=== PATIENT | male | born 1945 | race Hispanic/Latino ===

== ENCOUNTER 2017-04-01 15:53 | Inpatient (IN) | payer MEDICARE ==
[2017-04-01 15:54] VITALS: BMI 37.5
--- NOTE | 2017-04-01 17:04 | C.PDOC ---
History Of Present Illness 71-year-old male, presents to the emergency department with complaints of leg pain. Patient states he has been experiencing worsening pain, swelling and discharge from his right lower leg over the past several days. Denies fevers, nausea/vomiting, or any other associated symptom. No other complaints at this time. Time Seen by Provider: 04/01/17 16:14 Chief Complaint (Nursing): Lower Extremity Problem/Injury History Per: Patient History/Exam Limitations: no limitations Onset/Duration Of Symptoms: Days Current Symptoms Are (Timing): Still Present Severity: Moderate Past Medical History Reviewed: Historical Data, Nursing Documentation, Vital Signs Vital Signs: Last Vital Signs Temp 98 F 04/01/17 16:00 Pulse 57 L 04/01/17 16:00 Resp 16 04/01/17 16:00 BP 127/78 04/01/17 16:00 Pulse Ox 100 04/01/17 17:10 - Medical History PMH: Arthritis (FINGERS), Colonic Polyps (large removed surgically), Fractures ( left leg as toddler), Kidney Stones, Peripheral Edema, Chronic Kidney Disease Family History: States: No Known Family Hx - Social History Hx Tobacco Use: Yes Hx Alcohol Use: Yes - Immunization History Hx Tetanus Toxoid Vaccination: Yes Hx Influenza Vaccination: Yes Hx Pneumococcal Vaccination: Yes Review Of Systems Except As Marked, All Systems Reviewed And Found Negative. Constitutional: Negative for: Fever, Chills Cardiovascular: Negative for: Chest Pain Respiratory: Negative for: Shortness of Breath Gastrointestinal: Negative for: Vomiting Musculoskeletal: Positive for: Leg Pain. Negative for: Back Pain Skin: Negative for: Rash Neurological: Negative for: Weakness, Numbness Physical Exam - Physical Exam Appears: Non-toxic, No Acute Distress Skin: Warm, Dry, No Rash Head: Atraumatic, Normacephalic Eye(s): bilateral: Normal Inspection, PERRL, EOMI Oral Mucosa: Moist Throat: No Erythema, No Exudate Neck: Normal ROM Chest: Symmetrical, No Tenderness Cardiovascular: Rhythm Regular, No Friction Rub, No Murmur Respiratory: Normal Breath Sounds, No Accessory Muscle Use, No Rales, No Rhonchi , No Wheezing Gastrointestinal/Abdominal: Soft, No Tenderness Extremity: Tenderness, Swelling, Other (right medial calf w/ (+)swelling, warmth , tenderness and erythema. 10x10 cm area of weeping and edema. foul smelling discharge. Left leg is normal) Pulses: Left Dorsalis Pedis: Normal, Right Dorsalis Pedis: Normal Neurological/Psych: Oriented x3, Normal Speech, Normal Motor, Normal Sensation Gait: Steady ED Course And Treatment - Laboratory Results Result Diagrams: 04/01/17 17:25 04/01/17 17:25 O2 Sat by Pulse Oximetry: 100 (on RA) Pulse Ox Interpretation: Normal Medical Decision Making Medical Decision Making: Plan: * CMP * CBC * Wound Culture * Reassess and Disposition The case was discussed with Dr. Leblanc (internal medicine oncall) who agrees to admit the patient to his service. Disposition - Disposition Disposition: HOSPITALIZED Disposition Time: 19:02 Condition: FAIR - Clinical Impression Clinical Impression: Cellulitis of right leg - Scribe Statement The provider has reviewed the documentation as recorded by the Scribe (Juan Cherry) All medical record entries made by the Scribe were at my direction and personally dictated by me. I have reviewed the chart and agree that the record accurately reflects my personal performance of the history, physical exam, medical decision making, and the department course for this patient. I have also personally directed, reviewed, and agree with the discharge instructions and disposition.
[2017-04-01 17:28] LABS: BASO % 0.2 % (0.0-2.0); EOS # 0.4 K/uL (0.0-0.7); EOS % 3.4 % (0.0-4.0); HEMATOCRIT 36.2 % (35.0-51.0); LYMPH # 2.2 K/uL (1.0-4.3); LYMPH % 20.2 % (20.0-40.0); MEAN CELL VOLUME 92.8 fL (80.0-94.0); MEAN CORPUSCULAR HEMOGLOBIN 31.2 pg (27.0-31.0); MEAN CORPUSCULAR HGB CONC 33.7 g/dL (33.0-37.0); MEAN PLATELET VOLUME 8.7 fL (7.2-11.7); MONO # 0.8 K/uL (0.0-0.8); MONO % 7.7 % (0.0-10.0); NRBC % 0.1 % (0.0-2.0); RED CELL DISTRIBUTION WIDTH 13.2 % (11.5-14.5); WHITE BLOOD COUNT 10.7 K/uL (4.8-10.8)
[2017-04-01 17:36] LABS: CHLORIDE 106 mmol/L (98-107)
[2017-04-01 17:37] LABS: POTASSIUM 4.2 mmol/L (3.6-5.2); SODIUM 139 mmol/L (132-148)
[2017-04-01 17:39] LABS: ALB/GLOB RATIO 1.2 (1.0-2.1); ALKALINE PHOSPHATASE 71 U/L (38-126); TOTAL PROTEIN 6.3 g/dL (6.3-8.3)
[2017-04-01 17:40] LABS: ALT/SGPT 21 U/L (21-72); BLOOD UREA NITROGEN 19 mg/dL (9-20); CALCIUM 8.4 mg/dl (8.6-10.4); GLUCOSE,RANDOM 97 mg/dL (75-110)
[2017-04-01 17:58] LABS: AST/SGOT 10 U/L (17-59); BILIRUBIN,TOTAL 0.4 mg/dL (0.2-1.3); CARBON DIOXIDE 22 mmol/L (22-30); GFR AFRICAN-AMERICAN > 60
[2017-04-01] MEDS ORDERED: Vancomycin 1 GM 1 GM/250 ML BAG IVPB STA (19:03)
[2017-04-01] MEDS ORDERED: Vancomycin 1 GM 1 GM/250 ML BAG IVPB ONE (19:52)
[2017-04-01] MEDS ORDERED: Oxycodone/Acetaminophen 5/325 mg Tab ONE (19:52)
[2017-04-01] MEDS: Oxycodone/Acetaminophen 5/325 mg Tab PO PRN (20:02)
[2017-04-01] MEDS ORDERED: Aztreonam 1 GM in Sodium Chloride 0.9% 100 ML IVPB STA (20:10)
[2017-04-01 22:00] VITALS: RESP 20
--- NOTE | 2017-04-01 22:26 | CP.PCM.HP ---
History of Present Illness - History of Present Illness History of Present Illness: COMPREHENSIVE HISTORY & PHYSICAL EXAM HPI PT STATES THAT HE HAS LEG SWELLING FOR FEW MONTHS AND RECENTLY THE ULCER HAS INCREASED IN SIZE WITH OOZING AND MORE SWELLING OF R. LEG . NO FEVER, CHILLS OR INJURY PT HAS NO MEDICAL F/U PAST HIST. FEW VISITS WITH UROLOGY FOR KIDNEY STONE [facility]OP[facility] PERSONAL HIST: Smoking. N Alcohol. N Allergy N Travel_- . FAMILY HIST : ROS : Constitutional: Negative for weight change, chills, night sweats, fatigue and usage of assist device. Eyes: Negative for redness, swelling, itching, discharge, vision changes, blurry vision, double vision, glaucoma, cataracts, Ears: Negative for hearing loss, ringing, , tinnitus, vertigo Nose: Negative for rhinorrhea, stuffiness, sniffing, itching, postnasal drip, discoloration, nasal congestion and epistaxis. Throat: Negative for throat clearing, sore throat, hoarseness, difficulty swallowing and difficulty speaking. Respiratory: Negative for cough, , sputum production, chest tightness, wheezing, pleuritic chest pain ,daytime somnolence, chronic cough, hemoptysis, snoring at night, Cardiovascular: Negative for chest pain, palpitations, orthopnea, PND, Edema of legs, leg cramps, angina, claudication, , irregular heartbeat, Neurology: Negative for irritability, muscle weakness, numbness and tingling, seizures, tremors, migraines, slurred speech, syncope, memory loss, mood changes , recurrent headaches Gastrointestinal: Negative for difficulty swallowing, diarrhea, constipation, black stools, rectal bleeding, nausea, flatulence, reflux, poor appetite, changes in bowel habits, abdominal pain Genitourinary: Negative for frequent urination, hematuria, discharge, incontinence, urinary retention, frequent UTI, Psychiatric: Negative for depression, anxiety/panic, suicidal tendencies, Musculoskeletal R. LEG IS SWOLLEN WITH OOZING ULCER . Skin: Negative for rash, ulcers, itching, dry skin and pigmented lesions. P/E: Constitutional: Appears stated age and in no apparent distress. Head: Normocephalic. Ears: External ear canals patent without inflammation. Tympanic membranes intact with normal light reflex and landmark. Eyes: Pupils are central, bilaterally equal, symmetrical and reacts to light with normal movements and no icterus or pallor. Nose: External nares are patent. Mucosa is pink Mouth-Throat: Good general appearance and condition. No post-pharyngeal/oropharyngeal erythema and tonsillar hypertrophy. Good dental hygiene. Neck-Lymphatic: Neck is supple with normal ROM, no thyromegaly, lymph nodes or masses. JVD is normal with no carotid bruit. Lungs: Clear to percussion and auscultation with bilateral normal air entry. Cardiovascular: S1 and S2 are normal with no murmurs, gallops and rub. GI Exam: No hepatomegaly. Abdomen is soft and non-tender. No Organomegaly , masses or hernias are evident and bowel sounds are normal and active. Neurology: Higher function and all cranial nerves intact, with no gross motor or sensory deficit. Superficial and deep reflexes are normal with downwards planters. No cerebellar deficit with normal gait. Musculoskeletal: No tender spots with normal curvature of the spine with no swelling or restricted ROM of the small and large joints. Extremities ULCER ON R LEG WITH SPREADING CELLULITIS WITH EDEMA Skin: No rash, eruptions or abnormal skin pigmentation LAB/RADIOLOGY: ASSESMENT : R/ LEG ULCER/ABSCESS/CELLULITIS /EDEMA PLAN: IV AB ID/POD/VAS EVAL Present on Admission - Present on Admission Any Indicators Present on Admission: No Past Patient History - Infectious Disease Hx of Infectious Diseases: None - Past Medical History & Family History Past Medical History?: Yes - Past Social History Smoking Status: Former Smoker - CARDIAC Hx Peripheral Edema: Yes - PULMONARY Hx Respiratory Disorders: No - NEUROLOGICAL Hx Neurological Disorder: No - HEENT Hx HEENT Problems: Yes Hx Glaucoma: Yes - RENAL Hx Chronic Kidney Disease: Yes Hx Kidney Stones: Yes - ENDOCRINE/METABOLIC Hx Endocrine Disorders: No - HEMATOLOGICAL/ONCOLOGICAL Hx Blood Disorders: No - INTEGUMENTARY Hx Dermatological Problems: No - MUSCULOSKELETAL/RHEUMATOLOGICAL Hx Arthritis: Yes (FINGERS) Hx Fractures: Yes (left leg as toddler) - GASTROINTESTINAL Hx Gastrointestinal Disorders: Yes Hx Bowel Surgery: Yes (COLON RESECTION) - GENITOURINARY/GYNECOLOGICAL Hx Genitourinary Disorders: Yes Hx Prostate Problems: Yes - SURGICAL HISTORY Hx Surgeries: Yes Other/Comment: Cysto, stent insertion 09/29/15. STONE CENTER/LITHOTRIPSY - ANESTHESIA Hx Anesthesia: Yes Hx Anesthesia Reactions: No Hx Malignant Hyperthermia: No Meds Allergies/Adverse Reactions: Allergies Allergy/AdvReac Type Severity Reaction Status Date / Time cefdinir [From Omnicef] Allergy Verified 04/01/17 16:01 Results - Vital Signs Recent Vital Signs: Last Vital Signs Temp 98 F 04/01/17 21:59 Pulse 66 04/01/17 21:59 Resp 20 04/01/17 21:59 BP 103/67 04/01/17 21:59 Pulse Ox 96 04/01/17 21:59 - Labs Result Diagrams: 04/02/17 07:15 04/02/17 07:11
[2017-04-01] MEDS: Aztreonam 1 GM in Sodium Chloride 0.9% 100 ML IVPB SCH (23:50)
[2017-04-02] MEDS: Oxycodone/Acetaminophen 5/325 mg Tab PO PRN ×2 (02:28→16:53)
[2017-04-02 07:34] LABS: BASO # 0.1 K/uL (0.0-0.2); BASO % 0.8 % (0.0-2.0); EOS # 0.3 K/uL (0.0-0.7); EOS % 3.1 % (0.0-4.0); HEMATOCRIT 35.3 % (35.0-51.0); LYMPH # 1.3 K/uL (1.0-4.3); MEAN CELL VOLUME 92.8 fL (80.0-94.0); MEAN CORPUSCULAR HEMOGLOBIN 31.2 pg (27.0-31.0); MEAN CORPUSCULAR HGB CONC 33.6 g/dL (33.0-37.0); MEAN PLATELET VOLUME 8.9 fL (7.2-11.7); MONO # 0.8 K/uL (0.0-0.8); MONO % 8.4 % (0.0-10.0); RED CELL DISTRIBUTION WIDTH 13.5 % (11.5-14.5); WHITE BLOOD COUNT 9.3 K/uL (4.8-10.8)
[2017-04-02 07:38] LABS: CHLORIDE 111 mmol/L (98-107); POTASSIUM 3.6 mmol/L (3.6-5.2); SODIUM 141 mmol/L (132-148)
[2017-04-02 07:41] LABS: BLOOD UREA NITROGEN 16 mg/dL (9-20); CARBON DIOXIDE 22 mmol/L (22-30); GFR AFRICAN-AMERICAN > 60
[2017-04-02 07:42] LABS: CALCIUM 8.4 mg/dl (8.6-10.4); GLUCOSE,RANDOM 104 mg/dL (75-110)
[2017-04-02] MEDS: Aztreonam 1 GM in Sodium Chloride 0.9% 100 ML IVPB SCH ×2 (10:33→22:18)
[2017-04-02] MEDS: Enoxaparin 40 mg Syringe SC SCH (10:33)
--- NOTE | 2017-04-02 14:13 | CP.PCM.PN ---
Subjective - Date & Time of Evaluation Date of Evaluation: 04/02/17 Time of Evaluation: 14:10 - Subjective Subjective: CHIEF COMPLAINTS TODAY : R. LEF PAIN/SWELLING ROS. HEENT : N. Resp : No cough, wheezing ,pleuritic CP ,or hemoptysis Cardio : No anginal CP, PND, orthopnea, palpitation GI : No abd.pain, n/v ,diarrhea or GI bleeding . 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 Musculoskel : No joint swelling , Derm : No rash Psych : Normal affect. Ext : R. LEG SWOLLEN PE. Pt. is alert awake in no distress. V.S As noted in the chart Head ,ear nose,throat and eyes : Normal. Neck : Supple with normal carotids. Lungs: Clear air entry. Heart : S1 & S2 normal with S4. No murmur. Abd : Soft non tender with normal bowel sounds. Neuro : Moves all ext. with no localized deficit. Ext : R. LEG SWOLLEN WITH SPREADING CELLULITIS Derm : No rashes or decubitus ulcer. LABS/RADIOLOGY: C/S GRAM -VE RODS ASSESSMENT/PLAN : IV AB PER ID LOCAL WOUND CARE , POD/VAS EVAL Objective - Vital Signs/Intake and Output Vital Signs (last 24 hours): Temp Pulse Resp BP Pulse Ox 98.8 F 77 20 107/69 98 04/02/17 08:00 04/02/17 08:00 04/02/17 08:00 04/02/17 08:00 04/02/17 08:00 Intake and Output: 04/02/17 04/02/17 11:59 23:59 Intake Total 340 Output Total 400 Balance -60 - Medications Medications: Current Medications Enoxaparin Sodium (Lovenox) 40 mg SC DAILY [facility] Last Admin: 04/02/17 10:33 Dose: 40 mg Aztreonam 1 gm/ Sodium (Chloride) 100 mls @ 100 mls/hr IVPB Q12H K[facility]AN Last Admin: 04/02/17 10:33 Dose: 100 mls/hr Vancomycin/Sodium Chloride (Vancocin) 1 gm in 200 mls @ 133.333 mls/hr IVPB Q24H [facility] Stop: 04/07/17 20:01 Oxycodone/Acetaminophen (Percocet 5/325 Mg Tab) 1 tab PO Q6H PRN PRN Reason: Pain, moderate (4-7) Stop: 04/04/17 19:49 Last Admin: 04/02/17 02:28 Dose: 1 tab - Labs Labs: 04/02/17 07:15 04/02/17 07:11
--- NOTE | 2017-04-02 14:28 | RAD ---
PROCEDURE: Right Ankle Radiographs. HISTORY: cellulitis rt ankle and leg COMPARISON: None FINDINGS: BONES: No fracture. Plantar calcaneal spur noted. JOINTS: Normal. No osteoarthritis. Ankle mortise maintained. Talar dome intact SOFT TISSUES: Circumferential soft tissue swelling. Soft tissue swelling of lower extremity as well. OTHER FINDINGS: None. IMPRESSION: Soft tissue swelling. Plantar calcaneal spur.
--- NOTE | 2017-04-02 19:07 | CP.PCM.CON ---
History of Present Illness - History of Present Illness History of Present Illness: INFECTIOUS DISEASE CONSULT: DICTATED; DICTATION NUMBER; [id number] SEE REPORTS. Past Patient History - Infectious Disease Hx of Infectious Diseases: None - Past Medical History & Family History Past Medical History?: Yes - Past Social History Smoking Status: Former Smoker - CARDIAC Hx Peripheral Edema: Yes - PULMONARY Hx Respiratory Disorders: No - NEUROLOGICAL Hx Neurological Disorder: No - HEENT Hx HEENT Problems: Yes Hx Glaucoma: Yes - RENAL Hx Chronic Kidney Disease: Yes Hx Kidney Stones: Yes - ENDOCRINE/METABOLIC Hx Endocrine Disorders: No - HEMATOLOGICAL/ONCOLOGICAL Hx Blood Disorders: No - INTEGUMENTARY Hx Dermatological Problems: No - MUSCULOSKELETAL/RHEUMATOLOGICAL Hx Arthritis: Yes (FINGERS) Hx Fractures: Yes (left leg as toddler) - GASTROINTESTINAL Hx Gastrointestinal Disorders: Yes Hx Bowel Surgery: Yes (COLON RESECTION) - GENITOURINARY/GYNECOLOGICAL Hx Genitourinary Disorders: Yes Hx Prostate Problems: Yes - SURGICAL HISTORY Hx Surgeries: Yes Other/Comment: Cysto, stent insertion 09/29/15. STONE CENTER/LITHOTRIPSY - ANESTHESIA Hx Anesthesia: Yes Hx Anesthesia Reactions: No Hx Malignant Hyperthermia: No Meds Allergies/Adverse Reactions: Allergies Allergy/AdvReac Type Severity Reaction Status Date / Time cefdinir [From Omnicef] Allergy Verified 04/01/17 16:01 - Medications Medications: Current Medications Enoxaparin Sodium (Lovenox) 40 mg SC DAILY [facility] Last Admin: 04/02/17 10:33 Dose: 40 mg Aztreonam 1 gm/ Sodium (Chloride) 100 mls @ 100 mls/hr IVPB Q12H [facility] Last Admin: 04/02/17 10:33 Dose: 100 mls/hr Vancomycin/Sodium Chloride (Vancocin) 1 gm in 200 mls @ 133.333 mls/hr IVPB Q24H [facility] Stop: 04/07/17 20:01 Oxycodone/Acetaminophen (Percocet 5/325 Mg Tab) 1 tab PO Q6H PRN PRN Reason: Pain, moderate (4-7) Stop: 04/04/17 19:49 Last Admin: 04/02/17 16:53 Dose: 1 tab Results - Vital Signs Recent Vital Signs: Last Vital Signs Temp 98.0 F 04/02/17 15:10 Pulse 75 04/02/17 15:10 Resp 20 04/02/17 15:10 BP 124/73 04/02/17 15:10 Pulse Ox 100 04/02/17 15:10 - Labs Result Diagrams: 04/02/17 07:15 04/02/17 07:11 Labs: Laboratory Results - last 24 hr 04/02/17 04/02/17 04/02/17 07:11 07:11 07:15 WBC 9.3 RBC 3.80 L Hgb 11.8 L Hct 35.3 MCV 92.8 MCH 31.2 H MCHC 33.6 RDW 13.5 Plt Count 202 MPV 8.9 Neut % (Auto) 73.7 Lymph % (Auto) 14.0 L [place] % (Auto) 8.4 Eos % (Auto) 3.1 Baso % (Auto) 0.8 Neut # 6.8 Lymph # 1.3 [place] # 0.8 Eos # 0.3 Baso # 0.1 ESR 15 Sodium 141 Potassium 3.6 Chloride 111 H Carbon Dioxide 22 Anion Gap 12 BUN 16 Creatinine 1.0 Est GFR ( Amer) > 60 Est GFR (Non-Af Amer) > 60 Random Glucose 104 Calcium 8.4 L C-React Prot High Sens 7.84 H
[2017-04-02] MEDS: Vancomycin 1 gm/NS 200 ml 1 GM/200 ML BAG IVPB SCH (19:53)
--- NOTE | 2017-04-02 23:40 | CON ---
DATE: 04/02/2017 REQUESTING PHYSICIAN: Dr. Leblanc. REASON FOR CONSULTATION: Extensive cellulitis right lower extremity and edema. HISTORY OF PRESENT ILLNESS: The patient is a 71-year-old male with history of arthritis, fractures o f the left leg as a toddler, kidney stones, colon polyps, and chronic kidney disease who was admitted via the Emergency Room because of experiencing worsening pain and swelling and discharge from his ri ght lower extremity over the past several days. The patient tried to nurse himself by undergoing soa ks and bandages, but with no relief, until the pain got so worse that he came to the ER for further a dvice. The patient denies any fevers or chills. Denies any nausea or vomiting or any other associat ed symptoms. The patient states he has been having these problems off and on, but recently has gotte n worse. The patient was advised admission for further evaluation and septic workup including wound cultures and blood cultures. Infectious disease consultation requested by PMD for further evaluation of IV antibiotics as the patient is ALLERGIC TO CEFDINIR. PAST MEDICAL HISTORY: As above, history of arthritis, especially of the fingers. Colon polyp surgic ally removed in the past, fractures left leg as a toddler, kidney stones, peripheral edema, chronic k idney disease. FAMILY HISTORY: Unknown denies any history of diabetes or hypertension in the family or heart diseas e. SOCIAL HISTORY: He states he used to smoke, but has quit about 10 years ago. History of alcohol use socially . IMMUNIZATION HISTORY: Has had tetanus toxoid vaccination and is up-to-date on influenza vaccination and pneumococcal vaccination. ALLERGIES: As reported above, ALLERGIC TO CEFDINIR. REVIEW OF SYSTEMS: Presently: CONSTITUTIONAL: Denies any fever or chills. CARDIOVASCULAR: Denies any chest pain. RESPIRATORY: Denies any shortness of breath or cough, except shortness of breath on exertion. GASTROINTESTINAL: Denies any nausea, vomiting or diarrhea or constipation. MUSCULOSKELETAL: Complains of excruciating pain in left leg, especially during the past few days. D enies any history of back pain. Complains of pain, arthritis, especially in both hands. SKIN: Negative for rash, except for the right lower extremity. CENTRAL NERVOUS SYSTEM: Denies any weakness, numbness, tingling sensation in the lower extremities. MEDICATIONS: As per chart reviewed. Presently, the patient started on IV vancomycin 1 gram q. 24 ho urly. PHYSICAL EXAMINATION: GENERAL: The patient is awake, alert, not in any acute distress. VITAL SIGNS: Afebrile, blood pressure 127/78, respirations 16, pulse of 57, pulse ox 100% on room ai r. HEENT: Pupils equal, reactive to light and accommodation. Extraocular movements full. Fundus negat oscar. Sclerae nonicteric. Conjunctivae normal. JVP not elevated. NECK: Appears to be supple. No lymphadenopathy. LUNGS: Fair air entry. Few basilar rales. CARDIOVASCULAR SYSTEM: S1, S2 regular. No murmur or rub. ABDOMEN: Obese, soft, nontender. Bowel sounds are present. EXTREMITIES: Right lower extremity, especially medial calf with swelling and warmth and tenderness w ith erythema extending over the entire right lower leg from the foot on up to the knee. There is als o an area of denudation 10 cm x 10 cm of weeping and edema and foul smelling discharge. Left leg leatha ears to be normal. Pulses: Dorsalis pedis left is normal. Right dorsalis pedis difficult to palpat e, but present. CENTRAL NERVOUS SYSTEM: Awake, alert, not in any acute distress. Normal speech. Motor and sensory sensation seem to be intact. Gait appears to be steady. LABORATORY DATA: Presently, WBC on admission was 10.7, presently 9.3; H and H is 11.8 and 35.3; plat elets 202. Creatinine 1, BUN of 16. CRP 7.84. Wound cultures showing gram-negative manasa 1 and gram- negative manasa 2 with gram-positive cocci, identification pending. IMPRESSION: 1. Cellulitis, right lower extremity with infected ulcers, most likely ischemic, rule out peripheral vascular disease. 2. History of kidney stones. 3. Renal insufficiency. 4. Colon polyps. 5. Arthritis. PLAN: 1. Louis cultures. We will get wound culture sensitivity. We will get sed rate and CRP. Continue IV vancomycin 1 gram daily as ordered day #1. 2. We will add IV Azactam 1 gram loading dose followed by if tolerated q. 12 hourly. As reported, t he patient states the patient tolerated it. 3. Follow up renal functions closely. Podiatry consult with Dr. Jassi Minor in progress. Arterial D oppler studies as ordered by PMD. The patient will need vascular workup and IV antibiotics for a pro longed period of time. We will follow along with you. Thank you very much for allowing me to participate in the care of your patient. We will adjust antib iotics after cultures are obtained and final identification pending. Mustapha Patel MD cc: [id number] TT: 04/02/2017 23:39:24 Confirmation # [id number] Dictation # [id number] mn
[2017-04-03 09:19] LABS: BASO % 0.2 % (0.0-2.0); EOS # 0.2 K/uL (0.0-0.7); EOS % 2.7 % (0.0-4.0); HEMATOCRIT 35.6 % (35.0-51.0); LYMPH # 1.3 K/uL (1.0-4.3); LYMPH % 15.5 % (20.0-40.0); MEAN CORPUSCULAR HEMOGLOBIN 31.2 pg (27.0-31.0); MEAN CORPUSCULAR HGB CONC 33.2 g/dL (33.0-37.0); MEAN PLATELET VOLUME 9.2 fL (7.2-11.7); MONO # 0.7 K/uL (0.0-0.8); MONO % 8.4 % (0.0-10.0); RED CELL DISTRIBUTION WIDTH 13.4 % (11.5-14.5); WHITE BLOOD COUNT 8.6 K/uL (4.8-10.8)
[2017-04-03 09:49] LABS: CHLORIDE 106 mmol/L (98-107); POTASSIUM 3.5 mmol/L (3.6-5.2); SODIUM 138 mmol/L (132-148)
[2017-04-03 09:51] LABS: AST/SGOT 11 U/L (17-59); BILIRUBIN,TOTAL 0.7 mg/dL (0.2-1.3); CARBON DIOXIDE 21 mmol/L (22-30); GFR AFRICAN-AMERICAN > 60
[2017-04-03 09:52] LABS: ALB/GLOB RATIO 1.1 (1.0-2.1); ALKALINE PHOSPHATASE 64 U/L (38-126); ALT/SGPT 21 U/L (21-72); BLOOD UREA NITROGEN 16 mg/dL (9-20); CALCIUM 8.1 mg/dl (8.6-10.4); GLUCOSE,RANDOM 171 mg/dL (75-110); TOTAL PROTEIN 5.9 g/dL (6.3-8.3)
[2017-04-03] MEDS: Enoxaparin 40 mg Syringe SC SCH (09:53)
[2017-04-03] MEDS: Oxycodone/Acetaminophen 5/325 mg Tab PO PRN ×2 (09:53→22:26)
[2017-04-03] MEDS: Aztreonam 1 GM in Sodium Chloride 0.9% 100 ML IVPB SCH ×2 (09:59→22:28)
--- NOTE | 2017-04-03 11:55 | CP.PCM.PN ---
Subjective - Date & Time of Evaluation Date of Evaluation: 04/03/17 Time of Evaluation: 11:54 - Subjective Subjective: CHIEF COMPLAINTS TODAY : R. LEG PAIN/SWELLING ROS. HEENT : N. Resp : No cough, wheezing ,pleuritic CP ,or hemoptysis Cardio : No anginal CP, PND, orthopnea, palpitation GI : No abd.pain, n/v ,diarrhea or GI bleeding . 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 Musculoskel : No joint swelling , Derm : No rash Psych : Normal affect. Ext : R. LEG SWOLLEN PE. Pt. is alert awake in no distress. V.S As noted in the chart Head ,ear nose,throat and eyes : Normal. Neck : Supple with normal carotids. Lungs: Clear air entry. Heart : S1 & S2 normal with S4. No murmur. Abd : Soft non tender with normal bowel sounds. Neuro : Moves all ext. with no localized deficit. Ext : R. LEG SWOLLEN WITH SPREADING CELLULITIS DISCOLORATION Derm : No rashes or decubitus ulcer. LABS/RADIOLOGY: C/S GRAM -VE RODS SERRSTIA ASSESSMENT/PLAN : IV AB PER ID LOCAL WOUND CARE , VASCULAR EVAL SO FAR SUGARS ARE OK Objective - Vital Signs/Intake and Output Vital Signs (last 24 hours): Temp Pulse Resp BP Pulse Ox 97.3 F L 69 20 118/66 98 04/03/17 08:05 04/03/17 08:05 04/03/17 08:05 04/03/17 08:05 04/03/17 08:05 Intake and Output: 04/02/17 04/03/17 23:59 11:59 Intake Total 650 Balance 650 - Medications Medications: Current Medications Enoxaparin Sodium (Lovenox) 40 mg SC DAILY [facility] Last Admin: 04/03/17 09:53 Dose: 40 mg Aztreonam 1 gm/ Sodium (Chloride) 100 mls @ 100 mls/hr IVPB Q12H [facility] Last Admin: 04/03/17 09:59 Dose: 100 mls/hr Vancomycin/Sodium Chloride (Vancocin) 1 gm in 200 mls @ 133.333 mls/hr IVPB Q24H [facility] Stop: 04/07/17 20:01 Last Admin: 04/02/17 19:53 Dose: 133.333 mls/hr Oxycodone/Acetaminophen (Percocet 5/325 Mg Tab) 1 tab PO Q6H PRN PRN Reason: Pain, moderate (4-7) Stop: 04/04/17 19:49 Last Admin: 04/03/17 09:53 Dose: 1 tab - Labs Labs: 04/03/17 09:03 04/03/17 09:03
--- NOTE | 2017-04-03 12:09 | CP.PCM.CON ---
History of Present Illness - History of Present Illness History of Present Illness: 71 year old male patient seen at bedside resting comfortably, AAOx3 and NAD. Patient is complaining of pain to his right leg over the past few days. Patient states that he has had cellulitis in the past, but believes his leg looks worse than previous episodes. Patient denies N/V/F/D/SOB/CP. No other pedal complaints at this time. PMHx: Colinic polyps, fractures, kidney stones, peripheral edema, chronic kidney disease PSH:Colon removal Fx: unknown: All: cefdinir Review of Systems - Review of Systems Review of Systems: All systems reviewed and are negative except per HPI Past Patient History - Infectious Disease Hx of Infectious Diseases: None - Past Medical History & Family History Past Medical History?: Yes - Past Social History Smoking Status: Former Smoker - CARDIAC Hx Peripheral Edema: Yes - PULMONARY Hx Respiratory Disorders: No - NEUROLOGICAL Hx Neurological Disorder: No - HEENT Hx HEENT Problems: Yes Hx Glaucoma: Yes - RENAL Hx Chronic Kidney Disease: Yes Hx Kidney Stones: Yes - ENDOCRINE/METABOLIC Hx Endocrine Disorders: No - HEMATOLOGICAL/ONCOLOGICAL Hx Blood Disorders: No - INTEGUMENTARY Hx Dermatological Problems: No - MUSCULOSKELETAL/RHEUMATOLOGICAL Hx Arthritis: Yes (FINGERS) Hx Fractures: Yes (left leg as toddler) - GASTROINTESTINAL Hx Gastrointestinal Disorders: Yes Hx Bowel Surgery: Yes (COLON RESECTION) - GENITOURINARY/GYNECOLOGICAL Hx Genitourinary Disorders: Yes Hx Prostate Problems: Yes - SURGICAL HISTORY Hx Surgeries: Yes Other/Comment: Cysto, stent insertion 09/29/15. [facility]/LITHOTRIPSY - ANESTHESIA Hx Anesthesia: Yes Hx Anesthesia Reactions: No Hx Malignant Hyperthermia: No Meds Allergies/Adverse Reactions: Allergies Allergy/AdvReac Type Severity Reaction Status Date / Time cefdinir [From Omnicef] Allergy Verified 04/01/17 16:01 - Medications Medications: Current Medications Enoxaparin Sodium (Lovenox) 40 mg SC DAILY [facility] Last Admin: 04/03/17 09:53 Dose: 40 mg Aztreonam 1 gm/ Sodium (Chloride) 100 mls @ 100 mls/hr IVPB Q12H [facility] Last Admin: 04/03/17 09:59 Dose: 100 mls/hr Vancomycin/Sodium Chloride (Vancocin) 1 gm in 200 mls @ 133.333 mls/hr IVPB Q24H [facility] Stop: 04/07/17 20:01 Last Admin: 04/02/17 19:53 Dose: 133.333 mls/hr Oxycodone/Acetaminophen (Percocet 5/325 Mg Tab) 1 tab PO Q6H PRN PRN Reason: Pain, moderate (4-7) Stop: 04/04/17 19:49 Last Admin: 04/03/17 09:53 Dose: 1 tab Physical Exam - Constitutional Appears: Well, Non-toxic, No Acute Distress - Extremities Exam Additional comments: Vasc: DP and PT pulses palpable b/l. Erythema noted to lower 1/2 of right leg circumfirentially. Edema noted to right leg. Mild increase in skin temperature to RLE wound. Neuro: Gross sensation diminished. Derm: Multiple superficial ulcerations noted to right leg circumfirentially. Weeping serosanguious drainage noted. Mild malodor noted, no purulence noted. Ortho: Pain on palpation to right lower extremity. - Neurological Exam Neurological exam: Alert, Oriented x3 - Psychiatric Exam Psychiatric exam: Normal Affect, Normal Mood Results - Vital Signs Recent Vital Signs: Last Vital Signs Temp 97.3 F L 04/03/17 08:05 Pulse 69 04/03/17 08:05 Resp 20 04/03/17 08:05 BP 118/66 04/03/17 08:05 Pulse Ox 98 04/03/17 08:05 - Labs Result Diagrams: 04/03/17 09:03 04/03/17 09:03 Labs: Laboratory Results - last 24 hr 04/03/17 04/03/17 09:03 09:03 WBC 8.6 RBC 3.79 L Hgb 11.8 L Hct 35.6 MCV 94.0 MCH 31.2 H MCHC 33.2 RDW 13.4 Plt Count 187 MPV 9.2 Neut % (Auto) 73.2 Lymph % (Auto) 15.5 L Sutter % (Auto) 8.4 Eos % (Auto) 2.7 Baso % (Auto) 0.2 Neut # 6.3 Lymph # 1.3 Sutter # 0.7 Eos # 0.2 Baso # 0.0 Sodium 138 Potassium 3.5 L Chloride 106 Carbon Dioxide 21 L Anion Gap 15 BUN 16 Creatinine 1.0 Est GFR ( Amer) > 60 Est GFR (Non-Af Amer) > 60 Random Glucose 171 H Calcium 8.1 L Total Bilirubin 0.7 AST 11 L ALT 21 Alkaline Phosphatase 64 Total Protein 5.9 L Albumin 3.0 L Globulin 2.8 Albumin/Globulin Ratio 1.1 Assessment & Plan - Assessment and Plan (Free Text) Assessment: 71 year old male with cellulitis to RLE. Plan: Patient seen and evaluated at bedside. Charts, labs, vitals reviewed = afebrile, WBC WNL. Discussed with attending, Dr. Minor. Wound cleaned with saline and dressed with xeroform, 4x4 gauze, abd pads, and kerlix. Continue with IV abx as per ID. Podiatry will continue to follow while in house.
[2017-04-03] MEDS ORDERED: Potassium Chloride 20 mEq ER Tab PO ONE (18:00)
--- NOTE | 2017-04-03 18:51 | CP.PCM.PN ---
Subjective - Date & Time of Evaluation Date of Evaluation: 04/03/17 Time of Evaluation: 18:51 - Subjective Subjective: CHIEF COMPLAINTS TODAY : AFEBRILE C/O R. LEG PAIN/SWELLING seen by podiatry 04/03/17 and appreciated. ROS. HEENT : N. Resp : No cough, wheezing ,pleuritic CP ,or hemoptysis Cardio : No anginal CP, PND, orthopnea, palpitation GI : No abd.pain, n/v ,diarrhea or GI bleeding . 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 Musculoskel : No joint swelling , Derm : No rash Psych : Normal affect. Ext : R. LEG SWOLLEN /WARM WITH ULCERS PE. Pt. is alert awake in no distress. V.S As noted in the chart Head ,ear nose,throat and eyes : Normal. Neck : Supple with normal carotids. Lungs: Clear air entry. Heart : S1 & S2 normal with S4. No murmur. Abd : Soft non tender with normal bowel sounds. Neuro : Moves all ext. with no localized deficit. Ext : R. LEG SWOLLEN WITH SPREADING CELLULITIS DISCOLORATION ,+VE MALODOROUS DRAINAGE. Derm : No rashes or decubitus ulcer. LABS/RADIOLOGY: C/S RT LEG - [facility]ERR[facility] MARCESENS,[facility] b. ASSESSMENT RT.LE CELLULITIS/INFECTED ULCERS ? ISCHEMIC R/O PVD. CRI. HX .KIDNEY STONES /PLAN : CONTINUE iv AZACTAM 1 G EVERY 12 HOURLY 04/02/17. CONTINUE iv VANCOMYCIN 1 G EVERY 24 HOURLY. 04/01/17 LOCAL WOUND CARE PER PODIATRY VASCULAR EVAL IN PROGRESS. Objective - Vital Signs/Intake and Output Vital Signs (last 24 hours): Temp Pulse Resp BP Pulse Ox 98.8 F 71 20 120/69 97 04/03/17 15:00 04/03/17 15:00 04/03/17 15:00 04/03/17 15:00 04/03/17 15:00 Intake and Output: 04/03/17 04/03/17 06:59 18:59 Intake Total 650 Balance 650 - Medications Medications: Current Medications Enoxaparin Sodium (Lovenox) 40 mg SC DAILY [facility] Last Admin: 04/03/17 09:53 Dose: 40 mg Aztreonam 1 gm/ Sodium (Chloride) 100 mls @ 100 mls/hr IVPB Q12H [facility] Last Admin: 04/03/17 09:59 Dose: 100 mls/hr Vancomycin/Sodium Chloride (Vancocin) 1 gm in 200 mls @ 133.333 mls/hr IVPB Q24H [facility] Stop: 04/07/17 20:01 Last Admin: 04/02/17 19:53 Dose: 133.333 mls/hr Oxycodone/Acetaminophen (Percocet 5/325 Mg Tab) 1 tab PO Q6H PRN PRN Reason: Pain, moderate (4-7) Stop: 04/04/17 19:49 Last Admin: 04/03/17 09:53 Dose: 1 tab - Labs Labs: 04/03/17 09:03 04/03/17 09:03
[2017-04-03] MEDS: Vancomycin 1 gm/NS 200 ml 1 GM/200 ML BAG IVPB SCH (20:41)
--- NOTE | 2017-04-04 00:31 | CP.PCM.CON ---
<Jude Taveras - Last Filed: 04/04/17 01:01> History of Present Illness - History of Present Illness History of Present Illness: SURGERY CONSULT NOTE FOR DR. FENG 71M presents with Right lower extremity pain and swelling. Patient states he has had this for years but the pain became much worse on Tuesday. He denies any fevers, chills. He states the right lower leg also has wounds that weep clear fluid and soak the dressings on his leg. He denies foul smelling odor and purulent discharge from ulcers. Denies loss of sensation and motor function in that leg. The left leg is completely asymptomatic. PMH: Colonic polyp, kidney stone, CKD, right leg edema PSH: Colectomy Social: denies tobacco, alcohol abuse Allergies: Cefdinir Past Patient History - Infectious Disease Hx of Infectious Diseases: None - Past Medical History & Family History Past Medical History?: Yes - Past Social History Smoking Status: Former Smoker - CARDIAC Hx Peripheral Edema: Yes - PULMONARY Hx Respiratory Disorders: No - NEUROLOGICAL Hx Neurological Disorder: No - HEENT Hx HEENT Problems: Yes Hx Glaucoma: Yes - RENAL Hx Chronic Kidney Disease: Yes Hx Kidney Stones: Yes - ENDOCRINE/METABOLIC Hx Endocrine Disorders: No - HEMATOLOGICAL/ONCOLOGICAL Hx Blood Disorders: No - INTEGUMENTARY Hx Dermatological Problems: No - MUSCULOSKELETAL/RHEUMATOLOGICAL Hx Arthritis: Yes (FINGERS) Hx Fractures: Yes (left leg as toddler) - GASTROINTESTINAL Hx Gastrointestinal Disorders: Yes Hx Bowel Surgery: Yes (COLON RESECTION) - GENITOURINARY/GYNECOLOGICAL Hx Genitourinary Disorders: Yes Hx Prostate Problems: Yes - SURGICAL HISTORY Hx Surgeries: Yes Other/Comment: Cysto, stent insertion 09/29/15. [facility]/LITHOTRIPSY - ANESTHESIA Hx Anesthesia: Yes Hx Anesthesia Reactions: No Hx Malignant Hyperthermia: No Meds Allergies/Adverse Reactions: Allergies Allergy/AdvReac Type Severity Reaction Status Date / Time cefdinir [From Omnicef] Allergy Verified 04/01/17 16:01 - Medications Medications: Current Medications Enoxaparin Sodium (Lovenox) 40 mg SC DAILY [facility] Last Admin: 04/03/17 09:53 Dose: 40 mg Aztreonam 1 gm/ Sodium (Chloride) 100 mls @ 100 mls/hr IVPB Q12H [facility] Last Admin: 04/03/17 22:28 Dose: 100 mls/hr Vancomycin/Sodium Chloride (Vancocin) 1 gm in 200 mls @ 133.333 mls/hr IVPB Q24H [facility] Stop: 04/07/17 20:01 Last Admin: 04/03/17 20:41 Dose: 133.333 mls/hr Oxycodone/Acetaminophen (Percocet 5/325 Mg Tab) 1 tab PO Q6H PRN PRN Reason: Pain, moderate (4-7) Stop: 04/04/17 19:49 Last Admin: 04/03/17 22:26 Dose: 1 tab Physical Exam - Constitutional Appears: Non-toxic, No Acute Distress Additional comments: obese - Head Exam Head Exam: ATRAUMATIC - Eye Exam Eye Exam: EOMI, PERRL - ENT Exam ENT Exam: Mucous Membranes Moist - Respiratory Exam Respiratory Exam: Clear to Auscultation Bilateral, NORMAL BREATHING PATTERN - Cardiovascular Exam Cardiovascular Exam: REGULAR RHYTHM, +S1, +S2 - GI/Abdominal Exam GI & Abdominal Exam: Soft. absent: Distended, Firm, Guarding, Rebound, Rigid, Tenderness Additional comments: umbilical hernia, scab in mid abdomen from incision scar - Extremities Exam Additional comments: right leg edema from below knee, dry skin in right lower leg, ulcers with serous drainage, dressed with curlex - normal sensation and motor function in right leg. - Neurological Exam Neurological exam: Alert, Oriented x3 - Psychiatric Exam Psychiatric exam: Normal Affect, Normal Mood - Skin Skin Exam: Dry, Intact, Normal Color, Warm Results - Vital Signs Recent Vital Signs: Last Vital Signs Temp 98.8 F 04/03/17 15:00 Pulse 71 04/03/17 15:00 Resp 20 04/03/17 15:00 BP 120/69 04/03/17 15:00 Pulse Ox 97 04/03/17 15:00 - Labs Result Diagrams: 04/03/17 09:03 04/03/17 09:03 Labs: Laboratory Results - last 24 hr 04/03/17 04/03/17 09:03 09:03 WBC 8.6 RBC 3.79 L Hgb 11.8 L Hct 35.6 MCV 94.0 MCH 31.2 H MCHC 33.2 RDW 13.4 Plt Count 187 MPV 9.2 Neut % (Auto) 73.2 Lymph % (Auto) 15.5 L Hubbard % (Auto) 8.4 Eos % (Auto) 2.7 Baso % (Auto) 0.2 Neut # 6.3 Lymph # 1.3 Hubbard # 0.7 Eos # 0.2 Baso # 0.0 Sodium 138 Potassium 3.5 L Chloride 106 Carbon Dioxide 21 L Anion Gap 15 BUN 16 Creatinine 1.0 Est GFR ( Amer) > 60 Est GFR (Non-Af Amer) > 60 Random Glucose 171 H Calcium 8.1 L Total Bilirubin 0.7 AST 11 L ALT 21 Alkaline Phosphatase 64 Total Protein 5.9 L Albumin 3.0 L Globulin 2.8 Albumin/Globulin Ratio 1.1 Assessment & Plan - Assessment and Plan (Free Text) Assessment: 71M with lower extremity pain, swelling and ulcers, likely 2/2 chronic venous insufficiency Plan: - Continue antibiotics - Wound/dressing care as per podiatry - Patient was ordered arterial doppler of LE. will follow up results. Further recs discuss with Dr. Feng/[place] Taveras, PGY1 <Mark Feng - Last Filed: 04/04/17 15:15> History of Present Illness - History of Present Illness History of Present Illness: Patient seen and examined. Chart reviewed. In brief, 71 year-old male admitted with recurrent bout of right lower extremity cellulitis and weeping circumferential gaiter area ulcer. By patient's report, he saw Dr. Leone from vascular surgery as an outpatient within last few months and was told that he has a venous problem with recommendation of conservative management such as compression therapy and leg elevation. Patient has no obvious stigmata of PAD - both feet are warm, motor-sensory intact, with palpable DP pulses bilaterally. Clinically, right lower extremity presentation is suggestive of chronic venous insufficiency with ulcer. Patient denies known history of DVT or US-diagnosed venous insufficiency. He has not been compliant with compression therapy at home. I recommend venous duplex ultrasound of the right lower extremity to check for DVT as well as for deep and superficial venous insufficiency. Antibiotic treatment for infection. Local wound care with absorbent dressing. Compression therapy with EVON bandage and leg elevation. Meds - Medications Medications: Current Medications Enoxaparin Sodium (Lovenox) 40 mg SC DAILY [facility] Last Admin: 04/04/17 12:01 Dose: 40 mg Aztreonam 1 gm/ Sodium (Chloride) 100 mls @ 100 mls/hr IVPB Q12H [facility] Last Admin: 04/04/17 11:13 Dose: 100 mls/hr Vancomycin/Sodium Chloride (Vancocin) 1 gm in 200 mls @ 133.333 mls/hr IVPB Q24H [facility] Stop: 04/07/17 20:01 Last Admin: 04/03/17 20:41 Dose: 133.333 mls/hr Oxycodone/Acetaminophen (Percocet 5/325 Mg Tab) 1 tab PO Q6H PRN PRN Reason: Pain, moderate (4-7) Stop: 04/04/17 19:49 Last Admin: 04/03/17 22:26 Dose: 1 tab Results - Vital Signs Recent Vital Signs: Last Vital Signs Temp 98.1 F 04/04/17 08:26 Pulse 64 04/04/17 08:26 Resp 20 04/04/17 08:26 BP 113/70 04/04/17 08:26 Pulse Ox 98 04/04/17 08:26 - Labs Result Diagrams: 04/04/17 08:07 04/04/17 08:07 Labs: Laboratory Results - last 24 hr 04/04/17 04/04/17 08:07 08:07 WBC 8.1 RBC 3.83 L Hgb 12.1 Hct 35.9 MCV 93.8 MCH 31.5 H MCHC 33.6 RDW 13.5 Plt Count 206 MPV 9.0 Neut % (Auto) 72.2 Lymph % (Auto) 15.1 L Hubbard % (Auto) 8.4 Eos % (Auto) 3.8 Baso % (Auto) 0.5 Neut # 5.9 Lymph # 1.2 Hubbard # 0.7 Eos # 0.3 Baso # 0.0 Sodium 140 Potassium 4.3 Chloride 108 H Carbon Dioxide 22 Anion Gap 14 BUN 17 Creatinine 1.0 Est GFR ( Amer) > 60 Est GFR (Non-Af Amer) > 60 Random Glucose 114 H Calcium 8.7 Total Bilirubin 0.7 AST 14 L D ALT 16 L D Alkaline Phosphatase 71 Total Protein 6.2 L Albumin 3.2 L Globulin 3.0 Albumin/Globulin Ratio 1.1
--- NOTE | 2017-04-04 07:45 | CP.PCM.PN ---
<Troy Fish - Last Filed: 04/04/17 07:42> Subjective - Date & Time of Evaluation Date of Evaluation: 04/04/17 Time of Evaluation: 07:42 - Subjective Subjective: Surgery: Dr. Feng Pt seen and examined. Has pain at R leg. No improvement in pain Objective - Vital Signs/Intake and Output Vital Signs (last 24 hours): Temp Pulse Resp BP Pulse Ox 97.8 F 64 20 111/71 99 04/04/17 00:00 04/04/17 00:00 04/04/17 00:00 04/04/17 00:00 04/04/17 00:00 Intake and Output: 04/04/17 04/04/17 06:59 18:59 Intake Total 650 Output Total 600 Balance 50 - Medications Medications: Current Medications Enoxaparin Sodium (Lovenox) 40 mg SC DAILY [facility] Last Admin: 04/03/17 09:53 Dose: 40 mg Aztreonam 1 gm/ Sodium (Chloride) 100 mls @ 100 mls/hr IVPB Q12H [facility] Last Admin: 04/03/17 22:28 Dose: 100 mls/hr Vancomycin/Sodium Chloride (Vancocin) 1 gm in 200 mls @ 133.333 mls/hr IVPB Q24H [facility] Stop: 04/07/17 20:01 Last Admin: 04/03/17 20:41 Dose: 133.333 mls/hr Oxycodone/Acetaminophen (Percocet 5/325 Mg Tab) 1 tab PO Q6H PRN PRN Reason: Pain, moderate (4-7) Stop: 04/04/17 19:49 Last Admin: 04/03/17 22:26 Dose: 1 tab - Labs Labs: 04/03/17 09:03 04/03/17 09:03 - Constitutional Appears: Non-toxic, No Acute Distress - Head Exam Head Exam: ATRAUMATIC, NORMOCEPHALIC - Eye Exam Eye Exam: EOMI - ENT Exam ENT Exam: Mucous Membranes Moist - Neck Exam Neck Exam: Full ROM - Respiratory Exam Respiratory Exam: NORMAL BREATHING PATTERN. absent: Accessory Muscle Use, Respiratory Distress - GI/Abdominal Exam GI & Abdominal Exam: Soft. absent: Tenderness - Extremities Exam Additional comments: RLE: edematous, chronic venous stasis changes, tender to palpation, dressing in place - Neurological Exam Neurological Exam: Alert, Awake, Oriented x3 Assessment and Plan - Assessment and Plan (Free Text) Assessment: 71M w. RLE cellulitis -F/U arterial duplex -keep leg elevated -c/w abx -d/w attending Abe PGY2 <Mark Feng - Last Filed: 04/04/17 15:17> Subjective - Subjective Subjective: Patient seen and examined. Please, see consult note. Cancel arterial ultrasound and order venous Duplex ultrasound of the right lower extremity to assess for DVT and deep and superficial venous insufficiency. Continue antibiotics. Local wound care. Leg elevation and compression therapy. Objective - Vital Signs/Intake and Output Vital Signs (last 24 hours): Temp Pulse Resp BP Pulse Ox 98.1 F 64 20 113/70 98 04/04/17 08:26 04/04/17 08:26 04/04/17 08:26 04/04/17 08:26 04/04/17 08:26 Intake and Output: 04/04/17 04/04/17 06:59 18:59 Intake Total 650 Output Total 600 Balance 50 - Medications Medications: Current Medications Enoxaparin Sodium (Lovenox) 40 mg SC DAILY [facility] Last Admin: 04/04/17 12:01 Dose: 40 mg Aztreonam 1 gm/ Sodium (Chloride) 100 mls @ 100 mls/hr IVPB Q12H [facility] Last Admin: 04/04/17 11:13 Dose: 100 mls/hr Vancomycin/Sodium Chloride (Vancocin) 1 gm in 200 mls @ 133.333 mls/hr IVPB Q24H [facility] Stop: 04/07/17 20:01 Last Admin: 04/03/17 20:41 Dose: 133.333 mls/hr Oxycodone/Acetaminophen (Percocet 5/325 Mg Tab) 1 tab PO Q6H PRN PRN Reason: Pain, moderate (4-7) Stop: 04/04/17 19:49 Last Admin: 04/03/17 22:26 Dose: 1 tab - Labs Labs: 04/04/17 08:07 04/04/17 08:07
[2017-04-04 08:14] LABS: BASO % 0.5 % (0.0-2.0); EOS # 0.3 K/uL (0.0-0.7); EOS % 3.8 % (0.0-4.0); HEMATOCRIT 35.9 % (35.0-51.0); LYMPH # 1.2 K/uL (1.0-4.3); LYMPH % 15.1 % (20.0-40.0); MEAN CELL VOLUME 93.8 fL (80.0-94.0); MEAN CORPUSCULAR HEMOGLOBIN 31.5 pg (27.0-31.0); MEAN CORPUSCULAR HGB CONC 33.6 g/dL (33.0-37.0); MONO # 0.7 K/uL (0.0-0.8); MONO % 8.4 % (0.0-10.0); NRBC % 0.1 % (0.0-2.0); RED CELL DISTRIBUTION WIDTH 13.5 % (11.5-14.5); WHITE BLOOD COUNT 8.1 K/uL (4.8-10.8)
[2017-04-04 08:35] LABS: CHLORIDE 108 mmol/L (98-107)
[2017-04-04 08:36] LABS: POTASSIUM 4.3 mmol/L (3.6-5.2); SODIUM 140 mmol/L (132-148)
[2017-04-04 08:39] LABS: ALB/GLOB RATIO 1.1 (1.0-2.1); AST/SGOT 14 U/L (17-59); BILIRUBIN,TOTAL 0.7 mg/dL (0.2-1.3); CARBON DIOXIDE 22 mmol/L (22-30); GFR AFRICAN-AMERICAN > 60; TOTAL PROTEIN 6.2 g/dL (6.3-8.3)
[2017-04-04 08:40] LABS: ALKALINE PHOSPHATASE 71 U/L (38-126); ALT/SGPT 16 U/L (21-72); BLOOD UREA NITROGEN 17 mg/dL (9-20); CALCIUM 8.7 mg/dl (8.6-10.4); GLUCOSE,RANDOM 114 mg/dL (75-110)
[2017-04-04] MEDS: Aztreonam 1 GM in Sodium Chloride 0.9% 100 ML IVPB SCH ×2 (11:13→23:17)
[2017-04-04] MEDS: Enoxaparin 40 mg Syringe SC SCH (12:01)
--- NOTE | 2017-04-04 12:22 | CARD ---
APPROVED REPORT EXAM: Two-dimensional and M-mode echocardiogram with Doppler and color Doppler. Other Information Quality : GoodRhythm : INDICATION Peripheral Edema Infection:Rule out subacute bacterial endocarditis POSITIVE BLOOD CULTURE M-Mode DIMENSIONS RVDd2.30 (2.1-3.2cm)Left Atrium (MM)4.26 (2.5-4.0cm) IVSd0.86 (0.7-1.1cm)Aortic Root3.32 (2.2-3.7cm) LVDd5.12 (4.0-5.6cm)Aortic Cusp Exc.2.34 (1.5-2.0cm) PWd1.05 (0.7-1.1cm)FS (%) 34 % LVDs3.36 (2.0-3.8cm)LVEF (%)63 (>50%) Mitral Valve MV E Oogkghct15.0cm/sMV A Zncfyqqk20.3cm/sE/A ratio1.2 TDI E/Lateral E'0.0E/Medial E'0.0 Tricuspid Valve TR Peak Qgexeevm593qw/sTR Peak Gr.[id number] LEFT VENTRICLE The left ventricle is normal size. There is normal left ventricular wall thickness. The left ventricular function is normal. The left ventricular ejection fraction is within the normal range. No regional wall motion abnormalities noted. Transmitral Doppler flow pattern is Grade II-pseudonormal filling dynamics. The left atrial pressure is mildly elevated. No left ventricle thrombus noted on this study. There is no ventricular septal defect visualized. There is no left ventricular aneurysm. There is no mass noted in the left ventricle. RIGHT VENTRICLE The right ventricle is normal size. There is normal right ventricular wall thickness. The right ventricular systolic function is normal. ATRIA The left atrium size is normal.LA vollume index is mod. increased The right atrium size is normal. The interatrial septum is intact with no evidence for an atrial septal defect. AORTIC VALVE The aortic valve is normal in structure and function. No aortic regurgitation is present. There is no aortic valvular stenosis. There is no aortic valvular vegetation. MITRAL VALVE The mitral valve is normal in structure and function. There is no evidence of mitral valve prolapse. There is no mitral valve stenosis. There is no mitral valve regurgitation noted. TRICUSPID VALVE The tricuspid valve is normal in structure and function. There is mild tricuspid regurgitation. Right ventricular systolic pressure is estimated at 30-40 mmHg. There is no tricuspid valve prolapse or vegetation. There is no tricuspid valve stenosis. PULMONIC VALVE The pulmonary valve is normal in structure and function. There is no pulmonic valvular regurgitation. There is no pulmonic valvular stenosis. GREAT VESSELS The aortic root is normal in size. The ascending aorta is normal in size. The pulmonary artery is normal. The IVC is normal in size and collapses >50% with inspiration. PERICARDIAL EFFUSION The pericardium appears normal. There is no pleural effusion. <Conclusion> The left ventricular function is normal. The left ventricular ejection fraction is within the normal range. No regional wall motion abnormalities noted. Transmitral Doppler flow pattern is Grade II-pseudonormal filling dynamics. The left atrial pressure is mildly elevated. The left atrium size is normal.LA vollume index is mod. increased
--- NOTE | 2017-04-04 12:28 | CP.PCM.PN ---
Subjective - Date & Time of Evaluation Date of Evaluation: 04/04/17 Time of Evaluation: 12:27 - Subjective Subjective: CHIEF COMPLAINTS TODAY : R. LEG PAIN/SWELLING ROS. HEENT : N. Resp : No cough, wheezing ,pleuritic CP ,or hemoptysis Cardio : No anginal CP, PND, orthopnea, palpitation GI : No abd.pain, n/v ,diarrhea or GI bleeding . 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 Musculoskel : No joint swelling , Derm : No rash Psych : Normal affect. Ext : R. LEG SWOLLEN PE. Pt. is alert awake in no distress. V.S As noted in the chart Head ,ear nose,throat and eyes : Normal. Neck : Supple with normal carotids. Lungs: Clear air entry. Heart : S1 & S2 normal with S4. No murmur. Abd : Soft non tender with normal bowel sounds. Neuro : Moves all ext. with no localized deficit. Ext : R. LEG SWOLLEN WITH SPREADING CELLULITIS DISCOLORATION Derm : No rashes or decubitus ulcer. LABS/RADIOLOGY: C/S GRAM -VE RODS SERRSTIA ASSESSMENT/PLAN : ID/VAS/POD INPUT NOTED LFT MILD ELEVATION CHECK ART. STUDIES Objective - Vital Signs/Intake and Output Vital Signs (last 24 hours): Temp Pulse Resp BP Pulse Ox 98.1 F 64 20 113/70 98 04/04/17 08:26 04/04/17 08:26 04/04/17 08:26 04/04/17 08:26 04/04/17 08:26 - Medications Medications: Current Medications Enoxaparin Sodium (Lovenox) 40 mg SC DAILY [facility] Last Admin: 04/04/17 12:01 Dose: 40 mg Aztreonam 1 gm/ Sodium (Chloride) 100 mls @ 100 mls/hr IVPB Q12H [facility] Last Admin: 04/04/17 11:13 Dose: 100 mls/hr Vancomycin/Sodium Chloride (Vancocin) 1 gm in 200 mls @ 133.333 mls/hr IVPB Q24H [facility] Stop: 04/07/17 20:01 Last Admin: 04/03/17 20:41 Dose: 133.333 mls/hr Oxycodone/Acetaminophen (Percocet 5/325 Mg Tab) 1 tab PO Q6H PRN PRN Reason: Pain, moderate (4-7) Stop: 04/04/17 19:49 Last Admin: 04/03/17 22:26 Dose: 1 tab - Labs Labs: 04/04/17 08:07 04/04/17 08:07
[2017-04-04] MEDS ORDERED: Potassium Chloride 20 mEq ER Tab PO ONE (15:00)
--- NOTE | 2017-04-04 15:52 | CP.PCM.PN ---
Subjective - Date & Time of Evaluation Date of Evaluation: 04/04/17 Time of Evaluation: 13:55 - Subjective Subjective: Patient seen bedside regarding RLE cellulitis and superficial ulcerations. He is seen resting comfortably in bed in [facility]. States improvement in condition since admission. Denies F/C/N/V/SOB. Objective - Vital Signs/Intake and Output Vital Signs (last 24 hours): Temp Pulse Resp BP Pulse Ox 98.1 F 64 20 113/70 98 04/04/17 08:26 04/04/17 08:26 04/04/17 08:26 04/04/17 08:26 04/04/17 08:26 Intake and Output: 04/04/17 04/04/17 06:59 18:59 Intake Total 650 Output Total 600 Balance 50 - Medications Medications: Current Medications Enoxaparin Sodium (Lovenox) 40 mg SC DAILY [facility] Last Admin: 04/04/17 12:01 Dose: 40 mg Aztreonam 1 gm/ Sodium (Chloride) 100 mls @ 100 mls/hr IVPB Q12H [facility] Last Admin: 04/04/17 11:13 Dose: 100 mls/hr Vancomycin/Sodium Chloride (Vancocin) 1 gm in 200 mls @ 133.333 mls/hr IVPB Q24H [facility] Stop: 04/07/17 20:01 Last Admin: 04/03/17 20:41 Dose: 133.333 mls/hr Oxycodone/Acetaminophen (Percocet 5/325 Mg Tab) 1 tab PO Q6H PRN PRN Reason: Pain, moderate (4-7) Stop: 04/04/17 19:49 Last Admin: 04/03/17 22:26 Dose: 1 tab - Labs Labs: 04/04/17 08:07 04/04/17 08:07 - Constitutional Appears: No Acute Distress - Extremities Exam Additional comments: Vasc: DP and PT pulses palpable b/l. Erythema noted to lower 1/2 of right leg circumfirentially. Edema noted to right leg. Mild increase in skin temperature to RLE wound. Neuro: Gross sensation diminished. Derm: Multiple superficial ulcerations noted to right leg circumfirentially. Weeping serosanguious drainage noted. Mild malodor noted, no purulence noted. Ortho: Pain on palpation to right lower extremity. - Neurological Exam Neurological Exam: Alert, Awake, Oriented x3 Assessment and Plan - Assessment and Plan (Free Text) Assessment: 71 year old male with cellulitis and ulcerations to RLE. Plan: Patient seen and evaluated at bedside. Charts, labs, vitals reviewed. Discussed with attending, Dr. Minor. Wound cleaned with saline/betadine and dressed with xeroform, 4x4 gauze, abd pads, and kerlix. Continue with IV abx as per ID. Podiatry will continue to follow while in house.
[2017-04-04] MEDS: Oxycodone/Acetaminophen 5/325 mg Tab PO PRN (17:13)
--- NOTE | 2017-04-04 18:35 | CP.PCM.PN ---
Subjective - Date & Time of Evaluation Date of Evaluation: 04/04/17 Time of Evaluation: 18:34 - Subjective Subjective: CHIEF COMPLAINTS TODAY : AFEBRIL C/O R. LEG PAIN/SWELLING seen by vascular surgery and appreciated. YANEZ HEENT : N. Resp : No cough, wheezing ,pleuritic CP ,or hemoptysis Cardio : No anginal CP, PND, orthopnea, palpitation GI : No abd.pain, n/v ,diarrhea or GI bleeding . DENTAL PATIENT COORDINATOR : No headache, vertigo, focal deficit. Musculoskel : No joint swelling , Derm : No rash Psych : Normal affect. Ext : R. LEG SWOLLEN /WARM WITH ULCERS PE. Pt. is alert awake in no distress. V.S As noted in the chart Head ,ear nose,throat and eyes : Normal. Neck : Supple with normal carotids. Lungs: Clear air entry. Heart : S1 & S2 normal with S4. No murmur. Abd : Soft non tender with normal bowel sounds. Neuro : Moves all ext. with no localized deficit. Ext : R. LEG SWOLLEN WITH SPREADING CELLULITIS DISCOLORATION ,+VE MALODOROUS DRAINAGE. Derm : No rashes or decubitus ulcer. LABS/RADIOLOGY: C/S RT LEG - SERRSTIA MARCESENS,BETA-HEMOLYTIC STREP GROUP b. BLOOD CULTURES NEGATIVE TO DATE. ASSESSMENT RT.LE CELLULITIS/INFECTED ULCERS R/O DVT VS VENOUS INSUFFICIENCY R/O PVD. CRI. HX .KIDNEY STONES /PLAN : CONTINUE iv AZACTAM 1 G EVERY 12 HOURLY 04/02/17. CONTINUE iv VANCOMYCIN 1 G EVERY 24 HOURLY. 04/01/17 LOCAL WOUND CARE PER PODIATRY VENOUS DUPLEX SCAN ORDERED ARTERIAL STUDIES CANCELED PER V SURGERY. WE'LL FOLLOW THREE-PHASE BONE SCAN ORDERED BY PMD. Objective - Vital Signs/Intake and Output Vital Signs (last 24 hours): Temp Pulse Resp BP Pulse Ox 98.1 F 84 20 112/58 L 100 04/04/17 15:00 04/04/17 15:00 04/04/17 15:00 04/04/17 15:00 04/04/17 15:00 Intake and Output: 04/04/17 04/04/17 06:59 18:59 Intake Total 650 Output Total 600 Balance 50 - Medications Medications: Current Medications Enoxaparin Sodium (Lovenox) 40 mg SC DAILY [facility] Last Admin: 04/04/17 12:01 Dose: 40 mg Aztreonam 1 gm/ Sodium (Chloride) 100 mls @ 100 mls/hr IVPB Q12H [facility] Last Admin: 04/04/17 11:13 Dose: 100 mls/hr Vancomycin/Sodium Chloride (Vancocin) 1 gm in 200 mls @ 133.333 mls/hr IVPB Q24H [facility] Stop: 04/07/17 20:01 Last Admin: 04/03/17 20:41 Dose: 133.333 mls/hr Oxycodone/Acetaminophen (Percocet 5/325 Mg Tab) 1 tab PO Q6H PRN PRN Reason: Pain, moderate (4-7) Stop: 04/04/17 19:49 Last Admin: 04/04/17 17:13 Dose: 1 tab - Labs Labs: 04/04/17 08:07 04/04/17 08:07
[2017-04-04] MEDS: Vancomycin 1 gm/NS 200 ml 1 GM/200 ML BAG IVPB SCH (21:28)
[2017-04-04] MEDS ORDERED: Oxycodone/Acetaminophen 5/325 mg Tab PO STA (23:10)
--- NOTE | 2017-04-05 08:01 | CP.PCM.PN ---
<Jude Taveras - Last Filed: 04/05/17 07:53> Subjective - Date & Time of Evaluation Date of Evaluation: 04/05/17 Time of Evaluation: 07:53 - Subjective Subjective: SURGERY NOTE FOR DR. FENG 71M seen and examined at bedside. Patient is comfortable and NAEON. Objective - Vital Signs/Intake and Output Vital Signs (last 24 hours): Temp Pulse Resp BP Pulse Ox 97.8 F 69 20 125/64 100 04/05/17 07:14 04/05/17 07:14 04/05/17 07:14 04/05/17 07:14 04/05/17 07:14 Intake and Output: 04/05/17 04/05/17 06:59 18:59 Intake Total 300 Output Total 650 Balance -350 - Medications Medications: Current Medications Enoxaparin Sodium (Lovenox) 40 mg SC DAILY [facility] Last Admin: 04/04/17 12:01 Dose: 40 mg Aztreonam 1 gm/ Sodium (Chloride) 100 mls @ 100 mls/hr IVPB Q12H [facility] Last Admin: 04/04/17 23:17 Dose: 100 mls/hr Vancomycin/Sodium Chloride (Vancocin) 1 gm in 200 mls @ 133.333 mls/hr IVPB Q24H [facility] Stop: 04/07/17 20:01 Last Admin: 04/04/17 21:28 Dose: 133.333 mls/hr - Labs Labs: 04/04/17 08:07 04/04/17 08:07 - Constitutional Appears: Non-toxic, No Acute Distress - Respiratory Exam Respiratory Exam: Clear to Ausculation Bilateral, NORMAL BREATHING PATTERN - Cardiovascular Exam Cardiovascular Exam: REGULAR RHYTHM, +S1, +S2 - Extremities Exam Additional comments: right leg swelling with skin changes and ulcers dressed with curlex - Neurological Exam Neurological Exam: Alert, Awake Assessment and Plan - Assessment and Plan (Free Text) Assessment: 71M with lower extremity pain, swelling and ulcers, likely 2/2 chronic venous insufficiency n DVT - f/u lower extremity vein mapping - wound care, elevate leg - Further recs discussed with Dr. Ping Taveras, PGY1 <Mark eFng - Last Filed: 04/05/17 14:30> Subjective - Subjective Subjective: Patient remains clinically stable. No systemic signs of infection. Right lower extremity looks modestly improved with less edema and erythema. Continue local wound care and compression with right leg elevation. Patient is scheduled for lower extremities venous Duplex today - will follow up on the result. Wound care involved. Patient is receiving antibiotic therapy. Objective - Vital Signs/Intake and Output Vital Signs (last 24 hours): Temp Pulse Resp BP Pulse Ox 97.8 F 69 20 125/64 100 04/05/17 07:14 04/05/17 07:14 04/05/17 07:14 04/05/17 07:14 04/05/17 07:14 Intake and Output: 04/05/17 04/05/17 06:59 18:59 Intake Total 300 Output Total 650 Balance -350 - Medications Medications: Current Medications Enoxaparin Sodium (Lovenox) 40 mg SC DAILY [facility] Last Admin: 04/05/17 10:51 Dose: 40 mg Aztreonam 1 gm/ Sodium (Chloride) 100 mls @ 100 mls/hr IVPB Q12H [facility] Last Admin: 04/05/17 10:50 Dose: 100 mls/hr Vancomycin/Sodium Chloride (Vancocin) 1 gm in 200 mls @ 133.333 mls/hr IVPB Q24H [facility] Stop: 04/07/17 20:01 Last Admin: 04/04/17 21:28 Dose: 133.333 mls/hr - Labs Labs: 04/05/17 08:37 04/05/17 08:37
[2017-04-05 08:48] LABS: BASO # 0.1 K/uL (0.0-0.2); BASO % 1.2 % (0.0-2.0); EOS # 0.3 K/uL (0.0-0.7); EOS % 4.1 % (0.0-4.0); HEMATOCRIT 38.7 % (35.0-51.0); LYMPH # 1.1 K/uL (1.0-4.3); LYMPH % 14.3 % (20.0-40.0); MEAN CELL VOLUME 94.3 fL (80.0-94.0); MEAN CORPUSCULAR HEMOGLOBIN 31.6 pg (27.0-31.0); MEAN CORPUSCULAR HGB CONC 33.5 g/dL (33.0-37.0); MONO # 0.6 K/uL (0.0-0.8); MONO % 6.9 % (0.0-10.0); NRBC % 0.1 % (0.0-2.0); RED CELL DISTRIBUTION WIDTH 13.5 % (11.5-14.5)
[2017-04-05 08:57] LABS: CHLORIDE 101 mmol/L (98-107)
[2017-04-05 08:58] LABS: POTASSIUM 4.7 mmol/L (3.6-5.2); SODIUM 136 mmol/L (132-148)
[2017-04-05 09:00] LABS: BILIRUBIN,TOTAL 0.6 mg/dL (0.2-1.3); CARBON DIOXIDE 22 mmol/L (22-30); GFR AFRICAN-AMERICAN > 60
[2017-04-05 09:01] LABS: ALB/GLOB RATIO 1.2 (1.0-2.1); ALKALINE PHOSPHATASE 74 U/L (38-126); ALT/SGPT 27 U/L (21-72); AST/SGOT 18 U/L (17-59); BLOOD UREA NITROGEN 16 mg/dL (9-20); CALCIUM 8.7 mg/dl (8.6-10.4); GLUCOSE,RANDOM 103 mg/dL (75-110); TOTAL PROTEIN 6.7 g/dL (6.3-8.3)
[2017-04-05] MEDS: Aztreonam 1 GM in Sodium Chloride 0.9% 100 ML IVPB SCH ×2 (10:50→22:44)
[2017-04-05] MEDS: Enoxaparin 40 mg Syringe SC SCH (10:51)
--- NOTE | 2017-04-05 12:43 | CP.PCM.PN ---
<David Ordaz - Last Filed: 04/05/17 12:45> Subjective - Date & Time of Evaluation Date of Evaluation: 04/05/17 Time of Evaluation: 11:30 - Subjective Subjective: Patient seen bedside regarding RLE cellulitis and superficial ulcerations. He is seen resting comfortably in bed in [facility]. States improvement in condition since admission. Denies F/C/N/V/SOB. Objective - Vital Signs/Intake and Output Vital Signs (last 24 hours): Temp Pulse Resp BP Pulse Ox 97.8 F 69 20 125/64 100 04/05/17 07:14 04/05/17 07:14 04/05/17 07:14 04/05/17 07:14 04/05/17 07:14 Intake and Output: 04/05/17 04/05/17 06:59 18:59 Intake Total 300 Output Total 650 Balance -350 - Medications Medications: Current Medications Enoxaparin Sodium (Lovenox) 40 mg SC DAILY [facility] Last Admin: 04/05/17 10:51 Dose: 40 mg Aztreonam 1 gm/ Sodium (Chloride) 100 mls @ 100 mls/hr IVPB Q12H [facility] Last Admin: 04/05/17 10:50 Dose: 100 mls/hr Vancomycin/Sodium Chloride (Vancocin) 1 gm in 200 mls @ 133.333 mls/hr IVPB Q24H [facility] Stop: 04/07/17 20:01 Last Admin: 04/04/17 21:28 Dose: 133.333 mls/hr - Labs Labs: 04/05/17 08:37 04/05/17 08:37 - Constitutional Appears: No Acute Distress - Extremities Exam Additional comments: Vasc: DP and PT pulses palpable b/l. Erythema noted to lower 1/2 of right leg circumfirentially with moderate edema and mild calor. Neuro: Gross sensation diminished. Derm: Multiple superficial ulcerations noted to right leg circumfirentially. Weeping serosanguious drainage noted. Mild malodor noted, no purulence noted. Ortho: Pain on palpation to right lower extremity. - Neurological Exam Neurological Exam: Alert, Awake, Oriented x3 Assessment and Plan - Assessment and Plan (Free Text) Assessment: 71 year old male with resolving cellulitis and ulcerations to RLE. Plan: Patient seen and evaluated at bedside with Dr. Minor. Charts, labs, vitals reviewed. Wound cleaned with saline/betadine and dressed with xeroform, 4x4 gauze, abd pads, and kerlix. Continue with abx as per ID. Stable from podiatry standpoint. To continue dressing RLE with DSD, [facility] boot as outpt in rehab facility. Podiatry will continue to follow while in house. <Jassi Minor D - Last Filed: 04/05/17 17:25> Objective - Vital Signs/Intake and Output Vital Signs (last 24 hours): Temp Pulse Resp BP Pulse Ox 97.8 F 69 20 125/64 100 04/05/17 07:14 04/05/17 07:14 04/05/17 07:14 04/05/17 07:14 04/05/17 07:14 Intake and Output: 04/05/17 04/05/17 06:59 18:59 Intake Total 300 Output Total 650 Balance -350 - Medications Medications: Current Medications Enoxaparin Sodium (Lovenox) 40 mg SC DAILY [facility] Last Admin: 04/05/17 10:51 Dose: 40 mg Aztreonam 1 gm/ Sodium (Chloride) 100 mls @ 100 mls/hr IVPB Q12H [facility] Last Admin: 04/05/17 10:50 Dose: 100 mls/hr Vancomycin/Sodium Chloride (Vancocin) 1 gm in 200 mls @ 133.333 mls/hr IVPB Q24H [facility] Stop: 04/07/17 20:01 Last Admin: 04/04/17 21:28 Dose: 133.333 mls/hr Oxycodone/Acetaminophen (Percocet 5/325 Mg Tab) 1 tab PO Q6H PRN PRN Reason: Pain, severe (8-10) Stop: 04/08/17 16:33 - Labs Labs: 04/05/17 08:37 04/05/17 08:37 Attending/Attestation - Attestation I have personally seen and examined this patient.: Yes I have fully participated in the care of the patient.: Yes I have reviewed all pertinent clinical information, including history, physical exam and plan: Yes Notes (Text): 04/05/17 17:24 Pt seen with resident at bedside. Agree with tx plan. Will cont to follow while pt inhouse.
--- NOTE | 2017-04-05 13:05 | CP.PCM.PN ---
Subjective - Date & Time of Evaluation Date of Evaluation: 04/05/17 Time of Evaluation: 13:04 - Subjective Subjective: CHIEF COMPLAINTS TODAY : R. LEG PAIN/SWELLING MUCH IMPROVED AFTER IV AB NO EVIDENCE OF DM ROS. HEENT : N. Resp : No cough, wheezing ,pleuritic CP ,or hemoptysis Cardio : No anginal CP, PND, orthopnea, palpitation GI : No abd.pain, n/v ,diarrhea or GI bleeding . RECORDS MANAGEMENT ANALYST : No headache, vertigo, focal deficit. Musculoskel : No joint swelling , Derm : No rash Psych : Normal affect. Ext : R. LEG SWOLLEN PE. Pt. is alert awake in no distress. V.S As noted in the chart Head ,ear nose,throat and eyes : Normal. Neck : Supple with normal carotids. Lungs: Clear air entry. Heart : S1 & S2 normal with S4. No murmur. Abd : Soft non tender with normal bowel sounds. Neuro : Moves all ext. with no localized deficit. Ext : R. LEG SWOLLEN WITH SPREADING CELLULITIS DISCOLORATION Derm : No rashes or decubitus ulcer. LABS/RADIOLOGY: C/S GRAM -VE RODS SERRSTIA ASSESSMENT/PLAN : VASCULAR F/U IV AB Objective - Vital Signs/Intake and Output Vital Signs (last 24 hours): Temp Pulse Resp BP Pulse Ox 97.8 F 69 20 125/64 100 04/05/17 07:14 04/05/17 07:14 04/05/17 07:14 04/05/17 07:14 04/05/17 07:14 Intake and Output: 04/05/17 04/05/17 11:59 23:59 Intake Total 300 Output Total 650 Balance -350 - Medications Medications: Current Medications Enoxaparin Sodium (Lovenox) 40 mg SC DAILY [facility] Last Admin: 04/05/17 10:51 Dose: 40 mg Aztreonam 1 gm/ Sodium (Chloride) 100 mls @ 100 mls/hr IVPB Q12H [facility] Last Admin: 04/05/17 10:50 Dose: 100 mls/hr Vancomycin/Sodium Chloride (Vancocin) 1 gm in 200 mls @ 133.333 mls/hr IVPB Q24H [facility] Stop: 04/07/17 20:01 Last Admin: 04/04/17 21:28 Dose: 133.333 mls/hr - Labs Labs: 04/05/17 08:37 04/05/17 08:37
--- NOTE | 2017-04-05 16:33 | CP.PCM.PN ---
Subjective - Date & Time of Evaluation Date of Evaluation: 04/05/17 Time of Evaluation: 16:32 - Subjective Subjective: CHIEF COMPLAINTS TODAY : AFEBRILE R. LEG PAIN/SWELLING MUCH IMPROVED AWAITING DUPLEX VENOUS SCAN ROS. HEENT : N. Resp : No cough, wheezing ,pleuritic CP ,or hemoptysis Cardio : No anginal CP, PND, orthopnea, palpitation GI : No abd.pain, n/v ,diarrhea or GI bleeding . DISPATCHER ELECTRIC POWER : No headache, vertigo, focal deficit. Musculoskel : No joint swelling , Derm : No rash Psych : Normal affect. Ext : R. LEG SWOLLEN /WARM WITH ULCERS CIRCUMFERENTIALLY. PE. Pt. is alert awake in no distress. V.S As noted in the chart Head ,ear nose,throat and eyes : Normal. Neck : Supple with normal carotids. Lungs: Clear air entry. Heart : S1 & S2 normal with S4. No murmur. Abd : Soft non tender with normal bowel sounds. Neuro : Moves all ext. with no localized deficit. Ext : Multiple superficial ulcerations noted to right leg circumfirentially. Weeping serosanguious drainage noted. Mild malodor DRAINAGE +VE Derm : No rashes or decubitus ulcer. LABS/RADIOLOGY: VANCO TROUGH LEVEL -12.8- OK RENAL FUNCTION OKAY. C/S RT LEG - EVELYNE TRIVEDI,BETA-HEMOLYTIC STREP GROUP b. BLOOD CULTURES NEGATIVE TO DATE. ASSESSMENT RT.LE CELLULITIS/INFECTED ULCERS R/O DVT VS VENOUS INSUFFICIENCY CRI. HX .KIDNEY STONES /PLAN : CONTINUE iv AZACTAM 1 G EVERY 12 HOURLY 04/02/17. CONTINUE iv VANCOMYCIN 1 G EVERY 24 HOURLY. 04/01/17 LOCAL WOUND CARE PER PODIATRY VENOUS DUPLEX SCAN -P THREE-PHASE BONE SCAN -REPORT PENDING. pATIENT FOR picc LINE/AND iv ANTIBIOTICS. Objective - Vital Signs/Intake and Output Vital Signs (last 24 hours): Temp Pulse Resp BP Pulse Ox 97.8 F 69 20 125/64 100 04/05/17 07:14 04/05/17 07:14 04/05/17 07:14 04/05/17 07:14 04/05/17 07:14 Intake and Output: 04/05/17 04/05/17 06:59 18:59 Intake Total 300 Output Total 650 Balance -350 - Medications Medications: Current Medications Enoxaparin Sodium (Lovenox) 40 mg SC DAILY [facility] Last Admin: 04/05/17 10:51 Dose: 40 mg Aztreonam 1 gm/ Sodium (Chloride) 100 mls @ 100 mls/hr IVPB Q12H [facility] Last Admin: 04/05/17 10:50 Dose: 100 mls/hr Vancomycin/Sodium Chloride (Vancocin) 1 gm in 200 mls @ 133.333 mls/hr IVPB Q24H [facility] Stop: 04/07/17 20:01 Last Admin: 04/04/17 21:28 Dose: 133.333 mls/hr - Labs Labs: 04/05/17 08:37 04/05/17 08:37 Assessment and Plan (1) Cellulitis of right leg Status: Acute (2) Infected skin ulcer limited to breakdown of skin Status: Acute
[2017-04-05] MEDS: Oxycodone/Acetaminophen 5/325 mg Tab PO PRN (20:04)
[2017-04-05] MEDS: Vancomycin 1 gm/NS 200 ml 1 GM/200 ML BAG IVPB SCH (20:42)
[2017-04-06 09:02] LABS: BASO # 0.1 K/uL (0.0-0.2); BASO % 1.2 % (0.0-2.0); EOS # 0.3 K/uL (0.0-0.7); EOS % 3.7 % (0.0-4.0); HEMATOCRIT 37.2 % (35.0-51.0); LYMPH # 1.1 K/uL (1.0-4.3); LYMPH % 15.4 % (20.0-40.0); MEAN CELL VOLUME 93.9 fL (80.0-94.0); MEAN CORPUSCULAR HEMOGLOBIN 31.4 pg (27.0-31.0); MEAN CORPUSCULAR HGB CONC 33.4 g/dL (33.0-37.0); MEAN PLATELET VOLUME 9.2 fL (7.2-11.7); MONO # 0.4 K/uL (0.0-0.8); MONO % 5.7 % (0.0-10.0); RED CELL DISTRIBUTION WIDTH 13.5 % (11.5-14.5); WHITE BLOOD COUNT 7.3 K/uL (4.8-10.8)
[2017-04-06 09:20] LABS: CHLORIDE 102 mmol/L (98-107)
[2017-04-06 09:21] LABS: SODIUM 137 mmol/L (132-148)
[2017-04-06 09:23] LABS: ALB/GLOB RATIO 1.1 (1.0-2.1); AST/SGOT 19 U/L (17-59); BILIRUBIN,TOTAL 0.5 mg/dL (0.2-1.3); BLOOD UREA NITROGEN 15 mg/dL (9-20); CARBON DIOXIDE 25 mmol/L (22-30); GFR AFRICAN-AMERICAN > 60; TOTAL PROTEIN 6.4 g/dL (6.3-8.3)
[2017-04-06 09:24] LABS: ALKALINE PHOSPHATASE 75 U/L (38-126); ALT/SGPT 24 U/L (21-72); CALCIUM 8.5 mg/dl (8.6-10.4); GLUCOSE,RANDOM 156 mg/dL (75-110)
[2017-04-06] MEDS: Aztreonam 1 GM in Sodium Chloride 0.9% 100 ML IVPB SCH (10:26)
--- NOTE | 2017-04-06 11:21 | NM ---
PROCEDURE: Whole Body Bone Scan HISTORY: R. LEG INFECTION COMPARISON: 04/02/2017 right ankle radiographs TECHNIQUE: Following administration of 23.9 miCu of Tc MDP multiplanar whole body images were obtained. FINDINGS: Flow component: Increased flow to the right lower extremity from the knee to the ankle and foot. Visualize right lower extremity is edematous compared to the left. No focal osseous abnormalities. Blood pool component: Increased accumulation of radionuclide soft tissues right lower extremity. Delayed images at 3:00: Retention of radionuclide in the soft tissues without significant osseous abnormality. IMPRESSION: Findings consistent with severe cellulitis right lower extremity without evidence of acute osteomyelitis.
--- NOTE | 2017-04-06 11:26 | CP.PCM.PN ---
Subjective - Date & Time of Evaluation Date of Evaluation: 04/06/17 Time of Evaluation: 11:00 - Subjective Subjective: Podiatry Patient seen along with resident Dr Angeli Ordaz. Right lower leg was redressed. Edema is resolving but still significant. Patient to have further vascular study to rule out thrombosis. He is on IV antibiotics for cellulitis. To continue local care for now. Objective - Vital Signs/Intake and Output Vital Signs (last 24 hours): Temp Pulse Resp BP Pulse Ox 97.0 F L 70 20 132/70 97 04/06/17 08:23 04/06/17 08:23 04/06/17 08:23 04/06/17 08:23 04/06/17 08:23 Intake and Output: 04/06/17 04/06/17 06:59 18:59 Intake Total 590 Output Total 1050 Balance -460 - Medications Medications: Current Medications Enoxaparin Sodium (Lovenox) 40 mg SC DAILY [facility] Last Admin: 04/05/17 10:51 Dose: 40 mg Aztreonam 1 gm/ Sodium (Chloride) 100 mls @ 100 mls/hr IVPB Q12H [facility] Last Admin: 04/06/17 10:26 Dose: 100 mls/hr Vancomycin/Sodium Chloride (Vancocin) 1 gm in 200 mls @ 133.333 mls/hr IVPB Q24H [facility] Stop: 04/07/17 20:01 Last Admin: 04/05/17 20:42 Dose: 133.333 mls/hr Oxycodone/Acetaminophen (Percocet 5/325 Mg Tab) 1 tab PO Q6H PRN PRN Reason: Pain, severe (8-10) Stop: 04/08/17 16:33 Last Admin: 04/05/17 20:04 Dose: 1 tab - Labs Labs: 04/06/17 08:47 04/06/17 08:47
--- NOTE | 2017-04-06 11:44 | CP.PCM.PN ---
Subjective - Date & Time of Evaluation Date of Evaluation: 04/06/17 Time of Evaluation: 11:44 - Subjective Subjective: CHIEF COMPLAINTS TODAY : AFEBRILE R. LEG PAIN/SWELLING MUCH IMPROVED S/P RT LE UNNA BOOT 04/06/17 AWAITING DUPLEX VENOUS SCAN THREE-PHASE BONE SCAN -SEVERE CELLULITIS -VE FOR OSTEO. ROS. HEENT : N. Resp : No cough, wheezing ,pleuritic CP ,or hemoptysis Cardio : No anginal CP, PND, orthopnea, palpitation GI : No abd.pain, n/v ,diarrhea or GI bleeding . RUSSIAN RUBBER : No headache, vertigo, focal deficit. Musculoskel : No joint swelling , Derm : No rash Psych : Normal affect. Ext : R. LEG LESS SWOLLEN. +VE RT UNNABOOT PE. Pt. is alert awake in no distress. V.S As noted in the chart Head ,ear nose,throat and eyes : Normal. Neck : Supple with normal carotids. Lungs: Clear air entry. Heart : S1 & S2 normal with S4. No murmur. Abd : Soft non tender with normal bowel sounds. Neuro : Moves all ext. with no localized deficit. Ext : Multiple superficial ulcerations noted to right leg circumfirentially. Weeping serosanguious drainage noted. Mild malodor DRAINAGE +VE (NOW WITH UNNA BOOT ) Derm : No rashes or decubitus ulcer. LABS/RADIOLOGY: VANCO TROUGH LEVEL -12.8- OK RENAL FUNCTION OKAY. C/S RT LEG - SERRSTIA MARCESENS,BETA-HEMOLYTIC STREP GROUP B. BLOOD CULTURES NEGATIVE TO DATE. ASSESSMENT RT.LE CELLULITIS/INFECTED ULCERS R/O DVT VS VENOUS INSUFFICIENCY CRI.-- IMPROVED HX .KIDNEY STONES /PLAN : CONTINUE iv AZACTAM 1 G EVERY 12 HOURLY 04/02/17. X 2 WKS CONTINUE iv VANCOMYCIN 1 G EVERY 24 HOURLY. 04/01/17 X 2 WKS F/U CBC W DIFF,BMP AND LFTS WKLY [id number] VANC TROUGH LEVEL WKLY X 2 WEEKS AND MAINTAIN BETWEEN 10- 20. LOCAL WOUND CARE PER PODIATRY VENOUS DUPLEX SCAN -P THREE-PHASE BONE SCAN -SEVERE CELLULITIS -VE FOR OSTEO. pATIENT S/P picc LINE/AND iv ANTIBIOTICS. FOR AGUS TODAY AT 7.00PM Objective - Vital Signs/Intake and Output Vital Signs (last 24 hours): Temp Pulse Resp BP Pulse Ox 97.0 F L 70 20 132/70 97 04/06/17 08:23 04/06/17 08:23 04/06/17 08:23 04/06/17 08:23 04/06/17 08:23 Intake and Output: 04/06/17 04/06/17 06:59 18:59 Intake Total 590 Output Total 1050 Balance -460 - Medications Medications: Current Medications Enoxaparin Sodium (Lovenox) 40 mg SC DAILY [facility] Last Admin: 04/05/17 10:51 Dose: 40 mg Aztreonam 1 gm/ Sodium (Chloride) 100 mls @ 100 mls/hr IVPB Q12H [facility] Last Admin: 04/06/17 10:26 Dose: 100 mls/hr Vancomycin/Sodium Chloride (Vancocin) 1 gm in 200 mls @ 133.333 mls/hr IVPB Q24H [facility] Stop: 04/07/17 20:01 Last Admin: 04/05/17 20:42 Dose: 133.333 mls/hr Oxycodone/Acetaminophen (Percocet 5/325 Mg Tab) 1 tab PO Q6H PRN PRN Reason: Pain, severe (8-10) Stop: 04/08/17 16:33 Last Admin: 04/05/17 20:04 Dose: 1 tab - Labs Labs: 04/06/17 08:47 04/06/17 08:47 Assessment and Plan (1) Cellulitis of right leg Status: Acute (2) Infected skin ulcer limited to breakdown of skin Status: Acute
--- NOTE | 2017-04-06 12:54 | RAD ---
PROCEDURE: CHEST RADIOGRAPH, 1 VIEW HISTORY: verify right PICC COMPARISON: 09/17/2014 FINDINGS: LUNGS: Minimal linear scar/ atelectasis at both lung bases. No infiltrate. PLEURA: No pneumothorax or pleural fluid seen. CARDIOVASCULAR: Normal heart size. Right PICC catheter terminates in the region of the junction of the superior vena cava and brachiocephalic vein. OSSEOUS STRUCTURES: No significant abnormalities. VISUALIZED UPPER ABDOMEN: Normal. OTHER FINDINGS: None. IMPRESSION: Right PICC catheter. Termination in the region of the junction of the superior vena cava and brachiocephalic vein.
--- NOTE | 2017-04-06 13:13 | CP.PCM.PN ---
Subjective - Date & Time of Evaluation Date of Evaluation: 04/06/17 Time of Evaluation: 13:12 - Subjective Subjective: CHIEF COMPLAINTS TODAY : R. LEG PAIN/SWELLING MUCH IMPROVED AFTER IV AB NO EVIDENCE OF DM ROS. HEENT : N. Resp : No cough, wheezing ,pleuritic CP ,or hemoptysis Cardio : No anginal CP, PND, orthopnea, palpitation GI : No abd.pain, n/v ,diarrhea or GI bleeding . CAFETERIA COOK : No headache, vertigo, focal deficit. Musculoskel : No joint swelling , Derm : No rash Psych : Normal affect. Ext : R. LEG SWOLLEN PE. Pt. is alert awake in no distress. V.S As noted in the chart Head ,ear nose,throat and eyes : Normal. Neck : Supple with normal carotids. Lungs: Clear air entry. Heart : S1 & S2 normal with S4. No murmur. Abd : Soft non tender with normal bowel sounds. Neuro : Moves all ext. with no localized deficit. Ext : R. LEG SWOLLEN WITH SPREADING CELLULITIS DISCOLORATION Derm : No rashes or decubitus ulcer. LABS/RADIOLOGY: C/S GRAM -VE RODS SERRSTIA ASSESSMENT/PLAN : VASCULAR F/U IV AB Objective - Vital Signs/Intake and Output Vital Signs (last 24 hours): Temp Pulse Resp BP Pulse Ox 97.0 F L 70 20 132/70 97 04/06/17 08:23 04/06/17 08:23 04/06/17 08:23 04/06/17 08:23 04/06/17 08:23 Intake and Output: 04/06/17 04/06/17 11:59 23:59 Intake Total 240 Output Total 500 Balance -260 - Medications Medications: Current Medications Enoxaparin Sodium (Lovenox) 40 mg SC DAILY [facility] Last Admin: 04/05/17 10:51 Dose: 40 mg Aztreonam 1 gm/ Sodium (Chloride) 100 mls @ 100 mls/hr IVPB Q12H [facility] Last Admin: 04/06/17 10:26 Dose: 100 mls/hr Vancomycin/Sodium Chloride (Vancocin) 1 gm in 200 mls @ 133.333 mls/hr IVPB Q24H [facility] Stop: 04/07/17 20:01 Last Admin: 04/05/17 20:42 Dose: 133.333 mls/hr Oxycodone/Acetaminophen (Percocet 5/325 Mg Tab) 1 tab PO Q6H PRN PRN Reason: Pain, severe (8-10) Stop: 04/08/17 16:33 Last Admin: 04/05/17 20:04 Dose: 1 tab - Labs Labs: 04/06/17 08:47 04/06/17 08:47
--- NOTE | 2017-04-06 13:42 | RAD ---
HISTORY: repeat x-ray oblique for PICC tip verification COMPARISON: 04/06/2017 at 12:02 p.m. FINDINGS: LUNGS: No active pulmonary disease. PLEURA: No significant pleural effusion identified, no pneumothorax apparent. CARDIOVASCULAR: One repeat examination, PICC catheter appears to terminate in the superior vena cava. OSSEOUS STRUCTURES: No significant abnormalities. VISUALIZED UPPER ABDOMEN: Normal. OTHER FINDINGS: None. IMPRESSION: PICC catheter terminates in superior vena cava.
[2017-04-06] MEDS: Enoxaparin 40 mg Syringe SC SCH (13:58)
--- NOTE | 2017-04-06 15:19 | CP.PCM.PN ---
Subjective - Date & Time of Evaluation Date of Evaluation: 04/06/17 Time of Evaluation: 15:12 - Subjective Subjective: Right lower extremity overall feels better. Patient denies significant pain in his right leg. Objective - Vital Signs/Intake and Output Vital Signs (last 24 hours): Temp Pulse Resp BP Pulse Ox 97.0 F L 70 20 132/70 97 04/06/17 08:23 04/06/17 08:23 04/06/17 08:23 04/06/17 08:23 04/06/17 08:23 Intake and Output: 04/06/17 04/06/17 06:59 18:59 Intake Total 590 Output Total 1050 Balance -460 - Medications Medications: Current Medications Enoxaparin Sodium (Lovenox) 40 mg SC DAILY [facility] Last Admin: 04/06/17 13:58 Dose: 40 mg Aztreonam 1 gm/ Sodium (Chloride) 100 mls @ 100 mls/hr IVPB Q12H [facility] Last Admin: 04/06/17 10:26 Dose: 100 mls/hr Vancomycin/Sodium Chloride (Vancocin) 1 gm in 200 mls @ 133.333 mls/hr IVPB Q24H [facility] Stop: 04/07/17 20:01 Last Admin: 04/05/17 20:42 Dose: 133.333 mls/hr Oxycodone/Acetaminophen (Percocet 5/325 Mg Tab) 1 tab PO Q6H PRN PRN Reason: Pain, severe (8-10) Stop: 04/08/17 16:33 Last Admin: 04/05/17 20:04 Dose: 1 tab - Labs Labs: 04/06/17 08:47 04/06/17 08:47 - Constitutional Appears: Non-toxic, No Acute Distress - Head Exam Head Exam: NORMAL INSPECTION - Eye Exam Eye Exam: Normal appearance, PERRL Pupil Exam: PERRL - ENT Exam ENT Exam: Normal Exam - Neck Exam Neck Exam: Normal Inspection - Respiratory Exam Respiratory Exam: Clear to Ausculation Bilateral, NORMAL BREATHING PATTERN. absent: Respiratory Distress - Cardiovascular Exam Cardiovascular Exam: REGULAR RHYTHM, RRR. absent: JVD - GI/Abdominal Exam GI & Abdominal Exam: Soft. absent: Guarding, Rigid, Tenderness, Rebound - Extremities Exam Extremities Exam: Normal Capillary Refill, Normal Inspection Additional comments: right leg with gaiter area ulcer - less discharge. Overall, swelling, cellulitis and erythema of the right lower extremity are improved. - Neurological Exam Neurological Exam: Alert, Awake, Oriented x3 - Psychiatric Exam Psychiatric exam: Normal Affect, Normal Mood - Skin Additional comments: right lower extremity skin as described Assessment and Plan - Assessment and Plan (Free Text) Assessment: Right lower extremity is improving clinically with IV antibiotics, leg elevation and compression. UNNA boot was applied today - change in 3-5 days. Venous US was done - report pending. Plan: Continue antibiotic treatment. Continue compression therapy with UNNA boot and leg elevation. Patient might be discharged to rehab facility today - continue wound care and UNNA boot therapy at rehab facility. I will see patient as an outpatient.
[2017-04-06] MEDS: Oxycodone/Acetaminophen 5/325 mg Tab PO PRN (16:20)
[2017-04-06 16:47] VITALS: BP 147/63; PULSE 60; TEMP 97.6; O2SAT 99
--- NOTE | 2017-04-06 18:13 | CP.PCM.PN ---
Subjective - Date & Time of Evaluation Date of Evaluation: 04/06/17 Time of Evaluation: 11:00 - Subjective Subjective: Alert, awake, no distress. Objective - Vital Signs/Intake and Output Vital Signs (last 24 hours): Temp Pulse Resp BP Pulse Ox 97.6 F 60 20 147/63 99 04/06/17 16:00 04/06/17 16:00 04/06/17 16:00 04/06/17 16:00 04/06/17 16:00 Intake and Output: 04/06/17 04/06/17 06:59 18:59 Intake Total 590 450 Output Total 1050 Balance -460 450 - Medications Medications: Current Medications Enoxaparin Sodium (Lovenox) 40 mg SC DAILY [facility] Last Admin: 04/06/17 13:58 Dose: 40 mg Aztreonam 1 gm/ Sodium (Chloride) 100 mls @ 100 mls/hr IVPB Q12H [facility] Last Admin: 04/06/17 10:26 Dose: 100 mls/hr Vancomycin/Sodium Chloride (Vancocin) 1 gm in 200 mls @ 133.333 mls/hr IVPB Q24H [facility] Stop: 04/07/17 20:01 Last Admin: 04/05/17 20:42 Dose: 133.333 mls/hr Oxycodone/Acetaminophen (Percocet 5/325 Mg Tab) 1 tab PO Q6H PRN PRN Reason: Pain, severe (8-10) Stop: 04/08/17 16:33 Last Admin: 04/06/17 16:20 Dose: 1 tab - Labs Labs: 04/06/17 08:47 04/06/17 08:47 Assessment and Plan - Assessment and Plan (Free Text) Assessment: Patient is seen and examined. Alert, improving right leg cellulitis. Bone scan negative for osteo and venous doppler negative DVT. D/W DR Patel, plan to discharge to rehab for 2 weeks of iv antibiotics via PICC line. Patient agreed with the plan. Unna boots to be changed every 3-5 days.
[2017-04-06] MEDS: Vancomycin 1 gm/NS 200 ml 1 GM/200 ML BAG IVPB SCH (19:12)
--- NOTE | 2017-04-07 10:27 | VASCLAB ---
PROCEDURE: Right Lower Extremity Venous Duplex Exam. HISTORY: Right leg swelling , r/o DVT PRIORS: None. TECHNIQUE: Right common femoral, femoral, popliteal and posterior tibial, peroneal and great saphenous veins were evaluated. Flow was assessed with color Doppler, compressibility, assessment of phasic flow and augmentation response. Report prepared by AGGIE Pratt FINDINGS: RIGHT: 1. Common Femoral Vein: 1.1. Compressibility - Fully compressible: Thrombus - None: Flow - Phasic: Augmentation -Normal: Reflux - None. 2. Femoral Vein: (proximal and mid views only) 2.1. Compressibility - Fully compressible: Thrombus - None: Flow - Phasic: Augmentation -Normal: Reflux - None. 3. Popliteal Vein: 3.1. Compressibility - Fully compressible: Thrombus - None: Flow - Phasic: Augmentation -Normal: Reflux - None. 4. Posterior Tibial Vein: 4.1. Compressibility - Fully compressible: Thrombus - None: Flow - Phasic: Augmentation -Normal: Reflux - None. 5. Peroneal Vein: 5.1. Unable to visualize 6. Great Saphenous Vein: 6.1. Compressibility - Fully compressible: Thrombus -None: Flow - Phasic: Augmentation - Normal: Reflux - None. OTHER FINDINGS: IMPRESSION: No evidence of deep or superficial vein thrombosis of the right lower extremity, for those clearly imaged veins. Distal femoral and peroneal veins could not be imaged, due to swelling. Normal venous flow noted in the left common femoral vein.
== END 2017-04-06 21:00 | DRG 603 ==
LOC: C.ER 15:53 → C.9E 18:58 → C.3T 19:40
PROVIDERS: ADMIT Internal Medicine Cardiovascular Disease; ATTEND Internal Medicine Cardiovascular Disease
DX: L03.115 Cellulitis of right lower limb (principal); L97.811 Non-pressure chronic ulcer of other part of right lower leg limited to breakdown of skin; B96.89 Other specified bacterial agents as the cause of diseases classified elsewhere; B95.1 Streptococcus, group B, as the cause of diseases classified elsewhere; I87.2 Venous insufficiency (chronic) (peripheral); N18.9 Chronic kidney disease, unspecified; M19.049 Primary osteoarthritis, unspecified hand; H40.9 Unspecified glaucoma; F17.210 Nicotine dependence, cigarettes, uncomplicated; Z86.010 Personal history of colon polyps; Z87.442 Personal history of urinary calculi; Z91.19 Patient's noncompliance with other medical treatment and regimen; Z90.49 Acquired absence of other specified parts of digestive tract

== ENCOUNTER 2017-08-10 04:47 | Inpatient (IN) | payer MEDICARE ==
[2017-08-10 04:49] VITALS: BMI 37.5
[2017-08-10] MEDS ORDERED: Iohexol 240 (50 ml) PO STA (05:27)
[2017-08-10] MEDS ORDERED: Sodium Chloride 0.9% 1,000 ML IV ONE ×4 (05:27→20:15)
--- NOTE | 2017-08-10 05:51 | C.PDOC ---
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 Patient notes he has chronic bilateral lower leg drainage and discharge. Denies fever or chills. ( Jody Vasquez) History Per: Patient History/Exam Limitations: no limitations Onset/Duration Of Symptoms: Days Current Symptoms Are (Timing): Still Present Location Of Pain/Discomfort: Diffuse Radiation Of Pain To:: None Quality Of Discomfort: Unable To Describe Associated Symptoms: Vomiting, Constipation. denies: Fever, Chills Exacerbating Factors: None Alleviating Factors: None Recent travel outside of the [place]: No <Jody Vasquez - Last Filed: 08/10/17 08:04> <Heather Foreman - Last Filed: 08/10/17 19:40> Time Seen by Provider: 08/10/17 05:09 Chief Complaint (Nursing): Abdominal Pain Past Medical History Reviewed: Historical Data, Nursing Documentation, Vital Signs - Medical History PMH: Arthritis (FINGERS), Colonic Polyps (large removed surgically), Fractures ( left leg as toddler), Kidney Stones, Peripheral Edema, Chronic Kidney Disease Surgical History: No Surg Hx Family History: States: Unknown Family Hx - Social History Hx Tobacco Use: Yes Hx Alcohol Use: No Hx Substance Use: No - Immunization History Hx Tetanus Toxoid Vaccination: No Hx Influenza Vaccination: No Hx Pneumococcal Vaccination: No <Jody Vasquez - Last Filed: 08/10/17 08:04> <Heather Foreman - Last Filed: 08/10/17 19:40> Vital Signs: Last Vital Signs Temp 98.6 F 08/10/17 16:00 Pulse 131 H 08/10/17 12:30 Resp 21 08/10/17 12:30 BP 87/51 L 08/10/17 12:29 Pulse Ox 95 08/10/17 12:30 - [facility] Procedures INSERTION OF INFUSION DEV INTO SUP VENA CAVA, PERC APPROACH (04/01/17) Review Of Systems Constitutional: Negative for: Fever, Chills Gastrointestinal: Positive for: Vomiting, Abdominal Pain, Constipation <Jody Vasquez - Last Filed: 08/10/17 08:04> Physical Exam - Physical Exam Appears: Non-toxic, Unkempt Skin: Warm, Dry Head: Atraumatic, Normacephalic Oral Mucosa: Dry Chest: Symmetrical Cardiovascular: Rhythm Regular (Tachycardic) Respiratory: Normal Breath Sounds, No Rales, No Rhonchi, No Wheezing Gastrointestinal/Abdominal: Bowel Sounds (Hypoactive), Soft, Distention, No Guarding, No Rebound, Other (Old midline scar with soft umbilical scar at middle of scar. Hard 4in tender area to proxmial upper scar, questionable mass vs strangulated hernia) Back: No CVA Tenderness Extremity: Normal ROM (x4), Other (Bilateral lower leg with edema, erythema, cold to touch. Yellow crusts to legs, feet, and toes with malodorous oozing. Dorsalis pedis pulses audible with doppler. ) Neurological/Psych: Oriented x3, Normal Speech, Normal Cognition <Jody Vasquez - Last Filed: 08/10/17 08:04> ED Course And Treatment - Laboratory Results Result Diagrams: 08/10/17 05:54 08/10/17 05:54 O2 Sat by Pulse Oximetry: 97 (Room air) Pulse Ox Interpretation: Normal <Jody Vasquze - Last Filed: 08/10/17 08:04> - Laboratory Results Result Diagrams: 08/10/17 05:54 08/10/17 05:54 <Haether Foreman - Last Filed: 08/10/17 19:40> Critical Care Time - Critical Care Note Total Time (in mins): 35 Documented critical care: time excludes all time spent performing seperately billable procedures. <Heather Foreman - Last Filed: 08/10/17 19:40> Medical Decision Making <Jody Vasquez - Last Filed: 08/10/17 08:04> <Heather Foreman - Last Filed: 08/10/17 19:40> Medical Decision Making: Plan: CT abd/pel Blood work Cultures Urinalysis EKG CXR Morphine Zofran Vancomycin Piperacill/Tazo IV fluids pt found to have lactate >4, with tachycardia and tachypnea. wbc 35K. sepsis code initiated at 604 am. pt receiving iv fluids as of time of sepsis code (2 liter boluses being given, though was ordered incorrectly initially) 07 00 am pt found to be in svt/afib; cardizem ordered. initial ekg showed sinus tachycardia. [address] Mike from ICU, pt will be seen. 728 am surgical rn paged. [address] Mike from ICU'; pt to be admitted to Dr Morales; Dr Morales aware. 755 am message left for Dr Ceja with his service. (Jody Vasquez) Disposition Discussed With .: Ryan Mike Doctor Will See Patient In The: Hospital - Disposition Disposition Time: 07:47 <Jody Vasquez - Last Filed: 08/10/17 08:04> <Heather Foreman - Last Filed: 08/10/17 19:40> - Disposition Disposition: HOSPITALIZED Condition: SERIOUS - Clinical Impression Clinical Impression: Sepsis, Atrial fibrillation, new onset, Abdominal pain, Renal failure, Hyponatremia - Scribe Statement The provider has reviewed the documentation as recorded by the Scribe <Jody Vasquez - Last Filed: 08/10/17 08:04> <Heather Foreman - Last Filed: 08/10/17 19:40> - Scribe Statement Westley Zuleta All medical record entries made by the Scribe were at my direction and personally dictated by me. I have reviewed the chart and agree that the record accurately reflects my personal performance of the history, physical exam, medical decision making, and the department course for this patient. I have also personally directed, reviewed, and agree with the discharge instructions and disposition. (Jody Vasquez) Decision To Admit - Pt Status Changed To: Hospital Disposition Of: Inpatient - Admit Certification Admit to Inpatient:: After my assessment, the patient will require hospitalization for at least two midnights. This is because of the severity of symptoms shown, intensity of services needed, and/or the medical risk in this patient being treated as an outpatient. - InPatient: Physician Admission Certification:: pt requires iv antiboitics and electrolyte replacement, - . Bed Request Type: ICU Admitting Physician: Bishop Morales <Jody Vasquez - Last Filed: 08/10/17 08:04> <Heather Foreman - Last Filed: 08/10/17 19:40> - . Patient Diagnosis: Sepsis, Atrial fibrillation, new onset, Abdominal pain, Renal failure, Hyponatremia Addendum <Jody Vasquez - Last Filed: 08/10/17 08:04> <Heather Foreman - Last Filed: 08/10/17 19:40> Addendum: 08/10/17 17:15 Patient noted to be tachycardic, repeat EKG shows A fib with RVR. 10mg IV Cardizem given, however BP dropped 110s/40s, no further Ca channel or Beta blockers given. IV digoxin given, as well as IV NS bolus. Prior records reviewed, no evidence of prior atrial fibrillation during prior visits/EKGs. Heparin 5000unit bolus ordered for new onset A fib. Patient pending CT scan abd /pelvis to evaluation for possible SBO vs mass vs other acute process. (Heather Foreman)
[2017-08-10 05:54] LABS: VENOUS BLOOD GAS BASE EXCESS -1.3 mmol/L (0.0-2.0); VENOUS BLOOD GAS PCO2 43 mmHg (40-60); VENOUS BLOOD PH 7.36 (7.32-7.43)
[2017-08-10] MEDS ORDERED: Piperacill/Tazo 3.375gm in Dex 3.375 GM/50 ML BAG IVPB STA (06:05)
[2017-08-10] MEDS ORDERED: Vancomycin 1 gm/NS 200 ml 1 GM/200 ML BAG IVPB STA (06:05)
[2017-08-10 06:11] LABS: BASO # 0.1 K/uL (0.0-0.2); BASO % 0.3 % (0.0-2.0); EOS # 0.2 K/uL (0.0-0.7); EOS % 0.6 % (0.0-4.0); HEMATOCRIT 44.5 % (35.0-51.0); LYMPH # 0.8 K/uL (1.0-4.3); LYMPH % 2.2 % (20.0-40.0); MEAN CORPUSCULAR HEMOGLOBIN 31.7 pg (27.0-31.0); MEAN CORPUSCULAR HGB CONC 34.5 g/dL (33.0-37.0); MONO # 1.6 K/uL (0.0-0.8); MONO % 4.7 % (0.0-10.0); RED CELL DISTRIBUTION WIDTH 13.7 % (11.5-14.5)
[2017-08-10 06:12] LABS: MEAN CELL VOLUME 91.8 fL (80.0-94.0); PLATELET COUNT 416 K/uL (130-400); POTASSIUM 5.3 mmol/L (3.6-5.2); WHITE BLOOD COUNT 34.6 K/uL (4.8-10.8)
[2017-08-10 06:15] LABS: ALB/GLOB RATIO 1.1 (1.0-2.1); CALCIUM 10.1 mg/dl (8.6-10.4); TOTAL PROTEIN 8.9 g/dL (6.3-8.3)
[2017-08-10] MEDS ORDERED: Iohexol 240 (50 ml) ONE ×2 (06:29→08:11)
[2017-08-10] MEDS ORDERED: Piperacillin/Tazobact 3.375 gm 100 ML IVPB ONE (06:29)
[2017-08-10 06:34] LABS: MAGNESIUM 2.2 mg/dL (1.6-2.3); PHOSPHOROUS 7.1 mg/dL (2.5-4.5)
[2017-08-10 07:05] LABS: INR 1.1
[2017-08-10 07:09] LABS: NEUTROPHIL 90 % (50-75); PLATELET CLUMPS PRESENT; TOTAL CELLS COUNTED 100
[2017-08-10] MEDS ORDERED: Digoxin 500 mcg/2ml (0.5 mg/2ml) Inj IVP STA (07:19)
--- NOTE | 2017-08-10 07:25 | RAD ---
HISTORY: Sepsis Patient COMPARISON: Portable chest radiographs 03/29/2017. FINDINGS: LUNGS: No active pulmonary disease. PLEURA: No significant pleural effusion identified, no pneumothorax apparent. CARDIOVASCULAR: These rotated toward the right limiting evaluation of cardiac size which appears stable and upper limits normal once again. No pulmonary vascular derangement. OSSEOUS STRUCTURES: No significant abnormalities. VISUALIZED UPPER ABDOMEN: Normal. OTHER FINDINGS: None. IMPRESSION: No acute infiltrate or pleural effusion bilaterally. No pneumothorax. Cardiac silhouette appears upper limits of normal but stable.
[2017-08-10] MEDS ORDERED: Digoxin 500 mcg/2ml (0.5 mg/2ml) Inj ONE (07:52)
[2017-08-10 08:33] LABS: VENOUS BLOOD GAS PCO2 49 mmHg (40-60); VENOUS BLOOD PH 7.34 (7.32-7.43)
[2017-08-10 09:36] LABS: RBC URINE 3 /hpf (0-3); URINE BACTERIA RARE (<OCC); URINE BILIRUBIN NEGATIVE (NEGATIVE); URINE BLOOD NEGATIVE (NEGATIVE); URINE COLOR Yellow (YELLOW); URINE GLUCOSE (UA) NORMAL (Normal); URINE KETONE NEGATIVE (NEGATIVE); URINE LEUKOCYTE ESTERASE TRACE Leu/uL (Negative); URINE PROTEIN NEGATIVE (NEGATIVE); URINE UROBILINOGEN NORMAL mg/dL (0.2-1.0); WBC URINE 8 /hpf (0-5)
[2017-08-10] MEDS ORDERED: Metoprolol 1 mg/ml Inj IVP ONE (11:30)
--- NOTE | 2017-08-10 12:48 | CT ---
PROCEDURE: CT Abdomen and Pelvis without intravenous contrast HISTORY: obstruction intestinal COMPARISON: No prior CT available for comparison. TECHNIQUE: Helical CT of the abdomen and pelvis was performed without oral or intravenous contrast as per referring physician request .. Contrast Dose: None Radiation dose: Total exam DLP = 1224.86 mGy-cm. This CT exam was performed using one or more of the following dose reduction techniques: Automated exposure control, adjustment of the mA and/or kV according to patient size, and/or use of iterative reconstruction technique. FINDINGS: LOWER THORAX: Mild cardiomegaly. Limited bilateral basilar dependent atelectasis. No pleural or pericardial effusion identified. LIVER: Unremarkable. No gross lesion or ductal dilatation. GALLBLADDER AND BILE DUCTS: A mildly distended gallbladder is appreciated which is otherwise unremarkable. PANCREAS: Unremarkable. No gross lesion or ductal dilatation. SPLEEN: Unremarkable. ADRENALS: A 2.4 x 2.3 cm nodule is seen related to the left adrenal gland inferiorly measuring 25 Hounsfield units. Follow-up MRI is advised to exclude potential malignancy. The right adrenal gland appears unremarkable. KIDNEYS AND URETERS: A 2.7 cm cyst is seen exophytic off the upper pole left kidney with a 2.6 cm cyst is exophytic off the lower pole left kidney well. No hydronephrosis bilaterally. A punctate intrarenal calcified at the lower pole left kidney as well. . VASCULATURE: Unremarkable. No aortic aneurysm. BOWEL: The stomach is grossly distended with fluid and a bit of air. Small-bowel loops are distended at the proximal to mid segments measuring up to 4.7 cm greatest dimension at the mid abdomen. This appears to be secondary to a small, incarcerated umbilical hernia. The efferent loop is ribbon-like exiting the hernia. Patient status post subtotal colectomy with the anastomotic site at the proximal to mid sigmoid colon unremarkable appearing. APPENDIX: Status post subtotal colectomy. PERITONEUM: Unremarkable. No free fluid. No free air. LYMPH NODES: Unremarkable. No enlarged lymph nodes. BLADDER: Unremarkable. REPRODUCTIVE: Unremarkable. BONES: No acute fracture. OTHER FINDINGS: None. IMPRESSION: A small incarcerated umbilical hernia contains a short segment of small bowel which exhibits a high-grade obstruction proximally and is completely collapsed distal to the hernia. No free intraperitoneal gas or ascites appreciable in the abdomen. The stomach is prominently distended. Other lesser findings are as discussed above. Findings discussed with Dr. Ceja 08/10/2017, 12:20 p.m..
[2017-08-10] MEDS: Piperacill/Tazo 2.25gm in Dex 2.25 GM/50 ML BAG IVPB SCH ×3 (13:52→23:14)
--- NOTE | 2017-08-10 15:41 | CP.PCM.CON ---
History of Present Illness - History of Present Illness History of Present Illness: General Surgery Consult Re: Abdominal pain HPI: 72M known to surgical team presented to the ER with multiple episodes of emesis x1 week with bilious emesis that began yesterday. No BM x ~8 days and general abdominal pain. Denies F/C, Hematemesis, SOB, Chest pain, Hematuria, dysuria, hematochezia, melena. Pt has never had this pain before. PMH: Arthritis, Colonic Polyps, LLE fracture, Kidney Stones, Peripheral Edema, CKD PSH: Partial colectomy SH: No tobacco, EtOH, or Drug use All: Cefdinir Meds: Denies Review of Systems - Review of Systems All systems: reviewed and no additional remarkable complaints except (as per HPI ) Past Patient History - Infectious Disease Hx of Infectious Diseases: None - Past Medical History & Family History Past Medical History?: Yes - Past Social History Smoking Status: Former Smoker - CARDIAC Hx Peripheral Edema: Yes - PULMONARY Hx Respiratory Disorders: No - NEUROLOGICAL Hx Neurological Disorder: No - HEENT Hx HEENT Problems: Yes Hx Glaucoma: Yes - RENAL Hx Chronic Kidney Disease: Yes Hx Kidney Stones: Yes - ENDOCRINE/METABOLIC Hx Endocrine Disorders: No - HEMATOLOGICAL/ONCOLOGICAL Hx Blood Disorders: No - INTEGUMENTARY Hx Dermatological Problems: No - MUSCULOSKELETAL/RHEUMATOLOGICAL Hx Arthritis: Yes (FINGERS) Hx Fractures: Yes (left leg as toddler) - GASTROINTESTINAL Hx Gastrointestinal Disorders: Yes Hx Bowel Surgery: Yes (COLON RESECTION) - GENITOURINARY/GYNECOLOGICAL Hx Genitourinary Disorders: Yes Hx Prostate Problems: Yes - PSYCHIATRIC Hx Substance Use: No - SURGICAL HISTORY Hx Surgeries: Yes Other/Comment: Cysto, stent insertion 09/29/15, Colon resction 2010. [facility]/LITHOTRIPSY - ANESTHESIA Hx Anesthesia: Yes Hx Anesthesia Reactions: No Hx Malignant Hyperthermia: No Meds Allergies/Adverse Reactions: Allergies Allergy/AdvReac Type Severity Reaction Status Date / Time cefdinir [From Omnicef] Allergy Verified 08/10/17 05:16 - Medications Medications: Current Medications Heparin Sodium (Porcine) (Heparin) 5,000 units SC Q12 PENDING SALE TO [facility] Piperacillin Sod/Tazobactam Sod (Zosyn 2.25 Gm Iv Premix) 2.25 gm in 50 mls @ 100 mls/hr IVPB Q6 PENDING SALE TO [facility] Last Admin: 08/10/17 13:52 Dose: Not Given Diltiazem HCl 125 mg/ Dextrose 125 mls @ 5 mls/hr IV .Q24H KARAN; 5 MG/HR PRN Reason: Protocol Last Admin: 08/10/17 10:36 Dose: 5 mg/hr, 5 mls/hr Pantoprazole Sodium (Protonix Inj) 40 mg IVP DAILY KARAN Last Admin: 08/10/17 09:32 Dose: 40 mg Physical Exam - Constitutional Appears: Non-toxic, No Acute Distress - Head Exam Head Exam: ATRAUMATIC, NORMOCEPHALIC - Eye Exam Eye Exam: EOMI. absent: Scleral icterus - ENT Exam ENT Exam: Mucous Membranes Dry Additional comments: trachea midline - Respiratory Exam Respiratory Exam: NORMAL BREATHING PATTERN. absent: Respiratory Distress - Cardiovascular Exam Cardiovascular Exam: Tachycardia, +S1, +S2 - GI/Abdominal Exam GI & Abdominal Exam: Distended (mild), Guarding (mild), Hernia (midline), Mass, Soft, Tenderness (In epigastrum and LLQ). absent: Firm, Rebound, Rigid Additional comments: Old midline scar - Rectal Exam Rectal Exam: Deferred - Extremities Exam Extremities exam: Positive for: normal capillary refill. Negative for: calf tenderness - Back Exam Back exam: absent: CVA tenderness (L), CVA tenderness (R) - Neurological Exam Neurological exam: Alert, Oriented x3 - Psychiatric Exam Psychiatric exam: Normal Affect, Normal Mood - Skin Skin Exam: Dry, Warm Results - Vital Signs Recent Vital Signs: Last Vital Signs Temp 98.1 F 08/10/17 08:02 Pulse 131 H 08/10/17 12:30 Resp 21 08/10/17 12:30 BP 87/51 L 08/10/17 12:29 Pulse Ox 95 08/10/17 12:30 - Labs Result Diagrams: 08/10/17 05:54 08/10/17 05:54 Labs: Laboratory Results - last 24 hr 08/10/17 08/10/17 08/10/17 05:50 05:54 05:54 WBC 34.6 H D RBC 4.85 Hgb 15.4 D Hct 44.5 MCV 91.8 D MCH 31.7 H MCHC 34.5 RDW 13.7 Plt Count 416 H D MPV 9.0 Neut % (Auto) 92.2 H Lymph % (Auto) 2.2 L Brantley % (Auto) 4.7 Eos % (Auto) 0.6 Baso % (Auto) 0.3 Neut # 31.9 H Lymph # 0.8 L Brantley # 1.6 H Eos # 0.2 Baso # 0.1 Neutrophils % (Manual) 90 H Band Neutrophils % 1 Lymphocytes % (Manual) 4 L Monocytes % (Manual) 5 Platelet Estimate Normal Plt Clumps, EDTA Present PT 11.9 INR 1.1 APTT 24 pO2 29 L VBG pH 7.36 VBG pCO2 43 VBG HCO3 22.7 VBG Total CO2 25.6 VBG O2 Sat (Calc) 63.1 VBG Base Excess -1.3 L VBG Potassium 4.9 Sodium 128.0 L Chloride 90.0 L Glucose 296 H Lactate 4.9 H* Crit Value Called To Poppy smith/rn Crit Value Called By Agapito cartwright/rt Crit Value Read Back Y Blood Gas Notified Time 555 Potassium Carbon Dioxide Anion Gap BUN Creatinine Est GFR ( Amer) Est GFR (Non-Af Amer) Random Glucose Calcium Phosphorus Magnesium Total Bilirubin AST ALT Alkaline Phosphatase Total Creatine Kinase CK-MB (Mass) Troponin I, Quant Total Protein Albumin Globulin Albumin/Globulin Ratio Lipase Venous Blood Potassium 4.9 Urine Color Urine Clarity Urine pH Ur Specific Pierre Urine Protein Urine Glucose (UA) Urine Ketones Urine Blood Urine Nitrate Urine Bilirubin Urine Urobilinogen Ur Leukocyte Esterase Urine WBC (Auto) Urine RBC (Auto) Ur Squamous Epith Cells Urine Bacteria 08/10/17 08/10/17 08/10/17 05:54 06:21 08:29 WBC RBC Hgb Hct MCV MCH MCHC RDW Plt Count MPV Neut % (Auto) Lymph % (Auto) Brantley % (Auto) Eos % (Auto) Baso % (Auto) Neut # Lymph # Brantley # Eos # Baso # Neutrophils % (Manual) Band Neutrophils % Lymphocytes % (Manual) Monocytes % (Manual) Platelet Estimate Plt Clumps, EDTA PT INR APTT pO2 21 L VBG pH 7.34 VBG pCO2 49 VBG HCO3 23.1 VBG Total CO2 27.9 VBG O2 Sat (Calc) 37.3 L VBG Base Excess 0.0 VBG Potassium 5.0 Sodium 125 L 131.0 L Chloride 86 L 99.0 Glucose 193 H Lactate 3.4 H Crit Value Called To Crit Value Called By Crit Value Read Back Blood Gas Notified Time Potassium 5.3 H Carbon Dioxide 20 L Anion Gap 24 H BUN 83 H Creatinine 2.2 H Est GFR ( Amer) 36 Est GFR (Non-Af Amer) 29 Random Glucose 266 H Calcium 10.1 Phosphorus 7.1 H Magnesium 2.2 Total Bilirubin 1.0 AST 28 ALT 40 Alkaline Phosphatase 95 Total Creatine Kinase CK-MB (Mass) Troponin I, Quant Total Protein 8.9 H Albumin 4.6 Globulin 4.3 H Albumin/Globulin Ratio 1.1 Lipase 1164 H Venous Blood Potassium 5.0 Urine Color Urine Clarity Urine pH Ur Specific Pierre Urine Protein Urine Glucose (UA) Urine Ketones Urine Blood Urine Nitrate Urine Bilirubin Urine Urobilinogen Ur Leukocyte Esterase Urine WBC (Auto) Urine RBC (Auto) Ur Squamous Epith Cells Urine Bacteria 08/10/17 08/10/17 09:23 11:20 WBC RBC Hgb Hct MCV MCH MCHC RDW Plt Count MPV Neut % (Auto) Lymph % (Auto) Brantley % (Auto) Eos % (Auto) Baso % (Auto) Neut # Lymph # Brantley # Eos # Baso # Neutrophils % (Manual) Band Neutrophils % Lymphocytes % (Manual) Monocytes % (Manual) Platelet Estimate Plt Clumps, EDTA PT INR APTT pO2 VBG pH VBG pCO2 VBG HCO3 VBG Total CO2 VBG O2 Sat (Calc) VBG Base Excess VBG Potassium Sodium Chloride Glucose Lactate Crit Value Called To Crit Value Called By Crit Value Read Back Blood Gas Notified Time Potassium Carbon Dioxide Anion Gap BUN Creatinine Est GFR ( Amer) Est GFR (Non-Af Amer) Random Glucose Calcium Phosphorus Magnesium Total Bilirubin AST ALT Alkaline Phosphatase Total Creatine Kinase 85 CK-MB (Mass) 3.04 Troponin I, Quant 0.0260 Total Protein Albumin Globulin Albumin/Globulin Ratio Lipase Venous Blood Potassium Urine Color Yellow Urine Clarity Hazy Urine pH 5.0 Ur Specific Pierre 1.018 Urine Protein Negative Urine Glucose (UA) Normal Urine Ketones Negative Urine Blood Negative Urine Nitrate Negative Urine Bilirubin Negative Urine Urobilinogen Normal Ur Leukocyte Esterase Trace Urine WBC (Auto) 8 H Urine RBC (Auto) 3 Ur Squamous Epith Cells 9 H Urine Bacteria Rare - Imaging and Cardiology CT scan - abdomen Status: Image reviewed by me, Report reviewed by me Assessment & Plan - Assessment and Plan (Free Text) Assessment: 72M with SBO likely due to incarcerated ventral hernia Plan: NGT placed- 1300cc bilious fluid out immediately NPO IVF Cont Abx, monitor leukocytosis F/U lactate, trending down AM labs Analgesia To OR for Ex lap D/W Dr. Marcial Thornton PGY4
--- NOTE | 2017-08-10 16:27 | RAD ---
HISTORY: NG TUBE PLACEMENT COMPARISON: Portable chest 08/10/2017 06:58 a.m.. FINDINGS: LUNGS: Inspiratory volume appears diminished with nasogastric tube identified placed terminating at the midline upper abdomen likely in the gastric viscus. Limited patchy infiltrate at the right infrahilar space is in question with remaining lung rhodes clear bilaterally. PLEURA: No significant pleural effusion identified, no pneumothorax apparent. CARDIOVASCULAR: Cardiac silhouette remains prominent appearing with borderline pulmonary venous congestion pattern identified at this time. OSSEOUS STRUCTURES: No significant abnormalities. VISUALIZED UPPER ABDOMEN: Normal. OTHER FINDINGS: None. IMPRESSION: 1. Borderline pulmonary venous congestion. No infiltrate pleural effusion or pneumothorax identified. Cardiac silhouette remains prominent appearing. 2. Right infrahilar airspace disease in question in the interval. 3. Nasogastric tube in position as discussed above.
--- NOTE | 2017-08-10 17:37 | PCM.SEPTIC ---
Sepsis Progress Note - Reassessment Type Date of Evaluation: 08/10/17 Time of Evaluation: 10:00 Reassessment Type: Non-invasive reassessment - Non Invasive Reassessment Were the most recent vital sign reviewed: Yes Vital Sign (Latest): Temp Pulse Resp BP Pulse Ox 98.6 F 131 H 21 87/51 L 95 08/10/17 16:00 08/10/17 12:30 08/10/17 12:30 08/10/17 12:29 08/10/17 12:30 Cardiovascular: Yes: Edema, Tachycardia Respiratory: Yes: Decreased Breath Sounds Capillary Refill: Normal (Less than 2 sec) Pulses: Normal Radial, Decreased Dorsalis Pedis (dopplerable ), Decreased Posterior Tibialis (dopplerable) Skin: Warm, Other (erythematous cellulitic changes b/l LE) - Invasive Reassessment (complete 2 of 4) Was a Central Venous Pressure Measurement obtained within 6 Hours after the presentation of septic shock: No Was a central venous oxygen measurement obtained within 6 hours after the presentation of septic shock: No Was a bedside cardiovascular ultrasound performed within 6 hours after the presentation of septic shock: No Was a passive leg raise performed or was a fluid challenge performed within 6 hrs of the initial fluid bolus: No Fluid Challenge performed: Yes
--- NOTE | 2017-08-10 17:42 | CP.PCM.CON ---
<RonnyjohanneRachel Dhruv - Last Filed: 08/10/17 17:39> History of Present Illness - History of Present Illness History of Present Illness: CC: "belly pain, vomiting, and constipation for one week" 72 y/o M w/PMHx of persistent lower extremity cellulitis, colon polyp resection , CKD, recurrent nephrolithiasis. Pt states that he has not had a bowel movement in more than 5 days and that he has had increasing diffuse abdominal pain during the same time. Pt also notes that he has not been passing gas but has chills and has been vomiting dark-green emesis frequently unrelated to food intake. Patient says in the past few days he has vomited around 30 times. He notes that he has not eaten for the past several days but still has been vomiting, most recently upon arrival to the ED. He has tried several over the counter laxatives and found no relief. On questioning, he notes that his abdomen is much more swollen than it normally is. Subsequently in the ED he was found to have new onset atrial fibrillation. Patient denies chest pain or shortness of breath. PMHx: CKD, lower extremity cellulitis, large colonic polyps (resected), nephrolithiasis, BPH, PSH: about 80% of colon resected 2010, ureteral stent and lithotripsy [id number] FH: non-contributory SH: Patient lives at home with son. Pt reports that he drank socially but quit 9 years ago. He also was a light tobacco user but quit that around 9 years ago. He denies ever using illicit drug use. Home meds: none Allergies: cefdinir Review of Systems - Constitutional Constitutional: Chills. absent: Fever - Cardiovascular Cardiovascular: Edema. absent: Chest Pain, Chest Pain at Rest - Respiratory Respiratory: absent: Cough, Dyspnea on Exertion, Wheezing, Chest Congestion - Gastrointestinal Gastrointestinal: Constipation, Nausea, Vomiting. absent: Diarrhea - Genitourinary Genitourinary: absent: Difficulty Urinating - Integumentary Integumentary: Rash (LE b/l erythema and edema ), Swelling - Hematologic/Lymphatic Hematologic: absent: Easy Bleeding, Easy Bruising Past Patient History - Infectious Disease Hx of Infectious Diseases: None - Past Medical History & Family History Past Medical History?: Yes - Past Social History Smoking Status: Former Smoker - CARDIAC Hx Peripheral Edema: Yes - PULMONARY Hx Respiratory Disorders: No - NEUROLOGICAL Hx Neurological Disorder: No - HEENT Hx HEENT Problems: Yes Hx Glaucoma: Yes - RENAL Hx Chronic Kidney Disease: Yes Hx Kidney Stones: Yes - ENDOCRINE/METABOLIC Hx Endocrine Disorders: No - HEMATOLOGICAL/ONCOLOGICAL Hx Blood Disorders: No - INTEGUMENTARY Hx Dermatological Problems: No - MUSCULOSKELETAL/RHEUMATOLOGICAL Hx Arthritis: Yes (FINGERS) Hx Fractures: Yes (left leg as toddler) - GASTROINTESTINAL Hx Gastrointestinal Disorders: Yes Hx Bowel Surgery: Yes (COLON RESECTION) - GENITOURINARY/GYNECOLOGICAL Hx Genitourinary Disorders: Yes Hx Prostate Problems: Yes - PSYCHIATRIC Hx Substance Use: No - SURGICAL HISTORY Hx Surgeries: Yes Other/Comment: Cysto, stent insertion 09/29/15, Colon resction 2010. [facility]/LITHOTRIPSY - ANESTHESIA Hx Anesthesia: Yes Hx Anesthesia Reactions: No Hx Malignant Hyperthermia: No Meds Allergies/Adverse Reactions: Allergies Allergy/AdvReac Type Severity Reaction Status Date / Time cefdinir [From Omnicef] Allergy Verified 08/10/17 05:16 - Medications Medications: Current Medications Heparin Sodium (Porcine) (Heparin) 5,000 units SC Q12 KARAN Piperacillin Sod/Tazobactam Sod (Zosyn 2.25 Gm Iv Premix) 2.25 gm in 50 mls @ 100 mls/hr IVPB Q6 KARAN Last Admin: 08/10/17 17:19 Dose: 100 mls/hr Diltiazem HCl 125 mg/ Dextrose 125 mls @ 5 mls/hr IV .Q24H KARAN; 5 MG/HR PRN Reason: Protocol Last Titration: 08/10/17 11:00 Dose: 15 mg/hr, 15 mls/hr Pantoprazole Sodium (Protonix Inj) 40 mg IVP DAILY KARAN Last Admin: 08/10/17 09:32 Dose: 40 mg Physical Exam - Constitutional Appears: Toxic - Head Exam Head Exam: ATRAUMATIC, NORMAL INSPECTION, NORMOCEPHALIC - Eye Exam Eye Exam: EOMI, Normal appearance - ENT Exam ENT Exam: Mucous Membranes Moist - Respiratory Exam Respiratory Exam: Clear to Auscultation Bilateral - Cardiovascular Exam Cardiovascular Exam: Irregular Rhythm, +S1, +S2 - GI/Abdominal Exam GI & Abdominal Exam: Diminished Bowel Sounds, Distended, Hypoactive Bowel Sounds , Tenderness - Extremities Exam Extremities exam: Positive for: pedal edema - Psychiatric Exam Psychiatric exam: Normal Affect, Normal Mood - Skin Skin Exam: Erythema, Rash, Warm Results - Vital Signs Recent Vital Signs: Last Vital Signs Temp 98.6 F 08/10/17 16:00 Pulse 131 H 08/10/17 12:30 Resp 21 08/10/17 12:30 BP 87/51 L 08/10/17 12:29 Pulse Ox 95 08/10/17 12:30 - Labs Result Diagrams: 08/10/17 05:54 08/10/17 05:54 Labs: Laboratory Results - last 24 hr 08/10/17 08/10/17 08/10/17 05:50 05:54 05:54 WBC 34.6 H D RBC 4.85 Hgb 15.4 D Hct 44.5 MCV 91.8 D MCH 31.7 H MCHC 34.5 RDW 13.7 Plt Count 416 H D MPV 9.0 Neut % (Auto) 92.2 H Lymph % (Auto) 2.2 L Stark % (Auto) 4.7 Eos % (Auto) 0.6 Baso % (Auto) 0.3 Neut # 31.9 H Lymph # 0.8 L Stark # 1.6 H Eos # 0.2 Baso # 0.1 Neutrophils % (Manual) 90 H Band Neutrophils % 1 Lymphocytes % (Manual) 4 L Monocytes % (Manual) 5 Platelet Estimate Normal Plt Clumps, EDTA Present PT 11.9 INR 1.1 APTT 24 pO2 29 L VBG pH 7.36 VBG pCO2 43 VBG HCO3 22.7 VBG Total CO2 25.6 VBG O2 Sat (Calc) 63.1 VBG Base Excess -1.3 L VBG Potassium 4.9 Sodium 128.0 L Chloride 90.0 L Glucose 296 H Lactate 4.9 H* Crit Value Called To Poppy smith/rn Crit Value Called By Agapito cartwright/rt Crit Value Read Back Y Blood Gas Notified Time 555 Potassium Carbon Dioxide Anion Gap BUN Creatinine Est GFR ( Amer) Est GFR (Non-Af Amer) Random Glucose Calcium Phosphorus Magnesium Total Bilirubin AST ALT Alkaline Phosphatase Total Creatine Kinase CK-MB (Mass) Troponin I, Quant Total Protein Albumin Globulin Albumin/Globulin Ratio Lipase Venous Blood Potassium 4.9 Urine Color Urine Clarity Urine pH Ur Specific [place] Urine Protein Urine Glucose (UA) Urine Ketones Urine Blood Urine Nitrate Urine Bilirubin Urine Urobilinogen Ur Leukocyte Esterase Urine WBC (Auto) Urine RBC (Auto) Ur Squamous Epith Cells Urine Bacteria 08/10/17 08/10/17 08/10/17 05:54 06:21 08:29 WBC RBC Hgb Hct MCV MCH MCHC RDW Plt Count MPV Neut % (Auto) Lymph % (Auto) Stark % (Auto) Eos % (Auto) Baso % (Auto) Neut # Lymph # Stark # Eos # Baso # Neutrophils % (Manual) Band Neutrophils % Lymphocytes % (Manual) Monocytes % (Manual) Platelet Estimate Plt Clumps, EDTA PT INR APTT pO2 21 L VBG pH 7.34 VBG pCO2 49 VBG HCO3 23.1 VBG Total CO2 27.9 VBG O2 Sat (Calc) 37.3 L VBG Base Excess 0.0 VBG Potassium 5.0 Sodium 125 L 131.0 L Chloride 86 L 99.0 Glucose 193 H Lactate 3.4 H Crit Value Called To Crit Value Called By Crit Value Read Back Blood Gas Notified Time Potassium 5.3 H Carbon Dioxide 20 L Anion Gap 24 H BUN 83 H Creatinine 2.2 H Est GFR ( Amer) 36 Est GFR (Non-Af Amer) 29 Random Glucose 266 H Calcium 10.1 Phosphorus 7.1 H Magnesium 2.2 Total Bilirubin 1.0 AST 28 ALT 40 Alkaline Phosphatase 95 Total Creatine Kinase CK-MB (Mass) Troponin I, Quant Total Protein 8.9 H Albumin 4.6 Globulin 4.3 H Albumin/Globulin Ratio 1.1 Lipase 1164 H Venous Blood Potassium 5.0 Urine Color Urine Clarity Urine pH Ur Specific [place] Urine Protein Urine Glucose (UA) Urine Ketones Urine Blood Urine Nitrate Urine Bilirubin Urine Urobilinogen Ur Leukocyte Esterase Urine WBC (Auto) Urine RBC (Auto) Ur Squamous Epith Cells Urine Bacteria 08/10/17 08/10/17 09:23 11:20 WBC RBC Hgb Hct MCV MCH MCHC RDW Plt Count MPV Neut % (Auto) Lymph % (Auto) Stark % (Auto) Eos % (Auto) Baso % (Auto) Neut # Lymph # Stark # Eos # Baso # Neutrophils % (Manual) Band Neutrophils % Lymphocytes % (Manual) Monocytes % (Manual) Platelet Estimate Plt Clumps, EDTA PT INR APTT pO2 VBG pH VBG pCO2 VBG HCO3 VBG Total CO2 VBG O2 Sat (Calc) VBG Base Excess VBG Potassium Sodium Chloride Glucose Lactate Crit Value Called To Crit Value Called By Crit Value Read Back Blood Gas Notified Time Potassium Carbon Dioxide Anion Gap BUN Creatinine Est GFR ( Amer) Est GFR (Non-Af Amer) Random Glucose Calcium Phosphorus Magnesium Total Bilirubin AST ALT Alkaline Phosphatase Total Creatine Kinase 85 CK-MB (Mass) 3.04 Troponin I, Quant 0.0260 Total Protein Albumin Globulin Albumin/Globulin Ratio Lipase Venous Blood Potassium Urine Color Yellow Urine Clarity Hazy Urine pH 5.0 Ur Specific [place] 1.018 Urine Protein Negative Urine Glucose (UA) Normal Urine Ketones Negative Urine Blood Negative Urine Nitrate Negative Urine Bilirubin Negative Urine Urobilinogen Normal Ur Leukocyte Esterase Trace Urine WBC (Auto) 8 H Urine RBC (Auto) 3 Ur Squamous Epith Cells 9 H Urine Bacteria Rare Assessment & Plan - Assessment and Plan (Free Text) Assessment: 72 M w/ PMHx of previous abdominal surgery for subtotal colon resection, persistent lower extremity cellulitis presents with constipation, abdominal pain and vomiting x 5 days. Neuro: Intact, No acute issues Cardio: new-onset afib with SVT - EKG showed atrial fibrillation with SVT, repeat EKG - HR persistently elevated at 111-160, received cardizem and digoxin in the ED -Cardizem drip - Previous Echo by Dr. Leblanc 04/04/17 showed normal LVEF 63% and mild LAP elevation without dilation Pulm: no acute issues - CXR 08/10/17 showed no evidence of acute infiltrate, pleural effusion or pneumothorax. - Maintaining O2 saturation 94-100% on room air Nephro: Chronic Kidney Disease Stage 4, hyponatremia, hyperkalemia, hypochloremia, hemodynamically unstable - BUN 83, Cr 2.2 - Na 125, K 5.3, Cl 86, HCO3 20 - EGFR 29 indicating Stage 4 CKD - NS increase to 125 mLs/hr -repeat CMP GI: bowel obstruction vs bowel perforation vs stool impaction - Surgery consulted (Dr. Ceja) --> help appreciated - F/U CT with PO and IV contrast result - Lipase is elevated at 1164 - NPO - NGT placed after CT - Patient to go for ex lap with Dr. Ceja today : - Given history of extensive nephrolithiasis in the past, will monitor closely Endo: elevated random glucose - Patient denied hx of Diabetes, but will continue to monitor Heme: Mild thrombocytophilia - Platelets mildly elevated at 416, likely secondary to SIRS/sepsis ID: Likely sepsis, origin unknown - Leukocytosis of 34.6, 90% neutrophils, 1 bands - Currently afebrile - Vanco ordered by ED, trough 12.8 - Restart Zosyn 2.25 - Blood culture, wound culture, urine culture ordered by ED - VBG Lactate 4.9 PPX: - Heparin - Protonix <Ryan Mike - Last Filed: 08/10/17 18:39> Meds - Medications Medications: Current Medications Heparin Sodium (Porcine) (Heparin) 5,000 units SC Q12 KARAN Piperacillin Sod/Tazobactam Sod (Zosyn 2.25 Gm Iv Premix) 2.25 gm in 50 mls @ 100 mls/hr IVPB Q6 KARAN Last Admin: 08/10/17 17:19 Dose: 100 mls/hr Diltiazem HCl 125 mg/ Dextrose 125 mls @ 5 mls/hr IV .Q24H KARAN; 5 MG/HR PRN Reason: Protocol Last Titration: 08/10/17 11:00 Dose: 15 mg/hr, 15 mls/hr Pantoprazole Sodium (Protonix Inj) 40 mg IVP DAILY KARAN Last Admin: 08/10/17 09:32 Dose: 40 mg Results - Vital Signs Recent Vital Signs: Last Vital Signs Temp 98.6 F 08/10/17 16:00 Pulse 131 H 08/10/17 12:30 Resp 21 08/10/17 12:30 BP 87/51 L 08/10/17 12:29 Pulse Ox 95 08/10/17 12:30 - Labs Result Diagrams: 08/10/17 05:54 08/10/17 05:54 Labs: Laboratory Results - last 24 hr 08/10/17 08/10/17 08/10/17 05:50 05:54 05:54 WBC 34.6 H D RBC 4.85 Hgb 15.4 D Hct 44.5 MCV 91.8 D MCH 31.7 H MCHC 34.5 RDW 13.7 Plt Count 416 H D MPV 9.0 Neut % (Auto) 92.2 H Lymph % (Auto) 2.2 L Stark % (Auto) 4.7 Eos % (Auto) 0.6 Baso % (Auto) 0.3 Neut # 31.9 H Lymph # 0.8 L Stark # 1.6 H Eos # 0.2 Baso # 0.1 Neutrophils % (Manual) 90 H Band Neutrophils % 1 Lymphocytes % (Manual) 4 L Monocytes % (Manual) 5 Platelet Estimate Normal Plt Clumps, EDTA Present PT 11.9 INR 1.1 APTT 24 pO2 29 L VBG pH 7.36 VBG pCO2 43 VBG HCO3 22.7 VBG Total CO2 25.6 VBG O2 Sat (Calc) 63.1 VBG Base Excess -1.3 L VBG Potassium 4.9 Sodium 128.0 L Chloride 90.0 L Glucose 296 H Lactate 4.9 H* Crit Value Called To Poppy smith/rn Crit Value Called By Agapito cartwright/rt Crit Value Read Back Y Blood Gas Notified Time 555 Potassium Carbon Dioxide Anion Gap BUN Creatinine Est GFR ( Amer) Est GFR (Non-Af Amer) Random Glucose Calcium Phosphorus Magnesium Total Bilirubin AST ALT Alkaline Phosphatase Total Creatine Kinase CK-MB (Mass) Troponin I, Quant Total Protein Albumin Globulin Albumin/Globulin Ratio Lipase Procalcitonin Venous Blood Potassium 4.9 Urine Color Urine Clarity Urine pH Ur Specific [place] Urine Protein Urine Glucose (UA) Urine Ketones Urine Blood Urine Nitrate Urine Bilirubin Urine Urobilinogen Ur Leukocyte Esterase Urine WBC (Auto) Urine RBC (Auto) Ur Squamous Epith Cells Urine Bacteria 08/10/17 08/10/17 08/10/17 05:54 06:21 08:29 WBC RBC Hgb Hct MCV MCH MCHC RDW Plt Count MPV Neut % (Auto) Lymph % (Auto) Stark % (Auto) Eos % (Auto) Baso % (Auto) Neut # Lymph # Stark # Eos # Baso # Neutrophils % (Manual) Band Neutrophils % Lymphocytes % (Manual) Monocytes % (Manual) Platelet Estimate Plt Clumps, EDTA PT INR APTT pO2 21 L VBG pH 7.34 VBG pCO2 49 VBG HCO3 23.1 VBG Total CO2 27.9 VBG O2 Sat (Calc) 37.3 L VBG Base Excess 0.0 VBG Potassium 5.0 Sodium 125 L 131.0 L Chloride 86 L 99.0 Glucose 193 H Lactate 3.4 H Crit Value Called To Crit Value Called By Crit Value Read Back Blood Gas Notified Time Potassium 5.3 H Carbon Dioxide 20 L Anion Gap 24 H BUN 83 H Creatinine 2.2 H Est GFR ( Amer) 36 Est GFR (Non-Af Amer) 29 Random Glucose 266 H Calcium 10.1 Phosphorus 7.1 H Magnesium 2.2 Total Bilirubin 1.0 AST 28 ALT 40 Alkaline Phosphatase 95 Total Creatine Kinase CK-MB (Mass) Troponin I, Quant Total Protein 8.9 H Albumin 4.6 Globulin 4.3 H Albumin/Globulin Ratio 1.1 Lipase 1164 H Procalcitonin Venous Blood Potassium 5.0 Urine Color Urine Clarity Urine pH Ur Specific [place] Urine Protein Urine Glucose (UA) Urine Ketones Urine Blood Urine Nitrate Urine Bilirubin Urine Urobilinogen Ur Leukocyte Esterase Urine WBC (Auto) Urine RBC (Auto) Ur Squamous Epith Cells Urine Bacteria 08/10/17 08/10/17 08/10/17 09:23 11:20 15:43 WBC RBC Hgb Hct MCV MCH MCHC RDW Plt Count MPV Neut % (Auto) Lymph % (Auto) Stark % (Auto) Eos % (Auto) Baso % (Auto) Neut # Lymph # Stark # Eos # Baso # Neutrophils % (Manual) Band Neutrophils % Lymphocytes % (Manual) Monocytes % (Manual) Platelet Estimate Plt Clumps, EDTA PT INR APTT pO2 VBG pH VBG pCO2 VBG HCO3 VBG Total CO2 VBG O2 Sat (Calc) VBG Base Excess VBG Potassium Sodium Chloride Glucose Lactate Crit Value Called To Crit Value Called By Crit Value Read Back Blood Gas Notified Time Potassium Carbon Dioxide Anion Gap BUN Creatinine Est GFR ( Amer) Est GFR (Non-Af Amer) Random Glucose Calcium Phosphorus Magnesium Total Bilirubin AST ALT Alkaline Phosphatase Total Creatine Kinase 85 CK-MB (Mass) 3.04 Troponin I, Quant 0.0260 Total Protein Albumin Globulin Albumin/Globulin Ratio Lipase Procalcitonin 0.36 Venous Blood Potassium Urine Color Yellow Urine Clarity Hazy Urine pH 5.0 Ur Specific [place] 1.018 Urine Protein Negative Urine Glucose (UA) Normal Urine Ketones Negative Urine Blood Negative Urine Nitrate Negative Urine Bilirubin Negative Urine Urobilinogen Normal Ur Leukocyte Esterase Trace Urine WBC (Auto) 8 H Urine RBC (Auto) 3 Ur Squamous Epith Cells 9 H Urine Bacteria Rare Attending/Attestation - Attestation I have personally seen and examined this patient.: Yes I have fully participated in the care of the patient.: Yes I have reviewed all pertinent clinical information: Yes Notes (Text): 08/10/17 18:36 Patient seen and examined. Admitted with incarcerated umbilical hernia and A. fib with rapid ventricular rate Started on antibiotics Continue Cardizem drip Surgical consult Follow-up renal function His fluid resuscitation
[2017-08-10] MEDS ORDERED: Lactated Ringer's 1,000 ML IV ONE (18:38)
[2017-08-10] MEDS ORDERED: Etomidate 20 mg/10ml Inj IV ONE ×2 (18:41)
[2017-08-10] MEDS ORDERED: Esmolol 100 mg/10ml Inj IV ONE (19:45)
--- NOTE | 2017-08-10 20:24 | CP.PCM.HP ---
History of Present Illness - History of Present Illness History of Present Illness: Chief complaint: Abdominal pain History of present illness: 72-year-old male with a history of arthritis, history of colon polyp, kidney stones, renal insufficiency came to the emergency room with 1 week of abdominal pain, and episodes of vomiting, got worse recently, yesterday started having bilious vomiting. He did not have any BM at least one week. But increasing abdominal pain also noted, associated with the abdomen or distention. He did not have any fever, chills. No bleeding. He denied any chest pain or shortness of breath. No difficulty in urination. he is not feeling well for at least one week. Patient is currently intubated in the intensive care unit following the surgery Past medical history: Arthritis, history of colon polyps, kidney stones, renal insufficiency. Past surgical history: Partial colectomy Surgical history nonsmoker and nonalcoholic Allergies allergic to cefdinir. Current medications none History was taken from the chart Review of system: Patient is currently intubated. On ventilator. Postoperative. Agitated. We will be getting the sedation, and pain medications. On examination: Temp Pulse Resp BP Pulse Ox 98.6 F 131 H 21 87/51 L 95 08/10/17 16:00 08/10/17 12:30 08/10/17 12:30 08/10/17 12:29 08/10/17 12:30 Vital signs, tachycardia noted, tachypnea noted. Chest good air entry bilaterally. Tachycardia with irregular heart sounds noted Abdomen postoperative Extremities no pedal edema Patient has a Wall catheter. Patient also has a intubation on ventilator. NG tube in suction Patient's labs revealed Sodium 125, BUN 83, creatinine is 2.2 Lipase [id number]. Normal. proCalcitonin level noted. Phosphorus is also elevated Chest x-ray nonspecific. CAT scan of the abdomen showing evidence of incarcerated umbilical hernia and associated with a small bowel obstruction. Unremarkable pancreas, and a mildly distended gallbladder. Adrenal nodule noted Kidney cyst noted Assessment and recommendation: 72-year-old male with a history of arthritis, history of colon polyp, renal stones, renal insufficiency, renal cyst. Now admitted with recurrent abdominal pain, abdominal distention, and vomiting, associated with a possible incarcerated ventral hernia, and small bowel obstruction. Patient underwent surgical intervention today, currently on ventilator. Patient also has evidence of elevated lipase, possibly secondary to dehydration , likely dehydration causing pancreatitis. Electrolyte imbalance. Elevated white count. Associated sepsis cannot be ruled out, Patient also has a atrial fibrillation with rapid ventricular rate, most likely secondary to overall illness. We will continue with dehydration. Currently on ventilator. Labs ordered now. sedated the patient with propofol and fentanyl drip. DVT and GI prophylaxis. Will extubate the patient wants the clinically stable. Closely monitor the patient in the intensive care unit acute on chronic renal failure will f/u Present on Admission - Present on Admission Any Indicators Present on Admission: No History of DVT/PE: No History of Uncontrolled Diabetes: No Urinary Catheter: No Decubitus Ulcer Present: No Past Patient History - Infectious Disease Hx of Infectious Diseases: None - Past Medical History & Family History Past Medical History?: Yes - Past Social History Smoking Status: Former Smoker - CARDIAC Hx Peripheral Edema: Yes - PULMONARY Hx Respiratory Disorders: No - NEUROLOGICAL Hx Neurological Disorder: No - HEENT Hx HEENT Problems: Yes Hx Glaucoma: Yes - RENAL Hx Chronic Kidney Disease: Yes Hx Kidney Stones: Yes - ENDOCRINE/METABOLIC Hx Endocrine Disorders: No - HEMATOLOGICAL/ONCOLOGICAL Hx Blood Disorders: No - INTEGUMENTARY Hx Dermatological Problems: No - MUSCULOSKELETAL/RHEUMATOLOGICAL Hx Arthritis: Yes (FINGERS) Hx Fractures: Yes (left leg as toddler) - GASTROINTESTINAL Hx Gastrointestinal Disorders: Yes Hx Bowel Surgery: Yes (COLON RESECTION) - GENITOURINARY/GYNECOLOGICAL Hx Genitourinary Disorders: Yes Hx Prostate Problems: Yes - PSYCHIATRIC Hx Substance Use: No - SURGICAL HISTORY Hx Surgeries: Yes Other/Comment: Cysto, stent insertion 09/29/15, Colon resction 2010. [facility]/LITHOTRIPSY - ANESTHESIA Hx Anesthesia: Yes Hx Anesthesia Reactions: No Hx Malignant Hyperthermia: No Meds Allergies/Adverse Reactions: Allergies Allergy/AdvReac Type Severity Reaction Status Date / Time cefdinir [From Omnicef] Allergy Verified 08/10/17 05:16 Results - Vital Signs Recent Vital Signs: Last Vital Signs Temp 98.6 F 08/10/17 16:00 Pulse 131 H 08/10/17 12:30 Resp 21 08/10/17 12:30 BP 87/51 L 08/10/17 12:29 Pulse Ox 95 08/10/17 12:30 - Labs Result Diagrams: 08/10/17 05:54 08/10/17 05:54 Labs: Laboratory Results - last 24 hr 08/10/17 08/10/17 08/10/17 05:50 05:54 05:54 WBC 34.6 H D RBC 4.85 Hgb 15.4 D Hct 44.5 MCV 91.8 D MCH 31.7 H MCHC 34.5 RDW 13.7 Plt Count 416 H D MPV 9.0 Neut % (Auto) 92.2 H Lymph % (Auto) 2.2 L [place] % (Auto) 4.7 Eos % (Auto) 0.6 Baso % (Auto) 0.3 Neut # 31.9 H Lymph # 0.8 L [place] # 1.6 H Eos # 0.2 Baso # 0.1 Neutrophils % (Manual) 90 H Band Neutrophils % 1 Lymphocytes % (Manual) 4 L Monocytes % (Manual) 5 Platelet Estimate Normal Plt Clumps, EDTA Present PT 11.9 INR 1.1 APTT 24 pO2 29 L VBG pH 7.36 VBG pCO2 43 VBG HCO3 22.7 VBG Total CO2 25.6 VBG O2 Sat (Calc) 63.1 VBG Base Excess -1.3 L VBG Potassium 4.9 Sodium 128.0 L Chloride 90.0 L Glucose 296 H Lactate 4.9 H* Crit Value Called To Poppy smith/rn Crit Value Called By Agapito cartwright/rt Crit Value Read Back Y Blood Gas Notified Time 555 Potassium Carbon Dioxide Anion Gap BUN Creatinine Est GFR ( Amer) Est GFR (Non-Af Amer) Random Glucose Calcium Phosphorus Magnesium Total Bilirubin AST ALT Alkaline Phosphatase Total Creatine Kinase CK-MB (Mass) Troponin I, Quant Total Protein Albumin Globulin Albumin/Globulin Ratio Lipase Procalcitonin Venous Blood Potassium 4.9 Urine Color Urine Clarity Urine pH Ur Specific [place] Urine Protein Urine Glucose (UA) Urine Ketones Urine Blood Urine Nitrate Urine Bilirubin Urine Urobilinogen Ur Leukocyte Esterase Urine WBC (Auto) Urine RBC (Auto) Ur Squamous Epith Cells Urine Bacteria Blood Type Antibody Screen 08/10/17 08/10/17 08/10/17 05:54 06:21 08:29 WBC RBC Hgb Hct MCV MCH MCHC RDW Plt Count MPV Neut % (Auto) Lymph % (Auto) [place] % (Auto) Eos % (Auto) Baso % (Auto) Neut # Lymph # [place] # Eos # Baso # Neutrophils % (Manual) Band Neutrophils % Lymphocytes % (Manual) Monocytes % (Manual) Platelet Estimate Plt Clumps, EDTA PT INR APTT pO2 21 L VBG pH 7.34 VBG pCO2 49 VBG HCO3 23.1 VBG Total CO2 27.9 VBG O2 Sat (Calc) 37.3 L VBG Base Excess 0.0 VBG Potassium 5.0 Sodium 125 L 131.0 L Chloride 86 L 99.0 Glucose 193 H Lactate 3.4 H Crit Value Called To Crit Value Called By Crit Value Read Back Blood Gas Notified Time Potassium 5.3 H Carbon Dioxide 20 L Anion Gap 24 H BUN 83 H Creatinine 2.2 H Est GFR ( Amer) 36 Est GFR (Non-Af Amer) 29 Random Glucose 266 H Calcium 10.1 Phosphorus 7.1 H Magnesium 2.2 Total Bilirubin 1.0 AST 28 ALT 40 Alkaline Phosphatase 95 Total Creatine Kinase CK-MB (Mass) Troponin I, Quant Total Protein 8.9 H Albumin 4.6 Globulin 4.3 H Albumin/Globulin Ratio 1.1 Lipase 1164 H Procalcitonin Venous Blood Potassium 5.0 Urine Color Urine Clarity Urine pH Ur Specific [place] Urine Protein Urine Glucose (UA) Urine Ketones Urine Blood Urine Nitrate Urine Bilirubin Urine Urobilinogen Ur Leukocyte Esterase Urine WBC (Auto) Urine RBC (Auto) Ur Squamous Epith Cells Urine Bacteria Blood Type Antibody Screen 08/10/17 08/10/17 08/10/17 09:23 11:20 15:43 WBC RBC Hgb Hct MCV MCH MCHC RDW Plt Count MPV Neut % (Auto) Lymph % (Auto) [place] % (Auto) Eos % (Auto) Baso % (Auto) Neut # Lymph # [place] # Eos # Baso # Neutrophils % (Manual) Band Neutrophils % Lymphocytes % (Manual) Monocytes % (Manual) Platelet Estimate Plt Clumps, EDTA PT INR APTT pO2 VBG pH VBG pCO2 VBG HCO3 VBG Total CO2 VBG O2 Sat (Calc) VBG Base Excess VBG Potassium Sodium Chloride Glucose Lactate Crit Value Called To Crit Value Called By Crit Value Read Back Blood Gas Notified Time Potassium Carbon Dioxide Anion Gap BUN Creatinine Est GFR ( Amer) Est GFR (Non-Af Amer) Random Glucose Calcium Phosphorus Magnesium Total Bilirubin AST ALT Alkaline Phosphatase Total Creatine Kinase 85 CK-MB (Mass) 3.04 Troponin I, Quant 0.0260 Total Protein Albumin Globulin Albumin/Globulin Ratio Lipase Procalcitonin 0.36 Venous Blood Potassium Urine Color Yellow Urine Clarity Hazy Urine pH 5.0 Ur Specific [place] 1.018 Urine Protein Negative Urine Glucose (UA) Normal Urine Ketones Negative Urine Blood Negative Urine Nitrate Negative Urine Bilirubin Negative Urine Urobilinogen Normal Ur Leukocyte Esterase Trace Urine WBC (Auto) 8 H Urine RBC (Auto) 3 Ur Squamous Epith Cells 9 H Urine Bacteria Rare Blood Type Antibody Screen 08/10/17 19:09 WBC RBC Hgb Hct MCV MCH MCHC RDW Plt Count MPV Neut % (Auto) Lymph % (Auto) [place] % (Auto) Eos % (Auto) Baso % (Auto) Neut # Lymph # [place] # Eos # Baso # Neutrophils % (Manual) Band Neutrophils % Lymphocytes % (Manual) Monocytes % (Manual) Platelet Estimate Plt Clumps, EDTA PT INR APTT pO2 VBG pH VBG pCO2 VBG HCO3 VBG Total CO2 VBG O2 Sat (Calc) VBG Base Excess VBG Potassium Sodium Chloride Glucose Lactate Crit Value Called To Crit Value Called By Crit Value Read Back Blood Gas Notified Time Potassium Carbon Dioxide Anion Gap BUN Creatinine Est GFR ( Amer) Est GFR (Non-Af Amer) Random Glucose Calcium Phosphorus Magnesium Total Bilirubin AST ALT Alkaline Phosphatase Total Creatine Kinase CK-MB (Mass) Troponin I, Quant Total Protein Albumin Globulin Albumin/Globulin Ratio Lipase Procalcitonin Venous Blood Potassium Urine Color Urine Clarity Urine pH Ur Specific [place] Urine Protein Urine Glucose (UA) Urine Ketones Urine Blood Urine Nitrate Urine Bilirubin Urine Urobilinogen Ur Leukocyte Esterase Urine WBC (Auto) Urine RBC (Auto) Ur Squamous Epith Cells Urine Bacteria Blood Type A POSITIVE Antibody Screen Negative
[2017-08-10] MEDS ORDERED: Rocuronium 10 mg/ml (5 ml) ONE (20:47)
--- NOTE | 2017-08-10 21:17 | PCM.SURG1 ---
Surgeon's Initial Post Op Note - Surgeon's Notes Surgeon: Dr Ceja Ends Down Checker: Dr Maki PGY3, Dr Parsons PGY1 Type of Anesthesia: General Endo Anesthesia Administered By: Dr Callejas, Dr Boogie Pre-Operative Diagnosis: small bowel obstruction, sepsis Operative Findings: see report for full detail. - significant intra-abdominal adhesions surrounding ileo-sigmoid anastomosis Post-Operative Diagnosis: sbo 2/2 adhesions Operation Performed: exploratory laparotomy. lysis of adhesions. primary repair of ventral hernia. excision of ossified granuloma of abdominal wall Specimen/Specimens Removed: ossified granuloma Estimated Blood Loss: EBL {In ML}: 150 Blood Products Given: N/A Drains Used: No Drains Post-Op Condition: Fair (t) Date of Surgery/Procedure: 08/10/17 Time of Surgery/Procedure: 21:17
[2017-08-10] MEDS ORDERED: Sodium Chloride 0.9% 1,000 ML IV SCH ×2 (21:30→22:00)
[2017-08-10] MEDS ORDERED: Propofol 10 mg/ml 1,000 MG/100 ML VIAL IV PRN (21:58)
[2017-08-10] MEDS: Sodium Chloride 0.9% 1,000 ML IV SCH (22:28)
[2017-08-10 22:43] LABS: ABG MECHANICAL RATE 10; ARTERIAL BLOOD GAS MODE PRVC; ATERIAL BLOOD GAS PEEP 5; DRAW SITE ALINE
[2017-08-10 22:51] LABS: BASO # 0.1 K/uL (0.0-0.2); BASO % 0.5 % (0.0-2.0); HEMATOCRIT 40.5 % (35.0-51.0); LYMPH # 0.9 K/uL (1.0-4.3); LYMPH % 3.7 % (20.0-40.0); MEAN CELL VOLUME 92.7 fL (80.0-94.0); MEAN CORPUSCULAR HEMOGLOBIN 30.3 pg (27.0-31.0); MEAN CORPUSCULAR HGB CONC 32.7 g/dL (33.0-37.0); MEAN PLATELET VOLUME 8.9 fL (7.2-11.7); MONO # 1.3 K/uL (0.0-0.8); MONO % 5.2 % (0.0-10.0); NRBC % 0.2 % (0.0-2.0); PLATELET COUNT 329 K/uL (130-400); RED CELL DISTRIBUTION WIDTH 13.8 % (11.5-14.5); WHITE BLOOD COUNT 25.2 K/uL (4.8-10.8)
[2017-08-10 23:03] LABS: BILIRUBIN,TOTAL 2.4 mg/dL (0.2-1.3)
[2017-08-10 23:04] LABS: ALB/GLOB RATIO 1.2 (1.0-2.1); CALCIUM 7.5 mg/dl (8.6-10.4); PHOSPHOROUS 4.3 mg/dL (2.5-4.5); TOTAL PROTEIN 5.1 g/dL (6.3-8.3)
[2017-08-10] MEDS: Albumin Human 25% (12.5 gm/50 ml) IV SCH (23:07)
[2017-08-10] MEDS ORDERED: Phenylephrine 30 MG in Sodium Chloride 0.9% 250 ML IV PRN (23:40)
[2017-08-10 23:47] LABS: NEUTROPHIL 94 % (50-75); TOTAL CELLS COUNTED 100
[2017-08-11] MEDS ORDERED: Sodium Chloride 0.9% 250 ML IV ONE ×2 (00:33→07:15)
[2017-08-11] MEDS ORDERED: Digoxin 500 mcg/2ml (0.5 mg/2ml) Inj IVP ONE (01:17)
--- NOTE | 2017-08-11 03:21 | OP ---
PROCEDURE DATE: 08/10/2017 PREOPERATIVE DIAGNOSIS: Intestinal obstruction, incarcerated ventral hernia. PROCEDURE PERFORMED: Exploratory laparotomy, lysis of adhesions, excision of large ossified mass on the anterior abdominal wall and repair of the hernia. FINDINGS OF SURGERY: On the anterior abdominal wall on the mid-epigastric area, there is a huge, firm, hard mass that felt like bony structure. There is no defect on the fascia at this level. Lower down around the area of the umbilicus, there is a fascial defect with an incarcerated small bowel. This is probably the cause of the obstruction. Inside the abdomen, a tremendous amount of bowel dilation was noted and a tremendous amount, two adhesions noted within the peritoneal cavity. The adhesions involved the small bowel and anterior abdominal wall with no area of relief during the expiration. DESCRIPTION OF PROCEDURE: Under general anesthesia, the patient was prepared and draped in the usual sterile fashion. An incision was made over the old scar from just below the xiphoid process to the umbilicus. The dissection was carried all the way down to the hard ossified structure on the anterior abdominal wall down to the area of the ventral hernia by the umbilicus. The sac was then from the subcutaneous tissue and also from the skin of the umbilicus. At this point, we were unconvinced that this hernia was the cause of the obstruction. Therefore, the peritoneal cavity was entered, carefully dissecting all the adherent structures mostly small bowel both laterally, superiorly and inferiorly. This was difficult test because of the denseness of the adhesions that were noted. However, with some persistence, we were able to mobilize the incarcerated small bowel and the dilated portion was traced down to a smaller nondilated portion which is around the area of the terminal ileum very close to the ileosigmoid anastomosis. The anastomosis appears to be patent, though the sigmoid is still slightly dilated. All the adhesions were taken down with sharp and blunt dissection until most of the adhesions were freed and the small bowel was freed of the adhesions. The area was irrigated again with a large amount of saline solution and chlorhexidine and was then suctioned out. The abdomen was then closed utilizing a double strength #1 PDS to close in one layer starting from the top to bottom portion of the extra skin was then excised and the wound was then closed utilizing 3-0 Vicryl for the subcutaneous tissue and multiple katelin for the skin. Estimated blood loss was probably approximated to about 150 mL. The patient tolerated the procedure well; left the operating room in good condition. Porter Ceja MD
[2017-08-11 05:19] LABS: ABG MECHANICAL RATE 20; ARTERIAL BLOOD GAS MODE PRVC; ATERIAL BLOOD GAS PEEP 5; DRAW SITE ALINE
[2017-08-11] MEDS: Albumin Human 25% (12.5 gm/50 ml) IV SCH ×3 (05:34→21:53)
[2017-08-11] MEDS: Piperacill/Tazo 2.25gm in Dex 2.25 GM/50 ML BAG IVPB SCH ×3 (05:37→18:30)
[2017-08-11 06:01] LABS: BASO # 0.1 K/uL (0.0-0.2); BASO % 0.4 % (0.0-2.0); HEMATOCRIT 36.5 % (35.0-51.0); LYMPH # 0.5 K/uL (1.0-4.3); LYMPH % 2.8 % (20.0-40.0); MEAN CELL VOLUME 92.9 fL (80.0-94.0); MEAN CORPUSCULAR HEMOGLOBIN 31.2 pg (27.0-31.0); MEAN CORPUSCULAR HGB CONC 33.6 g/dL (33.0-37.0); MONO # 1.3 K/uL (0.0-0.8); MONO % 6.6 % (0.0-10.0); PLATELET COUNT 202 K/uL (130-400); WHITE BLOOD COUNT 19.2 K/uL (4.8-10.8)
[2017-08-11 06:54] LABS: POTASSIUM 4.5 mmol/L (3.6-5.2)
[2017-08-11 06:56] LABS: ALB/GLOB RATIO 0.9 (1.0-2.1); BILIRUBIN,TOTAL 2.7 mg/dL (0.2-1.3); PHOSPHOROUS 3.6 mg/dL (2.5-4.5); TOTAL PROTEIN 5.8 g/dL (6.3-8.3)
[2017-08-11 06:57] LABS: CALCIUM 7.8 mg/dl (8.6-10.4); MAGNESIUM 2.2 mg/dL (1.6-2.3)
--- NOTE | 2017-08-11 07:28 | CP.CCUPN ---
<Rachel Heart - Last Filed: 08/11/17 17:26> CCU Subjective - Physician Review Subjective (Free Text): Patient seen and examined at bedside. Patient is POD # 1 ex-lap with ROMAIN, removal of ossified granuloma and ventral hernia repair. Pt under sedation and intubated, ROS unobtainable at this time. CCU Objective - Vital Signs / Intake & Output Intake and Output (Last 8hrs): Intake & Output 08/10/17 08/11/17 08/11/17 22:59 06:59 14:59 Intake Total 803 1738 Output Total 1140 190 Balance -337 1548 Intake: IV 2 140 Intake, IV Amount 801 1598 Left Antecubital 66 48 Left Distal Port 425 Antecubital Left Hand 300 1400 Left Proximal Port Hand 10 90 Right Antecubital 0 60 Output: Gastric Amount 400 0 Nares 400 0 Urine 740 190 Urethral (Wall) 190 190 Urine, Voided 400 - Physical Exam Head: Positive for: Atraumatic, Normocephalic Pupils: Positive for: PERRL Conjunctiva: Positive for: Normal Mouth: Positive for: Moist Mucous Membranes Respiratory/Chest: Positive for: Clear to Auscultation, Good Air Exchange Cardiovascular: Positive for: Normal S1, S2, Tachycardic Abdomen: Positive for: Other (c/d/i dressing over incision ) Lower Extremity: Positive for: Swelling, Erythema Skin: Positive for: Warm, Erythematous, Other (b/l cellulitic changes ) Psychiatric: Positive for: Alert - Medications Active Medications: Active Medications Generic Name Dose Route Start Last Admin Trade Name Freq PRN Reason Stop Dose Admin Acetaminophen 650 mg 08/11/17 01:17 Tylenol 650 Mg Supp TX Q6 PRN Temperature Albumin Human 12.5 gm 08/10/17 23:00 08/11/17 05:34 Albumin Human 25% (12.5 Gm/50 Ml) IV 08/12/17 23:01 12.5 gm Q8 KARAN Administration Heparin Sodium (Porcine) 5,000 units 08/10/17 19:00 08/10/17 22:52 Heparin SC Not Given Q12 KARAN Piperacillin Sod/Tazobactam Sod 2.25 gm in 50 mls @ 100 mls/hr 08/10/17 10:30 08/11/17 05:37 Zosyn 2.25 Gm Iv Premix IVPB 100 mls/hr Q6 KARAN Administration Fentanyl Citrate 2,500 mcg/ 250 mls @ 20.5 mls/hr 08/10/17 22:00 08/11/17 00: 00 Sodium Chloride IV 1 mcg/kg/hr .[id number] KARAN 10.25 mls/hr Protocol Titration 2 MCG/KG/HR Propofol 1,000 mg in 100 mls @ 3.075 mls/hr 08/10/17 21:58 08/10/17 22:30 Diprivan IV 10 mcg/kg/min .Q24H PRN 6.151 mls/hr TITRATE PER MD ORDER Titration Protocol 5 MCG/KG/MIN Sodium Chloride 1,000 mls @ 150 mls/hr 08/10/17 22:01 08/11/17 05:42 Sodium Chloride 0.9% IV 150 mls/hr .[id number] KARAN Administration Phenylephrine HCl 30 mg/ 253 mls @ 10.12 mls/hr 08/10/17 23:40 08/11/17 06:39 Sodium Chloride IV 0 mcg/min .Q24H PRN 0 mls/hr TITRATE PER MD ORDER Titration Protocol 20 MCG/MIN Pantoprazole Sodium 40 mg 08/10/17 10:00 08/10/17 09:32 Protonix Inj IVP 40 mg DAILY KARAN Administration - Patient Studies Lab Studies: Microbiology Studies 08/10/17 09:00 Gram Stain - Final Leg - Left Lab Studies 08/11/17 08/11/17 08/10/17 Range/Units 05:43 05:04 22:46 WBC 19.2 H (4.8-10.8) K/uL RBC 3.93 L (4.40-5.90) Mil/uL Hgb 12.3 (12.0-18.0) g/dL Hct 36.5 (35.0-51.0) % MCV 92.9 (80.0-94.0) fL MCH 31.2 H (27.0-31.0) pg MCHC 33.6 (33.0-37.0) g/dL RDW 14.0 (11.5-14.5) % Plt Count 202 D (130-400) K/uL MPV 9.0 (7.2-11.7) fL Neut % (Auto) 90.2 H (50.0-75.0) % Lymph % (Auto) 2.8 L (20.0-40.0) % Nolan % (Auto) 6.6 (0.0-10.0) % Eos % (Auto) 0.0 (0.0-4.0) % Baso % (Auto) 0.4 (0.0-2.0) % Neut # 17.3 H (1.8-7.0) K/uL Lymph # 0.5 L (1.0-4.3) K/uL Nolan # 1.3 H (0.0-0.8) K/uL Eos # 0.0 (0.0-0.7) K/uL Baso # 0.1 (0.0-0.2) K/uL Neutrophils % (Manual) (50-75) % Band Neutrophils % (0-2) % Lymphocytes % (Manual) (20-40) % Monocytes % (Manual) (0-10) % Platelet Estimate (NORMAL) Plt Clumps, EDTA PT (9.7-12.2) SECONDS INR APTT (21-34) SECONDS Puncture Site [place] pCO2 38 (35-45) mm/Hg pO2 105 H (30-55) mm/Hg HCO3 22.7 (21-28) mmol/L ABG pH 7.37 (7.35-7.45) ABG Total CO2 23.2 (22-28) mmol/L ABG O2 Saturation 99.3 H (95-98) % ABG Base Excess -2.9 L (-2.0-3.0) mmol/L [place] Test Na ABG Potassium 5.0 (3.6-5.2) mmol/L VBG pH (7.32-7.43) VBG pCO2 (40-60) mmHg VBG HCO3 mmol/L VBG Total CO2 (22-28) mmol/L VBG O2 Sat (Calc) (40-65) % VBG Base Excess (0.0-2.0) mmol/L VBG Potassium (3.6-5.2) mmol/L A-a O2 Difference 275.0 mm/Hg Respiratory Index 2.6 Sodium 132.0 128 L (132-148) mmol/l Chloride 106.0 101 (98-107) mmol/L Glucose 221 H (75-110) mg/dl Lactate 1.2 (0.7-2.1) mmol/L Vent Mode Prvc Mechanical Rate 20 FiO2 60.0 % Tidal Volume 500 PEEP 5 Potassium 4.0 (3.6-5.2) mmol/L Carbon Dioxide 18 L (22-30) mmol/L Anion Gap 13 (10-20) BUN 60 H (9-20) mg/dL Creatinine 1.4 (0.8-1.5) mg/dL Est GFR ( Amer) 60 Est GFR (Non-Af Amer) 50 Random Glucose 217 H (75-110) mg/dL Calcium 7.5 L (8.6-10.4) mg/dl Phosphorus 4.3 (2.5-4.5) mg/dL Magnesium 2.0 (1.6-2.3) mg/dL Total Bilirubin 2.4 H (0.2-1.3) mg/dL AST 22 (17-59) U/L ALT 36 (21-72) U/L Alkaline Phosphatase 60 (38-126) U/L Total Creatine Kinase (55-170) U/L CK-MB (Mass) (0.0-3.38) ng/mL Troponin I, Quant (0.00-0.120) ng/mL Total Protein 5.1 L (6.3-8.3) g/dL Albumin 2.8 L D (3.5-5.0) g/dL Globulin 2.3 (2.2-3.9) gm/dL Albumin/Globulin Ratio 1.2 (1.0-2.1) Lipase 246 (23-300) U/L Procalcitonin (0.19-0.49) NG/ML Arterial Blood Potassium 5.0 (3.6-5.2) mmol/L Venous Blood Potassium (3.6-5.2) mmol/L Urine Color (YELLOW) Urine Clarity (Clear) Urine pH (5.0-8.0) Ur Specific [place] (1.003-1.030) Urine Protein (NEGATIVE) mg/dL Urine Glucose (UA) (Normal) mg/dL Urine Ketones (NEGATIVE) mg/dL Urine Blood (NEGATIVE) Urine Nitrate (NEGATIVE) Urine Bilirubin (NEGATIVE) Urine Urobilinogen (0.2-1.0) mg/dL Ur Leukocyte Esterase (Negative) Grady/uL Urine WBC (Auto) (0-5) /hpf Urine RBC (Auto) (0-3) /hpf Ur Squamous Epith Cells (0-5) /hpf Urine Bacteria (<OCC) Blood Type Antibody Screen 08/10/17 08/10/17 08/10/17 Range/Units 22:46 22:40 19:09 WBC 25.2 H (4.8-10.8) K/uL RBC 4.37 L (4.40-5.90) Mil/uL Hgb 13.2 D (12.0-18.0) g/dL Hct 40.5 (35.0-51.0) % MCV 92.7 (80.0-94.0) fL MCH 30.3 (27.0-31.0) pg MCHC 32.7 L (33.0-37.0) g/dL RDW 13.8 (11.5-14.5) % Plt Count 329 (130-400) K/uL MPV 8.9 (7.2-11.7) fL Neut % (Auto) 90.6 H (50.0-75.0) % Lymph % (Auto) 3.7 L (20.0-40.0) % Nolan % (Auto) 5.2 (0.0-10.0) % Eos % (Auto) 0.0 (0.0-4.0) % Baso % (Auto) 0.5 (0.0-2.0) % Neut # 22.8 H (1.8-7.0) K/uL Lymph # 0.9 L (1.0-4.3) K/uL Nolan # 1.3 H (0.0-0.8) K/uL Eos # 0.0 (0.0-0.7) K/uL Baso # 0.1 (0.0-0.2) K/uL Neutrophils % (Manual) 94 H (50-75) % Band Neutrophils % (0-2) % Lymphocytes % (Manual) 3 L (20-40) % Monocytes % (Manual) 3 (0-10) % Platelet Estimate Normal (NORMAL) Plt Clumps, EDTA PT (9.7-12.2) SECONDS INR APTT (21-34) SECONDS Puncture Site [place] pCO2 32 L (35-45) mm/Hg pO2 115 H (30-55) mm/Hg HCO3 19.6 L (21-28) mmol/L ABG pH 7.35 (7.35-7.45) ABG Total CO2 18.7 L (22-28) mmol/L ABG O2 Saturation 98.9 H (95-98) % ABG Base Excess -6.8 L (-2.0-3.0) mmol/L [place] Test Na ABG Potassium 3.7 (3.6-5.2) mmol/L VBG pH (7.32-7.43) VBG pCO2 (40-60) mmHg VBG HCO3 mmol/L VBG Total CO2 (22-28) mmol/L VBG O2 Sat (Calc) (40-65) % VBG Base Excess (0.0-2.0) mmol/L VBG Potassium (3.6-5.2) mmol/L A-a O2 Difference 273.0 mm/Hg Respiratory Index 2.4 Sodium 135.0 (132-148) mmol/l Chloride 108.0 H (98-107) mmol/L Glucose 230 H (75-110) mg/dl Lactate 1.5 (0.7-2.1) mmol/L Vent Mode Prvc Mechanical Rate 10 FiO2 60.0 % Tidal Volume 500 PEEP 5 Potassium (3.6-5.2) mmol/L Carbon Dioxide (22-30) mmol/L Anion Gap (10-20) BUN (9-20) mg/dL Creatinine (0.8-1.5) mg/dL Est GFR ( Amer) Est GFR (Non-Af Amer) Random Glucose (75-110) mg/dL Calcium (8.6-10.4) mg/dl Phosphorus (2.5-4.5) mg/dL Magnesium (1.6-2.3) mg/dL Total Bilirubin (0.2-1.3) mg/dL AST (17-59) U/L ALT (21-72) U/L Alkaline Phosphatase (38-126) U/L Total Creatine Kinase (55-170) U/L CK-MB (Mass) (0.0-3.38) ng/mL Troponin I, Quant (0.00-0.120) ng/mL Total Protein (6.3-8.3) g/dL Albumin (3.5-5.0) g/dL Globulin (2.2-3.9) gm/dL Albumin/Globulin Ratio (1.0-2.1) Lipase (23-300) U/L Procalcitonin (0.19-0.49) NG/ML Arterial Blood Potassium 3.7 (3.6-5.2) mmol/L Venous Blood Potassium (3.6-5.2) mmol/L Urine Color (YELLOW) Urine Clarity (Clear) Urine pH (5.0-8.0) Ur Specific [place] (1.003-1.030) Urine Protein (NEGATIVE) mg/dL Urine Glucose (UA) (Normal) mg/dL Urine Ketones (NEGATIVE) mg/dL Urine Blood (NEGATIVE) Urine Nitrate (NEGATIVE) Urine Bilirubin (NEGATIVE) Urine Urobilinogen (0.2-1.0) mg/dL Ur Leukocyte Esterase (Negative) Grady/uL Urine WBC (Auto) (0-5) /hpf Urine RBC (Auto) (0-3) /hpf Ur Squamous Epith Cells (0-5) /hpf Urine Bacteria (<OCC) Blood Type A POSITIVE Antibody Screen Negative 08/10/17 08/10/17 08/10/17 Range/Units 15:43 11:20 09:23 WBC (4.8-10.8) K/uL RBC (4.40-5.90) Mil/uL Hgb (12.0-18.0) g/dL Hct (35.0-51.0) % MCV (80.0-94.0) fL MCH (27.0-31.0) pg MCHC (33.0-37.0) g/dL RDW (11.5-14.5) % Plt Count (130-400) K/uL MPV (7.2-11.7) fL Neut % (Auto) (50.0-75.0) % Lymph % (Auto) (20.0-40.0) % Nolan % (Auto) (0.0-10.0) % Eos % (Auto) (0.0-4.0) % Baso % (Auto) (0.0-2.0) % Neut # (1.8-7.0) K/uL Lymph # (1.0-4.3) K/uL Nolan # (0.0-0.8) K/uL Eos # (0.0-0.7) K/uL Baso # (0.0-0.2) K/uL Neutrophils % (Manual) (50-75) % Band Neutrophils % (0-2) % Lymphocytes % (Manual) (20-40) % Monocytes % (Manual) (0-10) % Platelet Estimate (NORMAL) Plt Clumps, EDTA PT (9.7-12.2) SECONDS INR APTT (21-34) SECONDS Puncture Site pCO2 (35-45) mm/Hg pO2 (30-55) mm/Hg HCO3 (21-28) mmol/L ABG pH (7.35-7.45) ABG Total CO2 (22-28) mmol/L ABG O2 Saturation (95-98) % ABG Base Excess (-2.0-3.0) mmol/L [place] Test ABG Potassium (3.6-5.2) mmol/L VBG pH (7.32-7.43) VBG pCO2 (40-60) mmHg VBG HCO3 mmol/L VBG Total CO2 (22-28) mmol/L VBG O2 Sat (Calc) (40-65) % VBG Base Excess (0.0-2.0) mmol/L VBG Potassium (3.6-5.2) mmol/L A-a O2 Difference mm/Hg Respiratory Index Sodium (132-148) mmol/l Chloride (98-107) mmol/L Glucose (75-110) mg/dl Lactate (0.7-2.1) mmol/L Vent Mode Mechanical Rate FiO2 % Tidal Volume PEEP Potassium (3.6-5.2) mmol/L Carbon Dioxide (22-30) mmol/L Anion Gap (10-20) BUN (9-20) mg/dL Creatinine (0.8-1.5) mg/dL Est GFR ( Amer) Est GFR (Non-Af Amer) Random Glucose (75-110) mg/dL Calcium (8.6-10.4) mg/dl Phosphorus (2.5-4.5) mg/dL Magnesium (1.6-2.3) mg/dL Total Bilirubin (0.2-1.3) mg/dL AST (17-59) U/L ALT (21-72) U/L Alkaline Phosphatase (38-126) U/L Total Creatine Kinase 85 (55-170) U/L CK-MB (Mass) 3.04 (0.0-3.38) ng/mL Troponin I, Quant 0.0260 (0.00-0.120) ng/mL Total Protein (6.3-8.3) g/dL Albumin (3.5-5.0) g/dL Globulin (2.2-3.9) gm/dL Albumin/Globulin Ratio (1.0-2.1) Lipase (23-300) U/L Procalcitonin 0.36 (0.19-0.49) NG/ML Arterial Blood Potassium (3.6-5.2) mmol/L Venous Blood Potassium (3.6-5.2) mmol/L Urine Color Yellow (YELLOW) Urine Clarity Hazy (Clear) Urine pH 5.0 (5.0-8.0) Ur Specific [place] 1.018 (1.003-1.030) Urine Protein Negative (NEGATIVE) mg/dL Urine Glucose (UA) Normal (Normal) mg/dL Urine Ketones Negative (NEGATIVE) mg/dL Urine Blood Negative (NEGATIVE) Urine Nitrate Negative (NEGATIVE) Urine Bilirubin Negative (NEGATIVE) Urine Urobilinogen Normal (0.2-1.0) mg/dL Ur Leukocyte Esterase Trace (Negative) Grady/uL Urine WBC (Auto) 8 H (0-5) /hpf Urine RBC (Auto) 3 (0-3) /hpf Ur Squamous Epith Cells 9 H (0-5) /hpf Urine Bacteria Rare (<OCC) Blood Type Antibody Screen 08/10/17 08/10/17 08/10/17 Range/Units 08:29 05:54 05:54 WBC (4.8-10.8) K/uL RBC (4.40-5.90) Mil/uL Hgb (12.0-18.0) g/dL Hct (35.0-51.0) % MCV (80.0-94.0) fL MCH (27.0-31.0) pg MCHC (33.0-37.0) g/dL RDW (11.5-14.5) % Plt Count (130-400) K/uL MPV (7.2-11.7) fL Neut % (Auto) (50.0-75.0) % Lymph % (Auto) (20.0-40.0) % Nolan % (Auto) (0.0-10.0) % Eos % (Auto) (0.0-4.0) % Baso % (Auto) (0.0-2.0) % Neut # (1.8-7.0) K/uL Lymph # (1.0-4.3) K/uL Nolan # (0.0-0.8) K/uL Eos # (0.0-0.7) K/uL Baso # (0.0-0.2) K/uL Neutrophils % (Manual) 90 H (50-75) % Band Neutrophils % 1 (0-2) % Lymphocytes % (Manual) 4 L (20-40) % Monocytes % (Manual) 5 (0-10) % Platelet Estimate Normal (NORMAL) Plt Clumps, EDTA Present PT 11.9 (9.7-12.2) SECONDS INR 1.1 APTT 24 (21-34) SECONDS Puncture Site pCO2 (35-45) mm/Hg pO2 21 L (30-55) mm/Hg HCO3 (21-28) mmol/L ABG pH (7.35-7.45) ABG Total CO2 (22-28) mmol/L ABG O2 Saturation (95-98) % ABG Base Excess (-2.0-3.0) mmol/L [place] Test ABG Potassium (3.6-5.2) mmol/L VBG pH 7.34 (7.32-7.43) VBG pCO2 49 (40-60) mmHg VBG HCO3 23.1 mmol/L VBG Total CO2 27.9 (22-28) mmol/L VBG O2 Sat (Calc) 37.3 L (40-65) % VBG Base Excess 0.0 (0.0-2.0) mmol/L VBG Potassium 5.0 (3.6-5.2) mmol/L A-a O2 Difference mm/Hg Respiratory Index Sodium 131.0 L (132-148) mmol/l Chloride 99.0 (98-107) mmol/L Glucose 193 H (75-110) mg/dl Lactate 3.4 H (0.7-2.1) mmol/L Vent Mode Mechanical Rate FiO2 % Tidal Volume PEEP Potassium (3.6-5.2) mmol/L Carbon Dioxide (22-30) mmol/L Anion Gap (10-20) BUN (9-20) mg/dL Creatinine (0.8-1.5) mg/dL Est GFR ( Amer) Est GFR (Non-Af Amer) Random Glucose (75-110) mg/dL Calcium (8.6-10.4) mg/dl Phosphorus (2.5-4.5) mg/dL Magnesium (1.6-2.3) mg/dL Total Bilirubin (0.2-1.3) mg/dL AST (17-59) U/L ALT (21-72) U/L Alkaline Phosphatase (38-126) U/L Total Creatine Kinase (55-170) U/L CK-MB (Mass) (0.0-3.38) ng/mL Troponin I, Quant (0.00-0.120) ng/mL Total Protein (6.3-8.3) g/dL Albumin (3.5-5.0) g/dL Globulin (2.2-3.9) gm/dL Albumin/Globulin Ratio (1.0-2.1) Lipase (23-300) U/L Procalcitonin (0.19-0.49) NG/ML Arterial Blood Potassium (3.6-5.2) mmol/L Venous Blood Potassium 5.0 (3.6-5.2) mmol/L Urine Color (YELLOW) Urine Clarity (Clear) Urine pH (5.0-8.0) Ur Specific [place] (1.003-1.030) Urine Protein (NEGATIVE) mg/dL Urine Glucose (UA) (Normal) mg/dL Urine Ketones (NEGATIVE) mg/dL Urine Blood (NEGATIVE) Urine Nitrate (NEGATIVE) Urine Bilirubin (NEGATIVE) Urine Urobilinogen (0.2-1.0) mg/dL Ur Leukocyte Esterase (Negative) Grady/uL Urine WBC (Auto) (0-5) /hpf Urine RBC (Auto) (0-3) /hpf Ur Squamous Epith Cells (0-5) /hpf Urine Bacteria (<OCC) Blood Type Antibody Screen Laboratory Results - last 24 hr 08/10/17 08/10/17 08/10/17 05:54 05:54 08:29 WBC RBC Hgb Hct MCV MCH MCHC RDW Plt Count MPV Neut % (Auto) Lymph % (Auto) Nolan % (Auto) Eos % (Auto) Baso % (Auto) Neut # Lymph # Nolan # Eos # Baso # Neutrophils % (Manual) 90 H Band Neutrophils % 1 Lymphocytes % (Manual) 4 L Monocytes % (Manual) 5 Platelet Estimate Normal Plt Clumps, EDTA Present PT 11.9 INR 1.1 APTT 24 Puncture Site pCO2 pO2 21 L HCO3 ABG pH ABG Total CO2 ABG O2 Saturation ABG Base Excess [place] Test ABG Potassium VBG pH 7.34 VBG pCO2 49 VBG HCO3 23.1 VBG Total CO2 27.9 VBG O2 Sat (Calc) 37.3 L VBG Base Excess 0.0 VBG Potassium 5.0 A-a O2 Difference Respiratory Index Sodium 131.0 L Chloride 99.0 Glucose 193 H Lactate 3.4 H Vent Mode Mechanical Rate FiO2 Tidal Volume PEEP Potassium Carbon Dioxide Anion Gap BUN Creatinine Est GFR ( Amer) Est GFR (Non-Af Amer) Random Glucose Calcium Phosphorus Magnesium Total Bilirubin AST ALT Alkaline Phosphatase Total Creatine Kinase CK-MB (Mass) Troponin I, Quant Total Protein Albumin Globulin Albumin/Globulin Ratio Lipase Procalcitonin Arterial Blood Potassium Venous Blood Potassium 5.0 Urine Color Urine Clarity Urine pH Ur Specific [place] Urine Protein Urine Glucose (UA) Urine Ketones Urine Blood Urine Nitrate Urine Bilirubin Urine Urobilinogen Ur Leukocyte Esterase Urine WBC (Auto) Urine RBC (Auto) Ur Squamous Epith Cells Urine Bacteria Blood Type Antibody Screen 08/10/17 08/10/17 08/10/17 09:23 11:20 15:43 WBC RBC Hgb Hct MCV MCH MCHC RDW Plt Count MPV Neut % (Auto) Lymph % (Auto) Nolan % (Auto) Eos % (Auto) Baso % (Auto) Neut # Lymph # Nolan # Eos # Baso # Neutrophils % (Manual) Band Neutrophils % Lymphocytes % (Manual) Monocytes % (Manual) Platelet Estimate Plt Clumps, EDTA PT INR APTT Puncture Site pCO2 pO2 HCO3 ABG pH ABG Total CO2 ABG O2 Saturation ABG Base Excess [place] Test ABG Potassium VBG pH VBG pCO2 VBG HCO3 VBG Total CO2 VBG O2 Sat (Calc) VBG Base Excess VBG Potassium A-a O2 Difference Respiratory Index Sodium Chloride Glucose Lactate Vent Mode Mechanical Rate FiO2 Tidal Volume PEEP Potassium Carbon Dioxide Anion Gap BUN Creatinine Est GFR ( Amer) Est GFR (Non-Af Amer) Random Glucose Calcium Phosphorus Magnesium Total Bilirubin AST ALT Alkaline Phosphatase Total Creatine Kinase 85 CK-MB (Mass) 3.04 Troponin I, Quant 0.0260 Total Protein Albumin Globulin Albumin/Globulin Ratio Lipase Procalcitonin 0.36 Arterial Blood Potassium Venous Blood Potassium Urine Color Yellow Urine Clarity Hazy Urine pH 5.0 Ur Specific [place] 1.018 Urine Protein Negative Urine Glucose (UA) Normal Urine Ketones Negative Urine Blood Negative Urine Nitrate Negative Urine Bilirubin Negative Urine Urobilinogen Normal Ur Leukocyte Esterase Trace Urine WBC (Auto) 8 H Urine RBC (Auto) 3 Ur Squamous Epith Cells 9 H Urine Bacteria Rare Blood Type Antibody Screen 08/10/17 08/10/17 08/10/17 19:09 22:40 22:46 WBC 25.2 H RBC 4.37 L Hgb 13.2 D Hct 40.5 MCV 92.7 MCH 30.3 MCHC 32.7 L RDW 13.8 Plt Count 329 MPV 8.9 Neut % (Auto) 90.6 H Lymph % (Auto) 3.7 L Nolan % (Auto) 5.2 Eos % (Auto) 0.0 Baso % (Auto) 0.5 Neut # 22.8 H Lymph # 0.9 L Nolan # 1.3 H Eos # 0.0 Baso # 0.1 Neutrophils % (Manual) 94 H Band Neutrophils % Lymphocytes % (Manual) 3 L Monocytes % (Manual) 3 Platelet Estimate Normal Plt Clumps, EDTA PT INR APTT Puncture Site [place] pCO2 32 L pO2 115 H HCO3 19.6 L ABG pH 7.35 ABG Total CO2 18.7 L ABG O2 Saturation 98.9 H ABG Base Excess -6.8 L [place] Test Na ABG Potassium 3.7 VBG pH VBG pCO2 VBG HCO3 VBG Total CO2 VBG O2 Sat (Calc) VBG Base Excess VBG Potassium A-a O2 Difference 273.0 Respiratory Index 2.4 Sodium 135.0 Chloride 108.0 H Glucose 230 H Lactate 1.5 Vent Mode Prvc Mechanical Rate 10 FiO2 60.0 Tidal Volume 500 PEEP 5 Potassium Carbon Dioxide Anion Gap BUN Creatinine Est GFR ( Amer) Est GFR (Non-Af Amer) Random Glucose Calcium Phosphorus Magnesium Total Bilirubin AST ALT Alkaline Phosphatase Total Creatine Kinase CK-MB (Mass) Troponin I, Quant Total Protein Albumin Globulin Albumin/Globulin Ratio Lipase Procalcitonin Arterial Blood Potassium 3.7 Venous Blood Potassium Urine Color Urine Clarity Urine pH Ur Specific [place] Urine Protein Urine Glucose (UA) Urine Ketones Urine Blood Urine Nitrate Urine Bilirubin Urine Urobilinogen Ur Leukocyte Esterase Urine WBC (Auto) Urine RBC (Auto) Ur Squamous Epith Cells Urine Bacteria Blood Type A POSITIVE Antibody Screen Negative 08/10/17 08/11/17 08/11/17 22:46 05:04 05:43 WBC 19.2 H RBC 3.93 L Hgb 12.3 Hct 36.5 MCV 92.9 MCH 31.2 H MCHC 33.6 RDW 14.0 Plt Count 202 D MPV 9.0 Neut % (Auto) 90.2 H Lymph % (Auto) 2.8 L Nolan % (Auto) 6.6 Eos % (Auto) 0.0 Baso % (Auto) 0.4 Neut # 17.3 H Lymph # 0.5 L Nolan # 1.3 H Eos # 0.0 Baso # 0.1 Neutrophils % (Manual) Band Neutrophils % Lymphocytes % (Manual) Monocytes % (Manual) Platelet Estimate Plt Clumps, EDTA PT INR APTT Puncture Site Shanna pCO2 38 pO2 105 H HCO3 22.7 ABG pH 7.37 ABG Total CO2 23.2 ABG O2 Saturation 99.3 H ABG Base Excess -2.9 L [place] Test Na ABG Potassium 5.0 VBG pH VBG pCO2 VBG HCO3 VBG Total CO2 VBG O2 Sat (Calc) VBG Base Excess VBG Potassium A-a O2 Difference 275.0 Respiratory Index 2.6 Sodium 128 L 132.0 Chloride 101 106.0 Glucose 221 H Lactate 1.2 Vent Mode Prvc Mechanical Rate 20 FiO2 60.0 Tidal Volume 500 PEEP 5 Potassium 4.0 Carbon Dioxide 18 L Anion Gap 13 BUN 60 H Creatinine 1.4 Est GFR ( Amer) 60 Est GFR (Non-Af Amer) 50 Random Glucose 217 H Calcium 7.5 L Phosphorus 4.3 Magnesium 2.0 Total Bilirubin 2.4 H AST 22 ALT 36 Alkaline Phosphatase 60 Total Creatine Kinase CK-MB (Mass) Troponin I, Quant Total Protein 5.1 L Albumin 2.8 L D Globulin 2.3 Albumin/Globulin Ratio 1.2 Lipase 246 Procalcitonin Arterial Blood Potassium 5.0 Venous Blood Potassium Urine Color Urine Clarity Urine pH Ur Specific [place] Urine Protein Urine Glucose (UA) Urine Ketones Urine Blood Urine Nitrate Urine Bilirubin Urine Urobilinogen Ur Leukocyte Esterase Urine WBC (Auto) Urine RBC (Auto) Ur Squamous Epith Cells Urine Bacteria Blood Type Antibody Screen EKG/Cardiology Studies: Cardiology / EKG Studies 08/10/17 06:05 ELECTROCARDIOGRAM Stat Comment: Mode Of Transportation: Reason For Exam: Sepsis Patient 08/10/17 07:09 ELECTROCARDIOGRAM Stat Comment: Mode Of Transportation: Reason For Exam: Sepsis Patient 08/10/17 08:36 EKG [ELECTROCARDIOGRAM] Stat Comment: Mode Of Transportation: Reason For Exam: tachy Review of Systems - Review of Systems Systems not reviewed;Unavailable: Intubated Assessment/Plan - Assessment and Plan (Free Text) Assessment: 72 M presented to the ED 08/10 with constipation, nausea and vomiting and suspected sepsis. Now POD #1 ex-lap for SBO secondary to ventral hernia Neuro: Sedated but responsive to pain, name Management: - Propofol stopped - Decrease Fentanyl to 1mcg/kg/ for sedation and pain control Pulm: Intubated, saturating and ventilating well Diagnostic Data: - pO2 105 Management: - Weaning with CPAP in anticipation of extubation - FiO2 decreased to 40 Cardio: hemodynamically stable, atrial fibrillation Diagnostic Data: - 08/10 EKG showed atrial fibrillation - 08/10 Echo pending official read Management: - Dr. Henriquez consulted, help appreciated Nephro: hyponatremia, metabolic acidosis Diagnostic Data: - Sodium 130 - BUN/Cr: 58/1.4 - Metabolic acidosis adequately compensated by respiratory alkalosis Management: - Dr. Luna consulted, help appreciated - Holding NS because of worsening hyponatremia and adequate urine output GI: POD #1 ex-lap for SBO, incarcerated hernia repair Management: - Dr. Ceja consulted, help appreciated - NGT - Metoclopramide for n/v Endo: No acute issues Heme: No acute issues Diagnostic Data: - Platelets down to 202, thrombophilia resolved ID: Sepsis Diagnostic Data: - 08/11/17 WBC still elevated at 19.2 but trending down - Bands 7 - Lactate 0.9 - Awaiting 08/10 blood culture, urine culture and sputum culture results Management: - Zosyn Derm: lower extremity cellulitis Diagnostic Data: - 08/10 Preliminary culture results of left leg wound showed moderate gram negative rods and moderate gram positive cocci Management: - Wound care nurse consult PPX: Management: - Protonix 40mg IVP - Heparin 5000u SC Q12 <[email or web address] - Last Filed: 08/11/17 18:51> CCU Objective - Vital Signs / Intake & Output Vital Signs (Last 4 hours): Vital Signs Temp Pulse Resp BP Pulse Ox 08/11/17 18:11 124 H 13 91/47 L 96 08/11/17 17:10 124 H 13 106/49 L 97 08/11/17 16:10 133 H 13 111/50 L 97 08/11/17 16:00 98.6 F 08/11/17 15:18 131 H 15 114/49 L 97 Intake and Output (Last 8hrs): Intake & Output 08/11/17 08/11/17 08/11/17 06:59 14:59 22:59 Intake Total 1758 2898 950 Output Total 605 580 200 Balance 1153 2318 750 Weight 227 lb Intake: IV 140 220 Intake, IV Amount 1618 2898 730 Left Antecubital 24 Left Hand 1400 1200 600 Left Proximal Port Hand 90 130 80 Left Wrist 24 68 50 Right Antecubital 80 1500 Output: Gastric Amount 300 Nares 300 Urine 305 580 200 Urethral (Wall) 305 580 200 - Medications Active Medications: Active Medications Generic Name Dose Route Start Last Admin Trade Name Freq PRN Reason Stop Dose Admin Acetaminophen 650 mg 08/11/17 01:17 Tylenol 650 Mg Supp TX Q6 PRN Temperature Albumin Human 12.5 gm 08/10/17 23:00 08/11/17 13:53 Albumin Human 25% (12.5 Gm/50 Ml) IV 08/12/17 23:01 12.5 gm Q8 KARAN Administration Heparin Sodium (Porcine) 5,000 units 08/10/17 19:00 08/11/17 10:50 Heparin SC 5,000 units Q12 KARAN Administration Piperacillin Sod/Tazobactam Sod 2.25 gm in 50 mls @ 100 mls/hr 08/10/17 10:30 08/11/17 18:30 Zosyn 2.25 Gm Iv Premix IVPB 100 mls/hr Q6 KARAN Administration Fentanyl Citrate 2,500 mcg/ 250 mls @ 20.5 mls/hr 08/10/17 22:00 08/11/17 17: 15 Sodium Chloride IV 1 mcg/kg/hr .[id number] KARAN 10.25 mls/hr Protocol Administration 2 MCG/KG/HR Sodium Chloride 1,000 mls @ 150 mls/hr 08/10/17 22:01 08/11/17 18:27 Sodium Chloride 0.9% IV Not Given .[id number] KARAN Metoclopramide HCl 10 mg 08/11/17 11:15 08/11/17 18:27 Reglan IVP 10 mg Q6H KARAN Administration Pantoprazole Sodium 40 mg 08/10/17 10:00 08/11/17 10:50 Protonix Inj IVP 40 mg DAILY KARAN Administration - Patient Studies Lab Studies: Microbiology Studies 08/10/17 06:15 Blood Culture - Preliminary Blood NO GROWTH AFTER 24 HOURS 08/10/17 05:45 Blood Culture - Preliminary Blood NO GROWTH AFTER 24 HOURS 08/10/17 08:00 Gram Stain - Final Trachasp 08/10/17 11:30 MRSA Culture (Admit) - Final Naris MRSA NOT DETECTED 08/10/17 09:00 Gram Stain - Final Leg - Left Wound Culture - Preliminary Gram Negative Rafa Gram Positive Cocci Lab Studies 08/11/17 08/11/17 08/11/17 Range/Units 17:59 17:59 15:30 WBC (4.8-10.8) K/uL RBC (4.40-5.90) Mil/uL Hgb (12.0-18.0) g/dL Hct (35.0-51.0) % MCV (80.0-94.0) fL MCH (27.0-31.0) pg MCHC (33.0-37.0) g/dL RDW (11.5-14.5) % Plt Count (130-400) K/uL MPV (7.2-11.7) fL Neut % (Auto) (50.0-75.0) % Lymph % (Auto) (20.0-40.0) % Nolan % (Auto) (0.0-10.0) % Eos % (Auto) (0.0-4.0) % Baso % (Auto) (0.0-2.0) % Neut # (1.8-7.0) K/uL Lymph # (1.0-4.3) K/uL Nolan # (0.0-0.8) K/uL Eos # (0.0-0.7) K/uL Baso # (0.0-0.2) K/uL Neutrophils % (Manual) (50-75) % Band Neutrophils % (0-2) % Lymphocytes % (Manual) (20-40) % Monocytes % (Manual) (0-10) % Platelet Estimate (NORMAL) RBC Morphology Puncture Site pCO2 (35-45) mm/Hg pO2 (80-100) mm/Hg HCO3 (21-28) mmol/L ABG pH (7.35-7.45) ABG Total CO2 (22-28) mmol/L ABG O2 Saturation (95-98) % ABG Base Excess (-2.0-3.0) mmol/L [place] Test ABG Potassium (3.6-5.2) mmol/L A-a O2 Difference mm/Hg Respiratory Index Sodium (132-148) mmol/l Chloride (98-107) mmol/L Glucose (75-110) mg/dl Lactate (0.7-2.1) mmol/L Vent Mode Mechanical Rate FiO2 % Tidal Volume PEEP Pressure Support CPAP Crit Value Called To Crit Value Called By Crit Value Read Back Blood Gas Notified Time Potassium (3.6-5.2) mmol/L Carbon Dioxide (22-30) mmol/L Anion Gap (10-20) BUN (9-20) mg/dL Creatinine (0.8-1.5) mg/dL Est GFR ( Amer) Est GFR (Non-Af Amer) Random Glucose (75-110) mg/dL Hemoglobin A1c 7.2 H (4.2-6.5) % Calcium (8.6-10.4) mg/dl Phosphorus (2.5-4.5) mg/dL Magnesium (1.6-2.3) mg/dL Total Bilirubin (0.2-1.3) mg/dL AST (17-59) U/L ALT (21-72) U/L Alkaline Phosphatase (38-126) U/L Total Creatine Kinase 64 (55-170) U/L CK-MB (Mass) 1.57 (0.0-3.38) ng/mL Troponin I, Quant 0.0480 (0.00-0.120) ng/mL Total Protein (6.3-8.3) g/dL Albumin (3.5-5.0) g/dL Globulin (2.2-3.9) gm/dL Albumin/Globulin Ratio (1.0-2.1) Lipase (23-300) U/L TSH 3rd Generation 1.28 (0.46-4.68) mIU/L Arterial Blood Potassium (3.6-5.2) mmol/L Urine Color (YELLOW) Urine Clarity (Clear) Urine pH (5.0-8.0) Ur Specific [place] (1.003-1.030) Urine Protein (NEGATIVE) mg/dL Urine Glucose (UA) (Normal) mg/dL Urine Ketones (NEGATIVE) mg/dL Urine Blood (NEGATIVE) Urine Nitrate (NEGATIVE) Urine Bilirubin (NEGATIVE) Urine Urobilinogen (0.2-1.0) mg/dL Ur Leukocyte Esterase (Negative) Grady/uL Urine WBC (Auto) (0-5) /hpf Urine RBC (Auto) (0-3) /hpf Ur Squamous Epith Cells (0-5) /hpf Uric Acid Crystals (<OCC) /hpf Urine Bacteria (<OCC) U Random Total Protein 28.0 H Ur Random Sodium mmol/L Blood Type Antibody Screen 08/11/17 08/11/17 08/11/17 Range/Units 15:25 15:25 13:30 WBC (4.8-10.8) K/uL RBC (4.40-5.90) Mil/uL Hgb (12.0-18.0) g/dL Hct (35.0-51.0) % MCV (80.0-94.0) fL MCH (27.0-31.0) pg MCHC (33.0-37.0) g/dL RDW (11.5-14.5) % Plt Count (130-400) K/uL MPV (7.2-11.7) fL Neut % (Auto) (50.0-75.0) % Lymph % (Auto) (20.0-40.0) % Nolan % (Auto) (0.0-10.0) % Eos % (Auto) (0.0-4.0) % Baso % (Auto) (0.0-2.0) % Neut # (1.8-7.0) K/uL Lymph # (1.0-4.3) K/uL Nolan # (0.0-0.8) K/uL Eos # (0.0-0.7) K/uL Baso # (0.0-0.2) K/uL Neutrophils % (Manual) (50-75) % Band Neutrophils % (0-2) % Lymphocytes % (Manual) (20-40) % Monocytes % (Manual) (0-10) % Platelet Estimate (NORMAL) RBC Morphology Puncture Site Lb pCO2 33 L (35-45) mm/Hg pO2 100 (80-100) mm/Hg HCO3 20.3 L (21-28) mmol/L ABG pH 7.36 (7.35-7.45) ABG Total CO2 19.6 L (22-28) mmol/L ABG O2 Saturation 99.0 H (95-98) % ABG Base Excess -5.9 L (-2.0-3.0) mmol/L [place] Test Na ABG Potassium 3.8 (3.6-5.2) mmol/L A-a O2 Difference 144.0 mm/Hg Respiratory Index 1.4 Sodium 136.0 (132-148) mmol/l Chloride 111.0 H (98-107) mmol/L Glucose 167 H (75-110) mg/dl Lactate 0.9 (0.7-2.1) mmol/L Vent Mode Mechanical Rate FiO2 40.0 % Tidal Volume PEEP 5 Pressure Support 10 CPAP 5 Crit Value Called To Dr adrian Crit Value Called By Mane vivar [facility] Crit Value Read Back Y Blood Gas Notified Time 1345 Potassium (3.6-5.2) mmol/L Carbon Dioxide (22-30) mmol/L Anion Gap (10-20) BUN (9-20) mg/dL Creatinine (0.8-1.5) mg/dL Est GFR ( Amer) Est GFR (Non-Af Amer) Random Glucose (75-110) mg/dL Hemoglobin A1c (4.2-6.5) % Calcium (8.6-10.4) mg/dl Phosphorus (2.5-4.5) mg/dL Magnesium (1.6-2.3) mg/dL Total Bilirubin (0.2-1.3) mg/dL AST (17-59) U/L ALT (21-72) U/L Alkaline Phosphatase (38-126) U/L Total Creatine Kinase (55-170) U/L CK-MB (Mass) (0.0-3.38) ng/mL Troponin I, Quant (0.00-0.120) ng/mL Total Protein (6.3-8.3) g/dL Albumin (3.5-5.0) g/dL Globulin (2.2-3.9) gm/dL Albumin/Globulin Ratio (1.0-2.1) Lipase (23-300) U/L TSH 3rd Generation (0.46-4.68) mIU/L Arterial Blood Potassium 3.8 (3.6-5.2) mmol/L Urine Color Yellow (YELLOW) Urine Clarity Hazy (Clear) Urine pH 5.0 (5.0-8.0) Ur Specific [place] 1.020 (1.003-1.030) Urine Protein Negative (NEGATIVE) mg/dL Urine Glucose (UA) Normal (Normal) mg/dL Urine Ketones Negative (NEGATIVE) mg/dL Urine Blood 2+ H (NEGATIVE) Urine Nitrate Negative (NEGATIVE) Urine Bilirubin Negative (NEGATIVE) Urine Urobilinogen Normal (0.2-1.0) mg/dL Ur Leukocyte Esterase 3+ H (Negative) Grady/uL Urine WBC (Auto) 31 H (0-5) /hpf Urine RBC (Auto) 13 H (0-3) /hpf Ur Squamous Epith Cells < 1 (0-5) /hpf Uric Acid Crystals Rare (<OCC) /hpf Urine Bacteria Rare (<OCC) U Random Total Protein Cancelled Ur Random Sodium 35 mmol/L Blood Type Antibody Screen 08/11/17 08/11/17 08/11/17 Range/Units 05:43 05:43 05:04 WBC 19.2 H (4.8-10.8) K/uL RBC 3.93 L (4.40-5.90) Mil/uL Hgb 12.3 (12.0-18.0) g/dL Hct 36.5 (35.0-51.0) % MCV 92.9 (80.0-94.0) fL MCH 31.2 H (27.0-31.0) pg MCHC 33.6 (33.0-37.0) g/dL RDW 14.0 (11.5-14.5) % Plt Count 202 D (130-400) K/uL MPV 9.0 (7.2-11.7) fL Neut % (Auto) 90.2 H (50.0-75.0) % Lymph % (Auto) 2.8 L (20.0-40.0) % Nolan % (Auto) 6.6 (0.0-10.0) % Eos % (Auto) 0.0 (0.0-4.0) % Baso % (Auto) 0.4 (0.0-2.0) % Neut # 17.3 H (1.8-7.0) K/uL Lymph # 0.5 L (1.0-4.3) K/uL Nolan # 1.3 H (0.0-0.8) K/uL Eos # 0.0 (0.0-0.7) K/uL Baso # 0.1 (0.0-0.2) K/uL Neutrophils % (Manual) 80 H (50-75) % Band Neutrophils % 7 H (0-2) % Lymphocytes % (Manual) 3 L (20-40) % Monocytes % (Manual) 10 (0-10) % Platelet Estimate Normal (NORMAL) RBC Morphology Normal Puncture Site Shanna pCO2 38 (35-45) mm/Hg pO2 105 H (80-100) mm/Hg HCO3 22.7 (21-28) mmol/L ABG pH 7.37 (7.35-7.45) ABG Total CO2 23.2 (22-28) mmol/L ABG O2 Saturation 99.3 H (95-98) % ABG Base Excess -2.9 L (-2.0-3.0) mmol/L [place] Test Na ABG Potassium 5.0 (3.6-5.2) mmol/L A-a O2 Difference 275.0 mm/Hg Respiratory Index 2.6 Sodium 130 L 132.0 (132-148) mmol/l Chloride 104 106.0 (98-107) mmol/L Glucose 221 H (75-110) mg/dl Lactate 1.2 (0.7-2.1) mmol/L Vent Mode Prvc Mechanical Rate 20 FiO2 60.0 % Tidal Volume 500 PEEP 5 Pressure Support CPAP Crit Value Called To Crit Value Called By Crit Value Read Back Blood Gas Notified Time Potassium 4.5 (3.6-5.2) mmol/L Carbon Dioxide 18 L (22-30) mmol/L Anion Gap 13 (10-20) BUN 58 H (9-20) mg/dL Creatinine 1.4 (0.8-1.5) mg/dL Est GFR ( Amer) 60 Est GFR (Non-Af Amer) 50 Random Glucose 179 H (75-110) mg/dL Hemoglobin A1c (4.2-6.5) % Calcium 7.8 L (8.6-10.4) mg/dl Phosphorus 3.6 (2.5-4.5) mg/dL Magnesium 2.2 (1.6-2.3) mg/dL Total Bilirubin 2.7 H (0.2-1.3) mg/dL AST 23 (17-59) U/L ALT 32 (21-72) U/L Alkaline Phosphatase 53 (38-126) U/L Total Creatine Kinase (55-170) U/L CK-MB (Mass) (0.0-3.38) ng/mL Troponin I, Quant (0.00-0.120) ng/mL Total Protein 5.8 L (6.3-8.3) g/dL Albumin 2.8 L (3.5-5.0) g/dL Globulin 3.0 (2.2-3.9) gm/dL Albumin/Globulin Ratio 0.9 L (1.0-2.1) Lipase (23-300) U/L TSH 3rd Generation (0.46-4.68) mIU/L Arterial Blood Potassium 5.0 (3.6-5.2) mmol/L Urine Color (YELLOW) Urine Clarity (Clear) Urine pH (5.0-8.0) Ur Specific [place] (1.003-1.030) Urine Protein (NEGATIVE) mg/dL Urine Glucose (UA) (Normal) mg/dL Urine Ketones (NEGATIVE) mg/dL Urine Blood (NEGATIVE) Urine Nitrate (NEGATIVE) Urine Bilirubin (NEGATIVE) Urine Urobilinogen (0.2-1.0) mg/dL Ur Leukocyte Esterase (Negative) Grady/uL Urine WBC (Auto) (0-5) /hpf Urine RBC (Auto) (0-3) /hpf Ur Squamous Epith Cells (0-5) /hpf Uric Acid Crystals (<OCC) /hpf Urine Bacteria (<OCC) U Random Total Protein Ur Random Sodium mmol/L Blood Type Antibody Screen 08/10/17 08/10/17 08/10/17 Range/Units 22:46 22:46 22:40 WBC 25.2 H (4.8-10.8) K/uL RBC 4.37 L (4.40-5.90) Mil/uL Hgb 13.2 D (12.0-18.0) g/dL Hct 40.5 (35.0-51.0) % MCV 92.7 (80.0-94.0) fL MCH 30.3 (27.0-31.0) pg MCHC 32.7 L (33.0-37.0) g/dL RDW 13.8 (11.5-14.5) % Plt Count 329 (130-400) K/uL MPV 8.9 (7.2-11.7) fL Neut % (Auto) 90.6 H (50.0-75.0) % Lymph % (Auto) 3.7 L (20.0-40.0) % Nolan % (Auto) 5.2 (0.0-10.0) % Eos % (Auto) 0.0 (0.0-4.0) % Baso % (Auto) 0.5 (0.0-2.0) % Neut # 22.8 H (1.8-7.0) K/uL Lymph # 0.9 L (1.0-4.3) K/uL Nolan # 1.3 H (0.0-0.8) K/uL Eos # 0.0 (0.0-0.7) K/uL Baso # 0.1 (0.0-0.2) K/uL Neutrophils % (Manual) 94 H (50-75) % Band Neutrophils % (0-2) % Lymphocytes % (Manual) 3 L (20-40) % Monocytes % (Manual) 3 (0-10) % Platelet Estimate Normal (NORMAL) RBC Morphology Puncture Site Shanna pCO2 32 L (35-45) mm/Hg pO2 115 H (80-100) mm/Hg HCO3 19.6 L (21-28) mmol/L ABG pH 7.35 (7.35-7.45) ABG Total CO2 18.7 L (22-28) mmol/L ABG O2 Saturation 98.9 H (95-98) % ABG Base Excess -6.8 L (-2.0-3.0) mmol/L [place] Test Na ABG Potassium 3.7 (3.6-5.2) mmol/L A-a O2 Difference 273.0 mm/Hg Respiratory Index 2.4 Sodium 128 L 135.0 (132-148) mmol/l Chloride 101 108.0 H (98-107) mmol/L Glucose 230 H (75-110) mg/dl Lactate 1.5 (0.7-2.1) mmol/L Vent Mode Prvc Mechanical Rate 10 FiO2 60.0 % Tidal Volume 500 PEEP 5 Pressure Support CPAP Crit Value Called To Crit Value Called By Crit Value Read Back Blood Gas Notified Time Potassium 4.0 (3.6-5.2) mmol/L Carbon Dioxide 18 L (22-30) mmol/L Anion Gap 13 (10-20) BUN 60 H (9-20) mg/dL Creatinine 1.4 (0.8-1.5) mg/dL Est GFR ( Amer) 60 Est GFR (Non-Af Amer) 50 Random Glucose 217 H (75-110) mg/dL Hemoglobin A1c (4.2-6.5) % Calcium 7.5 L (8.6-10.4) mg/dl Phosphorus 4.3 (2.5-4.5) mg/dL Magnesium 2.0 (1.6-2.3) mg/dL Total Bilirubin 2.4 H (0.2-1.3) mg/dL AST 22 (17-59) U/L ALT 36 (21-72) U/L Alkaline Phosphatase 60 (38-126) U/L Total Creatine Kinase (55-170) U/L CK-MB (Mass) (0.0-3.38) ng/mL Troponin I, Quant (0.00-0.120) ng/mL Total Protein 5.1 L (6.3-8.3) g/dL Albumin 2.8 L D (3.5-5.0) g/dL Globulin 2.3 (2.2-3.9) gm/dL Albumin/Globulin Ratio 1.2 (1.0-2.1) Lipase 246 (23-300) U/L TSH 3rd Generation (0.46-4.68) mIU/L Arterial Blood Potassium 3.7 (3.6-5.2) mmol/L Urine Color (YELLOW) Urine Clarity (Clear) Urine pH (5.0-8.0) Ur Specific [place] (1.003-1.030) Urine Protein (NEGATIVE) mg/dL Urine Glucose (UA) (Normal) mg/dL Urine Ketones (NEGATIVE) mg/dL Urine Blood (NEGATIVE) Urine Nitrate (NEGATIVE) Urine Bilirubin (NEGATIVE) Urine Urobilinogen (0.2-1.0) mg/dL Ur Leukocyte Esterase (Negative) Grady/uL Urine WBC (Auto) (0-5) /hpf Urine RBC (Auto) (0-3) /hpf Ur Squamous Epith Cells (0-5) /hpf Uric Acid Crystals (<OCC) /hpf Urine Bacteria (<OCC) U Random Total Protein Ur Random Sodium mmol/L Blood Type Antibody Screen 08/10/17 Range/Units 19:09 WBC (4.8-10.8) K/uL RBC (4.40-5.90) Mil/uL Hgb (12.0-18.0) g/dL Hct (35.0-51.0) % MCV (80.0-94.0) fL MCH (27.0-31.0) pg MCHC (33.0-37.0) g/dL RDW (11.5-14.5) % Plt Count (130-400) K/uL MPV (7.2-11.7) fL Neut % (Auto) (50.0-75.0) % Lymph % (Auto) (20.0-40.0) % Nolan % (Auto) (0.0-10.0) % Eos % (Auto) (0.0-4.0) % Baso % (Auto) (0.0-2.0) % Neut # (1.8-7.0) K/uL Lymph # (1.0-4.3) K/uL Nolan # (0.0-0.8) K/uL Eos # (0.0-0.7) K/uL Baso # (0.0-0.2) K/uL Neutrophils % (Manual) (50-75) % Band Neutrophils % (0-2) % Lymphocytes % (Manual) (20-40) % Monocytes % (Manual) (0-10) % Platelet Estimate (NORMAL) RBC Morphology Puncture Site pCO2 (35-45) mm/Hg pO2 (80-100) mm/Hg HCO3 (21-28) mmol/L ABG pH (7.35-7.45) ABG Total CO2 (22-28) mmol/L ABG O2 Saturation (95-98) % ABG Base Excess (-2.0-3.0) mmol/L [place] Test ABG Potassium (3.6-5.2) mmol/L A-a O2 Difference mm/Hg Respiratory Index Sodium (132-148) mmol/l Chloride (98-107) mmol/L Glucose (75-110) mg/dl Lactate (0.7-2.1) mmol/L Vent Mode Mechanical Rate FiO2 % Tidal Volume PEEP Pressure Support CPAP Crit Value Called To Crit Value Called By Crit Value Read Back Blood Gas Notified Time Potassium (3.6-5.2) mmol/L Carbon Dioxide (22-30) mmol/L Anion Gap (10-20) BUN (9-20) mg/dL Creatinine (0.8-1.5) mg/dL Est GFR ( Amer) Est GFR (Non-Af Amer) Random Glucose (75-110) mg/dL Hemoglobin A1c (4.2-6.5) % Calcium (8.6-10.4) mg/dl Phosphorus (2.5-4.5) mg/dL Magnesium (1.6-2.3) mg/dL Total Bilirubin (0.2-1.3) mg/dL AST (17-59) U/L ALT (21-72) U/L Alkaline Phosphatase (38-126) U/L Total Creatine Kinase (55-170) U/L CK-MB (Mass) (0.0-3.38) ng/mL Troponin I, Quant (0.00-0.120) ng/mL Total Protein (6.3-8.3) g/dL Albumin (3.5-5.0) g/dL Globulin (2.2-3.9) gm/dL Albumin/Globulin Ratio (1.0-2.1) Lipase (23-300) U/L TSH 3rd Generation (0.46-4.68) mIU/L Arterial Blood Potassium (3.6-5.2) mmol/L Urine Color (YELLOW) Urine Clarity (Clear) Urine pH (5.0-8.0) Ur Specific [place] (1.003-1.030) Urine Protein (NEGATIVE) mg/dL Urine Glucose (UA) (Normal) mg/dL Urine Ketones (NEGATIVE) mg/dL Urine Blood (NEGATIVE) Urine Nitrate (NEGATIVE) Urine Bilirubin (NEGATIVE) Urine Urobilinogen (0.2-1.0) mg/dL Ur Leukocyte Esterase (Negative) Grady/uL Urine WBC (Auto) (0-5) /hpf Urine RBC (Auto) (0-3) /hpf Ur Squamous Epith Cells (0-5) /hpf Uric Acid Crystals (<OCC) /hpf Urine Bacteria (<OCC) U Random Total Protein Ur Random Sodium mmol/L Blood Type A POSITIVE Antibody Screen Negative Laboratory Results - last 24 hr 08/10/17 08/10/17 08/10/17 19:09 22:40 22:46 WBC 25.2 H RBC 4.37 L Hgb 13.2 D Hct 40.5 MCV 92.7 MCH 30.3 MCHC 32.7 L RDW 13.8 Plt Count 329 MPV 8.9 Neut % (Auto) 90.6 H Lymph % (Auto) 3.7 L Nolan % (Auto) 5.2 Eos % (Auto) 0.0 Baso % (Auto) 0.5 Neut # 22.8 H Lymph # 0.9 L Nolan # 1.3 H Eos # 0.0 Baso # 0.1 Neutrophils % (Manual) 94 H Band Neutrophils % Lymphocytes % (Manual) 3 L Monocytes % (Manual) 3 Platelet Estimate Normal RBC Morphology Puncture Site [place] pCO2 32 L pO2 115 H HCO3 19.6 L ABG pH 7.35 ABG Total CO2 18.7 L ABG O2 Saturation 98.9 H ABG Base Excess -6.8 L [place] Test Na ABG Potassium 3.7 A-a O2 Difference 273.0 Respiratory Index 2.4 Sodium 135.0 Chloride 108.0 H Glucose 230 H Lactate 1.5 Vent Mode Prvc Mechanical Rate 10 FiO2 60.0 Tidal Volume 500 PEEP 5 Pressure Support CPAP Crit Value Called To Crit Value Called By Crit Value Read Back Blood Gas Notified Time Potassium Carbon Dioxide Anion Gap BUN Creatinine Est GFR ( Amer) Est GFR (Non-Af Amer) Random Glucose Hemoglobin A1c Calcium Phosphorus Magnesium Total Bilirubin AST ALT Alkaline Phosphatase Total Creatine Kinase CK-MB (Mass) Troponin I, Quant Total Protein Albumin Globulin Albumin/Globulin Ratio Lipase TSH 3rd Generation Arterial Blood Potassium 3.7 Urine Color Urine Clarity Urine pH Ur Specific [place] Urine Protein Urine Glucose (UA) Urine Ketones Urine Blood Urine Nitrate Urine Bilirubin Urine Urobilinogen Ur Leukocyte Esterase Urine WBC (Auto) Urine RBC (Auto) Ur Squamous Epith Cells Uric Acid Crystals Urine Bacteria U Random Total Protein Ur Random Sodium Blood Type A POSITIVE Antibody Screen Negative 08/10/17 08/11/17 08/11/17 22:46 05:04 05:43 WBC 19.2 H RBC 3.93 L Hgb 12.3 Hct 36.5 MCV 92.9 MCH 31.2 H MCHC 33.6 RDW 14.0 Plt Count 202 D MPV 9.0 Neut % (Auto) 90.2 H Lymph % (Auto) 2.8 L Nolan % (Auto) 6.6 Eos % (Auto) 0.0 Baso % (Auto) 0.4 Neut # 17.3 H Lymph # 0.5 L Nolan # 1.3 H Eos # 0.0 Baso # 0.1 Neutrophils % (Manual) 80 H Band Neutrophils % 7 H Lymphocytes % (Manual) 3 L Monocytes % (Manual) 10 Platelet Estimate Normal RBC Morphology Normal Puncture Site [place] pCO2 38 pO2 105 H HCO3 22.7 ABG pH 7.37 ABG Total CO2 23.2 ABG O2 Saturation 99.3 H ABG Base Excess -2.9 L [place] Test Na ABG Potassium 5.0 A-a O2 Difference 275.0 Respiratory Index 2.6 Sodium 128 L 132.0 Chloride 101 106.0 Glucose 221 H Lactate 1.2 Vent Mode Prvc Mechanical Rate 20 FiO2 60.0 Tidal Volume 500 PEEP 5 Pressure Support CPAP Crit Value Called To Crit Value Called By Crit Value Read Back Blood Gas Notified Time Potassium 4.0 Carbon Dioxide 18 L Anion Gap 13 BUN 60 H Creatinine 1.4 Est GFR ( Amer) 60 Est GFR (Non-Af Amer) 50 Random Glucose 217 H Hemoglobin A1c Calcium 7.5 L Phosphorus 4.3 Magnesium 2.0 Total Bilirubin 2.4 H AST 22 ALT 36 Alkaline Phosphatase 60 Total Creatine Kinase CK-MB (Mass) Troponin I, Quant Total Protein 5.1 L Albumin 2.8 L D Globulin 2.3 Albumin/Globulin Ratio 1.2 Lipase 246 TSH 3rd Generation Arterial Blood Potassium 5.0 Urine Color Urine Clarity Urine pH Ur Specific [place] Urine Protein Urine Glucose (UA) Urine Ketones Urine Blood Urine Nitrate Urine Bilirubin Urine Urobilinogen Ur Leukocyte Esterase Urine WBC (Auto) Urine RBC (Auto) Ur Squamous Epith Cells Uric Acid Crystals Urine Bacteria U Random Total Protein Ur Random Sodium Blood Type Antibody Screen 08/11/17 08/11/17 08/11/17 05:43 13:30 15:25 WBC RBC Hgb Hct MCV MCH MCHC RDW Plt Count MPV Neut % (Auto) Lymph % (Auto) Nolan % (Auto) Eos % (Auto) Baso % (Auto) Neut # Lymph # Nolan # Eos # Baso # Neutrophils % (Manual) Band Neutrophils % Lymphocytes % (Manual) Monocytes % (Manual) Platelet Estimate RBC Morphology Puncture Site Lb pCO2 33 L pO2 100 HCO3 20.3 L ABG pH 7.36 ABG Total CO2 19.6 L ABG O2 Saturation 99.0 H ABG Base Excess -5.9 L [place] Test Na ABG Potassium 3.8 A-a O2 Difference 144.0 Respiratory Index 1.4 Sodium 130 L 136.0 Chloride 104 111.0 H Glucose 167 H Lactate 0.9 Vent Mode Mechanical Rate FiO2 40.0 Tidal Volume PEEP 5 Pressure Support 10 CPAP 5 Crit Value Called To Dr adrian Crit Value Called By Mane vivar right of way supervisor Crit Value Read Back Y Blood Gas Notified Time 1345 Potassium 4.5 Carbon Dioxide 18 L Anion Gap 13 BUN 58 H Creatinine 1.4 Est GFR ( Amer) 60 Est GFR (Non-Af Amer) 50 Random Glucose 179 H Hemoglobin A1c Calcium 7.8 L Phosphorus 3.6 Magnesium 2.2 Total Bilirubin 2.7 H AST 23 ALT 32 Alkaline Phosphatase 53 Total Creatine Kinase CK-MB (Mass) Troponin I, Quant Total Protein 5.8 L Albumin 2.8 L Globulin 3.0 Albumin/Globulin Ratio 0.9 L Lipase TSH 3rd Generation Arterial Blood Potassium 3.8 Urine Color Yellow Urine Clarity Hazy Urine pH 5.0 Ur Specific [place] 1.020 Urine Protein Negative Urine Glucose (UA) Normal Urine Ketones Negative Urine Blood 2+ H Urine Nitrate Negative Urine Bilirubin Negative Urine Urobilinogen Normal Ur Leukocyte Esterase 3+ H Urine WBC (Auto) 31 H Urine RBC (Auto) 13 H Ur Squamous Epith Cells < 1 Uric Acid Crystals Rare Urine Bacteria Rare U Random Total Protein Ur Random Sodium Blood Type Antibody Screen 08/11/17 08/11/17 08/11/17 15:25 15:30 17:59 WBC RBC Hgb Hct MCV MCH MCHC RDW Plt Count MPV Neut % (Auto) Lymph % (Auto) Nolan % (Auto) Eos % (Auto) Baso % (Auto) Neut # Lymph # Nolan # Eos # Baso # Neutrophils % (Manual) Band Neutrophils % Lymphocytes % (Manual) Monocytes % (Manual) Platelet Estimate RBC Morphology Puncture Site pCO2 pO2 HCO3 ABG pH ABG Total CO2 ABG O2 Saturation ABG Base Excess [place] Test ABG Potassium A-a O2 Difference Respiratory Index Sodium Chloride Glucose Lactate Vent Mode Mechanical Rate FiO2 Tidal Volume PEEP Pressure Support CPAP Crit Value Called To Crit Value Called By Crit Value Read Back Blood Gas Notified Time Potassium Carbon Dioxide Anion Gap BUN Creatinine Est GFR ( Amer) Est GFR (Non-Af Amer) Random Glucose Hemoglobin A1c 7.2 H Calcium Phosphorus Magnesium Total Bilirubin AST ALT Alkaline Phosphatase Total Creatine Kinase CK-MB (Mass) Troponin I, Quant Total Protein Albumin Globulin Albumin/Globulin Ratio Lipase TSH 3rd Generation Arterial Blood Potassium Urine Color Urine Clarity Urine pH Ur Specific [place] Urine Protein Urine Glucose (UA) Urine Ketones Urine Blood Urine Nitrate Urine Bilirubin Urine Urobilinogen Ur Leukocyte Esterase Urine WBC (Auto) Urine RBC (Auto) Ur Squamous Epith Cells Uric Acid Crystals Urine Bacteria U Random Total Protein Cancelled 28.0 H Ur Random Sodium 35 Blood Type Antibody Screen 08/11/17 17:59 WBC RBC Hgb Hct MCV MCH MCHC RDW Plt Count MPV Neut % (Auto) Lymph % (Auto) [place] % (Auto) Eos % (Auto) Baso % (Auto) Neut # Lymph # Nolan # Eos # Baso # Neutrophils % (Manual) Band Neutrophils % Lymphocytes % (Manual) Monocytes % (Manual) Platelet Estimate RBC Morphology Puncture Site pCO2 pO2 HCO3 ABG pH ABG Total CO2 ABG O2 Saturation ABG Base Excess [place] Test ABG Potassium A-a O2 Difference Respiratory Index Sodium Chloride Glucose Lactate Vent Mode Mechanical Rate FiO2 Tidal Volume PEEP Pressure Support CPAP Crit Value Called To Crit Value Called By Crit Value Read Back Blood Gas Notified Time Potassium Carbon Dioxide Anion Gap BUN Creatinine Est GFR ( Amer) Est GFR (Non-Af Amer) Random Glucose Hemoglobin A1c Calcium Phosphorus Magnesium Total Bilirubin AST ALT Alkaline Phosphatase Total Creatine Kinase 64 CK-MB (Mass) 1.57 Troponin I, Quant 0.0480 Total Protein Albumin Globulin Albumin/Globulin Ratio Lipase TSH 3rd Generation 1.28 Arterial Blood Potassium Urine Color Urine Clarity Urine pH Ur Specific [place] Urine Protein Urine Glucose (UA) Urine Ketones Urine Blood Urine Nitrate Urine Bilirubin Urine Urobilinogen Ur Leukocyte Esterase Urine WBC (Auto) Urine RBC (Auto) Ur Squamous Epith Cells Uric Acid Crystals Urine Bacteria U Random Total Protein Ur Random Sodium Blood Type Antibody Screen Attending/Attestation - Attestation I have personally seen and examined this patient.: Yes I have fully participated in the care of the patient.: Yes I have reviewed all pertinent clinical information: Yes Notes (Text): 08/11/17 18:51 Today: August The Patient was seen and examined at the bedside, Medical records reviewed, and management issues were discussed and formulated with the house staff. I have reviewed all the relevant clinical, laboratory, hemodynamic, radiographic data and medications Events reviewed Pain issues, skin care, head of the bed elevation, glycemic control were addressed. I concur with resident's assessment and plan of care as transcribed in Dr. Heart note.
[2017-08-11 07:58] LABS: NEUTROPHIL 80 % (50-75); TOTAL CELLS COUNTED 100
--- NOTE | 2017-08-11 08:27 | RAD ---
HISTORY: intubation COMPARISON: 08/10/2017 FINDINGS: LUNGS: Endotracheal tube extending into the mid thoracic trachea. NG tube extending into the stomach. Moderate venous congestion with patchy bibasilar airspace opacities and small bilateral pleural effusions. PLEURA: As above. CARDIOVASCULAR: Cardiomegaly. OSSEOUS STRUCTURES: Degenerative changes in the spine and shoulders. VISUALIZED UPPER ABDOMEN: Normal. OTHER FINDINGS: None. IMPRESSION: Endotracheal tube extending into the mid thoracic trachea. NG tube extending into the stomach. Moderate venous congestion with patchy bibasilar airspace opacities and small bilateral pleural effusions. Cardiomegaly.
--- NOTE | 2017-08-11 09:20 | CP.PCM.CON ---
History of Present Illness - History of Present Illness History of Present Illness: 72 y/o M w/PMHx of persistent lower extremity cellulitis, colon polyp resection , CKD, recurrent nephrolithiasis. Pt states that he has not had a bowel movement in more than 5 days and that he has had increasing diffuse abdominal pain during the same time. Pt also notes that he has not been passing gas but has chills and has been vomiting dark-green emesis frequently unrelated to food intake. Patient says in the past few days he has vomited around 30 times. He notes that he has not eaten for the past several days but still has been vomiting, most recently upon arrival to the ED. He has tried several over the counter laxatives and found no relief. On questioning, he notes that his abdomen is much more swollen than it normally is. Subsequently in the ED he was found to have new onset atrial fibrillation. Patient denies chest pain or shortness of breath. PMHx: CKD, lower extremity cellulitis, large colonic polyps (resected), nephrolithiasis, BPH, PSH: about 80% of colon resected 2010, ureteral stent and lithotripsy [id number] FH: non-contributory SH: Patient lives at home with son. Pt reports that he drank socially but quit 9 years ago. He also was a light tobacco user but quit that around 9 years ago. He denies ever using illicit drug use. Home meds: none Allergies: cefdinir s/p lysis of adhesions and repair of incarcerated ventral hernia. Treated for sepsis pre-op and given IV fluids during and post op- several liters of NS Remains with AFib post op. Has had good UO post op.- 485 ml this AM Now on vent, sedated, IV ABs for presumed sepsis. CXR with mild CHF Review of Systems - Review of Systems Systems not reviewed;Unavailable: Intubated Past Patient History - Infectious Disease Hx of Infectious Diseases: None - Past Medical History & Family History Past Medical History?: Yes Past Family History: Reviewed and not pertinent - Past Social History Smoking Status: Former Smoker Chewing Tobacco Use: No Cigar Use: No Alcohol: Occasional Home Situation {Lives}: With Family - CARDIAC Hx Peripheral Edema: Yes - PULMONARY Hx Respiratory Disorders: No - NEUROLOGICAL Hx Neurological Disorder: No - HEENT Hx HEENT Problems: Yes Hx Glaucoma: Yes - RENAL Hx Chronic Kidney Disease: Yes Hx Kidney Stones: Yes - ENDOCRINE/METABOLIC Hx Endocrine Disorders: No - HEMATOLOGICAL/ONCOLOGICAL Hx Blood Disorders: No - INTEGUMENTARY Hx Dermatological Problems: No - MUSCULOSKELETAL/RHEUMATOLOGICAL Hx Arthritis: Yes (FINGERS) Hx Fractures: Yes (left leg as toddler) - GASTROINTESTINAL Hx Gastrointestinal Disorders: Yes Hx Bowel Surgery: Yes (COLON RESECTION) - GENITOURINARY/GYNECOLOGICAL Hx Genitourinary Disorders: Yes Hx Prostate Problems: Yes - PSYCHIATRIC Hx Substance Use: No - SURGICAL HISTORY Hx Surgeries: Yes Other/Comment: Cysto, stent insertion 09/29/15, Colon resction 2010. [facility]/LITHOTRIPSY - ANESTHESIA Hx Anesthesia: Yes Hx Anesthesia Reactions: No Hx Malignant Hyperthermia: No Meds Allergies/Adverse Reactions: Allergies Allergy/AdvReac Type Severity Reaction Status Date / Time cefdinir [From Omnicef] Allergy Verified 08/10/17 05:16 - Medications Medications: Current Medications Acetaminophen (Tylenol 650 Mg Supp) 650 mg [place] Q6 PRN PRN Reason: Temperature Albumin Human (Albumin Human 25% (12.5 Gm/50 Ml)) 12.5 gm IV Q8 [facility] Stop: 08/12/17 23:01 Last Admin: 08/11/17 05:34 Dose: 12.5 gm Heparin Sodium (Porcine) (Heparin) 5,000 units SC Q12 KARAN Last Admin: 08/10/17 22:52 Dose: Not Given Piperacillin Sod/Tazobactam Sod (Zosyn 2.25 Gm Iv Premix) 2.25 gm in 50 mls @ 100 mls/hr IVPB Q6 KARAN Last Admin: 08/11/17 05:37 Dose: 100 mls/hr Fentanyl Citrate 2,500 mcg/ (Sodium Chloride) 250 mls @ 20.5 mls/hr IV .[id number] KARAN; 2 MCG/KG/HR PRN Reason: Protocol Last Titration: 08/11/17 00:00 Dose: 1 mcg/kg/hr, 10.25 mls/hr Propofol (Diprivan) 1,000 mg in 100 mls @ 3.075 mls/hr IV .Q24H PRN; Protocol; 5 MCG/KG/MIN PRN Reason: TITRATE PER MD ORDER Last Titration: 08/10/17 22:30 Dose: 10 mcg/kg/min, 6.151 mls/hr Sodium Chloride (Sodium Chloride 0.9%) 1,000 mls @ 150 mls/hr IV .Q6H40M [facility] Last Admin: 08/11/17 05:42 Dose: 150 mls/hr Phenylephrine HCl 30 mg/ (Sodium Chloride) 253 mls @ 10.12 mls/hr IV .Q24H PRN ; Protocol; 20 MCG/MIN PRN Reason: TITRATE PER MD ORDER Last Titration: 08/11/17 06:39 Dose: 0 mcg/min, 0 mls/hr Pantoprazole Sodium (Protonix Inj) 40 mg IVP DAILY [facility] Last Admin: 08/10/17 09:32 Dose: 40 mg Physical Exam - Constitutional Appears: Chronically Ill - Head Exam Head Exam: ATRAUMATIC, NORMAL INSPECTION - Neck Exam Neck exam: Positive for: Normal Inspection. Negative for: Tenderness - Respiratory Exam Respiratory Exam: Clear to Auscultation Bilateral, Respiratory Distress - Cardiovascular Exam Cardiovascular Exam: Tachycardia, Irregular Rhythm - GI/Abdominal Exam GI & Abdominal Exam: Soft, Tenderness - Extremities Exam Extremities exam: Positive for: pedal edema - Neurological Exam Neurological exam: Altered - Skin Skin Exam: Pallor, Vesicles, Warm Results - Vital Signs Recent Vital Signs: Last Vital Signs Temp 98.4 F 08/11/17 08:00 Pulse 129 H 08/11/17 01:00 Resp 22 08/11/17 01:00 BP 111/45 L 08/11/17 01:10 Pulse Ox 99 08/11/17 01:00 - Labs Result Diagrams: 08/11/17 05:43 08/11/17 05:43 Labs: Laboratory Results - last 24 hr 08/10/17 08/10/17 08/10/17 09:23 11:20 15:43 WBC RBC Hgb Hct MCV MCH MCHC RDW Plt Count MPV Neut % (Auto) Lymph % (Auto) [place] % (Auto) Eos % (Auto) Baso % (Auto) Neut # Lymph # [place] # Eos # Baso # Neutrophils % (Manual) Band Neutrophils % Lymphocytes % (Manual) Monocytes % (Manual) Platelet Estimate RBC Morphology Puncture Site pCO2 pO2 HCO3 ABG pH ABG Total CO2 ABG O2 Saturation ABG Base Excess [place] Test ABG Potassium A-a O2 Difference Respiratory Index Sodium Chloride Glucose Lactate Vent Mode Mechanical Rate FiO2 Tidal Volume PEEP Potassium Carbon Dioxide Anion Gap BUN Creatinine Est GFR ( Amer) Est GFR (Non-Af Amer) Random Glucose Calcium Phosphorus Magnesium Total Bilirubin AST ALT Alkaline Phosphatase Total Creatine Kinase 85 CK-MB (Mass) 3.04 Troponin I, Quant 0.0260 Total Protein Albumin Globulin Albumin/Globulin Ratio Lipase Procalcitonin 0.36 Arterial Blood Potassium Urine Color Yellow Urine Clarity Hazy Urine pH 5.0 Ur Specific [place] 1.018 Urine Protein Negative Urine Glucose (UA) Normal Urine Ketones Negative Urine Blood Negative Urine Nitrate Negative Urine Bilirubin Negative Urine Urobilinogen Normal Ur Leukocyte Esterase Trace Urine WBC (Auto) 8 H Urine RBC (Auto) 3 Ur Squamous Epith Cells 9 H Urine Bacteria Rare Blood Type Antibody Screen 08/10/17 08/10/17 08/10/17 19:09 22:40 22:46 WBC 25.2 H RBC 4.37 L Hgb 13.2 D Hct 40.5 MCV 92.7 MCH 30.3 MCHC 32.7 L RDW 13.8 Plt Count 329 MPV 8.9 Neut % (Auto) 90.6 H Lymph % (Auto) 3.7 L [place] % (Auto) 5.2 Eos % (Auto) 0.0 Baso % (Auto) 0.5 Neut # 22.8 H Lymph # 0.9 L [place] # 1.3 H Eos # 0.0 Baso # 0.1 Neutrophils % (Manual) 94 H Band Neutrophils % Lymphocytes % (Manual) 3 L Monocytes % (Manual) 3 Platelet Estimate Normal RBC Morphology Puncture Site Shanna pCO2 32 L pO2 115 H HCO3 19.6 L ABG pH 7.35 ABG Total CO2 18.7 L ABG O2 Saturation 98.9 H ABG Base Excess -6.8 L [place] Test Na ABG Potassium 3.7 A-a O2 Difference 273.0 Respiratory Index 2.4 Sodium 135.0 Chloride 108.0 H Glucose 230 H Lactate 1.5 Vent Mode Prvc Mechanical Rate 10 FiO2 60.0 Tidal Volume 500 PEEP 5 Potassium Carbon Dioxide Anion Gap BUN Creatinine Est GFR ( Amer) Est GFR (Non-Af Amer) Random Glucose Calcium Phosphorus Magnesium Total Bilirubin AST ALT Alkaline Phosphatase Total Creatine Kinase CK-MB (Mass) Troponin I, Quant Total Protein Albumin Globulin Albumin/Globulin Ratio Lipase Procalcitonin Arterial Blood Potassium 3.7 Urine Color Urine Clarity Urine pH Ur Specific [place] Urine Protein Urine Glucose (UA) Urine Ketones Urine Blood Urine Nitrate Urine Bilirubin Urine Urobilinogen Ur Leukocyte Esterase Urine WBC (Auto) Urine RBC (Auto) Ur Squamous Epith Cells Urine Bacteria Blood Type A POSITIVE Antibody Screen Negative 08/10/17 08/11/17 08/11/17 22:46 05:04 05:43 WBC 19.2 H RBC 3.93 L Hgb 12.3 Hct 36.5 MCV 92.9 MCH 31.2 H MCHC 33.6 RDW 14.0 Plt Count 202 D MPV 9.0 Neut % (Auto) 90.2 H Lymph % (Auto) 2.8 L [place] % (Auto) 6.6 Eos % (Auto) 0.0 Baso % (Auto) 0.4 Neut # 17.3 H Lymph # 0.5 L [place] # 1.3 H Eos # 0.0 Baso # 0.1 Neutrophils % (Manual) 80 H Band Neutrophils % 7 H Lymphocytes % (Manual) 3 L Monocytes % (Manual) 10 Platelet Estimate Normal RBC Morphology Normal Puncture Site Shanna pCO2 38 pO2 105 H HCO3 22.7 ABG pH 7.37 ABG Total CO2 23.2 ABG O2 Saturation 99.3 H ABG Base Excess -2.9 L [place] Test Na ABG Potassium 5.0 A-a O2 Difference 275.0 Respiratory Index 2.6 Sodium 128 L 132.0 Chloride 101 106.0 Glucose 221 H Lactate 1.2 Vent Mode Prvc Mechanical Rate 20 FiO2 60.0 Tidal Volume 500 PEEP 5 Potassium 4.0 Carbon Dioxide 18 L Anion Gap 13 BUN 60 H Creatinine 1.4 Est GFR ( Amer) 60 Est GFR (Non-Af Amer) 50 Random Glucose 217 H Calcium 7.5 L Phosphorus 4.3 Magnesium 2.0 Total Bilirubin 2.4 H AST 22 ALT 36 Alkaline Phosphatase 60 Total Creatine Kinase CK-MB (Mass) Troponin I, Quant Total Protein 5.1 L Albumin 2.8 L D Globulin 2.3 Albumin/Globulin Ratio 1.2 Lipase 246 Procalcitonin Arterial Blood Potassium 5.0 Urine Color Urine Clarity Urine pH Ur Specific [place] Urine Protein Urine Glucose (UA) Urine Ketones Urine Blood Urine Nitrate Urine Bilirubin Urine Urobilinogen Ur Leukocyte Esterase Urine WBC (Auto) Urine RBC (Auto) Ur Squamous Epith Cells Urine Bacteria Blood Type Antibody Screen 08/11/17 05:43 WBC RBC Hgb Hct MCV MCH MCHC RDW Plt Count MPV Neut % (Auto) Lymph % (Auto) [place] % (Auto) Eos % (Auto) Baso % (Auto) Neut # Lymph # [place] # Eos # Baso # Neutrophils % (Manual) Band Neutrophils % Lymphocytes % (Manual) Monocytes % (Manual) Platelet Estimate RBC Morphology Puncture Site pCO2 pO2 HCO3 ABG pH ABG Total CO2 ABG O2 Saturation ABG Base Excess [place] Test ABG Potassium A-a O2 Difference Respiratory Index Sodium 130 L Chloride 104 Glucose Lactate Vent Mode Mechanical Rate FiO2 Tidal Volume PEEP Potassium 4.5 Carbon Dioxide 18 L Anion Gap 13 BUN 58 H Creatinine 1.4 Est GFR ( Amer) 60 Est GFR (Non-Af Amer) 50 Random Glucose 179 H Calcium 7.8 L Phosphorus 3.6 Magnesium 2.2 Total Bilirubin 2.7 H AST 23 ALT 32 Alkaline Phosphatase 53 Total Creatine Kinase CK-MB (Mass) Troponin I, Quant Total Protein 5.8 L Albumin 2.8 L Globulin 3.0 Albumin/Globulin Ratio 0.9 L Lipase Procalcitonin Arterial Blood Potassium Urine Color Urine Clarity Urine pH Ur Specific [place] Urine Protein Urine Glucose (UA) Urine Ketones Urine Blood Urine Nitrate Urine Bilirubin Urine Urobilinogen Ur Leukocyte Esterase Urine WBC (Auto) Urine RBC (Auto) Ur Squamous Epith Cells Urine Bacteria Blood Type Antibody Screen Assessment & Plan (1) Chronic kidney disease, stage III (moderate) Status: Acute (2) Hypertensive chronic kidney disease with stage 1 through stage 4 chronic kidney disease, or unspecified chronic kidney disease Status: Acute (3) Atrial fibrillation, new onset Status: Acute (4) Hyponatremia with excess extracellular fluid volume Status: Acute (5) Cellulitis Status: Acute (6) SBO (small bowel obstruction) Status: Acute (7) Infected skin ulcer limited to breakdown of skin Status: Acute (8) Metabolic acidemia Status: Acute - Assessment and Plan (Free Text) Plan: Agree with decreasing IV fluids now- UO adequate and now with worse hyponatremia from dilutional hyponatrermia Has h/o CKD; renal function seems stable at present Will check urine lytes and recheck for proteinuria Metabolic acidosis appears well compensated at present- ie respiratory alkalosis compensating suffiently
[2017-08-11] MEDS ORDERED: Sodium Chloride 0.9% 500 ML IV ONE (09:33)
--- NOTE | 2017-08-11 10:05 | CP.PCM.PN ---
Subjective - Date & Time of Evaluation Date of Evaluation: 08/11/17 Time of Evaluation: 07:30 - Subjective Subjective: General Surgery Pt S&E, NAEO. Cardizem and phenylephrine off. Fluid bolus overnight, adequate UOP. Intubated and sedated. Objective - Vital Signs/Intake and Output Vital Signs (last 24 hours): Temp Pulse Resp BP Pulse Ox 98.4 F 129 H 22 111/45 L 99 08/11/17 08:00 08/11/17 01:00 08/11/17 01:00 08/11/17 01:10 08/11/17 01:00 Intake and Output: 08/11/17 08/11/17 06:59 18:59 Intake Total 2076 1498 Output Total 945 180 Balance 1131 1318 - Medications Medications: Current Medications Acetaminophen (Tylenol 650 Mg Supp) 650 mg [place] Q6 PRN PRN Reason: Temperature Albumin Human (Albumin Human 25% (12.5 Gm/50 Ml)) 12.5 gm IV Q8 [facility] Stop: 08/12/17 23:01 Last Admin: 08/11/17 05:34 Dose: 12.5 gm Heparin Sodium (Porcine) (Heparin) 5,000 units SC Q12 KARAN Last Admin: 08/10/17 22:52 Dose: Not Given Piperacillin Sod/Tazobactam Sod (Zosyn 2.25 Gm Iv Premix) 2.25 gm in 50 mls @ 100 mls/hr IVPB Q6 KARAN Last Admin: 08/11/17 05:37 Dose: 100 mls/hr Fentanyl Citrate 2,500 mcg/ (Sodium Chloride) 250 mls @ 20.5 mls/hr IV .[id number] KARAN; 2 MCG/KG/HR PRN Reason: Protocol Last Titration: 08/11/17 00:00 Dose: 1 mcg/kg/hr, 10.25 mls/hr Sodium Chloride (Sodium Chloride 0.9%) 1,000 mls @ 150 mls/hr IV .Q6H40M [facility] Last Admin: 08/11/17 05:42 Dose: 150 mls/hr Sodium Chloride (Sodium Chloride 0.9%) 500 mls @ 1,000 mls/hr IV .Q30M [facility] Stop: 08/11/17 10:02 Pantoprazole Sodium (Protonix Inj) 40 mg IVP DAILY [facility] Last Admin: 08/10/17 09:32 Dose: 40 mg - Labs Labs: 08/11/17 05:43 08/11/17 05:43 PT 11.9 SECONDS (9.7-12.2) 08/10/17 05:54 INR 1.1 08/10/17 05:54 APTT 24 SECONDS (21-34) 08/10/17 05:54 - Constitutional Appears: Non-toxic, No Acute Distress - Head Exam Head Exam: ATRAUMATIC, NORMOCEPHALIC - Eye Exam Eye Exam: EOMI. absent: Scleral icterus - ENT Exam Additional comments: ETT in place - Respiratory Exam Respiratory Exam: NORMAL BREATHING PATTERN (on vent). absent: Respiratory Distress - GI/Abdominal Exam GI & Abdominal Exam: Distended (mild), Guarding (mild), Soft, Tenderness. absent: Firm, Rigid, Rebound Additional comments: dressing C/D/I - Neurological Exam Neurological Exam: Alert, Awake - Skin Skin Exam: Dry, Warm Assessment and Plan - Assessment and Plan (Free Text) Assessment: 72M S/P ex lap with ventral hernia repair and extensive lysis of adhesions Plan: Reglan 10mg q6h Vent weaning per ICU Medical management per ICU Appreciate Nephrology recs D/W Dr. Marcial Thornton PGY4
--- NOTE | 2017-08-11 11:10 | CP.PCM.CON ---
<Carlos RAYMUNDOEmilia Johnnie - Last Filed: 08/11/17 10:48> History of Present Illness - History of Present Illness History of Present Illness: Cardiology consult note for Dr. Henriquez Patient is a 72 year old male with PMHx of arthritis, history of colon resection 2010, recurrent kidney stones, renal insufficiency, lower extremity cellulitis presented to the ED on 08/10/17 with complaint of abdominal pain, bilious vomiting for one week, and no bowel movement for 8 days. In the ED, CT scan found small bowel obstruction secondary to a small incarcerated umbilical hernia. Initial EKG in ER showed sinus tachycardia with subsequent EKG showing atrial fibrillation. Patient has no prior history of a.fib. Patient was taken to the OR in evening of 08/10/17 for exploratory laparotomy, lysis of adhesions, and hernia repair. Patient was not extubated following surgery and remains intubated and sedated in the ICU. PMHx: CKD, lower extremity cellulitis, large colonic polyps (resected), nephrolithiasis, BPH, PSH: about 80% of colon resected 2010, ureteral stent and lithotripsy [id number] FH: non-contributory SH: Patient lives at home with son. Pt reports that he drank socially but quit 9 years ago. He also was a light tobacco user but quit that around 9 years ago. He denies ever using illicit drug use. Home meds: none Allergies: cefdinir Review of Systems - Review of Systems Systems not reviewed;Unavailable: Intubated Past Patient History - Infectious Disease Hx of Infectious Diseases: None - Past Medical History & Family History Past Medical History?: Yes Past Family History: Reviewed and not pertinent - Past Social History Smoking Status: Former Smoker Chewing Tobacco Use: No Cigar Use: No Alcohol: Occasional Home Situation {Lives}: With Family - CARDIAC Hx Peripheral Edema: Yes - PULMONARY Hx Respiratory Disorders: No - NEUROLOGICAL Hx Neurological Disorder: No - HEENT Hx HEENT Problems: Yes Hx Glaucoma: Yes - RENAL Hx Chronic Kidney Disease: Yes Hx Kidney Stones: Yes - ENDOCRINE/METABOLIC Hx Endocrine Disorders: No - HEMATOLOGICAL/ONCOLOGICAL Hx Blood Disorders: No - INTEGUMENTARY Hx Dermatological Problems: No - MUSCULOSKELETAL/RHEUMATOLOGICAL Hx Arthritis: Yes (FINGERS) Hx Fractures: Yes (left leg as toddler) - GASTROINTESTINAL Hx Gastrointestinal Disorders: Yes Hx Bowel Surgery: Yes (COLON RESECTION) - GENITOURINARY/GYNECOLOGICAL Hx Genitourinary Disorders: Yes Hx Prostate Problems: Yes - PSYCHIATRIC Hx Substance Use: No - SURGICAL HISTORY Hx Surgeries: Yes Other/Comment: Cysto, stent insertion 09/29/15, Colon resction 2010. [facility]/LITHOTRIPSY - ANESTHESIA Hx Anesthesia: Yes Hx Anesthesia Reactions: No Hx Malignant Hyperthermia: No Meds Allergies/Adverse Reactions: Allergies Allergy/AdvReac Type Severity Reaction Status Date / Time cefdinir [From Omnicef] Allergy Verified 08/10/17 05:16 - Medications Medications: Current Medications Acetaminophen (Tylenol 650 Mg Supp) 650 mg AL Q6 PRN PRN Reason: Temperature Albumin Human (Albumin Human 25% (12.5 Gm/50 Ml)) 12.5 gm IV Q8 [facility] Stop: 08/12/17 23:01 Last Admin: 08/11/17 05:34 Dose: 12.5 gm Heparin Sodium (Porcine) (Heparin) 5,000 units SC Q12 [facility] Last Admin: 08/10/17 22:52 Dose: Not Given Piperacillin Sod/Tazobactam Sod (Zosyn 2.25 Gm Iv Premix) 2.25 gm in 50 mls @ 100 mls/hr IVPB Q6 [facility] Last Admin: 08/11/17 05:37 Dose: 100 mls/hr Fentanyl Citrate 2,500 mcg/ (Sodium Chloride) 250 mls @ 20.5 mls/hr IV .[id number] [facility]AN; 2 MCG/KG/HR PRN Reason: Protocol Last Titration: 08/11/17 00:00 Dose: 1 mcg/kg/hr, 10.25 mls/hr Sodium Chloride (Sodium Chloride 0.9%) 1,000 mls @ 150 mls/hr IV .[id number] [facility] Last Admin: 08/11/17 05:42 Dose: 150 mls/hr Pantoprazole Sodium (Protonix Inj) 40 mg IVP DAILY [facility] Last Admin: 08/10/17 09:32 Dose: 40 mg Physical Exam - Constitutional Additional comments: sedated and intubated - Head Exam Head Exam: NORMOCEPHALIC - Eye Exam Eye Exam: EOMI - ENT Exam Additional comments: ETT in place - Respiratory Exam Respiratory Exam: Clear to Auscultation Bilateral. absent: Respiratory Distress - Cardiovascular Exam Cardiovascular Exam: Tachycardia, Irregular Rhythm, +S1, +S2 - GI/Abdominal Exam GI & Abdominal Exam: Normal Bowel Sounds, Soft Additional comments: dressing clean, dry, intact - Exam Additional comments: borges catheter - Extremities Exam Additional comments: pressure offloading boots bilaterally, legs wrapped in xeroform and gauze - Neurological Exam Additional comments: sedated - Skin Skin Exam: Warm Results - Vital Signs Recent Vital Signs: Last Vital Signs Temp 98.4 F 08/11/17 08:00 Pulse 129 H 08/11/17 01:00 Resp 22 08/11/17 01:00 BP 111/45 L 08/11/17 01:10 Pulse Ox 99 08/11/17 01:00 - Labs Result Diagrams: 08/11/17 05:43 08/11/17 05:43 Labs: Laboratory Results - last 24 hr 08/10/17 08/10/17 08/10/17 11:20 15:43 19:09 WBC RBC Hgb Hct MCV MCH MCHC RDW Plt Count MPV Neut % (Auto) Lymph % (Auto) [place] % (Auto) Eos % (Auto) Baso % (Auto) Neut # Lymph # [place] # Eos # Baso # Neutrophils % (Manual) Band Neutrophils % Lymphocytes % (Manual) Monocytes % (Manual) Platelet Estimate RBC Morphology Puncture Site pCO2 pO2 HCO3 ABG pH ABG Total CO2 ABG O2 Saturation ABG Base Excess [place] Test ABG Potassium A-a O2 Difference Respiratory Index Sodium Chloride Glucose Lactate Vent Mode Mechanical Rate FiO2 Tidal Volume PEEP Potassium Carbon Dioxide Anion Gap BUN Creatinine Est GFR ( Amer) Est GFR (Non-Af Amer) Random Glucose Calcium Phosphorus Magnesium Total Bilirubin AST ALT Alkaline Phosphatase Total Creatine Kinase 85 CK-MB (Mass) 3.04 Troponin I, Quant 0.0260 Total Protein Albumin Globulin Albumin/Globulin Ratio Lipase Procalcitonin 0.36 Arterial Blood Potassium Blood Type A POSITIVE Antibody Screen Negative 08/10/17 08/10/17 08/10/17 22:40 22:46 22:46 WBC 25.2 H RBC 4.37 L Hgb 13.2 D Hct 40.5 MCV 92.7 MCH 30.3 MCHC 32.7 L RDW 13.8 Plt Count 329 MPV 8.9 Neut % (Auto) 90.6 H Lymph % (Auto) 3.7 L [place] % (Auto) 5.2 Eos % (Auto) 0.0 Baso % (Auto) 0.5 Neut # 22.8 H Lymph # 0.9 L [place] # 1.3 H Eos # 0.0 Baso # 0.1 Neutrophils % (Manual) 94 H Band Neutrophils % Lymphocytes % (Manual) 3 L Monocytes % (Manual) 3 Platelet Estimate Normal RBC Morphology Puncture Site [place] pCO2 32 L pO2 115 H HCO3 19.6 L ABG pH 7.35 ABG Total CO2 18.7 L ABG O2 Saturation 98.9 H ABG Base Excess -6.8 L [place] Test Na ABG Potassium 3.7 A-a O2 Difference 273.0 Respiratory Index 2.4 Sodium 135.0 128 L Chloride 108.0 H 101 Glucose 230 H Lactate 1.5 Vent Mode Prvc Mechanical Rate 10 FiO2 60.0 Tidal Volume 500 PEEP 5 Potassium 4.0 Carbon Dioxide 18 L Anion Gap 13 BUN 60 H Creatinine 1.4 Est GFR ( Amer) 60 Est GFR (Non-Af Amer) 50 Random Glucose 217 H Calcium 7.5 L Phosphorus 4.3 Magnesium 2.0 Total Bilirubin 2.4 H AST 22 ALT 36 Alkaline Phosphatase 60 Total Creatine Kinase CK-MB (Mass) Troponin I, Quant Total Protein 5.1 L Albumin 2.8 L D Globulin 2.3 Albumin/Globulin Ratio 1.2 Lipase 246 Procalcitonin Arterial Blood Potassium 3.7 Blood Type Antibody Screen 08/11/17 08/11/17 08/11/17 05:04 05:43 05:43 WBC 19.2 H RBC 3.93 L Hgb 12.3 Hct 36.5 MCV 92.9 MCH 31.2 H MCHC 33.6 RDW 14.0 Plt Count 202 D MPV 9.0 Neut % (Auto) 90.2 H Lymph % (Auto) 2.8 L [place] % (Auto) 6.6 Eos % (Auto) 0.0 Baso % (Auto) 0.4 Neut # 17.3 H Lymph # 0.5 L [place] # 1.3 H Eos # 0.0 Baso # 0.1 Neutrophils % (Manual) 80 H Band Neutrophils % 7 H Lymphocytes % (Manual) 3 L Monocytes % (Manual) 10 Platelet Estimate Normal RBC Morphology Normal Puncture Site [place] pCO2 38 pO2 105 H HCO3 22.7 ABG pH 7.37 ABG Total CO2 23.2 ABG O2 Saturation 99.3 H ABG Base Excess -2.9 L [place] Test Na ABG Potassium 5.0 A-a O2 Difference 275.0 Respiratory Index 2.6 Sodium 132.0 130 L Chloride 106.0 104 Glucose 221 H Lactate 1.2 Vent Mode Prvc Mechanical Rate 20 FiO2 60.0 Tidal Volume 500 PEEP 5 Potassium 4.5 Carbon Dioxide 18 L Anion Gap 13 BUN 58 H Creatinine 1.4 Est GFR ( Amer) 60 Est GFR (Non-Af Amer) 50 Random Glucose 179 H Calcium 7.8 L Phosphorus 3.6 Magnesium 2.2 Total Bilirubin 2.7 H AST 23 ALT 32 Alkaline Phosphatase 53 Total Creatine Kinase CK-MB (Mass) Troponin I, Quant Total Protein 5.8 L Albumin 2.8 L Globulin 3.0 Albumin/Globulin Ratio 0.9 L Lipase Procalcitonin Arterial Blood Potassium 5.0 Blood Type Antibody Screen Assessment & Plan - Assessment and Plan (Free Text) Assessment: 72 year old male with small bowel obstruction secondary to incarcerated umbilical s/p ex-lap who presents with new onset atrial fibrillation New onset Atrial fibrillation first troponin negative, will continue to trend will check TSH elevated glucose noted, will check A1c CHADS VASC: 1 for male and age 72, will follow up A1c, patient may need anticoagulation in future- recommend continuing DVT prophylactic dose heparin BP low-end normal with elevated heart rate which may be related to volume status-agree with continuing IV fluids will avoid beta blockers right now due to low BP If blood pressure drops, recommend neosynephrine for pressure support will continue to monitor echo 03/2017: LV function normal, LVEF in normal range, LA pressure mildly elevated will review new echo and make further recommendations pending results plan as per Dr. Henriquez <Troy Henriquez - Last Filed: 08/11/17 22:57> Meds - Medications Medications: Current Medications Acetaminophen (Tylenol 650 Mg Supp) 650 mg AL Q6 PRN PRN Reason: Temperature Albumin Human (Albumin Human 25% (12.5 Gm/50 Ml)) 12.5 gm IV Q8 [facility] Stop: 08/12/17 23:01 Last Admin: 08/11/17 21:53 Dose: 12.5 gm Heparin Sodium (Porcine) (Heparin) 5,000 units SC Q12 [facility] Last Admin: 08/11/17 21:51 Dose: 5,000 units Piperacillin Sod/Tazobactam Sod (Zosyn 2.25 Gm Iv Premix) 2.25 gm in 50 mls @ 100 mls/hr IVPB Q6 [facility] Last Admin: 08/11/17 18:30 Dose: 100 mls/hr Fentanyl Citrate 2,500 mcg/ (Sodium Chloride) 250 mls @ 20.5 mls/hr IV .[id number] [facility]; 2 MCG/KG/HR PRN Reason: Protocol Last Admin: 08/11/17 22:42 Dose: Not Given Sodium Chloride (Sodium Chloride 0.9%) 1,000 mls @ 150 mls/hr IV .[id number] [facility] Last Admin: 08/11/17 22:44 Dose: 150 mls/hr Metoclopramide HCl (Reglan) 10 mg IVP Q6H [facility] Last Admin: 08/11/17 22:42 Dose: 10 mg Pantoprazole Sodium (Protonix Inj) 40 mg IVP DAILY [facility] Last Admin: 08/11/17 10:50 Dose: 40 mg Results - Vital Signs Recent Vital Signs: Last Vital Signs Temp 99.4 F 08/11/17 20:00 Pulse 114 H 08/11/17 22:00 Resp 20 08/11/17 22:00 BP 100/48 L 08/11/17 21:10 Pulse Ox 97 08/11/17 22:00 - Labs Result Diagrams: 08/11/17 05:43 08/11/17 05:43 Labs: Laboratory Results - last 24 hr 08/10/17 08/10/17 08/11/17 22:46 22:46 05:04 WBC RBC Hgb Hct MCV MCH MCHC RDW Plt Count MPV Neut % (Auto) Lymph % (Auto) [place] % (Auto) Eos % (Auto) Baso % (Auto) Neut # Lymph # [place] # Eos # Baso # Neutrophils % (Manual) 94 H Band Neutrophils % Lymphocytes % (Manual) 3 L Monocytes % (Manual) 3 Platelet Estimate Normal RBC Morphology Puncture Site [place] pCO2 38 pO2 105 H HCO3 22.7 ABG pH 7.37 ABG Total CO2 23.2 ABG O2 Saturation 99.3 H ABG Base Excess -2.9 L [place] Test Na ABG Potassium 5.0 A-a O2 Difference 275.0 Respiratory Index 2.6 Glucose 221 H Lactate 1.2 Vent Mode Prvc Mechanical Rate 20 FiO2 60.0 Tidal Volume 500 PEEP 5 Pressure Support CPAP Crit Value Called To Crit Value Called By Crit Value Read Back Blood Gas Notified Time Sodium 128 L 132.0 Potassium 4.0 Chloride 101 106.0 Carbon Dioxide 18 L Anion Gap 13 BUN 60 H Creatinine 1.4 Est GFR ( Amer) 60 Est GFR (Non-Af Amer) 50 Random Glucose 217 H Hemoglobin A1c Calcium 7.5 L Phosphorus 4.3 Magnesium 2.0 Total Bilirubin 2.4 H AST 22 ALT 36 Alkaline Phosphatase 60 Total Creatine Kinase CK-MB (Mass) Troponin I, Quant Total Protein 5.1 L Albumin 2.8 L D Globulin 2.3 Albumin/Globulin Ratio 1.2 Lipase 246 TSH 3rd Generation Arterial Blood Potassium 5.0 Urine Color Urine Clarity Urine pH Ur Specific [place] Urine Protein Urine Glucose (UA) Urine Ketones Urine Blood Urine Nitrate Urine Bilirubin Urine Urobilinogen Ur Leukocyte Esterase Urine WBC (Auto) Urine RBC (Auto) Ur Squamous Epith Cells Uric Acid Crystals Urine Bacteria U Random Total Protein Ur Random Sodium 08/11/17 08/11/17 08/11/17 05:43 05:43 13:30 WBC 19.2 H RBC 3.93 L Hgb 12.3 Hct 36.5 MCV 92.9 MCH 31.2 H MCHC 33.6 RDW 14.0 Plt Count 202 D MPV 9.0 Neut % (Auto) 90.2 H Lymph % (Auto) 2.8 L [place] % (Auto) 6.6 Eos % (Auto) 0.0 Baso % (Auto) 0.4 Neut # 17.3 H Lymph # 0.5 L [place] # 1.3 H Eos # 0.0 Baso # 0.1 Neutrophils % (Manual) 80 H Band Neutrophils % 7 H Lymphocytes % (Manual) 3 L Monocytes % (Manual) 10 Platelet Estimate Normal RBC Morphology Normal Puncture Site Lb pCO2 33 L pO2 100 HCO3 20.3 L ABG pH 7.36 ABG Total CO2 19.6 L ABG O2 Saturation 99.0 H ABG Base Excess -5.9 L [place] Test Na ABG Potassium 3.8 A-a O2 Difference 144.0 Respiratory Index 1.4 Glucose 167 H Lactate 0.9 Vent Mode Mechanical Rate FiO2 40.0 Tidal Volume PEEP 5 Pressure Support 10 CPAP 5 Crit Value Called To Dr adrian Crit Value Called By Mane vivar controller instructor Crit Value Read Back Y Blood Gas Notified Time 1345 Sodium 130 L 136.0 Potassium 4.5 Chloride 104 111.0 H Carbon Dioxide 18 L Anion Gap 13 BUN 58 H Creatinine 1.4 Est GFR ( Amer) 60 Est GFR (Non-Af Amer) 50 Random Glucose 179 H Hemoglobin A1c Calcium 7.8 L Phosphorus 3.6 Magnesium 2.2 Total Bilirubin 2.7 H AST 23 ALT 32 Alkaline Phosphatase 53 Total Creatine Kinase CK-MB (Mass) Troponin I, Quant Total Protein 5.8 L Albumin 2.8 L Globulin 3.0 Albumin/Globulin Ratio 0.9 L Lipase TSH 3rd Generation Arterial Blood Potassium 3.8 Urine Color Urine Clarity Urine pH Ur Specific [place] Urine Protein Urine Glucose (UA) Urine Ketones Urine Blood Urine Nitrate Urine Bilirubin Urine Urobilinogen Ur Leukocyte Esterase Urine WBC (Auto) Urine RBC (Auto) Ur Squamous Epith Cells Uric Acid Crystals Urine Bacteria U Random Total Protein Ur Random Sodium 08/11/17 08/11/17 08/11/17 15:25 15:25 15:30 WBC RBC Hgb Hct MCV MCH MCHC RDW Plt Count MPV Neut % (Auto) Lymph % (Auto) [place] % (Auto) Eos % (Auto) Baso % (Auto) Neut # Lymph # [place] # Eos # Baso # Neutrophils % (Manual) Band Neutrophils % Lymphocytes % (Manual) Monocytes % (Manual) Platelet Estimate RBC Morphology Puncture Site pCO2 pO2 HCO3 ABG pH ABG Total CO2 ABG O2 Saturation ABG Base Excess [place] Test ABG Potassium A-a O2 Difference Respiratory Index Glucose Lactate Vent Mode Mechanical Rate FiO2 Tidal Volume PEEP Pressure Support CPAP Crit Value Called To Crit Value Called By Crit Value Read Back Blood Gas Notified Time Sodium Potassium Chloride Carbon Dioxide Anion Gap BUN Creatinine Est GFR ( Amer) Est GFR (Non-Af Amer) Random Glucose Hemoglobin A1c Calcium Phosphorus Magnesium Total Bilirubin AST ALT Alkaline Phosphatase Total Creatine Kinase CK-MB (Mass) Troponin I, Quant Total Protein Albumin Globulin Albumin/Globulin Ratio Lipase TSH 3rd Generation Arterial Blood Potassium Urine Color Yellow Urine Clarity Hazy Urine pH 5.0 Ur Specific [place] 1.020 Urine Protein Negative Urine Glucose (UA) Normal Urine Ketones Negative Urine Blood 2+ H Urine Nitrate Negative Urine Bilirubin Negative Urine Urobilinogen Normal Ur Leukocyte Esterase 3+ H Urine WBC (Auto) 31 H Urine RBC (Auto) 13 H Ur Squamous Epith Cells < 1 Uric Acid Crystals Rare Urine Bacteria Rare U Random Total Protein Cancelled 28.0 H Ur Random Sodium 35 08/11/17 08/11/17 17:59 17:59 WBC RBC Hgb Hct MCV MCH MCHC RDW Plt Count MPV Neut % (Auto) Lymph % (Auto) [place] % (Auto) Eos % (Auto) Baso % (Auto) Neut # Lymph # [place] # Eos # Baso # Neutrophils % (Manual) Band Neutrophils % Lymphocytes % (Manual) Monocytes % (Manual) Platelet Estimate RBC Morphology Puncture Site pCO2 pO2 HCO3 ABG pH ABG Total CO2 ABG O2 Saturation ABG Base Excess [place] Test ABG Potassium A-a O2 Difference Respiratory Index Glucose Lactate Vent Mode Mechanical Rate FiO2 Tidal Volume PEEP Pressure Support CPAP Crit Value Called To Crit Value Called By Crit Value Read Back Blood Gas Notified Time Sodium Potassium Chloride Carbon Dioxide Anion Gap BUN Creatinine Est GFR ( Amer) Est GFR (Non-Af Amer) Random Glucose Hemoglobin A1c 7.2 H Calcium Phosphorus Magnesium Total Bilirubin AST ALT Alkaline Phosphatase Total Creatine Kinase 64 CK-MB (Mass) 1.57 Troponin I, Quant 0.0480 Total Protein Albumin Globulin Albumin/Globulin Ratio Lipase TSH 3rd Generation 1.28 Arterial Blood Potassium Urine Color Urine Clarity Urine pH Ur Specific [place] Urine Protein Urine Glucose (UA) Urine Ketones Urine Blood Urine Nitrate Urine Bilirubin Urine Urobilinogen Ur Leukocyte Esterase Urine WBC (Auto) Urine RBC (Auto) Ur Squamous Epith Cells Uric Acid Crystals Urine Bacteria U Random Total Protein Ur Random Sodium Assessment & Plan - Assessment and Plan (Free Text) Assessment: Patient seen and evaluated with the medical biller coder Plan of care as documented
[2017-08-11] MEDS: Sodium Chloride 0.9% 1,000 ML IV SCH ×4 (11:26→22:44)
[2017-08-11 13:42] LABS: ATERIAL BLOOD GAS PEEP 5; DRAW SITE LB
[2017-08-11 15:46] LABS: RBC URINE 13 /hpf (0-3); URINE BACTERIA RARE (<OCC); URINE BILIRUBIN NEGATIVE (NEGATIVE); URINE BLOOD 2+ (NEGATIVE); URINE COLOR Yellow (YELLOW); URINE GLUCOSE (UA) NORMAL (Normal); URINE KETONE NEGATIVE (NEGATIVE); URINE LEUKOCYTE ESTERASE 3+ Leu/uL (Negative); URINE PROTEIN NEGATIVE (NEGATIVE); URINE URIC ACID CRYSTALS RARE /hpf (<OCC); URINE UROBILINOGEN NORMAL mg/dL (0.2-1.0); WBC URINE 31 /hpf (0-5)
--- NOTE | 2017-08-11 16:43 | CARD ---
APPROVED REPORT EXAM: Two-dimensional and M-mode echocardiogram with Doppler and color Doppler. Other Information Quality : TDSRhythm : Atrial Fibrillation INDICATION Dizziness and Vertigo Syncope 2D DIMENSIONS IVSd0.9 (0.7-1.1cm)LVDd4.3 (3.9-5.9cm) PWd1.1 (0.7-1.1cm)LVDs2.2 (2.5-4.0cm) FS (%) 48.5 %LVEF (%)65.0 (>50%) M-Mode DIMENSIONS Left Atrium (MM)4.25 (2.5-4.0cm)Aortic Root3.49 (2.2-3.7cm) Aortic Cusp Exc.1.85 (1.5-2.0cm) Mitral Valve E/A ratio0.0 TDI E/Lateral E'0.0E/Medial E'0.0 Tricuspid Valve TR Peak [id number] Peak [id number] <Conclusion> Difficult study Left ventricle: thickness: normal; size: normal; overall ejection fraction: 65%: diastolic filling pressures: normal Mitral valve: grossly normal Aortic valve: cannot credibly comment Right sided Structures: poorly visualized Intra-cardiac hemodynamics:indetterminate No pericardial effusion Suggest: AMANDA
[2017-08-11 18:49] LABS: THYROID STIMULATING HORMONE 1.28 mIU/L (0.46-4.68)
[2017-08-11] MEDS ORDERED: Metoprolol 1 mg/ml Inj IVP ONE (19:16)
[2017-08-12] MEDS: Sodium Chloride 0.9% 1,000 ML IV SCH ×2 (04:30→06:53)
[2017-08-12] MEDS: Albumin Human 25% (12.5 gm/50 ml) IV SCH ×3 (05:19→22:59)
[2017-08-12] MEDS: Piperacill/Tazo 2.25gm in Dex 2.25 GM/50 ML BAG IVPB SCH ×5 (05:20→23:26)
[2017-08-12 06:02] LABS: ABG ALLEN TEST POS; ABG MECHANICAL RATE 20; ARTERIAL BLOOD GAS MODE PRVC; ATERIAL BLOOD GAS PEEP 5; DRAW SITE LR
[2017-08-12 06:44] LABS: BASO % 0.3 % (0.0-2.0); EOS % 0.2 % (0.0-4.0); HEMATOCRIT 30.6 % (35.0-51.0); LYMPH # 0.7 K/uL (1.0-4.3); LYMPH % 6.5 % (20.0-40.0); MEAN CELL VOLUME 95.2 fL (80.0-94.0); MEAN CORPUSCULAR HEMOGLOBIN 31.4 pg (27.0-31.0); MEAN CORPUSCULAR HGB CONC 32.9 g/dL (33.0-37.0); MEAN PLATELET VOLUME 8.9 fL (7.2-11.7); MONO # 0.9 K/uL (0.0-0.8); MONO % 8.7 % (0.0-10.0); PLATELET COUNT 150 K/uL (130-400); WHITE BLOOD COUNT 10.3 K/uL (4.8-10.8)
[2017-08-12] MEDS ORDERED: Metoprolol 1 mg/ml Inj IVP ONE (06:45)
[2017-08-12 06:54] LABS: CHLORIDE 108 mmol/L (98-107); SODIUM 137 mmol/L (132-148)
[2017-08-12 06:55] LABS: POTASSIUM 3.9 mmol/L (3.6-5.2)
[2017-08-12 06:57] LABS: ALKALINE PHOSPHATASE 38 U/L (38-126); ALT/SGPT 31 U/L (21-72); AST/SGOT 13 U/L (17-59); BILIRUBIN,TOTAL 1.9 mg/dL (0.2-1.3); BLOOD UREA NITROGEN 37 mg/dL (9-20); CARBON DIOXIDE 18 mmol/L (22-30); GFR AFRICAN-AMERICAN > 60; GLUCOSE,RANDOM 96 mg/dL (75-110); PHOSPHOROUS 2.3 mg/dL (2.5-4.5); TOTAL PROTEIN 5.4 g/dL (6.3-8.3)
[2017-08-12 06:58] LABS: CALCIUM 7.5 mg/dl (8.6-10.4); MAGNESIUM 2.3 mg/dL (1.6-2.3)
[2017-08-12] MEDS: (Novolin R) Insulin Human Regular 100 units/ml vial SC SCH ×3 (08:05→18:11)
[2017-08-12 08:31] LABS: NEUTROPHIL 87 % (50-75); TOTAL CELLS COUNTED 100
--- NOTE | 2017-08-12 08:53 | RAD ---
Chest x-ray single frontal view History: Intubated. Comparison: 08/10/2017 Findings: Endotracheal tube extending into the mid thoracic trachea. Moderate to severe venous congestion with prominent bibasilar airspace opacification and small bilateral pleural effusions. Right hilar prominence. Biapical pleural thickening with upper lobe granulomatous changes. Scattered nodular densities throughout both lungs. Cardiomegaly. Enlarged ectatic aorta. Degenerative changes the spine and shoulders. Impression: Endotracheal tube extending into the mid thoracic trachea. Moderate to severe venous congestion with prominent bibasilar airspace opacification and small bilateral pleural effusions. Right hilar prominence. Biapical pleural thickening with upper lobe granulomatous changes. Scattered nodular densities throughout both lungs. Cardiomegaly. Enlarged ectatic aorta.
--- NOTE | 2017-08-12 10:00 | CP.PCM.PN ---
Subjective - Date & Time of Evaluation Date of Evaluation: 08/11/17 Time of Evaluation: 10:00 - Subjective Subjective: Patient having low blood pressure. Being managed in the intensive care unit. On a ventilator. Secretions noted. Grossly being monitored. Vital signs stable. Chest good air entry, regular heart sound. History of atrial fibrillation, renal insufficiency, status post abdominal surgery. Continue current treatment. Objective - Vital Signs/Intake and Output Vital Signs (last 24 hours): Temp Pulse Resp BP Pulse Ox 98.8 F 107 H 12 99/39 L 98 08/12/17 08:00 08/12/17 09:04 08/12/17 09:04 08/12/17 09:04 08/12/17 09:04 Intake and Output: 08/12/17 08/12/17 06:59 18:59 Intake Total 1960 530 Output Total 550 175 Balance 1410 355 - Medications Medications: Current Medications Acetaminophen (Tylenol 650 Mg Supp) 650 mg NM Q6 PRN PRN Reason: Temperature Albumin Human (Albumin Human 25% (12.5 Gm/50 Ml)) 12.5 gm IV Q8 [facility] Stop: 08/12/17 23:01 Last Admin: 08/12/17 05:19 Dose: 12.5 gm Furosemide (Lasix) 20 mg IVP STAT STA Stop: 08/12/17 09:49 Heparin Sodium (Porcine) (Heparin) 5,000 units SC Q12 [facility] Last Admin: 08/12/17 09:35 Dose: 5,000 units Piperacillin Sod/Tazobactam Sod (Zosyn 2.25 Gm Iv Premix) 2.25 gm in 50 mls @ 100 mls/hr IVPB Q6 [facility] Last Admin: 08/12/17 06:00 Dose: 100 mls/hr Fentanyl Citrate 2,500 mcg/ (Sodium Chloride) 250 mls @ 20.5 mls/hr IV .[id number] [facility]; 2 MCG/KG/HR PRN Reason: Protocol Last Admin: 08/12/17 05:22 Dose: 1.95 mcg/kg/hr, 20 mls/hr Insulin Human Regular (Novolin R) 0 unit SC Q6 [facility] PRN Reason: Protocol Last Admin: 08/12/17 08:05 Dose: Not Given Metoclopramide HCl (Reglan) 10 mg IVP Q6H [facility] Last Admin: 08/12/17 05:19 Dose: 10 mg Pantoprazole Sodium (Protonix Inj) 40 mg IVP DAILY [facility] Last Admin: 08/12/17 09:35 Dose: 40 mg Potassium Phos/Sodium Phos (Neutra-Phos) 1 pkt PO BID [facility] - Labs Labs: 08/12/17 06:39 08/12/17 06:39 PT 11.9 SECONDS (9.7-12.2) 08/10/17 05:54 INR 1.1 08/10/17 05:54 APTT 24 SECONDS (21-34) 08/10/17 05:54
[2017-08-12] MEDS: Potassium & Sodium Phosphate PO SCH ×2 (10:09→17:57)
--- NOTE | 2017-08-12 10:10 | CP.PCM.PN ---
Subjective - Date & Time of Evaluation Date of Evaluation: 08/12/17 Time of Evaluation: 07:45 - Subjective Subjective: General Surgery Pt S&E, intubated, on fentanyl. UOP adequate (55cc/hr). Mild tachycardia in 110s. A-line malfunction. BPs from cuff. No BM Objective - Vital Signs/Intake and Output Vital Signs (last 24 hours): Temp Pulse Resp BP Pulse Ox 98.8 F 107 H 12 99/39 L 98 08/12/17 08:00 08/12/17 09:04 08/12/17 09:04 08/12/17 09:04 08/12/17 09:04 Intake and Output: 08/12/17 08/12/17 06:59 18:59 Intake Total 1960 530 Output Total 550 175 Balance 1410 355 - Medications Medications: Current Medications Acetaminophen (Tylenol 650 Mg Supp) 650 mg IA Q6 PRN PRN Reason: Temperature Albumin Human (Albumin Human 25% (12.5 Gm/50 Ml)) 12.5 gm IV Q8 [facility] Stop: 08/12/17 23:01 Last Admin: 08/12/17 05:19 Dose: 12.5 gm Furosemide (Lasix) 20 mg IVP Q12H [facility] Heparin Sodium (Porcine) (Heparin) 5,000 units SC Q12 [facility] Last Admin: 08/12/17 09:35 Dose: 5,000 units Piperacillin Sod/Tazobactam Sod (Zosyn 2.25 Gm Iv Premix) 2.25 gm in 50 mls @ 100 mls/hr IVPB Q6 [facility] Last Admin: 08/12/17 06:00 Dose: 100 mls/hr Fentanyl Citrate 2,500 mcg/ (Sodium Chloride) 250 mls @ 20.5 mls/hr IV .[id number] [facility]; 2 MCG/KG/HR PRN Reason: Protocol Last Admin: 08/12/17 05:22 Dose: 1.95 mcg/kg/hr, 20 mls/hr Insulin Human Regular (Novolin R) 0 unit SC Q6 [facility] PRN Reason: Protocol Last Admin: 08/12/17 08:05 Dose: Not Given Metoclopramide HCl (Reglan) 10 mg IVP Q6H [facility] Last Admin: 08/12/17 05:19 Dose: 10 mg Metoprolol Tartrate (Lopressor) 2.5 mg IVP Q6H [facility] Pantoprazole Sodium (Protonix Inj) 40 mg IVP DAILY [facility] Last Admin: 08/12/17 09:35 Dose: 40 mg Potassium Phos/Sodium Phos (Neutra-Phos) 1 pkt PO BID [facility] - Labs Labs: 08/12/17 06:39 08/12/17 06:39 PT 11.9 SECONDS (9.7-12.2) 08/10/17 05:54 INR 1.1 08/10/17 05:54 APTT 24 SECONDS (21-34) 08/10/17 05:54 - Constitutional Appears: Non-toxic, No Acute Distress - Head Exam Head Exam: ATRAUMATIC, NORMOCEPHALIC - Eye Exam Eye Exam: EOMI. absent: Scleral icterus - Respiratory Exam Respiratory Exam: NORMAL BREATHING PATTERN (on vent). absent: Respiratory Distress - Cardiovascular Exam Cardiovascular Exam: Tachycardia, +S1, +S2 - GI/Abdominal Exam GI & Abdominal Exam: Soft, Tenderness (at incision site). absent: Distended, Firm, Guarding, Rigid, Rebound Additional comments: dressing C/D/I - Neurological Exam Neurological Exam: Awake (intubated) - Skin Skin Exam: Dry, Warm Assessment and Plan - Assessment and Plan (Free Text) Assessment: 72M S/P ex lap with ventral hernia repair and extensive lysis of adhesions POD#2 Plan: Monitor for BM Vent weaning per ICU Appreciate cardiology recs Monitor UOP and BP Ok to remove A-line if not working. D/W Dr. Marcial Thornton PGY4
[2017-08-12] MEDS: Metoprolol 1 mg/ml Inj IVP SCH ×4 (10:25→23:55)
--- NOTE | 2017-08-12 13:32 | CP.PCM.PN ---
Subjective - Date & Time of Evaluation Date of Evaluation: 08/12/17 Time of Evaluation: 13:29 - Subjective Subjective: Remains on vent; sedated UO increased- IV lasix added this AM for increasing CHF Rhythm with AFib- VR-100s Creat decreased to 1.1 Still acidemic- compensated On IV ABs for +abdominal fluid cultures Objective - Vital Signs/Intake and Output Vital Signs (last 24 hours): Temp Pulse Resp BP Pulse Ox 98.5 F 114 H 20 106/61 98 08/12/17 12:00 08/12/17 12:04 08/12/17 12:04 08/12/17 12:04 08/12/17 12:04 Intake and Output: 08/12/17 08/12/17 06:59 18:59 Intake Total 1960 960 Output Total 550 1050 Balance 1410 -90 - Medications Medications: Current Medications Acetaminophen (Tylenol 650 Mg Supp) 650 mg CA Q6 PRN PRN Reason: Temperature Albumin Human (Albumin Human 25% (12.5 Gm/50 Ml)) 12.5 gm IV Q8 KARAN Stop: 08/12/17 23:01 Last Admin: 08/12/17 05:19 Dose: 12.5 gm Apixaban (Eliquis) 5 mg PO BID KARAN Furosemide (Lasix) 20 mg IVP Q12 KARAN Last Admin: 08/12/17 10:24 Dose: 20 mg Piperacillin Sod/Tazobactam Sod (Zosyn 2.25 Gm Iv Premix) 2.25 gm in 50 mls @ 100 mls/hr IVPB Q6 KARAN Last Admin: 08/12/17 11:27 Dose: 100 mls/hr Fentanyl Citrate 2,500 mcg/ (Sodium Chloride) 250 mls @ 20.5 mls/hr IV .[id number] KARAN; 2 MCG/KG/HR PRN Reason: Protocol Last Admin: 08/12/17 10:40 Dose: Not Given Insulin Human Regular (Novolin R) 0 unit SC Q6 KARAN PRN Reason: Protocol Last Admin: 08/12/17 11:25 Dose: Not Given Metoclopramide HCl (Reglan) 10 mg IVP Q6H KARAN Last Admin: 08/12/17 11:27 Dose: 10 mg Metoprolol Tartrate (Lopressor) 2.5 mg IVP Q6 KARAN Last Admin: 08/12/17 11:31 Dose: Not Given Pantoprazole Sodium (Protonix Inj) 40 mg IVP DAILY [facility] Last Admin: 08/12/17 09:35 Dose: 40 mg Potassium Phos/Sodium Phos (Neutra-Phos) 1 pkt PO BID [facility] Last Admin: 08/12/17 10:09 Dose: 1 pkt - Labs Labs: 08/12/17 06:39 08/12/17 06:39 PT 11.9 SECONDS (9.7-12.2) 08/10/17 05:54 INR 1.1 08/10/17 05:54 APTT 24 SECONDS (21-34) 08/10/17 05:54 - Constitutional Appears: In Acute Distress, Chronically Ill - Head Exam Head Exam: ATRAUMATIC, NORMAL INSPECTION - Eye Exam Eye Exam: EOMI, Normal appearance - Neck Exam Neck Exam: Normal Inspection. absent: Tenderness - Respiratory Exam Respiratory Exam: Rhonchi, Respiratory Distress - Cardiovascular Exam Cardiovascular Exam: Tachycardia, Irregular Rhythm - GI/Abdominal Exam GI & Abdominal Exam: Guarding, Tenderness - Extremities Exam Extremities Exam: Normal Inspection. absent: Tenderness - Neurological Exam Neurological Exam: Altered, Awake, CN II-XII Intact - Skin Skin Exam: Dry, Warm Assessment and Plan (1) Chronic kidney disease, stage III (moderate) Status: Acute (2) Hypertensive chronic kidney disease with stage 1 through stage 4 chronic kidney disease, or unspecified chronic kidney disease Status: Acute (3) Atrial fibrillation, new onset Status: Acute (4) Hyponatremia with excess extracellular fluid volume Status: Acute (5) Cellulitis Status: Acute (6) SBO (small bowel obstruction) Status: Acute (7) Infected skin ulcer limited to breakdown of skin Status: Acute (8) Metabolic acidemia Status: Acute - Assessment and Plan (Free Text) Plan: Agree with IV lasix Off re-hydration If metabolic acidosis worsens can add na bicarb- if Ph around 7.3 Monitor lytes, renal function
--- NOTE | 2017-08-12 15:32 | CP.CCUPN ---
<Rachel Heart - Last Filed: 08/12/17 15:29> CCU Subjective - Physician Review Subjective (Free Text): Patient seen and examined at bedside. Patient is POD #2 ex-lap with ROMAIN, removal of ossified granuloma and ventral hernia repair. Pt under sedation and intubated. Patient awake and alert. Patient able to shake his head yes and no to questions. Patient is eager to get extubated. CCU Objective - Vital Signs / Intake & Output Vital Signs (Last 4 hours): Vital Signs Temp Pulse Resp BP Pulse Ox 08/12/17 14:05 122 H 17 94/40 L 98 08/12/17 14:00 117 H 17 98 08/12/17 13:04 125 H 12 112/51 L 98 08/12/17 13:00 127 H 13 98 08/12/17 12:04 114 H 20 106/61 98 08/12/17 12:00 98.5 F 120 H 18 96 Intake and Output (Last 8hrs): Intake & Output 08/12/17 08/12/17 08/12/17 06:59 14:59 22:59 Intake Total 1330 1090 Output Total 300 1675 Balance 1030 -585 Weight 243 lb 4.8 oz Intake: IV 20 50 Intake, IV Amount 1310 820 Left Hand 1150 700 Left Proximal Port Hand 160 120 Oral 150 Tube Feeding 70 Output: Gastric Amount 0 125 Nares 0 125 Urine 300 1550 Urethral (Wall) 300 1550 Other: # Bowel Movements 0 - Physical Exam Head: Positive for: Atraumatic, Normocephalic Pupils: Positive for: PERRL Conjunctiva: Positive for: Normal Mouth: Positive for: Moist Mucous Membranes Respiratory/Chest: Positive for: Clear to Auscultation, Good Air Exchange Cardiovascular: Positive for: Normal S1, S2, Tachycardic Abdomen: Positive for: Other (c/d/i dressing over incision ) Lower Extremity: Positive for: Swelling, Erythema Skin: Positive for: Warm, Erythematous, Other (b/l cellulitic changes ) Psychiatric: Positive for: Alert - Medications Active Medications: Active Medications Generic Name Dose Route Start Last Admin Trade Name Freq PRN Reason Stop Dose Admin Acetaminophen 650 mg 08/11/17 01:17 Tylenol 650 Mg Supp [place] Q6 PRN Temperature Albumin Human 12.5 gm 08/10/17 23:00 08/12/17 14:13 Albumin Human 25% (12.5 Gm/50 Ml) IV 08/12/17 23:01 12.5 gm Q8 KARAN Administration Apixaban 5 mg 08/12/17 18:00 Eliquis PO BID KARAN Furosemide 20 mg 08/12/17 10:15 08/12/17 10:24 Lasix IVP 20 mg Q12 KARAN Administration Piperacillin Sod/Tazobactam Sod 2.25 gm in 50 mls @ 100 mls/hr 08/10/17 10:30 08/12/17 11:27 Zosyn 2.25 Gm Iv Premix IVPB 100 mls/hr Q6 [facility] Administration Fentanyl Citrate 2,500 mcg/ 250 mls @ 20.5 mls/hr 08/10/17 22:00 08/12/17 10: 40 Sodium Chloride IV Not Given .[id number] [facility] Protocol 2 MCG/KG/HR Insulin Human Regular 0 unit 08/12/17 07:15 08/12/17 11:25 Novolin R SC Not Given Q6 [facility] Protocol Metoclopramide HCl 10 mg 08/11/17 11:15 08/12/17 11:27 Reglan IVP 10 mg Q6H [facility] Administration Metoprolol Tartrate 2.5 mg 08/12/17 10:00 08/12/17 11:31 Lopressor IVP Not Given Q6 [facility] Pantoprazole Sodium 40 mg 08/10/17 10:00 08/12/17 09:35 Protonix Inj IVP 40 mg DAILY KARAN Administration Potassium Phos/Sodium Phos 1 pkt 08/12/17 10:00 08/12/17 10:09 Neutra-Phos PO 1 pkt BID KARAN Administration - Patient Studies Lab Studies: Microbiology Studies 08/10/17 09:00 Gram Stain - Final Leg - Left Wound Culture - Preliminary Proteus Penneri Beta Hemolytic Strep Group B Gram Negative Rafa Gram Negative Rafa#2 08/10/17 06:15 Blood Culture - Preliminary Blood NO GROWTH AFTER 24 HOURS 08/10/17 05:45 Blood Culture - Preliminary Blood NO GROWTH AFTER 24 HOURS 08/10/17 08:00 Gram Stain - Final Trachasp 08/10/17 11:30 MRSA Culture (Admit) - Final Naris MRSA NOT DETECTED Lab Studies 08/12/17 08/12/1708/12/17 Range/Units 11:03 07:58 06:39 WBC (4.8-10.8) K/uL RBC (4.40-5.90) Mil/uL Hgb (12.0-18.0) g/dL Hct (35.0-51.0) % MCV (80.0-94.0) fL MCH (27.0-31.0) pg MCHC (33.0-37.0) g/dL RDW (11.5-14.5) % Plt Count (130-400) K/uL MPV (7.2-11.7) fL Neut % (Auto) (50.0-75.0) % Lymph % (Auto) (20.0-40.0) % Bay % (Auto) (0.0-10.0) % Eos % (Auto) (0.0-4.0) % Baso % (Auto) (0.0-2.0) % Neut # (1.8-7.0) K/uL Lymph # (1.0-4.3) K/uL [place] # (0.0-0.8) K/uL Eos # (0.0-0.7) K/uL Baso # (0.0-0.2) K/uL Neutrophils % (Manual) (50-75) % Lymphocytes % (Manual) (20-40) % Monocytes % (Manual) (0-10) % Platelet Estimate (NORMAL) Hypochromasia (manual) Poikilocytosis (manual Anisocytosis (manual) Target Cells Puncture Site pCO2 (35-45) mm/Hg pO2 (80-100) mm/Hg HCO3 (21-28) mmol/L ABG pH (7.35-7.45) ABG Total CO2 (22-28) mmol/L ABG O2 Saturation (95-98) % ABG Base Excess (-2.0-3.0) mmol/L [place] Test ABG Potassium (3.6-5.2) mmol/L A-a O2 Difference mm/Hg Respiratory Index Sodium 137 (132-148) mmol/l Chloride 108 H (98-107) mmol/L Glucose (75-110) mg/dl Lactate (0.7-2.1) mmol/L Vent Mode Mechanical Rate FiO2 % Tidal Volume PEEP Potassium 3.9 (3.6-5.2) mmol/L Carbon Dioxide 18 L (22-30) mmol/L Anion Gap 15 (10-20) BUN 37 H (9-20) mg/dL Creatinine 1.1 (0.8-1.5) mg/dL Est GFR ( Amer) > 60 Est GFR (Non-Af Amer) > 60 POC Glucose (mg/dL) 95 112 H (65-110) mg/dL Random Glucose 96 (75-110) mg/dL Hemoglobin A1c (4.2-6.5) % Calcium 7.5 L (8.6-10.4) mg/dl Phosphorus 2.3 L (2.5-4.5) mg/dL Magnesium 2.3 (1.6-2.3) mg/dL Total Bilirubin 1.9 H (0.2-1.3) mg/dL AST 13 L D (17-59) U/L ALT 31 (21-72) U/L Alkaline Phosphatase 38 D (38-126) U/L Total Creatine Kinase (55-170) U/L CK-MB (Mass) (0.0-3.38) ng/mL Troponin I, Quant (0.00-0.120) ng/mL Total Protein 5.4 L (6.3-8.3) g/dL Albumin 2.7 L (3.5-5.0) g/dL Globulin 2.7 (2.2-3.9) gm/dL Albumin/Globulin Ratio 1.0 (1.0-2.1) TSH 3rd Generation (0.46-4.68) mIU/L Arterial Blood Potassium (3.6-5.2) mmol/L Urine Color (YELLOW) Urine Clarity (Clear) Urine pH (5.0-8.0) Ur Specific [place] (1.003-1.030) Urine Protein (NEGATIVE) mg/dL Urine Glucose (UA) (Normal) mg/dL Urine Ketones (NEGATIVE) mg/dL Urine Blood (NEGATIVE) Urine Nitrate (NEGATIVE) Urine Bilirubin (NEGATIVE) Urine Urobilinogen (0.2-1.0) mg/dL Ur Leukocyte Esterase (Negative) Grady/uL Urine WBC (Auto) (0-5) /hpf Urine RBC (Auto) (0-3) /hpf Ur Squamous Epith Cells (0-5) /hpf Uric Acid Crystals (<OCC) /hpf Urine Bacteria (<OCC) U Random Total Protein Ur Random Sodium mmol/L 08/12/17 08/12/17 08/12/17 Range/Units 06:39 06:39 05:10 WBC 10.3 (4.8-10.8) K/uL RBC 3.22 L (4.40-5.90) Mil/uL Hgb 10.1 L D (12.0-18.0) g/dL Hct 30.6 L (35.0-51.0) % MCV 95.2 H D (80.0-94.0) fL MCH 31.4 H (27.0-31.0) pg MCHC 32.9 L (33.0-37.0) g/dL RDW 14.0 (11.5-14.5) % Plt Count 150 (130-400) K/uL MPV 8.9 (7.2-11.7) fL Neut % (Auto) 84.3 H (50.0-75.0) % Lymph % (Auto) 6.5 L (20.0-40.0) % Bay % (Auto) 8.7 (0.0-10.0) % Eos % (Auto) 0.2 (0.0-4.0) % Baso % (Auto) 0.3 (0.0-2.0) % Neut # 8.6 H (1.8-7.0) K/uL Lymph # 0.7 L (1.0-4.3) K/uL [place] # 0.9 H (0.0-0.8) K/uL Eos # 0.0 (0.0-0.7) K/uL Baso # 0.0 (0.0-0.2) K/uL Neutrophils % (Manual) 87 H (50-75) % Lymphocytes % (Manual) 5 L (20-40) % Monocytes % (Manual) 8 (0-10) % Platelet Estimate Normal (NORMAL) Hypochromasia (manual) Slight Poikilocytosis (manual Slight Anisocytosis (manual) Slight Target Cells Slight Puncture Site Lr pCO2 39 (35-45) mm/Hg pO2 99 (80-100) mm/Hg HCO3 21.1 (21-28) mmol/L ABG pH 7.33 L (7.35-7.45) ABG Total CO2 21.8 L (22-28) mmol/L ABG O2 Saturation 98.7 H (95-98) % ABG Base Excess -4.9 L (-2.0-3.0) mmol/L [place] Test Pos ABG Potassium 3.8 (3.6-5.2) mmol/L A-a O2 Difference 137.0 mm/Hg Respiratory Index 1.4 Sodium 140.0 (132-148) mmol/l Chloride 112.0 H (98-107) mmol/L Glucose 109 (75-110) mg/dl Lactate 0.7 (0.7-2.1) mmol/L Vent Mode Prvc Mechanical Rate 20 FiO2 40.0 % Tidal Volume 500 PEEP 5 Potassium (3.6-5.2) mmol/L Carbon Dioxide (22-30) mmol/L Anion Gap (10-20) BUN (9-20) mg/dL Creatinine (0.8-1.5) mg/dL Est GFR ( Amer) Est GFR (Non-Af Amer) POC Glucose (mg/dL) (65-110) mg/dL Random Glucose (75-110) mg/dL Hemoglobin A1c (4.2-6.5) % Calcium (8.6-10.4) mg/dl Phosphorus (2.5-4.5) mg/dL Magnesium (1.6-2.3) mg/dL Total Bilirubin (0.2-1.3) mg/dL AST (17-59) U/L ALT (21-72) U/L Alkaline Phosphatase (38-126) U/L Total Creatine Kinase 63 (55-170) U/L CK-MB (Mass) 0.97 (0.0-3.38) ng/mL Troponin I, Quant 0.0320 (0.00-0.120) ng/mL Total Protein (6.3-8.3) g/dL Albumin (3.5-5.0) g/dL Globulin (2.2-3.9) gm/dL Albumin/Globulin Ratio (1.0-2.1) TSH 3rd Generation (0.46-4.68) mIU/L Arterial Blood Potassium 3.8 (3.6-5.2) mmol/L Urine Color (YELLOW) Urine Clarity (Clear) Urine pH (5.0-8.0) Ur Specific [place] (1.003-1.030) Urine Protein (NEGATIVE) mg/dL Urine Glucose (UA) (Normal) mg/dL Urine Ketones (NEGATIVE) mg/dL Urine Blood (NEGATIVE) Urine Nitrate (NEGATIVE) Urine Bilirubin (NEGATIVE) Urine Urobilinogen (0.2-1.0) mg/dL Ur Leukocyte Esterase (Negative) Grady/uL Urine WBC (Auto) (0-5) /hpf Urine RBC (Auto) (0-3) /hpf Ur Squamous Epith Cells (0-5) /hpf Uric Acid Crystals (<OCC) /hpf Urine Bacteria (<OCC) U Random Total Protein Ur Random Sodium mmol/L 08/11/17 08/11/17 08/11/17 Range/Units 17:59 17:59 15:30 WBC (4.8-10.8) K/uL RBC (4.40-5.90) Mil/uL Hgb (12.0-18.0) g/dL Hct (35.0-51.0) % MCV (80.0-94.0) fL MCH (27.0-31.0) pg MCHC (33.0-37.0) g/dL RDW (11.5-14.5) % Plt Count (130-400) K/uL MPV (7.2-11.7) fL Neut % (Auto) (50.0-75.0) % Lymph % (Auto) (20.0-40.0) % Bay % (Auto) (0.0-10.0) % Eos % (Auto) (0.0-4.0) % Baso % (Auto) (0.0-2.0) % Neut # (1.8-7.0) K/uL Lymph # (1.0-4.3) K/uL [place] # (0.0-0.8) K/uL Eos # (0.0-0.7) K/uL Baso # (0.0-0.2) K/uL Neutrophils % (Manual) (50-75) % Lymphocytes % (Manual) (20-40) % Monocytes % (Manual) (0-10) % Platelet Estimate (NORMAL) Hypochromasia (manual) Poikilocytosis (manual Anisocytosis (manual) Target Cells Puncture Site pCO2 (35-45) mm/Hg pO2 (80-100) mm/Hg HCO3 (21-28) mmol/L ABG pH (7.35-7.45) ABG Total CO2 (22-28) mmol/L ABG O2 Saturation (95-98) % ABG Base Excess (-2.0-3.0) mmol/L [place] Test ABG Potassium (3.6-5.2) mmol/L A-a O2 Difference mm/Hg Respiratory Index Sodium (132-148) mmol/l Chloride (98-107) mmol/L Glucose (75-110) mg/dl Lactate (0.7-2.1) mmol/L Vent Mode Mechanical Rate FiO2 % Tidal Volume PEEP Potassium (3.6-5.2) mmol/L Carbon Dioxide (22-30) mmol/L Anion Gap (10-20) BUN (9-20) mg/dL Creatinine (0.8-1.5) mg/dL Est GFR ( Amer) Est GFR (Non-Af Amer) POC Glucose (mg/dL) (65-110) mg/dL Random Glucose (75-110) mg/dL Hemoglobin A1c 7.2 H (4.2-6.5) % Calcium (8.6-10.4) mg/dl Phosphorus (2.5-4.5) mg/dL Magnesium (1.6-2.3) mg/dL Total Bilirubin (0.2-1.3) mg/dL AST (17-59) U/L ALT (21-72) U/L Alkaline Phosphatase (38-126) U/L Total Creatine Kinase 64 (55-170) U/L CK-MB (Mass) 1.57 (0.0-3.38) ng/mL Troponin I, Quant 0.0480 (0.00-0.120) ng/mL Total Protein (6.3-8.3) g/dL Albumin (3.5-5.0) g/dL Globulin (2.2-3.9) gm/dL Albumin/Globulin Ratio (1.0-2.1) TSH 3rd Generation 1.28 (0.46-4.68) mIU/L Arterial Blood Potassium (3.6-5.2) mmol/L Urine Color (YELLOW) Urine Clarity (Clear) Urine pH (5.0-8.0) Ur Specific [place] (1.003-1.030) Urine Protein (NEGATIVE) mg/dL Urine Glucose (UA) (Normal) mg/dL Urine Ketones (NEGATIVE) mg/dL Urine Blood (NEGATIVE) Urine Nitrate (NEGATIVE) Urine Bilirubin (NEGATIVE) Urine Urobilinogen (0.2-1.0) mg/dL Ur Leukocyte Esterase (Negative) Grady/uL Urine WBC (Auto) (0-5) /hpf Urine RBC (Auto) (0-3) /hpf Ur Squamous Epith Cells (0-5) /hpf Uric Acid Crystals (<OCC) /hpf Urine Bacteria (<OCC) U Random Total Protein 28.0 H Ur Random Sodium mmol/L 08/11/17 08/11/17 Range/Units 15:25 15:25 WBC (4.8-10.8) K/uL RBC (4.40-5.90) Mil/uL Hgb (12.0-18.0) g/dL Hct (35.0-51.0) % MCV (80.0-94.0) fL MCH (27.0-31.0) pg MCHC (33.0-37.0) g/dL RDW (11.5-14.5) % Plt Count (130-400) K/uL MPV (7.2-11.7) fL Neut % (Auto) (50.0-75.0) % Lymph % (Auto) (20.0-40.0) % Bay % (Auto) (0.0-10.0) % Eos % (Auto) (0.0-4.0) % Baso % (Auto) (0.0-2.0) % Neut # (1.8-7.0) K/uL Lymph # (1.0-4.3) K/uL [place] # (0.0-0.8) K/uL Eos # (0.0-0.7) K/uL Baso # (0.0-0.2) K/uL Neutrophils % (Manual) (50-75) % Lymphocytes % (Manual) (20-40) % Monocytes % (Manual) (0-10) % Platelet Estimate (NORMAL) Hypochromasia (manual) Poikilocytosis (manual Anisocytosis (manual) Target Cells Puncture Site pCO2 (35-45) mm/Hg pO2 (80-100) mm/Hg HCO3 (21-28) mmol/L ABG pH (7.35-7.45) ABG Total CO2 (22-28) mmol/L ABG O2 Saturation (95-98) % ABG Base Excess (-2.0-3.0) mmol/L [place] Test ABG Potassium (3.6-5.2) mmol/L A-a O2 Difference mm/Hg Respiratory Index Sodium (132-148) mmol/l Chloride (98-107) mmol/L Glucose (75-110) mg/dl Lactate (0.7-2.1) mmol/L Vent Mode Mechanical Rate FiO2 % Tidal Volume PEEP Potassium (3.6-5.2) mmol/L Carbon Dioxide (22-30) mmol/L Anion Gap (10-20) BUN (9-20) mg/dL Creatinine (0.8-1.5) mg/dL Est GFR ( Amer) Est GFR (Non-Af Amer) POC Glucose (mg/dL) (65-110) mg/dL Random Glucose (75-110) mg/dL Hemoglobin A1c (4.2-6.5) % Calcium (8.6-10.4) mg/dl Phosphorus (2.5-4.5) mg/dL Magnesium (1.6-2.3) mg/dL Total Bilirubin (0.2-1.3) mg/dL AST (17-59) U/L ALT (21-72) U/L Alkaline Phosphatase (38-126) U/L Total Creatine Kinase (55-170) U/L CK-MB (Mass) (0.0-3.38) ng/mL Troponin I, Quant (0.00-0.120) ng/mL Total Protein (6.3-8.3) g/dL Albumin (3.5-5.0) g/dL Globulin (2.2-3.9) gm/dL Albumin/Globulin Ratio (1.0-2.1) TSH 3rd Generation (0.46-4.68) mIU/L Arterial Blood Potassium (3.6-5.2) mmol/L Urine Color Yellow (YELLOW) Urine Clarity Hazy (Clear) Urine pH 5.0 (5.0-8.0) Ur Specific [place] 1.020 (1.003-1.030) Urine Protein Negative (NEGATIVE) mg/dL Urine Glucose (UA) Normal (Normal) mg/dL Urine Ketones Negative (NEGATIVE) mg/dL Urine Blood 2+ H (NEGATIVE) Urine Nitrate Negative (NEGATIVE) Urine Bilirubin Negative (NEGATIVE) Urine Urobilinogen Normal (0.2-1.0) mg/dL Ur Leukocyte Esterase 3+ H (Negative) Grady/uL Urine WBC (Auto) 31 H (0-5) /hpf Urine RBC (Auto) 13 H (0-3) /hpf Ur Squamous Epith Cells < 1 (0-5) /hpf Uric Acid Crystals Rare (<OCC) /hpf Urine Bacteria Rare (<OCC) U Random Total Protein Cancelled Ur Random Sodium 35 mmol/L Laboratory Results - last 24 hr 08/11/17 08/11/17 08/11/17 15:25 15:25 15:30 WBC RBC Hgb Hct MCV MCH MCHC RDW Plt Count MPV Neut % (Auto) Lymph % (Auto) Bay % (Auto) Eos % (Auto) Baso % (Auto) Neut # Lymph # [place] # Eos # Baso # Neutrophils % (Manual) Lymphocytes % (Manual) Monocytes % (Manual) Platelet Estimate Hypochromasia (manual) Poikilocytosis (manual Anisocytosis (manual) Target Cells Puncture Site pCO2 pO2 HCO3 ABG pH ABG Total CO2 ABG O2 Saturation ABG Base Excess [place] Test ABG Potassium A-a O2 Difference Respiratory Index Sodium Chloride Glucose Lactate Vent Mode Mechanical Rate FiO2 Tidal Volume PEEP Potassium Carbon Dioxide Anion Gap BUN Creatinine Est GFR ( Amer) Est GFR (Non-Af Amer) POC Glucose (mg/dL) Random Glucose Hemoglobin A1c Calcium Phosphorus Magnesium Total Bilirubin AST ALT Alkaline Phosphatase Total Creatine Kinase CK-MB (Mass) Troponin I, Quant Total Protein Albumin Globulin Albumin/Globulin Ratio TSH 3rd Generation Arterial Blood Potassium Urine Color Yellow Urine Clarity Hazy Urine pH 5.0 Ur Specific [place] 1.020 Urine Protein Negative Urine Glucose (UA) Normal Urine Ketones Negative Urine Blood 2+ H Urine Nitrate Negative Urine Bilirubin Negative Urine Urobilinogen Normal Ur Leukocyte Esterase 3+ H Urine WBC (Auto) 31 H Urine RBC (Auto) 13 H Ur Squamous Epith Cells < 1 Uric Acid Crystals Rare Urine Bacteria Rare U Random Total Protein Cancelled 28.0 H Ur Random Sodium 35 08/11/17 08/11/17 08/12/17 17:59 17:59 05:10 WBC RBC Hgb Hct MCV MCH MCHC RDW Plt Count MPV Neut % (Auto) Lymph % (Auto) Bay % (Auto) Eos % (Auto) Baso % (Auto) Neut # Lymph # [place] # Eos # Baso # Neutrophils % (Manual) Lymphocytes % (Manual) Monocytes % (Manual) Platelet Estimate Hypochromasia (manual) Poikilocytosis (manual Anisocytosis (manual) Target Cells Puncture Site Lr pCO2 39 pO2 99 HCO3 21.1 ABG pH 7.33 L ABG Total CO2 21.8 L ABG O2 Saturation 98.7 H ABG Base Excess -4.9 L [place] Test Pos ABG Potassium 3.8 A-a O2 Difference 137.0 Respiratory Index 1.4 Sodium 140.0 Chloride 112.0 H Glucose 109 Lactate 0.7 Vent Mode Prvc Mechanical Rate 20 FiO2 40.0 Tidal Volume 500 PEEP 5 Potassium Carbon Dioxide Anion Gap BUN Creatinine Est GFR ( Amer) Est GFR (Non-Af Amer) POC Glucose (mg/dL) Random Glucose Hemoglobin A1c 7.2 H Calcium Phosphorus Magnesium Total Bilirubin AST ALT Alkaline Phosphatase Total Creatine Kinase 64 CK-MB (Mass) 1.57 Troponin I, Quant 0.0480 Total Protein Albumin Globulin Albumin/Globulin Ratio TSH 3rd Generation 1.28 Arterial Blood Potassium 3.8 Urine Color Urine Clarity Urine pH Ur Specific [place] Urine Protein Urine Glucose (UA) Urine Ketones Urine Blood Urine Nitrate Urine Bilirubin Urine Urobilinogen Ur Leukocyte Esterase Urine WBC (Auto) Urine RBC (Auto) Ur Squamous Epith Cells Uric Acid Crystals Urine Bacteria U Random Total Protein Ur Random Sodium 08/12/17 08/12/17 08/12/17 06:39 06:39 06:39 WBC 10.3 RBC 3.22 L Hgb 10.1 L D Hct 30.6 L MCV 95.2 H D MCH 31.4 H MCHC 32.9 L RDW 14.0 Plt Count 150 MPV 8.9 Neut % (Auto) 84.3 H Lymph % (Auto) 6.5 L [place] % (Auto) 8.7 Eos % (Auto) 0.2 Baso % (Auto) 0.3 Neut # 8.6 H Lymph # 0.7 L [place] # 0.9 H Eos # 0.0 Baso # 0.0 Neutrophils % (Manual) 87 H Lymphocytes % (Manual) 5 L Monocytes % (Manual) 8 Platelet Estimate Normal Hypochromasia (manual) Slight Poikilocytosis (manual Slight Anisocytosis (manual) Slight Target Cells Slight Puncture Site pCO2 pO2 HCO3 ABG pH ABG Total CO2 ABG O2 Saturation ABG Base Excess [place] Test ABG Potassium A-a O2 Difference Respiratory Index Sodium 137 Chloride 108 H Glucose Lactate Vent Mode Mechanical Rate FiO2 Tidal Volume PEEP Potassium 3.9 Carbon Dioxide 18 L Anion Gap 15 BUN 37 H Creatinine 1.1 Est GFR ( Amer) > 60 Est GFR (Non-Af Amer) > 60 POC Glucose (mg/dL) Random Glucose 96 Hemoglobin A1c Calcium 7.5 L Phosphorus 2.3 L Magnesium 2.3 Total Bilirubin 1.9 H AST 13 L D ALT 31 Alkaline Phosphatase 38 D Total Creatine Kinase 63 CK-MB (Mass) 0.97 Troponin I, Quant 0.0320 Total Protein 5.4 L Albumin 2.7 L Globulin 2.7 Albumin/Globulin Ratio 1.0 TSH 3rd Generation Arterial Blood Potassium Urine Color Urine Clarity Urine pH Ur Specific [place] Urine Protein Urine Glucose (UA) Urine Ketones Urine Blood Urine Nitrate Urine Bilirubin Urine Urobilinogen Ur Leukocyte Esterase Urine WBC (Auto) Urine RBC (Auto) Ur Squamous Epith Cells Uric Acid Crystals Urine Bacteria U Random Total Protein Ur Random Sodium 08/12/17 08/12/17 07:58 11:03 WBC RBC Hgb Hct MCV MCH MCHC RDW Plt Count MPV Neut % (Auto) Lymph % (Auto) [place] % (Auto) Eos % (Auto) Baso % (Auto) Neut # Lymph # [place] # Eos # Baso # Neutrophils % (Manual) Lymphocytes % (Manual) Monocytes % (Manual) Platelet Estimate Hypochromasia (manual) Poikilocytosis (manual Anisocytosis (manual) Target Cells Puncture Site pCO2 pO2 HCO3 ABG pH ABG Total CO2 ABG O2 Saturation ABG Base Excess [place] Test ABG Potassium A-a O2 Difference Respiratory Index Sodium Chloride Glucose Lactate Vent Mode Mechanical Rate FiO2 Tidal Volume PEEP Potassium Carbon Dioxide Anion Gap BUN Creatinine Est GFR ( Amer) Est GFR (Non-Af Amer) POC Glucose (mg/dL) 112 H 95 Random Glucose Hemoglobin A1c Calcium Phosphorus Magnesium Total Bilirubin AST ALT Alkaline Phosphatase Total Creatine Kinase CK-MB (Mass) Troponin I, Quant Total Protein Albumin Globulin Albumin/Globulin Ratio TSH 3rd Generation Arterial Blood Potassium Urine Color Urine Clarity Urine pH Ur Specific [place] Urine Protein Urine Glucose (UA) Urine Ketones Urine Blood Urine Nitrate Urine Bilirubin Urine Urobilinogen Ur Leukocyte Esterase Urine WBC (Auto) Urine RBC (Auto) Ur Squamous Epith Cells Uric Acid Crystals Urine Bacteria U Random Total Protein Ur Random Sodium Fingerstick Blood Sugar Results: 95 Review of Systems - Review of Systems Systems not reviewed;Unavailable: Intubated - Cardiovascular Cardiovascular: absent: Chest Pain, Dyspnea - Gastrointestinal Gastrointestinal: Constipation Assessment/Plan - Assessment and Plan (Free Text) Assessment: 72 M presented to the ED 11/ with constipation and suspected sepsis. Now POD # 2 ex-lap for SBO secondary to ventral hernia. Neuro: alert and responsive - Fentanyl lowered to 1mcg/kg/hr - Tylenol 650mg [place] Q6 PRN for pain Pulm: Intubated, saturating and ventilating well - pO2 97 - pCO2 39 - Vent: PRVC 07/14 - Plan to extubate in 1 to 2 days once fluid overload is resolved Cardio: hemodynamically stable, atrial fibrillation - 08/10 EKG showed atrial fibrillation, HR has been persistently elevated - Dr. Henriquez consulted, help appreciated - CHADS-VASc score: 2 - HASBLED score: 1 - Eliquis 5mg BID - Lopressor 2.5 mg IVP Q6 - A-line removed Nephro: Metabolic acidosis compensated by respiratory alkalosis - 11/ BUN 37/Cr 1.1 - 11/3 ABG pH 7.33 pCO2 39, HCO3 21.1 - Dr. Luna consulted, help appreciated - Holding NS in light of adequate urine output and fluid overload - lasix 20mg IVP Q12 - Albumin 12.5gm/50ml IV Q8 GI: POD #2 ex-lap for SBO, incarcerated hernia repair - Dr. Ceja consulted, help appreciated - NGT - glucerna feeds @20 - Metoclopramide for n/v Endo: Diabetes - A1c of 7.2 - TSH 1.28 (normal) - Start ISS, low dose - Accucheck Q6h Heme: No acute issues: - Platelets down to 150, thrombophilia resolved ID: Sepsis, resolving Diagnostic Data: - WBC decreased to 10.3 - Lactate 0.7 - Awaiting 08/10 blood culture, urine culture and sputum culture results -MRSA negative Management: - Zosyn Derm: lower extremity cellulitis - 08/13 final culture results of left leg wound showed proteus penneri and Group B Strep - Wound care nurse consult, dressing changes every other day PPX: Management: GI: Protonix 40mg IVP DVT: patient on Eliquis 5mg BID <Dipesh Hurtado - Last Filed: 08/12/17 16:25> CCU Objective - Vital Signs / Intake & Output Vital Signs (Last 4 hours): Vital Signs Pulse Resp BP Pulse Ox 08/12/17 14:05 122 H 17 94/40 L 98 08/12/17 14:00 117 H 17 98 08/12/17 13:04 125 H 12 112/51 L 98 08/12/17 13:00 127 H 13 98 Intake and Output (Last 8hrs): Intake & Output 08/12/17 08/12/17 08/12/17 06:59 14:59 22:59 Intake Total 1330 1090 Output Total 300 1675 Balance 1030 -585 Weight 243 lb 4.8 oz Intake: IV 20 50 Intake, IV Amount 1310 820 Left Hand 1150 700 Left Proximal Port Hand 160 120 Oral 150 Tube Feeding 70 Output: Gastric Amount 0 125 Nares 0 125 Urine 300 1550 Urethral (Wall) 300 1550 Other: # Bowel Movements 0 - Medications Active Medications: Active Medications Generic Name Dose Route Start Last Admin Trade Name Freq PRN Reason Stop Dose Admin Acetaminophen 650 mg 08/11/17 01:17 Tylenol 650 Mg Supp W[place] Q6 PRN Temperature Albumin Human 12.5 gm 08/10/17 23:00 08/12/17 14:13 Albumin Human 25% (12.5 Gm/50 Ml) IV 08/12/17 23:01 12.5 gm Q8 KARAN Administration Apixaban 5 mg 08/12/17 18:00 Eliquis PO BID KARAN Furosemide 20 mg 08/12/17 10:15 08/12/17 10:24 Lasix IVP 20 mg Q12 KARAN Administration Piperacillin Sod/Tazobactam Sod 2.25 gm in 50 mls @ 100 mls/hr 08/10/17 10:30 08/12/17 11:27 Zosyn 2.25 Gm Iv Premix IVPB 100 mls/hr Q6 KARAN Administration Fentanyl Citrate 2,500 mcg/ 250 mls @ 20.5 mls/hr 08/10/17 22:00 08/12/17 10: 40 Sodium Chloride IV Not Given .[id number] KARAN Protocol 2 MCG/KG/HR Insulin Human Regular 0 unit 08/12/17 07:15 08/12/17 11:25 Novolin R SC Not Given Q6 [facility] Protocol Metoclopramide HCl 10 mg 08/11/17 11:15 08/12/17 11:27 Reglan IVP 10 mg Q6H KARAN Administration Metoprolol Tartrate 2.5 mg 08/12/17 10:00 08/12/17 11:31 Lopressor IVP Not Given Q6 KARAN Pantoprazole Sodium 40 mg 08/10/17 10:00 08/12/17 09:35 Protonix Inj IVP 40 mg DAILY KARAN Administration Potassium Phos/Sodium Phos 1 pkt 08/12/17 10:00 08/12/17 10:09 Neutra-Phos PO 1 pkt BID KARAN Administration - Patient Studies Lab Studies: Microbiology Studies 08/10/17 06:15 Blood Culture - Preliminary Blood NO GROWTH AFTER 48 HOURS 08/10/17 05:45 Blood Culture - Preliminary Blood NO GROWTH AFTER 48 HOURS 08/10/17 09:00 Gram Stain - Final Leg - Left Wound Culture - Preliminary Proteus Penneri Beta Hemolytic Strep Group B Gram Negative Rafa Gram Negative Rafa#2 08/10/17 08:00 Gram Stain - Final Trachasp Lab Studies 08/12/17 08/12/17 08/12/17 Range/Units 11:03 07:58 06:39 WBC (4.8-10.8) K/uL RBC (4.40-5.90) Mil/uL Hgb (12.0-18.0) g/dL Hct (35.0-51.0) % MCV (80.0-94.0) fL MCH (27.0-31.0) pg MCHC (33.0-37.0) g/dL RDW (11.5-14.5) % Plt Count (130-400) K/uL MPV (7.2-11.7) fL Neut % (Auto) (50.0-75.0) % Lymph % (Auto) (20.0-40.0) % Bay % (Auto) (0.0-10.0) % Eos % (Auto) (0.0-4.0) % Baso % (Auto) (0.0-2.0) % Neut # (1.8-7.0) K/uL Lymph # (1.0-4.3) K/uL Bay # (0.0-0.8) K/uL Eos # (0.0-0.7) K/uL Baso # (0.0-0.2) K/uL Neutrophils % (Manual) (50-75) % Lymphocytes % (Manual) (20-40) % Monocytes % (Manual) (0-10) % Platelet Estimate (NORMAL) Hypochromasia (manual) Poikilocytosis (manual Anisocytosis (manual) Target Cells Puncture Site pCO2 (35-45) mm/Hg pO2 (80-100) mm/Hg HCO3 (21-28) mmol/L ABG pH (7.35-7.45) ABG Total CO2 (22-28) mmol/L ABG O2 Saturation (95-98) % ABG Base Excess (-2.0-3.0) mmol/L [place] Test ABG Potassium (3.6-5.2) mmol/L A-a O2 Difference mm/Hg Respiratory Index Sodium 137 (132-148) mmol/l Chloride 108 H (98-107) mmol/L Glucose (75-110) mg/dl Lactate (0.7-2.1) mmol/L Vent Mode Mechanical Rate FiO2 % Tidal Volume PEEP Potassium 3.9 (3.6-5.2) mmol/L Carbon Dioxide 18 L (22-30) mmol/L Anion Gap 15 (10-20) BUN 37 H (9-20) mg/dL Creatinine 1.1 (0.8-1.5) mg/dL Est GFR ( Amer) > 60 Est GFR (Non-Af Amer) > 60 POC Glucose (mg/dL) 95 112 H (65-110) mg/dL Random Glucose 96 (75-110) mg/dL Hemoglobin A1c (4.2-6.5) % Calcium 7.5 L (8.6-10.4) mg/dl Phosphorus 2.3 L (2.5-4.5) mg/dL Magnesium 2.3 (1.6-2.3) mg/dL Total Bilirubin 1.9 H (0.2-1.3) mg/dL AST 13 L D (17-59) U/L ALT 31 (21-72) U/L Alkaline Phosphatase 38 D (38-126) U/L Total Creatine Kinase (55-170) U/L CK-MB (Mass) (0.0-3.38) ng/mL Troponin I, Quant (0.00-0.120) ng/mL Total Protein 5.4 L (6.3-8.3) g/dL Albumin 2.7 L (3.5-5.0) g/dL Globulin 2.7 (2.2-3.9) gm/dL Albumin/Globulin Ratio 1.0 (1.0-2.1) TSH 3rd Generation (0.46-4.68) mIU/L Arterial Blood Potassium (3.6-5.2) mmol/L U Random Total Protein 08/12/17 08/12/17 08/12/17 Range/Units 06:39 06:39 05:10 WBC 10.3 (4.8-10.8) K/uL RBC 3.22 L (4.40-5.90) Mil/uL Hgb 10.1 L D (12.0-18.0) g/dL Hct 30.6 L (35.0-51.0) % MCV 95.2 H D (80.0-94.0) fL MCH 31.4 H (27.0-31.0) pg MCHC 32.9 L (33.0-37.0) g/dL RDW 14.0 (11.5-14.5) % Plt Count 150 (130-400) K/uL MPV 8.9 (7.2-11.7) fL Neut % (Auto) 84.3 H (50.0-75.0) % Lymph % (Auto) 6.5 L (20.0-40.0) % Bay % (Auto) 8.7 (0.0-10.0) % Eos % (Auto) 0.2 (0.0-4.0) % Baso % (Auto) 0.3 (0.0-2.0) % Neut # 8.6 H (1.8-7.0) K/uL Lymph # 0.7 L (1.0-4.3) K/uL Bay # 0.9 H (0.0-0.8) K/uL Eos # 0.0 (0.0-0.7) K/uL Baso # 0.0 (0.0-0.2) K/uL Neutrophils % (Manual) 87 H (50-75) % Lymphocytes % (Manual) 5 L (20-40) % Monocytes % (Manual) 8 (0-10) % Platelet Estimate Normal (NORMAL) Hypochromasia (manual) Slight Poikilocytosis (manual Slight Anisocytosis (manual) Slight Target Cells Slight Puncture Site Lr pCO2 39 (35-45) mm/Hg pO2 99 (80-100) mm/Hg HCO3 21.1 (21-28) mmol/L ABG pH 7.33 L (7.35-7.45) ABG Total CO2 21.8 L (22-28) mmol/L ABG O2 Saturation 98.7 H (95-98) % ABG Base Excess -4.9 L (-2.0-3.0) mmol/L [place] Test Pos ABG Potassium 3.8 (3.6-5.2) mmol/L A-a O2 Difference 137.0 mm/Hg Respiratory Index 1.4 Sodium 140.0 (132-148) mmol/l Chloride 112.0 H (98-107) mmol/L Glucose 109 (75-110) mg/dl Lactate 0.7 (0.7-2.1) mmol/L Vent Mode Prvc Mechanical Rate 20 FiO2 40.0 % Tidal Volume 500 PEEP 5 Potassium (3.6-5.2) mmol/L Carbon Dioxide (22-30) mmol/L Anion Gap (10-20) BUN (9-20) mg/dL Creatinine (0.8-1.5) mg/dL Est GFR ( Amer) Est GFR (Non-Af Amer) POC Glucose (mg/dL) (65-110) mg/dL Random Glucose (75-110) mg/dL Hemoglobin A1c (4.2-6.5) % Calcium (8.6-10.4) mg/dl Phosphorus (2.5-4.5) mg/dL Magnesium (1.6-2.3) mg/dL Total Bilirubin (0.2-1.3) mg/dL AST (17-59) U/L ALT (21-72) U/L Alkaline Phosphatase (38-126) U/L Total Creatine Kinase 63 (55-170) U/L CK-MB (Mass) 0.97 (0.0-3.38) ng/mL Troponin I, Quant 0.0320 (0.00-0.120) ng/mL Total Protein (6.3-8.3) g/dL Albumin (3.5-5.0) g/dL Globulin (2.2-3.9) gm/dL Albumin/Globulin Ratio (1.0-2.1) TSH 3rd Generation (0.46-4.68) mIU/L Arterial Blood Potassium 3.8 (3.6-5.2) mmol/L U Random Total Protein 08/11/17 08/11/17 08/11/17 Range/Units 17:59 17:59 15:30 WBC (4.8-10.8) K/uL RBC (4.40-5.90) Mil/uL Hgb (12.0-18.0) g/dL Hct (35.0-51.0) % MCV (80.0-94.0) fL MCH (27.0-31.0) pg MCHC (33.0-37.0) g/dL RDW (11.5-14.5) % Plt Count (130-400) K/uL MPV (7.2-11.7) fL Neut % (Auto) (50.0-75.0) % Lymph % (Auto) (20.0-40.0) % Bay % (Auto) (0.0-10.0) % Eos % (Auto) (0.0-4.0) % Baso % (Auto) (0.0-2.0) % Neut # (1.8-7.0) K/uL Lymph # (1.0-4.3) K/uL Bay # (0.0-0.8) K/uL Eos # (0.0-0.7) K/uL Baso # (0.0-0.2) K/uL Neutrophils % (Manual) (50-75) % Lymphocytes % (Manual) (20-40) % Monocytes % (Manual) (0-10) % Platelet Estimate (NORMAL) Hypochromasia (manual) Poikilocytosis (manual Anisocytosis (manual) Target Cells Puncture Site pCO2 (35-45) mm/Hg pO2 (80-100) mm/Hg HCO3 (21-28) mmol/L ABG pH (7.35-7.45) ABG Total CO2 (22-28) mmol/L ABG O2 Saturation (95-98) % ABG Base Excess (-2.0-3.0) mmol/L [place] Test ABG Potassium (3.6-5.2) mmol/L A-a O2 Difference mm/Hg Respiratory Index Sodium (132-148) mmol/l Chloride (98-107) mmol/L Glucose (75-110) mg/dl Lactate (0.7-2.1) mmol/L Vent Mode Mechanical Rate FiO2 % Tidal Volume PEEP Potassium (3.6-5.2) mmol/L Carbon Dioxide (22-30) mmol/L Anion Gap (10-20) BUN (9-20) mg/dL Creatinine (0.8-1.5) mg/dL Est GFR ( Amer) Est GFR (Non-Af Amer) POC Glucose (mg/dL) (65-110) mg/dL Random Glucose (75-110) mg/dL Hemoglobin A1c 7.2 H (4.2-6.5) % Calcium (8.6-10.4) mg/dl Phosphorus (2.5-4.5) mg/dL Magnesium (1.6-2.3) mg/dL Total Bilirubin (0.2-1.3) mg/dL AST (17-59) U/L ALT (21-72) U/L Alkaline Phosphatase (38-126) U/L Total Creatine Kinase 64 (55-170) U/L CK-MB (Mass) 1.57 (0.0-3.38) ng/mL Troponin I, Quant 0.0480 (0.00-0.120) ng/mL Total Protein (6.3-8.3) g/dL Albumin (3.5-5.0) g/dL Globulin (2.2-3.9) gm/dL Albumin/Globulin Ratio (1.0-2.1) TSH 3rd Generation 1.28 (0.46-4.68) mIU/L Arterial Blood Potassium (3.6-5.2) mmol/L U Random Total Protein 28.0 H 08/11/17 Range/Units 15:25 WBC (4.8-10.8) K/uL RBC (4.40-5.90) Mil/uL Hgb (12.0-18.0) g/dL Hct (35.0-51.0) % MCV (80.0-94.0) fL MCH (27.0-31.0) pg MCHC (33.0-37.0) g/dL RDW (11.5-14.5) % Plt Count (130-400) K/uL MPV (7.2-11.7) fL Neut % (Auto) (50.0-75.0) % Lymph % (Auto) (20.0-40.0) % Bay % (Auto) (0.0-10.0) % Eos % (Auto) (0.0-4.0) % Baso % (Auto) (0.0-2.0) % Neut # (1.8-7.0) K/uL Lymph # (1.0-4.3) K/uL Bay # (0.0-0.8) K/uL Eos # (0.0-0.7) K/uL Baso # (0.0-0.2) K/uL Neutrophils % (Manual) (50-75) % Lymphocytes % (Manual) (20-40) % Monocytes % (Manual) (0-10) % Platelet Estimate (NORMAL) Hypochromasia (manual) Poikilocytosis (manual Anisocytosis (manual) Target Cells Puncture Site pCO2 (35-45) mm/Hg pO2 (80-100) mm/Hg HCO3 (21-28) mmol/L ABG pH (7.35-7.45) ABG Total CO2 (22-28) mmol/L ABG O2 Saturation (95-98) % ABG Base Excess (-2.0-3.0) mmol/L [place] Test ABG Potassium (3.6-5.2) mmol/L A-a O2 Difference mm/Hg Respiratory Index Sodium (132-148) mmol/l Chloride (98-107) mmol/L Glucose (75-110) mg/dl Lactate (0.7-2.1) mmol/L Vent Mode Mechanical Rate FiO2 % Tidal Volume PEEP Potassium (3.6-5.2) mmol/L Carbon Dioxide (22-30) mmol/L Anion Gap (10-20) BUN (9-20) mg/dL Creatinine (0.8-1.5) mg/dL Est GFR ( Amer) Est GFR (Non-Af Amer) POC Glucose (mg/dL) (65-110) mg/dL Random Glucose (75-110) mg/dL Hemoglobin A1c (4.2-6.5) % Calcium (8.6-10.4) mg/dl Phosphorus (2.5-4.5) mg/dL Magnesium (1.6-2.3) mg/dL Total Bilirubin (0.2-1.3) mg/dL AST (17-59) U/L ALT (21-72) U/L Alkaline Phosphatase (38-126) U/L Total Creatine Kinase (55-170) U/L CK-MB (Mass) (0.0-3.38) ng/mL Troponin I, Quant (0.00-0.120) ng/mL Total Protein (6.3-8.3) g/dL Albumin (3.5-5.0) g/dL Globulin (2.2-3.9) gm/dL Albumin/Globulin Ratio (1.0-2.1) TSH 3rd Generation (0.46-4.68) mIU/L Arterial Blood Potassium (3.6-5.2) mmol/L U Random Total Protein Cancelled Laboratory Results - last 24 hr 08/11/17 08/11/17 08/11/17 15:25 15:30 17:59 WBC RBC Hgb Hct MCV MCH MCHC RDW Plt Count MPV Neut % (Auto) Lymph % (Auto) Bay % (Auto) Eos % (Auto) Baso % (Auto) Neut # Lymph # Bay # Eos # Baso # Neutrophils % (Manual) Lymphocytes % (Manual) Monocytes % (Manual) Platelet Estimate Hypochromasia (manual) Poikilocytosis (manual Anisocytosis (manual) Target Cells Puncture Site pCO2 pO2 HCO3 ABG pH ABG Total CO2 ABG O2 Saturation ABG Base Excess [place] Test ABG Potassium A-a O2 Difference Respiratory Index Sodium Chloride Glucose Lactate Vent Mode Mechanical Rate FiO2 Tidal Volume PEEP Potassium Carbon Dioxide Anion Gap BUN Creatinine Est GFR ( Amer) Est GFR (Non-Af Amer) POC Glucose (mg/dL) Random Glucose Hemoglobin A1c 7.2 H Calcium Phosphorus Magnesium Total Bilirubin AST ALT Alkaline Phosphatase Total Creatine Kinase CK-MB (Mass) Troponin I, Quant Total Protein Albumin Globulin Albumin/Globulin Ratio TSH 3rd Generation Arterial Blood Potassium U Random Total Protein Cancelled 28.0 H 08/11/17 08/12/17 08/12/17 17:59 05:10 06:39 WBC RBC Hgb Hct MCV MCH MCHC RDW Plt Count MPV Neut % (Auto) Lymph % (Auto) Bay % (Auto) Eos % (Auto) Baso % (Auto) Neut # Lymph # Bay # Eos # Baso # Neutrophils % (Manual) Lymphocytes % (Manual) Monocytes % (Manual) Platelet Estimate Hypochromasia (manual) Poikilocytosis (manual Anisocytosis (manual) Target Cells Puncture Site Lr pCO2 39 pO2 99 HCO3 21.1 ABG pH 7.33 L ABG Total CO2 21.8 L ABG O2 Saturation 98.7 H ABG Base Excess -4.9 L [place] Test Pos ABG Potassium 3.8 A-a O2 Difference 137.0 Respiratory Index 1.4 Sodium 140.0 Chloride 112.0 H Glucose 109 Lactate 0.7 Vent Mode Prvc Mechanical Rate 20 FiO2 40.0 Tidal Volume 500 PEEP 5 Potassium Carbon Dioxide Anion Gap BUN Creatinine Est GFR ( Amer) Est GFR (Non-Af Amer) POC Glucose (mg/dL) Random Glucose Hemoglobin A1c Calcium Phosphorus Magnesium Total Bilirubin AST ALT Alkaline Phosphatase Total Creatine Kinase 64 63 CK-MB (Mass) 1.57 0.97 Troponin I, Quant 0.0480 0.0320 Total Protein Albumin Globulin Albumin/Globulin Ratio TSH 3rd Generation 1.28 Arterial Blood Potassium 3.8 U Random Total Protein 08/12/17 08/12/17 08/12/17 06:39 06:39 07:58 WBC 10.3 RBC 3.22 L Hgb 10.1 L D Hct 30.6 L MCV 95.2 H D MCH 31.4 H MCHC 32.9 L RDW 14.0 Plt Count 150 MPV 8.9 Neut % (Auto) 84.3 H Lymph % (Auto) 6.5 L Bay % (Auto) 8.7 Eos % (Auto) 0.2 Baso % (Auto) 0.3 Neut # 8.6 H Lymph # 0.7 L [place] # 0.9 H Eos # 0.0 Baso # 0.0 Neutrophils % (Manual) 87 H Lymphocytes % (Manual) 5 L Monocytes % (Manual) 8 Platelet Estimate Normal Hypochromasia (manual) Slight Poikilocytosis (manual Slight Anisocytosis (manual) Slight Target Cells Slight Puncture Site pCO2 pO2 HCO3 ABG pH ABG Total CO2 ABG O2 Saturation ABG Base Excess [place] Test ABG Potassium A-a O2 Difference Respiratory Index Sodium 137 Chloride 108 H Glucose Lactate Vent Mode Mechanical Rate FiO2 Tidal Volume PEEP Potassium 3.9 Carbon Dioxide 18 L Anion Gap 15 BUN 37 H Creatinine 1.1 Est GFR ( Amer) > 60 Est GFR (Non-Af Amer) > 60 POC Glucose (mg/dL) 112 H Random Glucose 96 Hemoglobin A1c Calcium 7.5 L Phosphorus 2.3 L Magnesium 2.3 Total Bilirubin 1.9 H AST 13 L D ALT 31 Alkaline Phosphatase 38 D Total Creatine Kinase CK-MB (Mass) Troponin I, Quant Total Protein 5.4 L Albumin 2.7 L Globulin 2.7 Albumin/Globulin Ratio 1.0 TSH 3rd Generation Arterial Blood Potassium U Random Total Protein 08/12/17 11:03 WBC RBC Hgb Hct MCV MCH MCHC RDW Plt Count MPV Neut % (Auto) Lymph % (Auto) Bay % (Auto) Eos % (Auto) Baso % (Auto) Neut # Lymph # Bay # Eos # Baso # Neutrophils % (Manual) Lymphocytes % (Manual) Monocytes % (Manual) Platelet Estimate Hypochromasia (manual) Poikilocytosis (manual Anisocytosis (manual) Target Cells Puncture Site pCO2 pO2 HCO3 ABG pH ABG Total CO2 ABG O2 Saturation ABG Base Excess [place] Test ABG Potassium A-a O2 Difference Respiratory Index Sodium Chloride Glucose Lactate Vent Mode Mechanical Rate FiO2 Tidal Volume PEEP Potassium Carbon Dioxide Anion Gap BUN Creatinine Est GFR ( Amer) Est GFR (Non-Af Amer) POC Glucose (mg/dL) 95 Random Glucose Hemoglobin A1c Calcium Phosphorus Magnesium Total Bilirubin AST ALT Alkaline Phosphatase Total Creatine Kinase CK-MB (Mass) Troponin I, Quant Total Protein Albumin Globulin Albumin/Globulin Ratio TSH 3rd Generation Arterial Blood Potassium U Random Total Protein Attending/Attestation - Attestation I have personally seen and examined this patient.: Yes I have fully participated in the care of the patient.: Yes I have reviewed all pertinent clinical information: Yes Notes (Text): 08/12/17 16:08 I have seen and examined the patient. Medical records, lab studies, and imaging were reviewed by me and a management plan was formulated on multidisciplinary rounds with resident Dr. Heart. I agree with their documented assessment and plan. Started on PS trials, tolerating well. Diuresing to improve pulmonary mechanics to optimize for extubation. Starting on Eliquis for Afib (CHADS2 - 2) . Lopressor IV for rate control. Zosyn for sepsis from cellulitis. Trophic feeds to stimulate gut. Critical Care Time 35 minutes. Multi-disciplinary rounds were performed with house staff, nursing, speech therapy, respiratory therapy, pharmacy and nutrition with integrated input from the primary team/attending and other consulting services. The documented time is cumulative and includes review of patient data/exams/labs/chart review and examination of the patient on rounds and throughout the day; time is exclusive of any procedures or teaching time.
--- NOTE | 2017-08-12 16:34 | CARD ---
APPROVED REPORT EKG Measurement Heart [id number] <Conclusion> Atrial fibrillation ST & T wave abnormality, nonspecific. Abnormal ECG
--- NOTE | 2017-08-12 16:35 | CARD ---
APPROVED REPORT EKG Measurement Heart [id number] <Conclusion> Atrial fibrillation with rapid ventricular response ST & T wave abnormality, nonspecific Abnormal ECG
--- NOTE | 2017-08-12 16:37 | CARD ---
APPROVED REPORT EKG Measurement Heart [id number] <Conclusion> Sinus tachycardia ST & T wave abnormality, nonspecific. Q waves inferior leads noted. Abnormal ECG
[2017-08-12] MEDS ORDERED: Naloxone 0.4 mg/ml Inj (Adult) IVP ONE (16:41)
[2017-08-12] MEDS ORDERED: Naloxone 0.4 mg/ml Inj (Adult) ONE (16:44)
[2017-08-12 18:37] LABS: ABG ALLEN TEST POS; ARTERIAL BLOOD GAS MODE BiPAP; ARTERIAL BLOOD HGB O2 SAT 96.4 % (95.0-98.0); CARBOXYHEMOGLOBIN 1.4 % (0.5-1.5); DRAW SITE RBA; HHB 0.9 % (0.0-5.0); METHEMOGLOBIN 1.3 % (0.0-3.0)
[2017-08-12] MEDS: Enoxaparin 60 mg Syringe SC SCH (22:59)
[2017-08-13] MEDS: (Novolin R) Insulin Human Regular 100 units/ml vial SC SCH ×4 (00:20→17:57)
--- NOTE | 2017-08-13 03:58 | CP.PCM.PN ---
Subjective - Date & Time of Evaluation Date of Evaluation: 08/12/17 Time of Evaluation: 19:35 - Subjective Subjective: Patient seen and evaluated No acute events noted Agree with anticoagulation for A fib Lovenox for now. Switch to eliquis once cleared by surgeon Physical Exam - Constitutional Additional comments: - Head Exam Head Exam: NORMOCEPHALIC - Eye Exam Eye Exam: EOMI - ENT Exam Additional comments: ETT in place - Respiratory Exam Respiratory Exam: Clear to Auscultation Bilateral. absent: Respiratory Distress - Cardiovascular Exam Cardiovascular Exam: Tachycardia, Irregular Rhythm, +S1, +S2 - GI/Abdominal Exam GI & Abdominal Exam: Normal Bowel Sounds, Soft Additional comments: dressing clean, dry, intact - Exam Additional comments: borges catheter - Extremities Exam Additional comments: pressure offloading boots bilaterally, legs wrapped in xeroform and gauze - Neurological Exam Additional comments: sedated - Skin Skin Exam: Warm Objective - Vital Signs/Intake and Output Vital Signs (last 24 hours): Temp Pulse Resp BP Pulse Ox 99.1 F 122 H 21 111/46 L 96 08/12/17 20:00 08/13/17 03:00 08/13/17 03:00 08/13/17 02:59 08/13/17 03:00 Intake and Output: 08/12/17 08/13/17 18:59 06:59 Intake Total 1270 100 Output Total 2100 1165 Balance -830 -1065 - Medications Medications: Current Medications Acetaminophen (Tylenol 650 Mg Supp) 650 mg DC Q6 PRN PRN Reason: Temperature Enoxaparin Sodium (Lovenox) 60 mg SC Q12 [facility] Last Admin: 08/12/17 22:59 Dose: 60 mg Furosemide (Lasix) 20 mg IVP Q12 [facility] Last Admin: 08/12/17 23:01 Dose: 20 mg Piperacillin Sod/Tazobactam Sod (Zosyn 2.25 Gm Iv Premix) 2.25 gm in 50 mls @ 100 mls/hr IVPB Q6 [facility] Last Admin: 08/12/17 23:26 Dose: 100 mls/hr Fentanyl Citrate 2,500 mcg/ (Sodium Chloride) 250 mls @ 20.5 mls/hr IV .[id number] KARAN; 2 MCG/KG/HR PRN Reason: Protocol Last Admin: 08/12/17 23:00 Dose: Not Given Insulin Human Regular (Novolin R) 0 unit SC Q6 [facility] PRN Reason: Protocol Last Admin: 08/13/17 00:20 Dose: Not Given Metoclopramide HCl (Reglan) 10 mg IVP Q6H [facility] Last Admin: 08/12/17 23:00 Dose: 10 mg Metoprolol Tartrate (Lopressor) 5 mg IVP Q6 [facility] Last Admin: 08/12/17 23:55 Dose: 5 mg Pantoprazole Sodium (Protonix Inj) 40 mg IVP DAILY [facility] Last Admin: 08/12/17 09:35 Dose: 40 mg Potassium Phos/Sodium Phos (Neutra-Phos) 1 pkt PO BID [facility] Last Admin: 08/12/17 17:57 Dose: Not Given - Labs Labs: 08/12/17 06:39 08/12/17 06:39 PT 11.9 SECONDS (9.7-12.2) 08/10/17 05:54 INR 1.1 08/10/17 05:54 APTT 24 SECONDS (21-34) 08/10/17 05:54 Assessment and Plan - Assessment and Plan (Free Text) Assessment: 72 year old male with small bowel obstruction secondary to incarcerated umbilical s/p ex-lap who presents with new onset atrial fibrillation New onset Atrial fibrillation CHADS VASC: 1 for male and age 72, will follow up A1c, patient may need anticoagulation in future- recommend continuing DVT prophylactic dose heparin BP low-end normal with elevated heart rate which may be related to volume status-agree with continuing IV fluids will avoid beta blockers right now due to low BP If blood pressure drops, recommend neosynephrine for pressure support will continue to monitor echo 03/2017: LV function normal, LVEF in normal range, LA pressure mildly elevated
[2017-08-13] MEDS: Piperacill/Tazo 2.25gm in Dex 2.25 GM/50 ML BAG IVPB SCH ×3 (06:25→17:19)
[2017-08-13] MEDS: Metoprolol 1 mg/ml Inj IVP SCH ×4 (06:41→23:50)
[2017-08-13 06:45] LABS: BASO % 0.1 % (0.0-2.0); HEMATOCRIT 32.8 % (35.0-51.0); LYMPH # 0.6 K/uL (1.0-4.3); LYMPH % 4.9 % (20.0-40.0); MEAN CELL VOLUME 93.7 fL (80.0-94.0); MEAN CORPUSCULAR HEMOGLOBIN 30.5 pg (27.0-31.0); MEAN CORPUSCULAR HGB CONC 32.6 g/dL (33.0-37.0); MEAN PLATELET VOLUME 9.1 fL (7.2-11.7); MONO # 0.8 K/uL (0.0-0.8); MONO % 6.5 % (0.0-10.0); PLATELET COUNT 186 K/uL (130-400); RED CELL DISTRIBUTION WIDTH 13.9 % (11.5-14.5); WHITE BLOOD COUNT 12.4 K/uL (4.8-10.8)
[2017-08-13 06:50] LABS: CHLORIDE 105 mmol/L (98-107)
[2017-08-13 06:51] LABS: POTASSIUM 3.1 mmol/L (3.6-5.2); SODIUM 139 mmol/L (132-148)
[2017-08-13 06:53] LABS: ALB/GLOB RATIO 1.4 (1.0-2.1); ALKALINE PHOSPHATASE 57 U/L (38-126); AST/SGOT 14 U/L (17-59); BILIRUBIN,TOTAL 3.2 mg/dL (0.2-1.3); BLOOD UREA NITROGEN 34 mg/dL (9-20); CARBON DIOXIDE 20 mmol/L (22-30); GFR AFRICAN-AMERICAN > 60; TOTAL PROTEIN 5.7 g/dL (6.3-8.3)
[2017-08-13 06:54] LABS: ALT/SGPT 31 U/L (21-72); CALCIUM 7.9 mg/dl (8.6-10.4); GLUCOSE,RANDOM 117 mg/dL (75-110); PHOSPHOROUS 2.9 mg/dL (2.5-4.5)
[2017-08-13 08:34] LABS: NEUTROPHIL 93 % (50-75); TOTAL CELLS COUNTED 100
--- NOTE | 2017-08-13 08:41 | CP.PCM.PN ---
Subjective - Date & Time of Evaluation Date of Evaluation: 08/13/17 Time of Evaluation: 08:15 - Subjective Subjective: General Surgery Dr. Ceja Pt S&E @bedside. Pt self-extubated last evening and pulled NGT out. Pt refused BiPAP; currently on NC and tolerating well. Pt has no complaints this AM. Pain worsened by mvt but otherwise well controlled w/ medication. denies F/C, N/V. (- )BM/Flatus. Objective - Vital Signs/Intake and Output Vital Signs (last 24 hours): Temp Pulse Resp BP Pulse Ox 98.4 F 112 H 18 114/66 98 08/13/17 08:00 08/13/17 08:00 08/13/17 08:00 08/13/17 08:00 08/13/17 08:00 Intake and Output: 08/13/17 08/13/17 06:59 18:59 Intake Total 150 0 Output Total 1595 80 Balance -1445 -80 Selected Entries 08/11/17 08/12/17 08/12/17 18:00 08:00 09:00 Gastric Amount 50 50 50 [Nares] 08/12/17 10:00 Gastric Amount 25 [Nares] - Medications Medications: Current Medications Acetaminophen (Tylenol 650 Mg Supp) 650 mg FL Q6 PRN PRN Reason: Temperature Enoxaparin Sodium (Lovenox) 60 mg SC Q12 [facility] Last Admin: 08/12/17 22:59 Dose: 60 mg Furosemide (Lasix) 20 mg IVP Q12 [facility] Last Admin: 08/12/17 23:01 Dose: 20 mg Piperacillin Sod/Tazobactam Sod (Zosyn 2.25 Gm Iv Premix) 2.25 gm in 50 mls @ 100 mls/hr IVPB Q6 [facility] Last Admin: 08/13/17 06:25 Dose: 100 mls/hr Potassium Chloride (Potassium Chloride 10 Meq/100 Ml) 10 meq in 100 mls @ 100 mls/hr IVPB Q2 [facility] Stop: 08/13/17 14:59 Insulin Human Regular (Novolin R) 0 unit SC Q6 [facility] PRN Reason: Protocol Last Admin: 08/13/17 06:48 Dose: Not Given Metoclopramide HCl (Reglan) 10 mg IVP Q6H [facility] Last Admin: 08/13/17 06:24 Dose: 10 mg Metoprolol Tartrate (Lopressor) 5 mg IVP Q6 [facility] Last Admin: 08/13/17 06:41 Dose: 5 mg Pantoprazole Sodium (Protonix Inj) 40 mg IVP DAILY [facility] Last Admin: 08/12/17 09:35 Dose: 40 mg - Labs Labs: 08/13/17 06:34 08/13/17 06:35 Microbiology 08/10/17 09:00 Leg - Left Gram Stain - Final 08/10/17 09:00 Leg - Left Wound Culture - Preliminary Proteus Penneri Beta Hemolytic Strep Group B Gram Negative Rfaa Gram Negative Rafa#2 - Constitutional Appears: Non-toxic, No Acute Distress - Head Exam Head Exam: NORMAL INSPECTION - Eye Exam Eye Exam: Normal appearance - ENT Exam ENT Exam: Mucous Membranes Moist - Respiratory Exam Respiratory Exam: NORMAL BREATHING PATTERN. absent: Accessory Muscle Use, Respiratory Distress - Cardiovascular Exam Cardiovascular Exam: Tachycardia, Irregular Rhythm - GI/Abdominal Exam GI & Abdominal Exam: Distended (minimal), Soft, Tenderness (appropriate TTP R abd). absent: Firm, Guarding, Rigid, Rebound Additional comments: dressing c/d/i - Exam Additional comments: borges in place draining clear, yellow urine - Neurological Exam Neurological Exam: Alert, Awake, Oriented x3 - Psychiatric Exam Psychiatric exam: Normal Affect, Normal Mood - Skin Skin Exam: Dry, Normal Color, Warm Assessment and Plan - Assessment and Plan (Free Text) Assessment: 72 y/o M POD#3 s/p ex-lap w/ ventral hernia repair and extensive ROMAIN - cont monitor bowel fxn - monitor UOP and vitals - advance to FLD - cont pain management - encourage OOB to chair/Amb/IS use - DVT/GI PPx Pt discussed w/ Dr. Marcial Hopkins DO PGY2
[2017-08-13] MEDS: Enoxaparin 60 mg Syringe SC SCH ×2 (09:52→21:25)
--- NOTE | 2017-08-13 10:50 | RAD ---
HISTORY: intubated COMPARISON: Chest x-ray performed 08/12/17 TECHNIQUE: Chest, one view. FINDINGS: Examination limited by habitus, hypoinflation, and patient obliquity. External wires and leads obscure evaluation of the underlying parenchyma. LUNGS: Moderate pulmonary venous congestion. Bibasilar atelectasis or infiltrates, right greater than left. Probable trace effusions. No definite pneumothorax. Please note that chest x-ray has limited sensitivity for the detection of pulmonary masses. CARDIOVASCULAR: Cardiomegaly. OSSEOUS STRUCTURES: Degenerative changes of the spine. VISUALIZED UPPER ABDOMEN: Unremarkable. OTHER FINDINGS: None. IMPRESSION: Moderate pulmonary venous congestion. Bibasilar atelectasis or infiltrates, right greater than left. Probable trace effusions. Cardiomegaly.
--- NOTE | 2017-08-13 10:53 | CP.PCM.PN ---
Subjective - Date & Time of Evaluation Date of Evaluation: 08/13/17 Time of Evaluation: 10:50 - Subjective Subjective: self extubated; not dyspneic now good response to IV lasix- excellent UO K low; renal function stable On IV ABs for LE wounds/cellulitis Objective - Vital Signs/Intake and Output Vital Signs (last 24 hours): Temp Pulse Resp BP Pulse Ox 98.4 F 124 H 21 119/54 L 94 L 08/13/17 08:00 08/13/17 10:00 08/13/17 10:00 08/13/17 09:52 08/13/17 10:00 Intake and Output: 08/13/17 08/13/17 06:59 18:59 Intake Total 150 100 Output Total 1595 190 Balance -1445 -90 - Medications Medications: Current Medications Acetaminophen (Tylenol 650 Mg Supp) 650 mg [place] Q6 PRN PRN Reason: Temperature Enoxaparin Sodium (Lovenox) 60 mg SC Q12 [facility] Last Admin: 08/13/17 09:52 Dose: 60 mg Furosemide (Lasix) 20 mg IVP Q12 [facility]ARAN Last Admin: 08/13/17 09:52 Dose: 20 mg Piperacillin Sod/Tazobactam Sod (Zosyn 2.25 Gm Iv Premix) 2.25 gm in 50 mls @ 100 mls/hr IVPB Q6 KARAN Last Admin: 08/13/17 06:25 Dose: 100 mls/hr Potassium Chloride (Potassium Chloride 10 Meq/100 Ml) 10 meq in 100 mls @ 100 mls/hr IVPB Q2 KARAN Stop: 08/13/17 14:59 Last Admin: 08/13/17 09:53 Dose: 100 mls/hr Insulin Human Regular (Novolin R) 0 unit SC Q6 KARAN PRN Reason: Protocol Last Admin: 08/13/17 06:48 Dose: Not Given Metoclopramide HCl (Reglan) 10 mg IVP Q6H [facility] Last Admin: 08/13/17 10:20 Dose: 10 mg Metoprolol Tartrate (Lopressor) 5 mg IVP Q6 KARAN Last Admin: 08/13/17 06:41 Dose: 5 mg Pantoprazole Sodium (Protonix Inj) 40 mg IVP DAILY [facility] Last Admin: 08/13/17 09:52 Dose: 40 mg - Labs Labs: 08/13/17 06:34 08/13/17 06:35 PT 11.9 SECONDS (9.7-12.2) 08/10/17 05:54 INR 1.1 08/10/17 05:54 APTT 24 SECONDS (21-34) 08/10/17 05:54 - Constitutional Appears: No Acute Distress, Chronically Ill - Head Exam Head Exam: ATRAUMATIC, NORMAL INSPECTION - Eye Exam Eye Exam: EOMI, Normal appearance - Neck Exam Neck Exam: Normal Inspection. absent: Tenderness - Respiratory Exam Respiratory Exam: Clear to Ausculation Bilateral, NORMAL BREATHING PATTERN - Cardiovascular Exam Cardiovascular Exam: REGULAR RHYTHM, +S1 - GI/Abdominal Exam GI & Abdominal Exam: Soft. absent: Tenderness - Extremities Exam Extremities Exam: Pedal Edema, Tenderness - Neurological Exam Neurological Exam: Alert, CN II-XII Intact - Skin Skin Exam: Dry, Warm Assessment and Plan (1) Chronic kidney disease, stage III (moderate) Status: Acute (2) Hypertensive chronic kidney disease with stage 1 through stage 4 chronic kidney disease, or unspecified chronic kidney disease Status: Acute (3) Atrial fibrillation, new onset Status: Acute (4) Hyponatremia with excess extracellular fluid volume Status: Acute (5) Cellulitis Status: Acute (6) SBO (small bowel obstruction) Status: Acute (7) Infected skin ulcer limited to breakdown of skin Status: Acute (8) Metabolic acidemia Status: Acute - Assessment and Plan (Free Text) Plan: Replete K IV lasix for now- switch to po soon
--- NOTE | 2017-08-13 20:04 | CP.CCUPN ---
CCU Subjective - Physician Review Events Since Last Encounter (Free Text): 08/13/17 20:02 patient self extubated yesterday. After extubation he is doing well, he is able to sit up, awake and responding. Episodes of tachycardia Atrial fibrillation noted BP is on the low side Abdominal pain very mild Comfortable otherwise Critical Care Time Spent (in minutes): 45 CCU Objective - Vital Signs / Intake & Output Vital Signs (Last 4 hours): Vital Signs Pulse Resp BP Pulse Ox 08/13/17 19:40 130 H 24 122/77 94 L 08/13/17 19:00 131 H 22 95 08/13/17 18:40 123 H 23 144/78 93 L 08/13/17 18:00 125 H 23 95 08/13/17 17:41 119 H 23 165/66 H 93 L 08/13/17 17:00 123 H 22 96 08/13/17 16:39 123 H 23 146/74 100 Intake and Output (Last 8hrs): Intake & Output 08/13/17 08/13/17 08/13/17 06:59 14:59 22:59 Intake Total 100 800 150 Output Total 1290 960 720 Balance -1190 -160 -570 Weight 226 lb 11.2 oz Intake: Intake, IV Amount 100 350 50 Left Hand 0 Left Proximal Port Hand 100 0 Left Wrist 0 Right Antecubital 0 Right Wrist 350 50 Oral 450 100 Tube Feeding 0 Output: Urine 1290 960 470 Urethral (Wall) 1290 960 470 Emesis 250 Other: # Bowel Movements 0 1 0 - Physical Exam Narrative Physical Exam (Free Text): 08/13/17 20:03 Vital signs reviewed No neck vein distention noted Chest good air entry bilaterally, no wheezing or rales noted CVS regular heart sound, no murmur noted postoperative abdomen Extremities no pedal edema CATH LAB TECH alert awake oriented -3, no functional neurological deficit Head: Positive for: Atraumatic, Normocephalic Pupils: Positive for: PERRL Conjunctiva: Positive for: Normal Mouth: Positive for: Moist Mucous Membranes Respiratory/Chest: Positive for: Clear to Auscultation, Good Air Exchange Cardiovascular: Positive for: Normal S1, S2, Tachycardic Abdomen: Positive for: Other (c/d/i dressing over incision ) Lower Extremity: Positive for: Swelling, Erythema Skin: Positive for: Warm, Erythematous, Other (b/l cellulitic changes ) Psychiatric: Positive for: Alert - Medications Active Medications: Active Medications Generic Name Dose Route Start Last Admin Trade Name Freq PRN Reason Stop Dose Admin Acetaminophen 650 mg 08/11/17 01:17 Tylenol 650 Mg Supp [place] Q6 PRN Temperature Enoxaparin Sodium 60 mg 08/12/17 22:00 08/13/17 09:52 Lovenox SC 60 mg Q12 KARAN Administration Furosemide 20 mg 08/12/17 10:15 08/13/17 09:52 Lasix IVP 20 mg Q12 KARAN Administration Piperacillin Sod/Tazobactam Sod 2.25 gm in 50 mls @ 100 mls/hr 08/10/17 10:30 08/13/17 17:19 Zosyn 2.25 Gm Iv Premix IVPB 100 mls/hr Q6 KARAN Administration Insulin Human Regular 0 unit 08/12/17 07:15 08/13/17 17:57 Novolin R SC 2 unit Q6 KARAN Administration Protocol Metoclopramide HCl 10 mg 08/11/17 11:15 08/13/17 17:19 Reglan IVP 10 mg Q6H KARAN Administration Metoprolol Tartrate 5 mg 08/12/17 19:01 08/13/17 17:19 Lopressor IVP 5 mg Q6 KARAN Administration Pantoprazole Sodium 40 mg 08/10/17 10:00 08/13/17 09:52 Protonix Inj IVP 40 mg DAILY KARAN Administration - Patient Studies Lab Studies: Microbiology Studies 08/10/17 08:00 Gram Stain - Final Trachasp Sputum Culture - Final No growth. 08/10/17 08:00 Urine Culture - Final Urine,Catheterized Yeast Species 08/10/17 09:00 Gram Stain - Final Leg - Left Wound Culture - Preliminary Proteus Penneri Beta Hemolytic Strep Group B Gram Negative Rafa Raoultella Ornithinolytica 08/10/17 06:15 Blood Culture - Preliminary Blood NO GROWTH AFTER 3 DAYS 08/10/17 05:45 Blood Culture - Preliminary Blood NO GROWTH AFTER 3 DAYS Lab Studies 08/13/17 08/13/17 08/13/17 Range/Units 17:47 11:27 06:46 WBC (4.8-10.8) K/uL RBC (4.40-5.90) Mil/uL Hgb (12.0-18.0) g/dL Hct (35.0-51.0) % MCV (80.0-94.0) fL MCH (27.0-31.0) pg MCHC (33.0-37.0) g/dL RDW (11.5-14.5) % Plt Count (130-400) K/uL MPV (7.2-11.7) fL Neut % (Auto) (50.0-75.0) % Lymph % (Auto) (20.0-40.0) % [place] % (Auto) (0.0-10.0) % Eos % (Auto) (0.0-4.0) % Baso % (Auto) (0.0-2.0) % Neut # (1.8-7.0) K/uL Lymph # (1.0-4.3) K/uL [place] # (0.0-0.8) K/uL Eos # (0.0-0.7) K/uL Baso # (0.0-0.2) K/uL Neutrophils % (Manual) (50-75) % Lymphocytes % (Manual) (20-40) % Monocytes % (Manual) (0-10) % Platelet Estimate (NORMAL) RBC Morphology Sodium (132-148) mmol/L Potassium (3.6-5.2) mmol/L Chloride (98-107) mmol/L Carbon Dioxide (22-30) mmol/L Anion Gap (10-20) BUN (9-20) mg/dL Creatinine (0.8-1.5) mg/dL Est GFR ( Amer) Est GFR (Non-Af Amer) POC Glucose (mg/dL) 205 H 133 H 148 H (65-110) mg/dL Random Glucose (75-110) mg/dL Calcium (8.6-10.4) mg/dl Phosphorus (2.5-4.5) mg/dL Magnesium (1.6-2.3) mg/dL Total Bilirubin (0.2-1.3) mg/dL AST (17-59) U/L ALT (21-72) U/L Alkaline Phosphatase (38-126) U/L Total Protein (6.3-8.3) g/dL Albumin (3.5-5.0) g/dL Globulin (2.2-3.9) gm/dL Albumin/Globulin Ratio (1.0-2.1) 08/13/17 08/13/17 08/13/17 Range/Units 06:35 06:34 00:17 WBC 12.4 H (4.8-10.8) K/uL RBC 3.50 L (4.40-5.90) Mil/uL Hgb 10.7 L (12.0-18.0) g/dL Hct 32.8 L (35.0-51.0) % MCV 93.7 (80.0-94.0) fL MCH 30.5 (27.0-31.0) pg MCHC 32.6 L (33.0-37.0) g/dL RDW 13.9 (11.5-14.5) % Plt Count 186 (130-400) K/uL MPV 9.1 (7.2-11.7) fL Neut % (Auto) 88.5 H (50.0-75.0) % Lymph % (Auto) 4.9 L (20.0-40.0) % [place] % (Auto) 6.5 (0.0-10.0) % Eos % (Auto) 0.0 (0.0-4.0) % Baso % (Auto) 0.1 (0.0-2.0) % Neut # 11.0 H (1.8-7.0) K/uL Lymph # 0.6 L (1.0-4.3) K/uL [place] # 0.8 (0.0-0.8) K/uL Eos # 0.0 (0.0-0.7) K/uL Baso # 0.0 (0.0-0.2) K/uL Neutrophils % (Manual) 93 H (50-75) % Lymphocytes % (Manual) 3 L (20-40) % Monocytes % (Manual) 4 (0-10) % Platelet Estimate Normal (NORMAL) RBC Morphology Normal Sodium 139 (132-148) mmol/L Potassium 3.1 L (3.6-5.2) mmol/L Chloride 105 (98-107) mmol/L Carbon Dioxide 20 L (22-30) mmol/L Anion Gap 17 (10-20) BUN 34 H (9-20) mg/dL Creatinine 1.2 (0.8-1.5) mg/dL Est GFR ( Amer) > 60 Est GFR (Non-Af Amer) 59 POC Glucose (mg/dL) 105 (65-110) mg/dL Random Glucose 117 H (75-110) mg/dL Calcium 7.9 L (8.6-10.4) mg/dl Phosphorus 2.9 (2.5-4.5) mg/dL Magnesium 2.0 (1.6-2.3) mg/dL Total Bilirubin 3.2 H (0.2-1.3) mg/dL AST 14 L (17-59) U/L ALT 31 (21-72) U/L Alkaline Phosphatase 57 (38-126) U/L Total Protein 5.7 L (6.3-8.3) g/dL Albumin 3.3 L D (3.5-5.0) g/dL Globulin 2.4 (2.2-3.9) gm/dL Albumin/Globulin Ratio 1.4 (1.0-2.1) Laboratory Results - last 24 hr 08/13/17 08/13/17 08/13/17 00:17 06:34 06:35 WBC 12.4 H RBC 3.50 L Hgb 10.7 L Hct 32.8 L MCV 93.7 MCH 30.5 MCHC 32.6 L RDW 13.9 Plt Count 186 MPV 9.1 Neut % (Auto) 88.5 H Lymph % (Auto) 4.9 L [place] % (Auto) 6.5 Eos % (Auto) 0.0 Baso % (Auto) 0.1 Neut # 11.0 H Lymph # 0.6 L [place] # 0.8 Eos # 0.0 Baso # 0.0 Neutrophils % (Manual) 93 H Lymphocytes % (Manual) 3 L Monocytes % (Manual) 4 Platelet Estimate Normal RBC Morphology Normal Sodium 139 Potassium 3.1 L Chloride 105 Carbon Dioxide 20 L Anion Gap 17 BUN 34 H Creatinine 1.2 Est GFR ( Amer) > 60 Est GFR (Non-Af Amer) 59 POC Glucose (mg/dL) 105 Random Glucose 117 H Calcium 7.9 L Phosphorus 2.9 Magnesium 2.0 Total Bilirubin 3.2 H AST 14 L ALT 31 Alkaline Phosphatase 57 Total Protein 5.7 L Albumin 3.3 L D Globulin 2.4 Albumin/Globulin Ratio 1.4 08/13/17 08/13/17 08/13/17 06:46 11:27 17:47 WBC RBC Hgb Hct MCV MCH MCHC RDW Plt Count MPV Neut % (Auto) Lymph % (Auto) [place] % (Auto) Eos % (Auto) Baso % (Auto) Neut # Lymph # [place] # Eos # Baso # Neutrophils % (Manual) Lymphocytes % (Manual) Monocytes % (Manual) Platelet Estimate RBC Morphology Sodium Potassium Chloride Carbon Dioxide Anion Gap BUN Creatinine Est GFR ( Amer) Est GFR (Non-Af Amer) POC Glucose (mg/dL) 148 H 133 H 205 H Random Glucose Calcium Phosphorus Magnesium Total Bilirubin AST ALT Alkaline Phosphatase Total Protein Albumin Globulin Albumin/Globulin Ratio Fingerstick Blood Sugar Results: 205 Review of Systems - Review of Systems All systems: reviewed and no additional remarkable complaints except Critical Care Progress Note - Nutrition Nutrition: Nutrition Category Date Time Status Liquid Diet [DIET] Diets 08/13/17 Lunch Active Assessment/Plan (1) Septicemia Assessment and plan: patient with intestinal obstruction, respiratory failure, aspiration pneumonia, status post to surgery. Extubated. Atrial fibrillation stable On Lovenox Clinical stable Continue the current treatment Current Visit: Yes Status: Acute (2) Atrial fibrillation, new onset Current Visit: Yes Status: Acute (3) Hypertensive chronic kidney disease with stage 1 through stage 4 chronic kidney disease, or unspecified chronic kidney disease Current Visit: Yes Status: Acute
--- NOTE | 2017-08-13 23:19 | CP.PCM.PN ---
Subjective - Date & Time of Evaluation Date of Evaluation: 08/13/17 Time of Evaluation: 18:00 - Subjective Subjective: Patient seen and evaluated A Fib Comfortable Physical Exam - Constitutional Additional comments: - Head Exam Head Exam: NORMOCEPHALIC - Eye Exam Eye Exam: EOMI - ENT Exam Additional comments: ETT in place - Respiratory Exam Respiratory Exam: Clear to Auscultation Bilateral. absent: Respiratory Distress - Cardiovascular Exam Cardiovascular Exam: Tachycardia, Irregular Rhythm, +S1, +S2 - GI/Abdominal Exam GI & Abdominal Exam: Normal Bowel Sounds, Soft Additional comments: dressing clean, dry, intact - Exam Additional comments: borges catheter - Extremities Exam Additional comments: pressure offloading boots bilaterally, legs wrapped in xeroform and gauze - Neurological Exam Additional comments: sedated - Skin Skin Exam: Warm Objective - Vital Signs/Intake and Output Vital Signs (last 24 hours): Temp Pulse Resp BP Pulse Ox 99.0 F 130 H 24 131/80 94 L 08/13/17 16:00 08/13/17 19:40 08/13/17 19:40 08/13/17 21:25 08/13/17 19:40 Intake and Output: 08/13/17 08/14/17 18:59 05:59 Intake Total 950 0 Output Total 1370 310 Balance -420 -310 - Medications Medications: Current Medications Acetaminophen (Tylenol 650 Mg Supp) 650 mg [place] Q6 PRN PRN Reason: Temperature Enoxaparin Sodium (Lovenox) 60 mg SC Q12 [facility]AN Last Admin: 08/13/17 21:25 Dose: 60 mg Furosemide (Lasix) 20 mg IVP Q12 [facility]AN Last Admin: 08/13/17 21:25 Dose: 20 mg Piperacillin Sod/Tazobactam Sod (Zosyn 2.25 Gm Iv Premix) 2.25 gm in 50 mls @ 100 mls/hr IVPB Q6 [facility]AN Last Admin: 08/13/17 17:19 Dose: 100 mls/hr Insulin Human Regular (Novolin R) 0 unit SC Q6 KARAN PRN Reason: Protocol Last Admin: 08/13/17 17:57 Dose: 2 unit Metoclopramide HCl (Reglan) 10 mg IVP Q6H [facility]AN Last Admin: 08/13/17 17:19 Dose: 10 mg Metoprolol Tartrate (Lopressor) 5 mg IVP Q6 [facility]AN Last Admin: 08/13/17 17:19 Dose: 5 mg Pantoprazole Sodium (Protonix Inj) 40 mg IVP DAILY [facility] Last Admin: 08/13/17 09:52 Dose: 40 mg - Labs Labs: 08/13/17 06:34 08/13/17 06:35 PT 11.9 SECONDS (9.7-12.2) 08/10/17 05:54 INR 1.1 08/10/17 05:54 APTT 24 SECONDS (21-34) 08/10/17 05:54 Assessment and Plan - Assessment and Plan (Free Text) Assessment: (1) Chronic kidney disease, stage III (moderate) Status: Acute (2) Hypertensive chronic kidney disease with stage 1 through stage 4 chronic kidney disease, or unspecified chronic kidney disease Status: Acute (3) Atrial fibrillation, new onset Status: Acute (4) Hyponatremia with excess extracellular fluid volume Status: Acute (5) Cellulitis Status: Acute (6) SBO (small bowel obstruction) Status: Acute (7) Infected skin ulcer limited to breakdown of skin Status: Acute (8) Metabolic acidemia Status: Acute
[2017-08-14] MEDS: Piperacill/Tazo 2.25gm in Dex 2.25 GM/50 ML BAG IVPB SCH ×4 (00:30→17:39)
[2017-08-14] MEDS: (Novolin R) Insulin Human Regular 100 units/ml vial SC SCH ×4 (00:46→18:42)
[2017-08-14] MEDS: Metoprolol 1 mg/ml Inj IVP SCH ×3 (06:18→17:37)
[2017-08-14 07:00] LABS: BASO # 0.1 K/uL (0.0-0.2); BASO % 0.5 % (0.0-2.0); EOS % 0.2 % (0.0-4.0); HEMATOCRIT 36.1 % (35.0-51.0); LYMPH # 0.8 K/uL (1.0-4.3); LYMPH % 6.9 % (20.0-40.0); MEAN CELL VOLUME 92.5 fL (80.0-94.0); MEAN CORPUSCULAR HEMOGLOBIN 30.8 pg (27.0-31.0); MEAN CORPUSCULAR HGB CONC 33.3 g/dL (33.0-37.0); MEAN PLATELET VOLUME 9.2 fL (7.2-11.7); PLATELET COUNT 254 K/uL (130-400); RED CELL DISTRIBUTION WIDTH 13.8 % (11.5-14.5); WHITE BLOOD COUNT 11.6 K/uL (4.8-10.8)
[2017-08-14 07:09] LABS: CHLORIDE 103 mmol/L (98-107); POTASSIUM 2.7 mmol/L (3.6-5.2); SODIUM 138 mmol/L (132-148)
[2017-08-14 07:11] LABS: ALB/GLOB RATIO 0.8 (1.0-2.1); ALKALINE PHOSPHATASE 94 U/L (38-126); AST/SGOT 14 U/L (17-59); BILIRUBIN,TOTAL 1.9 mg/dL (0.2-1.3); CARBON DIOXIDE 23 mmol/L (22-30); GFR AFRICAN-AMERICAN > 60; TOTAL PROTEIN 7.3 g/dL (6.3-8.3)
[2017-08-14 07:12] LABS: ALT/SGPT 32 U/L (21-72); BLOOD UREA NITROGEN 36 mg/dL (9-20); CALCIUM 8.2 mg/dl (8.6-10.4); GLUCOSE,RANDOM 136 mg/dL (75-110); PHOSPHOROUS 2.7 mg/dL (2.5-4.5)
[2017-08-14 08:37] LABS: NEUTROPHIL 80 % (50-75); TOTAL CELLS COUNTED 100
--- NOTE | 2017-08-14 08:43 | CP.PCM.PN ---
Subjective - Date & Time of Evaluation Date of Evaluation: 08/14/17 Time of Evaluation: 08:41 - Subjective Subjective: Surgery: Dr. Ceja Pt seen and examined. Pt removed NGT yesterday, had multiple episodes of vomiting, NGT was placed again. Pt states that he is feeling better. No N/V since NGT placed. Pain is controlled. No F/C. No BM. Objective - Vital Signs/Intake and Output Vital Signs (last 24 hours): Temp Pulse Resp BP Pulse Ox 98.5 F 120 H 15 85/55 L 97 08/14/17 08:00 08/14/17 08:00 08/14/17 08:00 08/14/17 07:42 08/14/17 08:00 Intake and Output: 08/14/17 08/14/17 06:59 18:59 Intake Total 0 Output Total 75 Balance -75 - Medications Medications: Current Medications Acetaminophen (Tylenol 650 Mg Supp) 650 mg [place] Q6 PRN PRN Reason: Temperature Enoxaparin Sodium (Lovenox) 60 mg SC Q12 [facility]AN Last Admin: 08/13/17 21:25 Dose: 60 mg Furosemide (Lasix) 20 mg IVP Q12 [facility]AN Last Admin: 08/13/17 21:25 Dose: 20 mg Piperacillin Sod/Tazobactam Sod (Zosyn 2.25 Gm Iv Premix) 2.25 gm in 50 mls @ 100 mls/hr IVPB Q6 [facility]AN Last Admin: 08/14/17 06:15 Dose: 100 mls/hr Potassium Chloride/Dextrose/Sod Cl (Potassium Chl 20 Meq In D5-1/2ns) 1,000 mls @ 150 mls/hr IV .Q6H40M KARAN Potassium Chloride (Potassium Chloride 20 Meq/100 Ml) 20 meq in 100 mls @ 50 mls/hr IVPB Q2 KARAN Stop: 08/14/17 15:59 Insulin Human Regular (Novolin R) 0 unit SC Q6 KARAN PRN Reason: Protocol Last Admin: 08/14/17 06:20 Dose: Not Given Metoclopramide HCl (Reglan) 10 mg IVP Q6H [facility] Last Admin: 08/14/17 06:00 Dose: 10 mg Metoprolol Tartrate (Lopressor) 5 mg IVP Q6 [facility]ARAN Last Admin: 08/14/17 06:18 Dose: 5 mg Pantoprazole Sodium (Protonix Inj) 40 mg IVP DAILY [facility] Last Admin: 08/13/17 09:52 Dose: 40 mg - Labs Labs: 08/14/17 06:45 08/14/17 06:45 PT 11.9 SECONDS (9.7-12.2) 08/10/17 05:54 INR 1.1 08/10/17 05:54 APTT 24 SECONDS (21-34) 08/10/17 05:54 - Constitutional Appears: Non-toxic, No Acute Distress - Head Exam Head Exam: ATRAUMATIC, NORMOCEPHALIC - Eye Exam Eye Exam: EOMI - ENT Exam ENT Exam: Mucous Membranes Moist - Neck Exam Neck Exam: Full ROM - Respiratory Exam Respiratory Exam: NORMAL BREATHING PATTERN. absent: Accessory Muscle Use, Respiratory Distress - Cardiovascular Exam Cardiovascular Exam: Tachycardia - GI/Abdominal Exam GI & Abdominal Exam: Soft. absent: Distended, Firm, Guarding, Rigid, Tenderness , Rebound Additional comments: midline incision C/D/I w. katelin - Neurological Exam Neurological Exam: Alert, Awake, Oriented x3 - Skin Skin Exam: Dry, Warm Assessment and Plan - Assessment and Plan (Free Text) Assessment: 72M w. SBO s/p ex-lap w/ ventral hernia repair and extensive ROMAIN, POD#4 -Keep NGT in place, ice chips ok -monitor bowel fxn -Hypokalemia: KCl ordered and pt started on D5 0.45NS w. 20K -encourage IS use -GI/DVT prophylaxis -d/w attending Zemaitis PGY3
--- NOTE | 2017-08-14 09:03 | CP.CCUPN ---
CCU Subjective - Physician Review Events Since Last Encounter (Free Text): 08/14/17 09:02 The patient was vomiting last night, NG tube was placed, more than 1.5 L bilious fluid came out Abdominal distention still noted Patient is comfortable otherwise. Tachycardia noted. No chest pain Urinary output is better Minimal cough noted CCU Objective - Vital Signs / Intake & Output Vital Signs (Last 4 hours): Vital Signs Temp Pulse Resp BP Pulse Ox 08/14/17 08:00 98.5 F 120 H 15 97 08/14/17 07:42 114 H 16 85/55 L 95 08/14/17 07:00 121 H 16 98 08/14/17 06:40 130 H 17 129/71 08/14/17 06:00 125 H 20 95 08/14/17 05:40 117 H 13 101/57 L 95 Intake and Output (Last 8hrs): Intake & Output 08/13/17 08/14/17 08/14/17 23:59 06:59 14:59 Intake Total 0 Output Total 75 Balance -75 Intake: Intake, IV Amount 0 Right Wrist 0 Oral Output: Urine 75 Urethral (Wall) 75 Emesis Other: # Bowel Movements - Physical Exam Narrative Physical Exam (Free Text): 08/14/17 09:03 Vital signs reviewed No neck vein distention noted Chest good air entry bilaterally, no wheezing or rales noted CVS regular heart sound, no murmur noted Abdomen soft, nontender. Extremities no pedal edema [employer] alert awake oriented -3, no functional neurological deficit Head: Positive for: Atraumatic, Normocephalic Pupils: Positive for: PERRL Conjunctiva: Positive for: Normal Mouth: Positive for: Moist Mucous Membranes Respiratory/Chest: Positive for: Clear to Auscultation, Good Air Exchange Cardiovascular: Positive for: Normal S1, S2, Tachycardic Abdomen: Positive for: Other (c/d/i dressing over incision ) Lower Extremity: Positive for: Swelling, Erythema Skin: Positive for: Warm, Erythematous, Other (b/l cellulitic changes ) Psychiatric: Positive for: Alert - Medications Active Medications: Active Medications Generic Name Dose Route Start Last Admin Trade Name Freq PRN Reason Stop Dose Admin Acetaminophen 650 mg 08/11/17 01:17 Tylenol 650 Mg Supp MS Q6 PRN Temperature Enoxaparin Sodium 60 mg 08/12/17 22:00 08/13/17 21:25 Lovenox SC 60 mg Q12 KARAN Administration Piperacillin Sod/Tazobactam Sod 2.25 gm in 50 mls @ 100 mls/hr 08/10/17 10:30 08/14/17 06:15 Zosyn 2.25 Gm Iv Premix IVPB 100 mls/hr Q6 KARAN Administration Potassium Chloride/Dextrose/Sod Cl 1,000 mls @ 150 mls/hr 08/14/17 09:00 Potassium Chl 20 Meq In D5-1/2ns IV .Q6H40M KARAN Potassium Chloride 20 meq in 100 mls @ 50 mls/hr 08/14/17 10:00 Potassium Chloride 20 Meq/100 Ml IVPB 08/14/17 15:59 Q2 KARAN Insulin Human Regular 0 unit 08/12/17 07:15 08/14/17 06:20 Novolin R SC Not Given Q6 KARAN Protocol Metoclopramide HCl 10 mg 08/11/17 11:15 08/14/17 06:00 Reglan IVP 10 mg Q6H KARAN Administration Metoprolol Tartrate 5 mg 08/12/17 19:01 08/14/17 06:18 Lopressor IVP 5 mg Q6 KARAN Administration Pantoprazole Sodium 40 mg 08/10/17 10:00 08/13/17 09:52 Protonix Inj IVP 40 mg DAILY KARAN Administration - Patient Studies Lab Studies: Microbiology Studies 08/10/17 08:00 Gram Stain - Final Trachasp Sputum Culture - Final No growth. 08/10/17 08:00 Urine Culture - Final Urine,Catheterized Yeast Species 08/10/17 09:00 Gram Stain - Final Leg - Left Wound Culture - Preliminary Proteus Penneri Beta Hemolytic Strep Group B Gram Negative Rafa Raoultella Ornithinolytica 08/10/17 06:15 Blood Culture - Preliminary Blood NO GROWTH AFTER 3 DAYS 08/10/17 05:45 Blood Culture - Preliminary Blood NO GROWTH AFTER 3 DAYS Lab Studies 08/14/17 08/14/17 08/14/17 Range/Units 06:45 06:45 06:00 WBC 11.6 H (4.8-10.8) K/uL RBC 3.90 L (4.40-5.90) Mil/uL Hgb 12.0 (12.0-18.0) g/dL Hct 36.1 (35.0-51.0) % MCV 92.5 (80.0-94.0) fL MCH 30.8 (27.0-31.0) pg MCHC 33.3 (33.0-37.0) g/dL RDW 13.8 (11.5-14.5) % Plt Count 254 (130-400) K/uL MPV 9.2 (7.2-11.7) fL Neut % (Auto) 83.4 H (50.0-75.0) % Lymph % (Auto) 6.9 L (20.0-40.0) % [place] % (Auto) 9.0 (0.0-10.0) % Eos % (Auto) 0.2 (0.0-4.0) % Baso % (Auto) 0.5 (0.0-2.0) % Neut # 9.7 H (1.8-7.0) K/uL Lymph # 0.8 L (1.0-4.3) K/uL [place] # 1.0 H (0.0-0.8) K/uL Eos # 0.0 (0.0-0.7) K/uL Baso # 0.1 (0.0-0.2) K/uL Neutrophils % (Manual) 80 H (50-75) % Band Neutrophils % 1 (0-2) % Lymphocytes % (Manual) 8 L (20-40) % Monocytes % (Manual) 11 H (0-10) % Platelet Estimate Normal (NORMAL) Poikilocytosis (manual Slight Anisocytosis (manual) Slight Ovalocytes Slight Sodium 138 (132-148) mmol/L Potassium 2.7 L (3.6-5.2) mmol/L Chloride 103 (98-107) mmol/L Carbon Dioxide 23 (22-30) mmol/L Anion Gap 15 (10-20) BUN 36 H (9-20) mg/dL Creatinine 1.0 (0.8-1.5) mg/dL Est GFR ( Amer) > 60 Est GFR (Non-Af Amer) > 60 POC Glucose (mg/dL) 143 H (65-110) mg/dL Random Glucose 136 H (75-110) mg/dL Calcium 8.2 L (8.6-10.4) mg/dl Phosphorus 2.7 (2.5-4.5) mg/dL Magnesium 2.0 (1.6-2.3) mg/dL Total Bilirubin 1.9 H (0.2-1.3) mg/dL AST 14 L (17-59) U/L ALT 32 (21-72) U/L Alkaline Phosphatase 94 (38-126) U/L Total Protein 7.3 (6.3-8.3) g/dL Albumin 3.3 L (3.5-5.0) g/dL Globulin 3.9 (2.2-3.9) gm/dL Albumin/Globulin Ratio 0.8 L (1.0-2.1) 08/14/17 08/13/17 08/13/17 Range/Units 00:42 17:47 11:27 WBC (4.8-10.8) K/uL RBC (4.40-5.90) Mil/uL Hgb (12.0-18.0) g/dL Hct (35.0-51.0) % MCV (80.0-94.0) fL MCH (27.0-31.0) pg MCHC (33.0-37.0) g/dL RDW (11.5-14.5) % Plt Count (130-400) K/uL MPV (7.2-11.7) fL Neut % (Auto) (50.0-75.0) % Lymph % (Auto) (20.0-40.0) % [place] % (Auto) (0.0-10.0) % Eos % (Auto) (0.0-4.0) % Baso % (Auto) (0.0-2.0) % Neut # (1.8-7.0) K/uL Lymph # (1.0-4.3) K/uL [place] # (0.0-0.8) K/uL Eos # (0.0-0.7) K/uL Baso # (0.0-0.2) K/uL Neutrophils % (Manual) (50-75) % Band Neutrophils % (0-2) % Lymphocytes % (Manual) (20-40) % Monocytes % (Manual) (0-10) % Platelet Estimate (NORMAL) Poikilocytosis (manual Anisocytosis (manual) Ovalocytes Sodium (132-148) mmol/L Potassium (3.6-5.2) mmol/L Chloride (98-107) mmol/L Carbon Dioxide (22-30) mmol/L Anion Gap (10-20) BUN (9-20) mg/dL Creatinine (0.8-1.5) mg/dL Est GFR ( Amer) Est GFR (Non-Af Amer) POC Glucose (mg/dL) 190 H 205 H 133 H (65-110) mg/dL Random Glucose (75-110) mg/dL Calcium (8.6-10.4) mg/dl Phosphorus (2.5-4.5) mg/dL Magnesium (1.6-2.3) mg/dL Total Bilirubin (0.2-1.3) mg/dL AST (17-59) U/L ALT (21-72) U/L Alkaline Phosphatase (38-126) U/L Total Protein (6.3-8.3) g/dL Albumin (3.5-5.0) g/dL Globulin (2.2-3.9) gm/dL Albumin/Globulin Ratio (1.0-2.1) Laboratory Results - last 24 hr 08/13/17 08/13/17 08/14/17 11:27 17:47 00:42 WBC RBC Hgb Hct MCV MCH MCHC RDW Plt Count MPV Neut % (Auto) Lymph % (Auto) [place] % (Auto) Eos % (Auto) Baso % (Auto) Neut # Lymph # [place] # Eos # Baso # Neutrophils % (Manual) Band Neutrophils % Lymphocytes % (Manual) Monocytes % (Manual) Platelet Estimate Poikilocytosis (manual Anisocytosis (manual) Ovalocytes Sodium Potassium Chloride Carbon Dioxide Anion Gap BUN Creatinine Est GFR ( Amer) Est GFR (Non-Af Amer) POC Glucose (mg/dL) 133 H 205 H 190 H Random Glucose Calcium Phosphorus Magnesium Total Bilirubin AST ALT Alkaline Phosphatase Total Protein Albumin Globulin Albumin/Globulin Ratio 08/14/17 08/14/17 08/14/17 06:00 06:45 06:45 WBC 11.6 H RBC 3.90 L Hgb 12.0 Hct 36.1 MCV 92.5 MCH 30.8 MCHC 33.3 RDW 13.8 Plt Count 254 MPV 9.2 Neut % (Auto) 83.4 H Lymph % (Auto) 6.9 L [place] % (Auto) 9.0 Eos % (Auto) 0.2 Baso % (Auto) 0.5 Neut # 9.7 H Lymph # 0.8 L [place] # 1.0 H Eos # 0.0 Baso # 0.1 Neutrophils % (Manual) 80 H Band Neutrophils % 1 Lymphocytes % (Manual) 8 L Monocytes % (Manual) 11 H Platelet Estimate Normal Poikilocytosis (manual Slight Anisocytosis (manual) Slight Ovalocytes Slight Sodium 138 Potassium 2.7 L Chloride 103 Carbon Dioxide 23 Anion Gap 15 BUN 36 H Creatinine 1.0 Est GFR ( Amer) > 60 Est GFR (Non-Af Amer) > 60 POC Glucose (mg/dL) 143 H Random Glucose 136 H Calcium 8.2 L Phosphorus 2.7 Magnesium 2.0 Total Bilirubin 1.9 H AST 14 L ALT 32 Alkaline Phosphatase 94 Total Protein 7.3 Albumin 3.3 L Globulin 3.9 Albumin/Globulin Ratio 0.8 L Fingerstick Blood Sugar Results: 143 Review of Systems - Review of Systems All systems: reviewed and no additional remarkable complaints except Critical Care Progress Note - Nutrition Nutrition: Nutrition Category Date Time Status NPO Diet [DIET] Diets 08/14/17 Breakfast Active Assessment/Plan (1) Septicemia Assessment and plan: patient with intestinal obstruction, respiratory failure, aspiration pneumonia, status post to surgery. Extubated. Atrial fibrillation stable On Lovenox Clinical stable Continue the current treatment possibly ileus, will continue the NG tube suction Keep nothing by mouth Abdominal x-ray IV fluid Supplementation of potassium Current Visit: Yes Status: Acute (2) Atrial fibrillation, new onset Current Visit: Yes Status: Acute (3) Hypertensive chronic kidney disease with stage 1 through stage 4 chronic kidney disease, or unspecified chronic kidney disease Current Visit: Yes Status: Acute
[2017-08-14 09:35] LABS: CHLORIDE URINE 69 mmol/L (32-290)
[2017-08-14] MEDS: Potassium Ch 20mEq in D5-1/2NS 1,000 ML IV SCH ×2 (11:04→17:32)
[2017-08-14] MEDS: Enoxaparin 60 mg Syringe SC SCH ×2 (11:05→21:09)
--- NOTE | 2017-08-14 14:51 | RAD ---
HISTORY: ileus COMPARISON: Abdominal x-ray performed 10/09/15 FINDINGS: BOWEL: Markedly dilated air-filled small bowel may reflect ileus however obstruction cannot be excluded. Nasogastric tube noted. Surgical clips and katelin evident. No definite free air on this limited portable view. BONES: No acute osseous abnormality is detected. OTHER FINDINGS: None. IMPRESSION: Markedly dilated air-filled small bowel may reflect ileus however small bowel obstruction cannot be excluded. Correlate clinically and follow-up as indicated. Nasogastric tube. Surgical clips and katelin evident.
--- NOTE | 2017-08-14 19:21 | CP.PCM.PN ---
Subjective - Date & Time of Evaluation Date of Evaluation: 08/14/17 Time of Evaluation: 16:40 - Subjective Subjective: Patient seen and evaluated Denies chest pain and dyspnea A fib with increased HR Willl increase dose of b blockers Physical Exam - Constitutional Additional comments: - Head Exam Head Exam: NORMOCEPHALIC - Eye Exam Eye Exam: EOMI - ENT Exam Additional comments: ETT in place - Respiratory Exam Respiratory Exam: Clear to Auscultation Bilateral. absent: Respiratory Distress - Cardiovascular Exam Cardiovascular Exam: Tachycardia, Irregular Rhythm, +S1, +S2 - GI/Abdominal Exam GI & Abdominal Exam: Normal Bowel Sounds, Soft Additional comments: dressing clean, dry, intact - Exam Additional comments: borges catheter - Extremities Exam Additional comments: pressure offloading boots bilaterally, legs wrapped in xeroform and gauze - Neurological Exam Additional comments: sedated - Skin Skin Exam: Warm Objective - Vital Signs/Intake and Output Vital Signs (last 24 hours): Temp Pulse Resp BP Pulse Ox 98.6 F 119 H 20 90/38 L 95 08/14/17 16:00 08/14/17 18:41 08/14/17 18:41 08/14/17 18:41 08/14/17 16:00 Intake and Output: 08/14/17 08/15/17 18:59 06:59 Intake Total 1500 Output Total 1665 Balance -165 - Medications Medications: Current Medications Acetaminophen (Tylenol 650 Mg Supp) 650 mg UT Q6 PRN PRN Reason: Temperature Enoxaparin Sodium (Lovenox) 60 mg SC Q12 [facility] Last Admin: 08/14/17 11:05 Dose: 60 mg Piperacillin Sod/Tazobactam Sod (Zosyn 2.25 Gm Iv Premix) 2.25 gm in 50 mls @ 100 mls/hr IVPB Q6 [facility] Last Admin: 08/14/17 17:39 Dose: 100 mls/hr Potassium Chloride/Dextrose/Sod Cl (Potassium Chl 20 Meq In D5-1/2ns) 1,000 mls @ 150 mls/hr IV .Q6H40M [facility] Last Admin: 08/14/17 17:32 Dose: Not Given Insulin Human Regular (Novolin R) 0 unit SC Q6 KARAN PRN Reason: Protocol Last Admin: 08/14/17 18:42 Dose: Not Given Metoclopramide HCl (Reglan) 10 mg IVP Q6H [facility] Last Admin: 08/14/17 17:37 Dose: 10 mg Metoprolol Tartrate (Lopressor) 5 mg IVP Q6 [facility] Last Admin: 08/14/17 17:37 Dose: 5 mg Pantoprazole Sodium (Protonix Inj) 40 mg IVP DAILY [facility] Last Admin: 08/14/17 10:00 Dose: 40 mg - Labs Labs: 08/14/17 06:45 08/14/17 06:45 PT 11.9 SECONDS (9.7-12.2) 08/10/17 05:54 INR 1.1 08/10/17 05:54 APTT 24 SECONDS (21-34) 08/10/17 05:54 Assessment and Plan - Assessment and Plan (Free Text) Assessment: (1) Chronic kidney disease, stage III (moderate) Status: Acute (2) Hypertensive chronic kidney disease with stage 1 through stage 4 chronic kidney disease, or unspecified chronic kidney disease Status: Acute (3) Atrial fibrillation, new onset Status: Acute (4) Hyponatremia with excess extracellular fluid volume Status: Acute (5) Cellulitis Status: Acute (6) SBO (small bowel obstruction) Status: Acute (7) Infected skin ulcer limited to breakdown of skin Status: Acute (8) Metabolic acidemia Status: Acute
[2017-08-15] MEDS: Piperacill/Tazo 2.25gm in Dex 2.25 GM/50 ML BAG IVPB SCH ×4 (00:01→18:28)
[2017-08-15] MEDS: Metoprolol 1 mg/ml Inj IVP SCH ×4 (00:01→21:37)
[2017-08-15] MEDS: (Novolin R) Insulin Human Regular 100 units/ml vial SC SCH ×5 (00:04→22:50)
[2017-08-15] MEDS: Potassium Ch 20mEq in D5-1/2NS 1,000 ML IV SCH ×4 (06:25→15:49)
[2017-08-15 06:26] LABS: BASO % 0.4 % (0.0-2.0); EOS # 0.2 K/uL (0.0-0.7); HEMATOCRIT 33.7 % (35.0-51.0); LYMPH # 1.1 K/uL (1.0-4.3); LYMPH % 9.9 % (20.0-40.0); MEAN CELL VOLUME 92.3 fL (80.0-94.0); MEAN CORPUSCULAR HEMOGLOBIN 31.5 pg (27.0-31.0); MEAN CORPUSCULAR HGB CONC 34.2 g/dL (33.0-37.0); MEAN PLATELET VOLUME 8.6 fL (7.2-11.7); MONO # 0.9 K/uL (0.0-0.8); MONO % 8.6 % (0.0-10.0); PLATELET COUNT 240 K/uL (130-400); RED CELL DISTRIBUTION WIDTH 13.7 % (11.5-14.5); WHITE BLOOD COUNT 10.7 K/uL (4.8-10.8)
[2017-08-15 06:30] LABS: CHLORIDE 106 mmol/L (98-107); POTASSIUM 3.3 mmol/L (3.6-5.2); SODIUM 138 mmol/L (132-148)
[2017-08-15 06:32] LABS: AST/SGOT 25 U/L (17-59); BILIRUBIN,TOTAL 1.5 mg/dL (0.2-1.3); CARBON DIOXIDE 27 mmol/L (22-30); GFR AFRICAN-AMERICAN > 60
[2017-08-15 06:33] LABS: ALB/GLOB RATIO 0.9 (1.0-2.1); ALKALINE PHOSPHATASE 81 U/L (38-126); ALT/SGPT 42 U/L (21-72); BLOOD UREA NITROGEN 28 mg/dL (9-20); CALCIUM 7.5 mg/dl (8.6-10.4); GLUCOSE,RANDOM 164 mg/dL (75-110); PHOSPHOROUS 1.5 mg/dL (2.5-4.5)
[2017-08-15 06:34] LABS: MAGNESIUM 1.9 mg/dL (1.6-2.3)
[2017-08-15] MEDS ORDERED: Potassium Phosphate 15 MMOLE in Dextrose 5% In Water 250 ML IVPB ONE (07:00)
[2017-08-15 08:15] LABS: EOSINOPHIL 3 % (0-4); NEUTROPHIL 81 % (50-75); TOTAL CELLS COUNTED 100
--- NOTE | 2017-08-15 08:28 | CP.PCM.PN ---
Subjective - Date & Time of Evaluation Date of Evaluation: 08/15/17 Time of Evaluation: 07:30 - Subjective Subjective: Surgery Note for Dr. Ceja Patient seen and examined at bedside. No acute event overnight. Pain is controlled. Patient still with no bowel movement. Will clamp NG tube and check residuals. 200 cc/12 hrs of output from NG tube. Objective - Vital Signs/Intake and Output Vital Signs (last 24 hours): Temp Pulse Resp BP Pulse Ox 98.4 F 112 H 18 117/66 94 L 08/15/17 04:00 08/15/17 06:40 08/15/17 06:40 08/15/17 06:40 08/15/17 06:40 Intake and Output: 08/15/17 08/15/17 06:59 18:59 Intake Total 1800 192 Output Total 790 125 Balance 1010 67 - Medications Medications: Current Medications Acetaminophen (Tylenol 650 Mg Supp) 650 mg [place] Q6 PRN PRN Reason: Temperature Enoxaparin Sodium (Lovenox) 60 mg SC Q12 [facility] Last Admin: 08/14/17 21:09 Dose: 60 mg Piperacillin Sod/Tazobactam Sod (Zosyn 2.25 Gm Iv Premix) 2.25 gm in 50 mls @ 100 mls/hr IVPB Q6 [facility] Last Admin: 08/15/17 06:26 Dose: 100 mls/hr Potassium Chloride/Dextrose/Sod Cl (Potassium Chl 20 Meq In D5-1/2ns) 1,000 mls @ 150 mls/hr IV .Q6H40M [facility] Last Admin: 08/15/17 06:25 Dose: 150 mls/hr Potassium Phosphate 15 mmole/ (Dextrose) 255 mls @ 42.5 mls/hr IVPB ONCE ONE Stop: 08/15/17 12:59 Last Admin: 08/15/17 08:06 Dose: 42.5 mls/hr Magnesium Sulfate/Dextrose (Magnesium Sulfate 1 Gm/100 Ml D5w) 1 gm in 100 mls @ 200 mls/hr IVPB ONCE ONE Stop: 08/15/17 08:55 Insulin Human Regular (Novolin R) 0 unit SC Q6 KARAN PRN Reason: Protocol Last Admin: 08/15/17 06:52 Dose: Not Given Metoclopramide HCl (Reglan) 10 mg IVP Q6H [facility] Last Admin: 08/15/17 06:16 Dose: 10 mg Metoprolol Tartrate (Lopressor) 5 mg IVP Q6 [facility] Last Admin: 08/15/17 06:16 Dose: 5 mg Pantoprazole Sodium (Protonix Inj) 40 mg IVP DAILY [facility] Last Admin: 08/14/17 10:00 Dose: 40 mg - Labs Labs: 08/15/17 06:13 08/15/17 06:13 PT 11.9 SECONDS (9.7-12.2) 08/10/17 05:54 INR 1.1 08/10/17 05:54 APTT 24 SECONDS (21-34) 08/10/17 05:54 - Constitutional Appears: Non-toxic, No Acute Distress - Head Exam Head Exam: ATRAUMATIC, NORMOCEPHALIC - Eye Exam Eye Exam: EOMI, Normal appearance - ENT Exam ENT Exam: Mucous Membranes Moist Additional comments: NG tube in place with 200 cc of output of 12 hours - Respiratory Exam Respiratory Exam: NORMAL BREATHING PATTERN - Cardiovascular Exam Cardiovascular Exam: Tachycardia - GI/Abdominal Exam GI & Abdominal Exam: Soft. absent: Distended, Guarding, Tenderness Additional comments: midline incision clean,dry and intact - Extremities Exam Extremities Exam: Normal Capillary Refill - Back Exam Back Exam: absent: CVA tenderness (L), CVA tenderness (R) - Neurological Exam Neurological Exam: Alert, Awake - Psychiatric Exam Psychiatric exam: Normal Affect, Normal Mood - Skin Skin Exam: Dry, Intact, Normal Color, Warm Assessment and Plan - Assessment and Plan (Free Text) Plan: 72 M with SBO s/p ex-lap with ventral hernia repair and extensive ROMAIN, POD#5 -Clamp NG tube and check residuals later -Will try clears if residual output is low -Replete potassium -Incentive spirometry -Monitor for bowel function -GI/DVT prophylaxis -Will discuss with Dr. Marcial Rodriguez PGY1
[2017-08-15] MEDS ORDERED: Magnesium Sulfate 1 gm in D5W 1 GM/100 ML BAG IVPB ONE (09:00)
[2017-08-15] MEDS: Enoxaparin 60 mg Syringe SC SCH ×2 (09:55→21:37)
--- NOTE | 2017-08-15 11:14 | CP.PCM.PN ---
Subjective - Date & Time of Evaluation Date of Evaluation: 08/15/17 Time of Evaluation: 11:11 - Subjective Subjective: Vomited last PM UO excellent- off diuretics now mag, K, phos repleted Alert and feels better No new complaints Renal function stabilized Objective - Vital Signs/Intake and Output Vital Signs (last 24 hours): Temp Pulse Resp BP Pulse Ox 98.7 F 120 H 17 111/63 94 L 08/15/17 08:00 08/15/17 10:40 08/15/17 10:40 08/15/17 10:40 08/15/17 10:40 Intake and Output: 08/15/17 08/15/17 06:59 18:59 Intake Total 1800 376 Output Total 790 225 Balance 1010 151 - Medications Medications: Current Medications Acetaminophen (Tylenol 650 Mg Supp) 650 mg RI Q6 PRN PRN Reason: Temperature Enoxaparin Sodium (Lovenox) 60 mg SC Q12 [facility] Last Admin: 08/15/17 09:55 Dose: 60 mg Piperacillin Sod/Tazobactam Sod (Zosyn 2.25 Gm Iv Premix) 2.25 gm in 50 mls @ 100 mls/hr IVPB Q6 [facility] Last Admin: 08/15/17 06:26 Dose: 100 mls/hr Potassium Chloride/Dextrose/Sod Cl (Potassium Chl 20 Meq In D5-1/2ns) 1,000 mls @ 150 mls/hr IV .Q6H40M [facility] Last Admin: 08/15/17 06:25 Dose: 150 mls/hr Potassium Phosphate 15 mmole/ (Dextrose) 255 mls @ 42.5 mls/hr IVPB ONCE ONE Stop: 08/15/17 12:59 Last Admin: 08/15/17 08:06 Dose: 42.5 mls/hr Insulin Human Regular (Novolin R) 0 unit SC Q6 KARAN PRN Reason: Protocol Last Admin: 08/15/17 06:52 Dose: Not Given Metoclopramide HCl (Reglan) 10 mg IVP Q6H [facility] Last Admin: 08/15/17 11:07 Dose: 10 mg Metoprolol Tartrate (Lopressor) 5 mg IVP Q6 [facility] Last Admin: 08/15/17 06:16 Dose: 5 mg Pantoprazole Sodium (Protonix Inj) 40 mg IVP DAILY [facility] Last Admin: 08/15/17 09:55 Dose: 40 mg - Labs Labs: 08/15/17 06:13 08/15/17 06:13 PT 11.9 SECONDS (9.7-12.2) 08/10/17 05:54 INR 1.1 08/10/17 05:54 APTT 24 SECONDS (21-34) 08/10/17 05:54 - Constitutional Appears: No Acute Distress, Chronically Ill - Head Exam Head Exam: ATRAUMATIC, NORMAL INSPECTION - Eye Exam Eye Exam: EOMI, Normal appearance - Neck Exam Neck Exam: Normal Inspection. absent: Tenderness - Respiratory Exam Respiratory Exam: Clear to Ausculation Bilateral, NORMAL BREATHING PATTERN - Cardiovascular Exam Cardiovascular Exam: REGULAR RHYTHM, +S1 - GI/Abdominal Exam GI & Abdominal Exam: Soft. absent: Tenderness - Extremities Exam Extremities Exam: Normal Inspection. absent: Tenderness - Neurological Exam Neurological Exam: Alert, CN II-XII Intact - Skin Skin Exam: Dry, Warm Assessment and Plan (1) Chronic kidney disease, stage III (moderate) Status: Acute (2) Hypertensive chronic kidney disease with stage 1 through stage 4 chronic kidney disease, or unspecified chronic kidney disease Status: Acute (3) Atrial fibrillation, new onset Status: Chronic (4) Hyponatremia with excess extracellular fluid volume Status: Resolved (5) Cellulitis Status: Acute (6) SBO (small bowel obstruction) Status: Acute (7) Infected skin ulcer limited to breakdown of skin Status: Acute (8) Metabolic acidemia Status: Acute - Assessment and Plan (Free Text) Plan: TERRENCE resolved Agree with repletion of lytes Monitor lytes closely IV ABs for cellulitis
--- NOTE | 2017-08-15 11:43 | CP.CCUPN ---
<UnaRachel L. - Last Filed: 08/15/17 11:40> CCU Subjective - Physician Review Subjective (Free Text): Patient seen and examined at bedside. Patient is POD #5 ex-lap. No acute events overnight. Patient is still receiving tube feeds. Patient reports mild abdominal discomfort. Patient denies vomiting and nausea. The patient reports having a bowel movement this morning. 08/15/17 11:42 CCU Objective - Vital Signs / Intake & Output Vital Signs (Last 4 hours): Vital Signs Temp Pulse Resp BP Pulse Ox 08/15/17 11:20 117 H 19 93 L 08/15/17 11:00 111 H 11 L 94 L 08/15/17 10:40 120 H 17 111/63 94 L 08/15/17 10:20 107 H 21 95 08/15/17 10:00 119 H 19 96 08/15/17 09:40 116 H 19 120/73 98 08/15/17 09:20 112 H 16 95 08/15/17 09:00 108 H 18 97 08/15/17 08:40 123 H 15 110/83 90 L 08/15/17 08:00 98.7 F Intake and Output (Last 8hrs): Intake & Output 08/14/17 08/15/17 08/15/17 22:59 06:59 14:59 Intake Total 1200 1200 418 Output Total 730 610 285 Balance 470 590 133 Weight 222 lb 6.4 oz Intake: Intake, IV Amount 1200 1200 418 Right Wrist 1200 1200 318 r wrist 100 Output: Gastric Amount 200 Nares 200 Urine 580 410 285 Urethral (Borges) 580 410 285 Other 150 Other: # Bowel Movements 0 0 - Physical Exam Head: Positive for: Atraumatic, Normocephalic Pupils: Positive for: PERRL Conjunctiva: Positive for: Normal Mouth: Positive for: Moist Mucous Membranes Respiratory/Chest: Positive for: Clear to Auscultation, Good Air Exchange Cardiovascular: Positive for: Normal S1, S2, Tachycardic Abdomen: Positive for: Other (incision with kaetlin ) Lower Extremity: Positive for: Swelling, Erythema Skin: Positive for: Warm, Erythematous, Other (b/l cellulitic changes ) Psychiatric: Positive for: Alert - Medications Active Medications: Active Medications Generic Name Dose Route Start Last Admin Trade Name Freq PRN Reason Stop Dose Admin Acetaminophen 650 mg 08/11/17 01:17 Tylenol 650 Mg Supp NC Q6 PRN Temperature Enoxaparin Sodium 60 mg 08/12/17 22:00 08/15/17 09:55 Lovenox SC 60 mg Q12 KARAN Administration Piperacillin Sod/Tazobactam Sod 2.25 gm in 50 mls @ 100 mls/hr 08/10/17 10:30 08/15/17 06:26 Zosyn 2.25 Gm Iv Premix IVPB 100 mls/hr Q6 KARAN Administration Potassium Chloride/Dextrose/Sod Cl 1,000 mls @ 150 mls/hr 08/14/17 09:00 03/26 06:25 Potassium Chl 20 Meq In D5-1/2ns IV 150 mls/hr .[id number] KARAN Administration Potassium Phosphate 15 mmole/ 255 mls @ 42.5 mls/hr 08/15/17 07:00 08/15/17 08:06 Dextrose IVPB 08/15/17 12:59 42.5 mls/hr ONCE ONE Administration Insulin Human Regular 0 unit 08/15/17 00:00 08/15/17 06:52 Novolin R SC Not Given Q6 KARAN Protocol Metoclopramide HCl 10 mg 08/11/17 11:15 08/15/17 11:07 Reglan IVP 10 mg Q6H KARAN Administration Metoprolol Tartrate 5 mg 08/12/17 19:01 08/15/17 06:16 Lopressor IVP 5 mg Q6 KARAN Administration Pantoprazole Sodium 40 mg 08/10/17 10:00 08/15/17 09:55 Protonix Inj IVP 40 mg DAILY KARAN Administration - Patient Studies Lab Studies: Microbiology Studies 08/10/17 09:00 Gram Stain - Final Leg - Left Wound Culture - Final Proteus Penneri Beta Hemolytic Strep Group B Pseudomonas Aeruginosa Raoultella Ornithinolytica 08/10/17 06:15 Blood Culture - Preliminary Blood NO GROWTH AFTER 4 DAYS 08/10/17 05:45 Blood Culture - Preliminary Blood NO GROWTH AFTER 4 DAYS Lab Studies 08/15/17 08/15/17 08/15/17 Range/Units 06:38 06:13 06:13 WBC 10.7 (4.8-10.8) K/uL RBC 3.66 L (4.40-5.90) Mil/uL Hgb 11.5 L (12.0-18.0) g/dL Hct 33.7 L (35.0-51.0) % MCV 92.3 (80.0-94.0) fL MCH 31.5 H (27.0-31.0) pg MCHC 34.2 (33.0-37.0) g/dL RDW 13.7 (11.5-14.5) % Plt Count 240 (130-400) K/uL MPV 8.6 (7.2-11.7) fL Neut % (Auto) 79.1 H (50.0-75.0) % Lymph % (Auto) 9.9 L (20.0-40.0) % Kidder % (Auto) 8.6 (0.0-10.0) % Eos % (Auto) 2.0 (0.0-4.0) % Baso % (Auto) 0.4 (0.0-2.0) % Neut # 8.5 H (1.8-7.0) K/uL Lymph # 1.1 (1.0-4.3) K/uL Kidder # 0.9 H (0.0-0.8) K/uL Eos # 0.2 (0.0-0.7) K/uL Baso # 0.0 (0.0-0.2) K/uL Neutrophils % (Manual) 81 H (50-75) % Band Neutrophils % 1 (0-2) % Lymphocytes % (Manual) 7 L (20-40) % Monocytes % (Manual) 8 (0-10) % Eosinophils % (Manual) 3 (0-4) % Platelet Estimate Normal (NORMAL) RBC Morphology Normal Sodium 138 (132-148) mmol/L Potassium 3.3 L (3.6-5.2) mmol/L Chloride 106 (98-107) mmol/L Carbon Dioxide 27 (22-30) mmol/L Anion Gap 8 L (10-20) BUN 28 H (9-20) mg/dL Creatinine 0.9 (0.8-1.5) mg/dL Est GFR ( Amer) > 60 Est GFR (Non-Af Amer) > 60 POC Glucose (mg/dL) 166 H (65-110) mg/dL Random Glucose 164 H (75-110) mg/dL Calcium 7.5 L (8.6-10.4) mg/dl Phosphorus 1.5 L (2.5-4.5) mg/dL Magnesium 1.9 (1.6-2.3) mg/dL Total Bilirubin 1.5 H (0.2-1.3) mg/dL AST 25 (17-59) U/L ALT 42 (21-72) U/L Alkaline Phosphatase 81 (38-126) U/L Total Protein 6.0 L (6.3-8.3) g/dL Albumin 2.8 L (3.5-5.0) g/dL Globulin 3.2 (2.2-3.9) gm/dL Albumin/Globulin Ratio 0.9 L (1.0-2.1) 08/15/17 08/14/17 08/14/17 Range/Units 00:01 16:10 11:27 WBC (4.8-10.8) K/uL RBC (4.40-5.90) Mil/uL Hgb (12.0-18.0) g/dL Hct (35.0-51.0) % MCV (80.0-94.0) fL MCH (27.0-31.0) pg MCHC (33.0-37.0) g/dL RDW (11.5-14.5) % Plt Count (130-400) K/uL MPV (7.2-11.7) fL Neut % (Auto) (50.0-75.0) % Lymph % (Auto) (20.0-40.0) % Kidder % (Auto) (0.0-10.0) % Eos % (Auto) (0.0-4.0) % Baso % (Auto) (0.0-2.0) % Neut # (1.8-7.0) K/uL Lymph # (1.0-4.3) K/uL Kidder # (0.0-0.8) K/uL Eos # (0.0-0.7) K/uL Baso # (0.0-0.2) K/uL Neutrophils % (Manual) (50-75) % Band Neutrophils % (0-2) % Lymphocytes % (Manual) (20-40) % Monocytes % (Manual) (0-10) % Eosinophils % (Manual) (0-4) % Platelet Estimate (NORMAL) RBC Morphology Sodium (132-148) mmol/L Potassium (3.6-5.2) mmol/L Chloride (98-107) mmol/L Carbon Dioxide (22-30) mmol/L Anion Gap (10-20) BUN (9-20) mg/dL Creatinine (0.8-1.5) mg/dL Est GFR ( Amer) Est GFR (Non-Af Amer) POC Glucose (mg/dL) 222 H 159 H 162 H (65-110) mg/dL Random Glucose (75-110) mg/dL Calcium (8.6-10.4) mg/dl Phosphorus (2.5-4.5) mg/dL Magnesium (1.6-2.3) mg/dL Total Bilirubin (0.2-1.3) mg/dL AST (17-59) U/L ALT (21-72) U/L Alkaline Phosphatase (38-126) U/L Total Protein (6.3-8.3) g/dL Albumin (3.5-5.0) g/dL Globulin (2.2-3.9) gm/dL Albumin/Globulin Ratio (1.0-2.1) Laboratory Results - last 24 hr 08/14/17 08/14/17 08/15/17 11:27 16:10 00:01 WBC RBC Hgb Hct MCV MCH MCHC RDW Plt Count MPV Neut % (Auto) Lymph % (Auto) Kidder % (Auto) Eos % (Auto) Baso % (Auto) Neut # Lymph # Kidder # Eos # Baso # Neutrophils % (Manual) Band Neutrophils % Lymphocytes % (Manual) Monocytes % (Manual) Eosinophils % (Manual) Platelet Estimate RBC Morphology Sodium Potassium Chloride Carbon Dioxide Anion Gap BUN Creatinine Est GFR ( Amer) Est GFR (Non-Af Amer) POC Glucose (mg/dL) 162 H 159 H 222 H Random Glucose Calcium Phosphorus Magnesium Total Bilirubin AST ALT Alkaline Phosphatase Total Protein Albumin Globulin Albumin/Globulin Ratio 08/15/17 08/15/17 08/15/17 06:13 06:13 06:38 WBC 10.7 RBC 3.66 L Hgb 11.5 L Hct 33.7 L MCV 92.3 MCH 31.5 H MCHC 34.2 RDW 13.7 Plt Count 240 MPV 8.6 Neut % (Auto) 79.1 H Lymph % (Auto) 9.9 L Kidder % (Auto) 8.6 Eos % (Auto) 2.0 Baso % (Auto) 0.4 Neut # 8.5 H Lymph # 1.1 Kidder # 0.9 H Eos # 0.2 Baso # 0.0 Neutrophils % (Manual) 81 H Band Neutrophils % 1 Lymphocytes % (Manual) 7 L Monocytes % (Manual) 8 Eosinophils % (Manual) 3 Platelet Estimate Normal RBC Morphology Normal Sodium 138 Potassium 3.3 L Chloride 106 Carbon Dioxide 27 Anion Gap 8 L BUN 28 H Creatinine 0.9 Est GFR ( Amer) > 60 Est GFR (Non-Af Amer) > 60 POC Glucose (mg/dL) 166 H Random Glucose 164 H Calcium 7.5 L Phosphorus 1.5 L Magnesium 1.9 Total Bilirubin 1.5 H AST 25 ALT 42 Alkaline Phosphatase 81 Total Protein 6.0 L Albumin 2.8 L Globulin 3.2 Albumin/Globulin Ratio 0.9 L Fingerstick Blood Sugar Results: 166 Review of Systems - Constitutional Constitutional: absent: Fever, Chills, Sweats - Cardiovascular Cardiovascular: Leg Edema. absent: Chest Pain, Diaphoresis, Dyspnea - Respiratory Respiratory: absent: Dyspnea - Gastrointestinal Gastrointestinal: Abdominal Pain. absent: Constipation, Diarrhea, Nausea, Vomiting - Genitourinary Genitourinary: absent: Difficulty Urinating - Integumentary Integumentary: absent: Rash - Neurological Neurological: absent: Numbness, Tingling Critical Care Progress Note - Nutrition Nutrition: Nutrition Category Date Time Status NPO Diet [DIET] Diets 08/14/17 Breakfast Active Assessment/Plan - Assessment and Plan (Free Text) Assessment: 72 M presented to the ED 08/10 with constipation and suspected sepsis. Now POD # 5 ex-lap for SBO secondary to incarcerated ventral hernia. Today's Plan: Patient's condition is improving, stable for transport telemetry floor at this time. Neuro: alert and responsive - no sedation - tylenol 650mg NC Q6 PRN fever Cardio: hemodynamically stable, atrial fibrillation - EKG (08/10): atrial fibrillation, HR still persistently elevated - Dr. Henriquez consulted, help appreciated - CHADS-VASc score: 2 - HASBLED score: 1 - Eliquis 5mg BID - Lopressor 5 mg IVP Q6 Pulm: self-extubated 08/12, no acute issues - stable on NC Nephro: Metabolic acidosis, resolved - BUN/Cr (08/15): 28/0.9 - Phosphorus (08/15): 1.5, repleted appropriately - Dr. Luna consulted, help appreciated - adequate urine output, borges still in place GI: POD #5 ex-lap for SBO, incarcerated hernia repair - Dr. Ceja consulted, help appreciated - d/c NGT - glucerna feeds @ 20 - metoclopramide PRN for n/v Endo: Diabetes - A1c of 7.2 - ISS, low dose - Accuchek Q6h MSK: bilateral lower extremity cellulitis - left leg wound culture (08/10): final result grew proteus penneri, GBS, pseudomonas aeruginosa, raoultella ornithinolytica - Wound care consulted, dressing changes every other day - zosyn 2.25 IVPB PPX: - lovenox 60mg SC Q12 - protonix - incentive spirometry <Bishop Morales - Last Filed: 08/22/17 14:02> Critical Care Progress Note - Nutrition Nutrition: Nutrition Category Date Time Status Heart Healthy Diet [DIET] Diets 08/17/17 Lunch Active Attending/Attestation - Attestation I have personally seen and examined this patient.: Yes I have fully participated in the care of the patient.: Yes I have reviewed all pertinent clinical information: Yes Notes (Text): 08/22/17 14:02 Patient examined during the rounds. Discussed with the residents. Labs reviewed in X-ray reviewed in Clinically stable. Transfer to the medical floor.
[2017-08-16] MEDS: Piperacill/Tazo 2.25gm in Dex 2.25 GM/50 ML BAG IVPB SCH ×4 (00:23→17:08)
[2017-08-16] MEDS: Potassium Ch 20mEq in D5-1/2NS 1,000 ML IV SCH ×3 (00:25→18:50)
[2017-08-16] MEDS: Metoprolol 1 mg/ml Inj IVP SCH ×4 (00:25→18:15)
[2017-08-16] MEDS: (Novolin R) Insulin Human Regular 100 units/ml vial SC SCH ×4 (08:13→21:57)
--- NOTE | 2017-08-16 08:59 | CP.PCM.PN ---
Subjective - Date & Time of Evaluation Date of Evaluation: 08/16/17 Time of Evaluation: 07:00 - Subjective Subjective: General Surgery Note for Dr. Ceja Patient seen and examined at bedside. No acute event overnight. Pain is controlled. Patient having bowel movements and passing flatus. NG tube was removed yesterday and he was transferred to the med/surg floor. He is tolerating diet. Will advance to full liquids. Patient has no other complaints at this time. Objective - Vital Signs/Intake and Output Vital Signs (last 24 hours): Temp Pulse Resp BP Pulse Ox 98.1 F 88 18 95/66 L 94 L 08/16/17 07:47 08/16/17 07:47 08/16/17 07:47 08/16/17 07:47 08/16/17 07:47 Intake and Output: 08/16/17 08/16/17 06:59 18:59 Intake Total 500 600 Output Total 150 Balance 350 600 - Medications Medications: Current Medications Acetaminophen (Tylenol 650 Mg Supp) 650 mg [place] Q6 PRN PRN Reason: Temperature Enoxaparin Sodium (Lovenox) 60 mg SC Q12 [facility] Last Admin: 08/15/17 21:37 Dose: 60 mg Piperacillin Sod/Tazobactam Sod (Zosyn 2.25 Gm Iv Premix) 2.25 gm in 50 mls @ 100 mls/hr IVPB Q6 [facility] Last Admin: 08/16/17 05:26 Dose: 100 mls/hr Potassium Chloride/Dextrose/Sod Cl (Potassium Chl 20 Meq In D5-1/2ns) 1,000 mls @ 75 mls/hr IV .[id number] [facility] Last Admin: 08/16/17 07:21 Dose: Not Given Insulin Human Regular (Novolin R) 0 unit SC ACHS KARAN PRN Reason: Protocol Last Admin: 08/16/17 08:13 Dose: 1 unit Metoclopramide HCl (Reglan) 10 mg IVP Q6H KARAN Last Admin: 08/16/17 05:26 Dose: 10 mg Metoprolol Tartrate (Lopressor) 5 mg IVP Q6 KARAN Last Admin: 08/16/17 05:25 Dose: Not Given Pantoprazole Sodium (Protonix Inj) 40 mg IVP DAILY [facility] Last Admin: 08/15/17 09:55 Dose: 40 mg - Labs Labs: 08/15/17 06:13 08/15/17 06:13 PT 11.9 SECONDS (9.7-12.2) 08/10/17 05:54 INR 1.1 08/10/17 05:54 APTT 24 SECONDS (21-34) 08/10/17 05:54 - Constitutional Appears: No Acute Distress - Head Exam Head Exam: ATRAUMATIC, NORMOCEPHALIC - Eye Exam Eye Exam: EOMI, Normal appearance Pupil Exam: PERRL - ENT Exam ENT Exam: Mucous Membranes Moist - Respiratory Exam Respiratory Exam: NORMAL BREATHING PATTERN - Cardiovascular Exam Cardiovascular Exam: REGULAR RHYTHM - GI/Abdominal Exam GI & Abdominal Exam: Soft. absent: Tenderness - Extremities Exam Extremities Exam: Normal Capillary Refill - Neurological Exam Neurological Exam: Alert, Awake - Psychiatric Exam Psychiatric exam: Normal Affect, Normal Mood - Skin Skin Exam: Dry, Normal Color, Warm Assessment and Plan - Assessment and Plan (Free Text) Plan: 72 M with SBO s/p ex-lap with ventral hernia repair and extensive ROMAIN, POD#6 -FLD, ADAT -Incentive spirometry -GI/DVT prophylaxis -Will discuss with Dr. Marcial Rodriguez PGY1
[2017-08-16] MEDS: Enoxaparin 60 mg Syringe SC SCH ×2 (09:21→22:01)
--- NOTE | 2017-08-16 11:50 | CP.PCM.PN ---
Subjective - Date & Time of Evaluation Date of Evaluation: 08/16/17 Time of Evaluation: 11:48 - Subjective Subjective: seen and examiend no complaints denies any sob chest pain dysuria hematuria nausea vomiting diarrhea fevers chills rash headache labs noted Objective - Vital Signs/Intake and Output Vital Signs (last 24 hours): Temp Pulse Resp BP Pulse Ox 98.1 F 88 18 95/66 L 94 L 08/16/17 07:47 08/16/17 08:00 08/16/17 07:47 08/16/17 07:47 08/16/17 07:47 Intake and Output: 08/16/17 08/16/17 06:59 18:59 Intake Total 500 600 Output Total 150 Balance 350 600 - Medications Medications: Current Medications Acetaminophen (Tylenol 650 Mg Supp) 650 mg [place] Q6 PRN PRN Reason: Temperature Enoxaparin Sodium (Lovenox) 60 mg SC Q12 [facility] Last Admin: 08/16/17 09:21 Dose: 60 mg Piperacillin Sod/Tazobactam Sod (Zosyn 2.25 Gm Iv Premix) 2.25 gm in 50 mls @ 100 mls/hr IVPB Q6 [facility] Last Admin: 08/16/17 11:28 Dose: 100 mls/hr Potassium Chloride/Dextrose/Sod Cl (Potassium Chl 20 Meq In D5-1/2ns) 1,000 mls @ 75 mls/hr IV .[id number] [facility] Last Admin: 08/16/17 07:21 Dose: Not Given Insulin Human Regular (Novolin R) 0 unit SC ACHS KARAN PRN Reason: Protocol Last Admin: 08/16/17 08:13 Dose: 1 unit Metoclopramide HCl (Reglan) 10 mg IVP Q6H [facility] Last Admin: 08/16/17 11:28 Dose: 10 mg Metoprolol Tartrate (Lopressor) 5 mg IVP Q6 [facility] Last Admin: 08/16/17 05:25 Dose: Not Given Pantoprazole Sodium (Protonix Inj) 40 mg IVP DAILY [facility] Last Admin: 08/16/17 09:22 Dose: 40 mg - Labs Labs: 08/15/17 06:13 08/15/17 06:13 PT 11.9 SECONDS (9.7-12.2) 08/10/17 05:54 INR 1.1 08/10/17 05:54 APTT 24 SECONDS (21-34) 08/10/17 05:54 - Constitutional Appears: Non-toxic, No Acute Distress, Chronically Ill - Head Exam Head Exam: NORMAL INSPECTION - Eye Exam Eye Exam: Normal appearance - ENT Exam ENT Exam: Mucous Membranes Moist, Normal Exam - Neck Exam Neck Exam: Normal Inspection - Respiratory Exam Respiratory Exam: Clear to Ausculation Bilateral, NORMAL BREATHING PATTERN - Cardiovascular Exam Cardiovascular Exam: REGULAR RHYTHM, RRR - GI/Abdominal Exam GI & Abdominal Exam: Distended, Soft, Normal Bowel Sounds - Extremities Exam Additional comments: b/l legs in dressing - Neurological Exam Neurological Exam: Alert, Awake, Oriented x3 - Psychiatric Exam Psychiatric exam: Normal Affect - Skin Skin Exam: Normal Color Assessment and Plan (1) Cellulitis Status: Acute (2) Chronic kidney disease, stage III (moderate) Status: Acute (3) Hypertensive chronic kidney disease with stage 1 through stage 4 chronic kidney disease, or unspecified chronic kidney disease Status: Acute (4) Hyponatremia Status: Acute (5) Renal failure Status: Acute (6) SBO (small bowel obstruction) Status: Acute (7) Sepsis Status: Acute - Assessment and Plan (Free Text) Assessment: resolved jah stable from renal standpoint
[2017-08-16 11:52] LABS: BASO # 0.1 K/uL (0.0-0.2); BASO % 0.6 % (0.0-2.0); EOS # 0.2 K/uL (0.0-0.7); EOS % 1.2 % (0.0-4.0); LYMPH % 6.5 % (20.0-40.0); MEAN CELL VOLUME 93.7 fL (80.0-94.0); MEAN CORPUSCULAR HEMOGLOBIN 30.8 pg (27.0-31.0); MEAN CORPUSCULAR HGB CONC 32.8 g/dL (33.0-37.0); MEAN PLATELET VOLUME 9.2 fL (7.2-11.7); MONO # 0.9 K/uL (0.0-0.8); MONO % 5.8 % (0.0-10.0); NRBC % 0.1 % (0.0-2.0); PLATELET COUNT 267 K/uL (130-400); RED CELL DISTRIBUTION WIDTH 14.1 % (11.5-14.5)
[2017-08-16 12:08] LABS: CHLORIDE 100 mmol/L (98-107); POTASSIUM 3.5 mmol/L (3.6-5.2); SODIUM 133 mmol/L (132-148)
[2017-08-16 12:11] LABS: ALB/GLOB RATIO 1.4 (1.0-2.1); ALKALINE PHOSPHATASE 106 U/L (38-126); ALT/SGPT 109 U/L (21-72); AST/SGOT 77 U/L (17-59); BILIRUBIN,TOTAL 1.9 mg/dL (0.2-1.3); BLOOD UREA NITROGEN 21 mg/dL (9-20); CALCIUM 7.6 mg/dl (8.6-10.4); CARBON DIOXIDE 24 mmol/L (22-30); GFR AFRICAN-AMERICAN > 60; GLUCOSE,RANDOM 176 mg/dL (75-110); TOTAL PROTEIN 5.7 g/dL (6.3-8.3)
[2017-08-16 12:38] LABS: EOSINOPHIL 1 % (0-4); NEUTROPHIL 85 % (50-75); TOTAL CELLS COUNTED 100
[2017-08-16 12:48] LABS: MAGNESIUM 1.8 mg/dL (1.6-2.3); PHOSPHOROUS 2.2 mg/dL (2.5-4.5)
[2017-08-16 16:40] VITALS: RESP 20
--- NOTE | 2017-08-16 19:45 | CP.PCM.PN ---
Subjective - Date & Time of Evaluation Date of Evaluation: 08/16/17 Time of Evaluation: 19:43 - Subjective Subjective: 72-year-old male with a history of arthritis, history of colon polyp, kidney stones, renal insufficiency came to the emergency room with 1 week of abdominal pain, and episodes of vomiting, got worse recently, yesterday started having bilious vomiting. He did not have any BM at least one week. But increasing abdominal pain also noted, associated with the abdomen or distention. noted to have incarcerated ventral hernia atrial fib s/p hernia repaire post op respiratory failure cellulitis admitted with sepsis on zosyn sitting up alert awake responding Temp Pulse Resp BP Pulse Ox 98 F 105 H 20 101/72 97 08/16/17 16:00 08/16/17 16:00 08/16/17 16:00 08/16/17 16:00 08/16/17 16:00 chest good air entry regular hs abd soft diarreha noted labs noted 08/16/17 11:30 08/16/17 11:30 get ID joanna elevated wbc cellulitis podiatryeval will f/u Objective - Vital Signs/Intake and Output Vital Signs (last 24 hours): Temp Pulse Resp BP Pulse Ox 98 F 105 H 20 101/72 97 08/16/17 16:00 08/16/17 16:00 08/16/17 16:00 08/16/17 16:00 08/16/17 16:00 Intake and Output: 08/16/17 08/17/17 18:59 06:59 Intake Total 600 Balance 600 - Medications Medications: Current Medications Acetaminophen (Tylenol 650 Mg Supp) 650 mg [place] Q6 PRN PRN Reason: Temperature Enoxaparin Sodium (Lovenox) 60 mg SC Q12 [facility] Last Admin: 08/16/17 09:21 Dose: 60 mg Potassium Chloride/Dextrose/Sod Cl (Potassium Chl 20 Meq In D5-1/2ns) 1,000 mls @ 75 mls/hr IV .[id number] [facility] Last Admin: 08/16/17 07:21 Dose: Not Given Imipenem/Cilastatin Sodium 500 (mg/ Sodium Chloride) 100 mls @ 100 mls/hr IVPB Q8 [facility] Insulin Human Regular (Novolin R) 0 unit SC ACHS KARAN PRN Reason: Protocol Last Admin: 11/07/17 17:09 Dose: 1 unit Metoprolol Tartrate (Lopressor) 25 mg PO BID [facility] Pantoprazole Sodium (Protonix Ec Tab) 40 mg PO DAILY KARAN - Labs Labs: 08/16/17 11:30 08/16/17 11:30 PT 11.9 SECONDS (9.7-12.2) 08/10/17 05:54 INR 1.1 08/10/17 05:54 APTT 24 SECONDS (21-34) 08/10/17 05:54 Assessment and Plan (1) Septicemia Status: Acute (2) Atrial fibrillation, new onset Status: Chronic (3) Hypertensive chronic kidney disease with stage 1 through stage 4 chronic kidney disease, or unspecified chronic kidney disease Status: Acute
[2017-08-16] MEDS: Imipenem/Cilastatin 500 MG in Dextrose 5% In Water 100 ML IVPB SCH (22:19)
--- NOTE | 2017-08-16 23:21 | CP.PCM.PN ---
Subjective - Date & Time of Evaluation Date of Evaluation: 08/16/17 Time of Evaluation: 14:10 - Subjective Subjective: No cardiac events noted Physical Exam - Constitutional Additional comments: - Head Exam Head Exam: NORMOCEPHALIC - Eye Exam Eye Exam: EOMI - ENT Exam Additional comments: ETT in place - Respiratory Exam Respiratory Exam: Clear to Auscultation Bilateral. absent: Respiratory Distress - Cardiovascular Exam Cardiovascular Exam: Tachycardia, Irregular Rhythm, +S1, +S2 - GI/Abdominal Exam GI & Abdominal Exam: Normal Bowel Sounds, Soft Additional comments: dressing clean, dry, intact - Exam Additional comments: borges catheter - Extremities Exam Additional comments: pressure offloading boots bilaterally, legs wrapped in xeroform and gauze - Neurological Exam Additional comments: sedated - Skin Skin Exam: Warm Objective - Vital Signs/Intake and Output Vital Signs (last 24 hours): Temp Pulse Resp BP Pulse Ox 98 F 122 H 20 101/72 97 08/16/17 16:00 08/16/17 18:00 08/16/17 16:00 08/16/17 16:00 08/16/17 16:00 Intake and Output: 08/16/17 08/17/17 18:59 06:59 Intake Total 600 Balance 600 - Medications Medications: Current Medications Acetaminophen (Tylenol 650 Mg Supp) 650 mg [place] Q6 PRN PRN Reason: Temperature Enoxaparin Sodium (Lovenox) 60 mg SC Q12 [facility] Last Admin: 08/16/17 22:01 Dose: 60 mg Potassium Chloride/Dextrose/Sod Cl (Potassium Chl 20 Meq In D5-1/2ns) 1,000 mls @ 75 mls/hr IV .[id number] [facility] Last Admin: 08/16/17 18:50 Dose: 75 mls/hr Imipenem/Cilastatin Sodium 500 (mg/ Dextrose) 100 mls @ 100 mls/hr IVPB Q8 [facility] Last Admin: 08/16/17 22:19 Dose: 100 mls/hr Insulin Human Regular (Novolin R) 0 unit SC ACHS [facility] PRN Reason: Protocol Last Admin: 08/16/17 21:57 Dose: Not Given Metoprolol Tartrate (Lopressor) 25 mg PO BID [facility] Pantoprazole Sodium (Protonix Ec Tab) 40 mg PO DAILY [facility] - Labs Labs: 08/16/17 11:30 08/16/17 11:30 PT 11.9 SECONDS (9.7-12.2) 08/10/17 05:54 INR 1.1 08/10/17 05:54 APTT 24 SECONDS (21-34) 08/10/17 05:54 Assessment and Plan - Assessment and Plan (Free Text) Assessment: (1) Chronic kidney disease, stage III (moderate) Status: Acute (2) Hypertensive chronic kidney disease with stage 1 through stage 4 chronic kidney disease, or unspecified chronic kidney disease Status: Acute (3) Atrial fibrillation, new onset Status: Acute (4) Hyponatremia with excess extracellular fluid volume Status: Acute (5) Cellulitis Status: Acute (6) SBO (small bowel obstruction) Status: Acute (7) Infected skin ulcer limited to breakdown of skin Status: Acute (8) Metabolic acidemia Status: Acute
[2017-08-17] MEDS: Potassium Ch 20mEq in D5-1/2NS 1,000 ML IV SCH ×2 (05:23→08:32)
[2017-08-17] MEDS: Imipenem/Cilastatin 500 MG in Dextrose 5% In Water 100 ML IVPB SCH ×3 (05:49→22:21)
[2017-08-17 08:07] LABS: BASO # 0.1 K/uL (0.0-0.2); BASO % 0.5 % (0.0-2.0); EOS # 0.3 K/uL (0.0-0.7); EOS % 2.7 % (0.0-4.0); HEMATOCRIT 34.2 % (35.0-51.0); LYMPH # 1.2 K/uL (1.0-4.3); LYMPH % 9.2 % (20.0-40.0); MEAN CORPUSCULAR HEMOGLOBIN 30.9 pg (27.0-31.0); MEAN CORPUSCULAR HGB CONC 33.3 g/dL (33.0-37.0); MEAN PLATELET VOLUME 9.1 fL (7.2-11.7); MONO # 0.9 K/uL (0.0-0.8); MONO % 6.9 % (0.0-10.0); PLATELET COUNT 205 K/uL (130-400); RED CELL DISTRIBUTION WIDTH 13.8 % (11.5-14.5); WHITE BLOOD COUNT 12.9 K/uL (4.8-10.8)
[2017-08-17 08:23] LABS: CHLORIDE 99 mmol/L (98-107); POTASSIUM 3.5 mmol/L (3.6-5.2); SODIUM 129 mmol/L (132-148)
[2017-08-17 08:25] LABS: ALB/GLOB RATIO 1.4 (1.0-2.1); ALKALINE PHOSPHATASE 86 U/L (38-126); AST/SGOT 68 U/L (17-59); BILIRUBIN,TOTAL 1.5 mg/dL (0.2-1.3); BLOOD UREA NITROGEN 18 mg/dL (9-20); CARBON DIOXIDE 22 mmol/L (22-30); GFR AFRICAN-AMERICAN > 60; TOTAL PROTEIN 4.9 g/dL (6.3-8.3)
[2017-08-17 08:26] LABS: ALT/SGPT 132 U/L (21-72); CALCIUM 7.1 mg/dl (8.6-10.4); GLUCOSE,RANDOM 133 mg/dL (75-110); MAGNESIUM 1.6 mg/dL (1.6-2.3)
[2017-08-17] MEDS ORDERED: Digoxin 500 mcg/2ml (0.5 mg/2ml) Inj IVP ONE (08:30)
[2017-08-17] MEDS: (Novolin R) Insulin Human Regular 100 units/ml vial SC SCH ×4 (08:31→22:13)
[2017-08-17 09:03] LABS: EOSINOPHIL 2 % (0-4); NEUTROPHIL 82 % (50-75); TOTAL CELLS COUNTED 100
[2017-08-17] MEDS: Enoxaparin 60 mg Syringe SC SCH ×2 (10:23→22:21)
[2017-08-17] MEDS: Pantoprazole 40 mg EC Tab PO SCH (10:24)
--- NOTE | 2017-08-17 11:58 | CP.PCM.PN ---
Subjective - Date & Time of Evaluation Date of Evaluation: 08/17/17 Time of Evaluation: 11:57 - Subjective Subjective: Surgery: Dr. Ceja Pt seen and examined. Resting comfortably in bed. No complaints of pain. He is tolerating FLD. No N/V. He is passing flatus and had BM this AM. He would like to eat more. Objective - Vital Signs/Intake and Output Vital Signs (last 24 hours): Temp Pulse Resp BP Pulse Ox 97.8 F 110 H 20 103/61 96 08/17/17 08:05 08/17/17 10:23 08/17/17 08:05 08/17/17 10:23 08/17/17 08:05 Intake and Output: 08/17/17 08/17/17 06:59 18:59 Intake Total 600 Balance 600 - Medications Medications: Current Medications Acetaminophen (Tylenol 650 Mg Supp) 650 mg [place] Q6 PRN PRN Reason: Temperature Digoxin (Lanoxin) 0.25 mg PO DAILY@1800 [facility] Enoxaparin Sodium (Lovenox) 60 mg SC Q12 [facility] Last Admin: 08/17/17 10:23 Dose: 60 mg Potassium Chloride/Dextrose/Sod Cl (Potassium Chl 20 Meq In D5-1/2ns) 1,000 mls @ 75 mls/hr IV .[id number] [facility] Last Admin: 08/17/17 08:32 Dose: 75 mls/hr Imipenem/Cilastatin Sodium 500 (mg/ Dextrose) 100 mls @ 100 mls/hr IVPB Q8 [facility] Last Admin: 08/17/17 05:49 Dose: 100 mls/hr Insulin Human Regular (Novolin R) 0 unit SC ACHS [facility] PRN Reason: Protocol Last Admin: 08/17/17 08:31 Dose: 1 unit Metoprolol Tartrate (Lopressor) 25 mg PO BID [facility] Pantoprazole Sodium (Protonix Ec Tab) 40 mg PO DAILY [facility] Last Admin: 08/17/17 10:24 Dose: 40 mg - Labs Labs: 08/17/17 07:56 08/17/17 07:56 PT 11.9 SECONDS (9.7-12.2) 08/10/17 05:54 INR 1.1 08/10/17 05:54 APTT 24 SECONDS (21-34) 08/10/17 05:54 - Constitutional Appears: Non-toxic, No Acute Distress - Head Exam Head Exam: ATRAUMATIC, NORMOCEPHALIC - Eye Exam Eye Exam: EOMI Pupil Exam: NORMAL ACCOMODATION - ENT Exam ENT Exam: Mucous Membranes Moist - Neck Exam Neck Exam: Full ROM - Respiratory Exam Respiratory Exam: NORMAL BREATHING PATTERN. absent: Accessory Muscle Use, Respiratory Distress - GI/Abdominal Exam GI & Abdominal Exam: Soft. absent: Distended, Firm, Guarding, Rigid, Tenderness , Rebound Additional comments: midline incision C/D/I w. katelin - Neurological Exam Neurological Exam: Alert, Oriented x3 - Skin Skin Exam: Dry, Normal Color, Warm Assessment and Plan - Assessment and Plan (Free Text) Assessment: 72M with SBO s/p ex-lap with ventral hernia repair and extensive ROMAIN, POD#7 -Diet advanced to HHD -Encourage OOB, PT, and IS use -DVT prophylaxis -d/w attending [facility] PGY3
--- NOTE | 2017-08-17 13:22 | CP.PCM.CON ---
History of Present Illness - History of Present Illness History of Present Illness: Podiatry Patient seen at bedside along with resident DR Aldana who will be dictating the consult in total. Patient was consulted for bilateral cellulitis of the legs that extends down to his ankles. He has been bandaged with xerofoam dressings. [place] legs are showing signs of improvement. No drainage evident and it appears that the erythema and edema of both legs are resolving as well. We will continue the use of the xerofroam dressings. He also has onychomycosis of the toenails. I debrided both hallux and the left 2 and 3 tenail which were especially elongated and thickened and posed a risk for infection. We will follow patient while he is hospitalized. Past Patient History - Infectious Disease Hx of Infectious Diseases: None - Past Medical History & Family History Past Medical History?: Yes Past Family History: Reviewed and not pertinent - Past Social History Smoking Status: Former Smoker Chewing Tobacco Use: No Cigar Use: No Alcohol: Occasional Home Situation {Lives}: With Family - CARDIAC Hx Peripheral Edema: Yes - PULMONARY Hx Respiratory Disorders: No - NEUROLOGICAL Hx Neurological Disorder: No - HEENT Hx HEENT Problems: Yes Hx Glaucoma: Yes - RENAL Hx Chronic Kidney Disease: Yes Hx Kidney Stones: Yes - ENDOCRINE/METABOLIC Hx Endocrine Disorders: No - HEMATOLOGICAL/ONCOLOGICAL Hx Blood Disorders: No - INTEGUMENTARY Hx Dermatological Problems: No - MUSCULOSKELETAL/RHEUMATOLOGICAL Hx Arthritis: Yes (FINGERS) - GASTROINTESTINAL Hx Gastrointestinal Disorders: Yes Hx Bowel Surgery: Yes (COLON RESECTION) - GENITOURINARY/GYNECOLOGICAL Hx Genitourinary Disorders: Yes Hx Prostate Problems: Yes - PSYCHIATRIC Hx Substance Use: No - SURGICAL HISTORY Hx Surgeries: Yes Other/Comment: Cysto, stent insertion 09/29/15, Colon resction 2010. [facility]ITH[facility] - ANESTHESIA Hx Anesthesia: Yes Hx Anesthesia Reactions: No Hx Malignant Hyperthermia: No Meds Allergies/Adverse Reactions: Allergies Allergy/AdvReac Type Severity Reaction Status Date / Time cefdinir [From Omnicef] Allergy Verified 08/10/17 05:16 - Medications Medications: Current Medications Acetaminophen (Tylenol 650 Mg Supp) 650 mg [place] Q6 PRN PRN Reason: Temperature Digoxin (Lanoxin) 0.25 mg PO DAILY@1800 [facility] Enoxaparin Sodium (Lovenox) 60 mg SC Q12 [facility] Last Admin: 08/17/17 10:23 Dose: 60 mg Imipenem/Cilastatin Sodium 500 (mg/ Dextrose) 100 mls @ 100 mls/hr IVPB Q8 [facility] Last Admin: 08/17/17 05:49 Dose: 100 mls/hr Insulin Human Regular (Novolin R) 0 unit SC ACHS [facility] PRN Reason: Protocol Last Admin: 08/17/17 08:31 Dose: 1 unit Metoprolol Tartrate (Lopressor) 25 mg PO BID [facility] Pantoprazole Sodium (Protonix Ec Tab) 40 mg PO DAILY [facility] Last Admin: 08/17/17 10:24 Dose: 40 mg Results - Vital Signs Recent Vital Signs: Last Vital Signs Temp 97.8 F 08/17/17 08:05 Pulse 110 H 08/17/17 10:23 Resp 20 08/17/17 08:05 BP 103/61 08/17/17 10:23 Pulse Ox 96 08/17/17 08:05 - Labs Result Diagrams: 08/17/17 07:56 08/17/17 07:56 Labs: Laboratory Results - last 24 hr 08/16/17 08/16/17 08/17/17 17:03 21:32 06:24 WBC RBC Hgb Hct MCV MCH MCHC RDW Plt Count MPV Neut % (Auto) Lymph % (Auto) White % (Auto) Eos % (Auto) Baso % (Auto) Neut # Lymph # [place] # Eos # Baso # Neutrophils % (Manual) Lymphocytes % (Manual) Monocytes % (Manual) Eosinophils % (Manual) Platelet Estimate RBC Morphology Sodium Potassium Chloride Carbon Dioxide Anion Gap BUN Creatinine Est GFR ( Amer) Est GFR (Non-Af Amer) POC Glucose (mg/dL) 158 H 157 H 152 H Random Glucose Calcium Magnesium Total Bilirubin AST ALT Alkaline Phosphatase Total Protein Albumin Globulin Albumin/Globulin Ratio 08/17/17 08/17/17 08/17/17 07:56 07:56 11:28 WBC 12.9 H RBC 3.68 L Hgb 11.4 L Hct 34.2 L MCV 93.0 MCH 30.9 MCHC 33.3 RDW 13.8 Plt Count 205 MPV 9.1 Neut % (Auto) 80.7 H Lymph % (Auto) 9.2 L [place] % (Auto) 6.9 Eos % (Auto) 2.7 Baso % (Auto) 0.5 Neut # 10.4 H Lymph # 1.2 White # 0.9 H Eos # 0.3 Baso # 0.1 Neutrophils % (Manual) 82 H Lymphocytes % (Manual) 7 L Monocytes % (Manual) 9 Eosinophils % (Manual) 2 Platelet Estimate Normal RBC Morphology Normal Sodium 129 L Potassium 3.5 L Chloride 99 Carbon Dioxide 22 Anion Gap 11 BUN 18 Creatinine 0.9 Est GFR ( Amer) > 60 Est GFR (Non-Af Amer) > 60 POC Glucose (mg/dL) 169 H Random Glucose 133 H Calcium 7.1 L Magnesium 1.6 Total Bilirubin 1.5 H AST 68 H ALT 132 H D Alkaline Phosphatase 86 Total Protein 4.9 L Albumin 2.8 L Globulin 2.0 L Albumin/Globulin Ratio 1.4
[2017-08-17] MEDS: Magnesium Sulfate 1 gm in D5W 1 GM/100 ML BAG IVPB SCH ×2 (14:16→15:08)
--- NOTE | 2017-08-17 15:55 | CP.PCM.PN ---
Subjective - Date & Time of Evaluation Date of Evaluation: 08/17/17 Time of Evaluation: 14:30 - Subjective Subjective: feeling better now on solids continued diarrhea notes increased water intake no chest pain no sob no nausea, no vomiting diarrhea +, mild abdominal pain no pruritis no fever no headache no cough no focal weakness no rash Objective - Vital Signs/Intake and Output Vital Signs (last 24 hours): Temp Pulse Resp BP Pulse Ox 97.8 F 110 H 20 103/61 96 08/17/17 08:05 08/17/17 10:23 08/17/17 08:05 08/17/17 10:23 08/17/17 08:05 Intake and Output: 08/17/17 08/17/17 06:59 18:59 Intake Total 600 Balance 600 - Medications Medications: Current Medications Acetaminophen (Tylenol 650 Mg Supp) 650 mg [place] Q6 PRN PRN Reason: Temperature Digoxin (Lanoxin) 0.25 mg PO DAILY@1800 [facility] Enoxaparin Sodium (Lovenox) 60 mg SC Q12 [facility] Last Admin: 08/17/17 10:23 Dose: 60 mg Imipenem/Cilastatin Sodium 500 (mg/ Dextrose) 100 mls @ 100 mls/hr IVPB Q8 [facility] Last Admin: 08/17/17 05:49 Dose: 100 mls/hr Insulin Human Regular (Novolin R) 0 unit SC ACHS [facility] PRN Reason: Protocol Last Admin: 08/17/17 14:17 Dose: 1 unit Metoprolol Tartrate (Lopressor) 25 mg PO BID [facility] Last Admin: 08/17/17 10:00 Dose: Not Given Pantoprazole Sodium (Protonix Ec Tab) 40 mg PO DAILY [facility] Last Admin: 08/17/17 10:24 Dose: 40 mg - Labs Labs: 08/17/17 07:56 08/17/17 07:56 PT 11.9 SECONDS (9.7-12.2) 08/10/17 05:54 INR 1.1 08/10/17 05:54 APTT 24 SECONDS (21-34) 08/10/17 05:54 - Constitutional Appears: Chronically Ill - Eye Exam Eye Exam: EOMI - Neck Exam Neck Exam: Full ROM. absent: Lymphadenopathy - Respiratory Exam Respiratory Exam: Decreased Breath Sounds. absent: Accessory Muscle Use - Cardiovascular Exam Cardiovascular Exam: REGULAR RHYTHM. absent: Rubs - GI/Abdominal Exam GI & Abdominal Exam: Distended, Tenderness - Neurological Exam Neurological Exam: Alert, Oriented x3 Assessment and Plan - Assessment and Plan (Free Text) Assessment: jah resolved mild hyponatremia, urine and blood work ordered advised to decrease free water intake, take in liquids with electrolytes
--- NOTE | 2017-08-17 17:00 | CP.PCM.CON ---
History of Present Illness - History of Present Illness History of Present Illness: 72 y/o M w/PMHx of persistent lower extremity cellulitis, colon polyp resection , CKD, recurrent nephrolithiasis. S/P intestinal obstruction with laparotomy, hernia repair and lysis of adhesions IV rx for cellulitis / stasis ulcers in progress PMHx: CKD, lower extremity cellulitis, large colonic polyps (resected), nephrolithiasis, BPH, PSH: about 80% of colon resected 2010, ureteral stent and lithotripsy [id number] FH: non-contributory SH: Patient lives at home with son. Pt reports that he drank socially but quit 9 years ago. He also was a light tobacco user but quit that around 9 years ago. He denies ever using illicit drug use. Home meds: none Allergies: cefdinir Review of Systems - Constitutional Constitutional: As Per HPI - EENT Eyes: absent: As Per HPI, Blind Spots, Blurred Vision, Change in Vision, Decreased Night Vision, Diplopia, Discharge, Dry Eye, Exophthalmos, Floaters, Irritation, Itchy Eyes, Loss of Peripheral Vision, Pain, Photophobia, Requires Corrective Lenses, Sees Flashes, Spots in Vision, Tunnel Vision, Other Visual Disturbances, Loss of Vision, Other Ears: absent: As Per HPI, Decreased Hearing, Ear Discharge, Ear Pain, Tinnitus, Abnormal Hearing, Disequilibrium, Dizziness, Other Nose/Mouth/Throat: absent: As Per HPI, Epistaxis, Nasal Congestion, Nasal Discharge, Nasal Obstruction, Nasal Trauma, Nose Pain, Post Nasal Drip, Sinus Pain, Sinus Pressure, Bleeding Gums, Change in Voice, Dental Pain, Dry Mouth, Dysphagia, Halitosis, Hoarsness, Lip Swelling, Mouth Lesions, Mouth Pain, Odynophagia, Sore Throat, Throat Swelling, Tongue Swelling, Facial Pain, Neck Pain, Neck Mass, Other - Cardiovascular Cardiovascular: As Per HPI - Respiratory Respiratory: As Per HPI, Cough, Dyspnea - Gastrointestinal Gastrointestinal: As Per HPI - Genitourinary Genitourinary: absent: As Per HPI, Change in Urinary Stream, Difficulty Urinating, Dysuria, Flank Pain, Hematuria, Pyuria, Nocturia, Urinary Incontinence, Urinary Frequency, Urinary Hesitance, Urinary Urgency, Voiding Freq/Small Amts, Freq UTI, Hx Renal/Bladder Calculi, Hx /Renal Surgery, Bladder Distension, Other - Musculoskeletal Musculoskeletal: As Per HPI - Integumentary Integumentary: As Per HPI, Skin Pain, Wounds - Neurological Neurological: absent: As Per HPI, Abnormal Gait, Abnormal Hearing, Abnormal Movements, Abnormal Speech, Behavioral Changes, Burning Sensations, Confusion, Convulsions, Disequilibrium, Dizziness, Numbness, Focal Weakness, Frequent Falls , Headaches, Lack of Coordination, Loss of Vision, Memory Loss, Paresthesias, Radicular Pain, Restless Legs, Sensory Deficit, Syncope, Tingling, Tremor, Vertigo, Weakness, Other Visual Disturbances, Other - Psychiatric Psychiatric: absent: As Per HPI, Abnormal Sleep Pattern, Anhedonia, Anxiety, Auditory Hallucinations, Behavioral Changes, Change in Appetite, Change in Libido, Confusion, Depression, Difficulty Concentrating, Hallucinations, Homicidal Ideation, Hopelessness, Irritability, Memory Loss, Mood Swings, Panic Attacks, Paranoia, Suicidal Ideation, Visual Hallucinations, Tactile Hallucinations, Other - Endocrine Endocrine: absent: As Per HPI, Change in Body Appearance, Change in Libido, Cold Intolorance, Deepening of Voice, Excessive Sweating, Fatigue, Flushing, Heat Intolorance, Increase in Ring/Shoe/Hat Size, Palpitations, Polydipsia, Polyphagia, Polyuria, Other - Hematologic/Lymphatic Hematologic: absent: As Per HPI, Easy Bleeding, Easy Bruising, Lymphadenopathy, Other Past Patient History - Infectious Disease Hx of Infectious Diseases: None - Past Medical History & Family History Past Medical History?: Yes Past Family History: Reviewed and not pertinent - Past Social History Smoking Status: Former Smoker Chewing Tobacco Use: No Cigar Use: No Alcohol: Occasional Home Situation {Lives}: With Family - CARDIAC Hx Peripheral Edema: Yes - PULMONARY Hx Respiratory Disorders: No - NEUROLOGICAL Hx Neurological Disorder: No - HEENT Hx HEENT Problems: Yes Hx Glaucoma: Yes - RENAL Hx Chronic Kidney Disease: Yes Hx Kidney Stones: Yes - ENDOCRINE/METABOLIC Hx Endocrine Disorders: No - HEMATOLOGICAL/ONCOLOGICAL Hx Blood Disorders: No - INTEGUMENTARY Hx Dermatological Problems: No - MUSCULOSKELETAL/RHEUMATOLOGICAL Hx Arthritis: Yes (FINGERS) - GASTROINTESTINAL Hx Gastrointestinal Disorders: Yes Hx Bowel Surgery: Yes (COLON RESECTION) - GENITOURINARY/GYNECOLOGICAL Hx Genitourinary Disorders: Yes Hx Prostate Problems: Yes - PSYCHIATRIC Hx Substance Use: No - SURGICAL HISTORY Hx Surgeries: Yes Other/Comment: Cysto, stent insertion 09/29/15, Colon resction 2010. [facility]/LITH[facility]IP[facility] - ANESTHESIA Hx Anesthesia: Yes Hx Anesthesia Reactions: No Hx Malignant Hyperthermia: No Meds Allergies/Adverse Reactions: Allergies Allergy/AdvReac Type Severity Reaction Status Date / Time cefdinir [From Omnicef] Allergy Verified 08/10/17 05:16 - Medications Medications: Current Medications Acetaminophen (Tylenol 650 Mg Supp) 650 mg IN Q6 PRN PRN Reason: Temperature Digoxin (Lanoxin) 0.25 mg PO DAILY@1800 [facility] Enoxaparin Sodium (Lovenox) 60 mg SC Q12 [facility] Last Admin: 08/17/17 10:23 Dose: 60 mg Imipenem/Cilastatin Sodium 500 (mg/ Dextrose) 100 mls @ 100 mls/hr IVPB Q8 [facility] Last Admin: 08/17/17 16:24 Dose: 100 mls/hr Insulin Human Regular (Novolin R) 0 unit SC ACHS [facility] PRN Reason: Protocol Last Admin: 08/17/17 14:17 Dose: 1 unit Metoprolol Tartrate (Lopressor) 25 mg PO BID [facility] Last Admin: 08/17/17 10:00 Dose: Not Given Pantoprazole Sodium (Protonix Ec Tab) 40 mg PO DAILY [facility] Last Admin: 08/17/17 10:24 Dose: 40 mg Physical Exam - Constitutional Appears: Non-toxic, Chronically Ill - Head Exam Head Exam: NORMOCEPHALIC - Eye Exam Eye Exam: PERRL. absent: Scleral icterus - ENT Exam ENT Exam: Mucous Membranes Dry - Neck Exam Neck exam: Negative for: Lymphadenopathy - Respiratory Exam Respiratory Exam: Decreased Breath Sounds, Rhonchi - Cardiovascular Exam Cardiovascular Exam: REGULAR RHYTHM, +S1, +S2 - GI/Abdominal Exam GI & Abdominal Exam: Diminished Bowel Sounds, Soft. absent: Tenderness - Rectal Exam Rectal Exam: Deferred - Exam Exam: NORMAL INSPECTION - Extremities Exam Extremities exam: Positive for: pedal edema, tenderness. Negative for: calf tenderness, pedal pulses present - Back Exam Back exam: absent: CVA tenderness (L), CVA tenderness (R) - Neurological Exam Neurological exam: Alert, CN II-XII Intact, Oriented x3, Reflexes Normal - Psychiatric Exam Psychiatric exam: Depressed - Skin Skin Exam: Dry Results - Vital Signs Recent Vital Signs: Last Vital Signs Temp 97.7 F 08/17/17 16:00 Pulse 94 H 08/17/17 16:00 Resp 20 08/17/17 16:00 BP 100/62 08/17/17 16:00 Pulse Ox 99 08/17/17 16:00 - Labs Result Diagrams: 08/17/17 07:56 08/17/17 07:56 Labs: Laboratory Results - last 24 hr 08/16/17 08/16/17 08/17/17 17:03 21:32 06:24 WBC RBC Hgb Hct MCV MCH MCHC RDW Plt Count MPV Neut % (Auto) Lymph % (Auto) [place] % (Auto) Eos % (Auto) Baso % (Auto) Neut # Lymph # [place] # Eos # Baso # Neutrophils % (Manual) Lymphocytes % (Manual) Monocytes % (Manual) Eosinophils % (Manual) Platelet Estimate RBC Morphology Sodium Potassium Chloride Carbon Dioxide Anion Gap BUN Creatinine Est GFR ( Amer) Est GFR (Non-Af Amer) POC Glucose (mg/dL) 158 H 157 H 152 H Random Glucose Calcium Magnesium Total Bilirubin AST ALT Alkaline Phosphatase Total Protein Albumin Globulin Albumin/Globulin Ratio 08/17/17 08/17/17 08/17/17 07:56 07:56 11:28 WBC 12.9 H RBC 3.68 L Hgb 11.4 L Hct 34.2 L MCV 93.0 MCH 30.9 MCHC 33.3 RDW 13.8 Plt Count 205 MPV 9.1 Neut % (Auto) 80.7 H Lymph % (Auto) 9.2 L [place] % (Auto) 6.9 Eos % (Auto) 2.7 Baso % (Auto) 0.5 Neut # 10.4 H Lymph # 1.2 [place] # 0.9 H Eos # 0.3 Baso # 0.1 Neutrophils % (Manual) 82 H Lymphocytes % (Manual) 7 L Monocytes % (Manual) 9 Eosinophils % (Manual) 2 Platelet Estimate Normal RBC Morphology Normal Sodium 129 L Potassium 3.5 L Chloride 99 Carbon Dioxide 22 Anion Gap 11 BUN 18 Creatinine 0.9 Est GFR ( Amer) > 60 Est GFR (Non-Af Amer) > 60 POC Glucose (mg/dL) 169 H Random Glucose 133 H Calcium 7.1 L Magnesium 1.6 Total Bilirubin 1.5 H AST 68 H ALT 132 H D Alkaline Phosphatase 86 Total Protein 4.9 L Albumin 2.8 L Globulin 2.0 L Albumin/Globulin Ratio 1.4 08/17/17 16:09 WBC RBC Hgb Hct MCV MCH MCHC RDW Plt Count MPV Neut % (Auto) Lymph % (Auto) [place] % (Auto) Eos % (Auto) Baso % (Auto) Neut # Lymph # [place] # Eos # Baso # Neutrophils % (Manual) Lymphocytes % (Manual) Monocytes % (Manual) Eosinophils % (Manual) Platelet Estimate RBC Morphology Sodium Potassium Chloride Carbon Dioxide Anion Gap BUN Creatinine Est GFR ( Amer) Est GFR (Non-Af Amer) POC Glucose (mg/dL) 154 H Random Glucose Calcium Magnesium Total Bilirubin AST ALT Alkaline Phosphatase Total Protein Albumin Globulin Albumin/Globulin Ratio Assessment & Plan (1) Cellulitis Status: Acute (2) Chronic kidney disease, stage III (moderate) Status: Acute (3) Hypertensive chronic kidney disease with stage 1 through stage 4 chronic kidney disease, or unspecified chronic kidney disease Status: Acute (4) SBO (small bowel obstruction) Status: Acute (5) Infected skin ulcer limited to breakdown of skin Status: Acute
[2017-08-17] MEDS: Digoxin 250 mcg (0.25 mg) Tab PO SCH (19:05)
--- NOTE | 2017-08-17 20:07 | CP.PCM.CON ---
History of Present Illness - History of Present Illness History of Present Illness: 72 y/o male with pmhx of Arthritis, Colonic Polyps, LLE fracture, Kidney Stones , Peripheral Edema, CKD seen at bedside with attending Dr. To regarding bilateral leg cellulitis. Patient has a dressing on consisting of xeroform, DSD and montanez been keeping the dressing clean,dry,intact while in the hospital. Patient appears in NAD and denies any pain in his extremities at this time. Patient denies any n/d/f/c at this time. Review of Systems - Constitutional Constitutional: As Per HPI Past Patient History - Infectious Disease Hx of Infectious Diseases: None - Past Medical History & Family History Past Medical History?: Yes Past Family History: Reviewed and not pertinent - Past Social History Smoking Status: Former Smoker Chewing Tobacco Use: No Cigar Use: No Alcohol: Occasional Home Situation {Lives}: With Family - CARDIAC Hx Peripheral Edema: Yes - PULMONARY Hx Respiratory Disorders: No - NEUROLOGICAL Hx Neurological Disorder: No - HEENT Hx HEENT Problems: Yes Hx Glaucoma: Yes - RENAL Hx Chronic Kidney Disease: Yes Hx Kidney Stones: Yes - ENDOCRINE/METABOLIC Hx Endocrine Disorders: No - HEMATOLOGICAL/ONCOLOGICAL Hx Blood Disorders: No - INTEGUMENTARY Hx Dermatological Problems: No - MUSCULOSKELETAL/RHEUMATOLOGICAL Hx Arthritis: Yes (FINGERS) - GASTROINTESTINAL Hx Gastrointestinal Disorders: Yes Hx Bowel Surgery: Yes (COLON RESECTION) - GENITOURINARY/GYNECOLOGICAL Hx Genitourinary Disorders: Yes Hx Prostate Problems: Yes - PSYCHIATRIC Hx Substance Use: No - SURGICAL HISTORY Hx Surgeries: Yes Other/Comment: Cysto, stent insertion 09/29/15, Colon resction 2010. [facility] - ANESTHESIA Hx Anesthesia: Yes Hx Anesthesia Reactions: No Hx Malignant Hyperthermia: No Meds Allergies/Adverse Reactions: Allergies Allergy/AdvReac Type Severity Reaction Status Date / Time cefdinir [From Omnicef] Allergy Verified 08/10/17 05:16 - Medications Medications: Current Medications Acetaminophen (Tylenol 650 Mg Supp) 650 mg [place] Q6 PRN PRN Reason: Temperature Digoxin (Lanoxin) 0.25 mg PO DAILY@1800 [facility] Enoxaparin Sodium (Lovenox) 60 mg SC Q12 [facility] Last Admin: 08/17/17 10:23 Dose: 60 mg Imipenem/Cilastatin Sodium 500 (mg/ Dextrose) 100 mls @ 100 mls/hr IVPB Q8 [facility] Last Admin: 08/17/17 16:24 Dose: 100 mls/hr Insulin Human Regular (Novolin R) 0 unit SC ACHS [facility] PRN Reason: Protocol Last Admin: 08/17/17 18:50 Dose: 1 unit Metoprolol Tartrate (Lopressor) 25 mg PO BID [facility] Last Admin: 08/17/17 18:50 Dose: 25 mg Pantoprazole Sodium (Protonix Ec Tab) 40 mg PO DAILY [facility] Last Admin: 08/17/17 10:24 Dose: 40 mg Physical Exam - Constitutional Appears: Well, Non-toxic, No Acute Distress - Extremities Exam Additional comments: Vasc: palpable DP pulses, lightly palpable PT pulses b/l, TG wnl, CFT < 3 sec to all digits neuro: grossly diminished derm: thickened, elongated, dystrophic nailsx 10, mild edema and erythema noted to bilateral legs extending from ankles to just distal tibial tuberosity, superficial ulcerations with mild scabbing lesions noted on anterior shins, no purulence,no active drainage or bleeding, no malodor, no fluctuance ortho: no pain on palpation of legs b/l - Neurological Exam Neurological exam: Alert, Oriented x3 - Psychiatric Exam Psychiatric exam: Normal Affect, Normal Mood Results - Vital Signs Recent Vital Signs: Last Vital Signs Temp 97.7 F 08/17/17 16:00 Pulse 94 H 08/17/17 16:00 Resp 20 08/17/17 16:00 BP 107/71 08/17/17 18:50 Pulse Ox 99 08/17/17 16:00 - Labs Result Diagrams: 08/17/17 07:56 08/17/17 07:56 Labs: Laboratory Results - last 24 hr 08/16/17 08/17/17 08/17/17 21:32 06:24 07:56 WBC 12.9 H RBC 3.68 L Hgb 11.4 L Hct 34.2 L MCV 93.0 MCH 30.9 MCHC 33.3 RDW 13.8 Plt Count 205 MPV 9.1 Neut % (Auto) 80.7 H Lymph % (Auto) 9.2 L [place] % (Auto) 6.9 Eos % (Auto) 2.7 Baso % (Auto) 0.5 Neut # 10.4 H Lymph # 1.2 [place] # 0.9 H Eos # 0.3 Baso # 0.1 Neutrophils % (Manual) 82 H Lymphocytes % (Manual) 7 L Monocytes % (Manual) 9 Eosinophils % (Manual) 2 Platelet Estimate Normal RBC Morphology Normal Sodium Potassium Chloride Carbon Dioxide Anion Gap BUN Creatinine Est GFR ( Amer) Est GFR (Non-Af Amer) POC Glucose (mg/dL) 157 H 152 H Random Glucose Calcium Magnesium Total Bilirubin AST ALT Alkaline Phosphatase Total Protein Albumin Globulin Albumin/Globulin Ratio 08/17/17 08/17/17 08/17/17 07:56 11:28 16:09 WBC RBC Hgb Hct MCV MCH MCHC RDW Plt Count MPV Neut % (Auto) Lymph % (Auto) [place] % (Auto) Eos % (Auto) Baso % (Auto) Neut # Lymph # [place] # Eos # Baso # Neutrophils % (Manual) Lymphocytes % (Manual) Monocytes % (Manual) Eosinophils % (Manual) Platelet Estimate RBC Morphology Sodium 129 L Potassium 3.5 L Chloride 99 Carbon Dioxide 22 Anion Gap 11 BUN 18 Creatinine 0.9 Est GFR ( Amer) > 60 Est GFR (Non-Af Amer) > 60 POC Glucose (mg/dL) 169 H 154 H Random Glucose 133 H Calcium 7.1 L Magnesium 1.6 Total Bilirubin 1.5 H AST 68 H ALT 132 H D Alkaline Phosphatase 86 Total Protein 4.9 L Albumin 2.8 L Globulin 2.0 L Albumin/Globulin Ratio 1.4 Assessment & Plan - Assessment and Plan (Free Text) Assessment: 72 y/o male with pmhx of Arthritis, Colonic Polyps, LLE fracture, Kidney Stones , Peripheral Edema, CKD, seen at bedside for bilateral leg cellulitis that is resolving Plan: patient evaluated and chart reviewed seen at bedside with attending Dr. To labs and vitals reviewed; WBC 12.9, afebrile continue IV abx as per ID applied xeroform, DSD to bilateral lower extremities trimmed toenails x 4 down to hygienic length using sterile nippers patient tolerated procedure without incident podiatry will continue to monitor while patient remains in house
--- NOTE | 2017-08-17 20:58 | CP.PCM.PN ---
Subjective - Date & Time of Evaluation Date of Evaluation: 08/17/17 Time of Evaluation: 20:57 - Subjective Subjective: had tachy this am now comfortable no fever seen by renal started on digoxin will f/u pt Objective - Vital Signs/Intake and Output Vital Signs (last 24 hours): Temp Pulse Resp BP Pulse Ox 97.7 F 92 H 20 107/71 99 08/17/17 16:00 08/17/17 16:00 08/17/17 16:00 08/17/17 18:50 08/17/17 16:00 Intake and Output: 08/17/17 08/18/17 18:59 06:59 Intake Total 600 Balance 600 - Medications Medications: Current Medications Acetaminophen (Tylenol 650 Mg Supp) 650 mg [place] Q6 PRN PRN Reason: Temperature Digoxin (Lanoxin) 0.25 mg PO DAILY@1800 [facility] Enoxaparin Sodium (Lovenox) 60 mg SC Q12 [facility] Last Admin: 08/17/17 10:23 Dose: 60 mg Imipenem/Cilastatin Sodium 500 (mg/ Dextrose) 100 mls @ 100 mls/hr IVPB Q8 [facility] Last Admin: 08/17/17 16:24 Dose: 100 mls/hr Insulin Human Regular (Novolin R) 0 unit SC ACHS [facility] PRN Reason: Protocol Last Admin: 08/17/17 18:50 Dose: 1 unit Metoprolol Tartrate (Lopressor) 25 mg PO BID [facility] Last Admin: 08/17/17 18:50 Dose: 25 mg Pantoprazole Sodium (Protonix Ec Tab) 40 mg PO DAILY [facility] Last Admin: 08/17/17 10:24 Dose: 40 mg - Labs Labs: 08/17/17 07:56 08/17/17 07:56 PT 11.9 SECONDS (9.7-12.2) 08/10/17 05:54 INR 1.1 08/10/17 05:54 APTT 24 SECONDS (21-34) 08/10/17 05:54 Assessment and Plan (1) Septicemia Status: Acute (2) Atrial fibrillation, new onset Status: Chronic (3) Hypertensive chronic kidney disease with stage 1 through stage 4 chronic kidney disease, or unspecified chronic kidney disease Status: Acute
--- NOTE | 2017-08-17 23:31 | CP.PCM.PN ---
Subjective - Date & Time of Evaluation Date of Evaluation: 08/17/17 Time of Evaluation: 15:30 - Subjective Subjective: Patient comfortable No events noted Physical Exam - Constitutional Additional comments: - Head Exam Head Exam: NORMOCEPHALIC - Eye Exam Eye Exam: EOMI - ENT Exam Additional comments: ETT in place - Respiratory Exam Respiratory Exam: Clear to Auscultation Bilateral. absent: Respiratory Distress - Cardiovascular Exam Cardiovascular Exam: Tachycardia, Irregular Rhythm, +S1, +S2 - GI/Abdominal Exam GI & Abdominal Exam: Normal Bowel Sounds, Soft Additional comments: dressing clean, dry, intact - Exam Additional comments: borges catheter - Extremities Exam Additional comments: pressure offloading boots bilaterally, legs wrapped in xeroform and gauze - Neurological Exam Additional comments: sedated - Skin Skin Exam: Warm Objective - Vital Signs/Intake and Output Vital Signs (last 24 hours): Temp Pulse Resp BP Pulse Ox 97.7 F 92 H 20 107/71 99 08/17/17 16:00 08/17/17 16:00 08/17/17 16:00 08/17/17 18:50 08/17/17 16:00 Intake and Output: 08/17/17 08/18/17 18:59 06:59 Intake Total 600 Balance 600 - Medications Medications: Current Medications Acetaminophen (Tylenol 650 Mg Supp) 650 mg [place] Q6 PRN PRN Reason: Temperature Digoxin (Lanoxin) 0.25 mg PO DAILY@1800 [facility] Last Admin: 08/17/17 19:05 Dose: 0.25 mg Enoxaparin Sodium (Lovenox) 60 mg SC Q12 [facility] Last Admin: 08/17/17 22:21 Dose: 60 mg Imipenem/Cilastatin Sodium 500 (mg/ Dextrose) 100 mls @ 100 mls/hr IVPB Q8 [facility] Last Admin: 08/17/17 22:21 Dose: 100 mls/hr Insulin Human Regular (Novolin R) 0 unit SC ACHS [facility] PRN Reason: Protocol Last Admin: 08/17/17 22:13 Dose: Not Given Metoprolol Tartrate (Lopressor) 25 mg PO BID [facility] Last Admin: 08/17/17 18:50 Dose: 25 mg Pantoprazole Sodium (Protonix Ec Tab) 40 mg PO DAILY [facility] Last Admin: 08/17/17 10:24 Dose: 40 mg - Labs Labs: 08/17/17 07:56 08/17/17 07:56 PT 11.9 SECONDS (9.7-12.2) 08/10/17 05:54 INR 1.1 08/10/17 05:54 APTT 24 SECONDS (21-34) 08/10/17 05:54 Assessment and Plan - Assessment and Plan (Free Text) Assessment: (1) Chronic kidney disease, stage III (moderate) Status: Acute (2) Hypertensive chronic kidney disease with stage 1 through stage 4 chronic kidney disease, or unspecified chronic kidney disease Status: Acute (3) Atrial fibrillation, new onset Status: Acute (4) Hyponatremia with excess extracellular fluid volume Status: Acute (5) Cellulitis Status: Acute (6) SBO (small bowel obstruction) Status: Acute (7) Infected skin ulcer limited to breakdown of skin Status: Acute (8) Metabolic acidemia Status: Acute
[2017-08-18] MEDS: Imipenem/Cilastatin 500 MG in Dextrose 5% In Water 100 ML IVPB SCH ×3 (06:08→21:07)
[2017-08-18] MEDS: (Novolin R) Insulin Human Regular 100 units/ml vial SC SCH ×4 (07:30→22:00)
--- NOTE | 2017-08-18 08:22 | CP.PCM.PN ---
Subjective - Date & Time of Evaluation Date of Evaluation: 08/12/17 Time of Evaluation: 08:21 - Subjective Subjective: Patient is being managed by the ICU team. Extubated. Tolerating. I awakened responding. Abdominal pain noted. Mild distention present Clinically stable otherwise. Continue the current treatment Objective - Vital Signs/Intake and Output Vital Signs (last 24 hours): Temp Pulse Resp BP Pulse Ox 97.8 F 98 H 20 105/71 98 08/18/17 07:39 08/18/17 07:39 08/18/17 07:39 08/18/17 07:39 08/18/17 07:39 Intake and Output: 08/18/17 08/18/17 06:59 18:59 Intake Total 220 Output Total 750 Balance -530 - Medications Medications: Current Medications Acetaminophen (Tylenol 650 Mg Supp) 650 mg [place] Q6 PRN PRN Reason: Temperature Digoxin (Lanoxin) 0.25 mg PO DAILY@1800 [facility] Last Admin: 08/17/17 19:05 Dose: 0.25 mg Enoxaparin Sodium (Lovenox) 60 mg SC Q12 [facility] Last Admin: 08/17/17 22:21 Dose: 60 mg Imipenem/Cilastatin Sodium 500 (mg/ Dextrose) 100 mls @ 100 mls/hr IVPB Q8 [facility] Last Admin: 08/18/17 06:08 Dose: 100 mls/hr Insulin Human Regular (Novolin R) 0 unit SC ACHS [facility] PRN Reason: Protocol Last Admin: 08/17/17 22:13 Dose: Not Given Metoprolol Tartrate (Lopressor) 25 mg PO BID [facility] Metronidazole (Flagyl) 250 mg PO Q8H [facility] Pantoprazole Sodium (Protonix Ec Tab) 40 mg PO DAILY [facility] Last Admin: 08/17/17 10:24 Dose: 40 mg Saccharomyces Boulardii (Florastor) 250 mg PO TID [facility] - Labs Labs: 08/17/17 07:56 08/17/17 07:56 PT 11.9 SECONDS (9.7-12.2) 08/10/17 05:54 INR 1.1 08/10/17 05:54 APTT 24 SECONDS (21-34) 08/10/17 05:54
--- NOTE | 2017-08-18 08:25 | CP.PCM.PN ---
Subjective - Date & Time of Evaluation Date of Evaluation: 08/18/17 Time of Evaluation: 08:23 - Subjective Subjective: Patient is awake. Comfortable. Having diarrhea this morning also. Mild redness in the back noted. Mild tachycardia noted, the patient is on the low side. He is eating well. No abdominal pain. Patient wanted to get up and walk. Leg swelling is noted. 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 08/17/17 07:56 08/17/17 07:56 Assessment and recommendation: 72 male atrial fibrillation, hypertension, cellulitis, sepsis, incarcerated abdominal hernia, status post surgery, septic shock. Improving now. Out of bed to chair. Physical therapy. Objective - Vital Signs/Intake and Output Vital Signs (last 24 hours): Temp Pulse Resp BP Pulse Ox 97.8 F 98 H 20 105/71 98 08/18/17 07:39 08/18/17 07:39 08/18/17 07:39 08/18/17 07:39 08/18/17 07:39 Intake and Output: 08/18/17 08/18/17 06:59 18:59 Intake Total 220 Output Total 750 Balance -530 - Medications Medications: Current Medications Acetaminophen (Tylenol 650 Mg Supp) 650 mg [place] Q6 PRN PRN Reason: Temperature Digoxin (Lanoxin) 0.25 mg PO DAILY@1800 [facility] Last Admin: 08/17/17 19:05 Dose: 0.25 mg Enoxaparin Sodium (Lovenox) 60 mg SC Q12 [facility] Last Admin: 08/17/17 22:21 Dose: 60 mg Imipenem/Cilastatin Sodium 500 (mg/ Dextrose) 100 mls @ 100 mls/hr IVPB Q8 [facility] Last Admin: 08/18/17 06:08 Dose: 100 mls/hr Insulin Human Regular (Novolin R) 0 unit SC ACHS [facility] PRN Reason: Protocol Last Admin: 08/17/17 22:13 Dose: Not Given Metoprolol Tartrate (Lopressor) 25 mg PO BID [facility] Metronidazole (Flagyl) 250 mg PO Q8H [facility] Pantoprazole Sodium (Protonix Ec Tab) 40 mg PO DAILY [facility] Last Admin: 08/17/17 10:24 Dose: 40 mg Saccharomyces Boulardii (Florastor) 250 mg PO TID [facility] - Labs Labs: 08/17/17 07:56 08/17/17 07:56 PT 11.9 SECONDS (9.7-12.2) 08/10/17 05:54 INR 1.1 08/10/17 05:54 APTT 24 SECONDS (21-34) 08/10/17 05:54
--- NOTE | 2017-08-18 08:28 | CP.PCM.PN ---
Subjective - Date & Time of Evaluation Date of Evaluation: 08/18/17 Time of Evaluation: 07:10 - Subjective Subjective: General Surgery Pt S&E, NAEO. Tolerating heart healthy diet, denies pain. Not ambulating often, would like to do more. Objective - Vital Signs/Intake and Output Vital Signs (last 24 hours): Temp Pulse Resp BP Pulse Ox 97.8 F 98 H 20 105/71 98 08/18/17 07:39 08/18/17 07:39 08/18/17 07:39 08/18/17 07:39 08/18/17 07:39 Intake and Output: 08/18/17 08/18/17 06:59 18:59 Intake Total 220 Output Total 750 Balance -530 - Medications Medications: Current Medications Acetaminophen (Tylenol 650 Mg Supp) 650 mg [place] Q6 PRN PRN Reason: Temperature Digoxin (Lanoxin) 0.25 mg PO DAILY@1800 [facility] Last Admin: 08/17/17 19:05 Dose: 0.25 mg Enoxaparin Sodium (Lovenox) 60 mg SC Q12 [facility] Last Admin: 08/17/17 22:21 Dose: 60 mg Imipenem/Cilastatin Sodium 500 (mg/ Dextrose) 100 mls @ 100 mls/hr IVPB Q8 [facility] Last Admin: 08/18/17 06:08 Dose: 100 mls/hr Insulin Human Regular (Novolin R) 0 unit SC ACHS [facility] PRN Reason: Protocol Last Admin: 08/17/17 22:13 Dose: Not Given Metoprolol Tartrate (Lopressor) 25 mg PO BID [facility] Pantoprazole Sodium (Protonix Ec Tab) 40 mg PO DAILY [facility] Last Admin: 08/17/17 10:24 Dose: 40 mg - Labs Labs: 08/17/17 07:56 08/17/17 07:56 PT 11.9 SECONDS (9.7-12.2) 08/10/17 05:54 INR 1.1 08/10/17 05:54 APTT 24 SECONDS (21-34) 08/10/17 05:54 - Constitutional Appears: Non-toxic, No Acute Distress - Head Exam Head Exam: ATRAUMATIC, NORMOCEPHALIC - Respiratory Exam Respiratory Exam: NORMAL BREATHING PATTERN. absent: Respiratory Distress - GI/Abdominal Exam GI & Abdominal Exam: Soft. absent: Distended, Firm, Guarding, Rigid, Tenderness Additional comments: midline incision C/D/I w. katelin - Neurological Exam Neurological Exam: Alert, Awake - Skin Skin Exam: Dry, Warm Assessment and Plan - Assessment and Plan (Free Text) Assessment: 72M with SBO s/p ex-lap with ventral hernia repair and extensive ROMAIN, POD#8 Plan: PT to see Encourage ambulation and IS use DVT ppx Ok to start DC planning from surgical standpoint. D/W Dr. Marcial Thornton PGY4
[2017-08-18 08:32] LABS: HEMATOCRIT 33.6 % (35.0-51.0); MEAN CELL VOLUME 93.2 fL (80.0-94.0); MEAN CORPUSCULAR HEMOGLOBIN 30.9 pg (27.0-31.0); MEAN CORPUSCULAR HGB CONC 33.2 g/dL (33.0-37.0); MEAN PLATELET VOLUME 9.3 fL (7.2-11.7); RED CELL DISTRIBUTION WIDTH 13.9 % (11.5-14.5); WHITE BLOOD COUNT 11.8 K/uL (4.8-10.8)
[2017-08-18 08:51] LABS: CHLORIDE 100 mmol/L (98-107); POTASSIUM 3.6 mmol/L (3.6-5.2); SODIUM 130 mmol/L (132-148)
[2017-08-18 08:53] LABS: AST/SGOT 40 U/L (17-59); BILIRUBIN,TOTAL 0.9 mg/dL (0.2-1.3); CARBON DIOXIDE 22 mmol/L (22-30); GFR AFRICAN-AMERICAN > 60
[2017-08-18 08:54] LABS: ALB/GLOB RATIO 1.2 (1.0-2.1); ALKALINE PHOSPHATASE 82 U/L (38-126); ALT/SGPT 115 U/L (21-72); BLOOD UREA NITROGEN 13 mg/dL (9-20); GLUCOSE,RANDOM 124 mg/dL (75-110); TOTAL PROTEIN 4.8 g/dL (6.3-8.3)
[2017-08-18 08:55] LABS: CALCIUM 7.3 mg/dl (8.6-10.4)
[2017-08-18] MEDS: Enoxaparin 60 mg Syringe SC SCH ×2 (10:06→21:07)
[2017-08-18] MEDS: Saccharomyces Boulardi 250 mg Cap PO SCH ×3 (10:07→17:23)
[2017-08-18] MEDS: Pantoprazole 40 mg EC Tab PO SCH (10:07)
--- NOTE | 2017-08-18 10:50 | CP.PCM.PN ---
Subjective - Date & Time of Evaluation Date of Evaluation: 08/18/17 Time of Evaluation: 10:47 - Subjective Subjective: Events noted Remains on rx for LE cellulitis Has had diarrhea TERRENCE has improved Lytes acceptable BP controlled Objective - Vital Signs/Intake and Output Vital Signs (last 24 hours): Temp Pulse Resp BP Pulse Ox 97.8 F 96 H 20 99/63 L 98 08/18/17 07:39 08/18/17 10:06 08/18/17 07:39 08/18/17 10:07 08/18/17 07:39 Intake and Output: 08/18/17 08/18/17 06:59 18:59 Intake Total 220 Output Total 750 Balance -530 - Medications Medications: Current Medications Acetaminophen (Tylenol 650 Mg Supp) 650 mg RI Q6 PRN PRN Reason: Temperature Digoxin (Lanoxin) 0.25 mg PO DAILY@1800 [facility] Last Admin: 08/17/17 19:05 Dose: 0.25 mg Enoxaparin Sodium (Lovenox) 60 mg SC Q12 [facility] Last Admin: 08/18/17 10:06 Dose: 60 mg Imipenem/Cilastatin Sodium 500 (mg/ Dextrose) 100 mls @ 100 mls/hr IVPB Q8 [facility] Last Admin: 08/18/17 06:08 Dose: 100 mls/hr Insulin Human Regular (Novolin R) 0 unit SC ACHS [facility] PRN Reason: Protocol Last Admin: 08/18/17 07:30 Dose: Not Given Metoprolol Tartrate (Lopressor) 25 mg PO BID [facility] Last Admin: 08/18/17 10:07 Dose: Not Given Metronidazole (Flagyl) 250 mg PO Q8H [facility] Last Admin: 08/18/17 10:07 Dose: 250 mg Pantoprazole Sodium (Protonix Ec Tab) 40 mg PO DAILY [facility] Last Admin: 08/18/17 10:07 Dose: 40 mg Saccharomyces Boulardii (Florastor) 250 mg PO TID [facility] Last Admin: 08/18/17 10:07 Dose: 250 mg - Labs Labs: 08/18/17 08:20 08/18/17 08:20 PT 11.9 SECONDS (9.7-12.2) 08/10/17 05:54 INR 1.1 08/10/17 05:54 APTT 24 SECONDS (21-34) 11/01/17 05:54 - Constitutional Appears: No Acute Distress, Chronically Ill - Head Exam Head Exam: ATRAUMATIC, NORMAL INSPECTION - Eye Exam Eye Exam: EOMI, Normal appearance - Neck Exam Neck Exam: Normal Inspection. absent: Tenderness - Respiratory Exam Respiratory Exam: Clear to Ausculation Bilateral, NORMAL BREATHING PATTERN - Cardiovascular Exam Cardiovascular Exam: REGULAR RHYTHM, +S1 - GI/Abdominal Exam GI & Abdominal Exam: Soft. absent: Tenderness - Extremities Exam Extremities Exam: Calf Tenderness, Tenderness - Neurological Exam Neurological Exam: Alert, CN II-XII Intact - Skin Skin Exam: Dry, Warm Assessment and Plan (1) Chronic kidney disease, stage III (moderate) Status: Acute (2) Hypertensive chronic kidney disease with stage 1 through stage 4 chronic kidney disease, or unspecified chronic kidney disease Status: Acute (3) Atrial fibrillation, new onset Status: Chronic (4) Hyponatremia with excess extracellular fluid volume Status: Resolved (5) Cellulitis Status: Acute (6) SBO (small bowel obstruction) Status: Acute (7) Infected skin ulcer limited to breakdown of skin Status: Acute (8) Metabolic acidemia Status: Acute - Assessment and Plan (Free Text) Plan: Renal status stable Will see again as needed
--- NOTE | 2017-08-18 15:25 | CP.PCM.PN ---
Subjective - Date & Time of Evaluation Date of Evaluation: 08/18/17 Time of Evaluation: 03:15 - Subjective Subjective: Podiatry Patient seen with resident Dr Aldana. Bandages in place. Patient not in any distress. To continue xeroform dressings for now. Objective - Vital Signs/Intake and Output Vital Signs (last 24 hours): Temp Pulse Resp BP Pulse Ox 97.8 F 96 H 20 99/63 L 98 08/18/17 07:39 08/18/17 10:06 08/18/17 07:39 08/18/17 10:07 08/18/17 07:39 Intake and Output: 08/18/17 08/18/17 06:59 18:59 Intake Total 220 Output Total 750 Balance -530 - Medications Medications: Current Medications Acetaminophen (Tylenol 650 Mg Supp) 650 mg [place] Q6 PRN PRN Reason: Temperature Digoxin (Lanoxin) 0.25 mg PO DAILY@1800 [facility] Last Admin: 08/17/17 19:05 Dose: 0.25 mg Enoxaparin Sodium (Lovenox) 60 mg SC Q12 [facility] Last Admin: 08/18/17 10:06 Dose: 60 mg Imipenem/Cilastatin Sodium 500 (mg/ Dextrose) 100 mls @ 100 mls/hr IVPB Q8 [facility] Last Admin: 08/18/17 14:08 Dose: 100 mls/hr Insulin Human Regular (Novolin R) 0 unit SC ACHS [facility] PRN Reason: Protocol Last Admin: 08/18/17 14:07 Dose: 1 unit Metoprolol Tartrate (Lopressor) 25 mg PO BID [facility] Last Admin: 08/18/17 10:07 Dose: Not Given Metronidazole (Flagyl) 250 mg PO Q8H [facility] Last Admin: 08/18/17 10:07 Dose: 250 mg Pantoprazole Sodium (Protonix Ec Tab) 40 mg PO DAILY [facility] Last Admin: 08/18/17 10:07 Dose: 40 mg Saccharomyces Boulardii (Florastor) 250 mg PO TID [facility] Last Admin: 08/18/17 14:11 Dose: 250 mg - Labs Labs: 08/18/17 08:20 08/18/17 08:20 PT 11.9 SECONDS (9.7-12.2) 08/10/17 05:54 INR 1.1 08/10/17 05:54 APTT 24 SECONDS (21-34) 08/10/17 05:54
[2017-08-18] MEDS: Digoxin 250 mcg (0.25 mg) Tab PO SCH (17:23)
--- NOTE | 2017-08-19 00:13 | CP.PCM.PN ---
Subjective - Date & Time of Evaluation Date of Evaluation: 08/18/17 Time of Evaluation: 09:35 - Subjective Subjective: Patient seen and evaluated Denies chest pain and dyspnea No cardiac events noted Physical Exam - Constitutional Additional comments: - Head Exam Head Exam: NORMOCEPHALIC - Eye Exam Eye Exam: EOMI - ENT Exam Additional comments: ETT in place - Respiratory Exam Respiratory Exam: Clear to Auscultation Bilateral. absent: Respiratory Distress - Cardiovascular Exam Cardiovascular Exam: Tachycardia, Irregular Rhythm, +S1, +S2 - GI/Abdominal Exam GI & Abdominal Exam: Normal Bowel Sounds, Soft Additional comments: dressing clean, dry, intact - Exam Additional comments: borges catheter - Extremities Exam Additional comments: pressure offloading boots bilaterally, legs wrapped in xeroform and gauze - Neurological Exam Additional comments: sedated - Skin Skin Exam: Warm Objective - Vital Signs/Intake and Output Vital Signs (last 24 hours): Temp Pulse Resp BP Pulse Ox 97.9 F 107 H 20 92/62 L 96 08/18/17 15:00 08/18/17 19:52 08/18/17 15:00 08/18/17 19:12 08/18/17 15:00 Intake and Output: 08/18/17 08/19/17 18:59 06:59 Intake Total 400 Output Total 0 Balance 400 - Medications Medications: Current Medications Acetaminophen (Tylenol 650 Mg Supp) 650 mg [place] Q6 PRN PRN Reason: Temperature Digoxin (Lanoxin) 0.25 mg PO DAILY@1800 [facility] Last Admin: 08/18/17 17:23 Dose: 0.25 mg Enoxaparin Sodium (Lovenox) 60 mg SC Q12 [facility] Last Admin: 08/18/17 21:07 Dose: 60 mg Imipenem/Cilastatin Sodium 500 (mg/ Dextrose) 100 mls @ 100 mls/hr IVPB Q8 [facility] Last Admin: 08/18/17 21:07 Dose: 100 mls/hr Insulin Human Regular (Novolin R) 0 unit SC ACHS [facility] PRN Reason: Protocol Last Admin: 08/18/17 22:00 Dose: Not Given Metoprolol Tartrate (Lopressor) 25 mg PO BID [facility] Last Admin: 08/18/17 19:12 Dose: Not Given Metronidazole (Flagyl) 250 mg PO Q8H [facility] Last Admin: 08/19/17 00:05 Dose: 250 mg Pantoprazole Sodium (Protonix Ec Tab) 40 mg PO DAILY [facility] Last Admin: 08/18/17 10:07 Dose: 40 mg Saccharomyces Boulardii (Florastor) 250 mg PO TID [facility] Last Admin: 08/18/17 17:23 Dose: 250 mg - Labs Labs: 08/18/17 08:20 08/18/17 08:20 PT 11.9 SECONDS (9.7-12.2) 08/10/17 05:54 INR 1.1 08/10/17 05:54 APTT 24 SECONDS (21-34) 08/10/17 05:54 Assessment and Plan - Assessment and Plan (Free Text) Assessment: (1) Chronic kidney disease, stage III (moderate) Status: Acute (2) Hypertensive chronic kidney disease with stage 1 through stage 4 chronic kidney disease, or unspecified chronic kidney disease Status: Acute (3) Atrial fibrillation, new onset Status: Acute (4) Hyponatremia with excess extracellular fluid volume Status: Acute (5) Cellulitis Status: Acute (6) SBO (small bowel obstruction) Status: Acute (7) Infected skin ulcer limited to breakdown of skin Status: Acute (8) Metabolic acidemia Status: Acute
[2017-08-19] MEDS: Imipenem/Cilastatin 500 MG in Dextrose 5% In Water 100 ML IVPB SCH ×2 (05:33→14:06)
[2017-08-19 08:02] LABS: CHLORIDE 101 mmol/L (98-107); POTASSIUM 3.5 mmol/L (3.6-5.2); SODIUM 131 mmol/L (132-148)
[2017-08-19 08:04] LABS: ALB/GLOB RATIO 1.2 (1.0-2.1); AST/SGOT 22 U/L (17-59); BILIRUBIN,TOTAL 0.9 mg/dL (0.2-1.3); CARBON DIOXIDE 22 mmol/L (22-30); GFR AFRICAN-AMERICAN > 60; TOTAL PROTEIN 4.7 g/dL (6.3-8.3)
[2017-08-19 08:05] LABS: ALKALINE PHOSPHATASE 74 U/L (38-126); ALT/SGPT 83 U/L (21-72); BLOOD UREA NITROGEN 14 mg/dL (9-20); CALCIUM 7.4 mg/dl (8.6-10.4); GLUCOSE,RANDOM 119 mg/dL (75-110)
[2017-08-19 08:09] LABS: HEMATOCRIT 33.3 % (35.0-51.0); MEAN CELL VOLUME 93.2 fL (80.0-94.0); MEAN CORPUSCULAR HEMOGLOBIN 31.6 pg (27.0-31.0); MEAN CORPUSCULAR HGB CONC 33.9 g/dL (33.0-37.0); MEAN PLATELET VOLUME 9.3 fL (7.2-11.7); RED CELL DISTRIBUTION WIDTH 14.2 % (11.5-14.5); WHITE BLOOD COUNT 10.8 K/uL (4.8-10.8)
[2017-08-19 08:28] VITALS: O2SAT 97
[2017-08-19] MEDS: (Novolin R) Insulin Human Regular 100 units/ml vial SC SCH ×3 (08:29→16:30)
--- NOTE | 2017-08-19 10:12 | CP.PCM.PN ---
Subjective - Date & Time of Evaluation Date of Evaluation: 08/19/17 Time of Evaluation: 06:55 - Subjective Subjective: General Surgery Pt S&E, NAEO. Tolerating heart healthy diet, denies pain. Worked with PT yesterday, feels he is getting stronger slowly. Objective - Vital Signs/Intake and Output Vital Signs (last 24 hours): Temp Pulse Resp BP Pulse Ox 97.6 F 95 H 20 115/71 97 08/19/17 08:27 08/19/17 08:27 08/19/17 08:27 08/19/17 08:27 08/19/17 08:27 Intake and Output: 08/19/17 08/19/17 06:59 18:59 Intake Total 740 Output Total 550 Balance 190 - Medications Medications: Current Medications Acetaminophen (Tylenol 650 Mg Supp) 650 mg [place] Q6 PRN PRN Reason: Temperature Digoxin (Lanoxin) 0.25 mg PO DAILY@1800 [facility] Last Admin: 08/18/17 17:23 Dose: 0.25 mg Enoxaparin Sodium (Lovenox) 60 mg SC Q12 [facility] Last Admin: 08/18/17 21:07 Dose: 60 mg Imipenem/Cilastatin Sodium 500 (mg/ Dextrose) 100 mls @ 100 mls/hr IVPB Q8 [facility] Last Admin: 08/19/17 05:33 Dose: 100 mls/hr Insulin Human Regular (Novolin R) 0 unit SC ACHS [facility] PRN Reason: Protocol Last Admin: 08/19/17 08:29 Dose: Not Given Metoprolol Tartrate (Lopressor) 25 mg PO BID [facility] Last Admin: 08/18/17 19:12 Dose: Not Given Metronidazole (Flagyl) 250 mg PO Q8H [facility] Last Admin: 08/19/17 08:56 Dose: 250 mg Pantoprazole Sodium (Protonix Ec Tab) 40 mg PO DAILY [facility] Last Admin: 08/18/17 10:07 Dose: 40 mg Saccharomyces Boulardii (Florastor) 250 mg PO TID [facility] Last Admin: 08/18/17 17:23 Dose: 250 mg - Labs Labs: 08/19/17 07:41 08/19/17 07:41 PT 11.9 SECONDS (9.7-12.2) 08/10/17 05:54 INR 1.1 08/10/17 05:54 APTT 24 SECONDS (21-34) 08/10/17 05:54 - Constitutional Appears: Non-toxic, No Acute Distress - Head Exam Head Exam: ATRAUMATIC, NORMOCEPHALIC - Eye Exam Eye Exam: EOMI. absent: Scleral icterus - Respiratory Exam Respiratory Exam: NORMAL BREATHING PATTERN. absent: Respiratory Distress - GI/Abdominal Exam GI & Abdominal Exam: Soft. absent: Distended, Firm, Guarding, Rigid, Tenderness Additional comments: Incision C/D/I katelin in place - Neurological Exam Neurological Exam: Alert, Awake - Skin Skin Exam: Dry, Warm Assessment and Plan - Assessment and Plan (Free Text) Assessment: 72M with SBO s/p ex-lap with ventral hernia repair and extensive ROMAIN, POD#9 Plan: Encourage ambulation and IS use Replete electrolytes per medicine. Ok for DC from a surgical standpoint. Follow up with Dr. Ceja in 1 week for staple removal D/W Dr. Marcial Thornton PGY4
[2017-08-19] MEDS: Enoxaparin 60 mg Syringe SC SCH (11:25)
[2017-08-19] MEDS: Saccharomyces Boulardi 250 mg Cap PO SCH ×3 (11:26→17:44)
[2017-08-19] MEDS: Pantoprazole 40 mg EC Tab PO SCH (11:26)
--- NOTE | 2017-08-19 12:07 | CP.PCM.PN ---
<Alejandrina Aldana - Last Filed: 08/19/17 12:04> Subjective - Date & Time of Evaluation Date of Evaluation: 08/19/17 Time of Evaluation: 12:04 - Subjective Subjective: 72 y/o male seen at bedside regarding resolving bilateral leg cellulitis. Patient has a dressing on consisting of xeroform, DSD and montanez been keeping the dressing clean,dry,intact while in the hospital. Patient appears in NAD and denies any pain in his extremities at this time. Patient denies any n/d/f/c at this time. Objective - Vital Signs/Intake and Output Vital Signs (last 24 hours): Temp Pulse Resp BP Pulse Ox 97.6 F 95 H 20 115/71 97 08/19/17 08:27 08/19/17 08:27 08/19/17 08:27 08/19/17 11:26 08/19/17 08:27 Intake and Output: 08/19/17 08/19/17 06:59 18:59 Intake Total 740 Output Total 550 Balance 190 - Medications Medications: Current Medications Acetaminophen (Tylenol 650 Mg Supp) 650 mg [place] Q6 PRN PRN Reason: Temperature Digoxin (Lanoxin) 0.25 mg PO DAILY@1800 [facility] Last Admin: 08/18/17 17:23 Dose: 0.25 mg Enoxaparin Sodium (Lovenox) 60 mg SC Q12 [facility] Last Admin: 08/19/17 11:25 Dose: 60 mg Imipenem/Cilastatin Sodium 500 (mg/ Dextrose) 100 mls @ 100 mls/hr IVPB Q8 [facility] Last Admin: 08/19/17 05:33 Dose: 100 mls/hr Insulin Human Regular (Novolin R) 0 unit SC ACHS [facility] PRN Reason: Protocol Last Admin: 08/19/17 08:29 Dose: Not Given Metoprolol Tartrate (Lopressor) 25 mg PO BID [facility] Last Admin: 08/19/17 11:26 Dose: 25 mg Metronidazole (Flagyl) 250 mg PO Q8H [facility] Last Admin: 08/19/17 08:56 Dose: 250 mg Pantoprazole Sodium (Protonix Ec Tab) 40 mg PO DAILY [facility] Last Admin: 08/19/17 11:26 Dose: 40 mg Saccharomyces Boulardii (Florastor) 250 mg PO TID [facility] Last Admin: 08/19/17 11:26 Dose: 250 mg - Labs Labs: 08/19/17 07:41 08/19/17 07:41 PT 11.9 SECONDS (9.7-12.2) 08/10/17 05:54 INR 1.1 08/10/17 05:54 APTT 24 SECONDS (21-34) 08/10/17 05:54 - Constitutional Appears: Well, Non-toxic, No Acute Distress - Extremities Exam Additional comments: Vasc: palpable DP pulses, lightly palpable PT pulses b/l, TG wnl, CFT < 3 sec to all digits neuro: grossly diminished derm: mild edema and erythema noted to bilateral legs extending from ankles to just distal tibial tuberosity, superficial ulcerations with mild scabbing lesions noted on anterior shins, no purulence,no active drainage or bleeding, no malodor, no fluctuance ortho: no pain on palpation of legs b/l - Neurological Exam Neurological Exam: Alert, Awake, Oriented x3 - Psychiatric Exam Psychiatric exam: Normal Affect, Normal Mood Assessment and Plan - Assessment and Plan (Free Text) Assessment: 72 y/o male seen at bedside for bilateral leg cellulitis that is resolving Plan: patient evaluated and chart reviewed discussed in detail with attending Dr. Minor labs and vitals reviewed; WBC 10.8, afebrile continue IV abx as per ID applied xeroform, DSD to bilateral lower extremities, continue to keep dressing clean,dry,intact patient instructed to follow up with Dr. oT as outpatient podiatry will continue to monitor while patient remains in house <Jassi Minor - Last Filed: 08/19/17 13:25> Objective - Vital Signs/Intake and Output Vital Signs (last 24 hours): Temp Pulse Resp BP Pulse Ox 97.6 F 95 H 20 115/71 97 08/19/17 08:27 08/19/17 08:27 08/19/17 08:27 08/19/17 11:26 08/19/17 08:27 Intake and Output: 08/19/17 08/19/17 06:59 18:59 Intake Total 740 Output Total 550 Balance 190 - Medications Medications: Current Medications Acetaminophen (Tylenol 650 Mg Supp) 650 mg NE Q6 PRN PRN Reason: Temperature Digoxin (Lanoxin) 0.25 mg PO DAILY@1800 [facility] Last Admin: 08/18/17 17:23 Dose: 0.25 mg Enoxaparin Sodium (Lovenox) 60 mg SC Q12 [facility] Last Admin: 08/19/17 11:25 Dose: 60 mg Imipenem/Cilastatin Sodium 500 (mg/ Dextrose) 100 mls @ 100 mls/hr IVPB Q8 [facility] Last Admin: 08/19/17 05:33 Dose: 100 mls/hr Insulin Human Regular (Novolin R) 0 unit SC ACHS [facility] PRN Reason: Protocol Last Admin: 08/19/17 13:07 Dose: 1 unit Metoprolol Tartrate (Lopressor) 25 mg PO BID [facility] Last Admin: 08/19/17 11:26 Dose: 25 mg Metronidazole (Flagyl) 250 mg PO Q8H [facility] Last Admin: 08/19/17 08:56 Dose: 250 mg Pantoprazole Sodium (Protonix Ec Tab) 40 mg PO DAILY [facility] Last Admin: 08/19/17 11:26 Dose: 40 mg Saccharomyces Boulardii (Florastor) 250 mg PO TID [facility] Last Admin: 08/19/17 13:06 Dose: 250 mg - Labs Labs: 08/19/17 07:41 08/19/17 07:41 PT 11.9 SECONDS (9.7-12.2) 08/10/17 05:54 INR 1.1 08/10/17 05:54 APTT 24 SECONDS (21-34) 08/10/17 05:54 Attending/Attestation - Attestation I have personally seen and examined this patient.: Yes I have fully participated in the care of the patient.: Yes I have reviewed all pertinent clinical information, including history, physical exam and plan: Yes
[2017-08-19] MEDS ORDERED: Potassium Chloride 20 mEq ER Tab PO ONE (13:00)
[2017-08-19] MEDS: Potassium Chloride 20 mEq ER Tab PO ONE ×2 (13:06→14:08)
--- NOTE | 2017-08-19 14:44 | CP.PCM.PN ---
Subjective - Date & Time of Evaluation Date of Evaluation: 08/19/17 Time of Evaluation: 12:35 - Subjective Subjective: PT SEEN AND CLEARED FOR D/C TO [facility]URY TODAY. DISCUSSED WITH PODIATRY RESIDENT, DR. PAIZ, AND LOCAL LEG/WOUND ORDERS OBTAINED; PT TO ALSO F/U WITH DR. SIMPSON IN THE OFFICE NEXT WEEK. DISCUSSED D/C WITH DR. THURSTON AND HE ALSO CLEARED THE PT. PT ALSO CLEARED BY SURGICAL TEAM AND IS TO F/U WITH DR. JEAN IN THE OFFICE IN 1 WEEK. DISCUSSED ABX WITH DR. OLMOS AND PER HIM PT TO CONTINUE ZOSYN 3.375 GM IV Q8 HOURS X14 DAYS (08/20/17 AND LAST DOSE TO BE GIVEN IN ON 09/03/17). STAT ORDER FOR PICC LINE ENTERED AND PT MAY BE D/C AFTER PICC IN INSERTED AND CONFIRMED VIA CXR. DISCUSSED PLAN WITH THE PT AND HE IS IN AGREEMENT. Objective - Vital Signs/Intake and Output Vital Signs (last 24 hours): Temp Pulse Resp BP Pulse Ox 97.6 F 95 H 20 115/71 97 08/19/17 08:27 08/19/17 08:27 08/19/17 08:27 08/19/17 11:26 08/19/17 08:27 Intake and Output: 08/19/17 08/19/17 06:59 18:59 Intake Total 740 Output Total 550 Balance 190 - Medications Medications: Current Medications Acetaminophen (Tylenol 650 Mg Supp) 650 mg [place] Q6 PRN PRN Reason: Temperature Digoxin (Lanoxin) 0.25 mg PO DAILY@1800 [facility] Last Admin: 08/18/17 17:23 Dose: 0.25 mg Enoxaparin Sodium (Lovenox) 60 mg SC Q12 [facility] Last Admin: 08/19/17 11:25 Dose: 60 mg Imipenem/Cilastatin Sodium 500 (mg/ Dextrose) 100 mls @ 100 mls/hr IVPB Q8 [facility] Last Admin: 08/19/17 14:06 Dose: 100 mls/hr Insulin Human Regular (Novolin R) 0 unit SC ACHS [facility] PRN Reason: Protocol Last Admin: 08/19/17 13:07 Dose: 1 unit Metoprolol Tartrate (Lopressor) 25 mg PO BID [facility] Last Admin: 08/19/17 11:26 Dose: 25 mg Metronidazole (Flagyl) 250 mg PO Q8H [facility] Last Admin: 08/19/17 08:56 Dose: 250 mg Pantoprazole Sodium (Protonix Ec Tab) 40 mg PO DAILY [facility] Last Admin: 08/19/17 11:26 Dose: 40 mg Saccharomyces Boulardii (Florastor) 250 mg PO TID [facility] Last Admin: 08/19/17 13:06 Dose: 250 mg - Labs Labs: 08/19/17 07:41 08/19/17 07:41 PT 11.9 SECONDS (9.7-12.2) 08/10/17 05:54 INR 1.1 08/10/17 05:54 APTT 24 SECONDS (21-34) 08/10/17 05:54
[2017-08-19] MEDS ORDERED: Lidocaine 2% Inj (20ml) ONE (15:37)
--- NOTE | 2017-08-19 16:02 | PCM.SURG1 ---
Surgeon's Initial Post Op Note - Surgeon's Notes Surgeon: Duke Sandhu MD Metal Riveter: NONE Type of Anesthesia: Local Pre-Operative Diagnosis: Poor venous access Operative Findings: Patent right brachial vein. Post-Operative Diagnosis: Poor venous access Operation Performed: single lumen picc placement 37 cm via right brachial vein. Tip is in the SVC Specimen/Specimens Removed: none Estimated Blood Loss: EBL {In ML}: 2 Blood Products Given: N/A Drains Used: No Drains Post-Op Condition: Fair Date of Surgery/Procedure: 08/19/17 Time of Surgery/Procedure: 16:00
[2017-08-19] MEDS: Digoxin 250 mcg (0.25 mg) Tab PO SCH (17:44)
[2017-08-19 17:45] VITALS: BP 122/70; PULSE 89
[2017-08-19 19:26] VITALS: PULSE 114; TEMP 98.3
--- NOTE | 2017-08-19 20:45 | CP.PCM.PN ---
Subjective - Date & Time of Evaluation Date of Evaluation: 08/19/17 Time of Evaluation: 18:00 - Subjective Subjective: Patient seen and evaluated No cardiac events noted Denies chest pain and dyspnea Physical Exam - Constitutional Additional comments: - Head Exam Head Exam: NORMOCEPHALIC - Eye Exam Eye Exam: EOMI - ENT Exam Additional comments: ETT in place - Respiratory Exam Respiratory Exam: Clear to Auscultation Bilateral. absent: Respiratory Distress - Cardiovascular Exam Cardiovascular Exam: Tachycardia, Irregular Rhythm, +S1, +S2 - GI/Abdominal Exam GI & Abdominal Exam: Normal Bowel Sounds, Soft Additional comments: dressing clean, dry, intact - Exam Additional comments: borges catheter - Extremities Exam Additional comments: pressure offloading boots bilaterally, legs wrapped in xeroform and gauze - Neurological Exam Additional comments: sedated - Skin Skin Exam: Warm Objective - Vital Signs/Intake and Output Vital Signs (last 24 hours): Temp Pulse Resp BP Pulse Ox 98.3 F 114 H 20 122/70 97 08/19/17 15:00 08/19/17 15:00 08/19/17 15:00 08/19/17 17:45 08/19/17 15:00 - Medications Medications: Current Medications Acetaminophen (Tylenol 650 Mg Supp) 650 mg [place] Q6 PRN PRN Reason: Temperature Digoxin (Lanoxin) 0.25 mg PO DAILY@1800 [facility] Last Admin: 08/19/17 17:44 Dose: 0.25 mg Enoxaparin Sodium (Lovenox) 60 mg SC Q12 [facility] Last Admin: 08/19/17 11:25 Dose: 60 mg Imipenem/Cilastatin Sodium 500 (mg/ Dextrose) 100 mls @ 100 mls/hr IVPB Q8 [facility] Last Admin: 08/19/17 14:06 Dose: 100 mls/hr Insulin Human Regular (Novolin R) 0 unit SC ACHS [facility] PRN Reason: Protocol Last Admin: 08/19/17 16:30 Dose: Not Given Metoprolol Tartrate (Lopressor) 25 mg PO BID [facility] Last Admin: 08/19/17 17:45 Dose: 25 mg Metronidazole (Flagyl) 250 mg PO Q8H [facility] Last Admin: 08/19/17 17:43 Dose: 250 mg Pantoprazole Sodium (Protonix Ec Tab) 40 mg PO DAILY [facility] Last Admin: 08/19/17 11:26 Dose: 40 mg Saccharomyces Boulardii (Florastor) 250 mg PO TID [facility] Last Admin: 08/19/17 17:44 Dose: 250 mg - Labs Labs: 08/19/17 07:41 08/19/17 07:41 PT 11.9 SECONDS (9.7-12.2) 08/10/17 05:54 INR 1.1 08/10/17 05:54 APTT 24 SECONDS (21-34) 08/10/17 05:54 Assessment and Plan - Assessment and Plan (Free Text) Assessment: (1) Chronic kidney disease, stage III (moderate) Status: Acute (2) Hypertensive chronic kidney disease with stage 1 through stage 4 chronic kidney disease, or unspecified chronic kidney disease Status: Acute (3) Atrial fibrillation, new onset Status: Acute (4) Hyponatremia with excess extracellular fluid volume Status: Acute (5) Cellulitis Status: Acute (6) SBO (small bowel obstruction) Status: Acute (7) Infected skin ulcer limited to breakdown of skin Status: Acute (8) Metabolic acidemia Status: Acute
--- NOTE | 2017-08-30 12:22 | US ---
Date of procedure: 08/19/2017 Procedure: Ultrasound guidance for vascular access HISTORY: Infection requiring long-term IV antibiotics TECHNIQUE: Following informed consent and procedure time-out, the patient placed supine on the interventional table and the right arm prepped and draped in the usual sterile fashion. Ultrasound showed a patent and compressible basilic vein. After the skin was anesthetized with lidocaine, the basilic vein was accessed with micro micropuncture technique using ultrasound guidance. An image documenting ultrasound guidance for vascular access was permanently saved. IMPRESSION: Ultrasound guidance for vascular access for placement of PICC.
--- NOTE | 2017-08-30 12:22 | RAD ---
PROCEDURE: Date of procedure: 08/19/2017 Procedure: 1. Placement of a right arm PICC with ultrasound and fluoroscopic guidance, CPT 39621 2. PICC tip confirmation with spot radiograph and is in the superior vena cava Medications: 1 percent lidocaine Total Fluoro time: 5.9 seconds Radiation: 2.75 MGy EBL: 2 cc HISTORY: Infection requiring long-term IV antibiotics TECHNIQUE: Following informed consent and procedure time-out, the patient was placed supine on the interventional table and the right arm prepped and draped in the usual sterile fashion. Ultrasound showed a patent and compressible right basilic vein. After the skin was anesthetized with lidocaine, the basilic vein was accessed with micro micropuncture technique using ultrasound guidance. A guidewire was then advanced under fluoroscopic guidance into the superior vena cava. An image documenting ultrasound guidance for vascular access was permanently saved. The length of the single-lumen 4 [place] PICC was trimmed to 37 centimeters and advanced through a peel-away sheath. The PICC was position with tip of PICC confirm a spot radiograph the superior vena cava. The PICC was secured to the patient's skin. The PICC was flushed. A biopatch and sterile dressing was applied. IMPRESSION: Placement of a single-lumen 4 [place] PICC trimmed to 37 centimeters via right basilic vein. The tip of the PICC is confirmed with spot radiograph and is in the superior vena cava.
--- NOTE | 2017-08-31 21:53 | CP.PCM.DIS ---
Provider - Provider Date of Admission: 08/10/17 07:26 Attending physician: Bishop Lr MD Time Spent in preparation of Discharge (in minutes): 45 Hospital Course - Lab Results Lab Results: Micro Results 08/15/17 20:00 Naris MRSA Culture - Final MRSA NOT DETECTED 08/10/17 06:15 Blood Blood Culture - Final NO GROWTH AFTER 5 DAYS 08/10/17 06:15 Blood Gram Stain - Final TEST NOT PERFORMED 08/10/17 05:45 Blood Blood Culture - Final NO GROWTH AFTER 5 DAYS 08/10/17 05:45 Blood Gram Stain - Final TEST NOT PERFORMED 08/10/17 09:00 Leg - Left Gram Stain - Final 08/10/17 09:00 Leg - Left Wound Culture - Final Proteus Penneri Beta Hemolytic Strep Group B Pseudomonas Aeruginosa Raoultella Ornithinolytica 08/10/17 08:00 Trachasp Gram Stain - Final 08/10/17 08:00 Trachasp Sputum Culture - Final No growth. 08/10/17 08:00 Urine,Catheterized Urine Culture - Final Yeast Species 08/10/17 11:30 Naris MRSA Culture (Admit) - Final MRSA NOT DETECTED Most Recent Lab Values WBC 10.8 K/uL (4.8-10.8) 08/19/17 07:41 RBC 3.58 Mil/uL (4.40-5.90) L 08/19/17 07:41 Hgb 11.3 g/dL (12.0-18.0) L 08/19/17 07:41 Hct 33.3 % (35.0-51.0) L 08/19/17 07:41 MCV 93.2 fL (80.0-94.0) 08/19/17 07:41 MCH 31.6 pg (27.0-31.0) H 08/19/17 07:41 MCHC 33.9 g/dL (33.0-37.0) 08/19/17 07:41 RDW 14.2 % (11.5-14.5) 08/19/17 07:41 Plt Count 166 K/uL (130-400) 08/19/17 07:41 MPV 9.3 fL (7.2-11.7) 08/19/17 07:41 Neut % (Auto) 80.7 % (50.0-75.0) H 08/17/17 07:56 Lymph % (Auto) 9.2 % (20.0-40.0) L 08/17/17 07:56 [place] % (Auto) 6.9 % (0.0-10.0) 08/17/17 07:56 Eos % (Auto) 2.7 % (0.0-4.0) 08/17/17 07:56 Baso % (Auto) 0.5 % (0.0-2.0) 08/17/17 07:56 Neut # 10.4 K/uL (1.8-7.0) H 08/17/17 07:56 Lymph # 1.2 K/uL (1.0-4.3) 08/17/17 07:56 [place] # 0.9 K/uL (0.0-0.8) H 08/17/17 07:56 Eos # 0.3 K/uL (0.0-0.7) 08/17/17 07:56 Baso # 0.1 K/uL (0.0-0.2) 08/17/17 07:56 Neutrophils % (Manual) 82 % (50-75) H 08/17/17 07:56 Band Neutrophils % 2 % (0-2) 08/16/17 11:30 Lymphocytes % (Manual) 7 % (20-40) L 08/17/17 07:56 Monocytes % (Manual) 9 % (0-10) 08/17/17 07:56 Eosinophils % (Manual) 2 % (0-4) 08/17/17 07:56 Platelet Estimate Normal (NORMAL) 08/17/17 07:56 Plt Clumps, EDTA Present 08/10/17 05:54 RBC Morphology Normal 08/17/17 07:56 Hypochromasia (manual) Slight 08/12/17 06:39 Poikilocytosis (manual Slight 08/14/17 06:45 Anisocytosis (manual) Slight 08/14/17 06:45 Target Cells Slight 08/12/17 06:39 Ovalocytes Slight 08/14/17 06:45 PT 11.9 SECONDS (9.7-12.2) 08/10/17 05:54 INR 1.1 08/10/17 05:54 APTT 24 SECONDS (21-34) 08/10/17 05:54 Puncture Site Rba 08/12/17 18:10 pCO2 34 mm/Hg (35-45) L 08/12/17 18:10 pO2 112 mm/Hg (80-100) H 08/12/17 18:10 HCO3 22.9 mmol/L (21-28) 08/12/17 18:10 ABG pH 7.41 (7.35-7.45) 08/12/17 18:10 ABG Total CO2 22.6 mmol/L (22-28) 08/12/17 18:10 ABG O2 Saturation 99.1 % (95-98) H 08/12/17 18:10 ABG Base Excess -2.6 mmol/L (-2.0-3.0) L 08/12/17 18:10 ABG Hemoglobin 10.2 g/dL (11.7-17.4) L 08/12/17 18:10 ABG Carboxyhemoglobin 1.4 % (0.5-1.5) 08/12/17 18:10 POC ABG HHb (Measured) 0.9 % (0.0-5.0) 08/12/17 18:10 ABG Methemoglobin 1.3 % (0.0-3.0) 08/12/17 18:10 [place] Test Pos 08/12/17 18:10 ABG Potassium 3.8 mmol/L (3.6-5.2) 08/12/17 05:10 VBG pH 7.34 (7.32-7.43) 08/10/17 08:29 VBG pCO2 49 mmHg (40-60) 08/10/17 08:29 VBG HCO3 23.1 mmol/L 08/10/17 08:29 VBG Total CO2 27.9 mmol/L (22-28) 08/10/17 08:29 VBG O2 Sat (Calc) 37.3 % (40-65) L 08/10/17 08:29 VBG Base Excess 0.0 mmol/L (0.0-2.0) 08/10/17 08:29 VBG Potassium 5.0 mmol/L (3.6-5.2) 08/10/17 08:29 A-a O2 Difference 131.0 mm/Hg 08/12/17 18:10 Respiratory Index 1.2 08/12/17 18:10 Hgb O2 Saturation 96.4 % (95.0-98.0) 08/12/17 18:10 Sodium 140.0 mmol/l (132-148) 08/12/17 05:10 Chloride 112.0 mmol/L (98-107) H 08/12/17 05:10 Glucose 109 mg/dl (75-110) 08/12/17 05:10 Lactate 0.7 mmol/L (0.7-2.1) 08/12/17 05:10 Vent Mode Bipap 08/12/17 18:10 Mechanical Rate 20 08/12/17 05:10 FiO2 40.0 % 08/12/17 18:10 Tidal Volume 500 08/12/17 05:10 PEEP 5 08/12/17 05:10 Pressure Support 10 08/11/17 13:30 CPAP 5 08/11/17 13:30 Inspiratory BiPAP 12 08/12/17 18:10 Expiratory BiPAP 6 08/12/17 18:10 Crit Value Called To Dr adrian 08/11/17 13:30 Crit Value Called By Mane vivar beauty culturist 08/11/17 13:30 Crit Value Read Back Y 08/11/17 13:30 Blood Gas Notified Time 1345 08/11/17 13:30 Sodium 131 mmol/L (132-148) L 08/19/17 07:41 Potassium 3.5 mmol/L (3.6-5.2) L 08/19/17 07:41 Chloride 101 mmol/L (98-107) 08/19/17 07:41 Carbon Dioxide 22 mmol/L (22-30) 08/19/17 07:41 Anion Gap 11 (10-20) 08/19/17 07:41 BUN 14 mg/dL (9-20) 08/19/17 07:41 Creatinine 0.9 mg/dL (0.8-1.5) 08/19/17 07:41 Est GFR ( Amer) > 60 08/19/17 07:41 Est GFR (Non-Af Amer) > 60 08/19/17 07:41 POC Glucose (mg/dL) 133 mg/dL (65-110) H 08/19/17 17:21 Random Glucose 119 mg/dL (75-110) H 08/19/17 07:41 Hemoglobin A1c 7.2 % (4.2-6.5) H 08/11/17 17:59 Serum Osmolality 285 mosm/kg (272-300) 08/18/17 08:20 Uric Acid 3.1 mg/dL (3.5-8.5) L 08/18/17 08:20 Calcium 7.4 mg/dl (8.6-10.4) L 08/19/17 07:41 Phosphorus 2.2 mg/dL (2.5-4.5) L 08/16/17 11:30 Magnesium 1.6 mg/dL (1.6-2.3) 08/17/17 07:56 Total Bilirubin 0.9 mg/dL (0.2-1.3) 08/19/17 07:41 AST 22 U/L (17-59) 08/19/17 07:41 ALT 83 U/L (21-72) H D 08/19/17 07:41 Alkaline Phosphatase 74 U/L (38-126) 08/19/17 07:41 Total Creatine Kinase 63 U/L (55-170) 08/12/17 06:39 CK-MB (Mass) 0.97 ng/mL (0.0-3.38) 08/12/17 06:39 Troponin I, Quant 0.0320 ng/mL (0.00-0.120) 08/12/17 06:39 Total Protein 4.7 g/dL (6.3-8.3) L 08/19/17 07:41 Albumin 2.6 g/dL (3.5-5.0) L 08/19/17 07:41 Globulin 2.1 gm/dL (2.2-3.9) L 08/19/17 07:41 Albumin/Globulin Ratio 1.2 (1.0-2.1) 08/19/17 07:41 Lipase 246 U/L (23-300) 08/10/17 22:46 Procalcitonin 0.36 NG/ML (0.19-0.49) 08/10/17 15:43 TSH 3rd Generation 1.28 mIU/L (0.46-4.68) 08/11/17 17:59 Arterial Blood Potassium 3.8 mmol/L (3.6-5.2) 08/12/17 05:10 Venous Blood Potassium 5.0 mmol/L (3.6-5.2) 08/10/17 08:29 Urine Color Yellow (YELLOW) 08/11/17 15:25 Urine Clarity Hazy (Clear) 08/11/17 15:25 Urine pH 5.0 (5.0-8.0) 08/11/17 15:25 Ur Specific [place] 1.020 (1.003-1.030) 08/11/17 15:25 Urine Protein Negative mg/dL (NEGATIVE) 08/11/17 15:25 Urine Glucose (UA) Normal mg/dL (Normal) 08/11/17 15:25 Urine Ketones Negative mg/dL (NEGATIVE) 08/11/17 15:25 Urine Blood 2+ (NEGATIVE) H 08/11/17 15:25 Urine Nitrate Negative (NEGATIVE) 08/11/17 15:25 Urine Bilirubin Negative (NEGATIVE) 08/11/17 15:25 Urine Urobilinogen Normal mg/dL (0.2-1.0) 08/11/17 15:25 Ur Leukocyte Esterase 3+ Grady/uL (Negative) H 08/11/17 15:25 Urine WBC (Auto) 31 /hpf (0-5) H 08/11/17 15:25 Urine RBC (Auto) 13 /hpf (0-3) H 08/11/17 15:25 Ur Squamous Epith Cells < 1 /hpf (0-5) 08/11/17 15:25 Uric Acid Crystals Rare /hpf (<OCC) 08/11/17 15:25 Urine Bacteria Rare (<OCC) 08/11/17 15:25 Urine Osmolality 624 mosm/kg (300-1000) 08/18/17 23:03 U Random Total Protein 28.0 mg/dL (0.0-12.0) H 08/11/17 15:30 Ur Random Sodium 34 mmol/L 08/18/17 23:03 Urine Chloride 69 mmol/L (32-290) 08/11/17 08:13 C. difficile Ag & Toxin Negative (NEGATIVE) 08/18/17 08:30 Blood Type A POSITIVE 08/10/17 19:09 Antibody Screen Negative 08/10/17 19:09 - Hospital Course Hospital Course: Chief complaint: Abdominal pain History of present illness: 72-year-old male with a history of arthritis, history of colon polyp, kidney stones, renal insufficiency came to the emergency room with 1 week of abdominal pain, and episodes of vomiting, got worse recently, yesterday started having bilious vomiting. He did not have any BM at least one week. But increasing abdominal pain also noted, associated with the abdomen or distention. He did not have any fever, chills. No bleeding. He denied any chest pain or shortness of breath. No difficulty in urination. he is not feeling well for at least one week. Patient is currently intubated in the intensive care unit following the surgery Past medical history: Arthritis, history of colon polyps, kidney stones, renal insufficiency. Past surgical history: Partial colectomy Surgical history nonsmoker and nonalcoholic Allergies allergic to cefdinir. Current medications none History was taken from the chart Review of system: Patient is currently intubated. On ventilator. Postoperative. Agitated. We will be getting the sedation, and pain medications. On examination: Temp Pulse Resp BP Pulse Ox 98.6 F 131 H 21 87/51 L 95 08/10/17 16:00 08/10/17 12:30 08/10/17 12:30 08/10/17 12:29 08/10/17 12:30 Vital signs, tachycardia noted, tachypnea noted. Chest good air entry bilaterally. Tachycardia with irregular heart sounds noted Abdomen postoperative Extremities no pedal edema Patient has a Wlal catheter. Patient also has a intubation on ventilator. NG tube in suction Patient's labs revealed Sodium 125, BUN 83, creatinine is 2.2 Lipase [id number]. Normal. proCalcitonin level noted. Phosphorus is also elevated Chest x-ray nonspecific. CAT scan of the abdomen showing evidence of incarcerated umbilical hernia and associated with a small bowel obstruction. Unremarkable pancreas, and a mildly distended gallbladder. Adrenal nodule noted Kidney cyst noted Assessment and recommendation: 72-year-old male with a history of arthritis, history of colon polyp, renal stones, renal insufficiency, renal cyst. Now admitted with recurrent abdominal pain, abdominal distention, and vomiting, associated with a possible incarcerated ventral hernia, and small bowel obstruction. Patient underwent surgical intervention today, currently on ventilator. Patient also has evidence of elevated lipase, possibly secondary to dehydration , likely dehydration causing pancreatitis. Electrolyte imbalance. Elevated white count. Associated sepsis cannot be ruled out, Patient also has a atrial fibrillation with rapid ventricular rate, most likely secondary to overall illness. We will continue with dehydration. Currently on ventilator. Labs ordered now. sedated the patient with propofol and fentanyl drip. DVT and GI prophylaxis. Will extubate the patient wants the clinically stable. Closely monitor the patient in the intensive care unit acute on chronic renal failure will f/u Course in the Hospital: After the surgery patient was intubated. She developed acute renal insufficiency. Patient also atrial fibrillation. He was placed on rate control medication. Slowly condition improved. He developed a dynamic small bowel obstruction. Improved after NG tube suction. Patient tolerated the feeding. Leg cellulitis noted. Podiatry evaluation. Patient needed long-term IV antibiotic. Patient had a PICC line catheter. Clinically improved. He is being discharged to acute rehabilitation. Patient is stable. Will follow the patient Discharge Exam - Head Exam Head Exam: ATRAUMATIC, NORMOCEPHALIC Discharge Plan - Discharge Medications Prescriptions: Digoxin [Lanoxin] 0.125 mg PO DAILY #1 tab Piperacill/Tazo 3.375gm in Dex [Zosyn 3.375 Gm IV Premix] 3.375 gm IVPB Q8 14 Days bag - Follow Up Plan Condition: SERIOUS Disposition: REHAB FACILITY/REHAB UNIT Instructions: Chronic Kidney Disease (DC), Cellulitis (DC), Renal Failure Diet (GEN), How to Check Your Blood Sugar (DC), Diabetic Foot Care (GEN), Diabetic Hypoglycemia (DC), Diabetes Mellitus Type 2 in Adults (DC) Additional Instructions: -PLACE UNDER THE SERVICE OF DR. LR WHILE AT [facility] [place]---CALL UPON ARRIVAL TO FACILITY FOR BED ASSIGNMENT AND ADMITTING ORDERS. -PLEASE ARRANGE FOR MR. GURROLA TO FOLLOW UP WITH DR. CEJA (SURGEON) IN THE OFFICE IN 1 WEEK (BY 08/26/17). -PER SURGICAL TEAM: Encourage ambulation and incentive spirometer use; Follow up with Dr. Ceja in 1 week for staple removal. -PER DR. VALDEZ (ID) CONTINUE THE FOLLOWING ANTIBIOTIC REGIMEN: ZOSYN 3.375 GM IV Q8 HOURS X2 WEEKS (START ON 08/20/17 AND LAST DOSE TO BE GIVEN ON 09/03/17). -PLEASE ARRANGE FOR MR. GURROLA TO FOLLOW UP WITH DR. SIMPSON IN THE OFFICE IN 1 WEEK (BY 08/26/17). -PER PODIATRY TEAM CONTINUE THE FOLLOWING LOCAL WOUND CARE: CLEAN BOTH LEGS WITH NORMAL SALINE, APPLY XEROFORM AND DRY/STERILE DRESSING DAILY AND PRN SOILED. -PICC LINE CARE PER FACILITY PROTOCOL. -PHYSICAL THERAPY TOLERATED. -FALL PRECAUTIONS. -FOR FURTHER ORDERS OR QUESTIONS, CONTACT DR. LR'S OFFICE. Referrals: Porter Ceja MD [Staff Provider] - Troy Henriquez MD [Staff Provider] - Keven Luna MD [Staff Provider] - Tang Simpson DPM [Staff Provider] - Westley Valdez MD [Staff Provider] - Bishop Lr MD [Staff Provider] - Jassi Minor DPM [Staff Provider] -
== END 2017-08-19 20:48 | DRG 853 ==
LOC: C.ER 04:47 → C.9I 07:26 → C.5S 08-15 17:21
PROVIDERS: ADMIT Internal Medicine; ATTEND Internal Medicine
PROC: 0WQF0ZZ Repair Abdominal Wall, Open Approach (ICD-10-PCS; principal; 2017-08-10 12:45)
PROC: 0DN80ZZ Release Small Intestine, Open Approach (ICD-10-PCS; 2017-08-10 12:45)
DX: A41.9 Sepsis, unspecified organism (principal); J69.0 Pneumonitis due to inhalation of food and vomit; J95.821 Acute postprocedural respiratory failure; E87.4 Mixed disorder of acid-base balance; K56.50 Intestinal adhesions [bands], unspecified as to partial versus complete obstruction; N17.9 Acute kidney failure, unspecified; N18.4 Chronic kidney disease, stage 4 (severe); I13.0 Hypertensive heart and chronic kidney disease with heart failure and stage 1 through stage 4 chronic kidney disease, or unspecified chronic kidney disease; I48.91 Unspecified atrial fibrillation; I50.9 Heart failure, unspecified; K43.6 Other and unspecified ventral hernia with obstruction, without gangrene; I47.1 Supraventricular tachycardia; E87.1 Hypo-osmolality and hyponatremia; K42.0 Umbilical hernia with obstruction, without gangrene; L03.116 Cellulitis of left lower limb; L03.115 Cellulitis of right lower limb; E11.22 Type 2 diabetes mellitus with diabetic chronic kidney disease; E11.622 Type 2 diabetes mellitus with other skin ulcer; B35.1 Tinea unguium; E11.65 Type 2 diabetes mellitus with hyperglycemia; E87.8 Other disorders of electrolyte and fluid balance, not elsewhere classified; E86.0 Dehydration; E87.5 Hyperkalemia; E87.6 Hypokalemia; L98.491 Non-pressure chronic ulcer of skin of other sites limited to breakdown of skin; N40.0 Benign prostatic hyperplasia without lower urinary tract symptoms; Z79.899 Other long term (current) drug therapy; Z86.010 Personal history of colon polyps; Z87.442 Personal history of urinary calculi; Z87.891 Personal history of nicotine dependence

== ENCOUNTER 2017-10-02 11:48 | Emergency (ER) | payer MEDICARE ==
[2017-10-02 11:49] VITALS: PULSE 89; BMI 37.5
[2017-10-02 11:59] VITALS: O2SAT 99
[2017-10-02 12:49] LABS: BASO # 0.1 K/uL (0.0-0.2); EOS # 0.2 K/uL (0.0-0.7); EOS % 2.2 % (0.0-4.0); HEMATOCRIT 32.2 % (35.0-51.0); LYMPH # 1.4 K/uL (1.0-4.3); LYMPH % 12.9 % (20.0-40.0); MEAN CELL VOLUME 93.3 fL (80.0-94.0); MEAN CORPUSCULAR HEMOGLOBIN 31.6 pg (27.0-31.0); MEAN CORPUSCULAR HGB CONC 33.9 g/dL (33.0-37.0); MEAN PLATELET VOLUME 8.7 fL (7.2-11.7); MONO # 0.6 K/uL (0.0-0.8); MONO % 5.5 % (0.0-10.0); WHITE BLOOD COUNT 11.1 K/uL (4.8-10.8)
[2017-10-02 13:02] LABS: ALB/GLOB RATIO 1.2 (1.0-2.1); BILIRUBIN,TOTAL 0.7 mg/dL (0.2-1.3); CALCIUM 6.9 mg/dl (8.6-10.4); GFR AFRICAN-AMERICAN > 60; GLUCOSE,RANDOM 142 mg/dL (75-110); TOTAL PROTEIN 6.5 g/dL (6.3-8.3)
[2017-10-02] MEDS ORDERED: Sodium Bicarbonate (8.4%) 50 Meq Syringe ONE (13:03)
[2017-10-02 13:04] LABS: ALKALINE PHOSPHATASE 55 U/L (38-126); ALT/SGPT 19 U/L (21-72); AST/SGOT 16 U/L (17-59); BLOOD UREA NITROGEN 18 mg/dL (9-20); CARBON DIOXIDE 21 mmol/L (22-30); CHLORIDE 105 mmol/L (98-107); POTASSIUM 3.2 mmol/L (3.6-5.2); SODIUM 134 mmol/L (132-148)
[2017-10-02 14:03] LABS: INR 1.1
--- NOTE | 2017-10-02 14:13 | RAD ---
PROCEDURE: CHEST RADIOGRAPH, 1 VIEW HISTORY: SOB COMPARISON: 08/13/2017 FINDINGS: LUNGS: There are low lung volumes. No focal consolidation. PLEURA: No pneumothorax or pleural fluid seen. CARDIOVASCULAR: Normal. OSSEOUS STRUCTURES: No significant abnormalities. VISUALIZED UPPER ABDOMEN: Normal. OTHER FINDINGS: None. IMPRESSION: No active pulmonary disease.Low lung volumes may be related to poor inspiratory effort.
--- NOTE | 2017-10-02 14:42 | C.PDOC ---
History Of Present Illness 72 year old male sent to ED by PMD for evaluation of chronic bilateral lower leg wound dressing change. Pt states he has not changed dressing for over 2 weeks, states that his visiting nurse didn't come for 2 weeks. Note pt was given Rx of Eliquis BID for atrial fibrillation but has not filled it up yet. Denies change in sensation, extremity weakness, numbness, chest pain, shortness of breath, cough, or fever. Time Seen by Provider: 10/02/17 11:59 Chief Complaint (Nursing): Abnormal Skin Integrity History Per: Patient History/Exam Limitations: no limitations Onset/Duration Of Symptoms: Days Current Symptoms Are (Timing): Still Present Recent travel outside of the [place]: No Additional History Per: Patient Past Medical History Reviewed: Historical Data, Nursing Documentation, Vital Signs Vital Signs: Last Vital Signs Temp 97.9 F 10/02/17 11:52 Pulse 90 10/02/17 11:52 Resp 16 10/02/17 11:52 BP 128/66 10/02/17 11:52 Pulse Ox 99 10/02/17 15:00 - Medical History PMH: Arthritis (FINGERS), Colonic Polyps (large removed surgically), Fractures ( left leg as toddler), Kidney Stones, Peripheral Edema, Chronic Kidney Disease - [facility] Procedures INSERTION OF INFUSION DEV INTO SUP VENA CAVA, PERC APPROACH (04/01/17) RELEASE SMALL INTESTINE, OPEN APPROACH (08/10/17) REPAIR ABDOMINAL WALL, OPEN APPROACH (08/10/17) Family History: States: Unknown Family Hx - Social History Hx Tobacco Use: Yes Hx Alcohol Use: No Hx Substance Use: No - Immunization History Hx Tetanus Toxoid Vaccination: No Hx Influenza Vaccination: No Hx Pneumococcal Vaccination: No Review Of Systems Except As Marked, All Systems Reviewed And Found Negative. Constitutional: Negative for: Fever, Chills Cardiovascular: Negative for: Chest Pain, Orthopnea Respiratory: Negative for: Cough, Shortness of Breath Gastrointestinal: Negative for: Nausea, Vomiting, Abdominal Pain Skin: Positive for: Other (chronic lower leg wounds) Neurological: Negative for: Weakness, Numbness, Headache Physical Exam - Physical Exam Appears: Non-toxic, No Acute Distress, Other (morbidly obese) Skin: Warm, Dry, Other (erythematous bilateral lower extremities from shins to ankle, superficial macerated tissue without open wounds, foul smelling) Head: Atraumatic, Normacephalic Eye(s): bilateral: Normal Inspection Oral Mucosa: Moist Neck: Supple Chest: Symmetrical Cardiovascular: Rhythm Regular Respiratory: Normal Breath Sounds, No Rales, No Rhonchi, No Wheezing Gastrointestinal/Abdominal: Soft, No Tenderness Extremity: Normal ROM, No Calf Tenderness, Capillary Refill (less than 2 seconds ), No Deformity, No Swelling Pulses: Left Dorsalis Pedis: Normal, Right Dorsalis Pedis: Normal Neurological/Psych: Oriented x3, Normal Speech, Normal Motor, Normal Sensation ED Course And Treatment - Laboratory Results Result Diagrams: 10/02/17 12:45 12 12:45 Lab Interpretation: Abnormal (mild leukocytosis, mild elev D-dimer) ECG: Interpreted By La ECG Rhythm: Atrial Fibrillation ECG Interpretation: Normal, No Acute Changes Rate From EC O2 Sat by Pulse Oximetry: 99 - Radiology CXR: Interpreted by La CXR Interpretation: Yes: No Acute Disease - CT Scan/US b/l leg venous doppler Other Rad Studies (CT/US): Radiology Report Reviewed (no DVT b/l legs.) Progress Note: b/l leg dressings taken down and changed. Reevaluation Time: 14:42 Reassessment Condition: Improved - Physician Consult Information Outcome Of Conversation: 1430: d/w Dr. Gupta- PMD, @ bedside- pt with Elequis Rx @ home to fill in 2 days. Pending RES HABILITATION ASSISTANT in 2 days @ home. ADM deferred, ok to d/ c no new Rx's. Medical Decision Making Medical Decision Making: mild elev d-dimer prob related to chronic mild infected legs and body habitus, venous dopplers neg for DVT's no abx for mild superficial skin infections- more macerated and irritated than infected at this time. Disposition Doctor Will See Patient In The: Office Counseled Patient/Family Regarding: Studies Performed, Diagnosis - Disposition Referrals: Bishop Morales MD [Family Provider] - Disposition: HOME/ ROUTINE Disposition Time: 14:45 Condition: GOOD Additional Instructions: FOLLOW-UP with Dr. Gupta in 2 days: Home Health Attendant: should be changing your leg wound dressings at least every other day. Atrial Fibrillation: Continue Elaquis 5 mg twice a day (8AM and 4PM) with the Rx you have @ home. Instructions: Chronic Wound Care (ED) Forms: [facility] (French) - Clinical Impression Clinical Impression: Infected skin ulcer limited to breakdown of skin, Atrial fibrillation - Scribe Statement The provider has reviewed the documentation as recorded by the Scribe Beau Pollack All medical record entries made by the Scribe were at my direction and personally dictated by me. I have reviewed the chart and agree that the record accurately reflects my personal performance of the history, physical exam, medical decision making, and the department course for this patient. I have also personally directed, reviewed, and agree with the discharge instructions and disposition.
[2017-10-02 15:02] VITALS: BP 130/68; PULSE 92; RESP 20; TEMP 98
--- NOTE | 2017-10-04 11:08 | VASCLAB ---
PROCEDURE: Lower Extremity Venous Duplex Exam. HISTORY: chronic leg edema, ? DVT PRIORS: None. TECHNIQUE: Bilateral common femoral, femoral, popliteal and posterior tibial, peroneal and great saphenous veins were evaluated. Flow was assessed with color Doppler, compressibility, assessment of phasic flow and augmentation response. Report prepared by YANCI Mohan, RVT FINDINGS: RIGHT: 1. Common Femoral Vein: 1.1. Compressibility - Fully compressible: Thrombus - None : Flow - Phasic: Augmentation -Normal: Reflux - None. 2. Femoral Vein: 2.1. Compressibility - Fully compressible: Thrombus - None : Flow - Phasic: Augmentation -Normal: Reflux - None. 3. Popliteal Vein: 3.1. Compressibility - Fully compressible: Thrombus - None : Flow - Phasic: Augmentation -Normal: Reflux - None. 4. Posterior Tibial Vein: 4.1. Compressibility - : Thrombus - : Flow - : Augmentation -l: Reflux - . 5. Peroneal Vein: 5.1. Compressibility - : Thrombus - : Flow - : Augmentation -: Reflux - . 6. Great Saphenous Vein: 6.1. Compressibility - Fully compressible: Thrombus - None: Flow - Phasic: Augmentation - Normal: Reflux - None. LEFT: 1. Common Femoral Vein: 1.1. Compressibility - Fully compressible: Thrombus - None: Flow - Phasic: Augmentation -Normal: Reflux - None. 2. Femoral Vein: 2.1. Compressibility - Fully compressible: Thrombus - None: Flow - Phasic: Augmentation -Normal: Reflux - None. 3. Popliteal Vein: 3.1. Compressibility - Fully compressible: Thrombus - None : Flow - Phasic: Augmentation -Normal: Reflux - None. 4. Posterior Tibial Vein: 4.1. Compressibility - : Thrombus - : Flow - : Augmentation -: Reflux - . 5. Peroneal Vein: 5.1. Compressibility - : Thrombus - : Flow - : Augmentation -: Reflux - . 6. Great Saphenous Vein: 6.1. Compressibility - Fully compressible: Thrombus - None: Flow - Phasic: Augmentation - Normal: Reflux - None. OTHER FINDINGS: Due to bandages on the calf, bilateral peroneal and posterior tibial vein are not visualized. IMPRESSION: Right: No evidence of deep or superficial vein thrombosis of the right lower extremity. Normal valve function noted of the right side. Left: No evidence of deep or superficial vein thrombosis of the left lower extremity. Normal valve function noted of the left side.
--- NOTE | 2017-10-05 09:40 | CARD ---
APPROVED REPORT EKG Measurement Heart [id number] <Conclusion> Atrial fibrillation Nonspecific ST and T wave abnormality Abnormal ECG
== END 2017-10-02 15:22 | disposition home or self-care (01) ==
LOC: C.ER 11:48
DX: L98.491 Non-pressure chronic ulcer of skin of other sites limited to breakdown of skin (principal); I48.91 Unspecified atrial fibrillation

== ENCOUNTER 2018-04-02 14:59 | Inpatient (IN) | payer MEDICARE ==
[2018-04-02 15:06] VITALS: BMI 38.2
[2018-04-02] MEDS: Sodium Chloride 0.9% 500 ML IV SCH ×2 (15:15→16:24)
[2018-04-02] MEDS ORDERED: Sodium Chloride 0.9% 1,000 ML IV ONE ×4 (15:24→23:12)
--- NOTE | 2018-04-02 15:24 | RAD ---
PROCEDURE: CHEST RADIOGRAPH, 1 VIEW HISTORY: Chest pain COMPARISON: 10/02/2017. FINDINGS: LUNGS: The lungs are clear. PLEURA: No pneumothorax or pleural fluid seen. CARDIOVASCULAR: There is mild cardiomegaly. OSSEOUS STRUCTURES: No significant abnormalities. VISUALIZED UPPER ABDOMEN: Normal. OTHER FINDINGS: None. IMPRESSION: No active pulmonary disease.
--- NOTE | 2018-04-02 15:26 | C.PDOC ---
History Of Present Illness 72 year old male with a history of colon polyps, abdominal surgery, kidney stones, and leg ulcers with edema presents to the emergency department due to altered mental status. Patient has been sick for the past several days, and had 911 called for him yesterday but he refused to go with them. Today, his son came to visit him and found him in an even worse condition so he called 911 to bring him here today. In the ED, the patient has an altered mental status, and is tachypnic. Time Seen by Provider: 04/02/18 15:03 Chief Complaint (Nursing): Altered Mental Status History Per: Patient History/Exam Limitations: None Onset/Duration Of Symptoms: Days Current Symptoms Are (Timing): Still Present Exacerbating Factor(s): Unknown Associated Symptoms: Other (tachypnea) Past Medical History Reviewed: Historical Data, Nursing Documentation, Vital Signs Vital Signs: Last Vital Signs Temp 94 F L 04/02/18 16:05 Pulse 117 H 04/02/18 16:05 Resp 28 H 04/02/18 16:05 BP 91/31 L 04/02/18 16:05 Pulse Ox 98 04/02/18 16:25 - Medical History PMH: Arthritis (FINGERS), Colonic Polyps (large removed surgically), Fractures ( left leg as toddler), Kidney Stones, Peripheral Edema, Chronic Kidney Disease Surgical History: No Surg Hx - [facility] Procedures INSERTION OF INFUSION DEV INTO SUP VENA CAVA, PERC APPROACH (04/01/17) RELEASE SMALL INTESTINE, OPEN APPROACH (08/10/17) REPAIR ABDOMINAL WALL, OPEN APPROACH (08/10/17) Family History: States: No Known Family Hx - Social History Hx Tobacco Use: Yes Hx Alcohol Use: No Hx Substance Use: No - Immunization History Hx Tetanus Toxoid Vaccination: No Hx Influenza Vaccination: No Hx Pneumococcal Vaccination: No Review Of Systems Except As Marked, All Systems Reviewed And Found Negative. Respiratory: Positive for: Other (tachypnea) Physical Exam - Physical Exam Appears: Non-toxic, No Acute Distress Skin: Other (bilateral leg ulcers ) Head: Atraumatic, Normacephalic Eye(s): bilateral: Normal Inspection Nose: Normal Neck: Normal, Supple Chest: Symmetrical Cardiovascular: Rhythm Irregular Respiratory: Normal Breath Sounds, No Rales, No Rhonchi, No Wheezing Gastrointestinal/Abdominal: Soft, No Tenderness, Other (morbidly obese) Extremity: Normal ROM, Other (legs covered in feces and urine, wrapped in a sheet. bilateral leg ulcers) ED Course And Treatment - Laboratory Results Result Diagrams: 04/02/18 15:25 04/02/18 16:10 ECG Rhythm: Atrial Fibrillation (125bpm) ECG Interpretation: Abnormal Interpretation Of ECG: Atrial fibrillation at 125bpm, rapid ventricular response , abnormal QRS-T angle. Abnormal EKG O2 Sat by Pulse Oximetry: 98 (RA) Pulse Ox Interpretation: Normal Medical Decision Making Medical Decision Making: Plan: VBG CT Head w/o Contrast EKG BNP CMP SVITLANA Panel CBC PTT Prothrombin Time CXR One View Azactam 2gm Maxipime 1gm NaCl IV Fluids Vancomycin Blood Culture Urine Culture Wall Catheterization Urinalysis Impression: AMS Secondary to septic shock. Disposition - Disposition Disposition: HOSPITALIZED Disposition Time: 16:39 Condition: CRITICAL Forms: [facility] (Frisian) - POA Core Measure Indicators: Code Sepsis - Clinical Impression Clinical Impression: Septic shock due to Clostridium difficile - Scribe Statement The provider has reviewed the documentation as recorded by the Scribe (Abhinav Rivera) Provider Attestation: All medical record entries made by the Scribe were at my direction and personally dictated by me. I have reviewed the chart and agree that the record accurately reflects my personal performance of the history, physical exam, medical decision making, and the department course for this patient. I have also personally directed, reviewed, and agree with the discharge instructions and disposition. Decision To Admit - Pt Status Changed To: Hospital Disposition Of: Inpatient - Admit Certification Admit to Inpatient:: After my assessment, the patient will require hospitalization for at least two midnights. This is because of the severity of symptoms shown, intensity of services needed, and/or the medical risk in this patient being treated as an outpatient. - InPatient: Physician Admission Certification:: fter my assessment, the patient will require hospitalization for at least two midnights. This is because of the severity of symptoms shown, intensity of services needed, and/or the medical risk in this patient being treated as an outpatient. - . Bed Request Type: ICU Patient Diagnosis: Septic shock due to Clostridium difficile
[2018-04-02 15:28] LABS: BASO # 0.3 K/uL (0.0-0.2); BASO % 0.5 % (0.0-2.0); EOS % 0.1 % (0.0-4.0); HEMOGLOBIN 13.2 g/dL (12.0-18.0); LYMPH # 0.4 K/uL (1.0-4.3); LYMPH % 0.7 % (20.0-40.0); MEAN CELL VOLUME 95.5 fL (80.0-94.0); MEAN CORPUSCULAR HEMOGLOBIN 30.6 pg (27.0-31.0); MEAN PLATELET VOLUME 8.7 fL (7.2-11.7); MONO # 1.2 K/uL (0.0-0.8); MONO % 2.3 % (0.0-10.0); NEUT # 50.4 K/uL (1.8-7.0); NEUT % 96.4 % (50.0-75.0); NRBC % 0.1 % (0.0-2.0); PLATELET COUNT 516 K/uL (130-400); RBC 4.32 Mil/uL (4.40-5.90); RED CELL DISTRIBUTION WIDTH 15.6 % (11.5-14.5)
[2018-04-02 15:34] LABS: VENOUS BLOOD GAS BASE EXCESS -29.2 mmol/L (0.0-2.0); VENOUS BLOOD GAS PCO2 17 mmHg (40-60); VENOUS BLOOD GAS PO2 60 mm/Hg (30-55); VENOUS BLOOD PH 6.87 (7.32-7.43)
[2018-04-02] MEDS ORDERED: Cefepime 1 GM in Sodium Chloride 0.9% 50 ML IVPB ONE (15:34)
[2018-04-02 15:36] LABS: INR 1.2; PROTHROMBIN TIME 13.3 SECONDS (9.7-12.2)
[2018-04-02 15:40] LABS: WHITE BLOOD COUNT 52.3 K/uL (4.8-10.8)
[2018-04-02] MEDS ORDERED: Cefepime IV 1 gm in Dextrose 1 GM/50 ML BAG IVPB SCH (16:00)
[2018-04-02] MEDS ORDERED: Aztreonam 2 GM in Sodium Chloride 0.9% 100 ML IVPB ONE (16:08)
[2018-04-02 16:13] LABS: SQUAMOUS EPITHIAL 1 /hpf (0-5); URINE BACTERIA RARE (<OCC); URINE BILIRUBIN NEGATIVE (NEGATIVE); URINE BLOOD 1+ (NEGATIVE); URINE CLARITY Hazy (Clear); URINE COLOR Yellow (YELLOW); URINE GLUCOSE (UA) NORMAL (Normal); URINE LEUKOCYTE ESTERASE 1+ Leu/uL (Negative); URINE PROTEIN NEGATIVE (NEGATIVE); URINE UROBILINOGEN NORMAL mg/dL (0.2-1.0)
[2018-04-02] MEDS ORDERED: Sodium Bicarbonate (8.4%) 50 Meq Syringe IVP ONE ×2 (16:18→18:45)
[2018-04-02] MEDS ORDERED: Calcium Gluconate 4.65 mEq/10 ml Inj IVP ONE (16:19)
[2018-04-02] MEDS ORDERED: Dextrose 50% SYRINGE Inj (50 ml) IV STA ×2 (16:22→20:59)
[2018-04-02] MEDS ORDERED: (Novolin R) Insulin Human Regular 100 units/ml vial IV ONE (16:23)
[2018-04-02 16:27] LABS: ALB/GLOB RATIO 0.9 (1.0-2.1); ALBUMIN 2.9 g/dL (3.5-5.0); ALT/SGPT 17 U/L (21-72); AST/SGOT 25 U/L (17-59)
[2018-04-02] MEDS ORDERED: Meropenem 1 GM in Sodium Chloride 0.9% 100 ML IVPB ONE (16:28)
[2018-04-02] MEDS ORDERED: Sodium Bicarbonate (8.4%) 50 Meq Syringe ONE (16:34)
[2018-04-02] MEDS ORDERED: metroNIDAZOLE IV 500 mg/100 ml 500 MG/100 ML BAG IVPB STA (16:34)
[2018-04-02] MEDS ORDERED: (Novolin R) Insulin Human Regular 100 units/ml vial ONE (16:34)
[2018-04-02] MEDS ORDERED: Dextrose 50% SYRINGE Inj (50 ml) ONE (16:34)
[2018-04-02 16:36] LABS: B-TYPE NATRIURETIC PEPTIDE 5000 pg/mL (0-900); CK-MB 12.1 ng/mL (0.0-3.38)
[2018-04-02] MEDS: Vancomycin 1 gm/NS 200 ml 1 GM/200 ML BAG IVPB SCH ×2 (16:42→18:49)
[2018-04-02 16:44] LABS: ANISOCYTOSIS SLIGHT; BANDS 2 % (0-2); LARGE PLATELETS PRESENT; LYMPHOCYTE 1 % (20-40); METAMYELOCYTE 1 % (0-0); MICROCYTOSIS SLIGHT; MONOCYTE 4 % (0-10); MYELOCYTE 2 % (0-0); NEUTROPHIL 90 % (50-75); PLATELET ESTIMATE INCREASED (NORMAL); POIKILOCYTOSIS SLIGHT; TOTAL CELLS COUNTED 100; TOXIC GRANULATION PRESENT
[2018-04-02 16:44] LABS: GFR AFRICAN-AMERICAN 11; GFR NON-AFRICAN AMERICAN 9
[2018-04-02 16:45] LABS: BLOOD UREA NITROGEN 150 mg/dL (9-20)
[2018-04-02] MEDS ORDERED: Sodium Bicarbonate 8.4% 150 MEQ in Dextrose 5% In Water 850 ML IV SCH (16:45)
[2018-04-02] MEDS ORDERED: Calcium Gluconate 4.65 mEq/10 ml Inj ONE (16:57)
--- NOTE | 2018-04-02 17:36 | CP.PCM.HP ---
Addendum entered and electronically signed by Charly Gagnon 04/02/18 20:43: Please note the updated surgical history, physical exam and assessment and plan: PSHx: 08/2017: exploratory laparotomy, lysis of adhesions and removal of ossified granuloma, ventral hernia repair. 10/2015: cystoscopy, removal of a left double-j stent, left ureteroscopy and left retrograde pyelogram. 09/2015: cystoscopy, removal of a left double-j stent, a left ureteroscopy, a left retrograde pyelogram, insertion of a left double-j stent and a left laser lithotripsy. 09/2015: cystoscopy with stent insertion. Physical Exam: Constitutional: In acute distress, toxic appearing, unkempt Respiratory: Abnormal breathing pattern, tachypnea, no rales/rhonchi/wheezing heard Eye exam: eomi, perrl Neck exam: no thyromegaly appreciated, normal inspection ENT: mucous membranes dry Cardiovascular: tachycardic, irregular rhythm, +S1 +S2, no murmurs/rubs appreciated, no JVD GI: increased bowel sounds, central obesity, soft, no guarding, no rebound tenderness, non-distended Ext: edema and erythema from ankles to mid-trejo bilaterally, bilateral cellulitic changes, abnormal capillary refill Neuro: altered, CN II-XII not able to be tested Skin: pale appearing, delayed capillary refill A/P: Assessment: 72 year old male with a PMHx of arthritis, history of colon polyps, kidney stones, renal insufficiency, glaucoma s/p partial colectomy in 2014 with weakness, fevers for 1 week prior to presentation: SEVERE SEPSIS On admission: hypotensive, temp 94 deg, wbc 52, lactate 3.3 Consult Infectious Disease, Dr Courtney Buchanan serial serum lactate F/U CT chest/abd/pelvis w/o contrast F/U CT head w/o contrast F/U C.Diff toxin F/U Blood Cx, urine Cx, would Cx F/U Hep panel F/U procalcitonin Medications: Flagyl 500mg IVP Q8H Meropenem 500mg IVP Q8H Vancomycin 500mg PO QID Vancomycin 1g IV QD NS 500ml/hr LOWER EXTREMITY CELLULITS BILATERALLY F/U wound Cx of right leg Prior hx of cellulitis since 2017 Wound care center/Hyperbaric consult F/U xray of LE b/l METABOLIC ENCEPHALOPATHY Etiology: sepsis, uremia, severe metabolic acidosis emergent dialysis catheter placed by ICU Nephrology on board F/U CT head ACUTE RENAL FAILURE 2/2 to end organ damage from severe sepsis On admission BUN 150, Cr 6.2 Consult nephrology, Dr Luna Emergent HD through femoral catheter AFIB W/ RVR Consult Cardio, Dr Henriquez F/U Echo F/U Digoxin level Hold asa until CT head rules out bleed F/U hgbA1c, Lipid panel, TSH/Free T4 HYPERKALEMIC 2/2 to cell necrosis from poor tissue perfusion in setting of severe sepsis On admission: potassium 7.1 F/U serial troponins Calcium gluconate 4.65 meq given once Insulin Regular 10u IV given once ACIDOTIC Ph on admission: 6.87 Likely metabolic given elevated lactate Bicarb 1 amp given once Dextrose 5% with Bicarb 50 meq @ 100ml/hr ABNORMAL URINANALYSIS UA on admission: 1+ leuk esterase, wbc, 1+ blood LOWER EXTREMITY CELLULITS BILATERALLY F/U wound Cx of right leg Prior hx of cellulitis since 2017 Wound care center/Hyperbaric consult F/U xray of LE b/l ELEVATED PROBNP On admission: Pro-bnp 5000 ARF possibly a contributing factor F/U Echo Echo 08/2017: * Difficult study. EF 65%. Diastolic filling pressures normal. Aortic valve cannot comment. Poor study. PROPHYLAXIS SCDs contraindicated due to LE cellultis Original Note: <Charly Gagnon - Last Filed: 04/02/18 18:53> History of Present Illness - History of Present Illness History of Present Illness: PGY-[address] Torres HPI: Mr Mcconnell is a 72 year old male with a PMHx of arthritis, history of colon polyps, kidney stones, renal insufficiency, glaucoma s/p partial colectomy in 2014 who was brought by ambulance because he fell out of his chair while at home. History collected from son who lives with patient. Son stated he noticed his father feeling weak for the past 1 week - patient refused to come to hospital soon. Per son, in past 1 week patient stated he felt hot and cold at times but temperature was never checked. Patient also had a loss of appetite for past 1 week with constipation. Yesterday patient's breathing became labored - son wanted to bring patient to hospital but patient refused. Today breathing worsened and patient fell out of his chair due to weakness - son called 911. Normally patient ambulates and performs ADLs on his own. Son does not believe patient had specific symptoms such as chest pain, abdominal pain, dysuria as patient never endorsed any of that to the son. 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 [employer]; lives with son Duke Wall, son: [phone] [place], daughter: [phone] Code Status: Full Code Present on Admission - Present on Admission Any Indicators Present on Admission: No Review of Systems - Review of Systems Systems not reviewed;Unavailable: Altered Mental Status Review of Systems: Per son: - Constitutional Constitutional: Chills, Fever, Lethargy, Malaise - Cardiovascular Cardiovascular: absent: Chest Pain - Respiratory Respiratory: Dyspnea - Gastrointestinal Gastrointestinal: absent: Abdominal Pain - Genitourinary Genitourinary: absent: Dysuria Past Patient History - Infectious Disease Hx of Infectious Diseases: None - Past Medical History & Family History Past Medical History?: Yes - Past Social History Smoking Status: Former Smoker - CARDIAC Hx Peripheral Edema: Yes - PULMONARY Hx Respiratory Disorders: No - NEUROLOGICAL Hx Neurological Disorder: No - HEENT Hx HEENT Problems: Yes Hx Glaucoma: Yes - RENAL Hx Chronic Kidney Disease: Yes Hx Kidney Stones: Yes - ENDOCRINE/METABOLIC Hx Endocrine Disorders: No - HEMATOLOGICAL/ONCOLOGICAL Hx Blood Disorders: Yes Hx Cancer: Yes (Colon) - INTEGUMENTARY Hx Dermatological Problems: No - MUSCULOSKELETAL/RHEUMATOLOGICAL Hx Arthritis: Yes (FINGERS) Hx Fractures: Yes (left leg as toddler) - GASTROINTESTINAL Hx Gastrointestinal Disorders: Yes Other/Comment: Colon Ca - GENITOURINARY/GYNECOLOGICAL Hx Genitourinary Disorders: Yes Hx Prostate Problems: Yes - PSYCHIATRIC Hx Substance Use: No - SURGICAL HISTORY Hx Surgeries: Yes Other/Comment: Cysto, stent insertion 09/29/15, Colon resction 2010. [facility]ENTER/LITHOTRIPSY - ANESTHESIA Hx Anesthesia: Yes Hx Anesthesia Reactions: No Hx Malignant Hyperthermia: No Meds Allergies/Adverse Reactions: Allergies Allergy/AdvReac Type Severity Reaction Status Date / Time cefdinir [From Omnicef] Allergy Verified 10/02/17 11:52 Physical Exam - Constitutional Appears: In Acute Distress - Head Exam Head Exam: ATRAUMATIC, NORMAL INSPECTION - Eye Exam Eye Exam: EOMI Pupil Exam: PERRL - ENT Exam ENT Exam: Mucous Membranes Dry - Neck Exam Neck exam: Positive for: Normal Inspection - Respiratory Exam Respiratory Exam: Clear to Auscultation Bilateral, NORMAL BREATHING PATTERN. absent: Rales, Rhonchi, Wheezes - Cardiovascular Exam Cardiovascular Exam: Tachycardia, +S1, +S2. absent: JVD - GI/Abdominal Exam GI & Abdominal Exam: Diminished Bowel Sounds, Soft - Extremities Exam Extremities exam: Negative for: normal capillary refill - Neurological Exam Neurological exam: Altered Results - Vital Signs Recent Vital Signs: Last Vital Signs Temp 94 F L 04/02/18 16:05 Pulse 117 H 04/02/18 16:05 Resp 28 H 04/02/18 16:05 BP 91/31 L 04/02/18 16:05 Pulse Ox 98 04/02/18 16:40 - Labs Result Diagrams: 04/02/18 15:25 04/02/18 16:10 Labs: Laboratory Results - last 24 hr 04/02/18 04/02/18 04/02/18 15:25 15:25 15:30 WBC 52.3 H* D RBC 4.32 L Hgb 13.2 D Hct 41.2 MCV 95.5 H D MCH 30.6 MCHC 32.0 L RDW 15.6 H Plt Count 516 H D MPV 8.7 Neut % (Auto) 96.4 H Lymph % (Auto) 0.7 L [place] % (Auto) 2.3 Eos % (Auto) 0.1 Baso % (Auto) 0.5 Neut # (Auto) 50.4 H Lymph # (Auto) 0.4 L [place] # (Auto) 1.2 H Eos # (Auto) 0.0 Baso # (Auto) 0.3 H Neutrophils % (Manual) 90 H Band Neutrophils % 2 Lymphocytes % (Manual) 1 L Monocytes % (Manual) 4 Metamyelocytes % 1 H Myelocytes % 2 H Toxic Granulation Present Platelet Estimate Increased H Large Platelets Present Poikilocytosis (manual Slight Anisocytosis (manual) Slight Microcytosis (manual) Slight Macrocytosis (manual) Slight PT 13.3 H INR 1.2 APTT 21 pO2 60 H VBG pH 6.87 L* VBG pCO2 17 L* VBG HCO3 1.2 VBG Total CO2 3.6 L VBG O2 Sat (Calc) 90.1 H VBG Base Excess -29.2 L VBG Potassium 11.7 H* Sodium 123.0 L Chloride 99.0 Glucose 202 H Lactate 3.3 H Crit Value Called To 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 cleaner Crit Value Called By Dennis raza md Crit Value Read Back Y Blood Gas Notified Time 1535 Potassium Carbon Dioxide Anion Gap BUN Creatinine Est GFR ( Amer) Est GFR (Non-Af Amer) Random Glucose Calcium Total Bilirubin AST ALT Alkaline Phosphatase Total Creatine Kinase CK-MB (Mass) Troponin I NT-Pro-B Natriuret Pep Total Protein Albumin Globulin Albumin/Globulin Ratio Venous Blood Potassium 11.7 H* Urine Color Urine Clarity Urine pH Ur Specific [place] Urine Protein Urine Glucose (UA) Urine Ketones Urine Blood Urine Nitrate Urine Bilirubin Urine Urobilinogen Ur Leukocyte Esterase Urine WBC (Auto) Urine RBC (Auto) Ur Squamous Epith Cells Urine Bacteria 04/02/18 04/02/18 16:03 16:10 WBC RBC Hgb Hct MCV MCH MCHC RDW Plt Count MPV Neut % (Auto) Lymph % (Auto) [place] % (Auto) Eos % (Auto) Baso % (Auto) Neut # (Auto) Lymph # (Auto) [place] # (Auto) Eos # (Auto) Baso # (Auto) Neutrophils % (Manual) Band Neutrophils % Lymphocytes % (Manual) Monocytes % (Manual) Metamyelocytes % Myelocytes % Toxic Granulation Platelet Estimate Large Platelets Poikilocytosis (manual Anisocytosis (manual) Microcytosis (manual) Macrocytosis (manual) PT INR APTT pO2 VBG pH VBG pCO2 VBG HCO3 VBG Total CO2 VBG O2 Sat (Calc) VBG Base Excess VBG Potassium Sodium 131 L Chloride 109 H Glucose Lactate Crit Value Called To Crit Value Called By Crit Value Read Back Blood Gas Notified Time Potassium 7.1 H* D Carbon Dioxide < 5 L* D Anion Gap 24 H BUN 150 H* D Creatinine 6.2 H Est GFR ( Amer) 11 Est GFR (Non-Af Amer) 9 Random Glucose 176 H Calcium 7.0 L Total Bilirubin 0.8 AST 25 ALT 17 L Alkaline Phosphatase 95 Total Creatine Kinase 476 H CK-MB (Mass) 12.1 H Troponin I < 0.0120 NT-Pro-B Natriuret Pep 5000 H Total Protein 5.9 L Albumin 2.9 L Globulin 3.1 Albumin/Globulin Ratio 0.9 L Venous Blood Potassium Urine Color Yellow Urine Clarity Hazy Urine pH 5.0 Ur Specific [place] 1.014 Urine Protein Negative Urine Glucose (UA) Normal Urine Ketones Negative Urine Blood 1+ H Urine Nitrate Negative Urine Bilirubin Negative Urine Urobilinogen Normal Ur Leukocyte Esterase 1+ H Urine WBC (Auto) 7 H Urine RBC (Auto) 7 H Ur Squamous Epith Cells 1 Urine Bacteria Rare Assessment & Plan - Assessment and Plan (Free Text) Assessment: 72 year old male with a PMHx of arthritis, history of colon polyps, kidney stones, renal insufficiency, glaucoma s/p partial colectomy in 2014 with weakness, fevers for 1 week prior to presentation: SEVERE SEPSIS On admission: hypotensive, temp 94 deg, wbc 52, lactate 3.3 Consult Infectious Disease, Dr Courtney Buchanan serial serum lactate F/U CT chest/abd/pelvis w/o contrast F/U CT head w/o contrast F/U C.Diff toxin F/U Blood Cx, urine Cx, would Cx F/U Hep panel F/U procalcitonin Medications: Flagyl 500mg IVP Q8H Meropenem 500mg IVP Q8H Vancomycin 500mg PO QID NS 500ml/hr ACUTE RENAL FAILURE 2/2 to end organ damage from severe sepsis On admission BUN 150, Cr 6.2 Consult nephrology, Dr Luna Emergent HD through femoral catheter HYPERKALEMIC 2/2 to cell necrosis from poor tissue perfusion in setting of severe sepsis On admission: potassium 7.1 F/U serial troponins Calcium gluconate 4.65 meq given once Insulin Regular 10u IV given once ACIDOTIC Ph on admission: 6.87 Likely metabolic given elevated lactate Bicarb 1 amp given once Dextrose 5% with Bicarb 50 meq @ 100ml/hr ABNORMAL URINANALYSIS UA on admission: 1+ leuk esterase, wbc, 1+ blood OPEN WOUND, LOWER EXTREMITY F/U wound Cx ELEVATED PROBNP On admission: Pro-bnp 5000 ARF possibly a contributing factor F/U Echo Echo 08/2017: * Difficult study. EF 65%. Diastolic filling pressures normal. Aortic valve cannot comment. Poor study. <Lisbet Torres V - Last Filed: 04/03/18 02:16> Results - Vital Signs Recent Vital Signs: Last Vital Signs Temp 95.7 F L 04/03/18 00:00 Pulse 127 H 04/03/18 01:15 Resp 23 04/03/18 01:15 BP 133/60 04/03/18 01:08 Pulse Ox 100 04/03/18 01:15 - Labs Result Diagrams: 04/02/18 22:30 04/03/18 00:55 Labs: Laboratory Results - last 24 hr 04/02/18 04/02/18 04/02/18 15:25 15:25 15:30 WBC 52.3 H* D RBC 4.32 L Hgb 13.2 D Hct 41.2 MCV 95.5 H D MCH 30.6 MCHC 32.0 L RDW 15.6 H Plt Count 516 H D MPV 8.7 Neut % (Auto) 96.4 H Lymph % (Auto) 0.7 L [place] % (Auto) 2.3 Eos % (Auto) 0.1 Baso % (Auto) 0.5 Neut # (Auto) 50.4 H Lymph # (Auto) 0.4 L [place] # (Auto) 1.2 H Eos # (Auto) 0.0 Baso # (Auto) 0.3 H Neutrophils % (Manual) 90 H Band Neutrophils % 2 Lymphocytes % (Manual) 1 L Monocytes % (Manual) 4 Metamyelocytes % 1 H Myelocytes % 2 H Toxic Granulation Present Platelet Estimate Increased H Large Platelets Present Giant Platelets Polychromasia Hypochromasia (manual) Poikilocytosis (manual Slight Anisocytosis (manual) Slight Microcytosis (manual) Slight Macrocytosis (manual) Slight Fiatt Cells PT 13.3 H INR 1.2 APTT 21 Puncture Site pCO2 pO2 60 H HCO3 ABG pH ABG Total CO2 ABG O2 Saturation ABG Base Excess [place] Test ABG Potassium VBG pH 6.87 L* VBG pCO2 17 L* VBG HCO3 1.2 VBG Total CO2 3.6 L VBG O2 Sat (Calc) 90.1 H VBG Base Excess -29.2 L VBG Potassium 11.7 H* A-a O2 Difference Respiratory Index Sodium 123.0 L Chloride 99.0 Glucose 202 H Lactate 3.3 H Liter Flow FiO2 Inspiratory BiPAP Expiratory BiPAP Crit Value Called To 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 basin cleaner Crit Value Called By Dennis raza md Crit Value Read Back Y Blood Gas Notified Time 1535 Potassium Carbon Dioxide Anion Gap BUN Creatinine Est GFR ( Amer) Est GFR (Non-Af Amer) POC Glucose (mg/dL) Random Glucose Lactic Acid Calcium Phosphorus Magnesium Total Bilirubin AST ALT Alkaline Phosphatase Total Creatine Kinase CK-MB (Mass) Troponin I NT-Pro-B Natriuret Pep Total Protein Albumin Globulin Albumin/Globulin Ratio Procalcitonin TSH 3rd Generation Arterial Blood Potassium Venous Blood Potassium 11.7 H* Urine Color Urine Clarity Urine pH Ur Specific [place] Urine Protein Urine Glucose (UA) Urine Ketones Urine Blood Urine Nitrate Urine Bilirubin Urine Urobilinogen Ur Leukocyte Esterase Urine WBC (Auto) Urine RBC (Auto) Ur Squamous Epith Cells Urine Bacteria Digoxin Urine Opiates Screen Urine Methadone Screen Ur Barbiturates Screen Ur Phencyclidine Scrn Ur Amphetamines Screen U Benzodiazepines Scrn U Oth Cocaine Metabols U Cannabinoids Screen Blood Type Antibody Screen 04/02/18 04/02/18 04/02/18 16:03 16:10 18:08 WBC RBC Hgb Hct MCV MCH MCHC RDW Plt Count MPV Neut % (Auto) Lymph % (Auto) [place] % (Auto) Eos % (Auto) Baso % (Auto) Neut # (Auto) Lymph # (Auto) [place] # (Auto) Eos # (Auto) Baso # (Auto) Neutrophils % (Manual) Band Neutrophils % Lymphocytes % (Manual) Monocytes % (Manual) Metamyelocytes % Myelocytes % Toxic Granulation Platelet Estimate Large Platelets Giant Platelets Polychromasia Hypochromasia (manual) Poikilocytosis (manual Anisocytosis (manual) Microcytosis (manual) Macrocytosis (manual) Shaan Cells PT INR APTT Puncture Site pCO2 pO2 HCO3 ABG pH ABG Total CO2 ABG O2 Saturation ABG Base Excess [place] Test ABG Potassium VBG pH VBG pCO2 VBG HCO3 VBG Total CO2 VBG O2 Sat (Calc) VBG Base Excess VBG Potassium A-a O2 Difference Respiratory Index Sodium 131 L Chloride 109 H Glucose Lactate Liter Flow FiO2 Inspiratory BiPAP Expiratory BiPAP Crit Value Called To Crit Value Called By Crit Value Read Back Blood Gas Notified Time Potassium 7.1 H* D Carbon Dioxide < 5 L* D Anion Gap 24 H BUN 150 H* D Creatinine 6.2 H Est GFR ( Amer) 11 Est GFR (Non-Af Amer) 9 POC Glucose (mg/dL) Random Glucose 176 H Lactic Acid Calcium 7.0 L Phosphorus 12.4 H Magnesium 2.4 H Total Bilirubin 0.8 AST 25 ALT 17 L Alkaline Phosphatase 95 Total Creatine Kinase 476 H CK-MB (Mass) 12.1 H Troponin I < 0.0120 < 0.0120 NT-Pro-B Natriuret Pep 5000 H 5290 H Total Protein 5.9 L Albumin 2.9 L Globulin 3.1 Albumin/Globulin Ratio 0.9 L Procalcitonin TSH 3rd Generation 2.67 Arterial Blood Potassium Venous Blood Potassium Urine Color Yellow Urine Clarity Hazy Urine pH 5.0 Ur Specific [place] 1.014 Urine Protein Negative Urine Glucose (UA) Normal Urine Ketones Negative Urine Blood 1+ H Urine Nitrate Negative Urine Bilirubin Negative Urine Urobilinogen Normal Ur Leukocyte Esterase 1+ H Urine WBC (Auto) 7 H Urine RBC (Auto) 7 H Ur Squamous Epith Cells 1 Urine Bacteria Rare Digoxin Urine Opiates Screen Urine Methadone Screen Ur Barbiturates Screen Ur Phencyclidine Scrn Ur Amphetamines Screen U Benzodiazepines Scrn U Oth Cocaine Metabols U Cannabinoids Screen Blood Type Antibody Screen 04/02/18 04/02/18 04/02/18 18:08 18:36 18:51 WBC RBC Hgb Hct MCV MCH MCHC RDW Plt Count MPV Neut % (Auto) Lymph % (Auto) [place] % (Auto) Eos % (Auto) Baso % (Auto) Neut # (Auto) Lymph # (Auto) [place] # (Auto) Eos # (Auto) Baso # (Auto) Neutrophils % (Manual) Band Neutrophils % Lymphocytes % (Manual) Monocytes % (Manual) Metamyelocytes % Myelocytes % Toxic Granulation Platelet Estimate Large Platelets Giant Platelets Polychromasia Hypochromasia (manual) Poikilocytosis (manual Anisocytosis (manual) Microcytosis (manual) Macrocytosis (manual) Shaan Cells PT INR APTT Puncture Site pCO2 pO2 44 HCO3 ABG pH ABG Total CO2 ABG O2 Saturation ABG Base Excess [place] Test ABG Potassium VBG pH 7.07 L* VBG pCO2 15 L* VBG HCO3 5.3 VBG Total CO2 4.8 L VBG O2 Sat (Calc) 82.4 H VBG Base Excess -23.8 L VBG Potassium 4.1 A-a O2 Difference Respiratory Index Sodium 135.0 Chloride 114.0 H Glucose 108 Lactate 2.3 H Liter Flow FiO2 Inspiratory BiPAP Expiratory BiPAP Crit Value Called To Becka curriculum and instruction specialist Crit Value Called By Ghazala Crit Value Read Back Y Blood Gas Notified Time 1840 Potassium Carbon Dioxide Anion Gap BUN Creatinine Est GFR ( Amer) Est GFR (Non-Af Amer) POC Glucose (mg/dL) Random Glucose Lactic Acid 3.1 H Calcium Phosphorus Magnesium Total Bilirubin AST ALT Alkaline Phosphatase Total Creatine Kinase CK-MB (Mass) Troponin I NT-Pro-B Natriuret Pep Total Protein Albumin Globulin Albumin/Globulin Ratio Procalcitonin 6.48 H TSH 3rd Generation Arterial Blood Potassium Venous Blood Potassium 4.1 Urine Color Urine Clarity Urine pH Ur Specific [place] Urine Protein Urine Glucose (UA) Urine Ketones Urine Blood Urine Nitrate Urine Bilirubin Urine Urobilinogen Ur Leukocyte Esterase Urine WBC (Auto) Urine RBC (Auto) Ur Squamous Epith Cells Urine Bacteria Digoxin Urine Opiates Screen Urine Methadone Screen Ur Barbiturates Screen Ur Phencyclidine Scrn Ur Amphetamines Screen U Benzodiazepines Scrn U Oth Cocaine Metabols U Cannabinoids Screen Blood Type Antibody Screen 04/02/18 04/02/18 04/02/18 20:24 20:40 20:49 WBC RBC Hgb Hct MCV MCH MCHC RDW Plt Count MPV Neut % (Auto) Lymph % (Auto) [place] % (Auto) Eos % (Auto) Baso % (Auto) Neut # (Auto) Lymph # (Auto) [place] # (Auto) Eos # (Auto) Baso # (Auto) Neutrophils % (Manual) Band Neutrophils % Lymphocytes % (Manual) Monocytes % (Manual) Metamyelocytes % Myelocytes % Toxic Granulation Platelet Estimate Large Platelets Giant Platelets Polychromasia Hypochromasia (manual) Poikilocytosis (manual Anisocytosis (manual) Microcytosis (manual) Macrocytosis (manual) Fiatt Cells PT INR APTT Puncture Site Rra pCO2 16 L* pO2 149 H 38 HCO3 12.3 L ABG pH 7.29 L ABG Total CO2 8.2 L ABG O2 Saturation 98.0 ABG Base Excess -16.3 L [place] Test Na ABG Potassium 2.3 L* VBG pH 7.24 L VBG pCO2 27 L VBG HCO3 12.9 VBG Total CO2 12.4 L VBG O2 Sat (Calc) 76.8 H VBG Base Excess -14.2 L VBG Potassium 4.0 A-a O2 Difference 45.0 Respiratory Index 0.3 Sodium 146.0 137.0 Chloride 124.0 H 108.0 H Glucose 100 125 H Lactate 2.5 H 4.4 H* Liter Flow 3.0 FiO2 30.0 Inspiratory BiPAP Expiratory BiPAP Crit Value Called To Ranjeet Pollack md Crit Value Called By Ghazala Vivar Crit Value Read Back Y Y Blood Gas Notified Time 2042 2052 Potassium Carbon Dioxide Anion Gap BUN Creatinine Est GFR ( Amer) Est GFR (Non-Af Amer) POC Glucose (mg/dL) 137 H Random Glucose Lactic Acid Calcium Phosphorus Magnesium Total Bilirubin AST ALT Alkaline Phosphatase Total Creatine Kinase CK-MB (Mass) Troponin I NT-Pro-B Natriuret Pep Total Protein Albumin Globulin Albumin/Globulin Ratio Procalcitonin TSH 3rd Generation Arterial Blood Potassium 2.3 L* Venous Blood Potassium 4.0 Urine Color Urine Clarity Urine pH Ur Specific [place] Urine Protein Urine Glucose (UA) Urine Ketones Urine Blood Urine Nitrate Urine Bilirubin Urine Urobilinogen Ur Leukocyte Esterase Urine WBC (Auto) Urine RBC (Auto) Ur Squamous Epith Cells Urine Bacteria Digoxin Urine Opiates Screen Urine Methadone Screen Ur Barbiturates Screen Ur Phencyclidine Scrn Ur Amphetamines Screen U Benzodiazepines Scrn U Oth Cocaine Metabols U Cannabinoids Screen Blood Type Antibody Screen 04/02/18 04/02/18 04/02/18 20:50 21:16 21:16 WBC RBC Hgb Hct MCV MCH MCHC RDW Plt Count MPV Neut % (Auto) Lymph % (Auto) [place] % (Auto) Eos % (Auto) Baso % (Auto) Neut # (Auto) Lymph # (Auto) [place] # (Auto) Eos # (Auto) Baso # (Auto) Neutrophils % (Manual) Band Neutrophils % Lymphocytes % (Manual) Monocytes % (Manual) Metamyelocytes % Myelocytes % Toxic Granulation Platelet Estimate Large Platelets Giant Platelets Polychromasia Hypochromasia (manual) Poikilocytosis (manual Anisocytosis (manual) Microcytosis (manual) Macrocytosis (manual) Fiatt Cells PT INR APTT Puncture Site pCO2 pO2 HCO3 ABG pH ABG Total CO2 ABG O2 Saturation ABG Base Excess [place] Test ABG Potassium VBG pH VBG pCO2 VBG HCO3 VBG Total CO2 VBG O2 Sat (Calc) VBG Base Excess VBG Potassium A-a O2 Difference Respiratory Index Sodium 141 Chloride 111 H Glucose Lactate Liter Flow FiO2 Inspiratory BiPAP Expiratory BiPAP Crit Value Called To Crit Value Called By Crit Value Read Back Blood Gas Notified Time Potassium 4.1 Carbon Dioxide 11 L* D Anion Gap 23 H BUN 116 H* D Creatinine 4.7 H Est GFR ( Amer) 15 Est GFR (Non-Af Amer) 12 POC Glucose (mg/dL) Random Glucose 126 H Lactic Acid 4.1 H* Calcium 9.3 Phosphorus 8.1 H Magnesium 1.9 Total Bilirubin AST ALT Alkaline Phosphatase Total Creatine Kinase CK-MB (Mass) Troponin I NT-Pro-B Natriuret Pep Total Protein Albumin Globulin Albumin/Globulin Ratio Procalcitonin TSH 3rd Generation Arterial Blood Potassium Venous Blood Potassium Urine Color Urine Clarity Urine pH Ur Specific [place] Urine Protein Urine Glucose (UA) Urine Ketones Urine Blood Urine Nitrate Urine Bilirubin Urine Urobilinogen Ur Leukocyte Esterase Urine WBC (Auto) Urine RBC (Auto) Ur Squamous Epith Cells Urine Bacteria Digoxin < 0.4 L Urine Opiates Screen Urine Methadone Screen Ur Barbiturates Screen Ur Phencyclidine Scrn Ur Amphetamines Screen U Benzodiazepines Scrn U Oth Cocaine Metabols U Cannabinoids Screen Blood Type Antibody Screen 04/02/18 04/02/18 04/02/18 22:30 22:42 23:04 WBC 22.6 H D RBC 3.73 L Hgb 11.5 L Hct 34.3 L MCV 92.0 D MCH 30.9 MCHC 33.6 RDW 14.6 H Plt Count 312 D MPV 8.2 Neut % (Auto) 97.6 H Lymph % (Auto) 0.8 L [place] % (Auto) 1.5 Eos % (Auto) 0.0 Baso % (Auto) 0.1 Neut # (Auto) 22.1 H Lymph # (Auto) 0.2 L [place] # (Auto) 0.3 Eos # (Auto) 0.0 Baso # (Auto) 0.0 Neutrophils % (Manual) 86 H Band Neutrophils % 12 H* Lymphocytes % (Manual) TEST NOT PERFORMED Monocytes % (Manual) 2 Metamyelocytes % Myelocytes % Toxic Granulation Present Platelet Estimate Normal Large Platelets Present Giant Platelets Present Polychromasia Slight Hypochromasia (manual) Slight Poikilocytosis (manual Slight Anisocytosis (manual) Slight Microcytosis (manual) Slight Macrocytosis (manual) Slight Fiatt Cells Slight PT INR APTT Puncture Site Lra pCO2 31 L pO2 20 L* HCO3 15.3 L ABG pH 7.30 L ABG Total CO2 16.3 L ABG O2 Saturation 40.2 L ABG Base Excess -9.9 L [place] Test Na ABG Potassium 3.3 L VBG pH VBG pCO2 VBG HCO3 VBG Total CO2 VBG O2 Sat (Calc) VBG Base Excess VBG Potassium A-a O2 Difference 298.0 Respiratory Index 14.9 Sodium 140.0 Chloride 107.0 Glucose 158 H Lactate 5.8 H* Liter Flow FiO2 50.0 Inspiratory BiPAP 20 Expiratory BiPAP 10 Crit Value Called To Francisco Javier lee Crit Value Called By Ghazala Crit Value Read Back Y Blood Gas Notified Time 2248 Potassium Carbon Dioxide Anion Gap BUN Creatinine Est GFR ( Amer) Est GFR (Non-Af Amer) POC Glucose (mg/dL) Random Glucose Lactic Acid Calcium Phosphorus Magnesium Total Bilirubin AST ALT Alkaline Phosphatase Total Creatine Kinase CK-MB (Mass) Troponin I NT-Pro-B Natriuret Pep Total Protein Albumin Globulin Albumin/Globulin Ratio Procalcitonin TSH 3rd Generation Arterial Blood Potassium 3.3 L Venous Blood Potassium Urine Color Urine Clarity Urine pH Ur Specific [place] Urine Protein Urine Glucose (UA) Urine Ketones Urine Blood Urine Nitrate Urine Bilirubin Urine Urobilinogen Ur Leukocyte Esterase Urine WBC (Auto) Urine RBC (Auto) Ur Squamous Epith Cells Urine Bacteria Digoxin Urine Opiates Screen Urine Methadone Screen Ur Barbiturates Screen Ur Phencyclidine Scrn Ur Amphetamines Screen U Benzodiazepines Scrn U Oth Cocaine Metabols U Cannabinoids Screen Blood Type A POSITIVE Antibody Screen Negative 04/03/18 04/03/18 04/03/18 00:01 00:55 00:55 WBC RBC Hgb Hct MCV MCH MCHC RDW Plt Count MPV Neut % (Auto) Lymph % (Auto) [place] % (Auto) Eos % (Auto) Baso % (Auto) Neut # (Auto) Lymph # (Auto) [place] # (Auto) Eos # (Auto) Baso # (Auto) Neutrophils % (Manual) Band Neutrophils % Lymphocytes % (Manual) Monocytes % (Manual) Metamyelocytes % Myelocytes % Toxic Granulation Platelet Estimate Large Platelets Giant Platelets Polychromasia Hypochromasia (manual) Poikilocytosis (manual Anisocytosis (manual) Microcytosis (manual) Macrocytosis (manual) [place] Cells PT INR APTT Puncture Site pCO2 pO2 HCO3 ABG pH ABG Total CO2 ABG O2 Saturation ABG Base Excess [place] Test ABG Potassium VBG pH VBG pCO2 VBG HCO3 VBG Total CO2 VBG O2 Sat (Calc) VBG Base Excess VBG Potassium A-a O2 Difference Respiratory Index Sodium 140 Chloride 109 H Glucose Lactate Liter Flow FiO2 Inspiratory BiPAP Expiratory BiPAP Crit Value Called To Crit Value Called By Crit Value Read Back Blood Gas Notified Time Potassium 3.7 Carbon Dioxide 10 L* Anion Gap 24 H BUN 81 H Creatinine 3.1 H Est GFR ( Amer) 24 Est GFR (Non-Af Amer) 20 POC Glucose (mg/dL) 204 H Random Glucose 206 H Lactic Acid Calcium 7.4 L Phosphorus 5.0 H Magnesium 2.2 Total Bilirubin 1.4 H AST 33 ALT 24 Alkaline Phosphatase 86 Total Creatine Kinase CK-MB (Mass) Troponin I 0.0520 NT-Pro-B Natriuret Pep Total Protein 4.7 L Albumin 2.2 L D Globulin 2.4 Albumin/Globulin Ratio 0.9 L Procalcitonin TSH 3rd Generation Arterial Blood Potassium Venous Blood Potassium Urine Color Urine Clarity Urine pH Ur Specific [place] Urine Protein Urine Glucose (UA) Urine Ketones Urine Blood Urine Nitrate Urine Bilirubin Urine Urobilinogen Ur Leukocyte Esterase Urine WBC (Auto) Urine RBC (Auto) Ur Squamous Epith Cells Urine Bacteria Digoxin Urine Opiates Screen Urine Methadone Screen Ur Barbiturates Screen Ur Phencyclidine Scrn Ur Amphetamines Screen U Benzodiazepines Scrn U Oth Cocaine Metabols U Cannabinoids Screen Blood Type Antibody Screen 04/03/18 00:57 WBC RBC Hgb Hct MCV MCH MCHC RDW Plt Count MPV Neut % (Auto) Lymph % (Auto) [place] % (Auto) Eos % (Auto) Baso % (Auto) Neut # (Auto) Lymph # (Auto) [place] # (Auto) Eos # (Auto) Baso # (Auto) Neutrophils % (Manual) Band Neutrophils % Lymphocytes % (Manual) Monocytes % (Manual) Metamyelocytes % Myelocytes % Toxic Granulation Platelet Estimate Large Platelets Giant Platelets Polychromasia Hypochromasia (manual) Poikilocytosis (manual Anisocytosis (manual) Microcytosis (manual) Macrocytosis (manual) [place] Cells PT INR APTT Puncture Site pCO2 pO2 HCO3 ABG pH ABG Total CO2 ABG O2 Saturation ABG Base Excess [place] Test ABG Potassium VBG pH VBG pCO2 VBG HCO3 VBG Total CO2 VBG O2 Sat (Calc) VBG Base Excess VBG Potassium A-a O2 Difference Respiratory Index Sodium Chloride Glucose Lactate Liter Flow FiO2 Inspiratory BiPAP Expiratory BiPAP Crit Value Called To Crit Value Called By Crit Value Read Back Blood Gas Notified Time Potassium Carbon Dioxide Anion Gap BUN Creatinine Est GFR ( Amer) Est GFR (Non-Af Amer) POC Glucose (mg/dL) Random Glucose Lactic Acid Calcium Phosphorus Magnesium Total Bilirubin AST ALT Alkaline Phosphatase Total Creatine Kinase CK-MB (Mass) Troponin I NT-Pro-B Natriuret Pep Total Protein Albumin Globulin Albumin/Globulin Ratio Procalcitonin TSH 3rd Generation Arterial Blood Potassium Venous Blood Potassium Urine Color Urine Clarity Urine pH Ur Specific [place] Urine Protein Urine Glucose (UA) Urine Ketones Urine Blood Urine Nitrate Urine Bilirubin Urine Urobilinogen Ur Leukocyte Esterase Urine WBC (Auto) Urine RBC (Auto) Ur Squamous Epith Cells Urine Bacteria Digoxin Urine Opiates Screen Negative Urine Methadone Screen Negative Ur Barbiturates Screen Negative Ur Phencyclidine Scrn Negative Ur Amphetamines Screen Negative U Benzodiazepines Scrn Negative U Oth Cocaine Metabols Negative U Cannabinoids Screen Negative Blood Type Antibody Screen Attending/Attestation - Attestation I have personally seen and examined this patient.: Yes I have fully participated in the care of the patient.: Yes I have reviewed all pertinent clinical information: Yes Notes (Text): This is late computer entry for 04/02/18. Patient seen, examined and case discussed with day-time resident. Please note: I was not formally notified about the admission until 5:05PM on wherein I spoke with the ICU doctor, Dr Myesha Pollack who informed me. I have spoken with the emergency doctor following this conversation given that I had not accepted nor discussed this patient at 4:36PM to my service as indicated in the EMR who in turn apologized and discussed with the case with me formally. I have spoken with the ICU in regards to the patient. Patient admitted directly to the ICU. Patient seen in [facility] Bed 9 in the ICU at 5:55PM after he had received the emergent dialysis catheter by the ICU over the right groin needed to start emergent dialysis. Patient has completed CT head and CT Chest/Abdomen/Pelvis awaiting official reports. Nephrology and infectious disease on board. Please note history is limited. Patient is in a critical state unable to describe what has happened nor discussion review of systems. Resident has spoken with patient's children to obtain as much history as possible. We have also chart reviewed since patient has been previously has been to [facility] in the past. 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 There is a question to whom patient's PMD--Family cannot recall; patient's prior PMD was Dr. Morales who the hospitalist service is covering while he is away until 04/09/18. We will clarify with the family and suggest to Medicine to please call Dr. Morales's office and see if patient is his. Prior doctors involved: HCM: Podiatry: Dr. To /Dr Johnnie Minor Resident has updated the physical exam, assessment/plan upon discussion with me. 72 year old male with a PMHx of arthritis, history of colon polyps, kidney stones, renal insufficiency, glaucoma s/p partial colectomy in 2014 with weakness, fevers for 1 week prior to presentation: Assessment/Plan 1) Severe Sepsis Septic Shock Assessment/Plan * Etiologies: b/l cellulitis over the legs (noted since 2017 available in the EMR), will need to rule out other infectious etiologies * Admitted to the ICU; further management per ICU * Code sepsis: 04/02/18 in the ED * On admission: hypotensive, temp 94 deg, wbc 52, lactate 3.3 * Consult Infectious Disease, Dr Valdez on board * Trend serial serum lactate Q3H per code sepsis protocol * F/U CT chest/abd/pelvis w/o contrast * F/U CT head w/o contrast * F/U C.Diff toxin * F/U Blood Cx, urine Cx, wound Cx * F/U Hep panel * F/U procalcitonin Medications: * Flagyl 500mg IVP Q8H * Meropenem 500mg IVP Q8H * Vancomycin 500mg PO QID * Vancomycin 1g IV QD * NS 500ml/hr 2) Bilateral Lower Cellulitis Assessment/Plan * patient's legs are edematous, erythematous, and weeping and pus-ing * Wound culture ordered of the right leg * Prior hx of cellulitis since 2017 noted in the EMR * F/U xray of LE b/l for consideration of osteomyelitis * Infectious Disease on board * If podiatry consult warranted, please consult Dr. Johnnie Minor/Dr. To who has seen this patient in prior admission 3) Metabolic Encephalopathy Assessment/Plan * Etiology: sepsis, uremia, severe metabolic acidosis * emergent dialysis catheter placed by ICU on 04/02/18 * Nephrology (Dr. Luna) on board-->help appreciated * F/U CT head 4) Acute on Chronic Renal Insufficiency Severe Metabolic Acidosis Hyperkalemia Assessment/Plan * Nephrology (Dr. Luna) on board-->help appreciated * Note: history of nephrolithasis, prior hx of cystoscopy and stent insertion per EMR * On admission BUN 150, Cr 6.2 * In ED, Calcium gluconate 4.65 meq given once, Insulin Regular 10u IV given once, and 2 Liters of IV fluids * Emergent HD through femoral catheter placed by ICU (right groin) on 04/02/18 * Patient is receiving Bicarbonate drip 5) Atrial Fibrillation w RVR Assessment/Plan * Cardiology (Dr. Henriquez) on board-->help appreciated * Patient was diagnosed with new onset atrial fibrillation last admission * It is unclear what medications he is taking at home. patient unable to tell us and family does not know * Unknown if he takes anticoagulation or not * We have order digoxin level as well * Patient seen and evaluated by Dr. Henriquez last admission we will consult himConsult Cardio, Dr Henriquez * F/U Echo * F/U Digoxin level * Hold asa until CT head rules out bleed * F/U hgbA1c, Lipid panel, TSH/Free T4 check for cardiac risk factors given elevated probnp 6) History of colonic polyps History of partial colectecomy Assessment/Plan * unclear why 7) Prior history of incarcerated hernia and small bowel obstruction Assessment/Plan * Noted in the EMR from patient's last hospitalization with Dr. Ceja who performed the surgery 8) Prophylactic care * Until we rule out bleed in CT scan, I will not start chemical anticoagulation for patient safety * Contraindications to SCDS given cellulitis noted on bilateral legs * Wall placed on admission
[2018-04-02 18:40] LABS: VENOUS BLOOD GAS BASE EXCESS -23.8 mmol/L (0.0-2.0); VENOUS BLOOD GAS PCO2 15 mmHg (40-60); VENOUS BLOOD GAS PO2 44 mm/Hg (30-55); VENOUS BLOOD PH 7.07 (7.32-7.43)
--- NOTE | 2018-04-02 19:05 | PCM.SEPTIC ---
<KalinCharly R - Last Filed: 04/02/18 19:02> Sepsis Progress Note - Reassessment Type Date of Evaluation: 04/02/18 Time of Evaluation: 17:30 Reassessment Type: Non-invasive reassessment - Non Invasive Reassessment Were the most recent vital sign reviewed: Yes Vital Sign (Latest): Temp Pulse Resp BP Pulse Ox 94.4 F L 133 H 28 H 100/48 L 98 04/02/18 16:45 04/02/18 17:50 04/02/18 17:50 04/02/18 17:50 04/02/18 17:50 Cardiovascular: Yes: Regular Rate, Rhythm, Tachycardia Respiratory: Yes: Respiratory Distress Capillary Refill: Delayed Pulses: Decreased Radial, Decreased Dorsalis Pedis, Decreased Posterior Tibialis Skin: Dry, Pale <Lisbet Torres V - Last Filed: 04/03/18 02:18> Sepsis Progress Note - Reassessment Type Time of Evaluation: 18:30 - Non Invasive Reassessment Vital Sign (Latest): Temp Pulse Resp BP Pulse Ox 95.7 F L 127 H 23 133/60 100 04/03/18 00:00 04/03/18 01:15 04/03/18 01:15 04/03/18 01:08 04/03/18 01:15 Cardiovascular: Yes: Regular Rate, Rhythm Was a bedside cardiovascular ultrasound performed within 6 hours after the presentation of septic shock: No Was a passive leg raise performed or was a fluid challenge performed within 6 hrs of the initial fluid bolus: Yes Passive Leg Raise Result: Not Applicable Fluid Challenge performed: Yes Attending/Attestation - Attestation I have personally seen and examined this patient.: Yes I have fully participated in the care of the patient.: Yes I have reviewed all pertinent clinical information, including history, physical exam and plan: Yes Notes (Text): This is late computer entry for 04/02/18. Patient was a code sepsis in the ED. Patient had received 2 Liters in the ED. Patient has received 2 IV Abx in the ED which have continued. Lactic acid was high and repeated within 3 hours of protocol. We are awaiting culture results. infectious disease is on the case. Further management per ICU.
--- NOTE | 2018-04-02 19:12 | CP.PCM.CON ---
History of Present Illness - History of Present Illness History of Present Illness: patient seen and examined consult dictated obese malae with hx renal stones,ckd admitted with probale septic shock renal failure acidosis and hyperkaemia hypotensive,arousable but not talking in view of above would start hemodialysis continue to try to obtain hx agree with antibiotics base dose on no renal function case discussed with attending dialysis orders given Past Patient History - Infectious Disease Hx of Infectious Diseases: None - Past Medical History & Family History Past Medical History?: Yes - Past Social History Smoking Status: Former Smoker - CARDIAC Hx Peripheral Edema: Yes - PULMONARY Hx Respiratory Disorders: No - NEUROLOGICAL Hx Neurological Disorder: No - HEENT Hx HEENT Problems: Yes Hx Glaucoma: Yes - RENAL Hx Chronic Kidney Disease: Yes Hx Kidney Stones: Yes - ENDOCRINE/METABOLIC Hx Endocrine Disorders: No - HEMATOLOGICAL/ONCOLOGICAL Hx Blood Disorders: Yes Hx Cancer: Yes (Colon) - INTEGUMENTARY Hx Dermatological Problems: No - MUSCULOSKELETAL/RHEUMATOLOGICAL Hx Arthritis: Yes (FINGERS) Hx Fractures: Yes (left leg as toddler) - GASTROINTESTINAL Hx Gastrointestinal Disorders: Yes Other/Comment: Colon Ca - GENITOURINARY/GYNECOLOGICAL Hx Genitourinary Disorders: Yes Hx Prostate Problems: Yes - PSYCHIATRIC Hx Substance Use: No - SURGICAL HISTORY Hx Surgeries: Yes Other/Comment: Cysto, stent insertion 09/29/15, Colon resction 2010. [facility]/LITHOTRIPSY - ANESTHESIA Hx Anesthesia: Yes Hx Anesthesia Reactions: No Hx Malignant Hyperthermia: No Meds Allergies/Adverse Reactions: Allergies Allergy/AdvReac Type Severity Reaction Status Date / Time cefdinir [From Omnicef] Allergy Verified 10/02/17 11:52 - Medications Medications: Current Medications Sodium Chloride (Sodium Chloride 0.9%) 500 mls @ 500 mls/hr IV .Q1H [facility] Last Admin: 04/02/18 16:24 Dose: 500 mls/hr Vancomycin/Sodium Chloride (Vancomycin 1 Gm/Ns 200 Ml) 1 gm in 200 mls @ 166.7 mls/hr IVPB STAT KARAN PRN Reason: Protocol Stop: 04/07/18 17:01 Last Admin: 04/02/18 18:49 Dose: 166.7 mls/hr Sodium Bicarbonate 150 meq/ (Dextrose) 1,000 mls @ 100 mls/hr IV .Q10H [facility] Last Admin: 04/02/18 17:50 Dose: 100 mls/hr Meropenem 500 mg/ Sodium (Chloride) 100 mls @ 100 mls/hr IVPB Q8 KARAN PRN Reason: Protocol Metronidazole (Flagyl) 500 mg in 100 mls @ 100 mls/hr IVPB Q8 KARAN PRN Reason: Protocol Vancomycin HCl (Vancocin (Oral Or Rectal Use)) 500 mg PO QID KARAN PRN Reason: Protocol Results - Vital Signs Recent Vital Signs: Last Vital Signs Temp 94.4 F L 04/02/18 16:45 Pulse 133 H 04/02/18 17:50 Resp 28 H 04/02/18 17:50 BP 100/48 L 04/02/18 17:50 Pulse Ox 98 04/02/18 17:50 - Labs Result Diagrams: 04/02/18 15:25 04/02/18 16:10 Labs: Laboratory Results - last 24 hr 04/02/18 04/02/18 04/02/18 15:25 15:25 15:30 WBC 52.3 H* D RBC 4.32 L Hgb 13.2 D Hct 41.2 MCV 95.5 H D MCH 30.6 MCHC 32.0 L RDW 15.6 H Plt Count 516 H D MPV 8.7 Neut % (Auto) 96.4 H Lymph % (Auto) 0.7 L [place] % (Auto) 2.3 Eos % (Auto) 0.1 Baso % (Auto) 0.5 Neut # (Auto) 50.4 H Lymph # (Auto) 0.4 L [place] # (Auto) 1.2 H Eos # (Auto) 0.0 Baso # (Auto) 0.3 H Neutrophils % (Manual) 90 H Band Neutrophils % 2 Lymphocytes % (Manual) 1 L Monocytes % (Manual) 4 Metamyelocytes % 1 H Myelocytes % 2 H Toxic Granulation Present Platelet Estimate Increased H Large Platelets Present Poikilocytosis (manual Slight Anisocytosis (manual) Slight Microcytosis (manual) Slight Macrocytosis (manual) Slight PT 13.3 H INR 1.2 APTT 21 pO2 60 H VBG pH 6.87 L* VBG pCO2 17 L* VBG HCO3 1.2 VBG Total CO2 3.6 L VBG O2 Sat (Calc) 90.1 H VBG Base Excess -29.2 L VBG Potassium 11.7 H* Sodium 123.0 L Chloride 99.0 Glucose 202 H Lactate 3.3 H Crit Value Called To 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 budget controller Crit Value Called By Dennis raza md Crit Value Read Back Y Blood Gas Notified Time 1535 Potassium Carbon Dioxide Anion Gap BUN Creatinine Est GFR ( Amer) Est GFR (Non-Af Amer) Random Glucose Lactic Acid Calcium Phosphorus Magnesium Total Bilirubin AST ALT Alkaline Phosphatase Total Creatine Kinase CK-MB (Mass) Troponin I NT-Pro-B Natriuret Pep Total Protein Albumin Globulin Albumin/Globulin Ratio Venous Blood Potassium 11.7 H* Urine Color Urine Clarity Urine pH Ur Specific [place] Urine Protein Urine Glucose (UA) Urine Ketones Urine Blood Urine Nitrate Urine Bilirubin Urine Urobilinogen Ur Leukocyte Esterase Urine WBC (Auto) Urine RBC (Auto) Ur Squamous Epith Cells Urine Bacteria 04/02/18 04/02/18 04/02/18 16:03 16:10 18:08 WBC RBC Hgb Hct MCV MCH MCHC RDW Plt Count MPV Neut % (Auto) Lymph % (Auto) [place] % (Auto) Eos % (Auto) Baso % (Auto) Neut # (Auto) Lymph # (Auto) [place] # (Auto) Eos # (Auto) Baso # (Auto) Neutrophils % (Manual) Band Neutrophils % Lymphocytes % (Manual) Monocytes % (Manual) Metamyelocytes % Myelocytes % Toxic Granulation Platelet Estimate Large Platelets Poikilocytosis (manual Anisocytosis (manual) Microcytosis (manual) Macrocytosis (manual) PT INR APTT pO2 VBG pH VBG pCO2 VBG HCO3 VBG Total CO2 VBG O2 Sat (Calc) VBG Base Excess VBG Potassium Sodium 131 L Chloride 109 H Glucose Lactate Crit Value Called To Crit Value Called By Crit Value Read Back Blood Gas Notified Time Potassium 7.1 H* D Carbon Dioxide < 5 L* D Anion Gap 24 H BUN 150 H* D Creatinine 6.2 H Est GFR ( Amer) 11 Est GFR (Non-Af Amer) 9 Random Glucose 176 H Lactic Acid Calcium 7.0 L Phosphorus 12.4 H Magnesium 2.4 H Total Bilirubin 0.8 AST 25 ALT 17 L Alkaline Phosphatase 95 Total Creatine Kinase 476 H CK-MB (Mass) 12.1 H Troponin I < 0.0120 < 0.0120 NT-Pro-B Natriuret Pep 5000 H Total Protein 5.9 L Albumin 2.9 L Globulin 3.1 Albumin/Globulin Ratio 0.9 L Venous Blood Potassium Urine Color Yellow Urine Clarity Hazy Urine pH 5.0 Ur Specific [place] 1.014 Urine Protein Negative Urine Glucose (UA) Normal Urine Ketones Negative Urine Blood 1+ H Urine Nitrate Negative Urine Bilirubin Negative Urine Urobilinogen Normal Ur Leukocyte Esterase 1+ H Urine WBC (Auto) 7 H Urine RBC (Auto) 7 H Ur Squamous Epith Cells 1 Urine Bacteria Rare 04/02/18 04/02/18 18:08 18:36 WBC RBC Hgb Hct MCV MCH MCHC RDW Plt Count MPV Neut % (Auto) Lymph % (Auto) [place] % (Auto) Eos % (Auto) Baso % (Auto) Neut # (Auto) Lymph # (Auto) [place] # (Auto) Eos # (Auto) Baso # (Auto) Neutrophils % (Manual) Band Neutrophils % Lymphocytes % (Manual) Monocytes % (Manual) Metamyelocytes % Myelocytes % Toxic Granulation Platelet Estimate Large Platelets Poikilocytosis (manual Anisocytosis (manual) Microcytosis (manual) Macrocytosis (manual) PT INR APTT pO2 44 VBG pH 7.07 L* VBG pCO2 15 L* VBG HCO3 5.3 VBG Total CO2 4.8 L VBG O2 Sat (Calc) 82.4 H VBG Base Excess -23.8 L VBG Potassium 4.1 Sodium 135.0 Chloride 114.0 H Glucose 108 Lactate 2.3 H Crit Value Called To [facility] agricultural economist Crit Value Called By Ghazala Crit Value Read Back Y Blood Gas Notified Time 1840 Potassium Carbon Dioxide Anion Gap BUN Creatinine Est GFR ( Amer) Est GFR (Non-Af Amer) Random Glucose Lactic Acid 3.1 H Calcium Phosphorus Magnesium Total Bilirubin AST ALT Alkaline Phosphatase Total Creatine Kinase CK-MB (Mass) Troponin I NT-Pro-B Natriuret Pep Total Protein Albumin Globulin Albumin/Globulin Ratio Venous Blood Potassium 4.1 Urine Color Urine Clarity Urine pH Ur Specific [place] Urine Protein Urine Glucose (UA) Urine Ketones Urine Blood Urine Nitrate Urine Bilirubin Urine Urobilinogen Ur Leukocyte Esterase Urine WBC (Auto) Urine RBC (Auto) Ur Squamous Epith Cells Urine Bacteria
[2018-04-02 19:29] LABS: B-TYPE NATRIURETIC PEPTIDE 5290 pg/mL (0-900)
[2018-04-02 20:44] LABS: ARTERIAL BLOOD GAS HCO3 12.3 mmol/L (21-28); ARTERIAL BLOOD GAS PCO2 16 mm/Hg (35-45); ARTERIAL BLOOD GAS PH 7.29 (7.35-7.45); ARTERIAL BLOOD GAS PO2 149 mm/Hg (80-100); ARTERIAL BLOOD GAS TCO2 8.2 mmol/L (22-28)
[2018-04-02 20:53] LABS: VENOUS BLOOD GAS BASE EXCESS -14.2 mmol/L (0.0-2.0); VENOUS BLOOD GAS PCO2 27 mmHg (40-60); VENOUS BLOOD GAS PO2 38 mm/Hg (30-55); VENOUS BLOOD PH 7.24 (7.32-7.43)
[2018-04-02] MEDS ORDERED: Calcium Chloride 1000 mg/10 ml Syringe IV ONE (20:59)
[2018-04-02 21:05] LABS: CALCIUM 9.3 mg/dl (8.6-10.4)
[2018-04-02] MEDS: Magnesium Sulfate 1 gm in D5W 1 GM/100 ML BAG IVPB SCH ×2 (21:15→21:40)
[2018-04-02] MEDS ORDERED: Amiodarone 150mg/3 ml vial IV ONE ×2 (21:30→23:15)
--- NOTE | 2018-04-02 21:48 | CP.PCM.CON ---
History of Present Illness - History of Present Illness History of Present Illness: CC: A Fib with RVR HPI: Mr Mcconnell is a 72 year old male with a PMHx of arthritis, history of colon polyps, kidney stones, renal insufficiency, glaucoma s/p partial colectomy in 2014 who was brought by ambulance because he fell out of his chair while at home. History collected from son who lives with patient. Son stated he noticed his father feeling weak for the past 1 week - patient refused to come to hospital soon. Per son, in past 1 week patient stated he felt hot and cold at times but temperature was never checked. Patient also had a loss of appetite for past 1 week with constipation. Yesterday patient's breathing became labored - son wanted to bring patient to hospital but patient refused. Today breathing worsened and patient fell out of his chair due to weakness - son called 911. Normally patient ambulates and performs ADLs on his own. Son does not believe patient had specific symptoms such as chest pain, abdominal pain, dysuria as patient never endorsed any of that to the son. 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 [employer]; lives with son Duke Wall, son: [phone] [place], daughter: [phone] Code Status: Full Code Present on Admission - Present on Admission Any Indicators Present on Admission: No Review of Systems - Review of Systems Systems not reviewed;Unavailable: Altered Mental Status Review of Systems: Per son: - Constitutional Constitutional: Chills, Fever, Lethargy, Malaise - Cardiovascular Cardiovascular: absent: Chest Pain - Respiratory Respiratory: Dyspnea - Gastrointestinal Gastrointestinal: absent: Abdominal Pain - Genitourinary Genitourinary: absent: Dysuria Physical Exam - Constitutional Appears: In Acute Distress - Head Exam Head Exam: ATRAUMATIC, NORMAL INSPECTION - Eye Exam Eye Exam: EOMI Pupil Exam: PERRL - ENT Exam ENT Exam: Mucous Membranes Dry - Neck Exam Neck exam: Positive for: Normal Inspection - Respiratory Exam Respiratory Exam: Clear to Auscultation Bilateral, NORMAL BREATHING PATTERN. absent: Rales, Rhonchi, Wheezes - Cardiovascular Exam Cardiovascular Exam: Tachycardia, +S1, +S2. absent: JVD - GI/Abdominal Exam GI & Abdominal Exam: Diminished Bowel Sounds, Soft - Extremities Exam Extremities exam: Negative for: normal capillary refill - Neurological Exam Neurological exam: Altered Past Patient History - Infectious Disease Hx of Infectious Diseases: None - Past Medical History & Family History Past Medical History?: Yes - Past Social History Smoking Status: Former Smoker - CARDIAC Hx Peripheral Edema: Yes - PULMONARY Hx Respiratory Disorders: No - NEUROLOGICAL Hx Neurological Disorder: No - HEENT Hx HEENT Problems: Yes Hx Glaucoma: Yes - RENAL Hx Chronic Kidney Disease: Yes Hx Kidney Stones: Yes - ENDOCRINE/METABOLIC Hx Endocrine Disorders: No - HEMATOLOGICAL/ONCOLOGICAL Hx Blood Disorders: Yes Hx Cancer: Yes (Colon) - INTEGUMENTARY Hx Dermatological Problems: No - MUSCULOSKELETAL/RHEUMATOLOGICAL Hx Arthritis: Yes (FINGERS) Hx Fractures: Yes (left leg as toddler) - GASTROINTESTINAL Hx Gastrointestinal Disorders: Yes Other/Comment: Colon Ca - GENITOURINARY/GYNECOLOGICAL Hx Genitourinary Disorders: Yes Hx Prostate Problems: Yes - PSYCHIATRIC Hx Substance Use: No - SURGICAL HISTORY Hx Surgeries: Yes Other/Comment: Cysto, stent insertion 09/29/15, Colon resction 2010. [facility]/LITHOTRIPSY - ANESTHESIA Hx Anesthesia: Yes Hx Anesthesia Reactions: No Hx Malignant Hyperthermia: No Meds Allergies/Adverse Reactions: Allergies Allergy/AdvReac Type Severity Reaction Status Date / Time cefdinir [From Omnicef] Allergy Verified 10/02/17 11:52 - Medications Medications: Current Medications Vancomycin/Sodium Chloride (Vancomycin 1 Gm/Ns 200 Ml) 1 gm in 200 mls @ 166.7 mls/hr IVPB STAT KARAN PRN Reason: Protocol Stop: 04/07/18 17:01 Last Admin: 04/02/18 18:49 Dose: 166.7 mls/hr Sodium Bicarbonate 150 meq/ (Dextrose) 1,000 mls @ 100 mls/hr IV .Q10H KARAN Last Admin: 04/02/18 17:50 Dose: 100 mls/hr Meropenem 500 mg/ Sodium (Chloride) 100 mls @ 100 mls/hr IVPB Q8 KARAN PRN Reason: Protocol Metronidazole (Flagyl) 500 mg in 100 mls @ 100 mls/hr IVPB Q8 KARAN PRN Reason: Protocol Norepinephrine Bitartrate 8 mg (/ Dextrose) 258 mls @ 7.74 mls/hr IV .Q24H PRN ; Protocol; 4 MCG/MIN PRN Reason: TITRATE PER MD ORDER Last Admin: 04/02/18 20:09 Dose: 4 mcg/min, 7.74 mls/hr Potassium Chloride (Potassium Chloride 20 Meq/100 Ml) 20 meq in 100 mls @ 50 mls/hr IVPB ONCE ONE Stop: 04/02/18 22:46 Amiodarone HCl 900 mg/ (Dextrose) 500 mls @ 33.33 mls/hr IV .Q15H1M KARAN; 1 MG/ MIN PRN Reason: Protocol Stop: 04/03/18 03:30 Last Admin: 04/02/18 21:40 Dose: 33.33 mls/hr Magnesium Sulfate/Dextrose (Magnesium Sulfate 1 Gm/100 Ml D5w) 1 gm in 100 mls @ 300 mls/hr IVPB Q30M KARAN Stop: 04/02/18 22:04 Amiodarone HCl 900 mg/ (Dextrose) 500 mls @ 16.66 mls/hr IV .Q24H KARAN; 0.5 MG/ MIN PRN Reason: Protocol Stop: 04/03/18 21:30 Vancomycin HCl (Vancocin (Oral Or Rectal Use)) 500 mg PO QID KARAN PRN Reason: Protocol Results - Vital Signs Recent Vital Signs: Last Vital Signs Temp 94.6 F L 04/02/18 19:10 Pulse 142 H 04/02/18 21:40 Resp 28 H 04/02/18 21:40 BP 81/50 L 04/02/18 21:40 Pulse Ox 99 04/02/18 21:40 - Labs Result Diagrams: 04/02/18 15:25 04/02/18 20:50 Labs: Laboratory Results - last 24 hr 04/02/18 04/02/18 04/02/18 15:25 15:25 15:30 WBC 52.3 H* D RBC 4.32 L Hgb 13.2 D Hct 41.2 MCV 95.5 H D MCH 30.6 MCHC 32.0 L RDW 15.6 H Plt Count 516 H D MPV 8.7 Neut % (Auto) 96.4 H Lymph % (Auto) 0.7 L Bacon % (Auto) 2.3 Eos % (Auto) 0.1 Baso % (Auto) 0.5 Neut # (Auto) 50.4 H Lymph # (Auto) 0.4 L Bacon # (Auto) 1.2 H Eos # (Auto) 0.0 Baso # (Auto) 0.3 H Neutrophils % (Manual) 90 H Band Neutrophils % 2 Lymphocytes % (Manual) 1 L Monocytes % (Manual) 4 Metamyelocytes % 1 H Myelocytes % 2 H Toxic Granulation Present Platelet Estimate Increased H Large Platelets Present Poikilocytosis (manual Slight Anisocytosis (manual) Slight Microcytosis (manual) Slight Macrocytosis (manual) Slight PT 13.3 H INR 1.2 APTT 21 Puncture Site pCO2 pO2 60 H HCO3 ABG pH ABG Total CO2 ABG O2 Saturation ABG Base Excess [place] Test ABG Potassium VBG pH 6.87 L* VBG pCO2 17 L* VBG HCO3 1.2 VBG Total CO2 3.6 L VBG O2 Sat (Calc) 90.1 H VBG Base Excess -29.2 L VBG Potassium 11.7 H* A-a O2 Difference Respiratory Index Sodium 123.0 L Chloride 99.0 Glucose 202 H Lactate 3.3 H Liter Flow FiO2 Crit Value Called 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 Crit Value Called By Dennis raza md Crit Value Read Back Y Blood Gas Notified Time 1535 Potassium Carbon Dioxide Anion Gap BUN Creatinine Est GFR ( Amer) Est GFR (Non-Af Amer) POC Glucose (mg/dL) Random Glucose Lactic Acid Calcium Phosphorus Magnesium Total Bilirubin AST ALT Alkaline Phosphatase Total Creatine Kinase CK-MB (Mass) Troponin I NT-Pro-B Natriuret Pep Total Protein Albumin Globulin Albumin/Globulin Ratio Procalcitonin TSH 3rd Generation Arterial Blood Potassium Venous Blood Potassium 11.7 H* Urine Color Urine Clarity Urine pH Ur Specific [place] Urine Protein Urine Glucose (UA) Urine Ketones Urine Blood Urine Nitrate Urine Bilirubin Urine Urobilinogen Ur Leukocyte Esterase Urine WBC (Auto) Urine RBC (Auto) Ur Squamous Epith Cells Urine Bacteria Digoxin 04/02/18 04/02/18 04/02/18 16:03 16:10 18:08 WBC RBC Hgb Hct MCV MCH MCHC RDW Plt Count MPV Neut % (Auto) Lymph % (Auto) Bacon % (Auto) Eos % (Auto) Baso % (Auto) Neut # (Auto) Lymph # (Auto) Bacon # (Auto) Eos # (Auto) Baso # (Auto) Neutrophils % (Manual) Band Neutrophils % Lymphocytes % (Manual) Monocytes % (Manual) Metamyelocytes % Myelocytes % Toxic Granulation Platelet Estimate Large Platelets Poikilocytosis (manual Anisocytosis (manual) Microcytosis (manual) Macrocytosis (manual) PT INR APTT Puncture Site pCO2 pO2 HCO3 ABG pH ABG Total CO2 ABG O2 Saturation ABG Base Excess [place] Test ABG Potassium VBG pH VBG pCO2 VBG HCO3 VBG Total CO2 VBG O2 Sat (Calc) VBG Base Excess VBG Potassium A-a O2 Difference Respiratory Index Sodium 131 L Chloride 109 H Glucose Lactate Liter Flow FiO2 Crit Value Called To Crit Value Called By Crit Value Read Back Blood Gas Notified Time Potassium 7.1 H* D Carbon Dioxide < 5 L* D Anion Gap 24 H BUN 150 H* D Creatinine 6.2 H Est GFR ( Amer) 11 Est GFR (Non-Af Amer) 9 POC Glucose (mg/dL) Random Glucose 176 H Lactic Acid Calcium 7.0 L Phosphorus 12.4 H Magnesium 2.4 H Total Bilirubin 0.8 AST 25 ALT 17 L Alkaline Phosphatase 95 Total Creatine Kinase 476 H CK-MB (Mass) 12.1 H Troponin I < 0.0120 < 0.0120 NT-Pro-B Natriuret Pep 5000 H 5290 H Total Protein 5.9 L Albumin 2.9 L Globulin 3.1 Albumin/Globulin Ratio 0.9 L Procalcitonin TSH 3rd Generation 2.67 Arterial Blood Potassium Venous Blood Potassium Urine Color Yellow Urine Clarity Hazy Urine pH 5.0 Ur Specific [place] 1.014 Urine Protein Negative Urine Glucose (UA) Normal Urine Ketones Negative Urine Blood 1+ H Urine Nitrate Negative Urine Bilirubin Negative Urine Urobilinogen Normal Ur Leukocyte Esterase 1+ H Urine WBC (Auto) 7 H Urine RBC (Auto) 7 H Ur Squamous Epith Cells 1 Urine Bacteria Rare Digoxin 04/02/18 04/02/18 04/02/18 18:08 18:36 18:51 WBC RBC Hgb Hct MCV MCH MCHC RDW Plt Count MPV Neut % (Auto) Lymph % (Auto) Bacon % (Auto) Eos % (Auto) Baso % (Auto) Neut # (Auto) Lymph # (Auto) Bacon # (Auto) Eos # (Auto) Baso # (Auto) Neutrophils % (Manual) Band Neutrophils % Lymphocytes % (Manual) Monocytes % (Manual) Metamyelocytes % Myelocytes % Toxic Granulation Platelet Estimate Large Platelets Poikilocytosis (manual Anisocytosis (manual) Microcytosis (manual) Macrocytosis (manual) PT INR APTT Puncture Site pCO2 pO2 44 HCO3 ABG pH ABG Total CO2 ABG O2 Saturation ABG Base Excess [place] Test ABG Potassium VBG pH 7.07 L* VBG pCO2 15 L* VBG HCO3 5.3 VBG Total CO2 4.8 L VBG O2 Sat (Calc) 82.4 H VBG Base Excess -23.8 L VBG Potassium 4.1 A-a O2 Difference Respiratory Index Sodium 135.0 Chloride 114.0 H Glucose 108 Lactate 2.3 H Liter Flow FiO2 Crit Value Called To [facility] 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 Crit Value Called By Ghazala Crit Value Read Back Y Blood Gas Notified Time 1840 Potassium Carbon Dioxide Anion Gap BUN Creatinine Est GFR ( Amer) Est GFR (Non-Af Amer) POC Glucose (mg/dL) Random Glucose Lactic Acid 3.1 H Calcium Phosphorus Magnesium Total Bilirubin AST ALT Alkaline Phosphatase Total Creatine Kinase CK-MB (Mass) Troponin I NT-Pro-B Natriuret Pep Total Protein Albumin Globulin Albumin/Globulin Ratio Procalcitonin 6.48 H TSH 3rd Generation Arterial Blood Potassium Venous Blood Potassium 4.1 Urine Color Urine Clarity Urine pH Ur Specific [place] Urine Protein Urine Glucose (UA) Urine Ketones Urine Blood Urine Nitrate Urine Bilirubin Urine Urobilinogen Ur Leukocyte Esterase Urine WBC (Auto) Urine RBC (Auto) Ur Squamous Epith Cells Urine Bacteria Digoxin 04/02/18 04/02/18 04/02/18 20:24 20:40 20:49 WBC RBC Hgb Hct MCV MCH MCHC RDW Plt Count MPV Neut % (Auto) Lymph % (Auto) [place] % (Auto) Eos % (Auto) Baso % (Auto) Neut # (Auto) Lymph # (Auto) [place] # (Auto) Eos # (Auto) Baso # (Auto) Neutrophils % (Manual) Band Neutrophils % Lymphocytes % (Manual) Monocytes % (Manual) Metamyelocytes % Myelocytes % Toxic Granulation Platelet Estimate Large Platelets Poikilocytosis (manual Anisocytosis (manual) Microcytosis (manual) Macrocytosis (manual) PT INR APTT Puncture Site Rra pCO2 16 L* pO2 149 H 38 HCO3 12.3 L ABG pH 7.29 L ABG Total CO2 8.2 L ABG O2 Saturation 98.0 ABG Base Excess -16.3 L [place] Test Na ABG Potassium 2.3 L* VBG pH 7.24 L VBG pCO2 27 L VBG HCO3 12.9 VBG Total CO2 12.4 L VBG O2 Sat (Calc) 76.8 H VBG Base Excess -14.2 L VBG Potassium 4.0 A-a O2 Difference 45.0 Respiratory Index 0.3 Sodium 146.0 137.0 Chloride 124.0 H 108.0 H Glucose 100 125 H Lactate 2.5 H 4.4 H* Liter Flow 3.0 FiO2 30.0 Crit Value Called To Ranjeet Pollack md Crit Value Called By Ghazala Vivar Crit Value Read Back Y Y Blood Gas Notified Time 2042 2052 Potassium Carbon Dioxide Anion Gap BUN Creatinine Est GFR ( Amer) Est GFR (Non-Af Amer) POC Glucose (mg/dL) 137 H Random Glucose Lactic Acid Calcium Phosphorus Magnesium Total Bilirubin AST ALT Alkaline Phosphatase Total Creatine Kinase CK-MB (Mass) Troponin I NT-Pro-B Natriuret Pep Total Protein Albumin Globulin Albumin/Globulin Ratio Procalcitonin TSH 3rd Generation Arterial Blood Potassium 2.3 L* Venous Blood Potassium 4.0 Urine Color Urine Clarity Urine pH Ur Specific [place] Urine Protein Urine Glucose (UA) Urine Ketones Urine Blood Urine Nitrate Urine Bilirubin Urine Urobilinogen Ur Leukocyte Esterase Urine WBC (Auto) Urine RBC (Auto) Ur Squamous Epith Cells Urine Bacteria Digoxin 04/02/18 04/02/18 04/02/18 20:50 21:16 21:16 WBC RBC Hgb Hct MCV MCH MCHC RDW Plt Count MPV Neut % (Auto) Lymph % (Auto) [place] % (Auto) Eos % (Auto) Baso % (Auto) Neut # (Auto) Lymph # (Auto) [place] # (Auto) Eos # (Auto) Baso # (Auto) Neutrophils % (Manual) Band Neutrophils % Lymphocytes % (Manual) Monocytes % (Manual) Metamyelocytes % Myelocytes % Toxic Granulation Platelet Estimate Large Platelets Poikilocytosis (manual Anisocytosis (manual) Microcytosis (manual) Macrocytosis (manual) PT INR APTT Puncture Site pCO2 pO2 HCO3 ABG pH ABG Total CO2 ABG O2 Saturation ABG Base Excess [place] Test ABG Potassium VBG pH VBG pCO2 VBG HCO3 VBG Total CO2 VBG O2 Sat (Calc) VBG Base Excess VBG Potassium A-a O2 Difference Respiratory Index Sodium 141 Chloride 111 H Glucose Lactate Liter Flow FiO2 Crit Value Called To Crit Value Called By Crit Value Read Back Blood Gas Notified Time Potassium 4.1 Carbon Dioxide 11 L* D Anion Gap 23 H BUN 116 H* D Creatinine 4.7 H Est GFR ( Amer) 15 Est GFR (Non-Af Amer) 12 POC Glucose (mg/dL) Random Glucose 126 H Lactic Acid 4.1 H* Calcium 9.3 Phosphorus 8.1 H Magnesium 1.9 Total Bilirubin AST ALT Alkaline Phosphatase Total Creatine Kinase CK-MB (Mass) Troponin I NT-Pro-B Natriuret Pep Total Protein Albumin Globulin Albumin/Globulin Ratio Procalcitonin TSH 3rd Generation Arterial Blood Potassium Venous Blood Potassium Urine Color Urine Clarity Urine pH Ur Specific [place] Urine Protein Urine Glucose (UA) Urine Ketones Urine Blood Urine Nitrate Urine Bilirubin Urine Urobilinogen Ur Leukocyte Esterase Urine WBC (Auto) Urine RBC (Auto) Ur Squamous Epith Cells Urine Bacteria Digoxin < 0.4 L Assessment & Plan - Assessment and Plan (Free Text) Assessment: 72 year old male with a PMHx of arthritis, history of colon polyps, kidney stones, renal insufficiency, glaucoma s/p partial colectomy in 2014 with weakness, fevers for 1 week prior to presentation: SEVERE SEPSIS On admission: hypotensive, temp 94 deg, wbc 52, lactate 3.3 Consult Infectious Disease, Dr Courtney Buchanan serial serum lactate F/U CT chest/abd/pelvis w/o contrast F/U CT head w/o contrast F/U C.Diff toxin F/U Blood Cx, urine Cx, would Cx F/U Hep panel F/U procalcitonin Medications: Flagyl 500mg IVP Q8H Meropenem 500mg IVP Q8H Vancomycin 500mg PO QID Vancomycin 1g IV QD NS 500ml/hr LOWER EXTREMITY CELLULITS BILATERALLY F/U wound Cx of right leg Prior hx of cellulitis since 2017 Wound care center/Hyperbaric consult F/U xray of LE b/l METABOLIC ENCEPHALOPATHY Etiology: sepsis, uremia, severe metabolic acidosis emergent dialysis catheter placed by ICU Nephrology on board F/U CT head ACUTE RENAL FAILURE 2/2 to end organ damage from severe sepsis On admission BUN 150, Cr 6.2 Consult nephrology, Dr Luna Emergent HD through femoral catheter AFIB W/ RVR Consult Cardio, Dr Henriquez F/U Echo F/U Digoxin level Hold asa until CT head rules out bleed F/U hgbA1c, Lipid panel, TSH/Free T4 HYPERKALEMIC 2/2 to cell necrosis from poor tissue perfusion in setting of severe sepsis On admission: potassium 7.1 F/U serial troponins Calcium gluconate 4.65 meq given once Insulin Regular 10u IV given once ACIDOTIC Ph on admission: 6.87 Likely metabolic given elevated lactate Bicarb 1 amp given once Dextrose 5% with Bicarb 50 meq @ 100ml/hr ABNORMAL URINANALYSIS UA on admission: 1+ leuk esterase, wbc, 1+ blood LOWER EXTREMITY CELLULITS BILATERALLY F/U wound Cx of right leg Prior hx of cellulitis since 2017 Wound care center/Hyperbaric consult F/U xray of LE b/l ELEVATED PROBNP On admission: Pro-bnp 5000 ARF possibly a contributing factor F/U Echo Echo 08/2017: * Difficult study. EF 65%. Diastolic filling pressures normal. Aortic valve cannot comment. Poor study. PROPHYLAXIS SCDs contraindicated due to LE cellultis Original Note: Patient A Fib RVR most likely secondary to sepsis, vasodilation and hypovelemia rather than other way around Aggressive hydration (ECHO 08/26: EF 65%), Phenylephrine drip and sepsis management may bring down the heart rate Manage electrolyte issues If no response could consider cardioversion If CT head negative can fully anticoagulate the patient
[2018-04-02] MEDS ORDERED: Digoxin 500 mcg/2ml (0.5 mg/2ml) Inj IVP ONE (22:11)
[2018-04-02] MEDS ORDERED: Verapamil 2 ML ONE (22:27)
--- NOTE | 2018-04-02 22:32 | PCM.PROC ---
Procedures Attestation:: I certify that I have explained the specified Operation(s) or Procedure(s), risks, benefits and reasonable alternatives to the Patient and/or other person responsible. The opportunity was given to ask questions and all questions answered - Central Line Placement Right Femoral Hemodialysis Access Aseptic technique was employed throughout the procedure: Full sterile barriers ( mask, hair cover, sterile gown, sterile gloves), Chloraprep Antiseptic: 2 minute prep for Femoral CVP Time Out Performed: Yes Pt. Placed on Pulse Ox Monitor: Yes Central Line Prep: Chlorhexidine-Alcohol Combination Local Anesthesia Used: Lidocaine 1% Amount of Anesthesia Used (mls): 5 Ultrasound Used for Placement: Yes Central Line Lumen Inserted: triple Central Line Length: 20 cm Post Procedure: Sutured in Place, Good Blood Return, All Ports Aspirated, Flushed, Capped, Sterile Dressing Applied Secured by: Suture Post procedure dressing: Gauze, Clear vapor permeable, Chlorhexidine disc ( Biopatch) Post Procedure X-Ray: No Patient Tolerated Procedure: Well Immediate Complications: None
[2018-04-02 22:37] LABS: BASO % 0.1 % (0.0-2.0); HEMOGLOBIN 11.5 g/dL (12.0-18.0); LYMPH # 0.2 K/uL (1.0-4.3); LYMPH % 0.8 % (20.0-40.0); MEAN CORPUSCULAR HEMOGLOBIN 30.9 pg (27.0-31.0); MEAN CORPUSCULAR HGB CONC 33.6 g/dL (33.0-37.0); MEAN PLATELET VOLUME 8.2 fL (7.2-11.7); MONO # 0.3 K/uL (0.0-0.8); MONO % 1.5 % (0.0-10.0); NEUT # 22.1 K/uL (1.8-7.0); NEUT % 97.6 % (50.0-75.0); NRBC % 0.1 % (0.0-2.0); RBC 3.73 Mil/uL (4.40-5.90); RED CELL DISTRIBUTION WIDTH 14.6 % (11.5-14.5)
[2018-04-02 22:38] LABS: PLATELET COUNT 312 K/uL (130-400); WHITE BLOOD COUNT 22.6 K/uL (4.8-10.8)
[2018-04-02 22:41] VITALS: PULSE 143
[2018-04-02] MEDS: metroNIDAZOLE IV 500 mg/100 ml 500 MG/100 ML BAG IVPB SCH (22:45)
[2018-04-02] MEDS: Vancomycin 125 MG/5 ML SOLN (ORAL/RECTAL) PO SCH (22:45)
[2018-04-02 22:48] LABS: ARTERIAL BLOOD GAS HCO3 15.3 mmol/L (21-28); ARTERIAL BLOOD GAS O2 SAT 40.2 % (95-98); ARTERIAL BLOOD GAS PCO2 31 mm/Hg (35-45); ARTERIAL BLOOD GAS PO2 20 mm/Hg (80-100); ARTERIAL BLOOD GAS TCO2 16.3 mmol/L (22-28)
[2018-04-02] MEDS ORDERED: Phenylephrine 30 MG in Dextrose 5% In Water 250 ML IV PRN (22:53)
[2018-04-02 22:56] LABS: ANISOCYTOSIS SLIGHT; BANDS 12 % (0-2); MONOCYTE 2 % (0-10); NEUTROPHIL 86 % (50-75); PLATELET ESTIMATE NORMAL (NORMAL); TOTAL CELLS COUNTED 100
[2018-04-02 22:57] LABS: HYPOCHROMIC SLIGHT; LARGE PLATELETS PRESENT; MICROCYTOSIS SLIGHT; POIKILOCYTOSIS SLIGHT; TOXIC GRANULATION PRESENT
[2018-04-02 22:58] LABS: BURR CELLS SLIGHT; GIANT PLATELETS PRESENT; POLYCHROMIC SLIGHT
[2018-04-02] MEDS: Vasopressin 40 UNITS in Dextrose 5% In Water 38 ML IV SCH (23:23)
[2018-04-02] MEDS: Sodium Bicarbonate 8.4% 150 MEQ in Dextrose 5% In Water 850 ML IV SCH (23:30)
[2018-04-02] MEDS: Sodium Chloride 0.9% 1,000 ML IV ONE ×3 (23:33→23:58)
[2018-04-02] MEDS: Verapamil 40 MG in Sodium Chloride 0.9% 84 ML IV PRN (23:50)
[2018-04-03] MEDS: Sodium Chloride 0.9% 1,000 ML IV ONE
--- NOTE | 2018-04-03 00:04 | CON ---
DATE: 04/02/2018 ATTENDING PHYSICIAN: Lisbet Torres DO HISTORY OF PRESENT ILLNESS: Mr. Mcconnell is a 72-year-old male who has been seen for renal failure. Mr. Mcconnell was not answering questions, and the history is obtained from the records. Mr. Mcconnell has a history of colonic polyps, abdominal surgery, kidney stones, and leg ulcers with edema who came to the emergency room today confused. He apparently has been "sick" for the last several days with symptomatology including watery diarrhea. He was also described as feeling weak, hot and cold at times, loss of appetite with apparent constipation. On the day prior to admission, he became short of breath. He fell and was brought to the emergency room and admitted. His white count was 52,300, hemoglobin 13.2, hematocrit 41.2, platelet count 516,000. Venous pH of 6.87 with a pO2 of 60 and a pCO2 of 17. Sodium was 131, potassium 7.1, chloride 109, CO2 less than 5, BUN 150, creatinine 6.2. Lactic acid 3.1, calcium 7, magnesium 2.4. Total bilirubin 0.8, AST of 25, ALT of 17, alkaline phosphatase of 95, total CPK of 476, CPK MB of 12.1, troponin of less than 0.120, albumin of 2.9. Urine protein was negative. Urine blood was 1+. PAST MEDICAL HISTORY: Please see the above. Also history of renal insufficiency, although the baseline creatinine is unknown, glaucoma, status post partial colectomy. ALLERGIES: HE IS ALLERGIC TO CEFDINIR. He has been admitted to [facility]. MEDICATIONS: His medications at home are not known. At present, he is on vancomycin, sodium bicarbonate IV, Flagyl, and meropenem. SOCIAL HISTORY: He is a former smoker. He quit two years ago. Daily drinker in the past. There is no mention of drug abuse. FAMILY HISTORY: Not available. REVIEW OF SYSTEMS: Please see the above. PHYSICAL EXAMINATION: GENERAL: He was an obese male, arousable, but fell back to sleep and did not answer any questions and did not follow any command. VITAL SIGNS: His temperature was 94.4. His pulse was 133. His blood pressure was 100/48. NECK: There was no jugular venous distention at 10 degrees. LUNGS: Clear. HEART: The heart rhythm was regular. ABDOMEN: Obese, dull, and nontender. A Wall was in place. EXTREMITIES: His legs were swollen with erythematous and lichenified changes. IMPRESSION AND PLAN: Acute kidney injury probably secondary to sepsis, history of chronic kidney disease, renal calculi, obesity. In view of marked acidosis, hyperkalemia, abnormal renal function, would start hemodialysis. Continue try to obtain further history. Agree with antibiotics with base doses on zero renal function. Thank you for your kind referral. We will continue to follow with you. Troy Harmon MD
--- NOTE | 2018-04-03 00:17 | CP.PCM.CON ---
History of Present Illness - History of Present Illness History of Present Illness: 72 y/o male with PMHx of arthritis, history of colon polyps, kidney stones, renal insufficiency, glaucoma s/p partial colectomy brought by EMS as aptient fell out of his chair. per sons, patient refused to come to hospital previously (+)feeling hot (+)poor appetite (+)SOB Patient has severe renal/uremic encephalopathy. 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 [employer]; lives with son [place] Review of Systems - Review of Systems Review of Systems: limited ROS as aptient was in uremic encephalopathy Past Patient History - Infectious Disease Hx of Infectious Diseases: None - Past Medical History & Family History Past Medical History?: Yes - Past Social History Smoking Status: Former Smoker - CARDIAC Hx Peripheral Edema: Yes - PULMONARY Hx Respiratory Disorders: No - NEUROLOGICAL Hx Neurological Disorder: No - HEENT Hx HEENT Problems: Yes Hx Glaucoma: Yes - RENAL Hx Chronic Kidney Disease: Yes Hx Kidney Stones: Yes - ENDOCRINE/METABOLIC Hx Endocrine Disorders: No - HEMATOLOGICAL/ONCOLOGICAL Hx Blood Disorders: Yes Hx Cancer: Yes (Colon) - INTEGUMENTARY Hx Dermatological Problems: No - MUSCULOSKELETAL/RHEUMATOLOGICAL Hx Arthritis: Yes (FINGERS) Hx Fractures: Yes (left leg as toddler) - GASTROINTESTINAL Hx Gastrointestinal Disorders: Yes Other/Comment: Colon Ca - GENITOURINARY/GYNECOLOGICAL Hx Genitourinary Disorders: Yes Hx Prostate Problems: Yes - PSYCHIATRIC Hx Substance Use: No - SURGICAL HISTORY Hx Surgeries: Yes Other/Comment: Cysto, stent insertion 09/29/15, Colon resction 2010. [facility]/LITHOTRIPSY - ANESTHESIA Hx Anesthesia: Yes Hx Anesthesia Reactions: No Hx Malignant Hyperthermia: No Meds Allergies/Adverse Reactions: Allergies Allergy/AdvReac Type Severity Reaction Status Date / Time cefdinir [From Omnicef] Allergy Verified 10/02/17 11:52 - Medications Medications: Current Medications Hydrocortisone Sodium Succinate (Solu-Cortef) 100 mg IV Q8H KARAN Last Admin: 04/02/18 22:45 Dose: Not Given Vancomycin/Sodium Chloride (Vancomycin 1 Gm/Ns 200 Ml) 1 gm in 200 mls @ 166.7 mls/hr IVPB STAT KARAN PRN Reason: Protocol Stop: 04/07/18 17:01 Last Admin: 04/02/18 18:49 Dose: 166.7 mls/hr Meropenem 500 mg/ Sodium (Chloride) 100 mls @ 100 mls/hr IVPB Q8 KARAN PRN Reason: Protocol Metronidazole (Flagyl) 500 mg in 100 mls @ 100 mls/hr IVPB Q8 KARAN PRN Reason: Protocol Last Admin: 04/02/18 22:45 Dose: 100 mls/hr Norepinephrine Bitartrate 8 mg (/ Dextrose) 258 mls @ 7.74 mls/hr IV .Q24H PRN ; Protocol; 4 MCG/MIN PRN Reason: TITRATE PER MD ORDER Last Admin: 04/02/18 20:09 Dose: 4 mcg/min, 7.74 mls/hr Amiodarone HCl 900 mg/ (Dextrose) 500 mls @ 33.33 mls/hr IV .Q15H1M KARAN; 1 MG/ MIN PRN Reason: Protocol Stop: 04/03/18 03:30 Last Admin: 04/02/18 21:40 Dose: 33.33 mls/hr Amiodarone HCl 900 mg/ (Dextrose) 500 mls @ 16.66 mls/hr IV .Q24H KARAN; 0.5 MG/ MIN PRN Reason: Protocol Stop: 04/03/18 21:30 Vasopressin 40 units/ Dextrose 40 mls @ 2.4 mls/hr IV .[id number] KARAN PRN Reason: 0.04 UNITS/MIN Last Admin: 04/02/18 23:23 Dose: 2.4 mls/hr Sodium Bicarbonate 150 meq/ (Dextrose) 1,000 mls @ 75 mls/hr IV .[id number] KARAN Last Admin: 04/02/18 23:30 Dose: 75 mls/hr Phenylephrine HCl 30 mg/ (Dextrose) 253 mls @ 10.12 mls/hr IV .Q24H PRN; Protocol; 20 MCG/MIN PRN Reason: TITRATE PER MD ORDER Last Admin: 04/02/18 23:28 Dose: 20 mcg/min, 10.12 mls/hr Verapamil HCl 40 mg/ Sodium (Chloride) 100 mls @ 12.5 mls/hr IV .Q8H PRN; 5 MG/ HR PRN Reason: Protocol Last Admin: 04/02/18 23:50 Dose: 12.5 mls/hr Vancomycin HCl (Vancocin (Oral Or Rectal Use)) 500 mg PO QID KARAN PRN Reason: Protocol Last Admin: 04/02/18 22:45 Dose: Not Given Physical Exam - Constitutional Appears: In Acute Distress, Older Than Stated Age, Confused, Chronically Ill - Head Exam Head Exam: ATRAUMATIC - Eye Exam Eye Exam: EOMI Pupil Exam: NORMAL ACCOMODATION - ENT Exam ENT Exam: Mucous Membranes Moist - Respiratory Exam Respiratory Exam: Clear to Auscultation Bilateral, NORMAL BREATHING PATTERN. absent: Rales, Rhonchi, Wheezes, Respiratory Distress, Stridor - Cardiovascular Exam Cardiovascular Exam: Tachycardia, +S1, +S2, Systolic Murmur - GI/Abdominal Exam GI & Abdominal Exam: Normal Bowel Sounds, Soft, Tenderness. absent: Organomegaly, Pulsatile Mass, Rebound, Rigid - Extremities Exam Extremities exam: Positive for: joint swelling - Neurological Exam Neurological exam: Alert Results - Vital Signs Recent Vital Signs: Last Vital Signs Temp 97.5 F L 04/02/18 22:22 Pulse 125 H 04/02/18 23:38 Resp 25 H 04/02/18 23:38 BP 129/39 L 04/02/18 23:38 Pulse Ox 100 04/02/18 23:38 - Labs Result Diagrams: 04/03/18 06:28 04/03/18 06:23 Labs: Laboratory Results - last 24 hr 04/02/18 04/02/18 04/02/18 15:25 15:25 15:30 WBC 52.3 H* D RBC 4.32 L Hgb 13.2 D Hct 41.2 MCV 95.5 H D MCH 30.6 MCHC 32.0 L RDW 15.6 H Plt Count 516 H D MPV 8.7 Neut % (Auto) 96.4 H Lymph % (Auto) 0.7 L Whitman % (Auto) 2.3 Eos % (Auto) 0.1 Baso % (Auto) 0.5 Neut # (Auto) 50.4 H Lymph # (Auto) 0.4 L Whitman # (Auto) 1.2 H Eos # (Auto) 0.0 Baso # (Auto) 0.3 H Neutrophils % (Manual) 90 H Band Neutrophils % 2 Lymphocytes % (Manual) 1 L Monocytes % (Manual) 4 Metamyelocytes % 1 H Myelocytes % 2 H Toxic Granulation Present Platelet Estimate Increased H Large Platelets Present Giant Platelets Polychromasia Hypochromasia (manual) Poikilocytosis (manual Slight Anisocytosis (manual) Slight Microcytosis (manual) Slight Macrocytosis (manual) Slight Shaan Cells PT 13.3 H INR 1.2 APTT 21 Puncture Site pCO2 pO2 60 H HCO3 ABG pH ABG Total CO2 ABG O2 Saturation ABG Base Excess [place] Test ABG Potassium VBG pH 6.87 L* VBG pCO2 17 L* VBG HCO3 1.2 VBG Total CO2 3.6 L VBG O2 Sat (Calc) 90.1 H VBG Base Excess -29.2 L VBG Potassium 11.7 H* A-a O2 Difference Respiratory Index Sodium 123.0 L Chloride 99.0 Glucose 202 H Lactate 3.3 H Liter Flow FiO2 Inspiratory BiPAP Expiratory BiPAP Crit Value Called To 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 Crit Value Called By Dennis raza md Crit Value Read Back Y Blood Gas Notified Time 1535 Potassium Carbon Dioxide Anion Gap BUN Creatinine Est GFR ( Amer) Est GFR (Non-Af Amer) POC Glucose (mg/dL) Random Glucose Lactic Acid Calcium Phosphorus Magnesium Total Bilirubin AST ALT Alkaline Phosphatase Total Creatine Kinase CK-MB (Mass) Troponin I NT-Pro-B Natriuret Pep Total Protein Albumin Globulin Albumin/Globulin Ratio Procalcitonin TSH 3rd Generation Arterial Blood Potassium Venous Blood Potassium 11.7 H* Urine Color Urine Clarity Urine pH Ur Specific [place] Urine Protein Urine Glucose (UA) Urine Ketones Urine Blood Urine Nitrate Urine Bilirubin Urine Urobilinogen Ur Leukocyte Esterase Urine WBC (Auto) Urine RBC (Auto) Ur Squamous Epith Cells Urine Bacteria Digoxin Blood Type Antibody Screen 04/02/18 04/02/18 04/02/18 16:03 16:10 18:08 WBC RBC Hgb Hct MCV MCH MCHC RDW Plt Count MPV Neut % (Auto) Lymph % (Auto) Whitman % (Auto) Eos % (Auto) Baso % (Auto) Neut # (Auto) Lymph # (Auto) Whitman # (Auto) Eos # (Auto) Baso # (Auto) Neutrophils % (Manual) Band Neutrophils % Lymphocytes % (Manual) Monocytes % (Manual) Metamyelocytes % Myelocytes % Toxic Granulation Platelet Estimate Large Platelets Giant Platelets Polychromasia Hypochromasia (manual) Poikilocytosis (manual Anisocytosis (manual) Microcytosis (manual) Macrocytosis (manual) [place] Cells PT INR APTT Puncture Site pCO2 pO2 HCO3 ABG pH ABG Total CO2 ABG O2 Saturation ABG Base Excess [place] Test ABG Potassium VBG pH VBG pCO2 VBG HCO3 VBG Total CO2 VBG O2 Sat (Calc) VBG Base Excess VBG Potassium A-a O2 Difference Respiratory Index Sodium 131 L Chloride 109 H Glucose Lactate Liter Flow FiO2 Inspiratory BiPAP Expiratory BiPAP Crit Value Called To Crit Value Called By Crit Value Read Back Blood Gas Notified Time Potassium 7.1 H* D Carbon Dioxide < 5 L* D Anion Gap 24 H BUN 150 H* D Creatinine 6.2 H Est GFR ( Amer) 11 Est GFR (Non-Af Amer) 9 POC Glucose (mg/dL) Random Glucose 176 H Lactic Acid Calcium 7.0 L Phosphorus 12.4 H Magnesium 2.4 H Total Bilirubin 0.8 AST 25 ALT 17 L Alkaline Phosphatase 95 Total Creatine Kinase 476 H CK-MB (Mass) 12.1 H Troponin I < 0.0120 < 0.0120 NT-Pro-B Natriuret Pep 5000 H 5290 H Total Protein 5.9 L Albumin 2.9 L Globulin 3.1 Albumin/Globulin Ratio 0.9 L Procalcitonin TSH 3rd Generation 2.67 Arterial Blood Potassium Venous Blood Potassium Urine Color Yellow Urine Clarity Hazy Urine pH 5.0 Ur Specific [place] 1.014 Urine Protein Negative Urine Glucose (UA) Normal Urine Ketones Negative Urine Blood 1+ H Urine Nitrate Negative Urine Bilirubin Negative Urine Urobilinogen Normal Ur Leukocyte Esterase 1+ H Urine WBC (Auto) 7 H Urine RBC (Auto) 7 H Ur Squamous Epith Cells 1 Urine Bacteria Rare Digoxin Blood Type Antibody Screen 04/02/18 04/02/18 04/02/18 18:08 18:36 18:51 WBC RBC Hgb Hct MCV MCH MCHC RDW Plt Count MPV Neut % (Auto) Lymph % (Auto) Whitman % (Auto) Eos % (Auto) Baso % (Auto) Neut # (Auto) Lymph # (Auto) Whitman # (Auto) Eos # (Auto) Baso # (Auto) Neutrophils % (Manual) Band Neutrophils % Lymphocytes % (Manual) Monocytes % (Manual) Metamyelocytes % Myelocytes % Toxic Granulation Platelet Estimate Large Platelets Giant Platelets Polychromasia Hypochromasia (manual) Poikilocytosis (manual Anisocytosis (manual) Microcytosis (manual) Macrocytosis (manual) [place] Cells PT INR APTT Puncture Site pCO2 pO2 44 HCO3 ABG pH ABG Total CO2 ABG O2 Saturation ABG Base Excess [place] Test ABG Potassium VBG pH 7.07 L* VBG pCO2 15 L* VBG HCO3 5.3 VBG Total CO2 4.8 L VBG O2 Sat (Calc) 82.4 H VBG Base Excess -23.8 L VBG Potassium 4.1 A-a O2 Difference Respiratory Index Sodium 135.0 Chloride 114.0 H Glucose 108 Lactate 2.3 H Liter Flow FiO2 Inspiratory BiPAP Expiratory BiPAP Crit Value 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 Crit Value Called By Ghazala Crit Value Read Back Y Blood Gas Notified Time 1840 Potassium Carbon Dioxide Anion Gap BUN Creatinine Est GFR ( Amer) Est GFR (Non-Af Amer) POC Glucose (mg/dL) Random Glucose Lactic Acid 3.1 H Calcium Phosphorus Magnesium Total Bilirubin AST ALT Alkaline Phosphatase Total Creatine Kinase CK-MB (Mass) Troponin I NT-Pro-B Natriuret Pep Total Protein Albumin Globulin Albumin/Globulin Ratio Procalcitonin 6.48 H TSH 3rd Generation Arterial Blood Potassium Venous Blood Potassium 4.1 Urine Color Urine Clarity Urine pH Ur Specific [place] Urine Protein Urine Glucose (UA) Urine Ketones Urine Blood Urine Nitrate Urine Bilirubin Urine Urobilinogen Ur Leukocyte Esterase Urine WBC (Auto) Urine RBC (Auto) Ur Squamous Epith Cells Urine Bacteria Digoxin Blood Type Antibody Screen 04/02/18 04/02/18 04/02/18 20:24 20:40 20:49 WBC RBC Hgb Hct MCV MCH MCHC RDW Plt Count MPV Neut % (Auto) Lymph % (Auto) Whitman % (Auto) Eos % (Auto) Baso % (Auto) Neut # (Auto) Lymph # (Auto) Whitman # (Auto) Eos # (Auto) Baso # (Auto) Neutrophils % (Manual) Band Neutrophils % Lymphocytes % (Manual) Monocytes % (Manual) Metamyelocytes % Myelocytes % Toxic Granulation Platelet Estimate Large Platelets Giant Platelets Polychromasia Hypochromasia (manual) Poikilocytosis (manual Anisocytosis (manual) Microcytosis (manual) Macrocytosis (manual) Shaan Cells PT INR APTT Puncture Site Rra pCO2 16 L* pO2 149 H 38 HCO3 12.3 L ABG pH 7.29 L ABG Total CO2 8.2 L ABG O2 Saturation 98.0 ABG Base Excess -16.3 L [place] Test Na ABG Potassium 2.3 L* VBG pH 7.24 L VBG pCO2 27 L VBG HCO3 12.9 VBG Total CO2 12.4 L VBG O2 Sat (Calc) 76.8 H VBG Base Excess -14.2 L VBG Potassium 4.0 A-a O2 Difference 45.0 Respiratory Index 0.3 Sodium 146.0 137.0 Chloride 124.0 H 108.0 H Glucose 100 125 H Lactate 2.5 H 4.4 H* Liter Flow 3.0 FiO2 30.0 Inspiratory BiPAP Expiratory BiPAP Crit Value Called To Ranjeet Pollack md Crit Value Called By Ghazala Vivar Crit Value Read Back Y Y Blood Gas Notified Time 2042 2052 Potassium Carbon Dioxide Anion Gap BUN Creatinine Est GFR ( Amer) Est GFR (Non-Af Amer) POC Glucose (mg/dL) 137 H Random Glucose Lactic Acid Calcium Phosphorus Magnesium Total Bilirubin AST ALT Alkaline Phosphatase Total Creatine Kinase CK-MB (Mass) Troponin I NT-Pro-B Natriuret Pep Total Protein Albumin Globulin Albumin/Globulin Ratio Procalcitonin TSH 3rd Generation Arterial Blood Potassium 2.3 L* Venous Blood Potassium 4.0 Urine Color Urine Clarity Urine pH Ur Specific [place] Urine Protein Urine Glucose (UA) Urine Ketones Urine Blood Urine Nitrate Urine Bilirubin Urine Urobilinogen Ur Leukocyte Esterase Urine WBC (Auto) Urine RBC (Auto) Ur Squamous Epith Cells Urine Bacteria Digoxin Blood Type Antibody Screen 04/02/18 04/02/18 04/02/18 20:50 21:16 21:16 WBC RBC Hgb Hct MCV MCH MCHC RDW Plt Count MPV Neut % (Auto) Lymph % (Auto) [place] % (Auto) Eos % (Auto) Baso % (Auto) Neut # (Auto) Lymph # (Auto) [place] # (Auto) Eos # (Auto) Baso # (Auto) Neutrophils % (Manual) Band Neutrophils % Lymphocytes % (Manual) Monocytes % (Manual) Metamyelocytes % Myelocytes % Toxic Granulation Platelet Estimate Large Platelets Giant Platelets Polychromasia Hypochromasia (manual) Poikilocytosis (manual Anisocytosis (manual) Microcytosis (manual) Macrocytosis (manual) [place] Cells PT INR APTT Puncture Site pCO2 pO2 HCO3 ABG pH ABG Total CO2 ABG O2 Saturation ABG Base Excess [place] Test ABG Potassium VBG pH VBG pCO2 VBG HCO3 VBG Total CO2 VBG O2 Sat (Calc) VBG Base Excess VBG Potassium A-a O2 Difference Respiratory Index Sodium 141 Chloride 111 H Glucose Lactate Liter Flow FiO2 Inspiratory BiPAP Expiratory BiPAP Crit Value Called To Crit Value Called By Crit Value Read Back Blood Gas Notified Time Potassium 4.1 Carbon Dioxide 11 L* D Anion Gap 23 H BUN 116 H* D Creatinine 4.7 H Est GFR ( Amer) 15 Est GFR (Non-Af Amer) 12 POC Glucose (mg/dL) Random Glucose 126 H Lactic Acid 4.1 H* Calcium 9.3 Phosphorus 8.1 H Magnesium 1.9 Total Bilirubin AST ALT Alkaline Phosphatase Total Creatine Kinase CK-MB (Mass) Troponin I NT-Pro-B Natriuret Pep Total Protein Albumin Globulin Albumin/Globulin Ratio Procalcitonin TSH 3rd Generation Arterial Blood Potassium Venous Blood Potassium Urine Color Urine Clarity Urine pH Ur Specific [place] Urine Protein Urine Glucose (UA) Urine Ketones Urine Blood Urine Nitrate Urine Bilirubin Urine Urobilinogen Ur Leukocyte Esterase Urine WBC (Auto) Urine RBC (Auto) Ur Squamous Epith Cells Urine Bacteria Digoxin < 0.4 L Blood Type Antibody Screen 04/02/18 04/02/18 04/02/18 22:30 22:42 23:04 WBC 22.6 H D RBC 3.73 L Hgb 11.5 L Hct 34.3 L MCV 92.0 D MCH 30.9 MCHC 33.6 RDW 14.6 H Plt Count 312 D MPV 8.2 Neut % (Auto) 97.6 H Lymph % (Auto) 0.8 L Whitman % (Auto) 1.5 Eos % (Auto) 0.0 Baso % (Auto) 0.1 Neut # (Auto) 22.1 H Lymph # (Auto) 0.2 L Whitman # (Auto) 0.3 Eos # (Auto) 0.0 Baso # (Auto) 0.0 Neutrophils % (Manual) 86 H Band Neutrophils % 12 H* Lymphocytes % (Manual) TEST NOT PERFORMED Monocytes % (Manual) 2 Metamyelocytes % Myelocytes % Toxic Granulation Present Platelet Estimate Normal Large Platelets Present Giant Platelets Present Polychromasia Slight Hypochromasia (manual) Slight Poikilocytosis (manual Slight Anisocytosis (manual) Slight Microcytosis (manual) Slight Macrocytosis (manual) Slight [place] Cells Slight PT INR APTT Puncture Site Lra pCO2 31 L pO2 20 L* HCO3 15.3 L ABG pH 7.30 L ABG Total CO2 16.3 L ABG O2 Saturation 40.2 L ABG Base Excess -9.9 L [place] Test Na ABG Potassium 3.3 L VBG pH VBG pCO2 VBG HCO3 VBG Total CO2 VBG O2 Sat (Calc) VBG Base Excess VBG Potassium A-a O2 Difference 298.0 Respiratory Index 14.9 Sodium 140.0 Chloride 107.0 Glucose 158 H Lactate 5.8 H* Liter Flow FiO2 50.0 Inspiratory BiPAP 20 Expiratory BiPAP 10 Crit Value Called To Francisco Javier lee Crit Value Called By Ghazala Crit Value Read Back Y Blood Gas Notified Time 5 Potassium Carbon Dioxide Anion Gap BUN Creatinine Est GFR ( Amer) Est GFR (Non-Af Amer) POC Glucose (mg/dL) Random Glucose Lactic Acid Calcium Phosphorus Magnesium Total Bilirubin AST ALT Alkaline Phosphatase Total Creatine Kinase CK-MB (Mass) Troponin I NT-Pro-B Natriuret Pep Total Protein Albumin Globulin Albumin/Globulin Ratio Procalcitonin TSH 3rd Generation Arterial Blood Potassium 3.3 L Venous Blood Potassium Urine Color Urine Clarity Urine pH Ur Specific [place] Urine Protein Urine Glucose (UA) Urine Ketones Urine Blood Urine Nitrate Urine Bilirubin Urine Urobilinogen Ur Leukocyte Esterase Urine WBC (Auto) Urine RBC (Auto) Ur Squamous Epith Cells Urine Bacteria Digoxin Blood Type A POSITIVE Antibody Screen Negative 04/03/18 00:01 WBC RBC Hgb Hct MCV MCH MCHC RDW Plt Count MPV Neut % (Auto) Lymph % (Auto) [place] % (Auto) Eos % (Auto) Baso % (Auto) Neut # (Auto) Lymph # (Auto) [place] # (Auto) Eos # (Auto) Baso # (Auto) Neutrophils % (Manual) Band Neutrophils % Lymphocytes % (Manual) Monocytes % (Manual) Metamyelocytes % Myelocytes % Toxic Granulation Platelet Estimate Large Platelets Giant Platelets Polychromasia Hypochromasia (manual) Poikilocytosis (manual Anisocytosis (manual) Microcytosis (manual) Macrocytosis (manual) Shaan Cells PT INR APTT Puncture Site pCO2 pO2 HCO3 ABG pH ABG Total CO2 ABG O2 Saturation ABG Base Excess [place] Test ABG Potassium VBG pH VBG pCO2 VBG HCO3 VBG Total CO2 VBG O2 Sat (Calc) VBG Base Excess VBG Potassium A-a O2 Difference Respiratory Index Sodium Chloride Glucose Lactate Liter Flow FiO2 Inspiratory BiPAP Expiratory BiPAP Crit Value Called To Crit Value Called By Crit Value Read Back Blood Gas Notified Time Potassium Carbon Dioxide Anion Gap BUN Creatinine Est GFR ( Amer) Est GFR (Non-Af Amer) POC Glucose (mg/dL) 204 H Random Glucose Lactic Acid Calcium Phosphorus Magnesium Total Bilirubin AST ALT Alkaline Phosphatase Total Creatine Kinase CK-MB (Mass) Troponin I NT-Pro-B Natriuret Pep Total Protein Albumin Globulin Albumin/Globulin Ratio Procalcitonin TSH 3rd Generation Arterial Blood Potassium Venous Blood Potassium Urine Color Urine Clarity Urine pH Ur Specific [place] Urine Protein Urine Glucose (UA) Urine Ketones Urine Blood Urine Nitrate Urine Bilirubin Urine Urobilinogen Ur Leukocyte Esterase Urine WBC (Auto) Urine RBC (Auto) Ur Squamous Epith Cells Urine Bacteria Digoxin Blood Type Antibody Screen Assessment & Plan - Assessment and Plan (Free Text) Assessment: Acute Septic shock: started on IVF, rueda culture, check C. diff, continue broad spectrum abc, f/u culutres, serial lactic, start pressors to keep MAP >65, source control, lower leg swelling, continue abx as per ID, vanco per level -A-fib: start amiodarone to keep HR <110, hold anticoagulatoins until patient stabilized and cardiology input -Severe Metabolic acidosis: 2nd TERRENCE with anion gap metabolic acidosis -TERRENCE: with severe acidosis multiple amps of bicarb pushed, HD cath placed and HD performed, renal consult -Chronic systolic and diastolic heart failure: cehck echo, check trop, bi-pap to help decrease pre load and afterload. -Hypoxic respiratoru failure: continue bi-pap titrate FiO2 to keep spo2 >92 -Hyperpotassemia: IV calcium, IV bicarb push, d50 x2 and insulin, repeat chemistry -WOund care -keep NPO except meds -DVT PX heparin patient remains critical cc time 60 minutes prognosis guarded - Date & Time Date: 04/02/18 Time: 19:00
[2018-04-03 01:20] LABS: BARBITURATES, UR NEGATIVE (NEGATIVE); BENZODIAZEPINES, UR NEGATIVE (NEGATIVE); OPIATES, UR NEGATIVE (NEGATIVE); PHENCYCLIDINE, UR NEGATIVE (NEGATIVE)
[2018-04-03 01:25] LABS: ALB/GLOB RATIO 0.9 (1.0-2.1); ALBUMIN 2.2 g/dL (3.5-5.0); CALCIUM 7.4 mg/dl (8.6-10.4)
[2018-04-03] MEDS: Verapamil 40 MG in Sodium Chloride 0.9% 84 ML IV PRN (05:03)
[2018-04-03] MEDS ORDERED: Verapamil 40 MG in Sodium Chloride 0.9% 84 ML IV PRN (05:09)
[2018-04-03] MEDS: Meropenem 500 MG in Sodium Chloride 0.9% 100 ML IVPB SCH ×3 (05:11→21:37)
[2018-04-03] MEDS: metroNIDAZOLE IV 500 mg/100 ml 500 MG/100 ML BAG IVPB SCH ×3 (05:12→21:05)
[2018-04-03 06:37] LABS: MEAN PLATELET VOLUME 8.6 fL (7.2-11.7)
[2018-04-03 06:59] LABS: HEMOGLOBIN 11.3 g/dL (12.0-18.0); MEAN CELL VOLUME 92.7 fL (80.0-94.0); MEAN CORPUSCULAR HEMOGLOBIN 31.5 pg (27.0-31.0); PLATELET COUNT 276 K/uL (130-400); RBC 3.58 Mil/uL (4.40-5.90); RED CELL DISTRIBUTION WIDTH 14.7 % (11.5-14.5); WHITE BLOOD COUNT 19.6 K/uL (4.8-10.8)
[2018-04-03 07:03] LABS: ALBUMIN 2.4 g/dL (3.5-5.0); CALCIUM 7.4 mg/dl (8.6-10.4)
[2018-04-03] MEDS ORDERED: Vancomycin 1 gm/NS 200 ml 1 GM/200 ML BAG IVPB STA (07:17)
[2018-04-03 08:03] LABS: HEPATITIS B SURFACE AG Negative (NEGATIVE)
[2018-04-03 08:09] LABS: HEPATITIS B CORE AB NEGATIVE (NEGATIVE)
--- NOTE | 2018-04-03 08:19 | CP.CCUPN ---
<Terri Mc - Last Filed: 04/03/18 12:02> CCU Subjective - Physician Review Subjective (Free Text): Patient is seen and examined at bedside. Patient is lethargic but responsive. Follows commands and communicates slowly. Currently on BiPAP. CCU Objective - Vital Signs / Intake & Output Vital Signs (Last 4 hours): Vital Signs Pulse Resp BP Pulse Ox 04/03/18 06:38 99 H 04/03/18 06:01 99 H 21 105/39 L 100 04/03/18 06:00 96 H 20 100 04/03/18 05:02 98 H 20 108/37 L 100 Intake and Output (Last 8hrs): Intake & Output 04/02/18 04/03/18 04/03/18 22:59 06:59 14:59 Intake Total 1079.1 3454.3 Output Total 180 675 Balance 899.1 2779.3 Weight 224 lb 10.417 oz 230 lb 9.656 oz Intake: Intake, IV Amount 1079.1 3454.3 LEFT FA Y 300 Left Forearm 266.6 199.6 RIGHT FEM. Y 19.2 Right Fem. PB 10 Right Femoral 312.5 156.4 Right Femoral SP 144.1 Right Forearm 500 2625 Oral 0 Output: Urine 180 475 Urethral (Wall) 180 475 Stool 200 Emesis 0 Other: Voiding Method Indwelling Catheter # Bowel Movements 0 1 - Physical Exam Head: Positive for: Atraumatic, Normocephalic Pupils: Positive for: PERRL Extroacular Muscles: Positive for: EOMI Conjunctiva: Positive for: Normal Mouth: Positive for: Dry Neck: Positive for: Normal Range of Motion Respiratory/Chest: Positive for: Clear to Auscultation. Negative for: Decreased Breath Sounds Cardiovascular: Positive for: Tachycardic Abdomen: Positive for: Tenderness (TTP lower abdomen ), Distention, Normal Bowel Sounds Upper Extremity: Positive for: Normal Inspection, NORMAL PULSES, Neurovascularly Intact Lower Extremity: Positive for: CALF TENDERNESS, Tenderness, Swelling, Erythema, Other (severe cellulitis noted bilateral lower extremities with eschar noted on heels, fungus. Open wounds on superior and lateral aspects of shins with maggots ) Neurological: Positive for: GCS=15, CN II-XII Intact Skin: Positive for: Warm, Dry Psychiatric: Positive for: Alert - Medications Active Medications: Active Medications Generic Name Dose Route Start Last Admin Trade Name Freq PRN Reason Stop Dose Admin Hydrocortisone Sodium Succinate 100 mg 04/02/18 22:00 04/03/18 05:52 Solu-Cortef IV 100 mg Q8H KARAN Administration Vancomycin/Sodium Chloride 1 gm in 200 mls @ 166.7 mls/hr 04/02/18 17:00 18:49 Vancomycin 1 Gm/Ns 200 Ml IVPB 04/07/18 17:01 166.7 mls/hr STAT KARAN Administration Protocol Meropenem 500 mg/ Sodium 100 mls @ 100 mls/hr 04/03/18 06:00 04/03/18 05:11 Chloride IVPB 100 mls/hr Q8 KARAN Administration Protocol Metronidazole 500 mg in 100 mls @ 100 mls/hr 04/02/18 22:00 04/03/18 05:12 Flagyl IVPB 100 mls/hr Q8 KARAN Administration Protocol Norepinephrine Bitartrate 8 mg 258 mls @ 7.74 mls/hr 04/02/18 19:28 04/02/18 20:09 / Dextrose IV 4 mcg/min .Q24H PRN 7.74 mls/hr TITRATE PER MD ORDER Administration Protocol 4 MCG/MIN Amiodarone HCl 900 mg/ 500 mls @ 16.66 mls/hr 04/03/18 03:30 04/03/18 03:30 Dextrose IV 04/03/18 21:30 16.66 mls/hr .Q24H KARAN Administration Protocol 0.5 MG/MIN Vasopressin 40 units/ Dextrose 40 mls @ 2.4 mls/hr 04/02/18 22:30 04/02/18 23 :23 IV 2.4 mls/hr .[id number] KARAN Administration 0.04 UNITS/MIN Sodium Bicarbonate 150 meq/ 1,000 mls @ 75 mls/hr 04/02/18 22:45 04/02/18 23: 30 Dextrose IV 75 mls/hr .[id number] KARAN Administration Phenylephrine HCl 30 mg/ 253 mls @ 10.12 mls/hr 04/02/18 22:53 04/02/18 23:28 Dextrose IV 20 mcg/min .Q24H PRN 10.12 mls/hr TITRATE PER MD ORDER Administration Protocol 20 MCG/MIN Verapamil HCl 40 mg/ Sodium 100 mls @ 18.75 mls/hr 04/03/18 05:09 04/03/18 05 :24 Chloride IV 18.75 mls/hr .[id number] PRN Administration FOR HR Protocol 7.5 MG/HR Vancomycin/Sodium Chloride 1 gm in 200 mls @ 167 mls/hr 04/03/18 07:17 Vancomycin 1 Gm/Ns 200 Ml IVPB 04/03/18 08:28 STAT STA Protocol Vancomycin HCl 500 mg 04/02/18 18:00 04/02/18 22:45 Vancocin (Oral Or Rectal Use) PO Not Given QID ON LICENSE OF [facility] Protocol - Patient Studies Lab Studies: Microbiology Studies 04/02/18 18:51 Gram Stain - Final Leg - Right Lab Studies 04/03/18 04/03/18 04/03/18 Range/Units 06:28 06:23 06:23 WBC 19.6 H (4.8-10.8) K/uL RBC 3.58 L (4.40-5.90) Mil/uL Hgb 11.3 L (12.0-18.0) g/dL Hct 33.2 L (35.0-51.0) % MCV 92.7 (80.0-94.0) fL MCH 31.5 H (27.0-31.0) pg MCHC 34.0 (33.0-37.0) g/dL RDW 14.7 H (11.5-14.5) % Plt Count 276 (130-400) K/uL MPV 8.6 (7.2-11.7) fL Neut % (Auto) (50.0-75.0) % Lymph % (Auto) (20.0-40.0) % [place] % (Auto) (0.0-10.0) % Eos % (Auto) (0.0-4.0) % Baso % (Auto) (0.0-2.0) % Neut # (Auto) (1.8-7.0) K/uL Lymph # (Auto) (1.0-4.3) K/uL [place] # (Auto) (0.0-0.8) K/uL Eos # (Auto) (0.0-0.7) K/uL Baso # (Auto) (0.0-0.2) K/uL Neutrophils % (Manual) (50-75) % Band Neutrophils % (0-2) % Lymphocytes % (Manual) (20-40) % Monocytes % (Manual) (0-10) % Metamyelocytes % (0-0) % Myelocytes % (0-0) % Toxic Granulation Platelet Estimate (NORMAL) Large Platelets Giant Platelets Polychromasia Hypochromasia (manual) Poikilocytosis (manual Anisocytosis (manual) Microcytosis (manual) Macrocytosis (manual) [place] Cells PT (9.7-12.2) SECONDS INR APTT (21-34) SECONDS Puncture Site pCO2 (35-45) mm/Hg pO2 (30-55) mm/Hg HCO3 (21-28) mmol/L ABG pH (7.35-7.45) ABG Total CO2 (22-28) mmol/L ABG O2 Saturation (95-98) % ABG Base Excess (-2.0-3.0) mmol/L [place] Test ABG Potassium (3.6-5.2) mmol/L VBG pH (7.32-7.43) VBG pCO2 (40-60) mmHg VBG HCO3 mmol/L VBG Total CO2 (22-28) mmol/L VBG O2 Sat (Calc) (40-65) % VBG Base Excess (0.0-2.0) mmol/L VBG Potassium (3.6-5.2) mmol/L A-a O2 Difference mm/Hg Respiratory Index Sodium 139 (132-148) mmol/l Chloride 107 (98-107) mmol/L Glucose (75-110) mg/dl Lactate (0.7-2.1) mmol/L Liter Flow FiO2 % Inspiratory BiPAP Expiratory BiPAP Crit Value Called To Crit Value Called By Crit Value Read Back Blood Gas Notified Time Potassium 4.3 (3.6-5.2) mmol/L Carbon Dioxide 15 L (22-30) mmol/L Anion Gap 21 H (10-20) BUN 87 H (9-20) mg/dL Creatinine 3.2 H (0.8-1.5) mg/dL Est GFR ( Amer) 23 Est GFR (Non-Af Amer) 19 POC Glucose (mg/dL) (65-110) mg/dL Random Glucose 237 H (75-110) mg/dL Lactic Acid (0.7-2.1) mmol/L Calcium 7.4 L (8.6-10.4) mg/dl Phosphorus (2.5-4.5) mg/dL Magnesium (1.6-2.3) mg/dL Total Bilirubin 1.6 H (0.2-1.3) mg/dL AST 39 (17-59) U/L ALT 30 (21-72) U/L Alkaline Phosphatase 64 (38-126) U/L Total Creatine Kinase (55-170) U/L CK-MB (Mass) (0.0-3.38) ng/mL Troponin I (0.00-0.120) ng/mL NT-Pro-B Natriuret Pep (0-900) pg/mL Total Protein 4.8 L (6.3-8.3) g/dL Albumin 2.4 L (3.5-5.0) g/dL Globulin 2.5 (2.2-3.9) gm/dL Albumin/Globulin Ratio 1.0 (1.0-2.1) Triglycerides 163 H (0-149) mg/dL Cholesterol 83 (0-199) mg/dL LDL Cholesterol Direct 33 (0-129) mg/dL HDL Cholesterol 14 L (30-70) mg/dL Procalcitonin (0.19-0.49) NG/ML TSH 3rd Generation (0.46-4.68) mIU/L Arterial Blood Potassium (3.6-5.2) mmol/L Venous Blood Potassium (3.6-5.2) mmol/L Urine Color (YELLOW) Urine Clarity (Clear) Urine pH (5.0-8.0) Ur Specific [place] (1.003-1.030) Urine Protein (NEGATIVE) mg/dL Urine Glucose (UA) (Normal) mg/dL Urine Ketones (NEGATIVE) mg/dL Urine Blood (NEGATIVE) Urine Nitrate (NEGATIVE) Urine Bilirubin (NEGATIVE) Urine Urobilinogen (0.2-1.0) mg/dL Ur Leukocyte Esterase (Negative) [place]/uL Urine WBC (Auto) (0-5) /hpf Urine RBC (Auto) (0-3) /hpf Ur Squamous Epith Cells (0-5) /hpf Urine Bacteria (<OCC) Random Vancomycin 6.6 ug/mL Digoxin (0.8-2.0) ng/mL Urine Opiates Screen (NEGATIVE) Urine Methadone Screen (NEGATIVE) Ur Barbiturates Screen (NEGATIVE) Ur Phencyclidine Scrn (NEGATIVE) Ur Amphetamines Screen (NEGATIVE) U Benzodiazepines Scrn (NEGATIVE) U Oth Cocaine Metabols (NEGATIVE) U Cannabinoids Screen (NEGATIVE) Hep Bs Antigen (NEGATIVE) Blood Type Antibody Screen 04/03/18 04/03/18 04/03/18 Range/Units 06:23 05:44 02:34 WBC (4.8-10.8) K/uL RBC (4.40-5.90) Mil/uL Hgb (12.0-18.0) g/dL Hct (35.0-51.0) % MCV (80.0-94.0) fL MCH (27.0-31.0) pg MCHC (33.0-37.0) g/dL RDW (11.5-14.5) % Plt Count (130-400) K/uL MPV (7.2-11.7) fL Neut % (Auto) (50.0-75.0) % Lymph % (Auto) (20.0-40.0) % [place] % (Auto) (0.0-10.0) % Eos % (Auto) (0.0-4.0) % Baso % (Auto) (0.0-2.0) % Neut # (Auto) (1.8-7.0) K/uL Lymph # (Auto) (1.0-4.3) K/uL [place] # (Auto) (0.0-0.8) K/uL Eos # (Auto) (0.0-0.7) K/uL Baso # (Auto) (0.0-0.2) K/uL Neutrophils % (Manual) (50-75) % Band Neutrophils % (0-2) % Lymphocytes % (Manual) (20-40) % Monocytes % (Manual) (0-10) % Metamyelocytes % (0-0) % Myelocytes % (0-0) % Toxic Granulation Platelet Estimate (NORMAL) Large Platelets Giant Platelets Polychromasia Hypochromasia (manual) Poikilocytosis (manual Anisocytosis (manual) Microcytosis (manual) Macrocytosis (manual) [place] Cells PT (9.7-12.2) SECONDS INR APTT (21-34) SECONDS Puncture Site pCO2 (35-45) mm/Hg pO2 (30-55) mm/Hg HCO3 (21-28) mmol/L ABG pH (7.35-7.45) ABG Total CO2 (22-28) mmol/L ABG O2 Saturation (95-98) % ABG Base Excess (-2.0-3.0) mmol/L [place] Test ABG Potassium (3.6-5.2) mmol/L VBG pH (7.32-7.43) VBG pCO2 (40-60) mmHg VBG HCO3 mmol/L VBG Total CO2 (22-28) mmol/L VBG O2 Sat (Calc) (40-65) % VBG Base Excess (0.0-2.0) mmol/L VBG Potassium (3.6-5.2) mmol/L A-a O2 Difference mm/Hg Respiratory Index Sodium (132-148) mmol/l Chloride (98-107) mmol/L Glucose (75-110) mg/dl Lactate (0.7-2.1) mmol/L Liter Flow FiO2 % Inspiratory BiPAP Expiratory BiPAP Crit Value Called To Crit Value Called By Crit Value Read Back Blood Gas Notified Time Potassium (3.6-5.2) mmol/L Carbon Dioxide (22-30) mmol/L Anion Gap (10-20) BUN (9-20) mg/dL Creatinine (0.8-1.5) mg/dL Est GFR ( Amer) Est GFR (Non-Af Amer) POC Glucose (mg/dL) 275 H (65-110) mg/dL Random Glucose (75-110) mg/dL Lactic Acid 4.6 H* 5.6 H* (0.7-2.1) mmol/L Calcium (8.6-10.4) mg/dl Phosphorus (2.5-4.5) mg/dL Magnesium (1.6-2.3) mg/dL Total Bilirubin (0.2-1.3) mg/dL AST (17-59) U/L ALT (21-72) U/L Alkaline Phosphatase (38-126) U/L Total Creatine Kinase (55-170) U/L CK-MB (Mass) (0.0-3.38) ng/mL Troponin I (0.00-0.120) ng/mL NT-Pro-B Natriuret Pep (0-900) pg/mL Total Protein (6.3-8.3) g/dL Albumin (3.5-5.0) g/dL Globulin (2.2-3.9) gm/dL Albumin/Globulin Ratio (1.0-2.1) Triglycerides (0-149) mg/dL Cholesterol (0-199) mg/dL LDL Cholesterol Direct (0-129) mg/dL HDL Cholesterol (30-70) mg/dL Procalcitonin (0.19-0.49) NG/ML TSH 3rd Generation (0.46-4.68) mIU/L Arterial Blood Potassium (3.6-5.2) mmol/L Venous Blood Potassium (3.6-5.2) mmol/L Urine Color (YELLOW) Urine Clarity (Clear) Urine pH (5.0-8.0) Ur Specific [place] (1.003-1.030) Urine Protein (NEGATIVE) mg/dL Urine Glucose (UA) (Normal) mg/dL Urine Ketones (NEGATIVE) mg/dL Urine Blood (NEGATIVE) Urine Nitrate (NEGATIVE) Urine Bilirubin (NEGATIVE) Urine Urobilinogen (0.2-1.0) mg/dL Ur Leukocyte Esterase (Negative) [place]/uL Urine WBC (Auto) (0-5) /hpf Urine RBC (Auto) (0-3) /hpf Ur Squamous Epith Cells (0-5) /hpf Urine Bacteria (<OCC) Random Vancomycin ug/mL Digoxin (0.8-2.0) ng/mL Urine Opiates Screen (NEGATIVE) Urine Methadone Screen (NEGATIVE) Ur Barbiturates Screen (NEGATIVE) Ur Phencyclidine Scrn (NEGATIVE) Ur Amphetamines Screen (NEGATIVE) U Benzodiazepines Scrn (NEGATIVE) U Oth Cocaine Metabols (NEGATIVE) U Cannabinoids Screen (NEGATIVE) Hep Bs Antigen (NEGATIVE) Blood Type Antibody Screen 04/03/18 04/03/18 04/03/18 Range/Units 00:57 00:55 00:55 WBC (4.8-10.8) K/uL RBC (4.40-5.90) Mil/uL Hgb (12.0-18.0) g/dL Hct (35.0-51.0) % MCV (80.0-94.0) fL MCH (27.0-31.0) pg MCHC (33.0-37.0) g/dL RDW (11.5-14.5) % Plt Count (130-400) K/uL MPV (7.2-11.7) fL Neut % (Auto) (50.0-75.0) % Lymph % (Auto) (20.0-40.0) % [place] % (Auto) (0.0-10.0) % Eos % (Auto) (0.0-4.0) % Baso % (Auto) (0.0-2.0) % Neut # (Auto) (1.8-7.0) K/uL Lymph # (Auto) (1.0-4.3) K/uL [place] # (Auto) (0.0-0.8) K/uL Eos # (Auto) (0.0-0.7) K/uL Baso # (Auto) (0.0-0.2) K/uL Neutrophils % (Manual) (50-75) % Band Neutrophils % (0-2) % Lymphocytes % (Manual) (20-40) % Monocytes % (Manual) (0-10) % Metamyelocytes % (0-0) % Myelocytes % (0-0) % Toxic Granulation Platelet Estimate (NORMAL) Large Platelets Giant Platelets Polychromasia Hypochromasia (manual) Poikilocytosis (manual Anisocytosis (manual) Microcytosis (manual) Macrocytosis (manual) [place] Cells PT (9.7-12.2) SECONDS INR APTT (21-34) SECONDS Puncture Site pCO2 (35-45) mm/Hg pO2 (30-55) mm/Hg HCO3 (21-28) mmol/L ABG pH (7.35-7.45) ABG Total CO2 (22-28) mmol/L ABG O2 Saturation (95-98) % ABG Base Excess (-2.0-3.0) mmol/L [place] Test ABG Potassium (3.6-5.2) mmol/L VBG pH (7.32-7.43) VBG pCO2 (40-60) mmHg VBG HCO3 mmol/L VBG Total CO2 (22-28) mmol/L VBG O2 Sat (Calc) (40-65) % VBG Base Excess (0.0-2.0) mmol/L VBG Potassium (3.6-5.2) mmol/L A-a O2 Difference mm/Hg Respiratory Index Sodium 140 (132-148) mmol/l Chloride 109 H (98-107) mmol/L Glucose (75-110) mg/dl Lactate (0.7-2.1) mmol/L Liter Flow FiO2 % Inspiratory BiPAP Expiratory BiPAP Crit Value Called To Crit Value Called By Crit Value Read Back Blood Gas Notified Time Potassium 3.7 (3.6-5.2) mmol/L Carbon Dioxide 10 L* (22-30) mmol/L Anion Gap 24 H (10-20) BUN 81 H (9-20) mg/dL Creatinine 3.1 H (0.8-1.5) mg/dL Est GFR ( Amer) 24 Est GFR (Non-Af Amer) 20 POC Glucose (mg/dL) (65-110) mg/dL Random Glucose 206 H (75-110) mg/dL Lactic Acid (0.7-2.1) mmol/L Calcium 7.4 L (8.6-10.4) mg/dl Phosphorus 5.0 H (2.5-4.5) mg/dL Magnesium 2.2 (1.6-2.3) mg/dL Total Bilirubin 1.4 H (0.2-1.3) mg/dL AST 33 (17-59) U/L ALT 24 (21-72) U/L Alkaline Phosphatase 86 (38-126) U/L Total Creatine Kinase (55-170) U/L CK-MB (Mass) (0.0-3.38) ng/mL Troponin I 0.0520 (0.00-0.120) ng/mL NT-Pro-B Natriuret Pep (0-900) pg/mL Total Protein 4.7 L (6.3-8.3) g/dL Albumin 2.2 L D (3.5-5.0) g/dL Globulin 2.4 (2.2-3.9) gm/dL Albumin/Globulin Ratio 0.9 L (1.0-2.1) Triglycerides (0-149) mg/dL Cholesterol (0-199) mg/dL LDL Cholesterol Direct (0-129) mg/dL HDL Cholesterol (30-70) mg/dL Procalcitonin (0.19-0.49) NG/ML TSH 3rd Generation (0.46-4.68) mIU/L Arterial Blood Potassium (3.6-5.2) mmol/L Venous Blood Potassium (3.6-5.2) mmol/L Urine Color (YELLOW) Urine Clarity (Clear) Urine pH (5.0-8.0) Ur Specific [place] (1.003-1.030) Urine Protein (NEGATIVE) mg/dL Urine Glucose (UA) (Normal) mg/dL Urine Ketones (NEGATIVE) mg/dL Urine Blood (NEGATIVE) Urine Nitrate (NEGATIVE) Urine Bilirubin (NEGATIVE) Urine Urobilinogen (0.2-1.0) mg/dL Ur Leukocyte Esterase (Negative) [place]/uL Urine WBC (Auto) (0-5) /hpf Urine RBC (Auto) (0-3) /hpf Ur Squamous Epith Cells (0-5) /hpf Urine Bacteria (<OCC) Random Vancomycin ug/mL Digoxin (0.8-2.0) ng/mL Urine Opiates Screen Negative (NEGATIVE) Urine Methadone Screen Negative (NEGATIVE) Ur Barbiturates Screen Negative (NEGATIVE) Ur Phencyclidine Scrn Negative (NEGATIVE) Ur Amphetamines Screen Negative (NEGATIVE) U Benzodiazepines Scrn Negative (NEGATIVE) U Oth Cocaine Metabols Negative (NEGATIVE) U Cannabinoids Screen Negative (NEGATIVE) Hep Bs Antigen (NEGATIVE) Blood Type Antibody Screen 04/03/18 04/02/18 04/02/18 Range/Units 00:01 23:04 22:42 WBC (4.8-10.8) K/uL RBC (4.40-5.90) Mil/uL Hgb (12.0-18.0) g/dL Hct (35.0-51.0) % MCV (80.0-94.0) fL MCH (27.0-31.0) pg MCHC (33.0-37.0) g/dL RDW (11.5-14.5) % Plt Count (130-400) K/uL MPV (7.2-11.7) fL Neut % (Auto) (50.0-75.0) % Lymph % (Auto) (20.0-40.0) % [place] % (Auto) (0.0-10.0) % Eos % (Auto) (0.0-4.0) % Baso % (Auto) (0.0-2.0) % Neut # (Auto) (1.8-7.0) K/uL Lymph # (Auto) (1.0-4.3) K/uL [place] # (Auto) (0.0-0.8) K/uL Eos # (Auto) (0.0-0.7) K/uL Baso # (Auto) (0.0-0.2) K/uL Neutrophils % (Manual) (50-75) % Band Neutrophils % (0-2) % Lymphocytes % (Manual) (20-40) % Monocytes % (Manual) (0-10) % Metamyelocytes % (0-0) % Myelocytes % (0-0) % Toxic Granulation Platelet Estimate (NORMAL) Large Platelets Giant Platelets Polychromasia Hypochromasia (manual) Poikilocytosis (manual Anisocytosis (manual) Microcytosis (manual) Macrocytosis (manual) [place] Cells PT (9.7-12.2) SECONDS INR APTT (21-34) SECONDS Puncture Site Lra pCO2 31 L (35-45) mm/Hg pO2 20 L* (30-55) mm/Hg HCO3 15.3 L (21-28) mmol/L ABG pH 7.30 L (7.35-7.45) ABG Total CO2 16.3 L (22-28) mmol/L ABG O2 Saturation 40.2 L (95-98) % ABG Base Excess -9.9 L (-2.0-3.0) mmol/L [place] Test Na ABG Potassium 3.3 L (3.6-5.2) mmol/L VBG pH (7.32-7.43) VBG pCO2 (40-60) mmHg VBG HCO3 mmol/L VBG Total CO2 (22-28) mmol/L VBG O2 Sat (Calc) (40-65) % VBG Base Excess (0.0-2.0) mmol/L VBG Potassium (3.6-5.2) mmol/L A-a O2 Difference 298.0 mm/Hg Respiratory Index 14.9 Sodium 140.0 (132-148) mmol/l Chloride 107.0 (98-107) mmol/L Glucose 158 H (75-110) mg/dl Lactate 5.8 H* (0.7-2.1) mmol/L Liter Flow FiO2 50.0 % Inspiratory BiPAP 20 Expiratory BiPAP 10 Crit Value Called To Francisco Javier lee Crit Value Called By Ghazala Crit Value Read Back Y Blood Gas Notified Time 2248 Potassium (3.6-5.2) mmol/L Carbon Dioxide (22-30) mmol/L Anion Gap (10-20) BUN (9-20) mg/dL Creatinine (0.8-1.5) mg/dL Est GFR ( Amer) Est GFR (Non-Af Amer) POC Glucose (mg/dL) 204 H (65-110) mg/dL Random Glucose (75-110) mg/dL Lactic Acid (0.7-2.1) mmol/L Calcium (8.6-10.4) mg/dl Phosphorus (2.5-4.5) mg/dL Magnesium (1.6-2.3) mg/dL Total Bilirubin (0.2-1.3) mg/dL AST (17-59) U/L ALT (21-72) U/L Alkaline Phosphatase (38-126) U/L Total Creatine Kinase (55-170) U/L CK-MB (Mass) (0.0-3.38) ng/mL Troponin I (0.00-0.120) ng/mL NT-Pro-B Natriuret Pep (0-900) pg/mL Total Protein (6.3-8.3) g/dL Albumin (3.5-5.0) g/dL Globulin (2.2-3.9) gm/dL Albumin/Globulin Ratio (1.0-2.1) Triglycerides (0-149) mg/dL Cholesterol (0-199) mg/dL LDL Cholesterol Direct (0-129) mg/dL HDL Cholesterol (30-70) mg/dL Procalcitonin (0.19-0.49) NG/ML TSH 3rd Generation (0.46-4.68) mIU/L Arterial Blood Potassium 3.3 L (3.6-5.2) mmol/L Venous Blood Potassium (3.6-5.2) mmol/L Urine Color (YELLOW) Urine Clarity (Clear) Urine pH (5.0-8.0) Ur Specific [place] (1.003-1.030) Urine Protein (NEGATIVE) mg/dL Urine Glucose (UA) (Normal) mg/dL Urine Ketones (NEGATIVE) mg/dL Urine Blood (NEGATIVE) Urine Nitrate (NEGATIVE) Urine Bilirubin (NEGATIVE) Urine Urobilinogen (0.2-1.0) mg/dL Ur Leukocyte Esterase (Negative) [place]/uL Urine WBC (Auto) (0-5) /hpf Urine RBC (Auto) (0-3) /hpf Ur Squamous Epith Cells (0-5) /hpf Urine Bacteria (<OCC) Random Vancomycin ug/mL Digoxin (0.8-2.0) ng/mL Urine Opiates Screen (NEGATIVE) Urine Methadone Screen (NEGATIVE) Ur Barbiturates Screen (NEGATIVE) Ur Phencyclidine Scrn (NEGATIVE) Ur Amphetamines Screen (NEGATIVE) U Benzodiazepines Scrn (NEGATIVE) U Oth Cocaine Metabols (NEGATIVE) U Cannabinoids Screen (NEGATIVE) Hep Bs Antigen (NEGATIVE) Blood Type A POSITIVE Antibody Screen Negative 04/02/18 04/02/18 04/02/18 Range/Units 22:30 21:16 21:16 WBC 22.6 H D (4.8-10.8) K/uL RBC 3.73 L (4.40-5.90) Mil/uL Hgb 11.5 L (12.0-18.0) g/dL Hct 34.3 L (35.0-51.0) % MCV 92.0 D (80.0-94.0) fL MCH 30.9 (27.0-31.0) pg MCHC 33.6 (33.0-37.0) g/dL RDW 14.6 H (11.5-14.5) % Plt Count 312 D (130-400) K/uL MPV 8.2 (7.2-11.7) fL Neut % (Auto) 97.6 H (50.0-75.0) % Lymph % (Auto) 0.8 L (20.0-40.0) % [place] % (Auto) 1.5 (0.0-10.0) % Eos % (Auto) 0.0 (0.0-4.0) % Baso % (Auto) 0.1 (0.0-2.0) % Neut # (Auto) 22.1 H (1.8-7.0) K/uL Lymph # (Auto) 0.2 L (1.0-4.3) K/uL [place] # (Auto) 0.3 (0.0-0.8) K/uL Eos # (Auto) 0.0 (0.0-0.7) K/uL Baso # (Auto) 0.0 (0.0-0.2) K/uL Neutrophils % (Manual) 86 H (50-75) % Band Neutrophils % 12 H* (0-2) % Lymphocytes % (Manual) TEST NOT PERFORMED (20-40) % Monocytes % (Manual) 2 (0-10) % Metamyelocytes % (0-0) % Myelocytes % (0-0) % Toxic Granulation Present Platelet Estimate Normal (NORMAL) Large Platelets Present Giant Platelets Present Polychromasia Slight Hypochromasia (manual) Slight Poikilocytosis (manual Slight Anisocytosis (manual) Slight Microcytosis (manual) Slight Macrocytosis (manual) Slight [place] Cells Slight PT (9.7-12.2) SECONDS INR APTT (21-34) SECONDS Puncture Site pCO2 (35-45) mm/Hg pO2 (30-55) mm/Hg HCO3 (21-28) mmol/L ABG pH (7.35-7.45) ABG Total CO2 (22-28) mmol/L ABG O2 Saturation (95-98) % ABG Base Excess (-2.0-3.0) mmol/L [place] Test ABG Potassium (3.6-5.2) mmol/L VBG pH (7.32-7.43) VBG pCO2 (40-60) mmHg VBG HCO3 mmol/L VBG Total CO2 (22-28) mmol/L VBG O2 Sat (Calc) (40-65) % VBG Base Excess (0.0-2.0) mmol/L VBG Potassium (3.6-5.2) mmol/L A-a O2 Difference mm/Hg Respiratory Index Sodium (132-148) mmol/l Chloride (98-107) mmol/L Glucose (75-110) mg/dl Lactate (0.7-2.1) mmol/L Liter Flow FiO2 % Inspiratory BiPAP Expiratory BiPAP Crit Value Called To Crit Value Called By Crit Value Read Back Blood Gas Notified Time Potassium (3.6-5.2) mmol/L Carbon Dioxide (22-30) mmol/L Anion Gap (10-20) BUN (9-20) mg/dL Creatinine (0.8-1.5) mg/dL Est GFR ( Amer) Est GFR (Non-Af Amer) POC Glucose (mg/dL) (65-110) mg/dL Random Glucose (75-110) mg/dL Lactic Acid 4.1 H* (0.7-2.1) mmol/L Calcium (8.6-10.4) mg/dl Phosphorus (2.5-4.5) mg/dL Magnesium (1.6-2.3) mg/dL Total Bilirubin (0.2-1.3) mg/dL AST (17-59) U/L ALT (21-72) U/L Alkaline Phosphatase (38-126) U/L Total Creatine Kinase (55-170) U/L CK-MB (Mass) (0.0-3.38) ng/mL Troponin I (0.00-0.120) ng/mL NT-Pro-B Natriuret Pep (0-900) pg/mL Total Protein (6.3-8.3) g/dL Albumin (3.5-5.0) g/dL Globulin (2.2-3.9) gm/dL Albumin/Globulin Ratio (1.0-2.1) Triglycerides (0-149) mg/dL Cholesterol (0-199) mg/dL LDL Cholesterol Direct (0-129) mg/dL HDL Cholesterol (30-70) mg/dL Procalcitonin (0.19-0.49) NG/ML TSH 3rd Generation (0.46-4.68) mIU/L Arterial Blood Potassium (3.6-5.2) mmol/L Venous Blood Potassium (3.6-5.2) mmol/L Urine Color (YELLOW) Urine Clarity (Clear) Urine pH (5.0-8.0) Ur Specific [place] (1.003-1.030) Urine Protein (NEGATIVE) mg/dL Urine Glucose (UA) (Normal) mg/dL Urine Ketones (NEGATIVE) mg/dL Urine Blood (NEGATIVE) Urine Nitrate (NEGATIVE) Urine Bilirubin (NEGATIVE) Urine Urobilinogen (0.2-1.0) mg/dL Ur Leukocyte Esterase (Negative) [place]/uL Urine WBC (Auto) (0-5) /hpf Urine RBC (Auto) (0-3) /hpf Ur Squamous Epith Cells (0-5) /hpf Urine Bacteria (<OCC) Random Vancomycin ug/mL Digoxin < 0.4 L (0.8-2.0) ng/mL Urine Opiates Screen (NEGATIVE) Urine Methadone Screen (NEGATIVE) Ur Barbiturates Screen (NEGATIVE) Ur Phencyclidine Scrn (NEGATIVE) Ur Amphetamines Screen (NEGATIVE) U Benzodiazepines Scrn (NEGATIVE) U Oth Cocaine Metabols (NEGATIVE) U Cannabinoids Screen (NEGATIVE) Hep Bs Antigen (NEGATIVE) Blood Type Antibody Screen 04/02/18 04/02/18 04/02/18 Range/Units 20:50 20:49 20:40 WBC (4.8-10.8) K/uL RBC (4.40-5.90) Mil/uL Hgb (12.0-18.0) g/dL Hct (35.0-51.0) % MCV (80.0-94.0) fL MCH (27.0-31.0) pg MCHC (33.0-37.0) g/dL RDW (11.5-14.5) % Plt Count (130-400) K/uL MPV (7.2-11.7) fL Neut % (Auto) (50.0-75.0) % Lymph % (Auto) (20.0-40.0) % [place] % (Auto) (0.0-10.0) % Eos % (Auto) (0.0-4.0) % Baso % (Auto) (0.0-2.0) % Neut # (Auto) (1.8-7.0) K/uL Lymph # (Auto) (1.0-4.3) K/uL [place] # (Auto) (0.0-0.8) K/uL Eos # (Auto) (0.0-0.7) K/uL Baso # (Auto) (0.0-0.2) K/uL Neutrophils % (Manual) (50-75) % Band Neutrophils % (0-2) % Lymphocytes % (Manual) (20-40) % Monocytes % (Manual) (0-10) % Metamyelocytes % (0-0) % Myelocytes % (0-0) % Toxic Granulation Platelet Estimate (NORMAL) Large Platelets Giant Platelets Polychromasia Hypochromasia (manual) Poikilocytosis (manual Anisocytosis (manual) Microcytosis (manual) Macrocytosis (manual) [place] Cells PT (9.7-12.2) SECONDS INR APTT (21-34) SECONDS Puncture Site Rra pCO2 16 L* (35-45) mm/Hg pO2 38 149 H (30-55) mm/Hg HCO3 12.3 L (21-28) mmol/L ABG pH 7.29 L (7.35-7.45) ABG Total CO2 8.2 L (22-28) mmol/L ABG O2 Saturation 98.0 (95-98) % ABG Base Excess -16.3 L (-2.0-3.0) mmol/L [place] Test Na ABG Potassium 2.3 L* (3.6-5.2) mmol/L VBG pH 7.24 L (7.32-7.43) VBG pCO2 27 L (40-60) mmHg VBG HCO3 12.9 mmol/L VBG Total CO2 12.4 L (22-28) mmol/L VBG O2 Sat (Calc) 76.8 H (40-65) % VBG Base Excess -14.2 L (0.0-2.0) mmol/L VBG Potassium 4.0 (3.6-5.2) mmol/L A-a O2 Difference 45.0 mm/Hg Respiratory Index 0.3 Sodium 141 137.0 146.0 (132-148) mmol/l Chloride 111 H 108.0 H 124.0 H (98-107) mmol/L Glucose 125 H 100 (75-110) mg/dl Lactate 4.4 H* 2.5 H (0.7-2.1) mmol/L Liter Flow 3.0 FiO2 30.0 % Inspiratory BiPAP Expiratory BiPAP Crit Value Called To Ranjeet Pollack md Crit Value Called By Ghazala Vivar Crit Value Read Back Y Y Blood Gas Notified Time 2052 2042 Potassium 4.1 (3.6-5.2) mmol/L Carbon Dioxide 11 L* D (22-30) mmol/L Anion Gap 23 H (10-20) BUN 116 H* D (9-20) mg/dL Creatinine 4.7 H (0.8-1.5) mg/dL Est GFR ( Amer) 15 Est GFR (Non-Af Amer) 12 POC Glucose (mg/dL) (65-110) mg/dL Random Glucose 126 H (75-110) mg/dL Lactic Acid (0.7-2.1) mmol/L Calcium 9.3 (8.6-10.4) mg/dl Phosphorus 8.1 H (2.5-4.5) mg/dL Magnesium 1.9 (1.6-2.3) mg/dL Total Bilirubin (0.2-1.3) mg/dL AST (17-59) U/L ALT (21-72) U/L Alkaline Phosphatase (38-126) U/L Total Creatine Kinase (55-170) U/L CK-MB (Mass) (0.0-3.38) ng/mL Troponin I (0.00-0.120) ng/mL NT-Pro-B Natriuret Pep (0-900) pg/mL Total Protein (6.3-8.3) g/dL Albumin (3.5-5.0) g/dL Globulin (2.2-3.9) gm/dL Albumin/Globulin Ratio (1.0-2.1) Triglycerides (0-149) mg/dL Cholesterol (0-199) mg/dL LDL Cholesterol Direct (0-129) mg/dL HDL Cholesterol (30-70) mg/dL Procalcitonin (0.19-0.49) NG/ML TSH 3rd Generation (0.46-4.68) mIU/L Arterial Blood Potassium 2.3 L* (3.6-5.2) mmol/L Venous Blood Potassium 4.0 (3.6-5.2) mmol/L Urine Color (YELLOW) Urine Clarity (Clear) Urine pH (5.0-8.0) Ur Specific [place] (1.003-1.030) Urine Protein (NEGATIVE) mg/dL Urine Glucose (UA) (Normal) mg/dL Urine Ketones (NEGATIVE) mg/dL Urine Blood (NEGATIVE) Urine Nitrate (NEGATIVE) Urine Bilirubin (NEGATIVE) Urine Urobilinogen (0.2-1.0) mg/dL Ur Leukocyte Esterase (Negative) [place]/uL Urine WBC (Auto) (0-5) /hpf Urine RBC (Auto) (0-3) /hpf Ur Squamous Epith Cells (0-5) /hpf Urine Bacteria (<OCC) Random Vancomycin ug/mL Digoxin (0.8-2.0) ng/mL Urine Opiates Screen (NEGATIVE) Urine Methadone Screen (NEGATIVE) Ur Barbiturates Screen (NEGATIVE) Ur Phencyclidine Scrn (NEGATIVE) Ur Amphetamines Screen (NEGATIVE) U Benzodiazepines Scrn (NEGATIVE) U Oth Cocaine Metabols (NEGATIVE) U Cannabinoids Screen (NEGATIVE) Hep Bs Antigen (NEGATIVE) Blood Type Antibody Screen 04/02/18 04/02/18 04/02/18 Range/Units 20:24 19:27 18:51 WBC (4.8-10.8) K/uL RBC (4.40-5.90) Mil/uL Hgb (12.0-18.0) g/dL Hct (35.0-51.0) % MCV (80.0-94.0) fL MCH (27.0-31.0) pg MCHC (33.0-37.0) g/dL RDW (11.5-14.5) % Plt Count (130-400) K/uL MPV (7.2-11.7) fL Neut % (Auto) (50.0-75.0) % Lymph % (Auto) (20.0-40.0) % [place] % (Auto) (0.0-10.0) % Eos % (Auto) (0.0-4.0) % Baso % (Auto) (0.0-2.0) % Neut # (Auto) (1.8-7.0) K/uL Lymph # (Auto) (1.0-4.3) K/uL [place] # (Auto) (0.0-0.8) K/uL Eos # (Auto) (0.0-0.7) K/uL Baso # (Auto) (0.0-0.2) K/uL Neutrophils % (Manual) (50-75) % Band Neutrophils % (0-2) % Lymphocytes % (Manual) (20-40) % Monocytes % (Manual) (0-10) % Metamyelocytes % (0-0) % Myelocytes % (0-0) % Toxic Granulation Platelet Estimate (NORMAL) Large Platelets Giant Platelets Polychromasia Hypochromasia (manual) Poikilocytosis (manual Anisocytosis (manual) Microcytosis (manual) Macrocytosis (manual) Shaan Cells PT (9.7-12.2) SECONDS INR APTT (21-34) SECONDS Puncture Site pCO2 (35-45) mm/Hg pO2 (30-55) mm/Hg HCO3 (21-28) mmol/L ABG pH (7.35-7.45) ABG Total CO2 (22-28) mmol/L ABG O2 Saturation (95-98) % ABG Base Excess (-2.0-3.0) mmol/L [place] Test ABG Potassium (3.6-5.2) mmol/L VBG pH (7.32-7.43) VBG pCO2 (40-60) mmHg VBG HCO3 mmol/L VBG Total CO2 (22-28) mmol/L VBG O2 Sat (Calc) (40-65) % VBG Base Excess (0.0-2.0) mmol/L VBG Potassium (3.6-5.2) mmol/L A-a O2 Difference mm/Hg Respiratory Index Sodium (132-148) mmol/l Chloride (98-107) mmol/L Glucose (75-110) mg/dl Lactate (0.7-2.1) mmol/L Liter Flow FiO2 % Inspiratory BiPAP Expiratory BiPAP Crit Value Called To Crit Value Called By Crit Value Read Back Blood Gas Notified Time Potassium (3.6-5.2) mmol/L Carbon Dioxide (22-30) mmol/L Anion Gap (10-20) BUN (9-20) mg/dL Creatinine (0.8-1.5) mg/dL Est GFR ( Amer) Est GFR (Non-Af Amer) POC Glucose (mg/dL) 137 H (65-110) mg/dL Random Glucose (75-110) mg/dL Lactic Acid (0.7-2.1) mmol/L Calcium (8.6-10.4) mg/dl Phosphorus (2.5-4.5) mg/dL Magnesium (1.6-2.3) mg/dL Total Bilirubin (0.2-1.3) mg/dL AST (17-59) U/L ALT (21-72) U/L Alkaline Phosphatase (38-126) U/L Total Creatine Kinase (55-170) U/L CK-MB (Mass) (0.0-3.38) ng/mL Troponin I (0.00-0.120) ng/mL NT-Pro-B Natriuret Pep (0-900) pg/mL Total Protein (6.3-8.3) g/dL Albumin (3.5-5.0) g/dL Globulin (2.2-3.9) gm/dL Albumin/Globulin Ratio (1.0-2.1) Triglycerides (0-149) mg/dL Cholesterol (0-199) mg/dL LDL Cholesterol Direct (0-129) mg/dL HDL Cholesterol (30-70) mg/dL Procalcitonin 6.48 H (0.19-0.49) NG/ML TSH 3rd Generation (0.46-4.68) mIU/L Arterial Blood Potassium (3.6-5.2) mmol/L Venous Blood Potassium (3.6-5.2) mmol/L Urine Color (YELLOW) Urine Clarity (Clear) Urine pH (5.0-8.0) Ur Specific [place] (1.003-1.030) Urine Protein (NEGATIVE) mg/dL Urine Glucose (UA) (Normal) mg/dL Urine Ketones (NEGATIVE) mg/dL Urine Blood (NEGATIVE) Urine Nitrate (NEGATIVE) Urine Bilirubin (NEGATIVE) Urine Urobilinogen (0.2-1.0) mg/dL Ur Leukocyte Esterase (Negative) [place]/uL Urine WBC (Auto) (0-5) /hpf Urine RBC (Auto) (0-3) /hpf Ur Squamous Epith Cells (0-5) /hpf Urine Bacteria (<OCC) Random Vancomycin ug/mL Digoxin (0.8-2.0) ng/mL Urine Opiates Screen (NEGATIVE) Urine Methadone Screen (NEGATIVE) Ur Barbiturates Screen (NEGATIVE) Ur Phencyclidine Scrn (NEGATIVE) Ur Amphetamines Screen (NEGATIVE) U Benzodiazepines Scrn (NEGATIVE) U Oth Cocaine Metabols (NEGATIVE) U Cannabinoids Screen (NEGATIVE) Hep Bs Antigen Negative (NEGATIVE) Blood Type Antibody Screen 06/04/02/18 04/02/18 Range/Units 18:36 18:08 18:08 WBC (4.8-10.8) K/uL RBC (4.40-5.90) Mil/uL Hgb (12.0-18.0) g/dL Hct (35.0-51.0) % MCV (80.0-94.0) fL MCH (27.0-31.0) pg MCHC (33.0-37.0) g/dL RDW (11.5-14.5) % Plt Count (130-400) K/uL MPV (7.2-11.7) fL Neut % (Auto) (50.0-75.0) % Lymph % (Auto) (20.0-40.0) % [place] % (Auto) (0.0-10.0) % Eos % (Auto) (0.0-4.0) % Baso % (Auto) (0.0-2.0) % Neut # (Auto) (1.8-7.0) K/uL Lymph # (Auto) (1.0-4.3) K/uL [place] # (Auto) (0.0-0.8) K/uL Eos # (Auto) (0.0-0.7) K/uL Baso # (Auto) (0.0-0.2) K/uL Neutrophils % (Manual) (50-75) % Band Neutrophils % (0-2) % Lymphocytes % (Manual) (20-40) % Monocytes % (Manual) (0-10) % Metamyelocytes % (0-0) % Myelocytes % (0-0) % Toxic Granulation Platelet Estimate (NORMAL) Large Platelets Giant Platelets Polychromasia Hypochromasia (manual) Poikilocytosis (manual Anisocytosis (manual) Microcytosis (manual) Macrocytosis (manual) Shaan Cells PT (9.7-12.2) SECONDS INR APTT (21-34) SECONDS Puncture Site pCO2 (35-45) mm/Hg pO2 44 (30-55) mm/Hg HCO3 (21-28) mmol/L ABG pH (7.35-7.45) ABG Total CO2 (22-28) mmol/L ABG O2 Saturation (95-98) % ABG Base Excess (-2.0-3.0) mmol/L [place] Test ABG Potassium (3.6-5.2) mmol/L VBG pH 7.07 L* (7.32-7.43) VBG pCO2 15 L* (40-60) mmHg VBG HCO3 5.3 mmol/L VBG Total CO2 4.8 L (22-28) mmol/L VBG O2 Sat (Calc) 82.4 H (40-65) % VBG Base Excess -23.8 L (0.0-2.0) mmol/L VBG Potassium 4.1 (3.6-5.2) mmol/L A-a O2 Difference mm/Hg Respiratory Index Sodium 135.0 (132-148) mmol/l Chloride 114.0 H (98-107) mmol/L Glucose 108 (75-110) mg/dl Lactate 2.3 H (0.7-2.1) mmol/L Liter Flow FiO2 % Inspiratory BiPAP Expiratory BiPAP Crit Value 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 Crit Value Called By [facility] Crit Value Read Back Y Blood Gas Notified Time 1840 Potassium (3.6-5.2) mmol/L Carbon Dioxide (22-30) mmol/L Anion Gap (10-20) BUN (9-20) mg/dL Creatinine (0.8-1.5) mg/dL Est GFR ( Amer) Est GFR (Non-Af Amer) POC Glucose (mg/dL) (65-110) mg/dL Random Glucose (75-110) mg/dL Lactic Acid 3.1 H (0.7-2.1) mmol/L Calcium (8.6-10.4) mg/dl Phosphorus 12.4 H (2.5-4.5) mg/dL Magnesium 2.4 H (1.6-2.3) mg/dL Total Bilirubin (0.2-1.3) mg/dL AST (17-59) U/L ALT (21-72) U/L Alkaline Phosphatase (38-126) U/L Total Creatine Kinase (55-170) U/L CK-MB (Mass) (0.0-3.38) ng/mL Troponin I < 0.0120 (0.00-0.120) ng/mL NT-Pro-B Natriuret Pep 5290 H (0-900) pg/mL Total Protein (6.3-8.3) g/dL Albumin (3.5-5.0) g/dL Globulin (2.2-3.9) gm/dL Albumin/Globulin Ratio (1.0-2.1) Triglycerides (0-149) mg/dL Cholesterol (0-199) mg/dL LDL Cholesterol Direct (0-129) mg/dL HDL Cholesterol (30-70) mg/dL Procalcitonin (0.19-0.49) NG/ML TSH 3rd Generation 2.67 (0.46-4.68) mIU/L Arterial Blood Potassium (3.6-5.2) mmol/L Venous Blood Potassium 4.1 (3.6-5.2) mmol/L Urine Color (YELLOW) Urine Clarity (Clear) Urine pH (5.0-8.0) Ur Specific [place] (1.003-1.030) Urine Protein (NEGATIVE) mg/dL Urine Glucose (UA) (Normal) mg/dL Urine Ketones (NEGATIVE) mg/dL Urine Blood (NEGATIVE) Urine Nitrate (NEGATIVE) Urine Bilirubin (NEGATIVE) Urine Urobilinogen (0.2-1.0) mg/dL Ur Leukocyte Esterase (Negative) [place]/uL Urine WBC (Auto) (0-5) /hpf Urine RBC (Auto) (0-3) /hpf Ur Squamous Epith Cells (0-5) /hpf Urine Bacteria (<OCC) Random Vancomycin ug/mL Digoxin (0.8-2.0) ng/mL Urine Opiates Screen (NEGATIVE) Urine Methadone Screen (NEGATIVE) Ur Barbiturates Screen (NEGATIVE) Ur Phencyclidine Scrn (NEGATIVE) Ur Amphetamines Screen (NEGATIVE) U Benzodiazepines Scrn (NEGATIVE) U Oth Cocaine Metabols (NEGATIVE) U Cannabinoids Screen (NEGATIVE) Hep Bs Antigen (NEGATIVE) Blood Type Antibody Screen 04/02/18 04/02/18 04/02/18 Range/Units 16:10 16:03 15:30 WBC (4.8-10.8) K/uL RBC (4.40-5.90) Mil/uL Hgb (12.0-18.0) g/dL Hct (35.0-51.0) % MCV (80.0-94.0) fL MCH (27.0-31.0) pg MCHC (33.0-37.0) g/dL RDW (11.5-14.5) % Plt Count (130-400) K/uL MPV (7.2-11.7) fL Neut % (Auto) (50.0-75.0) % Lymph % (Auto) (20.0-40.0) % [place] % (Auto) (0.0-10.0) % Eos % (Auto) (0.0-4.0) % Baso % (Auto) (0.0-2.0) % Neut # (Auto) (1.8-7.0) K/uL Lymph # (Auto) (1.0-4.3) K/uL [place] # (Auto) (0.0-0.8) K/uL Eos # (Auto) (0.0-0.7) K/uL Baso # (Auto) (0.0-0.2) K/uL Neutrophils % (Manual) (50-75) % Band Neutrophils % (0-2) % Lymphocytes % (Manual) (20-40) % Monocytes % (Manual) (0-10) % Metamyelocytes % (0-0) % Myelocytes % (0-0) % Toxic Granulation Platelet Estimate (NORMAL) Large Platelets Giant Platelets Polychromasia Hypochromasia (manual) Poikilocytosis (manual Anisocytosis (manual) Microcytosis (manual) Macrocytosis (manual) Shaan Cells PT (9.7-12.2) SECONDS INR APTT (21-34) SECONDS Puncture Site pCO2 (35-45) mm/Hg pO2 60 H (30-55) mm/Hg HCO3 (21-28) mmol/L ABG pH (7.35-7.45) ABG Total CO2 (22-28) mmol/L ABG O2 Saturation (95-98) % ABG Base Excess (-2.0-3.0) mmol/L [place] Test ABG Potassium (3.6-5.2) mmol/L VBG pH 6.87 L* (7.32-7.43) VBG pCO2 17 L* (40-60) mmHg VBG HCO3 1.2 mmol/L VBG Total CO2 3.6 L (22-28) mmol/L VBG O2 Sat (Calc) 90.1 H (40-65) % VBG Base Excess -29.2 L (0.0-2.0) mmol/L VBG Potassium 11.7 H* (3.6-5.2) mmol/L A-a O2 Difference mm/Hg Respiratory Index Sodium 131 L 123.0 L (132-148) mmol/l Chloride 109 H 99.0 (98-107) mmol/L Glucose 202 H (75-110) mg/dl Lactate 3.3 H (0.7-2.1) mmol/L Liter Flow FiO2 % Inspiratory BiPAP Expiratory BiPAP Crit Value 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 Crit Value Called By Dennis raza md Crit Value Read Back Y Blood Gas Notified Time 1535 Potassium 7.1 H* D (3.6-5.2) mmol/L Carbon Dioxide < 5 L* D (22-30) mmol/L Anion Gap 24 H (10-20) BUN 150 H* D (9-20) mg/dL Creatinine 6.2 H (0.8-1.5) mg/dL Est GFR ( Amer) 11 Est GFR (Non-Af Amer) 9 POC Glucose (mg/dL) (65-110) mg/dL Random Glucose 176 H (75-110) mg/dL Lactic Acid (0.7-2.1) mmol/L Calcium 7.0 L (8.6-10.4) mg/dl Phosphorus (2.5-4.5) mg/dL Magnesium (1.6-2.3) mg/dL Total Bilirubin 0.8 (0.2-1.3) mg/dL AST 25 (17-59) U/L ALT 17 L (21-72) U/L Alkaline Phosphatase 95 (38-126) U/L Total Creatine Kinase 476 H (55-170) U/L CK-MB (Mass) 12.1 H (0.0-3.38) ng/mL Troponin I < 0.0120 (0.00-0.120) ng/mL NT-Pro-B Natriuret Pep 5000 H (0-900) pg/mL Total Protein 5.9 L (6.3-8.3) g/dL Albumin 2.9 L (3.5-5.0) g/dL Globulin 3.1 (2.2-3.9) gm/dL Albumin/Globulin Ratio 0.9 L (1.0-2.1) Triglycerides (0-149) mg/dL Cholesterol (0-199) mg/dL LDL Cholesterol Direct (0-129) mg/dL HDL Cholesterol (30-70) mg/dL Procalcitonin (0.19-0.49) NG/ML TSH 3rd Generation (0.46-4.68) mIU/L Arterial Blood Potassium (3.6-5.2) mmol/L Venous Blood Potassium 11.7 H* (3.6-5.2) mmol/L Urine Color Yellow (YELLOW) Urine Clarity Hazy (Clear) Urine pH 5.0 (5.0-8.0) Ur Specific [place] 1.014 (1.003-1.030) Urine Protein Negative (NEGATIVE) mg/dL Urine Glucose (UA) Normal (Normal) mg/dL Urine Ketones Negative (NEGATIVE) mg/dL Urine Blood 1+ H (NEGATIVE) Urine Nitrate Negative (NEGATIVE) Urine Bilirubin Negative (NEGATIVE) Urine Urobilinogen Normal (0.2-1.0) mg/dL Ur Leukocyte Esterase 1+ H (Negative) [place]/uL Urine WBC (Auto) 7 H (0-5) /hpf Urine RBC (Auto) 7 H (0-3) /hpf Ur Squamous Epith Cells 1 (0-5) /hpf Urine Bacteria Rare (<OCC) Random Vancomycin ug/mL Digoxin (0.8-2.0) ng/mL Urine Opiates Screen (NEGATIVE) Urine Methadone Screen (NEGATIVE) Ur Barbiturates Screen (NEGATIVE) Ur Phencyclidine Scrn (NEGATIVE) Ur Amphetamines Screen (NEGATIVE) U Benzodiazepines Scrn (NEGATIVE) U Oth Cocaine Metabols (NEGATIVE) U Cannabinoids Screen (NEGATIVE) Hep Bs Antigen (NEGATIVE) Blood Type Antibody Screen 04/02/18 04/02/18 Range/Units 15:25 15:25 WBC 52.3 H* D (4.8-10.8) K/uL RBC 4.32 L (4.40-5.90) Mil/uL Hgb 13.2 D (12.0-18.0) g/dL Hct 41.2 (35.0-51.0) % MCV 95.5 H D (80.0-94.0) fL MCH 30.6 (27.0-31.0) pg MCHC 32.0 L (33.0-37.0) g/dL RDW 15.6 H (11.5-14.5) % Plt Count 516 H D (130-400) K/uL MPV 8.7 (7.2-11.7) fL Neut % (Auto) 96.4 H (50.0-75.0) % Lymph % (Auto) 0.7 L (20.0-40.0) % [place] % (Auto) 2.3 (0.0-10.0) % Eos % (Auto) 0.1 (0.0-4.0) % Baso % (Auto) 0.5 (0.0-2.0) % Neut # (Auto) 50.4 H (1.8-7.0) K/uL Lymph # (Auto) 0.4 L (1.0-4.3) K/uL [place] # (Auto) 1.2 H (0.0-0.8) K/uL Eos # (Auto) 0.0 (0.0-0.7) K/uL Baso # (Auto) 0.3 H (0.0-0.2) K/uL Neutrophils % (Manual) 90 H (50-75) % Band Neutrophils % 2 (0-2) % Lymphocytes % (Manual) 1 L (20-40) % Monocytes % (Manual) 4 (0-10) % Metamyelocytes % 1 H (0-0) % Myelocytes % 2 H (0-0) % Toxic Granulation Present Platelet Estimate Increased H (NORMAL) Large Platelets Present Giant Platelets Polychromasia Hypochromasia (manual) Poikilocytosis (manual Slight Anisocytosis (manual) Slight Microcytosis (manual) Slight Macrocytosis (manual) Slight [place] Cells PT 13.3 H (9.7-12.2) SECONDS INR 1.2 APTT 21 (21-34) SECONDS Puncture Site pCO2 (35-45) mm/Hg pO2 (30-55) mm/Hg HCO3 (21-28) mmol/L ABG pH (7.35-7.45) ABG Total CO2 (22-28) mmol/L ABG O2 Saturation (95-98) % ABG Base Excess (-2.0-3.0) mmol/L [place] Test ABG Potassium (3.6-5.2) mmol/L VBG pH (7.32-7.43) VBG pCO2 (40-60) mmHg VBG HCO3 mmol/L VBG Total CO2 (22-28) mmol/L VBG O2 Sat (Calc) (40-65) % VBG Base Excess (0.0-2.0) mmol/L VBG Potassium (3.6-5.2) mmol/L A-a O2 Difference mm/Hg Respiratory Index Sodium (132-148) mmol/l Chloride (98-107) mmol/L Glucose (75-110) mg/dl Lactate (0.7-2.1) mmol/L Liter Flow FiO2 % Inspiratory BiPAP Expiratory BiPAP Crit Value Called To Crit Value Called By Crit Value Read Back Blood Gas Notified Time Potassium (3.6-5.2) mmol/L Carbon Dioxide (22-30) mmol/L Anion Gap (10-20) BUN (9-20) mg/dL Creatinine (0.8-1.5) mg/dL Est GFR ( Amer) Est GFR (Non-Af Amer) POC Glucose (mg/dL) (65-110) mg/dL Random Glucose (75-110) mg/dL Lactic Acid (0.7-2.1) mmol/L Calcium (8.6-10.4) mg/dl Phosphorus (2.5-4.5) mg/dL Magnesium (1.6-2.3) mg/dL Total Bilirubin (0.2-1.3) mg/dL AST (17-59) U/L ALT (21-72) U/L Alkaline Phosphatase (38-126) U/L Total Creatine Kinase (55-170) U/L CK-MB (Mass) (0.0-3.38) ng/mL Troponin I (0.00-0.120) ng/mL NT-Pro-B Natriuret Pep (0-900) pg/mL Total Protein (6.3-8.3) g/dL Albumin (3.5-5.0) g/dL Globulin (2.2-3.9) gm/dL Albumin/Globulin Ratio (1.0-2.1) Triglycerides (0-149) mg/dL Cholesterol (0-199) mg/dL LDL Cholesterol Direct (0-129) mg/dL HDL Cholesterol (30-70) mg/dL Procalcitonin (0.19-0.49) NG/ML TSH 3rd Generation (0.46-4.68) mIU/L Arterial Blood Potassium (3.6-5.2) mmol/L Venous Blood Potassium (3.6-5.2) mmol/L Urine Color (YELLOW) Urine Clarity (Clear) Urine pH (5.0-8.0) Ur Specific [place] (1.003-1.030) Urine Protein (NEGATIVE) mg/dL Urine Glucose (UA) (Normal) mg/dL Urine Ketones (NEGATIVE) mg/dL Urine Blood (NEGATIVE) Urine Nitrate (NEGATIVE) Urine Bilirubin (NEGATIVE) Urine Urobilinogen (0.2-1.0) mg/dL Ur Leukocyte Esterase (Negative) [place]/uL Urine WBC (Auto) (0-5) /hpf Urine RBC (Auto) (0-3) /hpf Ur Squamous Epith Cells (0-5) /hpf Urine Bacteria (<OCC) Random Vancomycin ug/mL Digoxin (0.8-2.0) ng/mL Urine Opiates Screen (NEGATIVE) Urine Methadone Screen (NEGATIVE) Ur Barbiturates Screen (NEGATIVE) Ur Phencyclidine Scrn (NEGATIVE) Ur Amphetamines Screen (NEGATIVE) U Benzodiazepines Scrn (NEGATIVE) U Oth Cocaine Metabols (NEGATIVE) U Cannabinoids Screen (NEGATIVE) Hep Bs Antigen (NEGATIVE) Blood Type Antibody Screen Laboratory Results - last 24 hr 04/02/18 04/02/18 04/02/18 15:25 15:25 15:30 WBC 52.3 H* D RBC 4.32 L Hgb 13.2 D Hct 41.2 MCV 95.5 H D MCH 30.6 MCHC 32.0 L RDW 15.6 H Plt Count 516 H D MPV 8.7 Neut % (Auto) 96.4 H Lymph % (Auto) 0.7 L [place] % (Auto) 2.3 Eos % (Auto) 0.1 Baso % (Auto) 0.5 Neut # (Auto) 50.4 H Lymph # (Auto) 0.4 L [place] # (Auto) 1.2 H Eos # (Auto) 0.0 Baso # (Auto) 0.3 H Neutrophils % (Manual) 90 H Band Neutrophils % 2 Lymphocytes % (Manual) 1 L Monocytes % (Manual) 4 Metamyelocytes % 1 H Myelocytes % 2 H Toxic Granulation Present Platelet Estimate Increased H Large Platelets Present Giant Platelets Polychromasia Hypochromasia (manual) Poikilocytosis (manual Slight Anisocytosis (manual) Slight Microcytosis (manual) Slight Macrocytosis (manual) Slight [place] Cells PT 13.3 H INR 1.2 APTT 21 Puncture Site pCO2 pO2 60 H HCO3 ABG pH ABG Total CO2 ABG O2 Saturation ABG Base Excess [place] Test ABG Potassium VBG pH 6.87 L* VBG pCO2 17 L* VBG HCO3 1.2 VBG Total CO2 3.6 L VBG O2 Sat (Calc) 90.1 H VBG Base Excess -29.2 L VBG Potassium 11.7 H* A-a O2 Difference Respiratory Index Sodium 123.0 L Chloride 99.0 Glucose 202 H Lactate 3.3 H Liter Flow FiO2 Inspiratory BiPAP Expiratory BiPAP Crit Value 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 Crit Value Called By Dennis raza md Crit Value Read Back Y Blood Gas Notified Time 1535 Potassium Carbon Dioxide Anion Gap BUN Creatinine Est GFR ( Amer) Est GFR (Non-Af Amer) POC Glucose (mg/dL) Random Glucose Lactic Acid Calcium Phosphorus Magnesium Total Bilirubin AST ALT Alkaline Phosphatase Total Creatine Kinase CK-MB (Mass) Troponin I NT-Pro-B Natriuret Pep Total Protein Albumin Globulin Albumin/Globulin Ratio Triglycerides Cholesterol LDL Cholesterol Direct HDL Cholesterol Procalcitonin TSH 3rd Generation Arterial Blood Potassium Venous Blood Potassium 11.7 H* Urine Color Urine Clarity Urine pH Ur Specific [place] Urine Protein Urine Glucose (UA) Urine Ketones Urine Blood Urine Nitrate Urine Bilirubin Urine Urobilinogen Ur Leukocyte Esterase Urine WBC (Auto) Urine RBC (Auto) Ur Squamous Epith Cells Urine Bacteria Random Vancomycin Digoxin Urine Opiates Screen Urine Methadone Screen Ur Barbiturates Screen Ur Phencyclidine Scrn Ur Amphetamines Screen U Benzodiazepines Scrn U Oth Cocaine Metabols U Cannabinoids Screen Hep Bs Antigen Blood Type Antibody Screen 04/02/18 04/02/18 04/02/18 16:03 16:10 18:08 WBC RBC Hgb Hct MCV MCH MCHC RDW Plt Count MPV Neut % (Auto) Lymph % (Auto) [place] % (Auto) Eos % (Auto) Baso % (Auto) Neut # (Auto) Lymph # (Auto) [place] # (Auto) Eos # (Auto) Baso # (Auto) Neutrophils % (Manual) Band Neutrophils % Lymphocytes % (Manual) Monocytes % (Manual) Metamyelocytes % Myelocytes % Toxic Granulation Platelet Estimate Large Platelets Giant Platelets Polychromasia Hypochromasia (manual) Poikilocytosis (manual Anisocytosis (manual) Microcytosis (manual) Macrocytosis (manual) [place] Cells PT INR APTT Puncture Site pCO2 pO2 HCO3 ABG pH ABG Total CO2 ABG O2 Saturation ABG Base Excess [place] Test ABG Potassium VBG pH VBG pCO2 VBG HCO3 VBG Total CO2 VBG O2 Sat (Calc) VBG Base Excess VBG Potassium A-a O2 Difference Respiratory Index Sodium 131 L Chloride 109 H Glucose Lactate Liter Flow FiO2 Inspiratory BiPAP Expiratory BiPAP Crit Value Called To Crit Value Called By Crit Value Read Back Blood Gas Notified Time Potassium 7.1 H* D Carbon Dioxide < 5 L* D Anion Gap 24 H BUN 150 H* D Creatinine 6.2 H Est GFR ( Amer) 11 Est GFR (Non-Af Amer) 9 POC Glucose (mg/dL) Random Glucose 176 H Lactic Acid Calcium 7.0 L Phosphorus 12.4 H Magnesium 2.4 H Total Bilirubin 0.8 AST 25 ALT 17 L Alkaline Phosphatase 95 Total Creatine Kinase 476 H CK-MB (Mass) 12.1 H Troponin I < 0.0120 < 0.0120 NT-Pro-B Natriuret Pep 5000 H 5290 H Total Protein 5.9 L Albumin 2.9 L Globulin 3.1 Albumin/Globulin Ratio 0.9 L Triglycerides Cholesterol LDL Cholesterol Direct HDL Cholesterol Procalcitonin TSH 3rd Generation 2.67 Arterial Blood Potassium Venous Blood Potassium Urine Color Yellow Urine Clarity Hazy Urine pH 5.0 Ur Specific [place] 1.014 Urine Protein Negative Urine Glucose (UA) Normal Urine Ketones Negative Urine Blood 1+ H Urine Nitrate Negative Urine Bilirubin Negative Urine Urobilinogen Normal Ur Leukocyte Esterase 1+ H Urine WBC (Auto) 7 H Urine RBC (Auto) 7 H Ur Squamous Epith Cells 1 Urine Bacteria Rare Random Vancomycin Digoxin Urine Opiates Screen Urine Methadone Screen Ur Barbiturates Screen Ur Phencyclidine Scrn Ur Amphetamines Screen U Benzodiazepines Scrn U Oth Cocaine Metabols U Cannabinoids Screen Hep Bs Antigen Blood Type Antibody Screen 04/02/18 04/02/18 04/02/18 18:08 18:36 18:51 WBC RBC Hgb Hct MCV MCH MCHC RDW Plt Count MPV Neut % (Auto) Lymph % (Auto) [place] % (Auto) Eos % (Auto) Baso % (Auto) Neut # (Auto) Lymph # (Auto) [place] # (Auto) Eos # (Auto) Baso # (Auto) Neutrophils % (Manual) Band Neutrophils % Lymphocytes % (Manual) Monocytes % (Manual) Metamyelocytes % Myelocytes % Toxic Granulation Platelet Estimate Large Platelets Giant Platelets Polychromasia Hypochromasia (manual) Poikilocytosis (manual Anisocytosis (manual) Microcytosis (manual) Macrocytosis (manual) [place] Cells PT INR APTT Puncture Site pCO2 pO2 44 HCO3 ABG pH ABG Total CO2 ABG O2 Saturation ABG Base Excess [place] Test ABG Potassium VBG pH 7.07 L* VBG pCO2 15 L* VBG HCO3 5.3 VBG Total CO2 4.8 L VBG O2 Sat (Calc) 82.4 H VBG Base Excess -23.8 L VBG Potassium 4.1 A-a O2 Difference Respiratory Index Sodium 135.0 Chloride 114.0 H Glucose 108 Lactate 2.3 H Liter Flow FiO2 Inspiratory BiPAP Expiratory BiPAP Crit Value 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 Crit Value Called By Ghazala Crit Value Read Back Y Blood Gas Notified Time 184 Potassium Carbon Dioxide Anion Gap BUN Creatinine Est GFR ( Amer) Est GFR (Non-Af Amer) POC Glucose (mg/dL) Random Glucose Lactic Acid 3.1 H Calcium Phosphorus Magnesium Total Bilirubin AST ALT Alkaline Phosphatase Total Creatine Kinase CK-MB (Mass) Troponin I NT-Pro-B Natriuret Pep Total Protein Albumin Globulin Albumin/Globulin Ratio Triglycerides Cholesterol LDL Cholesterol Direct HDL Cholesterol Procalcitonin 6.48 H TSH 3rd Generation Arterial Blood Potassium Venous Blood Potassium 4.1 Urine Color Urine Clarity Urine pH Ur Specific [place] Urine Protein Urine Glucose (UA) Urine Ketones Urine Blood Urine Nitrate Urine Bilirubin Urine Urobilinogen Ur Leukocyte Esterase Urine WBC (Auto) Urine RBC (Auto) Ur Squamous Epith Cells Urine Bacteria Random Vancomycin Digoxin Urine Opiates Screen Urine Methadone Screen Ur Barbiturates Screen Ur Phencyclidine Scrn Ur Amphetamines Screen U Benzodiazepines Scrn U Oth Cocaine Metabols U Cannabinoids Screen Hep Bs Antigen Blood Type Antibody Screen 04/02/18 04/02/1804/02/18 19:27 20:24 20:40 WBC RBC Hgb Hct MCV MCH MCHC RDW Plt Count MPV Neut % (Auto) Lymph % (Auto) [place] % (Auto) Eos % (Auto) Baso % (Auto) Neut # (Auto) Lymph # (Auto) [place] # (Auto) Eos # (Auto) Baso # (Auto) Neutrophils % (Manual) Band Neutrophils % Lymphocytes % (Manual) Monocytes % (Manual) Metamyelocytes % Myelocytes % Toxic Granulation Platelet Estimate Large Platelets Giant Platelets Polychromasia Hypochromasia (manual) Poikilocytosis (manual Anisocytosis (manual) Microcytosis (manual) Macrocytosis (manual) [place] Cells PT INR APTT Puncture Site Rra pCO2 16 L* pO2 149 H HCO3 12.3 L ABG pH 7.29 L ABG Total CO2 8.2 L ABG O2 Saturation 98.0 ABG Base Excess -16.3 L [place] Test Na ABG Potassium 2.3 L* VBG pH VBG pCO2 VBG HCO3 VBG Total CO2 VBG O2 Sat (Calc) VBG Base Excess VBG Potassium A-a O2 Difference 45.0 Respiratory Index 0.3 Sodium 146.0 Chloride 124.0 H Glucose 100 Lactate 2.5 H Liter Flow 3.0 FiO2 30.0 Inspiratory BiPAP Expiratory BiPAP Crit Value Called To Ranjeet lee Crit Value Called By Ghazala Crit Value Read Back Y Blood Gas Notified Time 2042 Potassium Carbon Dioxide Anion Gap BUN Creatinine Est GFR ( Amer) Est GFR (Non-Af Amer) POC Glucose (mg/dL) 137 H Random Glucose Lactic Acid Calcium Phosphorus Magnesium Total Bilirubin AST ALT Alkaline Phosphatase Total Creatine Kinase CK-MB (Mass) Troponin I NT-Pro-B Natriuret Pep Total Protein Albumin Globulin Albumin/Globulin Ratio Triglycerides Cholesterol LDL Cholesterol Direct HDL Cholesterol Procalcitonin TSH 3rd Generation Arterial Blood Potassium 2.3 L* Venous Blood Potassium Urine Color Urine Clarity Urine pH Ur Specific [place] Urine Protein Urine Glucose (UA) Urine Ketones Urine Blood Urine Nitrate Urine Bilirubin Urine Urobilinogen Ur Leukocyte Esterase Urine WBC (Auto) Urine RBC (Auto) Ur Squamous Epith Cells Urine Bacteria Random Vancomycin Digoxin Urine Opiates Screen Urine Methadone Screen Ur Barbiturates Screen Ur Phencyclidine Scrn Ur Amphetamines Screen U Benzodiazepines Scrn U Oth Cocaine Metabols U Cannabinoids Screen Hep Bs Antigen Negative Blood Type Antibody Screen 04/02/18 04/02/18 04/02/18 20:49 20:50 21:16 WBC RBC Hgb Hct MCV MCH MCHC RDW Plt Count MPV Neut % (Auto) Lymph % (Auto) [place] % (Auto) Eos % (Auto) Baso % (Auto) Neut # (Auto) Lymph # (Auto) [place] # (Auto) Eos # (Auto) Baso # (Auto) Neutrophils % (Manual) Band Neutrophils % Lymphocytes % (Manual) Monocytes % (Manual) Metamyelocytes % Myelocytes % Toxic Granulation Platelet Estimate Large Platelets Giant Platelets Polychromasia Hypochromasia (manual) Poikilocytosis (manual Anisocytosis (manual) Microcytosis (manual) Macrocytosis (manual) [place] Cells PT INR APTT Puncture Site pCO2 pO2 38 HCO3 ABG pH ABG Total CO2 ABG O2 Saturation ABG Base Excess [place] Test ABG Potassium VBG pH 7.24 L VBG pCO2 27 L VBG HCO3 12.9 VBG Total CO2 12.4 L VBG O2 Sat (Calc) 76.8 H VBG Base Excess -14.2 L VBG Potassium 4.0 A-a O2 Difference Respiratory Index Sodium 137.0 141 Chloride 108.0 H 111 H Glucose 125 H Lactate 4.4 H* Liter Flow FiO2 Inspiratory BiPAP Expiratory BiPAP Crit Value Called To Ranjeet lee Crit Value Called By Ghazaal Crit Value Read Back Y Blood Gas Notified Time 2052 Potassium 4.1 Carbon Dioxide 11 L* D Anion Gap 23 H BUN 116 H* D Creatinine 4.7 H Est GFR ( Amer) 15 Est GFR (Non-Af Amer) 12 POC Glucose (mg/dL) Random Glucose 126 H Lactic Acid 4.1 H* Calcium 9.3 Phosphorus 8.1 H Magnesium 1.9 Total Bilirubin AST ALT Alkaline Phosphatase Total Creatine Kinase CK-MB (Mass) Troponin I NT-Pro-B Natriuret Pep Total Protein Albumin Globulin Albumin/Globulin Ratio Triglycerides Cholesterol LDL Cholesterol Direct HDL Cholesterol Procalcitonin TSH 3rd Generation Arterial Blood Potassium Venous Blood Potassium 4.0 Urine Color Urine Clarity Urine pH Ur Specific [place] Urine Protein Urine Glucose (UA) Urine Ketones Urine Blood Urine Nitrate Urine Bilirubin Urine Urobilinogen Ur Leukocyte Esterase Urine WBC (Auto) Urine RBC (Auto) Ur Squamous Epith Cells Urine Bacteria Random Vancomycin Digoxin Urine Opiates Screen Urine Methadone Screen Ur Barbiturates Screen Ur Phencyclidine Scrn Ur Amphetamines Screen U Benzodiazepines Scrn U Oth Cocaine Metabols U Cannabinoids Screen Hep Bs Antigen Blood Type Antibody Screen 04/02/18 04/02/18 04/02/18 21:16 22:30 22:42 WBC 22.6 H D RBC 3.73 L Hgb 11.5 L Hct 34.3 L MCV 92.0 D MCH 30.9 MCHC 33.6 RDW 14.6 H Plt Count 312 D MPV 8.2 Neut % (Auto) 97.6 H Lymph % (Auto) 0.8 L [place] % (Auto) 1.5 Eos % (Auto) 0.0 Baso % (Auto) 0.1 Neut # (Auto) 22.1 H Lymph # (Auto) 0.2 L [place] # (Auto) 0.3 Eos # (Auto) 0.0 Baso # (Auto) 0.0 Neutrophils % (Manual) 86 H Band Neutrophils % 12 H* Lymphocytes % (Manual) TEST NOT PERFORMED Monocytes % (Manual) 2 Metamyelocytes % Myelocytes % Toxic Granulation Present Platelet Estimate Normal Large Platelets Present Giant Platelets Present Polychromasia Slight Hypochromasia (manual) Slight Poikilocytosis (manual Slight Anisocytosis (manual) Slight Microcytosis (manual) Slight Macrocytosis (manual) Slight [place] Cells Slight PT INR APTT Puncture Site Lra pCO2 31 L pO2 20 L* HCO3 15.3 L ABG pH 7.30 L ABG Total CO2 16.3 L ABG O2 Saturation 40.2 L ABG Base Excess -9.9 L [place] Test Na ABG Potassium 3.3 L VBG pH VBG pCO2 VBG HCO3 VBG Total CO2 VBG O2 Sat (Calc) VBG Base Excess VBG Potassium A-a O2 Difference 298.0 Respiratory Index 14.9 Sodium 140.0 Chloride 107.0 Glucose 158 H Lactate 5.8 H* Liter Flow FiO2 50.0 Inspiratory BiPAP 20 Expiratory BiPAP 10 Crit Value Called To Francisco Javier lee Crit Value Called By Ghazala Crit Value Read Back Y Blood Gas Notified Time 9658 Potassium Carbon Dioxide Anion Gap BUN Creatinine Est GFR ( Amer) Est GFR (Non-Af Amer) POC Glucose (mg/dL) Random Glucose Lactic Acid Calcium Phosphorus Magnesium Total Bilirubin AST ALT Alkaline Phosphatase Total Creatine Kinase CK-MB (Mass) Troponin I NT-Pro-B Natriuret Pep Total Protein Albumin Globulin Albumin/Globulin Ratio Triglycerides Cholesterol LDL Cholesterol Direct HDL Cholesterol Procalcitonin TSH 3rd Generation Arterial Blood Potassium 3.3 L Venous Blood Potassium Urine Color Urine Clarity Urine pH Ur Specific [place] Urine Protein Urine Glucose (UA) Urine Ketones Urine Blood Urine Nitrate Urine Bilirubin Urine Urobilinogen Ur Leukocyte Esterase Urine WBC (Auto) Urine RBC (Auto) Ur Squamous Epith Cells Urine Bacteria Random Vancomycin Digoxin < 0.4 L Urine Opiates Screen Urine Methadone Screen Ur Barbiturates Screen Ur Phencyclidine Scrn Ur Amphetamines Screen U Benzodiazepines Scrn U Oth Cocaine Metabols U Cannabinoids Screen Hep Bs Antigen Blood Type Antibody Screen 04/02/18 04/03/18 04/03/18 23:04 00:01 00:55 WBC RBC Hgb Hct MCV MCH MCHC RDW Plt Count MPV Neut % (Auto) Lymph % (Auto) [place] % (Auto) Eos % (Auto) Baso % (Auto) Neut # (Auto) Lymph # (Auto) [place] # (Auto) Eos # (Auto) Baso # (Auto) Neutrophils % (Manual) Band Neutrophils % Lymphocytes % (Manual) Monocytes % (Manual) Metamyelocytes % Myelocytes % Toxic Granulation Platelet Estimate Large Platelets Giant Platelets Polychromasia Hypochromasia (manual) Poikilocytosis (manual Anisocytosis (manual) Microcytosis (manual) Macrocytosis (manual) [place] Cells PT INR APTT Puncture Site pCO2 pO2 HCO3 ABG pH ABG Total CO2 ABG O2 Saturation ABG Base Excess [place] Test ABG Potassium VBG pH VBG pCO2 VBG HCO3 VBG Total CO2 VBG O2 Sat (Calc) VBG Base Excess VBG Potassium A-a O2 Difference Respiratory Index Sodium 140 Chloride 109 H Glucose Lactate Liter Flow FiO2 Inspiratory BiPAP Expiratory BiPAP Crit Value Called To Crit Value Called By Crit Value Read Back Blood Gas Notified Time Potassium 3.7 Carbon Dioxide 10 L* Anion Gap 24 H BUN 81 H Creatinine 3.1 H Est GFR ( Amer) 24 Est GFR (Non-Af Amer) 20 POC Glucose (mg/dL) 204 H Random Glucose 206 H Lactic Acid Calcium 7.4 L Phosphorus 5.0 H Magnesium 2.2 Total Bilirubin 1.4 H AST 33 ALT 24 Alkaline Phosphatase 86 Total Creatine Kinase CK-MB (Mass) Troponin I NT-Pro-B Natriuret Pep Total Protein 4.7 L Albumin 2.2 L D Globulin 2.4 Albumin/Globulin Ratio 0.9 L Triglycerides Cholesterol LDL Cholesterol Direct HDL Cholesterol Procalcitonin TSH 3rd Generation Arterial Blood Potassium Venous Blood Potassium Urine Color Urine Clarity Urine pH Ur Specific [place] Urine Protein Urine Glucose (UA) Urine Ketones Urine Blood Urine Nitrate Urine Bilirubin Urine Urobilinogen Ur Leukocyte Esterase Urine WBC (Auto) Urine RBC (Auto) Ur Squamous Epith Cells Urine Bacteria Random Vancomycin Digoxin Urine Opiates Screen Urine Methadone Screen Ur Barbiturates Screen Ur Phencyclidine Scrn Ur Amphetamines Screen U Benzodiazepines Scrn U Oth Cocaine Metabols U Cannabinoids Screen Hep Bs Antigen Blood Type A POSITIVE Antibody Screen Negative 04/03/18 04/03/18 04/03/18 00:55 00:57 02:34 WBC RBC Hgb Hct MCV MCH MCHC RDW Plt Count MPV Neut % (Auto) Lymph % (Auto) [place] % (Auto) Eos % (Auto) Baso % (Auto) Neut # (Auto) Lymph # (Auto) [place] # (Auto) Eos # (Auto) Baso # (Auto) Neutrophils % (Manual) Band Neutrophils % Lymphocytes % (Manual) Monocytes % (Manual) Metamyelocytes % Myelocytes % Toxic Granulation Platelet Estimate Large Platelets Giant Platelets Polychromasia Hypochromasia (manual) Poikilocytosis (manual Anisocytosis (manual) Microcytosis (manual) Macrocytosis (manual) [place] Cells PT INR APTT Puncture Site pCO2 pO2 HCO3 ABG pH ABG Total CO2 ABG O2 Saturation ABG Base Excess [place] Test ABG Potassium VBG pH VBG pCO2 VBG HCO3 VBG Total CO2 VBG O2 Sat (Calc) VBG Base Excess VBG Potassium A-a O2 Difference Respiratory Index Sodium Chloride Glucose Lactate Liter Flow FiO2 Inspiratory BiPAP Expiratory BiPAP Crit Value Called To Crit Value Called By Crit Value Read Back Blood Gas Notified Time Potassium Carbon Dioxide Anion Gap BUN Creatinine Est GFR ( Amer) Est GFR (Non-Af Amer) POC Glucose (mg/dL) Random Glucose Lactic Acid 5.6 H* Calcium Phosphorus Magnesium Total Bilirubin AST ALT Alkaline Phosphatase Total Creatine Kinase CK-MB (Mass) Troponin I 0.0520 NT-Pro-B Natriuret Pep Total Protein Albumin Globulin Albumin/Globulin Ratio Triglycerides Cholesterol LDL Cholesterol Direct HDL Cholesterol Procalcitonin TSH 3rd Generation Arterial Blood Potassium Venous Blood Potassium Urine Color Urine Clarity Urine pH Ur Specific [place] Urine Protein Urine Glucose (UA) Urine Ketones Urine Blood Urine Nitrate Urine Bilirubin Urine Urobilinogen Ur Leukocyte Esterase Urine WBC (Auto) Urine RBC (Auto) Ur Squamous Epith Cells Urine Bacteria Random Vancomycin Digoxin Urine Opiates Screen Negative Urine Methadone Screen Negative Ur Barbiturates Screen Negative Ur Phencyclidine Scrn Negative Ur Amphetamines Screen Negative U Benzodiazepines Scrn Negative U Oth Cocaine Metabols Negative U Cannabinoids Screen Negative Hep Bs Antigen Blood Type Antibody Screen 04/03/18 04/03/18 04/03/18 05:44 06:23 06:23 WBC RBC Hgb Hct MCV MCH MCHC RDW Plt Count MPV Neut % (Auto) Lymph % (Auto) [place] % (Auto) Eos % (Auto) Baso % (Auto) Neut # (Auto) Lymph # (Auto) [place] # (Auto) Eos # (Auto) Baso # (Auto) Neutrophils % (Manual) Band Neutrophils % Lymphocytes % (Manual) Monocytes % (Manual) Metamyelocytes % Myelocytes % Toxic Granulation Platelet Estimate Large Platelets Giant Platelets Polychromasia Hypochromasia (manual) Poikilocytosis (manual Anisocytosis (manual) Microcytosis (manual) Macrocytosis (manual) [place] Cells PT INR APTT Puncture Site pCO2 pO2 HCO3 ABG pH ABG Total CO2 ABG O2 Saturation ABG Base Excess [place] Test ABG Potassium VBG pH VBG pCO2 VBG HCO3 VBG Total CO2 VBG O2 Sat (Calc) VBG Base Excess VBG Potassium A-a O2 Difference Respiratory Index Sodium 139 Chloride 107 Glucose Lactate Liter Flow FiO2 Inspiratory BiPAP Expiratory BiPAP Crit Value Called To Crit Value Called By Crit Value Read Back Blood Gas Notified Time Potassium 4.3 Carbon Dioxide 15 L Anion Gap 21 H BUN 87 H Creatinine 3.2 H Est GFR ( Amer) 23 Est GFR (Non-Af Amer) 19 POC Glucose (mg/dL) 275 H Random Glucose 237 H Lactic Acid 4.6 H* Calcium 7.4 L Phosphorus Magnesium Total Bilirubin 1.6 H AST 39 ALT 30 Alkaline Phosphatase 64 Total Creatine Kinase CK-MB (Mass) Troponin I NT-Pro-B Natriuret Pep Total Protein 4.8 L Albumin 2.4 L Globulin 2.5 Albumin/Globulin Ratio 1.0 Triglycerides 163 H Cholesterol 83 LDL Cholesterol Direct 33 HDL Cholesterol 14 L Procalcitonin TSH 3rd Generation Arterial Blood Potassium Venous Blood Potassium Urine Color Urine Clarity Urine pH Ur Specific [place] Urine Protein Urine Glucose (UA) Urine Ketones Urine Blood Urine Nitrate Urine Bilirubin Urine Urobilinogen Ur Leukocyte Esterase Urine WBC (Auto) Urine RBC (Auto) Ur Squamous Epith Cells Urine Bacteria Random Vancomycin Digoxin Urine Opiates Screen Urine Methadone Screen Ur Barbiturates Screen Ur Phencyclidine Scrn Ur Amphetamines Screen U Benzodiazepines Scrn U Oth Cocaine Metabols U Cannabinoids Screen Hep Bs Antigen Blood Type Antibody Screen 04/03/18 04/03/18 06:23 06:28 WBC 19.6 H RBC 3.58 L Hgb 11.3 L Hct 33.2 L MCV 92.7 MCH 31.5 H MCHC 34.0 RDW 14.7 H Plt Count 276 MPV 8.6 Neut % (Auto) Lymph % (Auto) [place] % (Auto) Eos % (Auto) Baso % (Auto) Neut # (Auto) Lymph # (Auto) [place] # (Auto) Eos # (Auto) Baso # (Auto) Neutrophils % (Manual) Band Neutrophils % Lymphocytes % (Manual) Monocytes % (Manual) Metamyelocytes % Myelocytes % Toxic Granulation Platelet Estimate Large Platelets Giant Platelets Polychromasia Hypochromasia (manual) Poikilocytosis (manual Anisocytosis (manual) Microcytosis (manual) Macrocytosis (manual) [place] Cells PT INR APTT Puncture Site pCO2 pO2 HCO3 ABG pH ABG Total CO2 ABG O2 Saturation ABG Base Excess [place] Test ABG Potassium VBG pH VBG pCO2 VBG HCO3 VBG Total CO2 VBG O2 Sat (Calc) VBG Base Excess VBG Potassium A-a O2 Difference Respiratory Index Sodium Chloride Glucose Lactate Liter Flow FiO2 Inspiratory BiPAP Expiratory BiPAP Crit Value Called To Crit Value Called By Crit Value Read Back Blood Gas Notified Time Potassium Carbon Dioxide Anion Gap BUN Creatinine Est GFR ( Amer) Est GFR (Non-Af Amer) POC Glucose (mg/dL) Random Glucose Lactic Acid Calcium Phosphorus Magnesium Total Bilirubin AST ALT Alkaline Phosphatase Total Creatine Kinase CK-MB (Mass) Troponin I NT-Pro-B Natriuret Pep Total Protein Albumin Globulin Albumin/Globulin Ratio Triglycerides Cholesterol LDL Cholesterol Direct HDL Cholesterol Procalcitonin TSH 3rd Generation Arterial Blood Potassium Venous Blood Potassium Urine Color Urine Clarity Urine pH Ur Specific [place] Urine Protein Urine Glucose (UA) Urine Ketones Urine Blood Urine Nitrate Urine Bilirubin Urine Urobilinogen Ur Leukocyte Esterase Urine WBC (Auto) Urine RBC (Auto) Ur Squamous Epith Cells Urine Bacteria Random Vancomycin 6.6 Digoxin Urine Opiates Screen Urine Methadone Screen Ur Barbiturates Screen Ur Phencyclidine Scrn Ur Amphetamines Screen U Benzodiazepines Scrn U Oth Cocaine Metabols U Cannabinoids Screen Hep Bs Antigen Blood Type Antibody Screen EKG/Cardiology Studies: Cardiology / EKG Studies 04/02/18 15:07 ELECTROCARDIOGRAM Stat Comment: Mode Of Transportation: BED Reason For Exam: chest pain Fingerstick Blood Sugar Results: 275 Critical Care Progress Note - Nutrition Nutrition: Nutrition Category Date Time Status NPO Diet [DIET] Diets 04/03/18 Breakfast Active Assessment/Plan - Assessment and Plan (Free Text) Assessment: This is a 72 year old male with PMHx of arthritis, history of colon polyps, kidney stones, renal insufficiency, glaucoma s/p partial colectomy brought by EMS as aptient fell out of his chair. Admitted for severe sepsis, septic shock 2 /2 bilateral lower extremity cellulitis, metabolic encephalopathy 2/2 ARF ( severe metabolic acidosis and uremia), and atrial fibrillation with RVR. Plan: Neuro: GCS: 12 (E3, V4, M5) A: AMS - Head CT - negative A: Metabolic Encephalopathy - Likely 2/2 uremia and severe metabolic acidosis from ARF Cardio: A: New Onset Atrial Fibrillation with RVR - Was given digoxin, verapamil - Currently on Verapamil, Amiodarone - titrating - F/U TSH, Free T4 - ECHO ordered A: Hypotension - Currently on Vaso and levophed GI: A: Diarrhea - Started on vanco, flagyl - Cdiff negative, stool studies pending A: Cholelithiasis - CT chest/ab/pel: No evidence of pneumonia or empyema. Possible cholelithiasis. Correlate with ultrasound examination. Status post subtotal colectomy. Mural thickening of small bowel loops in the right lower quadrant. Nonspecific finding. Small hiatal hernia. Bilateral gynecomastia. Stable left adrenal adenoma. Small left renal cortical cyst. - Abdominal US ordered - T. bili 1.6 A: Hx of Colon CA s/p subtotal colectomy? Endo: A: T2DM - Accuchecks, ISS - A1C 7.2 Renal: A: Acute Renal Failure with severe metabolic acidosis, hyperkalemia -- Dr. Luna consulted - Right Shiley placed 04/02 - Received dialysis 04/02 - Now HD TTS - Started on Bicarb drip @ 150cc/hr ID: A: Septic Shock -- ID consulted, Dr. Valdez -- Wound Care - 2/2 bilateral lower extremity cellulitis and ?? CDiff - Started on Meropenem, Flagyl, and Vanco 04/02/18, f/u vanco random/trough - Concern for Toxic shock syndrome - Louis cultured, stool studies A: Bilateral Lower Extremity Cellulitis - Venous dopplers ordered - Xray to rule out osteo Prophylaxis: - Pepcid, solucortef started for ppx 11/11 2 pressors - SCDs c/i, Heparin Q8H - Florastor started - PT/ OT- once patient is more stable DW Dr. Badillo, Terri Mc DO, PGY-1 <Kush Badillo A - Last Filed: 04/03/18 14:01> CCU Objective - Vital Signs / Intake & Output Vital Signs (Last 4 hours): Vital Signs Pulse Resp BP Pulse Ox 04/03/18 11:19 113 H 22 121/28 L 99 04/03/18 11:03 111 H 22 111/37 L 99 04/03/18 11:00 107 H 20 99 04/03/18 10:49 115 H 22 116/43 L 99 04/03/18 10:34 110 H 22 140/40 L 99 04/03/18 10:30 113 H 04/03/18 10:19 115 H 22 128/35 L 100 04/03/18 10:04 105 H 20 136/37 L 100 04/03/18 10:00 114 H 23 100 Intake and Output (Last 8hrs): Intake & Output 04/02/18 04/03/18 04/03/18 22:59 06:59 14:59 Intake Total 1079.1 3462.3 1677.9 Output Total 180 675 350 Balance 899.1 2787.3 1327.9 Weight 224 lb 10.417 oz 230 lb 9.656 oz Intake: IV 8 8 Intake, IV Amount 1079.1 3454.3 1669.9 LEFT FA Y 300 200 Left Forearm 266.6 199.6 66.4 RIGHT FEM. Y 19.2 9.6 Right Fem. PB 10 0 Right Femoral 312.5 156.4 56.3 Right Femoral SP 144.1 1037.6 Right Forearm 500 2625 300 Oral 0 Output: Urine 180 475 350 Urethral (Wall) 180 475 350 Stool 200 Emesis 0 Other: Voiding Method Indwelling Catheter # Bowel Movements 0 1 - Medications Active Medications: Active Medications Generic Name Dose Route Start Last Admin Trade Name Freq PRN Reason Stop Dose Admin Aspirin 81 mg 04/03/18 10:00 04/03/18 11:18 Ecotrin PO Not Given DAILY KARAN Dextrose 0 ml 04/03/18 12:00 Dextrose 50% Inj IV STAT PRN Hypoglycemia Protocol Protocol Dextrose 0 gm 04/03/18 12:00 Glutose 15 PO ONCE PRN Hypoglycemia Protocol Protocol Famotidine 20 mg 04/03/18 10:00 04/03/18 11:17 Pepcid IVP 20 mg DAILY KARAN Administration Glucagon 0 mg 04/03/18 12:00 Glucagen Diagnostic Kit IM STAT PRN Hypoglycemia Protocol Protocol Heparin Sodium (Porcine) 5,000 units 04/03/18 14:00 Heparin SC Q8 KARAN Hydrocortisone Sodium Succinate 100 mg 04/02/18 22:00 04/03/18 05:52 Solu-Cortef IV 100 mg Q8H KARAN Administration Meropenem 500 mg/ Sodium 100 mls @ 100 mls/hr 04/03/18 06:00 04/03/18 05:11 Chloride IVPB 100 mls/hr Q8 KARAN Administration Protocol Metronidazole 500 mg in 100 mls @ 100 mls/hr 04/02/18 22:00 04/03/18 05:12 Flagyl IVPB 100 mls/hr Q8 KARAN Administration Protocol Norepinephrine Bitartrate 8 mg 258 mls @ 7.74 mls/hr 04/02/18 19:28 04/03/18 11:00 / Dextrose IV 6 mcg/min .Q24H PRN 11.61 mls/hr TITRATE PER MD ORDER Titration Protocol 4 MCG/MIN Amiodarone HCl 900 mg/ 500 mls @ 16.66 mls/hr 04/03/18 03:30 04/03/18 03:30 Dextrose IV 04/03/18 21:30 16.66 mls/hr .Q24H KARAN Administration Protocol 0.5 MG/MIN Vasopressin 40 units/ Dextrose 40 mls @ 2.4 mls/hr 04/02/18 22:30 04/03/18 08 :33 IV 2.4 mls/hr .[id number] KARAN Administration 0.04 UNITS/MIN Sodium Bicarbonate 150 meq/ 1,000 mls @ 75 mls/hr 04/02/18 22:45 04/02/18 23: 30 Dextrose IV 75 mls/hr .[id number] KARAN Administration Phenylephrine HCl 30 mg/ 253 mls @ 10.12 mls/hr 04/02/18 22:53 04/02/18 23:28 Dextrose IV 20 mcg/min .Q24H PRN 10.12 mls/hr TITRATE PER MD ORDER Administration Protocol 20 MCG/MIN Verapamil HCl 40 mg/ Sodium 100 mls @ 18.75 mls/hr 04/03/18 05:09 04/03/18 05 :24 Chloride IV 18.75 mls/hr .[id number] PRN Administration FOR HR Protocol 7.5 MG/HR Vancomycin/Sodium Chloride 1 gm in 200 mls @ 133.333 mls/hr 04/05/18 08:30 Vancomycin 1 Gm/Ns 200 Ml IVPB Q48H KARAN Protocol Dextrose 1,000 mls @ 0 mls/hr 04/03/18 12:00 Dextrose 5% In Water 1000 Ml IV .Q0M PRN Hypoglycemia Protocol Protocol Per Protocol Insulin Human Regular 0 unit 04/03/18 16:30 Novolin R SC ACHS ON LICENSE OF [facility] Protocol Saccharomyces Boulardii 250 mg 04/03/18 10:00 04/03/18 10:00 Florastor PO Not Given Q12 ON LICENSE OF [facility] Sodium Hypochlorite 0 ml 04/03/18 18:00 Dakins Solution 0.5% TOP 04/03/18 18:01 ONCE ONE Vancomycin HCl 500 mg 04/02/18 18:00 04/02/18 22:45 Vancocin (Oral Or Rectal Use) PO Not Given QID ON LICENSE OF [facility] Protocol - Patient Studies Lab Studies: Microbiology Studies 04/02/18 15:50 Gram Stain - Final Blood 04/02/18 15:00 Gram Stain - Final Blood 04/02/18 18:51 Gram Stain - Final Leg - Right Wound Culture - Preliminary Gram Negative Rafa Lab Studies 04/03/18 04/03/18 04/03/18 Range/Units 12:37 10:24 06:28 WBC 19.6 H (4.8-10.8) K/uL RBC 3.58 L (4.40-5.90) Mil/uL Hgb 11.3 L (12.0-18.0) g/dL Hct 33.2 L (35.0-51.0) % MCV 92.7 (80.0-94.0) fL MCH 31.5 H (27.0-31.0) pg MCHC 34.0 (33.0-37.0) g/dL RDW 14.7 H (11.5-14.5) % Plt Count 276 (130-400) K/uL MPV 8.6 (7.2-11.7) fL Neut % (Auto) 97.0 H (50.0-75.0) % Lymph % (Auto) 2.0 L (20.0-40.0) % [place] % (Auto) 1.0 (0.0-10.0) % Eos % (Auto) 0.0 (0.0-4.0) % Baso % (Auto) 0.0 (0.0-2.0) % Neut # (Auto) 19.4 H (1.8-7.0) K/uL Lymph # (Auto) 0.3 L (1.0-4.3) K/uL [place] # (Auto) 0.2 (0.0-0.8) K/uL Eos # (Auto) 0.0 (0.0-0.7) K/uL Baso # (Auto) 0.0 (0.0-0.2) K/uL Neutrophils % (Manual) 86 H (50-75) % Band Neutrophils % 7 H (0-2) % Lymphocytes % (Manual) 2 L (20-40) % Monocytes % (Manual) 3 (0-10) % Metamyelocytes % (0-0) % Myelocytes % 2 H (0-0) % Toxic Granulation Platelet Estimate Normal (NORMAL) Large Platelets Giant Platelets RBC Morphology Normal Polychromasia Hypochromasia (manual) Poikilocytosis (manual Anisocytosis (manual) Microcytosis (manual) Macrocytosis (manual) [place]aan Cells Smear Path Review PT (9.7-12.2) SECONDS INR APTT (21-34) SECONDS Puncture Site Lr pCO2 24 L (35-45) mm/Hg pO2 101 H (30-55) mm/Hg HCO3 20.3 L (21-28) mmol/L ABG pH 7.44 (7.35-7.45) ABG Total CO2 17.0 L (22-28) mmol/L ABG O2 Saturation 97.5 (95-98) % ABG Base Excess -6.0 L (-2.0-3.0) mmol/L [place] Test Pos ABG Potassium 3.4 L (3.6-5.2) mmol/L VBG pH (7.32-7.43) VBG pCO2 (40-60) mmHg VBG HCO3 mmol/L VBG Total CO2 (22-28) mmol/L VBG O2 Sat (Calc) (40-65) % VBG Base Excess (0.0-2.0) mmol/L VBG Potassium (3.6-5.2) mmol/L A-a O2 Difference 83.0 mm/Hg Respiratory Index 0.8 Sodium 137.0 (132-148) mmol/l Chloride 107.0 (98-107) mmol/L Glucose 282 H (75-110) mg/dl Lactate 2.8 H (0.7-2.1) mmol/L Liter Flow FiO2 30.0 % Inspiratory BiPAP 15 Expiratory BiPAP 5 Crit Value Called To Crit Value Called By Crit Value Read Back Blood Gas Notified Time Potassium (3.6-5.2) mmol/L Carbon Dioxide (22-30) mmol/L Anion Gap (10-20) BUN (9-20) mg/dL Creatinine (0.8-1.5) mg/dL Est GFR ( Amer) Est GFR (Non-Af Amer) POC Glucose (mg/dL) 286 H (65-110) mg/dL Random Glucose (75-110) mg/dL Hemoglobin A1c (4.2-6.5) % Lactic Acid (0.7-2.1) mmol/L Calcium (8.6-10.4) mg/dl Phosphorus (2.5-4.5) mg/dL Magnesium (1.6-2.3) mg/dL Total Bilirubin (0.2-1.3) mg/dL AST (17-59) U/L ALT (21-72) U/L Alkaline Phosphatase (38-126) U/L Total Creatine Kinase (55-170) U/L CK-MB (Mass) (0.0-3.38) ng/mL Troponin I (0.00-0.120) ng/mL NT-Pro-B Natriuret Pep (0-900) pg/mL Total Protein (6.3-8.3) g/dL Albumin (3.5-5.0) g/dL Globulin (2.2-3.9) gm/dL Albumin/Globulin Ratio (1.0-2.1) Triglycerides (0-149) mg/dL Cholesterol (0-199) mg/dL LDL Cholesterol Direct (0-129) mg/dL HDL Cholesterol (30-70) mg/dL Procalcitonin (0.19-0.49) NG/ML TSH 3rd Generation (0.46-4.68) mIU/L Arterial Blood Potassium 3.4 L (3.6-5.2) mmol/L Venous Blood Potassium (3.6-5.2) mmol/L Urine Color (YELLOW) Urine Clarity (Clear) Urine pH (5.0-8.0) Ur Specific [place] (1.003-1.030) Urine Protein (NEGATIVE) mg/dL Urine Glucose (UA) (Normal) mg/dL Urine Ketones (NEGATIVE) mg/dL Urine Blood (NEGATIVE) Urine Nitrate (NEGATIVE) Urine Bilirubin (NEGATIVE) Urine Urobilinogen (0.2-1.0) mg/dL Ur Leukocyte Esterase (Negative) [place]/uL Urine WBC (Auto) (0-5) /hpf Urine RBC (Auto) (0-3) /hpf Ur Squamous Epith Cells (0-5) /hpf Urine Bacteria (<OCC) Random Vancomycin ug/mL Digoxin (0.8-2.0) ng/mL Urine Opiates Screen (NEGATIVE) Urine Methadone Screen (NEGATIVE) Ur Barbiturates Screen (NEGATIVE) Ur Phencyclidine Scrn (NEGATIVE) Ur Amphetamines Screen (NEGATIVE) U Benzodiazepines Scrn (NEGATIVE) U Oth Cocaine Metabols (NEGATIVE) U Cannabinoids Screen (NEGATIVE) C. difficile Ag & Toxin (NEGATIVE) Hep Bs Antigen (NEGATIVE) Hep Bs Antibody (NEGATIVE) Hep B Core IgM Ab (NEGATIVE) Hepatitis C Antibody (NEGATIVE) Blood Type Antibody Screen 04/03/18 04/03/18 04/03/18 Range/Units 06:28 06:23 06:23 WBC (4.8-10.8) K/uL RBC (4.40-5.90) Mil/uL Hgb (12.0-18.0) g/dL Hct (35.0-51.0) % MCV (80.0-94.0) fL MCH (27.0-31.0) pg MCHC (33.0-37.0) g/dL RDW (11.5-14.5) % Plt Count (130-400) K/uL MPV (7.2-11.7) fL Neut % (Auto) (50.0-75.0) % Lymph % (Auto) (20.0-40.0) % [place] % (Auto) (0.0-10.0) % Eos % (Auto) (0.0-4.0) % Baso % (Auto) (0.0-2.0) % Neut # (Auto) (1.8-7.0) K/uL Lymph # (Auto) (1.0-4.3) K/uL [place] # (Auto) (0.0-0.8) K/uL Eos # (Auto) (0.0-0.7) K/uL Baso # (Auto) (0.0-0.2) K/uL Neutrophils % (Manual) (50-75) % Band Neutrophils % (0-2) % Lymphocytes % (Manual) (20-40) % Monocytes % (Manual) (0-10) % Metamyelocytes % (0-0) % Myelocytes % (0-0) % Toxic Granulation Platelet Estimate (NORMAL) Large Platelets Giant Platelets RBC Morphology Polychromasia Hypochromasia (manual) Poikilocytosis (manual Anisocytosis (manual) Microcytosis (manual) Macrocytosis (manual) [place] Cells Smear Path Review PT (9.7-12.2) SECONDS INR APTT (21-34) SECONDS Puncture Site pCO2 (35-45) mm/Hg pO2 (30-55) mm/Hg HCO3 (21-28) mmol/L ABG pH (7.35-7.45) ABG Total CO2 (22-28) mmol/L ABG O2 Saturation (95-98) % ABG Base Excess (-2.0-3.0) mmol/L [place] Test ABG Potassium (3.6-5.2) mmol/L VBG pH (7.32-7.43) VBG pCO2 (40-60) mmHg VBG HCO3 mmol/L VBG Total CO2 (22-28) mmol/L VBG O2 Sat (Calc) (40-65) % VBG Base Excess (0.0-2.0) mmol/L VBG Potassium (3.6-5.2) mmol/L A-a O2 Difference mm/Hg Respiratory Index Sodium 139 (132-148) mmol/l Chloride 107 (98-107) mmol/L Glucose (75-110) mg/dl Lactate (0.7-2.1) mmol/L Liter Flow FiO2 % Inspiratory BiPAP Expiratory BiPAP Crit Value Called To Crit Value Called By Crit Value Read Back Blood Gas Notified Time Potassium 4.3 (3.6-5.2) mmol/L Carbon Dioxide 15 L (22-30) mmol/L Anion Gap 21 H (10-20) BUN 87 H (9-20) mg/dL Creatinine 3.2 H (0.8-1.5) mg/dL Est GFR ( Amer) 23 Est GFR (Non-Af Amer) 19 POC Glucose (mg/dL) (65-110) mg/dL Random Glucose 237 H (75-110) mg/dL Hemoglobin A1c 7.2 H (4.2-6.5) % Lactic Acid (0.7-2.1) mmol/L Calcium 7.4 L (8.6-10.4) mg/dl Phosphorus (2.5-4.5) mg/dL Magnesium (1.6-2.3) mg/dL Total Bilirubin 1.6 H (0.2-1.3) mg/dL AST 39 (17-59) U/L ALT 30 (21-72) U/L Alkaline Phosphatase 64 (38-126) U/L Total Creatine Kinase (55-170) U/L CK-MB (Mass) (0.0-3.38) ng/mL Troponin I (0.00-0.120) ng/mL NT-Pro-B Natriuret Pep (0-900) pg/mL Total Protein 4.8 L (6.3-8.3) g/dL Albumin 2.4 L (3.5-5.0) g/dL Globulin 2.5 (2.2-3.9) gm/dL Albumin/Globulin Ratio 1.0 (1.0-2.1) Triglycerides 163 H (0-149) mg/dL Cholesterol 83 (0-199) mg/dL LDL Cholesterol Direct 33 (0-129) mg/dL HDL Cholesterol 14 L (30-70) mg/dL Procalcitonin (0.19-0.49) NG/ML TSH 3rd Generation (0.46-4.68) mIU/L Arterial Blood Potassium (3.6-5.2) mmol/L Venous Blood Potassium (3.6-5.2) mmol/L Urine Color (YELLOW) Urine Clarity (Clear) Urine pH (5.0-8.0) Ur Specific [place] (1.003-1.030) Urine Protein (NEGATIVE) mg/dL Urine Glucose (UA) (Normal) mg/dL Urine Ketones (NEGATIVE) mg/dL Urine Blood (NEGATIVE) Urine Nitrate (NEGATIVE) Urine Bilirubin (NEGATIVE) Urine Urobilinogen (0.2-1.0) mg/dL Ur Leukocyte Esterase (Negative) [place]/uL Urine WBC (Auto) (0-5) /hpf Urine RBC (Auto) (0-3) /hpf Ur Squamous Epith Cells (0-5) /hpf Urine Bacteria (<OCC) Random Vancomycin 6.6 ug/mL Digoxin (0.8-2.0) ng/mL Urine Opiates Screen (NEGATIVE) Urine Methadone Screen (NEGATIVE) Ur Barbiturates Screen (NEGATIVE) Ur Phencyclidine Scrn (NEGATIVE) Ur Amphetamines Screen (NEGATIVE) U Benzodiazepines Scrn (NEGATIVE) U Oth Cocaine Metabols (NEGATIVE) U Cannabinoids Screen (NEGATIVE) C. difficile Ag & Toxin (NEGATIVE) Hep Bs Antigen (NEGATIVE) Hep Bs Antibody (NEGATIVE) Hep B Core IgM Ab (NEGATIVE) Hepatitis C Antibody (NEGATIVE) Blood Type Antibody Screen 04/03/18 04/03/18 04/03/18 Range/Units 06:23 05:44 02:34 WBC (4.8-10.8) K/uL RBC (4.40-5.90) Mil/uL Hgb (12.0-18.0) g/dL Hct (35.0-51.0) % MCV (80.0-94.0) fL MCH (27.0-31.0) pg MCHC (33.0-37.0) g/dL RDW (11.5-14.5) % Plt Count (130-400) K/uL MPV (7.2-11.7) fL Neut % (Auto) (50.0-75.0) % Lymph % (Auto) (20.0-40.0) % [place] % (Auto) (0.0-10.0) % Eos % (Auto) (0.0-4.0) % Baso % (Auto) (0.0-2.0) % Neut # (Auto) (1.8-7.0) K/uL Lymph # (Auto) (1.0-4.3) K/uL [place] # (Auto) (0.0-0.8) K/uL Eos # (Auto) (0.0-0.7) K/uL Baso # (Auto) (0.0-0.2) K/uL Neutrophils % (Manual) (50-75) % Band Neutrophils % (0-2) % Lymphocytes % (Manual) (20-40) % Monocytes % (Manual) (0-10) % Metamyelocytes % (0-0) % Myelocytes % (0-0) % Toxic Granulation Platelet Estimate (NORMAL) Large Platelets Giant Platelets RBC Morphology Polychromasia Hypochromasia (manual) Poikilocytosis (manual Anisocytosis (manual) Microcytosis (manual) Macrocytosis (manual) [place] Cells Smear Path Review PT (9.7-12.2) SECONDS INR APTT (21-34) SECONDS Puncture Site pCO2 (35-45) mm/Hg pO2 (30-55) mm/Hg HCO3 (21-28) mmol/L ABG pH (7.35-7.45) ABG Total CO2 (22-28) mmol/L ABG O2 Saturation (95-98) % ABG Base Excess (-2.0-3.0) mmol/L [place] Test ABG Potassium (3.6-5.2) mmol/L VBG pH (7.32-7.43) VBG pCO2 (40-60) mmHg VBG HCO3 mmol/L VBG Total CO2 (22-28) mmol/L VBG O2 Sat (Calc) (40-65) % VBG Base Excess (0.0-2.0) mmol/L VBG Potassium (3.6-5.2) mmol/L A-a O2 Difference mm/Hg Respiratory Index Sodium (132-148) mmol/l Chloride (98-107) mmol/L Glucose (75-110) mg/dl Lactate (0.7-2.1) mmol/L Liter Flow FiO2 % Inspiratory BiPAP Expiratory BiPAP Crit Value Called To Crit Value Called By Crit Value Read Back Blood Gas Notified Time Potassium (3.6-5.2) mmol/L Carbon Dioxide (22-30) mmol/L Anion Gap (10-20) BUN (9-20) mg/dL Creatinine (0.8-1.5) mg/dL Est GFR ( Amer) Est GFR (Non-Af Amer) POC Glucose (mg/dL) 275 H (65-110) mg/dL Random Glucose (75-110) mg/dL Hemoglobin A1c (4.2-6.5) % Lactic Acid 4.6 H* 5.6 H* (0.7-2.1) mmol/L Calcium (8.6-10.4) mg/dl Phosphorus (2.5-4.5) mg/dL Magnesium (1.6-2.3) mg/dL Total Bilirubin (0.2-1.3) mg/dL AST (17-59) U/L ALT (21-72) U/L Alkaline Phosphatase (38-126) U/L Total Creatine Kinase (55-170) U/L CK-MB (Mass) (0.0-3.38) ng/mL Troponin I (0.00-0.120) ng/mL NT-Pro-B Natriuret Pep (0-900) pg/mL Total Protein (6.3-8.3) g/dL Albumin (3.5-5.0) g/dL Globulin (2.2-3.9) gm/dL Albumin/Globulin Ratio (1.0-2.1) Triglycerides (0-149) mg/dL Cholesterol (0-199) mg/dL LDL Cholesterol Direct (0-129) mg/dL HDL Cholesterol (30-70) mg/dL Procalcitonin (0.19-0.49) NG/ML TSH 3rd Generation (0.46-4.68) mIU/L Arterial Blood Potassium (3.6-5.2) mmol/L Venous Blood Potassium (3.6-5.2) mmol/L Urine Color (YELLOW) Urine Clarity (Clear) Urine pH (5.0-8.0) Ur Specific [place] (1.003-1.030) Urine Protein (NEGATIVE) mg/dL Urine Glucose (UA) (Normal) mg/dL Urine Ketones (NEGATIVE) mg/dL Urine Blood (NEGATIVE) Urine Nitrate (NEGATIVE) Urine Bilirubin (NEGATIVE) Urine Urobilinogen (0.2-1.0) mg/dL Ur Leukocyte Esterase (Negative) [place]/uL Urine WBC (Auto) (0-5) /hpf Urine RBC (Auto) (0-3) /hpf Ur Squamous Epith Cells (0-5) /hpf Urine Bacteria (<OCC) Random Vancomycin ug/mL Digoxin (0.8-2.0) ng/mL Urine Opiates Screen (NEGATIVE) Urine Methadone Screen (NEGATIVE) Ur Barbiturates Screen (NEGATIVE) Ur Phencyclidine Scrn (NEGATIVE) Ur Amphetamines Screen (NEGATIVE) U Benzodiazepines Scrn (NEGATIVE) U Oth Cocaine Metabols (NEGATIVE) U Cannabinoids Screen (NEGATIVE) C. difficile Ag & Toxin (NEGATIVE) Hep Bs Antigen (NEGATIVE) Hep Bs Antibody (NEGATIVE) Hep B Core IgM Ab (NEGATIVE) Hepatitis C Antibody (NEGATIVE) Blood Type Antibody Screen 04/03/18 04/03/18 04/03/18 Range/Units 00:57 00:55 00:55 WBC (4.8-10.8) K/uL RBC (4.40-5.90) Mil/uL Hgb (12.0-18.0) g/dL Hct (35.0-51.0) % MCV (80.0-94.0) fL MCH (27.0-31.0) pg MCHC (33.0-37.0) g/dL RDW (11.5-14.5) % Plt Count (130-400) K/uL MPV (7.2-11.7) fL Neut % (Auto) (50.0-75.0) % Lymph % (Auto) (20.0-40.0) % [place] % (Auto) (0.0-10.0) % Eos % (Auto) (0.0-4.0) % Baso % (Auto) (0.0-2.0) % Neut # (Auto) (1.8-7.0) K/uL Lymph # (Auto) (1.0-4.3) K/uL [place] # (Auto) (0.0-0.8) K/uL Eos # (Auto) (0.0-0.7) K/uL Baso # (Auto) (0.0-0.2) K/uL Neutrophils % (Manual) (50-75) % Band Neutrophils % (0-2) % Lymphocytes % (Manual) (20-40) % Monocytes % (Manual) (0-10) % Metamyelocytes % (0-0) % Myelocytes % (0-0) % Toxic Granulation Platelet Estimate (NORMAL) Large Platelets Giant Platelets RBC Morphology Polychromasia Hypochromasia (manual) Poikilocytosis (manual Anisocytosis (manual) Microcytosis (manual) Macrocytosis (manual) [place] Cells Smear Path Review PT (9.7-12.2) SECONDS INR APTT (21-34) SECONDS Puncture Site pCO2 (35-45) mm/Hg pO2 (30-55) mm/Hg HCO3 (21-28) mmol/L ABG pH (7.35-7.45) ABG Total CO2 (22-28) mmol/L ABG O2 Saturation (95-98) % ABG Base Excess (-2.0-3.0) mmol/L [place] Test ABG Potassium (3.6-5.2) mmol/L VBG pH (7.32-7.43) VBG pCO2 (40-60) mmHg VBG HCO3 mmol/L VBG Total CO2 (22-28) mmol/L VBG O2 Sat (Calc) (40-65) % VBG Base Excess (0.0-2.0) mmol/L VBG Potassium (3.6-5.2) mmol/L A-a O2 Difference mm/Hg Respiratory Index Sodium 140 (132-148) mmol/l Chloride 109 H (98-107) mmol/L Glucose (75-110) mg/dl Lactate (0.7-2.1) mmol/L Liter Flow FiO2 % Inspiratory BiPAP Expiratory BiPAP Crit Value Called To Crit Value Called By Crit Value Read Back Blood Gas Notified Time Potassium 3.7 (3.6-5.2) mmol/L Carbon Dioxide 10 L* (22-30) mmol/L Anion Gap 24 H (10-20) BUN 81 H (9-20) mg/dL Creatinine 3.1 H (0.8-1.5) mg/dL Est GFR ( Amer) 24 Est GFR (Non-Af Amer) 20 POC Glucose (mg/dL) (65-110) mg/dL Random Glucose 206 H (75-110) mg/dL Hemoglobin A1c (4.2-6.5) % Lactic Acid (0.7-2.1) mmol/L Calcium 7.4 L (8.6-10.4) mg/dl Phosphorus 5.0 H (2.5-4.5) mg/dL Magnesium 2.2 (1.6-2.3) mg/dL Total Bilirubin 1.4 H (0.2-1.3) mg/dL AST 33 (17-59) U/L ALT 24 (21-72) U/L Alkaline Phosphatase 86 (38-126) U/L Total Creatine Kinase (55-170) U/L CK-MB (Mass) (0.0-3.38) ng/mL Troponin I 0.0520 (0.00-0.120) ng/mL NT-Pro-B Natriuret Pep (0-900) pg/mL Total Protein 4.7 L (6.3-8.3) g/dL Albumin 2.2 L D (3.5-5.0) g/dL Globulin 2.4 (2.2-3.9) gm/dL Albumin/Globulin Ratio 0.9 L (1.0-2.1) Triglycerides (0-149) mg/dL Cholesterol (0-199) mg/dL LDL Cholesterol Direct (0-129) mg/dL HDL Cholesterol (30-70) mg/dL Procalcitonin (0.19-0.49) NG/ML TSH 3rd Generation (0.46-4.68) mIU/L Arterial Blood Potassium (3.6-5.2) mmol/L Venous Blood Potassium (3.6-5.2) mmol/L Urine Color (YELLOW) Urine Clarity (Clear) Urine pH (5.0-8.0) Ur Specific [place] (1.003-1.030) Urine Protein (NEGATIVE) mg/dL Urine Glucose (UA) (Normal) mg/dL Urine Ketones (NEGATIVE) mg/dL Urine Blood (NEGATIVE) Urine Nitrate (NEGATIVE) Urine Bilirubin (NEGATIVE) Urine Urobilinogen (0.2-1.0) mg/dL Ur Leukocyte Esterase (Negative) [place]/uL Urine WBC (Auto) (0-5) /hpf Urine RBC (Auto) (0-3) /hpf Ur Squamous Epith Cells (0-5) /hpf Urine Bacteria (<OCC) Random Vancomycin ug/mL Digoxin (0.8-2.0) ng/mL Urine Opiates Screen Negative (NEGATIVE) Urine Methadone Screen Negative (NEGATIVE) Ur Barbiturates Screen Negative (NEGATIVE) Ur Phencyclidine Scrn Negative (NEGATIVE) Ur Amphetamines Screen Negative (NEGATIVE) U Benzodiazepines Scrn Negative (NEGATIVE) U Oth Cocaine Metabols Negative (NEGATIVE) U Cannabinoids Screen Negative (NEGATIVE) C. difficile Ag & Toxin (NEGATIVE) Hep Bs Antigen (NEGATIVE) Hep Bs Antibody (NEGATIVE) Hep B Core IgM Ab (NEGATIVE) Hepatitis C Antibody (NEGATIVE) Blood Type Antibody Screen 04/03/18 04/02/18 04/02/18 Range/Units 00:01 23:04 22:42 WBC (4.8-10.8) K/uL RBC (4.40-5.90) Mil/uL Hgb (12.0-18.0) g/dL Hct (35.0-51.0) % MCV (80.0-94.0) fL MCH (27.0-31.0) pg MCHC (33.0-37.0) g/dL RDW (11.5-14.5) % Plt Count (130-400) K/uL MPV (7.2-11.7) fL Neut % (Auto) (50.0-75.0) % Lymph % (Auto) (20.0-40.0) % [place] % (Auto) (0.0-10.0) % Eos % (Auto) (0.0-4.0) % Baso % (Auto) (0.0-2.0) % Neut # (Auto) (1.8-7.0) K/uL Lymph # (Auto) (1.0-4.3) K/uL [place] # (Auto) (0.0-0.8) K/uL Eos # (Auto) (0.0-0.7) K/uL Baso # (Auto) (0.0-0.2) K/uL Neutrophils % (Manual) (50-75) % Band Neutrophils % (0-2) % Lymphocytes % (Manual) (20-40) % Monocytes % (Manual) (0-10) % Metamyelocytes % (0-0) % Myelocytes % (0-0) % Toxic Granulation Platelet Estimate (NORMAL) Large Platelets Giant Platelets RBC Morphology Polychromasia Hypochromasia (manual) Poikilocytosis (manual Anisocytosis (manual) Microcytosis (manual) Macrocytosis (manual) [place] Cells Smear Path Review PT (9.7-12.2) SECONDS INR APTT (21-34) SECONDS Puncture Site Lra pCO2 31 L (35-45) mm/Hg pO2 20 L* (30-55) mm/Hg HCO3 15.3 L (21-28) mmol/L ABG pH 7.30 L (7.35-7.45) ABG Total CO2 16.3 L (22-28) mmol/L ABG O2 Saturation 40.2 L (95-98) % ABG Base Excess -9.9 L (-2.0-3.0) mmol/L [place] Test Na ABG Potassium 3.3 L (3.6-5.2) mmol/L VBG pH (7.32-7.43) VBG pCO2 (40-60) mmHg VBG HCO3 mmol/L VBG Total CO2 (22-28) mmol/L VBG O2 Sat (Calc) (40-65) % VBG Base Excess (0.0-2.0) mmol/L VBG Potassium (3.6-5.2) mmol/L A-a O2 Difference 298.0 mm/Hg Respiratory Index 14.9 Sodium 140.0 (132-148) mmol/l Chloride 107.0 (98-107) mmol/L Glucose 158 H (75-110) mg/dl Lactate 5.8 H* (0.7-2.1) mmol/L Liter Flow FiO2 50.0 % Inspiratory BiPAP 20 Expiratory BiPAP 10 Crit Value Called To Francisco Javier lee Crit Value Called By Ghazala Crit Value Read Back Y Blood Gas Notified Time 2248 Potassium (3.6-5.2) mmol/L Carbon Dioxide (22-30) mmol/L Anion Gap (10-20) BUN (9-20) mg/dL Creatinine (0.8-1.5) mg/dL Est GFR ( Amer) Est GFR (Non-Af Amer) POC Glucose (mg/dL) 204 H (65-110) mg/dL Random Glucose (75-110) mg/dL Hemoglobin A1c (4.2-6.5) % Lactic Acid (0.7-2.1) mmol/L Calcium (8.6-10.4) mg/dl Phosphorus (2.5-4.5) mg/dL Magnesium (1.6-2.3) mg/dL Total Bilirubin (0.2-1.3) mg/dL AST (17-59) U/L ALT (21-72) U/L Alkaline Phosphatase (38-126) U/L Total Creatine Kinase (55-170) U/L CK-MB (Mass) (0.0-3.38) ng/mL Troponin I (0.00-0.120) ng/mL NT-Pro-B Natriuret Pep (0-900) pg/mL Total Protein (6.3-8.3) g/dL Albumin (3.5-5.0) g/dL Globulin (2.2-3.9) gm/dL Albumin/Globulin Ratio (1.0-2.1) Triglycerides (0-149) mg/dL Cholesterol (0-199) mg/dL LDL Cholesterol Direct (0-129) mg/dL HDL Cholesterol (30-70) mg/dL Procalcitonin (0.19-0.49) NG/ML TSH 3rd Generation (0.46-4.68) mIU/L Arterial Blood Potassium 3.3 L (3.6-5.2) mmol/L Venous Blood Potassium (3.6-5.2) mmol/L Urine Color (YELLOW) Urine Clarity (Clear) Urine pH (5.0-8.0) Ur Specific [place] (1.003-1.030) Urine Protein (NEGATIVE) mg/dL Urine Glucose (UA) (Normal) mg/dL Urine Ketones (NEGATIVE) mg/dL Urine Blood (NEGATIVE) Urine Nitrate (NEGATIVE) Urine Bilirubin (NEGATIVE) Urine Urobilinogen (0.2-1.0) mg/dL Ur Leukocyte Esterase (Negative) [place]/uL Urine WBC (Auto) (0-5) /hpf Urine RBC (Auto) (0-3) /hpf Ur Squamous Epith Cells (0-5) /hpf Urine Bacteria (<OCC) Random Vancomycin ug/mL Digoxin (0.8-2.0) ng/mL Urine Opiates Screen (NEGATIVE) Urine Methadone Screen (NEGATIVE) Ur Barbiturates Screen (NEGATIVE) Ur Phencyclidine Scrn (NEGATIVE) Ur Amphetamines Screen (NEGATIVE) U Benzodiazepines Scrn (NEGATIVE) U Oth Cocaine Metabols (NEGATIVE) U Cannabinoids Screen (NEGATIVE) C. difficile Ag & Toxin (NEGATIVE) Hep Bs Antigen (NEGATIVE) Hep Bs Antibody (NEGATIVE) Hep B Core IgM Ab (NEGATIVE) Hepatitis C Antibody (NEGATIVE) Blood Type A POSITIVE Antibody Screen Negative 04/02/18 04/02/18 04/02/18 Range/Units 22:30 21:16 21:16 WBC 22.6 H D (4.8-10.8) K/uL RBC 3.73 L (4.40-5.90) Mil/uL Hgb 11.5 L (12.0-18.0) g/dL Hct 34.3 L (35.0-51.0) % MCV 92.0 D (80.0-94.0) fL MCH 30.9 (27.0-31.0) pg MCHC 33.6 (33.0-37.0) g/dL RDW 14.6 H (11.5-14.5) % Plt Count 312 D (130-400) K/uL MPV 8.2 (7.2-11.7) fL Neut % (Auto) 97.6 H (50.0-75.0) % Lymph % (Auto) 0.8 L (20.0-40.0) % [place] % (Auto) 1.5 (0.0-10.0) % Eos % (Auto) 0.0 (0.0-4.0) % Baso % (Auto) 0.1 (0.0-2.0) % Neut # (Auto) 22.1 H (1.8-7.0) K/uL Lymph # (Auto) 0.2 L (1.0-4.3) K/uL [place] # (Auto) 0.3 (0.0-0.8) K/uL Eos # (Auto) 0.0 (0.0-0.7) K/uL Baso # (Auto) 0.0 (0.0-0.2) K/uL Neutrophils % (Manual) 86 H (50-75) % Band Neutrophils % 12 H* (0-2) % Lymphocytes % (Manual) TEST NOT PERFORMED (20-40) % Monocytes % (Manual) 2 (0-10) % Metamyelocytes % (0-0) % Myelocytes % (0-0) % Toxic Granulation Present Platelet Estimate Normal (NORMAL) Large Platelets Present Giant Platelets Present RBC Morphology Polychromasia Slight Hypochromasia (manual) Slight Poikilocytosis (manual Slight Anisocytosis (manual) Slight Microcytosis (manual) Slight Macrocytosis (manual) Slight [place] Cells Slight Smear Path Review PT (9.7-12.2) SECONDS INR APTT (21-34) SECONDS Puncture Site pCO2 (35-45) mm/Hg pO2 (30-55) mm/Hg HCO3 (21-28) mmol/L ABG pH (7.35-7.45) ABG Total CO2 (22-28) mmol/L ABG O2 Saturation (95-98) % ABG Base Excess (-2.0-3.0) mmol/L [place] Test ABG Potassium (3.6-5.2) mmol/L VBG pH (7.32-7.43) VBG pCO2 (40-60) mmHg VBG HCO3 mmol/L VBG Total CO2 (22-28) mmol/L VBG O2 Sat (Calc) (40-65) % VBG Base Excess (0.0-2.0) mmol/L VBG Potassium (3.6-5.2) mmol/L A-a O2 Difference mm/Hg Respiratory Index Sodium (132-148) mmol/l Chloride (98-107) mmol/L Glucose (75-110) mg/dl Lactate (0.7-2.1) mmol/L Liter Flow FiO2 % Inspiratory BiPAP Expiratory BiPAP Crit Value Called To Crit Value Called By Crit Value Read Back Blood Gas Notified Time Potassium (3.6-5.2) mmol/L Carbon Dioxide (22-30) mmol/L Anion Gap (10-20) BUN (9-20) mg/dL Creatinine (0.8-1.5) mg/dL Est GFR ( Amer) Est GFR (Non-Af Amer) POC Glucose (mg/dL) (65-110) mg/dL Random Glucose (75-110) mg/dL Hemoglobin A1c (4.2-6.5) % Lactic Acid 4.1 H* (0.7-2.1) mmol/L Calcium (8.6-10.4) mg/dl Phosphorus (2.5-4.5) mg/dL Magnesium (1.6-2.3) mg/dL Total Bilirubin (0.2-1.3) mg/dL AST (17-59) U/L ALT (21-72) U/L Alkaline Phosphatase (38-126) U/L Total Creatine Kinase (55-170) U/L CK-MB (Mass) (0.0-3.38) ng/mL Troponin I (0.00-0.120) ng/mL NT-Pro-B Natriuret Pep (0-900) pg/mL Total Protein (6.3-8.3) g/dL Albumin (3.5-5.0) g/dL Globulin (2.2-3.9) gm/dL Albumin/Globulin Ratio (1.0-2.1) Triglycerides (0-149) mg/dL Cholesterol (0-199) mg/dL LDL Cholesterol Direct (0-129) mg/dL HDL Cholesterol (30-70) mg/dL Procalcitonin (0.19-0.49) NG/ML TSH 3rd Generation (0.46-4.68) mIU/L Arterial Blood Potassium (3.6-5.2) mmol/L Venous Blood Potassium (3.6-5.2) mmol/L Urine Color (YELLOW) Urine Clarity (Clear) Urine pH (5.0-8.0) Ur Specific [place] (1.003-1.030) Urine Protein (NEGATIVE) mg/dL Urine Glucose (UA) (Normal) mg/dL Urine Ketones (NEGATIVE) mg/dL Urine Blood (NEGATIVE) Urine Nitrate (NEGATIVE) Urine Bilirubin (NEGATIVE) Urine Urobilinogen (0.2-1.0) mg/dL Ur Leukocyte Esterase (Negative) [place]/uL Urine WBC (Auto) (0-5) /hpf Urine RBC (Auto) (0-3) /hpf Ur Squamous Epith Cells (0-5) /hpf Urine Bacteria (<OCC) Random Vancomycin ug/mL Digoxin < 0.4 L (0.8-2.0) ng/mL Urine Opiates Screen (NEGATIVE) Urine Methadone Screen (NEGATIVE) Ur Barbiturates Screen (NEGATIVE) Ur Phencyclidine Scrn (NEGATIVE) Ur Amphetamines Screen (NEGATIVE) U Benzodiazepines Scrn (NEGATIVE) U Oth Cocaine Metabols (NEGATIVE) U Cannabinoids Screen (NEGATIVE) C. difficile Ag & Toxin (NEGATIVE) Hep Bs Antigen (NEGATIVE) Hep Bs Antibody (NEGATIVE) Hep B Core IgM Ab (NEGATIVE) Hepatitis C Antibody (NEGATIVE) Blood Type Antibody Screen 04/02/18 04/02/18 04/02/18 Range/Units 20:50 20:49 20:40 WBC (4.8-10.8) K/uL RBC (4.40-5.90) Mil/uL Hgb (12.0-18.0) g/dL Hct (35.0-51.0) % MCV (80.0-94.0) fL MCH (27.0-31.0) pg MCHC (33.0-37.0) g/dL RDW (11.5-14.5) % Plt Count (130-400) K/uL MPV (7.2-11.7) fL Neut % (Auto) (50.0-75.0) % Lymph % (Auto) (20.0-40.0) % [place] % (Auto) (0.0-10.0) % Eos % (Auto) (0.0-4.0) % Baso % (Auto) (0.0-2.0) % Neut # (Auto) (1.8-7.0) K/uL Lymph # (Auto) (1.0-4.3) K/uL [place] # (Auto) (0.0-0.8) K/uL Eos # (Auto) (0.0-0.7) K/uL Baso # (Auto) (0.0-0.2) K/uL Neutrophils % (Manual) (50-75) % Band Neutrophils % (0-2) % Lymphocytes % (Manual) (20-40) % Monocytes % (Manual) (0-10) % Metamyelocytes % (0-0) % Myelocytes % (0-0) % Toxic Granulation Platelet Estimate (NORMAL) Large Platelets Giant Platelets RBC Morphology Polychromasia Hypochromasia (manual) Poikilocytosis (manual Anisocytosis (manual) Microcytosis (manual) Macrocytosis (manual) [place] Cells Smear Path Review PT (9.7-12.2) SECONDS INR APTT (21-34) SECONDS Puncture Site Rra pCO2 16 L* (35-45) mm/Hg pO2 38 149 H (30-55) mm/Hg HCO3 12.3 L (21-28) mmol/L ABG pH 7.29 L (7.35-7.45) ABG Total CO2 8.2 L (22-28) mmol/L ABG O2 Saturation 98.0 (95-98) % ABG Base Excess -16.3 L (-2.0-3.0) mmol/L [place] Test Na ABG Potassium 2.3 L* (3.6-5.2) mmol/L VBG pH 7.24 L (7.32-7.43) VBG pCO2 27 L (40-60) mmHg VBG HCO3 12.9 mmol/L VBG Total CO2 12.4 L (22-28) mmol/L VBG O2 Sat (Calc) 76.8 H (40-65) % VBG Base Excess -14.2 L (0.0-2.0) mmol/L VBG Potassium 4.0 (3.6-5.2) mmol/L A-a O2 Difference 45.0 mm/Hg Respiratory Index 0.3 Sodium 141 137.0 146.0 (132-148) mmol/l Chloride 111 H 108.0 H 124.0 H (98-107) mmol/L Glucose 125 H 100 (75-110) mg/dl Lactate 4.4 H* 2.5 H (0.7-2.1) mmol/L Liter Flow 3.0 FiO2 30.0 % Inspiratory BiPAP Expiratory BiPAP Crit Value Called To Ranjeet Pollack md Crit Value Called By Lendl Lendl Crit Value Read Back Y Y Blood Gas Notified Time 2052 2042 Potassium 4.1 (3.6-5.2) mmol/L Carbon Dioxide 11 L* D (22-30) mmol/L Anion Gap 23 H (10-20) BUN 116 H* D (9-20) mg/dL Creatinine 4.7 H (0.8-1.5) mg/dL Est GFR ( Amer) 15 Est GFR (Non-Af Amer) 12 POC Glucose (mg/dL) (65-110) mg/dL Random Glucose 126 H (75-110) mg/dL Hemoglobin A1c (4.2-6.5) % Lactic Acid (0.7-2.1) mmol/L Calcium 9.3 (8.6-10.4) mg/dl Phosphorus 8.1 H (2.5-4.5) mg/dL Magnesium 1.9 (1.6-2.3) mg/dL Total Bilirubin (0.2-1.3) mg/dL AST (17-59) U/L ALT (21-72) U/L Alkaline Phosphatase (38-126) U/L Total Creatine Kinase (55-170) U/L CK-MB (Mass) (0.0-3.38) ng/mL Troponin I (0.00-0.120) ng/mL NT-Pro-B Natriuret Pep (0-900) pg/mL Total Protein (6.3-8.3) g/dL Albumin (3.5-5.0) g/dL Globulin (2.2-3.9) gm/dL Albumin/Globulin Ratio (1.0-2.1) Triglycerides (0-149) mg/dL Cholesterol (0-199) mg/dL LDL Cholesterol Direct (0-129) mg/dL HDL Cholesterol (30-70) mg/dL Procalcitonin (0.19-0.49) NG/ML TSH 3rd Generation (0.46-4.68) mIU/L Arterial Blood Potassium 2.3 L* (3.6-5.2) mmol/L Venous Blood Potassium 4.0 (3.6-5.2) mmol/L Urine Color (YELLOW) Urine Clarity (Clear) Urine pH (5.0-8.0) Ur Specific [place] (1.003-1.030) Urine Protein (NEGATIVE) mg/dL Urine Glucose (UA) (Normal) mg/dL Urine Ketones (NEGATIVE) mg/dL Urine Blood (NEGATIVE) Urine Nitrate (NEGATIVE) Urine Bilirubin (NEGATIVE) Urine Urobilinogen (0.2-1.0) mg/dL Ur Leukocyte Esterase (Negative) [place]/uL Urine WBC (Auto) (0-5) /hpf Urine RBC (Auto) (0-3) /hpf Ur Squamous Epith Cells (0-5) /hpf Urine Bacteria (<OCC) Random Vancomycin ug/mL Digoxin (0.8-2.0) ng/mL Urine Opiates Screen (NEGATIVE) Urine Methadone Screen (NEGATIVE) Ur Barbiturates Screen (NEGATIVE) Ur Phencyclidine Scrn (NEGATIVE) Ur Amphetamines Screen (NEGATIVE) U Benzodiazepines Scrn (NEGATIVE) U Oth Cocaine Metabols (NEGATIVE) U Cannabinoids Screen (NEGATIVE) C. difficile Ag & Toxin (NEGATIVE) Hep Bs Antigen (NEGATIVE) Hep Bs Antibody (NEGATIVE) Hep B Core IgM Ab (NEGATIVE) Hepatitis C Antibody (NEGATIVE) Blood Type Antibody Screen 04/02/18 04/02/18 04/02/18 Range/Units 20:24 19:46 19:27 WBC (4.8-10.8) K/uL RBC (4.40-5.90) Mil/uL Hgb (12.0-18.0) g/dL Hct (35.0-51.0) % MCV (80.0-94.0) fL MCH (27.0-31.0) pg MCHC (33.0-37.0) g/dL RDW (11.5-14.5) % Plt Count (130-400) K/uL MPV (7.2-11.7) fL Neut % (Auto) (50.0-75.0) % Lymph % (Auto) (20.0-40.0) % [place] % (Auto) (0.0-10.0) % Eos % (Auto) (0.0-4.0) % Baso % (Auto) (0.0-2.0) % Neut # (Auto) (1.8-7.0) K/uL Lymph # (Auto) (1.0-4.3) K/uL [place] # (Auto) (0.0-0.8) K/uL Eos # (Auto) (0.0-0.7) K/uL Baso # (Auto) (0.0-0.2) K/uL Neutrophils % (Manual) (50-75) % Band Neutrophils % (0-2) % Lymphocytes % (Manual) (20-40) % Monocytes % (Manual) (0-10) % Metamyelocytes % (0-0) % Myelocytes % (0-0) % Toxic Granulation Platelet Estimate (NORMAL) Large Platelets Giant Platelets RBC Morphology Polychromasia Hypochromasia (manual) Poikilocytosis (manual Anisocytosis (manual) Microcytosis (manual) Macrocytosis (manual) [place] Cells Smear Path Review PT (9.7-12.2) SECONDS INR APTT (21-34) SECONDS Puncture Site pCO2 (35-45) mm/Hg pO2 (30-55) mm/Hg HCO3 (21-28) mmol/L ABG pH (7.35-7.45) ABG Total CO2 (22-28) mmol/L ABG O2 Saturation (95-98) % ABG Base Excess (-2.0-3.0) mmol/L [place] Test ABG Potassium (3.6-5.2) mmol/L VBG pH (7.32-7.43) VBG pCO2 (40-60) mmHg VBG HCO3 mmol/L VBG Total CO2 (22-28) mmol/L VBG O2 Sat (Calc) (40-65) % VBG Base Excess (0.0-2.0) mmol/L VBG Potassium (3.6-5.2) mmol/L A-a O2 Difference mm/Hg Respiratory Index Sodium (132-148) mmol/l Chloride (98-107) mmol/L Glucose (75-110) mg/dl Lactate (0.7-2.1) mmol/L Liter Flow FiO2 % Inspiratory BiPAP Expiratory BiPAP Crit Value Called To Crit Value Called By Crit Value Read Back Blood Gas Notified Time Potassium (3.6-5.2) mmol/L Carbon Dioxide (22-30) mmol/L Anion Gap (10-20) BUN (9-20) mg/dL Creatinine (0.8-1.5) mg/dL Est GFR ( Amer) Est GFR (Non-Af Amer) POC Glucose (mg/dL) 137 H (65-110) mg/dL Random Glucose (75-110) mg/dL Hemoglobin A1c (4.2-6.5) % Lactic Acid (0.7-2.1) mmol/L Calcium (8.6-10.4) mg/dl Phosphorus (2.5-4.5) mg/dL Magnesium (1.6-2.3) mg/dL Total Bilirubin (0.2-1.3) mg/dL AST (17-59) U/L ALT (21-72) U/L Alkaline Phosphatase (38-126) U/L Total Creatine Kinase (55-170) U/L CK-MB (Mass) (0.0-3.38) ng/mL Troponin I (0.00-0.120) ng/mL NT-Pro-B Natriuret Pep (0-900) pg/mL Total Protein (6.3-8.3) g/dL Albumin (3.5-5.0) g/dL Globulin (2.2-3.9) gm/dL Albumin/Globulin Ratio (1.0-2.1) Triglycerides (0-149) mg/dL Cholesterol (0-199) mg/dL LDL Cholesterol Direct (0-129) mg/dL HDL Cholesterol (30-70) mg/dL Procalcitonin (0.19-0.49) NG/ML TSH 3rd Generation (0.46-4.68) mIU/L Arterial Blood Potassium (3.6-5.2) mmol/L Venous Blood Potassium (3.6-5.2) mmol/L Urine Color (YELLOW) Urine Clarity (Clear) Urine pH (5.0-8.0) Ur Specific [place] (1.003-1.030) Urine Protein (NEGATIVE) mg/dL Urine Glucose (UA) (Normal) mg/dL Urine Ketones (NEGATIVE) mg/dL Urine Blood (NEGATIVE) Urine Nitrate (NEGATIVE) Urine Bilirubin (NEGATIVE) Urine Urobilinogen (0.2-1.0) mg/dL Ur Leukocyte Esterase (Negative) [place]/uL Urine WBC (Auto) (0-5) /hpf Urine RBC (Auto) (0-3) /hpf Ur Squamous Epith Cells (0-5) /hpf Urine Bacteria (<OCC) Random Vancomycin ug/mL Digoxin (0.8-2.0) ng/mL Urine Opiates Screen (NEGATIVE) Urine Methadone Screen (NEGATIVE) Ur Barbiturates Screen (NEGATIVE) Ur Phencyclidine Scrn (NEGATIVE) Ur Amphetamines Screen (NEGATIVE) U Benzodiazepines Scrn (NEGATIVE) U Oth Cocaine Metabols (NEGATIVE) U Cannabinoids Screen (NEGATIVE) C. difficile Ag & Toxin Negative (NEGATIVE) Hep Bs Antigen (NEGATIVE) Hep Bs Antibody Negative (NEGATIVE) Hep B Core IgM Ab (NEGATIVE) Hepatitis C Antibody (NEGATIVE) Blood Type Antibody Screen 04/02/18 04/02/18 04/02/18 Range/Units 19:27 18:51 18:36 WBC (4.8-10.8) K/uL RBC (4.40-5.90) Mil/uL Hgb (12.0-18.0) g/dL Hct (35.0-51.0) % MCV (80.0-94.0) fL MCH (27.0-31.0) pg MCHC (33.0-37.0) g/dL RDW (11.5-14.5) % Plt Count (130-400) K/uL MPV (7.2-11.7) fL Neut % (Auto) (50.0-75.0) % Lymph % (Auto) (20.0-40.0) % [place] % (Auto) (0.0-10.0) % Eos % (Auto) (0.0-4.0) % Baso % (Auto) (0.0-2.0) % Neut # (Auto) (1.8-7.0) K/uL Lymph # (Auto) (1.0-4.3) K/uL [place] # (Auto) (0.0-0.8) K/uL Eos # (Auto) (0.0-0.7) K/uL Baso # (Auto) (0.0-0.2) K/uL Neutrophils % (Manual) (50-75) % Band Neutrophils % (0-2) % Lymphocytes % (Manual) (20-40) % Monocytes % (Manual) (0-10) % Metamyelocytes % (0-0) % Myelocytes % (0-0) % Toxic Granulation Platelet Estimate (NORMAL) Large Platelets Giant Platelets RBC Morphology Polychromasia Hypochromasia (manual) Poikilocytosis (manual Anisocytosis (manual) Microcytosis (manual) Macrocytosis (manual) [place] Cells Smear Path Review PT (9.7-12.2) SECONDS INR APTT (21-34) SECONDS Puncture Site pCO2 (35-45) mm/Hg pO2 44 (30-55) mm/Hg HCO3 (21-28) mmol/L ABG pH (7.35-7.45) ABG Total CO2 (22-28) mmol/L ABG O2 Saturation (95-98) % ABG Base Excess (-2.0-3.0) mmol/L [place] Test ABG Potassium (3.6-5.2) mmol/L VBG pH 7.07 L* (7.32-7.43) VBG pCO2 15 L* (40-60) mmHg VBG HCO3 5.3 mmol/L VBG Total CO2 4.8 L (22-28) mmol/L VBG O2 Sat (Calc) 82.4 H (40-65) % VBG Base Excess -23.8 L (0.0-2.0) mmol/L VBG Potassium 4.1 (3.6-5.2) mmol/L A-a O2 Difference mm/Hg Respiratory Index Sodium 135.0 (132-148) mmol/l Chloride 114.0 H (98-107) mmol/L Glucose 108 (75-110) mg/dl Lactate 2.3 H (0.7-2.1) mmol/L Liter Flow FiO2 % Inspiratory BiPAP Expiratory BiPAP Crit Value 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 Crit Value Called By Ghazala Crit Value Read Back Y Blood Gas Notified Time 1840 Potassium (3.6-5.2) mmol/L Carbon Dioxide (22-30) mmol/L Anion Gap (10-20) BUN (9-20) mg/dL Creatinine (0.8-1.5) mg/dL Est GFR ( Amer) Est GFR (Non-Af Amer) POC Glucose (mg/dL) (65-110) mg/dL Random Glucose (75-110) mg/dL Hemoglobin A1c (4.2-6.5) % Lactic Acid (0.7-2.1) mmol/L Calcium (8.6-10.4) mg/dl Phosphorus (2.5-4.5) mg/dL Magnesium (1.6-2.3) mg/dL Total Bilirubin (0.2-1.3) mg/dL AST (17-59) U/L ALT (21-72) U/L Alkaline Phosphatase (38-126) U/L Total Creatine Kinase (55-170) U/L CK-MB (Mass) (0.0-3.38) ng/mL Troponin I (0.00-0.120) ng/mL NT-Pro-B Natriuret Pep (0-900) pg/mL Total Protein (6.3-8.3) g/dL Albumin (3.5-5.0) g/dL Globulin (2.2-3.9) gm/dL Albumin/Globulin Ratio (1.0-2.1) Triglycerides (0-149) mg/dL Cholesterol (0-199) mg/dL LDL Cholesterol Direct (0-129) mg/dL HDL Cholesterol (30-70) mg/dL Procalcitonin 6.48 H (0.19-0.49) NG/ML TSH 3rd Generation (0.46-4.68) mIU/L Arterial Blood Potassium (3.6-5.2) mmol/L Venous Blood Potassium 4.1 (3.6-5.2) mmol/L Urine Color (YELLOW) Urine Clarity (Clear) Urine pH (5.0-8.0) Ur Specific [place] (1.003-1.030) Urine Protein (NEGATIVE) mg/dL Urine Glucose (UA) (Normal) mg/dL Urine Ketones (NEGATIVE) mg/dL Urine Blood (NEGATIVE) Urine Nitrate (NEGATIVE) Urine Bilirubin (NEGATIVE) Urine Urobilinogen (0.2-1.0) mg/dL Ur Leukocyte Esterase (Negative) [place]/uL Urine WBC (Auto) (0-5) /hpf Urine RBC (Auto) (0-3) /hpf Ur Squamous Epith Cells (0-5) /hpf Urine Bacteria (<OCC) Random Vancomycin ug/mL Digoxin (0.8-2.0) ng/mL Urine Opiates Screen (NEGATIVE) Urine Methadone Screen (NEGATIVE) Ur Barbiturates Screen (NEGATIVE) Ur Phencyclidine Scrn (NEGATIVE) Ur Amphetamines Screen (NEGATIVE) U Benzodiazepines Scrn (NEGATIVE) U Oth Cocaine Metabols (NEGATIVE) U Cannabinoids Screen (NEGATIVE) C. difficile Ag & Toxin (NEGATIVE) Hep Bs Antigen Negative (NEGATIVE) Hep Bs Antibody (NEGATIVE) Hep B Core IgM Ab Negative (NEGATIVE) Hepatitis C Antibody Negative (NEGATIVE) Blood Type Antibody Screen 04/02/18 04/02/18 04/02/18 Range/Units 18:08 18:08 16:10 WBC (4.8-10.8) K/uL RBC (4.40-5.90) Mil/uL Hgb (12.0-18.0) g/dL Hct (35.0-51.0) % MCV (80.0-94.0) fL MCH (27.0-31.0) pg MCHC (33.0-37.0) g/dL RDW (11.5-14.5) % Plt Count (130-400) K/uL MPV (7.2-11.7) fL Neut % (Auto) (50.0-75.0) % Lymph % (Auto) (20.0-40.0) % [place] % (Auto) (0.0-10.0) % Eos % (Auto) (0.0-4.0) % Baso % (Auto) (0.0-2.0) % Neut # (Auto) (1.8-7.0) K/uL Lymph # (Auto) (1.0-4.3) K/uL [place] # (Auto) (0.0-0.8) K/uL Eos # (Auto) (0.0-0.7) K/uL Baso # (Auto) (0.0-0.2) K/uL Neutrophils % (Manual) (50-75) % Band Neutrophils % (0-2) % Lymphocytes % (Manual) (20-40) % Monocytes % (Manual) (0-10) % Metamyelocytes % (0-0) % Myelocytes % (0-0) % Toxic Granulation Platelet Estimate (NORMAL) Large Platelets Giant Platelets RBC Morphology Polychromasia Hypochromasia (manual) Poikilocytosis (manual Anisocytosis (manual) Microcytosis (manual) Macrocytosis (manual) [place] Cells Smear Path Review PT (9.7-12.2) SECONDS INR APTT (21-34) SECONDS Puncture Site pCO2 (35-45) mm/Hg pO2 (30-55) mm/Hg HCO3 (21-28) mmol/L ABG pH (7.35-7.45) ABG Total CO2 (22-28) mmol/L ABG O2 Saturation (95-98) % ABG Base Excess (-2.0-3.0) mmol/L [place] Test ABG Potassium (3.6-5.2) mmol/L VBG pH (7.32-7.43) VBG pCO2 (40-60) mmHg VBG HCO3 mmol/L VBG Total CO2 (22-28) mmol/L VBG O2 Sat (Calc) (40-65) % VBG Base Excess (0.0-2.0) mmol/L VBG Potassium (3.6-5.2) mmol/L A-a O2 Difference mm/Hg Respiratory Index Sodium 131 L (132-148) mmol/l Chloride 109 H (98-107) mmol/L Glucose (75-110) mg/dl Lactate (0.7-2.1) mmol/L Liter Flow FiO2 % Inspiratory BiPAP Expiratory BiPAP Crit Value Called To Crit Value Called By Crit Value Read Back Blood Gas Notified Time Potassium 7.1 H* D (3.6-5.2) mmol/L Carbon Dioxide < 5 L* D (22-30) mmol/L Anion Gap 24 H (10-20) BUN 150 H* D (9-20) mg/dL Creatinine 6.2 H (0.8-1.5) mg/dL Est GFR ( Amer) 11 Est GFR (Non-Af Amer) 9 POC Glucose (mg/dL) (65-110) mg/dL Random Glucose 176 H (75-110) mg/dL Hemoglobin A1c (4.2-6.5) % Lactic Acid 3.1 H (0.7-2.1) mmol/L Calcium 7.0 L (8.6-10.4) mg/dl Phosphorus 12.4 H (2.5-4.5) mg/dL Magnesium 2.4 H (1.6-2.3) mg/dL Total Bilirubin 0.8 (0.2-1.3) mg/dL AST 25 (17-59) U/L ALT 17 L (21-72) U/L Alkaline Phosphatase 95 (38-126) U/L Total Creatine Kinase 476 H (55-170) U/L CK-MB (Mass) 12.1 H (0.0-3.38) ng/mL Troponin I < 0.0120 < 0.0120 (0.00-0.120) ng/mL NT-Pro-B Natriuret Pep 5290 H 5000 H (0-900) pg/mL Total Protein 5.9 L (6.3-8.3) g/dL Albumin 2.9 L (3.5-5.0) g/dL Globulin 3.1 (2.2-3.9) gm/dL Albumin/Globulin Ratio 0.9 L (1.0-2.1) Triglycerides (0-149) mg/dL Cholesterol (0-199) mg/dL LDL Cholesterol Direct (0-129) mg/dL HDL Cholesterol (30-70) mg/dL Procalcitonin (0.19-0.49) NG/ML TSH 3rd Generation 2.67 (0.46-4.68) mIU/L Arterial Blood Potassium (3.6-5.2) mmol/L Venous Blood Potassium (3.6-5.2) mmol/L Urine Color (YELLOW) Urine Clarity (Clear) Urine pH (5.0-8.0) Ur Specific [place] (1.003-1.030) Urine Protein (NEGATIVE) mg/dL Urine Glucose (UA) (Normal) mg/dL Urine Ketones (NEGATIVE) mg/dL Urine Blood (NEGATIVE) Urine Nitrate (NEGATIVE) Urine Bilirubin (NEGATIVE) Urine Urobilinogen (0.2-1.0) mg/dL Ur Leukocyte Esterase (Negative) [place]/uL Urine WBC (Auto) (0-5) /hpf Urine RBC (Auto) (0-3) /hpf Ur Squamous Epith Cells (0-5) /hpf Urine Bacteria (<OCC) Random Vancomycin ug/mL Digoxin (0.8-2.0) ng/mL Urine Opiates Screen (NEGATIVE) Urine Methadone Screen (NEGATIVE) Ur Barbiturates Screen (NEGATIVE) Ur Phencyclidine Scrn (NEGATIVE) Ur Amphetamines Screen (NEGATIVE) U Benzodiazepines Scrn (NEGATIVE) U Oth Cocaine Metabols (NEGATIVE) U Cannabinoids Screen (NEGATIVE) C. difficile Ag & Toxin (NEGATIVE) Hep Bs Antigen (NEGATIVE) Hep Bs Antibody (NEGATIVE) Hep B Core IgM Ab (NEGATIVE) Hepatitis C Antibody (NEGATIVE) Blood Type Antibody Screen 04/02/18 04/02/18 04/02/18 Range/Units 16:03 15:30 15:25 WBC (4.8-10.8) K/uL RBC (4.40-5.90) Mil/uL Hgb (12.0-18.0) g/dL Hct (35.0-51.0) % MCV (80.0-94.0) fL MCH (27.0-31.0) pg MCHC (33.0-37.0) g/dL RDW (11.5-14.5) % Plt Count (130-400) K/uL MPV (7.2-11.7) fL Neut % (Auto) (50.0-75.0) % Lymph % (Auto) (20.0-40.0) % [place] % (Auto) (0.0-10.0) % Eos % (Auto) (0.0-4.0) % Baso % (Auto) (0.0-2.0) % Neut # (Auto) (1.8-7.0) K/uL Lymph # (Auto) (1.0-4.3) K/uL [place] # (Auto) (0.0-0.8) K/uL Eos # (Auto) (0.0-0.7) K/uL Baso # (Auto) (0.0-0.2) K/uL Neutrophils % (Manual) (50-75) % Band Neutrophils % (0-2) % Lymphocytes % (Manual) (20-40) % Monocytes % (Manual) (0-10) % Metamyelocytes % (0-0) % Myelocytes % (0-0) % Toxic Granulation Platelet Estimate (NORMAL) Large Platelets Giant Platelets RBC Morphology Polychromasia Hypochromasia (manual) Poikilocytosis (manual Anisocytosis (manual) Microcytosis (manual) Macrocytosis (manual) [place] Cells Smear Path Review PT 13.3 H (9.7-12.2) SECONDS INR 1.2 APTT 21 (21-34) SECONDS Puncture Site pCO2 (35-45) mm/Hg pO2 60 H (30-55) mm/Hg HCO3 (21-28) mmol/L ABG pH (7.35-7.45) ABG Total CO2 (22-28) mmol/L ABG O2 Saturation (95-98) % ABG Base Excess (-2.0-3.0) mmol/L [place] Test ABG Potassium (3.6-5.2) mmol/L VBG pH 6.87 L* (7.32-7.43) VBG pCO2 17 L* (40-60) mmHg VBG HCO3 1.2 mmol/L VBG Total CO2 3.6 L (22-28) mmol/L VBG O2 Sat (Calc) 90.1 H (40-65) % VBG Base Excess -29.2 L (0.0-2.0) mmol/L VBG Potassium 11.7 H* (3.6-5.2) mmol/L A-a O2 Difference mm/Hg Respiratory Index Sodium 123.0 L (132-148) mmol/l Chloride 99.0 (98-107) mmol/L Glucose 202 H (75-110) mg/dl Lactate 3.3 H (0.7-2.1) mmol/L Liter Flow FiO2 % Inspiratory BiPAP Expiratory BiPAP Crit Value 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 Crit Value Called By Dennis raza md Crit Value Read Back Y Blood Gas Notified Time 1535 Potassium (3.6-5.2) mmol/L Carbon Dioxide (22-30) mmol/L Anion Gap (10-20) BUN (9-20) mg/dL Creatinine (0.8-1.5) mg/dL Est GFR ( Amer) Est GFR (Non-Af Amer) POC Glucose (mg/dL) (65-110) mg/dL Random Glucose (75-110) mg/dL Hemoglobin A1c (4.2-6.5) % Lactic Acid (0.7-2.1) mmol/L Calcium (8.6-10.4) mg/dl Phosphorus (2.5-4.5) mg/dL Magnesium (1.6-2.3) mg/dL Total Bilirubin (0.2-1.3) mg/dL AST (17-59) U/L ALT (21-72) U/L Alkaline Phosphatase (38-126) U/L Total Creatine Kinase (55-170) U/L CK-MB (Mass) (0.0-3.38) ng/mL Troponin I (0.00-0.120) ng/mL NT-Pro-B Natriuret Pep (0-900) pg/mL Total Protein (6.3-8.3) g/dL Albumin (3.5-5.0) g/dL Globulin (2.2-3.9) gm/dL Albumin/Globulin Ratio (1.0-2.1) Triglycerides (0-149) mg/dL Cholesterol (0-199) mg/dL LDL Cholesterol Direct (0-129) mg/dL HDL Cholesterol (30-70) mg/dL Procalcitonin (0.19-0.49) NG/ML TSH 3rd Generation (0.46-4.68) mIU/L Arterial Blood Potassium (3.6-5.2) mmol/L Venous Blood Potassium 11.7 H* (3.6-5.2) mmol/L Urine Color Yellow (YELLOW) Urine Clarity Hazy (Clear) Urine pH 5.0 (5.0-8.0) Ur Specific [place] 1.014 (1.003-1.030) Urine Protein Negative (NEGATIVE) mg/dL Urine Glucose (UA) Normal (Normal) mg/dL Urine Ketones Negative (NEGATIVE) mg/dL Urine Blood 1+ H (NEGATIVE) Urine Nitrate Negative (NEGATIVE) Urine Bilirubin Negative (NEGATIVE) Urine Urobilinogen Normal (0.2-1.0) mg/dL Ur Leukocyte Esterase 1+ H (Negative) [place]/uL Urine WBC (Auto) 7 H (0-5) /hpf Urine RBC (Auto) 7 H (0-3) /hpf Ur Squamous Epith Cells 1 (0-5) /hpf Urine Bacteria Rare (<OCC) Random Vancomycin ug/mL Digoxin (0.8-2.0) ng/mL Urine Opiates Screen (NEGATIVE) Urine Methadone Screen (NEGATIVE) Ur Barbiturates Screen (NEGATIVE) Ur Phencyclidine Scrn (NEGATIVE) Ur Amphetamines Screen (NEGATIVE) U Benzodiazepines Scrn (NEGATIVE) U Oth Cocaine Metabols (NEGATIVE) U Cannabinoids Screen (NEGATIVE) C. difficile Ag & Toxin (NEGATIVE) Hep Bs Antigen (NEGATIVE) Hep Bs Antibody (NEGATIVE) Hep B Core IgM Ab (NEGATIVE) Hepatitis C Antibody (NEGATIVE) Blood Type Antibody Screen 06/24/18 Range/Units 15:25 WBC 52.3 H* D (4.8-10.8) K/uL RBC 4.32 L (4.40-5.90) Mil/uL Hgb 13.2 D (12.0-18.0) g/dL Hct 41.2 (35.0-51.0) % MCV 95.5 H D (80.0-94.0) fL MCH 30.6 (27.0-31.0) pg MCHC 32.0 L (33.0-37.0) g/dL RDW 15.6 H (11.5-14.5) % Plt Count 516 H D (130-400) K/uL MPV 8.7 (7.2-11.7) fL Neut % (Auto) 96.4 H (50.0-75.0) % Lymph % (Auto) 0.7 L (20.0-40.0) % [place] % (Auto) 2.3 (0.0-10.0) % Eos % (Auto) 0.1 (0.0-4.0) % Baso % (Auto) 0.5 (0.0-2.0) % Neut # (Auto) 50.4 H (1.8-7.0) K/uL Lymph # (Auto) 0.4 L (1.0-4.3) K/uL [place] # (Auto) 1.2 H (0.0-0.8) K/uL Eos # (Auto) 0.0 (0.0-0.7) K/uL Baso # (Auto) 0.3 H (0.0-0.2) K/uL Neutrophils % (Manual) 90 H (50-75) % Band Neutrophils % 2 (0-2) % Lymphocytes % (Manual) 1 L (20-40) % Monocytes % (Manual) 4 (0-10) % Metamyelocytes % 1 H (0-0) % Myelocytes % 2 H (0-0) % Toxic Granulation Present Platelet Estimate Increased H (NORMAL) Large Platelets Present Giant Platelets RBC Morphology Polychromasia Hypochromasia (manual) Poikilocytosis (manual Slight Anisocytosis (manual) Slight Microcytosis (manual) Slight Macrocytosis (manual) Slight [place] Cells Smear Path Review PT (9.7-12.2) SECONDS INR APTT (21-34) SECONDS Puncture Site pCO2 (35-45) mm/Hg pO2 (30-55) mm/Hg HCO3 (21-28) mmol/L ABG pH (7.35-7.45) ABG Total CO2 (22-28) mmol/L ABG O2 Saturation (95-98) % ABG Base Excess (-2.0-3.0) mmol/L [place] Test ABG Potassium (3.6-5.2) mmol/L VBG pH (7.32-7.43) VBG pCO2 (40-60) mmHg VBG HCO3 mmol/L VBG Total CO2 (22-28) mmol/L VBG O2 Sat (Calc) (40-65) % VBG Base Excess (0.0-2.0) mmol/L VBG Potassium (3.6-5.2) mmol/L A-a O2 Difference mm/Hg Respiratory Index Sodium (132-148) mmol/l Chloride (98-107) mmol/L Glucose (75-110) mg/dl Lactate (0.7-2.1) mmol/L Liter Flow FiO2 % Inspiratory BiPAP Expiratory BiPAP Crit Value Called To Crit Value Called By Crit Value Read Back Blood Gas Notified Time Potassium (3.6-5.2) mmol/L Carbon Dioxide (22-30) mmol/L Anion Gap (10-20) BUN (9-20) mg/dL Creatinine (0.8-1.5) mg/dL Est GFR ( Amer) Est GFR (Non-Af Amer) POC Glucose (mg/dL) (65-110) mg/dL Random Glucose (75-110) mg/dL Hemoglobin A1c (4.2-6.5) % Lactic Acid (0.7-2.1) mmol/L Calcium (8.6-10.4) mg/dl Phosphorus (2.5-4.5) mg/dL Magnesium (1.6-2.3) mg/dL Total Bilirubin (0.2-1.3) mg/dL AST (17-59) U/L ALT (21-72) U/L Alkaline Phosphatase (38-126) U/L Total Creatine Kinase (55-170) U/L CK-MB (Mass) (0.0-3.38) ng/mL Troponin I (0.00-0.120) ng/mL NT-Pro-B Natriuret Pep (0-900) pg/mL Total Protein (6.3-8.3) g/dL Albumin (3.5-5.0) g/dL Globulin (2.2-3.9) gm/dL Albumin/Globulin Ratio (1.0-2.1) Triglycerides (0-149) mg/dL Cholesterol (0-199) mg/dL LDL Cholesterol Direct (0-129) mg/dL HDL Cholesterol (30-70) mg/dL Procalcitonin (0.19-0.49) NG/ML TSH 3rd Generation (0.46-4.68) mIU/L Arterial Blood Potassium (3.6-5.2) mmol/L Venous Blood Potassium (3.6-5.2) mmol/L Urine Color (YELLOW) Urine Clarity (Clear) Urine pH (5.0-8.0) Ur Specific [place] (1.003-1.030) Urine Protein (NEGATIVE) mg/dL Urine Glucose (UA) (Normal) mg/dL Urine Ketones (NEGATIVE) mg/dL Urine Blood (NEGATIVE) Urine Nitrate (NEGATIVE) Urine Bilirubin (NEGATIVE) Urine Urobilinogen (0.2-1.0) mg/dL Ur Leukocyte Esterase (Negative) [place]/uL Urine WBC (Auto) (0-5) /hpf Urine RBC (Auto) (0-3) /hpf Ur Squamous Epith Cells (0-5) /hpf Urine Bacteria (<OCC) Random Vancomycin ug/mL Digoxin (0.8-2.0) ng/mL Urine Opiates Screen (NEGATIVE) Urine Methadone Screen (NEGATIVE) Ur Barbiturates Screen (NEGATIVE) Ur Phencyclidine Scrn (NEGATIVE) Ur Amphetamines Screen (NEGATIVE) U Benzodiazepines Scrn (NEGATIVE) U Oth Cocaine Metabols (NEGATIVE) U Cannabinoids Screen (NEGATIVE) C. difficile Ag & Toxin (NEGATIVE) Hep Bs Antigen (NEGATIVE) Hep Bs Antibody (NEGATIVE) Hep B Core IgM Ab (NEGATIVE) Hepatitis C Antibody (NEGATIVE) Blood Type Antibody Screen Laboratory Results - last 24 hr 04/02/18 04/02/18 04/02/18 15:25 15:25 15:30 WBC 52.3 H* D RBC 4.32 L Hgb 13.2 D Hct 41.2 MCV 95.5 H D MCH 30.6 MCHC 32.0 L RDW 15.6 H Plt Count 516 H D MPV 8.7 Neut % (Auto) 96.4 H Lymph % (Auto) 0.7 L [place] % (Auto) 2.3 Eos % (Auto) 0.1 Baso % (Auto) 0.5 Neut # (Auto) 50.4 H Lymph # (Auto) 0.4 L [place] # (Auto) 1.2 H Eos # (Auto) 0.0 Baso # (Auto) 0.3 H Neutrophils % (Manual) 90 H Band Neutrophils % 2 Lymphocytes % (Manual) 1 L Monocytes % (Manual) 4 Metamyelocytes % 1 H Myelocytes % 2 H Toxic Granulation Present Platelet Estimate Increased H Large Platelets Present Giant Platelets RBC Morphology Polychromasia Hypochromasia (manual) Poikilocytosis (manual Slight Anisocytosis (manual) Slight Microcytosis (manual) Slight Macrocytosis (manual) Slight [place] Cells Smear Path Review PT 13.3 H INR 1.2 APTT 21 Puncture Site pCO2 pO2 60 H HCO3 ABG pH ABG Total CO2 ABG O2 Saturation ABG Base Excess [place] Test ABG Potassium VBG pH 6.87 L* VBG pCO2 17 L* VBG HCO3 1.2 VBG Total CO2 3.6 L VBG O2 Sat (Calc) 90.1 H VBG Base Excess -29.2 L VBG Potassium 11.7 H* A-a O2 Difference Respiratory Index Sodium 123.0 L Chloride 99.0 Glucose 202 H Lactate 3.3 H Liter Flow FiO2 Inspiratory BiPAP Expiratory BiPAP Crit Value 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 Crit Value Called By Dennis raza md Crit Value Read Back Y Blood Gas Notified Time 1535 Potassium Carbon Dioxide Anion Gap BUN Creatinine Est GFR ( Amer) Est GFR (Non-Af Amer) POC Glucose (mg/dL) Random Glucose Hemoglobin A1c Lactic Acid Calcium Phosphorus Magnesium Total Bilirubin AST ALT Alkaline Phosphatase Total Creatine Kinase CK-MB (Mass) Troponin I NT-Pro-B Natriuret Pep Total Protein Albumin Globulin Albumin/Globulin Ratio Triglycerides Cholesterol LDL Cholesterol Direct HDL Cholesterol Procalcitonin TSH 3rd Generation Arterial Blood Potassium Venous Blood Potassium 11.7 H* Urine Color Urine Clarity Urine pH Ur Specific [place] Urine Protein Urine Glucose (UA) Urine Ketones Urine Blood Urine Nitrate Urine Bilirubin Urine Urobilinogen Ur Leukocyte Esterase Urine WBC (Auto) Urine RBC (Auto) Ur Squamous Epith Cells Urine Bacteria Random Vancomycin Digoxin Urine Opiates Screen Urine Methadone Screen Ur Barbiturates Screen Ur Phencyclidine Scrn Ur Amphetamines Screen U Benzodiazepines Scrn U Oth Cocaine Metabols U Cannabinoids Screen C. difficile Ag & Toxin Hep Bs Antigen Hep Bs Antibody Hep B Core IgM Ab Hepatitis C Antibody Blood Type Antibody Screen 04/02/18 04/02/18 04/02/18 16:03 16:10 18:08 WBC RBC Hgb Hct MCV MCH MCHC RDW Plt Count MPV Neut % (Auto) Lymph % (Auto) [place] % (Auto) Eos % (Auto) Baso % (Auto) Neut # (Auto) Lymph # (Auto) [place] # (Auto) Eos # (Auto) Baso # (Auto) Neutrophils % (Manual) Band Neutrophils % Lymphocytes % (Manual) Monocytes % (Manual) Metamyelocytes % Myelocytes % Toxic Granulation Platelet Estimate Large Platelets Giant Platelets RBC Morphology Polychromasia Hypochromasia (manual) Poikilocytosis (manual Anisocytosis (manual) Microcytosis (manual) Macrocytosis (manual) [place] Cells Smear Path Review PT INR APTT Puncture Site pCO2 pO2 HCO3 ABG pH ABG Total CO2 ABG O2 Saturation ABG Base Excess [place] Test ABG Potassium VBG pH VBG pCO2 VBG HCO3 VBG Total CO2 VBG O2 Sat (Calc) VBG Base Excess VBG Potassium A-a O2 Difference Respiratory Index Sodium 131 L Chloride 109 H Glucose Lactate Liter Flow FiO2 Inspiratory BiPAP Expiratory BiPAP Crit Value Called To Crit Value Called By Crit Value Read Back Blood Gas Notified Time Potassium 7.1 H* D Carbon Dioxide < 5 L* D Anion Gap 24 H BUN 150 H* D Creatinine 6.2 H Est GFR ( Amer) 11 Est GFR (Non-Af Amer) 9 POC Glucose (mg/dL) Random Glucose 176 H Hemoglobin A1c Lactic Acid Calcium 7.0 L Phosphorus 12.4 H Magnesium 2.4 H Total Bilirubin 0.8 AST 25 ALT 17 L Alkaline Phosphatase 95 Total Creatine Kinase 476 H CK-MB (Mass) 12.1 H Troponin I < 0.0120 < 0.0120 NT-Pro-B Natriuret Pep 5000 H 5290 H Total Protein 5.9 L Albumin 2.9 L Globulin 3.1 Albumin/Globulin Ratio 0.9 L Triglycerides Cholesterol LDL Cholesterol Direct HDL Cholesterol Procalcitonin TSH 3rd Generation 2.67 Arterial Blood Potassium Venous Blood Potassium Urine Color Yellow Urine Clarity Hazy Urine pH 5.0 Ur Specific [place] 1.014 Urine Protein Negative Urine Glucose (UA) Normal Urine Ketones Negative Urine Blood 1+ H Urine Nitrate Negative Urine Bilirubin Negative Urine Urobilinogen Normal Ur Leukocyte Esterase 1+ H Urine WBC (Auto) 7 H Urine RBC (Auto) 7 H Ur Squamous Epith Cells 1 Urine Bacteria Rare Random Vancomycin Digoxin Urine Opiates Screen Urine Methadone Screen Ur Barbiturates Screen Ur Phencyclidine Scrn Ur Amphetamines Screen U Benzodiazepines Scrn U Oth Cocaine Metabols U Cannabinoids Screen C. difficile Ag & Toxin Hep Bs Antigen Hep Bs Antibody Hep B Core IgM Ab Hepatitis C Antibody Blood Type Antibody Screen 04/02/18 04/02/18 04/02/18 18:08 18:36 18:51 WBC RBC Hgb Hct MCV MCH MCHC RDW Plt Count MPV Neut % (Auto) Lymph % (Auto) [place] % (Auto) Eos % (Auto) Baso % (Auto) Neut # (Auto) Lymph # (Auto) [place] # (Auto) Eos # (Auto) Baso # (Auto) Neutrophils % (Manual) Band Neutrophils % Lymphocytes % (Manual) Monocytes % (Manual) Metamyelocytes % Myelocytes % Toxic Granulation Platelet Estimate Large Platelets Giant Platelets RBC Morphology Polychromasia Hypochromasia (manual) Poikilocytosis (manual Anisocytosis (manual) Microcytosis (manual) Macrocytosis (manual) [place] Cells Smear Path Review PT INR APTT Puncture Site pCO2 pO2 44 HCO3 ABG pH ABG Total CO2 ABG O2 Saturation ABG Base Excess [place] Test ABG Potassium VBG pH 7.07 L* VBG pCO2 15 L* VBG HCO3 5.3 VBG Total CO2 4.8 L VBG O2 Sat (Calc) 82.4 H VBG Base Excess -23.8 L VBG Potassium 4.1 A-a O2 Difference Respiratory Index Sodium 135.0 Chloride 114.0 H Glucose 108 Lactate 2.3 H Liter Flow FiO2 Inspiratory BiPAP Expiratory BiPAP Crit Value 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 Crit Value Called By Ghazala Crit Value Read Back Y Blood Gas Notified Time 1840 Potassium Carbon Dioxide Anion Gap BUN Creatinine Est GFR ( Amer) Est GFR (Non-Af Amer) POC Glucose (mg/dL) Random Glucose Hemoglobin A1c Lactic Acid 3.1 H Calcium Phosphorus Magnesium Total Bilirubin AST ALT Alkaline Phosphatase Total Creatine Kinase CK-MB (Mass) Troponin I NT-Pro-B Natriuret Pep Total Protein Albumin Globulin Albumin/Globulin Ratio Triglycerides Cholesterol LDL Cholesterol Direct HDL Cholesterol Procalcitonin 6.48 H TSH 3rd Generation Arterial Blood Potassium Venous Blood Potassium 4.1 Urine Color Urine Clarity Urine pH Ur Specific [place] Urine Protein Urine Glucose (UA) Urine Ketones Urine Blood Urine Nitrate Urine Bilirubin Urine Urobilinogen Ur Leukocyte Esterase Urine WBC (Auto) Urine RBC (Auto) Ur Squamous Epith Cells Urine Bacteria Random Vancomycin Digoxin Urine Opiates Screen Urine Methadone Screen Ur Barbiturates Screen Ur Phencyclidine Scrn Ur Amphetamines Screen U Benzodiazepines Scrn U Oth Cocaine Metabols U Cannabinoids Screen C. difficile Ag & Toxin Hep Bs Antigen Hep Bs Antibody Hep B Core IgM Ab Hepatitis C Antibody Blood Type Antibody Screen 04/02/18 04/02/18 04/02/18 19:27 19:27 19:46 WBC RBC Hgb Hct MCV MCH MCHC RDW Plt Count MPV Neut % (Auto) Lymph % (Auto) [place] % (Auto) Eos % (Auto) Baso % (Auto) Neut # (Auto) Lymph # (Auto) [place] # (Auto) Eos # (Auto) Baso # (Auto) Neutrophils % (Manual) Band Neutrophils % Lymphocytes % (Manual) Monocytes % (Manual) Metamyelocytes % Myelocytes % Toxic Granulation Platelet Estimate Large Platelets Giant Platelets RBC Morphology Polychromasia Hypochromasia (manual) Poikilocytosis (manual Anisocytosis (manual) Microcytosis (manual) Macrocytosis (manual) [place] Cells Smear Path Review PT INR APTT Puncture Site pCO2 pO2 HCO3 ABG pH ABG Total CO2 ABG O2 Saturation ABG Base Excess [place] Test ABG Potassium VBG pH VBG pCO2 VBG HCO3 VBG Total CO2 VBG O2 Sat (Calc) VBG Base Excess VBG Potassium A-a O2 Difference Respiratory Index Sodium Chloride Glucose Lactate Liter Flow FiO2 Inspiratory BiPAP Expiratory BiPAP Crit Value Called To Crit Value Called By Crit Value Read Back Blood Gas Notified Time Potassium Carbon Dioxide Anion Gap BUN Creatinine Est GFR ( Amer) Est GFR (Non-Af Amer) POC Glucose (mg/dL) Random Glucose Hemoglobin A1c Lactic Acid Calcium Phosphorus Magnesium Total Bilirubin AST ALT Alkaline Phosphatase Total Creatine Kinase CK-MB (Mass) Troponin I NT-Pro-B Natriuret Pep Total Protein Albumin Globulin Albumin/Globulin Ratio Triglycerides Cholesterol LDL Cholesterol Direct HDL Cholesterol Procalcitonin TSH 3rd Generation Arterial Blood Potassium Venous Blood Potassium Urine Color Urine Clarity Urine pH Ur Specific [place] Urine Protein Urine Glucose (UA) Urine Ketones Urine Blood Urine Nitrate Urine Bilirubin Urine Urobilinogen Ur Leukocyte Esterase Urine WBC (Auto) Urine RBC (Auto) Ur Squamous Epith Cells Urine Bacteria Random Vancomycin Digoxin Urine Opiates Screen Urine Methadone Screen Ur Barbiturates Screen Ur Phencyclidine Scrn Ur Amphetamines Screen U Benzodiazepines Scrn U Oth Cocaine Metabols U Cannabinoids Screen C. difficile Ag & Toxin Negative Hep Bs Antigen Negative Hep Bs Antibody Negative Hep B Core IgM Ab Negative Hepatitis C Antibody Negative Blood Type Antibody Screen 04/02/18 04/02/18 04/02/18 20:24 20:40 20:49 WBC RBC Hgb Hct MCV MCH MCHC RDW Plt Count MPV Neut % (Auto) Lymph % (Auto) [place] % (Auto) Eos % (Auto) Baso % (Auto) Neut # (Auto) Lymph # (Auto) [place] # (Auto) Eos # (Auto) Baso # (Auto) Neutrophils % (Manual) Band Neutrophils % Lymphocytes % (Manual) Monocytes % (Manual) Metamyelocytes % Myelocytes % Toxic Granulation Platelet Estimate Large Platelets Giant Platelets RBC Morphology Polychromasia Hypochromasia (manual) Poikilocytosis (manual Anisocytosis (manual) Microcytosis (manual) Macrocytosis (manual) [place] Cells Smear Path Review PT INR APTT Puncture Site Rra pCO2 16 L* pO2 149 H 38 HCO3 12.3 L ABG pH 7.29 L ABG Total CO2 8.2 L ABG O2 Saturation 98.0 ABG Base Excess -16.3 L [place] Test Na ABG Potassium 2.3 L* VBG pH 7.24 L VBG pCO2 27 L VBG HCO3 12.9 VBG Total CO2 12.4 L VBG O2 Sat (Calc) 76.8 H VBG Base Excess -14.2 L VBG Potassium 4.0 A-a O2 Difference 45.0 Respiratory Index 0.3 Sodium 146.0 137.0 Chloride 124.0 H 108.0 H Glucose 100 125 H Lactate 2.5 H 4.4 H* Liter Flow 3.0 FiO2 30.0 Inspiratory BiPAP Expiratory BiPAP Crit Value Called To Ranjeet Pollack md Crit Value Called By Ghazala Vivar Crit Value Read Back Y Y Blood Gas Notified Time 2042 2052 Potassium Carbon Dioxide Anion Gap BUN Creatinine Est GFR ( Amer) Est GFR (Non-Af Amer) POC Glucose (mg/dL) 137 H Random Glucose Hemoglobin A1c Lactic Acid Calcium Phosphorus Magnesium Total Bilirubin AST ALT Alkaline Phosphatase Total Creatine Kinase CK-MB (Mass) Troponin I NT-Pro-B Natriuret Pep Total Protein Albumin Globulin Albumin/Globulin Ratio Triglycerides Cholesterol LDL Cholesterol Direct HDL Cholesterol Procalcitonin TSH 3rd Generation Arterial Blood Potassium 2.3 L* Venous Blood Potassium 4.0 Urine Color Urine Clarity Urine pH Ur Specific [place] Urine Protein Urine Glucose (UA) Urine Ketones Urine Blood Urine Nitrate Urine Bilirubin Urine Urobilinogen Ur Leukocyte Esterase Urine WBC (Auto) Urine RBC (Auto) Ur Squamous Epith Cells Urine Bacteria Random Vancomycin Digoxin Urine Opiates Screen Urine Methadone Screen Ur Barbiturates Screen Ur Phencyclidine Scrn Ur Amphetamines Screen U Benzodiazepines Scrn U Oth Cocaine Metabols U Cannabinoids Screen C. difficile Ag & Toxin Hep Bs Antigen Hep Bs Antibody Hep B Core IgM Ab Hepatitis C Antibody Blood Type Antibody Screen 04/02/18 04/02/18 04/02/18 20:50 21:16 21:16 WBC RBC Hgb Hct MCV MCH MCHC RDW Plt Count MPV Neut % (Auto) Lymph % (Auto) [place] % (Auto) Eos % (Auto) Baso % (Auto) Neut # (Auto) Lymph # (Auto) [place] # (Auto) Eos # (Auto) Baso # (Auto) Neutrophils % (Manual) Band Neutrophils % Lymphocytes % (Manual) Monocytes % (Manual) Metamyelocytes % Myelocytes % Toxic Granulation Platelet Estimate Large Platelets Giant Platelets RBC Morphology Polychromasia Hypochromasia (manual) Poikilocytosis (manual Anisocytosis (manual) Microcytosis (manual) Macrocytosis (manual) [place] Cells Smear Path Review PT INR APTT Puncture Site pCO2 pO2 HCO3 ABG pH ABG Total CO2 ABG O2 Saturation ABG Base Excess [place] Test ABG Potassium VBG pH VBG pCO2 VBG HCO3 VBG Total CO2 VBG O2 Sat (Calc) VBG Base Excess VBG Potassium A-a O2 Difference Respiratory Index Sodium 141 Chloride 111 H Glucose Lactate Liter Flow FiO2 Inspiratory BiPAP Expiratory BiPAP Crit Value Called To Crit Value Called By Crit Value Read Back Blood Gas Notified Time Potassium 4.1 Carbon Dioxide 11 L* D Anion Gap 23 H BUN 116 H* D Creatinine 4.7 H Est GFR ( Amer) 15 Est GFR (Non-Af Amer) 12 POC Glucose (mg/dL) Random Glucose 126 H Hemoglobin A1c Lactic Acid 4.1 H* Calcium 9.3 Phosphorus 8.1 H Magnesium 1.9 Total Bilirubin AST ALT Alkaline Phosphatase Total Creatine Kinase CK-MB (Mass) Troponin I NT-Pro-B Natriuret Pep Total Protein Albumin Globulin Albumin/Globulin Ratio Triglycerides Cholesterol LDL Cholesterol Direct HDL Cholesterol Procalcitonin TSH 3rd Generation Arterial Blood Potassium Venous Blood Potassium Urine Color Urine Clarity Urine pH Ur Specific [place] Urine Protein Urine Glucose (UA) Urine Ketones Urine Blood Urine Nitrate Urine Bilirubin Urine Urobilinogen Ur Leukocyte Esterase Urine WBC (Auto) Urine RBC (Auto) Ur Squamous Epith Cells Urine Bacteria Random Vancomycin Digoxin < 0.4 L Urine Opiates Screen Urine Methadone Screen Ur Barbiturates Screen Ur Phencyclidine Scrn Ur Amphetamines Screen U Benzodiazepines Scrn U Oth Cocaine Metabols U Cannabinoids Screen C. difficile Ag & Toxin Hep Bs Antigen Hep Bs Antibody Hep B Core IgM Ab Hepatitis C Antibody Blood Type Antibody Screen 04/02/18 04/02/18 04/02/18 22:30 22:42 23:04 WBC 22.6 H D RBC 3.73 L Hgb 11.5 L Hct 34.3 L MCV 92.0 D MCH 30.9 MCHC 33.6 RDW 14.6 H Plt Count 312 D MPV 8.2 Neut % (Auto) 97.6 H Lymph % (Auto) 0.8 L [place] % (Auto) 1.5 Eos % (Auto) 0.0 Baso % (Auto) 0.1 Neut # (Auto) 22.1 H Lymph # (Auto) 0.2 L [place] # (Auto) 0.3 Eos # (Auto) 0.0 Baso # (Auto) 0.0 Neutrophils % (Manual) 86 H Band Neutrophils % 12 H* Lymphocytes % (Manual) TEST NOT PERFORMED Monocytes % (Manual) 2 Metamyelocytes % Myelocytes % Toxic Granulation Present Platelet Estimate Normal Large Platelets Present Giant Platelets Present RBC Morphology Polychromasia Slight Hypochromasia (manual) Slight Poikilocytosis (manual Slight Anisocytosis (manual) Slight Microcytosis (manual) Slight Macrocytosis (manual) Slight [place] Cells Slight Smear Path Review PT INR APTT Puncture Site Lra pCO2 31 L pO2 20 L* HCO3 15.3 L ABG pH 7.30 L ABG Total CO2 16.3 L ABG O2 Saturation 40.2 L ABG Base Excess -9.9 L [place] Test Na ABG Potassium 3.3 L VBG pH VBG pCO2 VBG HCO3 VBG Total CO2 VBG O2 Sat (Calc) VBG Base Excess VBG Potassium A-a O2 Difference 298.0 Respiratory Index 14.9 Sodium 140.0 Chloride 107.0 Glucose 158 H Lactate 5.8 H* Liter Flow FiO2 50.0 Inspiratory BiPAP 20 Expiratory BiPAP 10 Crit Value Called To Francisco Javier lee Crit Value Called By Ghazala Crit Value Read Back Y Blood Gas Notified Time 5047 Potassium Carbon Dioxide Anion Gap BUN Creatinine Est GFR ( Amer) Est GFR (Non-Af Amer) POC Glucose (mg/dL) Random Glucose Hemoglobin A1c Lactic Acid Calcium Phosphorus Magnesium Total Bilirubin AST ALT Alkaline Phosphatase Total Creatine Kinase CK-MB (Mass) Troponin I NT-Pro-B Natriuret Pep Total Protein Albumin Globulin Albumin/Globulin Ratio Triglycerides Cholesterol LDL Cholesterol Direct HDL Cholesterol Procalcitonin TSH 3rd Generation Arterial Blood Potassium 3.3 L Venous Blood Potassium Urine Color Urine Clarity Urine pH Ur Specific [place] Urine Protein Urine Glucose (UA) Urine Ketones Urine Blood Urine Nitrate Urine Bilirubin Urine Urobilinogen Ur Leukocyte Esterase Urine WBC (Auto) Urine RBC (Auto) Ur Squamous Epith Cells Urine Bacteria Random Vancomycin Digoxin Urine Opiates Screen Urine Methadone Screen Ur Barbiturates Screen Ur Phencyclidine Scrn Ur Amphetamines Screen U Benzodiazepines Scrn U Oth Cocaine Metabols U Cannabinoids Screen C. difficile Ag & Toxin Hep Bs Antigen Hep Bs Antibody Hep B Core IgM Ab Hepatitis C Antibody Blood Type A POSITIVE Antibody Screen Negative 04/03/18 04/03/18 04/03/18 00:01 00:55 00:55 WBC RBC Hgb Hct MCV MCH MCHC RDW Plt Count MPV Neut % (Auto) Lymph % (Auto) [place] % (Auto) Eos % (Auto) Baso % (Auto) Neut # (Auto) Lymph # (Auto) [place] # (Auto) Eos # (Auto) Baso # (Auto) Neutrophils % (Manual) Band Neutrophils % Lymphocytes % (Manual) Monocytes % (Manual) Metamyelocytes % Myelocytes % Toxic Granulation Platelet Estimate Large Platelets Giant Platelets RBC Morphology Polychromasia Hypochromasia (manual) Poikilocytosis (manual Anisocytosis (manual) Microcytosis (manual) Macrocytosis (manual) [place] Cells Smear Path Review PT INR APTT Puncture Site pCO2 pO2 HCO3 ABG pH ABG Total CO2 ABG O2 Saturation ABG Base Excess [place] Test ABG Potassium VBG pH VBG pCO2 VBG HCO3 VBG Total CO2 VBG O2 Sat (Calc) VBG Base Excess VBG Potassium A-a O2 Difference Respiratory Index Sodium 140 Chloride 109 H Glucose Lactate Liter Flow FiO2 Inspiratory BiPAP Expiratory BiPAP Crit Value Called To Crit Value Called By Crit Value Read Back Blood Gas Notified Time Potassium 3.7 Carbon Dioxide 10 L* Anion Gap 24 H BUN 81 H Creatinine 3.1 H Est GFR ( Amer) 24 Est GFR (Non-Af Amer) 20 POC Glucose (mg/dL) 204 H Random Glucose 206 H Hemoglobin A1c Lactic Acid Calcium 7.4 L Phosphorus 5.0 H Magnesium 2.2 Total Bilirubin 1.4 H AST 33 ALT 24 Alkaline Phosphatase 86 Total Creatine Kinase CK-MB (Mass) Troponin I 0.0520 NT-Pro-B Natriuret Pep Total Protein 4.7 L Albumin 2.2 L D Globulin 2.4 Albumin/Globulin Ratio 0.9 L Triglycerides Cholesterol LDL Cholesterol Direct HDL Cholesterol Procalcitonin TSH 3rd Generation Arterial Blood Potassium Venous Blood Potassium Urine Color Urine Clarity Urine pH Ur Specific [place] Urine Protein Urine Glucose (UA) Urine Ketones Urine Blood Urine Nitrate Urine Bilirubin Urine Urobilinogen Ur Leukocyte Esterase Urine WBC (Auto) Urine RBC (Auto) Ur Squamous Epith Cells Urine Bacteria Random Vancomycin Digoxin Urine Opiates Screen Urine Methadone Screen Ur Barbiturates Screen Ur Phencyclidine Scrn Ur Amphetamines Screen U Benzodiazepines Scrn U Oth Cocaine Metabols U Cannabinoids Screen C. difficile Ag & Toxin Hep Bs Antigen Hep Bs Antibody Hep B Core IgM Ab Hepatitis C Antibody Blood Type Antibody Screen 04/03/18 04/03/18 04/03/18 00:57 02:34 05:44 WBC RBC Hgb Hct MCV MCH MCHC RDW Plt Count MPV Neut % (Auto) Lymph % (Auto) [place] % (Auto) Eos % (Auto) Baso % (Auto) Neut # (Auto) Lymph # (Auto) [place] # (Auto) Eos # (Auto) Baso # (Auto) Neutrophils % (Manual) Band Neutrophils % Lymphocytes % (Manual) Monocytes % (Manual) Metamyelocytes % Myelocytes % Toxic Granulation Platelet Estimate Large Platelets [place] Platelets RBC Morphology Polychromasia Hypochromasia (manual) Poikilocytosis (manual Anisocytosis (manual) Microcytosis (manual) Macrocytosis (manual) [place] Cells Smear Path Review PT INR APTT Puncture Site pCO2 pO2 HCO3 ABG pH ABG Total CO2 ABG O2 Saturation ABG Base Excess [place] Test ABG Potassium VBG pH VBG pCO2 VBG HCO3 VBG Total CO2 VBG O2 Sat (Calc) VBG Base Excess VBG Potassium A-a O2 Difference Respiratory Index Sodium Chloride Glucose Lactate Liter Flow FiO2 Inspiratory BiPAP Expiratory BiPAP Crit Value Called To Crit Value Called By Crit Value Read Back Blood Gas Notified Time Potassium Carbon Dioxide Anion Gap BUN Creatinine Est GFR ( Amer) Est GFR (Non-Af Amer) POC Glucose (mg/dL) 275 H Random Glucose Hemoglobin A1c Lactic Acid 5.6 H* Calcium Phosphorus Magnesium Total Bilirubin AST ALT Alkaline Phosphatase Total Creatine Kinase CK-MB (Mass) Troponin I NT-Pro-B Natriuret Pep Total Protein Albumin Globulin Albumin/Globulin Ratio Triglycerides Cholesterol LDL Cholesterol Direct HDL Cholesterol Procalcitonin TSH 3rd Generation Arterial Blood Potassium Venous Blood Potassium Urine Color Urine Clarity Urine pH Ur Specific [place] Urine Protein Urine Glucose (UA) Urine Ketones Urine Blood Urine Nitrate Urine Bilirubin Urine Urobilinogen Ur Leukocyte Esterase Urine WBC (Auto) Urine RBC (Auto) Ur Squamous Epith Cells Urine Bacteria Random Vancomycin Digoxin Urine Opiates Screen Negative Urine Methadone Screen Negative Ur Barbiturates Screen Negative Ur Phencyclidine Scrn Negative Ur Amphetamines Screen Negative U Benzodiazepines Scrn Negative U Oth Cocaine Metabols Negative U Cannabinoids Screen Negative C. difficile Ag & Toxin Hep Bs Antigen Hep Bs Antibody Hep B Core IgM Ab Hepatitis C Antibody Blood Type Antibody Screen 04/03/18 04/03/18 04/03/18 06:23 06:23 06:23 WBC RBC Hgb Hct MCV MCH MCHC RDW Plt Count MPV Neut % (Auto) Lymph % (Auto) [place] % (Auto) Eos % (Auto) Baso % (Auto) Neut # (Auto) Lymph # (Auto) [place] # (Auto) Eos # (Auto) Baso # (Auto) Neutrophils % (Manual) Band Neutrophils % Lymphocytes % (Manual) Monocytes % (Manual) Metamyelocytes % Myelocytes % Toxic Granulation Platelet Estimate Large Platelets Giant Platelets RBC Morphology Polychromasia Hypochromasia (manual) Poikilocytosis (manual Anisocytosis (manual) Microcytosis (manual) Macrocytosis (manual) [place] Cells Smear Path Review PT INR APTT Puncture Site pCO2 pO2 HCO3 ABG pH ABG Total CO2 ABG O2 Saturation ABG Base Excess [place] Test ABG Potassium VBG pH VBG pCO2 VBG HCO3 VBG Total CO2 VBG O2 Sat (Calc) VBG Base Excess VBG Potassium A-a O2 Difference Respiratory Index Sodium 139 Chloride 107 Glucose Lactate Liter Flow FiO2 Inspiratory BiPAP Expiratory BiPAP Crit Value Called To Crit Value Called By Crit Value Read Back Blood Gas Notified Time Potassium 4.3 Carbon Dioxide 15 L Anion Gap 21 H BUN 87 H Creatinine 3.2 H Est GFR ( Amer) 23 Est GFR (Non-Af Amer) 19 POC Glucose (mg/dL) Random Glucose 237 H Hemoglobin A1c Lactic Acid 4.6 H* Calcium 7.4 L Phosphorus Magnesium Total Bilirubin 1.6 H AST 39 ALT 30 Alkaline Phosphatase 64 Total Creatine Kinase CK-MB (Mass) Troponin I NT-Pro-B Natriuret Pep Total Protein 4.8 L Albumin 2.4 L Globulin 2.5 Albumin/Globulin Ratio 1.0 Triglycerides 163 H Cholesterol 83 LDL Cholesterol Direct 33 HDL Cholesterol 14 L Procalcitonin TSH 3rd Generation Arterial Blood Potassium Venous Blood Potassium Urine Color Urine Clarity Urine pH Ur Specific [place] Urine Protein Urine Glucose (UA) Urine Ketones Urine Blood Urine Nitrate Urine Bilirubin Urine Urobilinogen Ur Leukocyte Esterase Urine WBC (Auto) Urine RBC (Auto) Ur Squamous Epith Cells Urine Bacteria Random Vancomycin 6.6 Digoxin Urine Opiates Screen Urine Methadone Screen Ur Barbiturates Screen Ur Phencyclidine Scrn Ur Amphetamines Screen U Benzodiazepines Scrn U Oth Cocaine Metabols U Cannabinoids Screen C. difficile Ag & Toxin Hep Bs Antigen Hep Bs Antibody Hep B Core IgM Ab Hepatitis C Antibody Blood Type Antibody Screen 04/03/18 04/03/18 04/03/18 06:28 06:28 10:24 WBC 19.6 H RBC 3.58 L Hgb 11.3 L Hct 33.2 L MCV 92.7 MCH 31.5 H MCHC 34.0 RDW 14.7 H Plt Count 276 MPV 8.6 Neut % (Auto) 97.0 H Lymph % (Auto) 2.0 L [place] % (Auto) 1.0 Eos % (Auto) 0.0 Baso % (Auto) 0.0 Neut # (Auto) 19.4 H Lymph # (Auto) 0.3 L [place] # (Auto) 0.2 Eos # (Auto) 0.0 Baso # (Auto) 0.0 Neutrophils % (Manual) 86 H Band Neutrophils % 7 H Lymphocytes % (Manual) 2 L Monocytes % (Manual) 3 Metamyelocytes % Myelocytes % 2 H Toxic Granulation Platelet Estimate Normal Large Platelets Giant Platelets RBC Morphology Normal Polychromasia Hypochromasia (manual) Poikilocytosis (manual Anisocytosis (manual) Microcytosis (manual) Macrocytosis (manual) [place] Cells Smear Path Review PT INR APTT Puncture Site Lr pCO2 24 L pO2 101 H HCO3 20.3 L ABG pH 7.44 ABG Total CO2 17.0 L ABG O2 Saturation 97.5 ABG Base Excess -6.0 L [place] Test Pos ABG Potassium 3.4 L VBG pH VBG pCO2 VBG HCO3 VBG Total CO2 VBG O2 Sat (Calc) VBG Base Excess VBG Potassium A-a O2 Difference 83.0 Respiratory Index 0.8 Sodium 137.0 Chloride 107.0 Glucose 282 H Lactate 2.8 H Liter Flow FiO2 30.0 Inspiratory BiPAP 15 Expiratory BiPAP 5 Crit Value Called To Crit Value Called By Crit Value Read Back Blood Gas Notified Time Potassium Carbon Dioxide Anion Gap BUN Creatinine Est GFR ( Amer) Est GFR (Non-Af Amer) POC Glucose (mg/dL) Random Glucose Hemoglobin A1c 7.2 H Lactic Acid Calcium Phosphorus Magnesium Total Bilirubin AST ALT Alkaline Phosphatase Total Creatine Kinase CK-MB (Mass) Troponin I NT-Pro-B Natriuret Pep Total Protein Albumin Globulin Albumin/Globulin Ratio Triglycerides Cholesterol LDL Cholesterol Direct HDL Cholesterol Procalcitonin TSH 3rd Generation Arterial Blood Potassium 3.4 L Venous Blood Potassium Urine Color Urine Clarity Urine pH Ur Specific [place] Urine Protein Urine Glucose (UA) Urine Ketones Urine Blood Urine Nitrate Urine Bilirubin Urine Urobilinogen Ur Leukocyte Esterase Urine WBC (Auto) Urine RBC (Auto) Ur Squamous Epith Cells Urine Bacteria Random Vancomycin Digoxin Urine Opiates Screen Urine Methadone Screen Ur Barbiturates Screen Ur Phencyclidine Scrn Ur Amphetamines Screen U Benzodiazepines Scrn U Oth Cocaine Metabols U Cannabinoids Screen C. difficile Ag & Toxin Hep Bs Antigen Hep Bs Antibody Hep B Core IgM Ab Hepatitis C Antibody Blood Type Antibody Screen 04/03/18 12:37 WBC RBC Hgb Hct MCV MCH MCHC RDW Plt Count MPV Neut % (Auto) Lymph % (Auto) [place] % (Auto) Eos % (Auto) Baso % (Auto) Neut # (Auto) Lymph # (Auto) [place] # (Auto) Eos # (Auto) Baso # (Auto) Neutrophils % (Manual) Band Neutrophils % Lymphocytes % (Manual) Monocytes % (Manual) Metamyelocytes % Myelocytes % Toxic Granulation Platelet Estimate Large Platelets Giant Platelets RBC Morphology Polychromasia Hypochromasia (manual) Poikilocytosis (manual Anisocytosis (manual) Microcytosis (manual) Macrocytosis (manual) [place] Cells Smear Path Review PT INR APTT Puncture Site pCO2 pO2 HCO3 ABG pH ABG Total CO2 ABG O2 Saturation ABG Base Excess [place] Test ABG Potassium VBG pH VBG pCO2 VBG HCO3 VBG Total CO2 VBG O2 Sat (Calc) VBG Base Excess VBG Potassium A-a O2 Difference Respiratory Index Sodium Chloride Glucose Lactate Liter Flow FiO2 Inspiratory BiPAP Expiratory BiPAP Crit Value Called To Crit Value Called By Crit Value Read Back Blood Gas Notified Time Potassium Carbon Dioxide Anion Gap BUN Creatinine Est GFR ( Amer) Est GFR (Non-Af Amer) POC Glucose (mg/dL) 286 H Random Glucose Hemoglobin A1c Lactic Acid Calcium Phosphorus Magnesium Total Bilirubin AST ALT Alkaline Phosphatase Total Creatine Kinase CK-MB (Mass) Troponin I NT-Pro-B Natriuret Pep Total Protein Albumin Globulin Albumin/Globulin Ratio Triglycerides Cholesterol LDL Cholesterol Direct HDL Cholesterol Procalcitonin TSH 3rd Generation Arterial Blood Potassium Venous Blood Potassium Urine Color Urine Clarity Urine pH Ur Specific [place] Urine Protein Urine Glucose (UA) Urine Ketones Urine Blood Urine Nitrate Urine Bilirubin Urine Urobilinogen Ur Leukocyte Esterase Urine WBC (Auto) Urine RBC (Auto) Ur Squamous Epith Cells Urine Bacteria Random Vancomycin Digoxin Urine Opiates Screen Urine Methadone Screen Ur Barbiturates Screen Ur Phencyclidine Scrn Ur Amphetamines Screen U Benzodiazepines Scrn U Oth Cocaine Metabols U Cannabinoids Screen C. difficile Ag & Toxin Hep Bs Antigen Hep Bs Antibody Hep B Core IgM Ab Hepatitis C Antibody Blood Type Antibody Screen EKG/Cardiology Studies: Cardiology / EKG Studies 04/02/18 15:07 ELECTROCARDIOGRAM Stat Comment: Mode Of Transportation: BED Reason For Exam: chest pain Critical Care Progress Note - Nutrition Nutrition: Nutrition Category Date Time Status NPO Diet [DIET] Diets 04/03/18 Breakfast Active Attending/Attestation - Attestation I have personally seen and examined this patient.: Yes I have fully participated in the care of the patient.: Yes I have reviewed all pertinent clinical information: Yes Notes (Text): 04/03/18 13:50 CMM awake, responisve on BIPAP Neck- no jvd Lungs- bilat bs heart-irreg irreg Abd- bs+, soft, no localized tenderness Ext- bilat LE foul smelling leg wounds with erythema, tenderness Labs,x-rays reviewed A&P Septic Shock Gram Neg Bacteremia Bilat LE Cellulitis A-fib TERRENCE Hypoxic Resp Failure Chronic dCHF and sCHF Encephalopathy Arthritis cont meds cont Ab as per ID f/u cultures and sensitivities titrate off pressors rate control trial VM off BIPAP HD as per Nephrology IV fluid Wound care Maintain optimal lytes f/u labs Pall CAre eval as noted Prognosis Guarded Pt now DNR/DNI d/w housestaff critical care time spent with patient 35 min
[2018-04-03 08:20] LABS: HEPATITIS C ANTIBODY NEGATIVE (NEGATIVE)
--- NOTE | 2018-04-03 08:24 | CT ---
PROCEDURE: CT HEAD WITHOUT CONTRAST. HISTORY: altered mental status COMPARISON: None available. TECHNIQUE: Axial computed tomography images were obtained through the head/brain without intravenous contrast. Radiation dose: Total exam DLP = 1007 mGy-cm. This CT exam was performed using one or more of the following dose reduction techniques: Automated exposure control, adjustment of the mA and/or kV according to patient size, and/or use of iterative reconstruction technique. FINDINGS: HEMORRHAGE: No intracranial hemorrhage. BRAIN: Mild involutional changes. Scattered focal lucencies in the subcortical and periventricular white matter suggestive for chronic microvascular ischemic change. VENTRICLES: Unremarkable. No hydrocephalus. CALVARIUM: Unremarkable. PARANASAL SINUSES: 1 centimeter osteoma at the level of the right ethmoid air cells. MASTOID AIR CELLS: Unremarkable as visualized. No inflammatory changes. OTHER FINDINGS: None. IMPRESSION: Mild involutional changes. Chronic microvascular ischemic changes. If focal neurologic deficit persists, consider MRI. These findings were preliminarily reported at 6:08 p.m. 04/02/[address] Linda Hollingsworth from [facility].
[2018-04-03] MEDS: Vasopressin 40 UNITS in Dextrose 5% In Water 38 ML IV SCH ×2 (08:33→15:10)
--- NOTE | 2018-04-03 08:46 | CT ---
PROCEDURE: CT Chest, Abdomen and Pelvis without intravenous contrast HISTORY: Septic shock. Diarrhea. COMPARISON: CT abdomen/pelvis 08/10/2017 TECHNIQUE: Radiation dose: Total exam DLP = 1682.77 mGy-cm. This CT exam was performed using one or more of the following dose reduction techniques: Automated exposure control, adjustment of the mA and/or kV according to patient size, and/or use of iterative reconstruction technique. FINDINGS: CT CHEST WITHOUT CONTRAST: LUNGS: Clear. No nodule, mass or consolidation. MEDIASTINUM: Unremarkable. Normal caliber aorta and pulmonary arterial trunk. Mild cardiomegaly. . Small hiatal hernia. Bilateral gynecomastia. LYMPH NODES: Unremarkable. PLEURA: Unremarkable. No pneumothorax. No pleural fluid. BONES: Unremarkable. OTHER FINDINGS: None. CT ABDOMEN AND PELVIS: LIVER: Unremarkable. No gross lesion or ductal dilatation. GALLBLADDER AND BILE DUCTS: Rounded lucency within gallbladder lumen may reflect noncalcified stones such as your 8 stone. Correlate with ultrasound. No mural thickening or pericholecystic fluid. PANCREAS: Unremarkable. No gross lesion or ductal dilatation. SPLEEN: Unremarkable. ADRENALS: Stable 2.3 cm left adrenal mass measuring 33 Hounsfield units. Indeterminate by attenuation but nonetheless stable and by size criteria and stability not suspicious for malignancy. Likely adrenal adenoma. No right adrenal mass. KIDNEYS AND URETERS: No hydronephrosis. Left lower pole renal cortical cyst, 1.8 cm, measuring 2 Hounsfield units. No calculus. VASCULATURE: Unremarkable. No aortic aneurysm. BOWEL: Status post subtotal colectomy. Nonspecific mural thickening of loops of small intestine in the right lower abdomen. No evidence of bowel obstruction. APPENDIX: Colectomy PERITONEUM: Unremarkable. No free fluid. No free air. LYMPH NODES: Unremarkable. No enlarged lymph nodes. BLADDER: Decompressed around Wall catheter balloon. REPRODUCTIVE: Normal prostate BONES: No acute fracture. OTHER FINDINGS: None. IMPRESSION: No evidence of pneumonia or empyema. Possible cholelithiasis. Correlate with ultrasound examination. Status post subtotal colectomy. Mural thickening of small bowel loops in the right lower quadrant. Nonspecific finding. Small hiatal hernia. Bilateral gynecomastia. Stable left adrenal adenoma. Small left renal cortical cyst. Preliminary interpretation of this examination was reported by [facility] at 6:27 p.m. on 04/02/2018. There is concurrence of this report with the preliminary interpretation.
--- NOTE | 2018-04-03 09:06 | RAD ---
HISTORY: effusion COMPARISON: 04/02/2018 FINDINGS: LUNGS: No active pulmonary disease. PLEURA: No significant pleural effusion identified, no pneumothorax apparent. CARDIOVASCULAR: Normal. OSSEOUS STRUCTURES: No significant abnormalities. VISUALIZED UPPER ABDOMEN: Normal. OTHER FINDINGS: None. IMPRESSION: No active disease.
--- NOTE | 2018-04-03 09:09 | RAD ---
Chest x-ray single frontal view History: Chest pain. Comparison: 04/02/2018 Findings: Diffuse increased interstitial lung markings suggestive for edema versus infiltrate versus congestion. Cardiomegaly. Enlarged ectatic aorta. Degenerative changes in the spine and shoulders. Biapical pleural thickening with upper lobe granulomatous changes. Surgical clips in the upper abdomen. Gas distention of bowel. Impression: Diffuse increased interstitial lung markings suggestive for edema versus infiltrate versus congestion. Cardiomegaly. Enlarged ectatic aorta. Degenerative changes in the spine and shoulders. Biapical pleural thickening with upper lobe granulomatous changes. Surgical clips in the upper abdomen. Gas distention of bowel.
[2018-04-03 09:49] LABS: LYMPH # 0.3 K/uL (1.0-4.3); MONO # 0.2 K/uL (0.0-0.8); NEUT # 19.4 K/uL (1.8-7.0)
[2018-04-03 09:52] LABS: BANDS 7 % (0-2); LYMPHOCYTE 2 % (20-40); MONOCYTE 3 % (0-10); MYELOCYTE 2 % (0-0); NEUTROPHIL 86 % (50-75); PLATELET ESTIMATE NORMAL (NORMAL); TOTAL CELLS COUNTED 100
[2018-04-03] MEDS: Saccharomyces Boulardi 250 mg Cap PO SCH ×2 (10:00→21:38)
[2018-04-03] MEDS: Dakin's Topical 0.5%-Full Strength (480 ml) TOP ONE ×2 (10:00→18:00)
[2018-04-03] MEDS: Vancomycin 125 MG/5 ML SOLN (ORAL/RECTAL) PO SCH ×4 (10:00→21:57)
[2018-04-03 10:29] LABS: ABG ALLEN TEST POS; ARTERIAL BLOOD GAS HCO3 20.3 mmol/L (21-28); ARTERIAL BLOOD GAS O2 SAT 97.5 % (95-98); ARTERIAL BLOOD GAS PCO2 24 mm/Hg (35-45); ARTERIAL BLOOD GAS PH 7.44 (7.35-7.45); ARTERIAL BLOOD GAS PO2 101 mm/Hg (80-100)
--- NOTE | 2018-04-03 11:24 | CP.PCM.PN ---
Subjective - Date & Time of Evaluation Date of Evaluation: 04/03/18 Time of Evaluation: 11:20 - Subjective Subjective: Events noted On biPAP now; s/p dialysis last PM for hyperkalemia, metabolic acidosis Remains hypotensive- on levo, vaso IV Still on bicarb drip, UO increasing +GNR in wound culture- on IV ABs Has SVT- on IV amiodarone, IV verapamil Objective - Vital Signs/Intake and Output Vital Signs (last 24 hours): Temp Pulse Resp BP Pulse Ox 97.6 F 94 H 19 75/36 L 100 04/03/18 04:00 04/03/18 08:41 04/03/18 08:41 04/03/18 08:41 04/03/18 08:41 Intake and Output: 04/03/18 04/03/18 06:59 18:59 Intake Total 4141.4 1564.6 Output Total 815 350 Balance 3326.4 1214.6 - Medications Medications: Current Medications Aspirin (Ecotrin) 81 mg PO DAILY [facility] Last Admin: 04/03/18 11:18 Dose: Not Given Famotidine (Pepcid) 20 mg IVP DAILY [facility] Last Admin: 04/03/18 11:17 Dose: 20 mg Heparin Sodium (Porcine) (Heparin) 5,000 units SC Q8 KARAN Hydrocortisone Sodium Succinate (Solu-Cortef) 100 mg IV Q8H [facility] Last Admin: 04/03/18 05:52 Dose: 100 mg Vancomycin/Sodium Chloride (Vancomycin 1 Gm/Ns 200 Ml) 1 gm in 200 mls @ 166.7 mls/hr IVPB STAT KARAN PRN Reason: Protocol Stop: 04/07/18 17:01 Last Admin: 04/02/18 18:49 Dose: 166.7 mls/hr Meropenem 500 mg/ Sodium (Chloride) 100 mls @ 100 mls/hr IVPB Q8 KARAN PRN Reason: Protocol Last Admin: 04/03/18 05:11 Dose: 100 mls/hr Metronidazole (Flagyl) 500 mg in 100 mls @ 100 mls/hr IVPB Q8 KARAN PRN Reason: Protocol Last Admin: 04/03/18 05:12 Dose: 100 mls/hr Norepinephrine Bitartrate 8 mg (/ Dextrose) 258 mls @ 7.74 mls/hr IV .Q24H PRN ; Protocol; 4 MCG/MIN PRN Reason: TITRATE PER MD ORDER Last Admin: 04/03/18 08:41 Dose: 8 mcg/min, 15.48 mls/hr Amiodarone HCl 900 mg/ (Dextrose) 500 mls @ 16.66 mls/hr IV .Q24H KARAN; 0.5 MG/ MIN PRN Reason: Protocol Stop: 04/03/18 21:30 Last Admin: 04/03/18 03:30 Dose: 16.66 mls/hr Vasopressin 40 units/ Dextrose 40 mls @ 2.4 mls/hr IV .[id number] KARAN PRN Reason: 0.04 UNITS/MIN Last Admin: 04/03/18 08:33 Dose: 2.4 mls/hr Sodium Bicarbonate 150 meq/ (Dextrose) 1,000 mls @ 75 mls/hr IV .[id number] KARAN Last Admin: 04/02/18 23:30 Dose: 75 mls/hr Phenylephrine HCl 30 mg/ (Dextrose) 253 mls @ 10.12 mls/hr IV .Q24H PRN; Protocol; 20 MCG/MIN PRN Reason: TITRATE PER MD ORDER Last Admin: 04/02/18 23:28 Dose: 20 mcg/min, 10.12 mls/hr Verapamil HCl 40 mg/ Sodium (Chloride) 100 mls @ 18.75 mls/hr IV .Q5H20M PRN; Protocol; 7.5 MG/HR PRN Reason: FOR HR Last Admin: 04/03/18 05:24 Dose: 18.75 mls/hr Saccharomyces Boulardii (Florastor) 250 mg PO Q12 [facility] Last Admin: 04/03/18 10:00 Dose: Not Given Sodium Hypochlorite (Dakins Solution 0.5%) 0 ml TOP ONCE ONE Stop: 04/03/18 18:01 Vancomycin HCl (Vancocin (Oral Or Rectal Use)) 500 mg PO QID [facility] PRN Reason: Protocol Last Admin: 04/02/18 22:45 Dose: Not Given - Labs Labs: 04/03/18 06:28 04/03/18 06:23 PT 13.3 SECONDS (9.7-12.2) H 04/02/18 15:25 INR 1.2 04/02/18 15:25 APTT 21 SECONDS (21-34) 04/02/18 15:25 - Constitutional Appears: In Acute Distress, Chronically Ill - Head Exam Head Exam: ATRAUMATIC, NORMAL INSPECTION - Respiratory Exam Respiratory Exam: Clear to Ausculation Bilateral, Respiratory Distress - Cardiovascular Exam Cardiovascular Exam: Tachycardia - GI/Abdominal Exam GI & Abdominal Exam: Soft, Tenderness - Extremities Exam Extremities Exam: Calf Tenderness, Tenderness - Neurological Exam Neurological Exam: Altered - Skin Skin Exam: Erythema, Rash, Vesicles Assessment and Plan (1) TERRENCE (acute kidney injury) Status: Acute (2) Sepsis associated hypotension Status: Acute (3) Cellulitis of right leg Status: Acute (4) Chronic kidney disease, stage III (moderate) Status: Acute (5) Metabolic acidemia Status: Acute - Assessment and Plan (Free Text) Plan: Continue pressors for hypotension IV ABs for sepsis IV bicarb gtt Dialysis as needed for control of hyperkalemia, metabolic acidosis
--- NOTE | 2018-04-03 11:30 | CP.PCM.CON ---
History of Present Illness - History of Present Illness History of Present Illness: 72 year old male who was brought by ambulance because he fell out of his chair while at home. His Son stated he noticed his father feeling weak for the past 1 week - patient refused to come to hospital soon. . Yesterday patient's breathing became labored - son wanted to bring patient to hospital but patient refused. 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 [employer]; lives with son Duke Review of Systems - Review of Systems Systems not reviewed;Unavailable: Altered Mental Status All systems: reviewed and no additional remarkable complaints except - Constitutional Constitutional: As Per HPI - EENT Eyes: absent: As Per HPI, Blind Spots, Blurred Vision, Change in Vision, Decreased Night Vision, Diplopia, Discharge, Dry Eye, Exophthalmos, Floaters, Irritation, Itchy Eyes, Loss of Peripheral Vision, Pain, Photophobia, Requires Corrective Lenses, Sees Flashes, Spots in Vision, Tunnel Vision, Other Visual Disturbances, Loss of Vision, Other Ears: absent: As Per HPI, Decreased Hearing, Ear Discharge, Ear Pain, Tinnitus, Abnormal Hearing, Disequilibrium, Dizziness, Other Nose/Mouth/Throat: absent: As Per HPI, Epistaxis, Nasal Congestion, Nasal Discharge, Nasal Obstruction, Nasal Trauma, Nose Pain, Post Nasal Drip, Sinus Pain, Sinus Pressure, Bleeding Gums, Change in Voice, Dental Pain, Dry Mouth, Dysphagia, Halitosis, Hoarsness, Lip Swelling, Mouth Lesions, Mouth Pain, Odynophagia, Sore Throat, Throat Swelling, Tongue Swelling, Facial Pain, Neck Pain, Neck Mass, Other - Cardiovascular Cardiovascular: As Per HPI - Respiratory Respiratory: As Per HPI, Dyspnea - Gastrointestinal Gastrointestinal: absent: As Per HPI, Abdominal Pain, Belching, Bloating, Change in Bowel Habits, Change in Stool Character, Coffee Ground Emesis, Constipation, Cramping, Diarrhea, Dyspepsia, Dysphagia, Early Satiety, Excessive Flatus, Fecal Incontinence, Heartburn, Hematemesis, Hematochezia, Loose Stools, Melena, Nausea, Odynophagia, Temesmus, Vomiting, Other - Genitourinary Genitourinary: absent: As Per HPI, Change in Urinary Stream, Difficulty Urinating, Dysuria, Flank Pain, Hematuria, Pyuria, Nocturia, Urinary Incontinence, Urinary Frequency, Urinary Hesitance, Urinary Urgency, Voiding Freq/Small Amts, Freq UTI, Hx Renal/Bladder Calculi, Hx /Renal Surgery, Bladder Distension, Other - Musculoskeletal Musculoskeletal: absent: As Per HPI, Abnormal Gait, Arthralgias, Atrophy, Back Pain, Deformity, Joint Swelling, Limited Range of Motion, Loss of Height, Muscle Cramps, Muscle Weakness, Myalgias, Neck Pain, Numbness, Radiating Pain into Limb, Stiffness, Tingling, Other - Integumentary Integumentary: As Per HPI - Neurological Neurological: As Per HPI - Psychiatric Psychiatric: absent: As Per HPI, Abnormal Sleep Pattern, Anhedonia, Anxiety, Auditory Hallucinations, Behavioral Changes, Change in Appetite, Change in Libido, Confusion, Depression, Difficulty Concentrating, Hallucinations, Homicidal Ideation, Hopelessness, Irritability, Memory Loss, Mood Swings, Panic Attacks, Paranoia, Suicidal Ideation, Visual Hallucinations, Tactile Hallucinations, Other - Endocrine Endocrine: absent: As Per HPI, Change in Body Appearance, Change in Libido, Cold Intolorance, Deepening of Voice, Excessive Sweating, Fatigue, Flushing, Heat Intolorance, Increase in Ring/Shoe/Hat Size, Palpitations, Polydipsia, Polyphagia, Polyuria, Other - Hematologic/Lymphatic Hematologic: absent: As Per HPI, Easy Bleeding, Easy Bruising, Lymphadenopathy, Other Past Patient History - Infectious Disease Hx of Infectious Diseases: None - Past Medical History & Family History Past Medical History?: Yes - Past Social History Smoking Status: Former Smoker - CARDIAC Hx Peripheral Edema: Yes - PULMONARY Hx Respiratory Disorders: No - NEUROLOGICAL Hx Neurological Disorder: No - HEENT Hx HEENT Problems: Yes Hx Glaucoma: Yes - RENAL Hx Chronic Kidney Disease: Yes Hx Kidney Stones: Yes - ENDOCRINE/METABOLIC Hx Endocrine Disorders: No - HEMATOLOGICAL/ONCOLOGICAL Hx Blood Disorders: Yes Hx Cancer: Yes (Colon) - INTEGUMENTARY Hx Dermatological Problems: No - MUSCULOSKELETAL/RHEUMATOLOGICAL Hx Arthritis: Yes (FINGERS) Hx Fractures: Yes (left leg as toddler) - GASTROINTESTINAL Hx Gastrointestinal Disorders: Yes Other/Comment: Colon Ca - GENITOURINARY/GYNECOLOGICAL Hx Genitourinary Disorders: Yes Hx Prostate Problems: Yes - PSYCHIATRIC Hx Substance Use: No - SURGICAL HISTORY Hx Surgeries: Yes Other/Comment: Cysto, stent insertion 09/29/15, Colon resction 2010. [facility]/LITHOTRIPSY - ANESTHESIA Hx Anesthesia: Yes Hx Anesthesia Reactions: No Hx Malignant Hyperthermia: No Meds Allergies/Adverse Reactions: Allergies Allergy/AdvReac Type Severity Reaction Status Date / Time cefdinir [From Omnicef] Allergy Verified 10/02/17 11:52 - Medications Medications: Current Medications Aspirin (Ecotrin) 81 mg PO DAILY [facility] Last Admin: 04/03/18 11:18 Dose: Not Given Famotidine (Pepcid) 20 mg IVP DAILY [facility] Last Admin: 04/03/18 11:17 Dose: 20 mg Heparin Sodium (Porcine) (Heparin) 5,000 units SC Q8 [facility] Hydrocortisone Sodium Succinate (Solu-Cortef) 100 mg IV Q8H [facility] Last Admin: 04/03/18 05:52 Dose: 100 mg Vancomycin/Sodium Chloride (Vancomycin 1 Gm/Ns 200 Ml) 1 gm in 200 mls @ 166.7 mls/hr IVPB STAT KARAN PRN Reason: Protocol Stop: 04/07/18 17:01 Last Admin: 04/02/18 18:49 Dose: 166.7 mls/hr Meropenem 500 mg/ Sodium (Chloride) 100 mls @ 100 mls/hr IVPB Q8 KARAN PRN Reason: Protocol Last Admin: 04/03/18 05:11 Dose: 100 mls/hr Metronidazole (Flagyl) 500 mg in 100 mls @ 100 mls/hr IVPB Q8 KARAN PRN Reason: Protocol Last Admin: 04/03/18 05:12 Dose: 100 mls/hr Norepinephrine Bitartrate 8 mg (/ Dextrose) 258 mls @ 7.74 mls/hr IV .Q24H PRN ; Protocol; 4 MCG/MIN PRN Reason: TITRATE PER MD ORDER Last Titration: 04/03/18 11:00 Dose: 6 mcg/min, 11.61 mls/hr Amiodarone HCl 900 mg/ (Dextrose) 500 mls @ 16.66 mls/hr IV .Q24H KARAN; 0.5 MG/ MIN PRN Reason: Protocol Stop: 04/03/18 21:30 Last Admin: 04/03/18 03:30 Dose: 16.66 mls/hr Vasopressin 40 units/ Dextrose 40 mls @ 2.4 mls/hr IV .[id number] KARAN PRN Reason: 0.04 UNITS/MIN Last Admin: 04/03/18 08:33 Dose: 2.4 mls/hr Sodium Bicarbonate 150 meq/ (Dextrose) 1,000 mls @ 75 mls/hr IV .[id number] KARAN Last Admin: 04/02/18 23:30 Dose: 75 mls/hr Phenylephrine HCl 30 mg/ (Dextrose) 253 mls @ 10.12 mls/hr IV .Q24H PRN; Protocol; 20 MCG/MIN PRN Reason: TITRATE PER MD ORDER Last Admin: 04/02/18 23:28 Dose: 20 mcg/min, 10.12 mls/hr Verapamil HCl 40 mg/ Sodium (Chloride) 100 mls @ 18.75 mls/hr IV .Q5H20M PRN; Protocol; 7.5 MG/HR PRN Reason: FOR HR Last Admin: 04/03/18 05:24 Dose: 18.75 mls/hr Saccharomyces Boulardii (Florastor) 250 mg PO Q12 KARAN Last Admin: 04/03/18 10:00 Dose: Not Given Sodium Hypochlorite (Dakins Solution 0.5%) 0 ml TOP ONCE ONE Stop: 04/03/18 18:01 Vancomycin HCl (Vancocin (Oral Or Rectal Use)) 500 mg PO QID KARAN PRN Reason: Protocol Last Admin: 04/02/18 22:45 Dose: Not Given Physical Exam - Constitutional Appears: Confused, Chronically Ill - Head Exam Head Exam: NORMOCEPHALIC - Eye Exam Eye Exam: absent: Scleral icterus - ENT Exam ENT Exam: Mucous Membranes Dry, Normal External Ear Exam - Neck Exam Neck exam: Negative for: Lymphadenopathy - Respiratory Exam Respiratory Exam: Decreased Breath Sounds - Cardiovascular Exam Cardiovascular Exam: Tachycardia, Irregular Rhythm, +S1, +S2 - GI/Abdominal Exam GI & Abdominal Exam: Diminished Bowel Sounds, Distended, Soft - Rectal Exam Rectal Exam: Deferred - Exam Exam: NORMAL INSPECTION - Extremities Exam Extremities exam: Positive for: pedal edema, tenderness. Negative for: calf tenderness, full ROM, joint swelling, pedal pulses present - Back Exam Back exam: absent: CVA tenderness (L), CVA tenderness (R), paraspinal tenderness - Neurological Exam Neurological exam: Alert, Altered, CN II-XII Intact - Psychiatric Exam Psychiatric exam: Depressed - Skin Skin Exam: Dry Results - Vital Signs Recent Vital Signs: Last Vital Signs Temp 97.6 F 04/03/18 04:00 Pulse 113 H 04/03/18 11:19 Resp 22 04/03/18 11:19 BP 121/28 L 04/03/18 11:19 Pulse Ox 99 04/03/18 11:19 - Labs Result Diagrams: 04/03/18 06:28 04/03/18 06:23 Labs: Laboratory Results - last 24 hr 04/02/18 04/02/18 04/02/18 15:25 15:25 15:30 WBC 52.3 H* D RBC 4.32 L Hgb 13.2 D Hct 41.2 MCV 95.5 H D MCH 30.6 MCHC 32.0 L RDW 15.6 H Plt Count 516 H D MPV 8.7 Neut % (Auto) 96.4 H Lymph % (Auto) 0.7 L Kings % (Auto) 2.3 Eos % (Auto) 0.1 Baso % (Auto) 0.5 Neut # (Auto) 50.4 H Lymph # (Auto) 0.4 L Kings # (Auto) 1.2 H Eos # (Auto) 0.0 Baso # (Auto) 0.3 H Neutrophils % (Manual) 90 H Band Neutrophils % 2 Lymphocytes % (Manual) 1 L Monocytes % (Manual) 4 Metamyelocytes % 1 H Myelocytes % 2 H Toxic Granulation Present Platelet Estimate Increased H Large Platelets Present Giant Platelets RBC Morphology Polychromasia Hypochromasia (manual) Poikilocytosis (manual Slight Anisocytosis (manual) Slight Microcytosis (manual) Slight Macrocytosis (manual) Slight Shaan Cells PT 13.3 H INR 1.2 APTT 21 Puncture Site pCO2 pO2 60 H HCO3 ABG pH ABG Total CO2 ABG O2 Saturation ABG Base Excess [place] Test ABG Potassium VBG pH 6.87 L* VBG pCO2 17 L* VBG HCO3 1.2 VBG Total CO2 3.6 L VBG O2 Sat (Calc) 90.1 H VBG Base Excess -29.2 L VBG Potassium 11.7 H* A-a O2 Difference Respiratory Index Sodium 123.0 L Chloride 99.0 Glucose 202 H Lactate 3.3 H Liter Flow FiO2 Inspiratory BiPAP Expiratory BiPAP Crit Value Called To 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 manager case management Crit Value Called By Dennis raza md Crit Value Read Back Y Blood Gas Notified Time 1535 Potassium Carbon Dioxide Anion Gap BUN Creatinine Est GFR ( Amer) Est GFR (Non-Af Amer) POC Glucose (mg/dL) Random Glucose Hemoglobin A1c Lactic Acid Calcium Phosphorus Magnesium Total Bilirubin AST ALT Alkaline Phosphatase Total Creatine Kinase CK-MB (Mass) Troponin I NT-Pro-B Natriuret Pep Total Protein Albumin Globulin Albumin/Globulin Ratio Triglycerides Cholesterol LDL Cholesterol Direct HDL Cholesterol Procalcitonin TSH 3rd Generation Arterial Blood Potassium Venous Blood Potassium 11.7 H* Urine Color Urine Clarity Urine pH Ur Specific Novice Urine Protein Urine Glucose (UA) Urine Ketones Urine Blood Urine Nitrate Urine Bilirubin Urine Urobilinogen Ur Leukocyte Esterase Urine WBC (Auto) Urine RBC (Auto) Ur Squamous Epith Cells Urine Bacteria Random Vancomycin Digoxin Urine Opiates Screen Urine Methadone Screen Ur Barbiturates Screen Ur Phencyclidine Scrn Ur Amphetamines Screen U Benzodiazepines Scrn U Oth Cocaine Metabols U Cannabinoids Screen C. difficile Ag & Toxin Hep Bs Antigen Hep Bs Antibody Hep B Core IgM Ab Hepatitis C Antibody Blood Type Antibody Screen 04/02/18 04/02/18 04/02/18 16:03 16:10 18:08 WBC RBC Hgb Hct MCV MCH MCHC RDW Plt Count MPV Neut % (Auto) Lymph % (Auto) Kings % (Auto) Eos % (Auto) Baso % (Auto) Neut # (Auto) Lymph # (Auto) Kings # (Auto) Eos # (Auto) Baso # (Auto) Neutrophils % (Manual) Band Neutrophils % Lymphocytes % (Manual) Monocytes % (Manual) Metamyelocytes % Myelocytes % Toxic Granulation Platelet Estimate Large Platelets Giant Platelets RBC Morphology Polychromasia Hypochromasia (manual) Poikilocytosis (manual Anisocytosis (manual) Microcytosis (manual) Macrocytosis (manual) Shaan Cells PT INR APTT Puncture Site pCO2 pO2 HCO3 ABG pH ABG Total CO2 ABG O2 Saturation ABG Base Excess [place] Test ABG Potassium VBG pH VBG pCO2 VBG HCO3 VBG Total CO2 VBG O2 Sat (Calc) VBG Base Excess VBG Potassium A-a O2 Difference Respiratory Index Sodium 131 L Chloride 109 H Glucose Lactate Liter Flow FiO2 Inspiratory BiPAP Expiratory BiPAP Crit Value Called To Crit Value Called By Crit Value Read Back Blood Gas Notified Time Potassium 7.1 H* D Carbon Dioxide < 5 L* D Anion Gap 24 H BUN 150 H* D Creatinine 6.2 H Est GFR ( Amer) 11 Est GFR (Non-Af Amer) 9 POC Glucose (mg/dL) Random Glucose 176 H Hemoglobin A1c Lactic Acid Calcium 7.0 L Phosphorus 12.4 H Magnesium 2.4 H Total Bilirubin 0.8 AST 25 ALT 17 L Alkaline Phosphatase 95 Total Creatine Kinase 476 H CK-MB (Mass) 12.1 H Troponin I < 0.0120 < 0.0120 NT-Pro-B Natriuret Pep 5000 H 5290 H Total Protein 5.9 L Albumin 2.9 L Globulin 3.1 Albumin/Globulin Ratio 0.9 L Triglycerides Cholesterol LDL Cholesterol Direct HDL Cholesterol Procalcitonin TSH 3rd Generation 2.67 Arterial Blood Potassium Venous Blood Potassium Urine Color Yellow Urine Clarity Hazy Urine pH 5.0 Ur Specific Novice 1.014 Urine Protein Negative Urine Glucose (UA) Normal Urine Ketones Negative Urine Blood 1+ H Urine Nitrate Negative Urine Bilirubin Negative Urine Urobilinogen Normal Ur Leukocyte Esterase 1+ H Urine WBC (Auto) 7 H Urine RBC (Auto) 7 H Ur Squamous Epith Cells 1 Urine Bacteria Rare Random Vancomycin Digoxin Urine Opiates Screen Urine Methadone Screen Ur Barbiturates Screen Ur Phencyclidine Scrn Ur Amphetamines Screen U Benzodiazepines Scrn U Oth Cocaine Metabols U Cannabinoids Screen C. difficile Ag & Toxin Hep Bs Antigen Hep Bs Antibody Hep B Core IgM Ab Hepatitis C Antibody Blood Type Antibody Screen 04/02/18 04/02/18 04/02/18 18:08 18:36 18:51 WBC RBC Hgb Hct MCV MCH MCHC RDW Plt Count MPV Neut % (Auto) Lymph % (Auto) Kings % (Auto) Eos % (Auto) Baso % (Auto) Neut # (Auto) Lymph # (Auto) Kings # (Auto) Eos # (Auto) Baso # (Auto) Neutrophils % (Manual) Band Neutrophils % Lymphocytes % (Manual) Monocytes % (Manual) Metamyelocytes % Myelocytes % Toxic Granulation Platelet Estimate Large Platelets Giant Platelets RBC Morphology Polychromasia Hypochromasia (manual) Poikilocytosis (manual Anisocytosis (manual) Microcytosis (manual) Macrocytosis (manual) Shaan Cells PT INR APTT Puncture Site pCO2 pO2 44 HCO3 ABG pH ABG Total CO2 ABG O2 Saturation ABG Base Excess [place] Test ABG Potassium VBG pH 7.07 L* VBG pCO2 15 L* VBG HCO3 5.3 VBG Total CO2 4.8 L VBG O2 Sat (Calc) 82.4 H VBG Base Excess -23.8 L VBG Potassium 4.1 A-a O2 Difference Respiratory Index Sodium 135.0 Chloride 114.0 H Glucose 108 Lactate 2.3 H Liter Flow FiO2 Inspiratory BiPAP Expiratory BiPAP Crit Value Called To Becka auricular acupuncturist Crit Value Called By Ghazala Crit Value Read Back Y Blood Gas Notified Time 1840 Potassium Carbon Dioxide Anion Gap BUN Creatinine Est GFR ( Amer) Est GFR (Non-Af Amer) POC Glucose (mg/dL) Random Glucose Hemoglobin A1c Lactic Acid 3.1 H Calcium Phosphorus Magnesium Total Bilirubin AST ALT Alkaline Phosphatase Total Creatine Kinase CK-MB (Mass) Troponin I NT-Pro-B Natriuret Pep Total Protein Albumin Globulin Albumin/Globulin Ratio Triglycerides Cholesterol LDL Cholesterol Direct HDL Cholesterol Procalcitonin 6.48 H TSH 3rd Generation Arterial Blood Potassium Venous Blood Potassium 4.1 Urine Color Urine Clarity Urine pH Ur Specific Novice Urine Protein Urine Glucose (UA) Urine Ketones Urine Blood Urine Nitrate Urine Bilirubin Urine Urobilinogen Ur Leukocyte Esterase Urine WBC (Auto) Urine RBC (Auto) Ur Squamous Epith Cells Urine Bacteria Random Vancomycin Digoxin Urine Opiates Screen Urine Methadone Screen Ur Barbiturates Screen Ur Phencyclidine Scrn Ur Amphetamines Screen U Benzodiazepines Scrn U Oth Cocaine Metabols U Cannabinoids Screen C. difficile Ag & Toxin Hep Bs Antigen Hep Bs Antibody Hep B Core IgM Ab Hepatitis C Antibody Blood Type Antibody Screen 04/02/18 04/02/18 04/02/18 19:27 19:27 19:46 WBC RBC Hgb Hct MCV MCH MCHC RDW Plt Count MPV Neut % (Auto) Lymph % (Auto) Kings % (Auto) Eos % (Auto) Baso % (Auto) Neut # (Auto) Lymph # (Auto) Kings # (Auto) Eos # (Auto) Baso # (Auto) Neutrophils % (Manual) Band Neutrophils % Lymphocytes % (Manual) Monocytes % (Manual) Metamyelocytes % Myelocytes % Toxic Granulation Platelet Estimate Large Platelets Giant Platelets RBC Morphology Polychromasia Hypochromasia (manual) Poikilocytosis (manual Anisocytosis (manual) Microcytosis (manual) Macrocytosis (manual) Trevett Cells PT INR APTT Puncture Site pCO2 pO2 HCO3 ABG pH ABG Total CO2 ABG O2 Saturation ABG Base Excess [place] Test ABG Potassium VBG pH VBG pCO2 VBG HCO3 VBG Total CO2 VBG O2 Sat (Calc) VBG Base Excess VBG Potassium A-a O2 Difference Respiratory Index Sodium Chloride Glucose Lactate Liter Flow FiO2 Inspiratory BiPAP Expiratory BiPAP Crit Value Called To Crit Value Called By Crit Value Read Back Blood Gas Notified Time Potassium Carbon Dioxide Anion Gap BUN Creatinine Est GFR ( Amer) Est GFR (Non-Af Amer) POC Glucose (mg/dL) Random Glucose Hemoglobin A1c Lactic Acid Calcium Phosphorus Magnesium Total Bilirubin AST ALT Alkaline Phosphatase Total Creatine Kinase CK-MB (Mass) Troponin I NT-Pro-B Natriuret Pep Total Protein Albumin Globulin Albumin/Globulin Ratio Triglycerides Cholesterol LDL Cholesterol Direct HDL Cholesterol Procalcitonin TSH 3rd Generation Arterial Blood Potassium Venous Blood Potassium Urine Color Urine Clarity Urine pH Ur Specific Novice Urine Protein Urine Glucose (UA) Urine Ketones Urine Blood Urine Nitrate Urine Bilirubin Urine Urobilinogen Ur Leukocyte Esterase Urine WBC (Auto) Urine RBC (Auto) Ur Squamous Epith Cells Urine Bacteria Random Vancomycin Digoxin Urine Opiates Screen Urine Methadone Screen Ur Barbiturates Screen Ur Phencyclidine Scrn Ur Amphetamines Screen U Benzodiazepines Scrn U Oth Cocaine Metabols U Cannabinoids Screen C. difficile Ag & Toxin Negative Hep Bs Antigen Negative Hep Bs Antibody Negative Hep B Core IgM Ab Negative Hepatitis C Antibody Negative Blood Type Antibody Screen 04/02/18 04/02/18 04/02/18 20:24 20:40 20:49 WBC RBC Hgb Hct MCV MCH MCHC RDW Plt Count MPV Neut % (Auto) Lymph % (Auto) Kings % (Auto) Eos % (Auto) Baso % (Auto) Neut # (Auto) Lymph # (Auto) Kings # (Auto) Eos # (Auto) Baso # (Auto) Neutrophils % (Manual) Band Neutrophils % Lymphocytes % (Manual) Monocytes % (Manual) Metamyelocytes % Myelocytes % Toxic Granulation Platelet Estimate Large Platelets Giant Platelets RBC Morphology Polychromasia Hypochromasia (manual) Poikilocytosis (manual Anisocytosis (manual) Microcytosis (manual) Macrocytosis (manual) Trevett Cells PT INR APTT Puncture Site Rra pCO2 16 L* pO2 149 H 38 HCO3 12.3 L ABG pH 7.29 L ABG Total CO2 8.2 L ABG O2 Saturation 98.0 ABG Base Excess -16.3 L [place] Test Na ABG Potassium 2.3 L* VBG pH 7.24 L VBG pCO2 27 L VBG HCO3 12.9 VBG Total CO2 12.4 L VBG O2 Sat (Calc) 76.8 H VBG Base Excess -14.2 L VBG Potassium 4.0 A-a O2 Difference 45.0 Respiratory Index 0.3 Sodium 146.0 137.0 Chloride 124.0 H 108.0 H Glucose 100 125 H Lactate 2.5 H 4.4 H* Liter Flow 3.0 FiO2 30.0 Inspiratory BiPAP Expiratory BiPAP Crit Value Called To Ranjeet Pollack md Crit Value Called By Ghazala Vivar Crit Value Read Back Y Y Blood Gas Notified Time 2042 2052 Potassium Carbon Dioxide Anion Gap BUN Creatinine Est GFR ( Amer) Est GFR (Non-Af Amer) POC Glucose (mg/dL) 137 H Random Glucose Hemoglobin A1c Lactic Acid Calcium Phosphorus Magnesium Total Bilirubin AST ALT Alkaline Phosphatase Total Creatine Kinase CK-MB (Mass) Troponin I NT-Pro-B Natriuret Pep Total Protein Albumin Globulin Albumin/Globulin Ratio Triglycerides Cholesterol LDL Cholesterol Direct HDL Cholesterol Procalcitonin TSH 3rd Generation Arterial Blood Potassium 2.3 L* Venous Blood Potassium 4.0 Urine Color Urine Clarity Urine pH Ur Specific Novice Urine Protein Urine Glucose (UA) Urine Ketones Urine Blood Urine Nitrate Urine Bilirubin Urine Urobilinogen Ur Leukocyte Esterase Urine WBC (Auto) Urine RBC (Auto) Ur Squamous Epith Cells Urine Bacteria Random Vancomycin Digoxin Urine Opiates Screen Urine Methadone Screen Ur Barbiturates Screen Ur Phencyclidine Scrn Ur Amphetamines Screen U Benzodiazepines Scrn U Oth Cocaine Metabols U Cannabinoids Screen C. difficile Ag & Toxin Hep Bs Antigen Hep Bs Antibody Hep B Core IgM Ab Hepatitis C Antibody Blood Type Antibody Screen 04/02/18 04/02/18 04/02/18 20:50 21:16 21:16 WBC RBC Hgb Hct MCV MCH MCHC RDW Plt Count MPV Neut % (Auto) Lymph % (Auto) Kings % (Auto) Eos % (Auto) Baso % (Auto) Neut # (Auto) Lymph # (Auto) Kings # (Auto) Eos # (Auto) Baso # (Auto) Neutrophils % (Manual) Band Neutrophils % Lymphocytes % (Manual) Monocytes % (Manual) Metamyelocytes % Myelocytes % Toxic Granulation Platelet Estimate Large Platelets Giant Platelets RBC Morphology Polychromasia Hypochromasia (manual) Poikilocytosis (manual Anisocytosis (manual) Microcytosis (manual) Macrocytosis (manual) Shaan Cells PT INR APTT Puncture Site pCO2 pO2 HCO3 ABG pH ABG Total CO2 ABG O2 Saturation ABG Base Excess [place] Test ABG Potassium VBG pH VBG pCO2 VBG HCO3 VBG Total CO2 VBG O2 Sat (Calc) VBG Base Excess VBG Potassium A-a O2 Difference Respiratory Index Sodium 141 Chloride 111 H Glucose Lactate Liter Flow FiO2 Inspiratory BiPAP Expiratory BiPAP Crit Value Called To Crit Value Called By Crit Value Read Back Blood Gas Notified Time Potassium 4.1 Carbon Dioxide 11 L* D Anion Gap 23 H BUN 116 H* D Creatinine 4.7 H Est GFR ( Amer) 15 Est GFR (Non-Af Amer) 12 POC Glucose (mg/dL) Random Glucose 126 H Hemoglobin A1c Lactic Acid 4.1 H* Calcium 9.3 Phosphorus 8.1 H Magnesium 1.9 Total Bilirubin AST ALT Alkaline Phosphatase Total Creatine Kinase CK-MB (Mass) Troponin I NT-Pro-B Natriuret Pep Total Protein Albumin Globulin Albumin/Globulin Ratio Triglycerides Cholesterol LDL Cholesterol Direct HDL Cholesterol Procalcitonin TSH 3rd Generation Arterial Blood Potassium Venous Blood Potassium Urine Color Urine Clarity Urine pH Ur Specific Novice Urine Protein Urine Glucose (UA) Urine Ketones Urine Blood Urine Nitrate Urine Bilirubin Urine Urobilinogen Ur Leukocyte Esterase Urine WBC (Auto) Urine RBC (Auto) Ur Squamous Epith Cells Urine Bacteria Random Vancomycin Digoxin < 0.4 L Urine Opiates Screen Urine Methadone Screen Ur Barbiturates Screen Ur Phencyclidine Scrn Ur Amphetamines Screen U Benzodiazepines Scrn U Oth Cocaine Metabols U Cannabinoids Screen C. difficile Ag & Toxin Hep Bs Antigen Hep Bs Antibody Hep B Core IgM Ab Hepatitis C Antibody Blood Type Antibody Screen 06/24/18 06/24/18 06/24/18 22:30 22:42 23:04 WBC 22.6 H D RBC 3.73 L Hgb 11.5 L Hct 34.3 L MCV 92.0 D MCH 30.9 MCHC 33.6 RDW 14.6 H Plt Count 312 D MPV 8.2 Neut % (Auto) 97.6 H Lymph % (Auto) 0.8 L Kings % (Auto) 1.5 Eos % (Auto) 0.0 Baso % (Auto) 0.1 Neut # (Auto) 22.1 H Lymph # (Auto) 0.2 L Kings # (Auto) 0.3 Eos # (Auto) 0.0 Baso # (Auto) 0.0 Neutrophils % (Manual) 86 H Band Neutrophils % 12 H* Lymphocytes % (Manual) TEST NOT PERFORMED Monocytes % (Manual) 2 Metamyelocytes % Myelocytes % Toxic Granulation Present Platelet Estimate Normal Large Platelets Present Giant Platelets Present RBC Morphology Polychromasia Slight Hypochromasia (manual) Slight Poikilocytosis (manual Slight Anisocytosis (manual) Slight Microcytosis (manual) Slight Macrocytosis (manual) Slight Shaan Cells Slight PT INR APTT Puncture Site Lra pCO2 31 L pO2 20 L* HCO3 15.3 L ABG pH 7.30 L ABG Total CO2 16.3 L ABG O2 Saturation 40.2 L ABG Base Excess -9.9 L [place] Test Na ABG Potassium 3.3 L VBG pH VBG pCO2 VBG HCO3 VBG Total CO2 VBG O2 Sat (Calc) VBG Base Excess VBG Potassium A-a O2 Difference 298.0 Respiratory Index 14.9 Sodium 140.0 Chloride 107.0 Glucose 158 H Lactate 5.8 H* Liter Flow FiO2 50.0 Inspiratory BiPAP 20 Expiratory BiPAP 10 Crit Value Called To Fracnisco Javier lee Crit Value Called By Ghazala Crit Value Read Back Y Blood Gas Notified Time 0832 Potassium Carbon Dioxide Anion Gap BUN Creatinine Est GFR ( Amer) Est GFR (Non-Af Amer) POC Glucose (mg/dL) Random Glucose Hemoglobin A1c Lactic Acid Calcium Phosphorus Magnesium Total Bilirubin AST ALT Alkaline Phosphatase Total Creatine Kinase CK-MB (Mass) Troponin I NT-Pro-B Natriuret Pep Total Protein Albumin Globulin Albumin/Globulin Ratio Triglycerides Cholesterol LDL Cholesterol Direct HDL Cholesterol Procalcitonin TSH 3rd Generation Arterial Blood Potassium 3.3 L Venous Blood Potassium Urine Color Urine Clarity Urine pH Ur Specific Novice Urine Protein Urine Glucose (UA) Urine Ketones Urine Blood Urine Nitrate Urine Bilirubin Urine Urobilinogen Ur Leukocyte Esterase Urine WBC (Auto) Urine RBC (Auto) Ur Squamous Epith Cells Urine Bacteria Random Vancomycin Digoxin Urine Opiates Screen Urine Methadone Screen Ur Barbiturates Screen Ur Phencyclidine Scrn Ur Amphetamines Screen U Benzodiazepines Scrn U Oth Cocaine Metabols U Cannabinoids Screen C. difficile Ag & Toxin Hep Bs Antigen Hep Bs Antibody Hep B Core IgM Ab Hepatitis C Antibody Blood Type A POSITIVE Antibody Screen Negative 04/03/18 04/03/18 04/03/18 00:01 00:55 00:55 WBC RBC Hgb Hct MCV MCH MCHC RDW Plt Count MPV Neut % (Auto) Lymph % (Auto) Kings % (Auto) Eos % (Auto) Baso % (Auto) Neut # (Auto) Lymph # (Auto) Kings # (Auto) Eos # (Auto) Baso # (Auto) Neutrophils % (Manual) Band Neutrophils % Lymphocytes % (Manual) Monocytes % (Manual) Metamyelocytes % Myelocytes % Toxic Granulation Platelet Estimate Large Platelets Giant Platelets RBC Morphology Polychromasia Hypochromasia (manual) Poikilocytosis (manual Anisocytosis (manual) Microcytosis (manual) Macrocytosis (manual) Shaan Cells PT INR APTT Puncture Site pCO2 pO2 HCO3 ABG pH ABG Total CO2 ABG O2 Saturation ABG Base Excess [place] Test ABG Potassium VBG pH VBG pCO2 VBG HCO3 VBG Total CO2 VBG O2 Sat (Calc) VBG Base Excess VBG Potassium A-a O2 Difference Respiratory Index Sodium 140 Chloride 109 H Glucose Lactate Liter Flow FiO2 Inspiratory BiPAP Expiratory BiPAP Crit Value Called To Crit Value Called By Crit Value Read Back Blood Gas Notified Time Potassium 3.7 Carbon Dioxide 10 L* Anion Gap 24 H BUN 81 H Creatinine 3.1 H Est GFR ( Amer) 24 Est GFR (Non-Af Amer) 20 POC Glucose (mg/dL) 204 H Random Glucose 206 H Hemoglobin A1c Lactic Acid Calcium 7.4 L Phosphorus 5.0 H Magnesium 2.2 Total Bilirubin 1.4 H AST 33 ALT 24 Alkaline Phosphatase 86 Total Creatine Kinase CK-MB (Mass) Troponin I 0.0520 NT-Pro-B Natriuret Pep Total Protein 4.7 L Albumin 2.2 L D Globulin 2.4 Albumin/Globulin Ratio 0.9 L Triglycerides Cholesterol LDL Cholesterol Direct HDL Cholesterol Procalcitonin TSH 3rd Generation Arterial Blood Potassium Venous Blood Potassium Urine Color Urine Clarity Urine pH Ur Specific Novice Urine Protein Urine Glucose (UA) Urine Ketones Urine Blood Urine Nitrate Urine Bilirubin Urine Urobilinogen Ur Leukocyte Esterase Urine WBC (Auto) Urine RBC (Auto) Ur Squamous Epith Cells Urine Bacteria Random Vancomycin Digoxin Urine Opiates Screen Urine Methadone Screen Ur Barbiturates Screen Ur Phencyclidine Scrn Ur Amphetamines Screen U Benzodiazepines Scrn U Oth Cocaine Metabols U Cannabinoids Screen C. difficile Ag & Toxin Hep Bs Antigen Hep Bs Antibody Hep B Core IgM Ab Hepatitis C Antibody Blood Type Antibody Screen 04/03/18 04/03/18 04/03/18 00:57 02:34 05:44 WBC RBC Hgb Hct MCV MCH MCHC RDW Plt Count MPV Neut % (Auto) Lymph % (Auto) Kings % (Auto) Eos % (Auto) Baso % (Auto) Neut # (Auto) Lymph # (Auto) Kings # (Auto) Eos # (Auto) Baso # (Auto) Neutrophils % (Manual) Band Neutrophils % Lymphocytes % (Manual) Monocytes % (Manual) Metamyelocytes % Myelocytes % Toxic Granulation Platelet Estimate Large Platelets Giant Platelets RBC Morphology Polychromasia Hypochromasia (manual) Poikilocytosis (manual Anisocytosis (manual) Microcytosis (manual) Macrocytosis (manual) [place] Cells PT INR APTT Puncture Site pCO2 pO2 HCO3 ABG pH ABG Total CO2 ABG O2 Saturation ABG Base Excess [place] Test ABG Potassium VBG pH VBG pCO2 VBG HCO3 VBG Total CO2 VBG O2 Sat (Calc) VBG Base Excess VBG Potassium A-a O2 Difference Respiratory Index Sodium Chloride Glucose Lactate Liter Flow FiO2 Inspiratory BiPAP Expiratory BiPAP Crit Value Called To Crit Value Called By Crit Value Read Back Blood Gas Notified Time Potassium Carbon Dioxide Anion Gap BUN Creatinine Est GFR ( Amer) Est GFR (Non-Af Amer) POC Glucose (mg/dL) 275 H Random Glucose Hemoglobin A1c Lactic Acid 5.6 H* Calcium Phosphorus Magnesium Total Bilirubin AST ALT Alkaline Phosphatase Total Creatine Kinase CK-MB (Mass) Troponin I NT-Pro-B Natriuret Pep Total Protein Albumin Globulin Albumin/Globulin Ratio Triglycerides Cholesterol LDL Cholesterol Direct HDL Cholesterol Procalcitonin TSH 3rd Generation Arterial Blood Potassium Venous Blood Potassium Urine Color Urine Clarity Urine pH Ur Specific [place] Urine Protein Urine Glucose (UA) Urine Ketones Urine Blood Urine Nitrate Urine Bilirubin Urine Urobilinogen Ur Leukocyte Esterase Urine WBC (Auto) Urine RBC (Auto) Ur Squamous Epith Cells Urine Bacteria Random Vancomycin Digoxin Urine Opiates Screen Negative Urine Methadone Screen Negative Ur Barbiturates Screen Negative Ur Phencyclidine Scrn Negative Ur Amphetamines Screen Negative U Benzodiazepines Scrn Negative U Oth Cocaine Metabols Negative U Cannabinoids Screen Negative C. difficile Ag & Toxin Hep Bs Antigen Hep Bs Antibody Hep B Core IgM Ab Hepatitis C Antibody Blood Type Antibody Screen 04/03/18 04/03/18 04/03/18 06:23 06:23 06:23 WBC RBC Hgb Hct MCV MCH MCHC RDW Plt Count MPV Neut % (Auto) Lymph % (Auto) Kings % (Auto) Eos % (Auto) Baso % (Auto) Neut # (Auto) Lymph # (Auto) Kings # (Auto) Eos # (Auto) Baso # (Auto) Neutrophils % (Manual) Band Neutrophils % Lymphocytes % (Manual) Monocytes % (Manual) Metamyelocytes % Myelocytes % Toxic Granulation Platelet Estimate Large Platelets Giant Platelets RBC Morphology Polychromasia Hypochromasia (manual) Poikilocytosis (manual Anisocytosis (manual) Microcytosis (manual) Macrocytosis (manual) Shaan Cells PT INR APTT Puncture Site pCO2 pO2 HCO3 ABG pH ABG Total CO2 ABG O2 Saturation ABG Base Excess [place] Test ABG Potassium VBG pH VBG pCO2 VBG HCO3 VBG Total CO2 VBG O2 Sat (Calc) VBG Base Excess VBG Potassium A-a O2 Difference Respiratory Index Sodium 139 Chloride 107 Glucose Lactate Liter Flow FiO2 Inspiratory BiPAP Expiratory BiPAP Crit Value Called To Crit Value Called By Crit Value Read Back Blood Gas Notified Time Potassium 4.3 Carbon Dioxide 15 L Anion Gap 21 H BUN 87 H Creatinine 3.2 H Est GFR ( Amer) 23 Est GFR (Non-Af Amer) 19 POC Glucose (mg/dL) Random Glucose 237 H Hemoglobin A1c Lactic Acid 4.6 H* Calcium 7.4 L Phosphorus Magnesium Total Bilirubin 1.6 H AST 39 ALT 30 Alkaline Phosphatase 64 Total Creatine Kinase CK-MB (Mass) Troponin I NT-Pro-B Natriuret Pep Total Protein 4.8 L Albumin 2.4 L Globulin 2.5 Albumin/Globulin Ratio 1.0 Triglycerides 163 H Cholesterol 83 LDL Cholesterol Direct 33 HDL Cholesterol 14 L Procalcitonin TSH 3rd Generation Arterial Blood Potassium Venous Blood Potassium Urine Color Urine Clarity Urine pH Ur Specific [place] Urine Protein Urine Glucose (UA) Urine Ketones Urine Blood Urine Nitrate Urine Bilirubin Urine Urobilinogen Ur Leukocyte Esterase Urine WBC (Auto) Urine RBC (Auto) Ur Squamous Epith Cells Urine Bacteria Random Vancomycin 6.6 Digoxin Urine Opiates Screen Urine Methadone Screen Ur Barbiturates Screen Ur Phencyclidine Scrn Ur Amphetamines Screen U Benzodiazepines Scrn U Oth Cocaine Metabols U Cannabinoids Screen C. difficile Ag & Toxin Hep Bs Antigen Hep Bs Antibody Hep B Core IgM Ab Hepatitis C Antibody Blood Type Antibody Screen 04/03/18 04/03/18 04/03/18 06:28 06:28 10:24 WBC 19.6 H RBC 3.58 L Hgb 11.3 L Hct 33.2 L MCV 92.7 MCH 31.5 H MCHC 34.0 RDW 14.7 H Plt Count 276 MPV 8.6 Neut % (Auto) 97.0 H Lymph % (Auto) 2.0 L Kings % (Auto) 1.0 Eos % (Auto) 0.0 Baso % (Auto) 0.0 Neut # (Auto) 19.4 H Lymph # (Auto) 0.3 L Kings # (Auto) 0.2 Eos # (Auto) 0.0 Baso # (Auto) 0.0 Neutrophils % (Manual) 86 H Band Neutrophils % 7 H Lymphocytes % (Manual) 2 L Monocytes % (Manual) 3 Metamyelocytes % Myelocytes % 2 H Toxic Granulation Platelet Estimate Normal Large Platelets Giant Platelets RBC Morphology Normal Polychromasia Hypochromasia (manual) Poikilocytosis (manual Anisocytosis (manual) Microcytosis (manual) Macrocytosis (manual) [place] Cells PT INR APTT Puncture Site Lr pCO2 24 L pO2 101 H HCO3 20.3 L ABG pH 7.44 ABG Total CO2 17.0 L ABG O2 Saturation 97.5 ABG Base Excess -6.0 L [place] Test Pos ABG Potassium 3.4 L VBG pH VBG pCO2 VBG HCO3 VBG Total CO2 VBG O2 Sat (Calc) VBG Base Excess VBG Potassium A-a O2 Difference 83.0 Respiratory Index 0.8 Sodium 137.0 Chloride 107.0 Glucose 282 H Lactate 2.8 H Liter Flow FiO2 30.0 Inspiratory BiPAP 15 Expiratory BiPAP 5 Crit Value Called To Crit Value Called By Crit Value Read Back Blood Gas Notified Time Potassium Carbon Dioxide Anion Gap BUN Creatinine Est GFR ( Amer) Est GFR (Non-Af Amer) POC Glucose (mg/dL) Random Glucose Hemoglobin A1c 7.2 H Lactic Acid Calcium Phosphorus Magnesium Total Bilirubin AST ALT Alkaline Phosphatase Total Creatine Kinase CK-MB (Mass) Troponin I NT-Pro-B Natriuret Pep Total Protein Albumin Globulin Albumin/Globulin Ratio Triglycerides Cholesterol LDL Cholesterol Direct HDL Cholesterol Procalcitonin TSH 3rd Generation Arterial Blood Potassium 3.4 L Venous Blood Potassium Urine Color Urine Clarity Urine pH Ur Specific [place] Urine Protein Urine Glucose (UA) Urine Ketones Urine Blood Urine Nitrate Urine Bilirubin Urine Urobilinogen Ur Leukocyte Esterase Urine WBC (Auto) Urine RBC (Auto) Ur Squamous Epith Cells Urine Bacteria Random Vancomycin Digoxin Urine Opiates Screen Urine Methadone Screen Ur Barbiturates Screen Ur Phencyclidine Scrn Ur Amphetamines Screen U Benzodiazepines Scrn U Oth Cocaine Metabols U Cannabinoids Screen C. difficile Ag & Toxin Hep Bs Antigen Hep Bs Antibody Hep B Core IgM Ab Hepatitis C Antibody Blood Type Antibody Screen Assessment & Plan (1) TERRENCE (acute kidney injury) Status: Acute (2) Sepsis associated hypotension Status: Acute (3) Atrial fibrillation Status: Acute (4) Cellulitis of right leg Status: Acute (5) Chronic kidney disease, stage III (moderate) Status: Acute - Assessment and Plan (Free Text) Assessment: r/o Toxic shock syndrome with diarrhea secodary to enterotoxins from Staph in wounds c diff negative cont iv fluids antibiotics wound care resp support
[2018-04-03] MEDS ORDERED: Glucagon Recombinant 1 mg Inj IM PRN (12:00)
[2018-04-03] MEDS ORDERED: Dextrose 50% SYRINGE Inj (50 ml) IV PRN (12:00)
--- NOTE | 2018-04-03 12:12 | CP.PCM.CON ---
History of Present Illness - History of Present Illness History of Present Illness: Palliative consult requested by Doctor Elvia Pollack for goals of care discussion Patient is a72 yo male admitted from home after falling from his chair. Per medical record, patient has been with [facility] for few days. First time his son Rohan called 911, patient refused to go to hospital. Patent's condition worsened with SOB and 911 calledagain, when patient was brought to [facility]. CT head and CT chest were negative acute singings. Patient found with WBC of 52.3, diagnosed with sepsis at treated accordingly. Patient admitted with very bad, infected looking wounds of LEs. C&S positive Gram + rods. Patient was in severe respiratory distress, acidic and with dangereously high K of 7.1. After all medical interventions , WBC down to 49.6 and K 4.3 today. However, patient remains very sick and family meeting was needed for goals of care dscussion. PMH: colon polyps, leg ulcers, abd. Sx Soc. hx: , lives at home with son Rohan, has one more son and daughter who are in [place] and [place]. Daughter Afsaneh [phone] is the oldest and is most included in decisions making. 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 Hx: significant medical Hx denied Review of Systems - Review of Systems All systems: reviewed and no additional remarkable complaints except Review of Systems: ROS obtained from nursing due to patient's condition. Per nursing patient remains afebrile, the wounds on both calfs smell very bad. Past Patient History - Infectious Disease Hx of Infectious Diseases: None - Past Medical History & Family History Past Medical History?: Yes - Past Social History Smoking Status: Former Smoker - CARDIAC Hx Peripheral Edema: Yes - PULMONARY Hx Respiratory Disorders: No - NEUROLOGICAL Hx Neurological Disorder: No - HEENT Hx HEENT Problems: Yes Hx Glaucoma: Yes - RENAL Hx Chronic Kidney Disease: Yes Hx Kidney Stones: Yes - ENDOCRINE/METABOLIC Hx Endocrine Disorders: No - HEMATOLOGICAL/ONCOLOGICAL Hx Blood Disorders: Yes Hx Cancer: Yes (Colon) - INTEGUMENTARY Hx Dermatological Problems: No - MUSCULOSKELETAL/RHEUMATOLOGICAL Hx Arthritis: Yes (FINGERS) Hx Fractures: Yes (left leg as toddler) - GASTROINTESTINAL Hx Gastrointestinal Disorders: Yes Other/Comment: Colon Ca - GENITOURINARY/GYNECOLOGICAL Hx Genitourinary Disorders: Yes Hx Prostate Problems: Yes - PSYCHIATRIC Hx Substance Use: No - SURGICAL HISTORY Hx Surgeries: Yes Other/Comment: Cysto, stent insertion 09/29/15, Colon resction 2010. [facility]/LITHOTRIPSY - ANESTHESIA Hx Anesthesia: Yes Hx Anesthesia Reactions: No Hx Malignant Hyperthermia: No Meds Allergies/Adverse Reactions: Allergies Allergy/AdvReac Type Severity Reaction Status Date / Time cefdinir [From Omnicef] Allergy Verified 10/02/17 11:52 - Medications Medications: Current Medications Aspirin (Ecotrin) 81 mg PO DAILY [facility] Last Admin: 04/03/18 11:18 Dose: Not Given Famotidine (Pepcid) 20 mg IVP DAILY [facility] Last Admin: 04/03/18 11:17 Dose: 20 mg Heparin Sodium (Porcine) (Heparin) 5,000 units SC Q8 KARAN Hydrocortisone Sodium Succinate (Solu-Cortef) 100 mg IV Q8H [facility] Last Admin: 04/03/18 05:52 Dose: 100 mg Meropenem 500 mg/ Sodium (Chloride) 100 mls @ 100 mls/hr IVPB Q8 KARAN PRN Reason: Protocol Last Admin: 04/03/18 05:11 Dose: 100 mls/hr Metronidazole (Flagyl) 500 mg in 100 mls @ 100 mls/hr IVPB Q8 KARAN PRN Reason: Protocol Last Admin: 04/03/18 05:12 Dose: 100 mls/hr Norepinephrine Bitartrate 8 mg (/ Dextrose) 258 mls @ 7.74 mls/hr IV .Q24H PRN ; Protocol; 4 MCG/MIN PRN Reason: TITRATE PER MD ORDER Last Titration: 04/03/18 11:00 Dose: 6 mcg/min, 11.61 mls/hr Amiodarone HCl 900 mg/ (Dextrose) 500 mls @ 16.66 mls/hr IV .Q24H KARAN; 0.5 MG/ MIN PRN Reason: Protocol Stop: 04/03/18 21:30 Last Admin: 04/03/18 03:30 Dose: 16.66 mls/hr Vasopressin 40 units/ Dextrose 40 mls @ 2.4 mls/hr IV .[id number] KARAN PRN Reason: 0.04 UNITS/MIN Last Admin: 04/03/18 08:33 Dose: 2.4 mls/hr Sodium Bicarbonate 150 meq/ (Dextrose) 1,000 mls @ 75 mls/hr IV .[id number] [facility] Last Admin: 04/02/18 23:30 Dose: 75 mls/hr Phenylephrine HCl 30 mg/ (Dextrose) 253 mls @ 10.12 mls/hr IV .Q24H PRN; Protocol; 20 MCG/MIN PRN Reason: TITRATE PER MD ORDER Last Admin: 04/02/18 23:28 Dose: 20 mcg/min, 10.12 mls/hr Verapamil HCl 40 mg/ Sodium (Chloride) 100 mls @ 18.75 mls/hr IV .[id number] PRN; Protocol; 7.5 MG/HR PRN Reason: FOR HR Last Admin: 04/03/18 05:24 Dose: 18.75 mls/hr Vancomycin/Sodium Chloride (Vancomycin 1 Gm/Ns 200 Ml) 1 gm in 200 mls @ 133.333 mls/hr IVPB Q48H KARAN PRN Reason: Protocol Saccharomyces Boulardii (Florastor) 250 mg PO Q12 [facility] Last Admin: 04/03/18 10:00 Dose: Not Given Sodium Hypochlorite (Dakins Solution 0.5%) 0 ml TOP ONCE ONE Stop: 04/03/18 18:01 Vancomycin HCl (Vancocin (Oral Or Rectal Use)) 500 mg PO QID [facility] PRN Reason: Protocol Last Admin: 04/02/18 22:45 Dose: Not Given Physical Exam - Constitutional Appears: Chronically Ill - Head Exam Head Exam: ATRAUMATIC, NORMAL INSPECTION, NORMOCEPHALIC - Eye Exam Eye Exam: EOMI, PERRL Pupil Exam: NORMAL ACCOMODATION, PERRL - ENT Exam ENT Exam: Mucous Membranes Moist, Normal Exam - Neck Exam Neck exam: Positive for: Normal Inspection - Respiratory Exam Respiratory Exam: Decreased Breath Sounds, Prolonged Expiratory Phase, NORMAL BREATHING PATTERN - Cardiovascular Exam Cardiovascular Exam: Tachycardia - GI/Abdominal Exam GI & Abdominal Exam: Normal Bowel Sounds - Rectal Exam Rectal Exam: Deferred - Exam Exam: NORMAL INSPECTION - Extremities Exam Additional comments: open wounds to anterior LEs with faul odor - Back Exam Back exam: NORMAL INSPECTION - Neurological Exam Neurological exam: Motor Sensory Deficit - Psychiatric Exam Psychiatric exam: Flat Affect - Skin Skin Exam: Mottled, Normal Color Results - Vital Signs Recent Vital Signs: Last Vital Signs Temp 97.6 F 04/03/18 04:00 Pulse 113 H 04/03/18 11:19 Resp 22 04/03/18 11:19 BP 121/28 L 04/03/18 11:19 Pulse Ox 99 04/03/18 11:19 - Labs Result Diagrams: 04/03/18 06:28 04/03/18 06:23 Labs: Laboratory Results - last 24 hr 04/02/18 04/02/18 04/02/18 15:25 15:25 15:30 WBC 52.3 H* D RBC 4.32 L Hgb 13.2 D Hct 41.2 MCV 95.5 H D MCH 30.6 MCHC 32.0 L RDW 15.6 H Plt Count 516 H D MPV 8.7 Neut % (Auto) 96.4 H Lymph % (Auto) 0.7 L [place] % (Auto) 2.3 Eos % (Auto) 0.1 Baso % (Auto) 0.5 Neut # (Auto) 50.4 H Lymph # (Auto) 0.4 L [place] # (Auto) 1.2 H Eos # (Auto) 0.0 Baso # (Auto) 0.3 H Neutrophils % (Manual) 90 H Band Neutrophils % 2 Lymphocytes % (Manual) 1 L Monocytes % (Manual) 4 Metamyelocytes % 1 H Myelocytes % 2 H Toxic Granulation Present Platelet Estimate Increased H Large Platelets Present Giant Platelets RBC Morphology Polychromasia Hypochromasia (manual) Poikilocytosis (manual Slight Anisocytosis (manual) Slight Microcytosis (manual) Slight Macrocytosis (manual) Slight Shaan Cells PT 13.3 H INR 1.2 APTT 21 Puncture Site pCO2 pO2 60 H HCO3 ABG pH ABG Total CO2 ABG O2 Saturation ABG Base Excess [place] Test ABG Potassium VBG pH 6.87 L* VBG pCO2 17 L* VBG HCO3 1.2 VBG Total CO2 3.6 L VBG O2 Sat (Calc) 90.1 H VBG Base Excess -29.2 L VBG Potassium 11.7 H* A-a O2 Difference Respiratory Index Sodium 123.0 L Chloride 99.0 Glucose 202 H Lactate 3.3 H Liter Flow FiO2 Inspiratory BiPAP Expiratory BiPAP Crit 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 Crit Value Called By Dennis raza md Crit Value Read Back Y Blood Gas Notified Time 1530 Potassium Carbon Dioxide Anion Gap BUN Creatinine Est GFR ( Amer) Est GFR (Non-Af Amer) POC Glucose (mg/dL) Random Glucose Hemoglobin A1c Lactic Acid Calcium Phosphorus Magnesium Total Bilirubin AST ALT Alkaline Phosphatase Total Creatine Kinase CK-MB (Mass) Troponin I NT-Pro-B Natriuret Pep Total Protein Albumin Globulin Albumin/Globulin Ratio Triglycerides Cholesterol LDL Cholesterol Direct HDL Cholesterol Procalcitonin TSH 3rd Generation Arterial Blood Potassium Venous Blood Potassium 11.7 H* Urine Color Urine Clarity Urine pH Ur Specific [place] Urine Protein Urine Glucose (UA) Urine Ketones Urine Blood Urine Nitrate Urine Bilirubin Urine Urobilinogen Ur Leukocyte Esterase Urine WBC (Auto) Urine RBC (Auto) Ur Squamous Epith Cells Urine Bacteria Random Vancomycin Digoxin Urine Opiates Screen Urine Methadone Screen Ur Barbiturates Screen Ur Phencyclidine Scrn Ur Amphetamines Screen U Benzodiazepines Scrn U Oth Cocaine Metabols U Cannabinoids Screen C. difficile Ag & Toxin Hep Bs Antigen Hep Bs Antibody Hep B Core IgM Ab Hepatitis C Antibody Blood Type Antibody Screen 04/02/18 04/02/18 04/02/18 16:03 16:10 18:08 WBC RBC Hgb Hct MCV MCH MCHC RDW Plt Count MPV Neut % (Auto) Lymph % (Auto) [place] % (Auto) Eos % (Auto) Baso % (Auto) Neut # (Auto) Lymph # (Auto) [place] # (Auto) Eos # (Auto) Baso # (Auto) Neutrophils % (Manual) Band Neutrophils % Lymphocytes % (Manual) Monocytes % (Manual) Metamyelocytes % Myelocytes % Toxic Granulation Platelet Estimate Large Platelets Giant Platelets RBC Morphology Polychromasia Hypochromasia (manual) Poikilocytosis (manual Anisocytosis (manual) Microcytosis (manual) Macrocytosis (manual) Shaan Cells PT INR APTT Puncture Site pCO2 pO2 HCO3 ABG pH ABG Total CO2 ABG O2 Saturation ABG Base Excess [place] Test ABG Potassium VBG pH VBG pCO2 VBG HCO3 VBG Total CO2 VBG O2 Sat (Calc) VBG Base Excess VBG Potassium A-a O2 Difference Respiratory Index Sodium 131 L Chloride 109 H Glucose Lactate Liter Flow FiO2 Inspiratory BiPAP Expiratory BiPAP Crit Value Called To Crit Value Called By Crit Value Read Back Blood Gas Notified Time Potassium 7.1 H* D Carbon Dioxide < 5 L* D Anion Gap 24 H BUN 150 H* D Creatinine 6.2 H Est GFR ( Amer) 11 Est GFR (Non-Af Amer) 9 POC Glucose (mg/dL) Random Glucose 176 H Hemoglobin A1c Lactic Acid Calcium 7.0 L Phosphorus 12.4 H Magnesium 2.4 H Total Bilirubin 0.8 AST 25 ALT 17 L Alkaline Phosphatase 95 Total Creatine Kinase 476 H CK-MB (Mass) 12.1 H Troponin I < 0.0120 < 0.0120 NT-Pro-B Natriuret Pep 5000 H 5290 H Total Protein 5.9 L Albumin 2.9 L Globulin 3.1 Albumin/Globulin Ratio 0.9 L Triglycerides Cholesterol LDL Cholesterol Direct HDL Cholesterol Procalcitonin TSH 3rd Generation 2.67 Arterial Blood Potassium Venous Blood Potassium Urine Color Yellow Urine Clarity Hazy Urine pH 5.0 Ur Specific [place] 1.014 Urine Protein Negative Urine Glucose (UA) Normal Urine Ketones Negative Urine Blood 1+ H Urine Nitrate Negative Urine Bilirubin Negative Urine Urobilinogen Normal Ur Leukocyte Esterase 1+ H Urine WBC (Auto) 7 H Urine RBC (Auto) 7 H Ur Squamous Epith Cells 1 Urine Bacteria Rare Random Vancomycin Digoxin Urine Opiates Screen Urine Methadone Screen Ur Barbiturates Screen Ur Phencyclidine Scrn Ur Amphetamines Screen U Benzodiazepines Scrn U Oth Cocaine Metabols U Cannabinoids Screen C. difficile Ag & Toxin Hep Bs Antigen Hep Bs Antibody Hep B Core IgM Ab Hepatitis C Antibody Blood Type Antibody Screen 04/02/18 04/02/18 04/02/18 18:08 18:36 18:51 WBC RBC Hgb Hct MCV MCH MCHC RDW Plt Count MPV Neut % (Auto) Lymph % (Auto) [place] % (Auto) Eos % (Auto) Baso % (Auto) Neut # (Auto) Lymph # (Auto) [place] # (Auto) Eos # (Auto) Baso # (Auto) Neutrophils % (Manual) Band Neutrophils % Lymphocytes % (Manual) Monocytes % (Manual) Metamyelocytes % Myelocytes % Toxic Granulation Platelet Estimate Large Platelets Giant Platelets RBC Morphology Polychromasia Hypochromasia (manual) Poikilocytosis (manual Anisocytosis (manual) Microcytosis (manual) Macrocytosis (manual) [place] Cells PT INR APTT Puncture Site pCO2 pO2 44 HCO3 ABG pH ABG Total CO2 ABG O2 Saturation ABG Base Excess [place] Test ABG Potassium VBG pH 7.07 L* VBG pCO2 15 L* VBG HCO3 5.3 VBG Total CO2 4.8 L VBG O2 Sat (Calc) 82.4 H VBG Base Excess -23.8 L VBG Potassium 4.1 A-a O2 Difference Respiratory Index Sodium 135.0 Chloride 114.0 H Glucose 108 Lactate 2.3 H Liter Flow FiO2 Inspiratory BiPAP Expiratory BiPAP Crit Value Called To [facility] agricultural agent Crit Value Called By Ghazala Crit Value Read Back Y Blood Gas Notified Time 1840 Potassium Carbon Dioxide Anion Gap BUN Creatinine Est GFR ( Amer) Est GFR (Non-Af Amer) POC Glucose (mg/dL) Random Glucose Hemoglobin A1c Lactic Acid 3.1 H Calcium Phosphorus Magnesium Total Bilirubin AST ALT Alkaline Phosphatase Total Creatine Kinase CK-MB (Mass) Troponin I NT-Pro-B Natriuret Pep Total Protein Albumin Globulin Albumin/Globulin Ratio Triglycerides Cholesterol LDL Cholesterol Direct HDL Cholesterol Procalcitonin 6.48 H TSH 3rd Generation Arterial Blood Potassium Venous Blood Potassium 4.1 Urine Color Urine Clarity Urine pH Ur Specific [place] Urine Protein Urine Glucose (UA) Urine Ketones Urine Blood Urine Nitrate Urine Bilirubin Urine Urobilinogen Ur Leukocyte Esterase Urine WBC (Auto) Urine RBC (Auto) Ur Squamous Epith Cells Urine Bacteria Random Vancomycin Digoxin Urine Opiates Screen Urine Methadone Screen Ur Barbiturates Screen Ur Phencyclidine Scrn Ur Amphetamines Screen U Benzodiazepines Scrn U Oth Cocaine Metabols U Cannabinoids Screen C. difficile Ag & Toxin Hep Bs Antigen Hep Bs Antibody Hep B Core IgM Ab Hepatitis C Antibody Blood Type Antibody Screen 04/02/18 04/02/18 04/02/18 19:27 19:27 19:46 WBC RBC Hgb Hct MCV MCH MCHC RDW Plt Count MPV Neut % (Auto) Lymph % (Auto) [place] % (Auto) Eos % (Auto) Baso % (Auto) Neut # (Auto) Lymph # (Auto) [place] # (Auto) Eos # (Auto) Baso # (Auto) Neutrophils % (Manual) Band Neutrophils % Lymphocytes % (Manual) Monocytes % (Manual) Metamyelocytes % Myelocytes % Toxic Granulation Platelet Estimate Large Platelets Giant Platelets RBC Morphology Polychromasia Hypochromasia (manual) Poikilocytosis (manual Anisocytosis (manual) Microcytosis (manual) Macrocytosis (manual) Shaan Cells PT INR APTT Puncture Site pCO2 pO2 HCO3 ABG pH ABG Total CO2 ABG O2 Saturation ABG Base Excess [place] Test ABG Potassium VBG pH VBG pCO2 VBG HCO3 VBG Total CO2 VBG O2 Sat (Calc) VBG Base Excess VBG Potassium A-a O2 Difference Respiratory Index Sodium Chloride Glucose Lactate Liter Flow FiO2 Inspiratory BiPAP Expiratory BiPAP Crit Value Called To Crit Value Called By Crit Value Read Back Blood Gas Notified Time Potassium Carbon Dioxide Anion Gap BUN Creatinine Est GFR ( Amer) Est GFR (Non-Af Amer) POC Glucose (mg/dL) Random Glucose Hemoglobin A1c Lactic Acid Calcium Phosphorus Magnesium Total Bilirubin AST ALT Alkaline Phosphatase Total Creatine Kinase CK-MB (Mass) Troponin I NT-Pro-B Natriuret Pep Total Protein Albumin Globulin Albumin/Globulin Ratio Triglycerides Cholesterol LDL Cholesterol Direct HDL Cholesterol Procalcitonin TSH 3rd Generation Arterial Blood Potassium Venous Blood Potassium Urine Color Urine Clarity Urine pH Ur Specific [place] Urine Protein Urine Glucose (UA) Urine Ketones Urine Blood Urine Nitrate Urine Bilirubin Urine Urobilinogen Ur Leukocyte Esterase Urine WBC (Auto) Urine RBC (Auto) Ur Squamous Epith Cells Urine Bacteria Random Vancomycin Digoxin Urine Opiates Screen Urine Methadone Screen Ur Barbiturates Screen Ur Phencyclidine Scrn Ur Amphetamines Screen U Benzodiazepines Scrn U Oth Cocaine Metabols U Cannabinoids Screen C. difficile Ag & Toxin Negative Hep Bs Antigen Negative Hep Bs Antibody Negative Hep B Core IgM Ab Negative Hepatitis C Antibody Negative Blood Type Antibody Screen 04/02/18 04/02/18 04/02/18 20:24 20:40 20:49 WBC RBC Hgb Hct MCV MCH MCHC RDW Plt Count MPV Neut % (Auto) Lymph % (Auto) [place] % (Auto) Eos % (Auto) Baso % (Auto) Neut # (Auto) Lymph # (Auto) [place] # (Auto) Eos # (Auto) Baso # (Auto) Neutrophils % (Manual) Band Neutrophils % Lymphocytes % (Manual) Monocytes % (Manual) Metamyelocytes % Myelocytes % Toxic Granulation Platelet Estimate Large Platelets Giant Platelets RBC Morphology Polychromasia Hypochromasia (manual) Poikilocytosis (manual Anisocytosis (manual) Microcytosis (manual) Macrocytosis (manual) Shaan Cells PT INR APTT Puncture Site Rra pCO2 16 L* pO2 149 H 38 HCO3 12.3 L ABG pH 7.29 L ABG Total CO2 8.2 L ABG O2 Saturation 98.0 ABG Base Excess -16.3 L [place] Test Na ABG Potassium 2.3 L* VBG pH 7.24 L VBG pCO2 27 L VBG HCO3 12.9 VBG Total CO2 12.4 L VBG O2 Sat (Calc) 76.8 H VBG Base Excess -14.2 L VBG Potassium 4.0 A-a O2 Difference 45.0 Respiratory Index 0.3 Sodium 146.0 137.0 Chloride 124.0 H 108.0 H Glucose 100 125 H Lactate 2.5 H 4.4 H* Liter Flow 3.0 FiO2 30.0 Inspiratory BiPAP Expiratory BiPAP Crit Value Called To Ranjeet Pollack md Crit Value Called By Ghazala Vivar Crit Value Read Back Y Y Blood Gas Notified Time 2042 2052 Potassium Carbon Dioxide Anion Gap BUN Creatinine Est GFR ( Amer) Est GFR (Non-Af Amer) POC Glucose (mg/dL) 137 H Random Glucose Hemoglobin A1c Lactic Acid Calcium Phosphorus Magnesium Total Bilirubin AST ALT Alkaline Phosphatase Total Creatine Kinase CK-MB (Mass) Troponin I NT-Pro-B Natriuret Pep Total Protein Albumin Globulin Albumin/Globulin Ratio Triglycerides Cholesterol LDL Cholesterol Direct HDL Cholesterol Procalcitonin TSH 3rd Generation Arterial Blood Potassium 2.3 L* Venous Blood Potassium 4.0 Urine Color Urine Clarity Urine pH Ur Specific [place] Urine Protein Urine Glucose (UA) Urine Ketones Urine Blood Urine Nitrate Urine Bilirubin Urine Urobilinogen Ur Leukocyte Esterase Urine WBC (Auto) Urine RBC (Auto) Ur Squamous Epith Cells Urine Bacteria Random Vancomycin Digoxin Urine Opiates Screen Urine Methadone Screen Ur Barbiturates Screen Ur Phencyclidine Scrn Ur Amphetamines Screen U Benzodiazepines Scrn U Oth Cocaine Metabols U Cannabinoids Screen C. difficile Ag & Toxin Hep Bs Antigen Hep Bs Antibody Hep B Core IgM Ab Hepatitis C Antibody Blood Type Antibody Screen 04/02/18 04/02/18 04/02/18 20:50 21:16 21:16 WBC RBC Hgb Hct MCV MCH MCHC RDW Plt Count MPV Neut % (Auto) Lymph % (Auto) [place] % (Auto) Eos % (Auto) Baso % (Auto) Neut # (Auto) Lymph # (Auto) [place] # (Auto) Eos # (Auto) Baso # (Auto) Neutrophils % (Manual) Band Neutrophils % Lymphocytes % (Manual) Monocytes % (Manual) Metamyelocytes % Myelocytes % Toxic Granulation Platelet Estimate Large Platelets Giant Platelets RBC Morphology Polychromasia Hypochromasia (manual) Poikilocytosis (manual Anisocytosis (manual) Microcytosis (manual) Macrocytosis (manual) [place] Cells PT INR APTT Puncture Site pCO2 pO2 HCO3 ABG pH ABG Total CO2 ABG O2 Saturation ABG Base Excess [place] Test ABG Potassium VBG pH VBG pCO2 VBG HCO3 VBG Total CO2 VBG O2 Sat (Calc) VBG Base Excess VBG Potassium A-a O2 Difference Respiratory Index Sodium 141 Chloride 111 H Glucose Lactate Liter Flow FiO2 Inspiratory BiPAP Expiratory BiPAP Crit Value Called To Crit Value Called By Crit Value Read Back Blood Gas Notified Time Potassium 4.1 Carbon Dioxide 11 L* D Anion Gap 23 H BUN 116 H* D Creatinine 4.7 H Est GFR ( Amer) 15 Est GFR (Non-Af Amer) 12 POC Glucose (mg/dL) Random Glucose 126 H Hemoglobin A1c Lactic Acid 4.1 H* Calcium 9.3 Phosphorus 8.1 H Magnesium 1.9 Total Bilirubin AST ALT Alkaline Phosphatase Total Creatine Kinase CK-MB (Mass) Troponin I NT-Pro-B Natriuret Pep Total Protein Albumin Globulin Albumin/Globulin Ratio Triglycerides Cholesterol LDL Cholesterol Direct HDL Cholesterol Procalcitonin TSH 3rd Generation Arterial Blood Potassium Venous Blood Potassium Urine Color Urine Clarity Urine pH Ur Specific [place] Urine Protein Urine Glucose (UA) Urine Ketones Urine Blood Urine Nitrate Urine Bilirubin Urine Urobilinogen Ur Leukocyte Esterase Urine WBC (Auto) Urine RBC (Auto) Ur Squamous Epith Cells Urine Bacteria Random Vancomycin Digoxin < 0.4 L Urine Opiates Screen Urine Methadone Screen Ur Barbiturates Screen Ur Phencyclidine Scrn Ur Amphetamines Screen U Benzodiazepines Scrn U Oth Cocaine Metabols U Cannabinoids Screen C. difficile Ag & Toxin Hep Bs Antigen Hep Bs Antibody Hep B Core IgM Ab Hepatitis C Antibody Blood Type Antibody Screen 04/02/18 04/02/18 04/02/18 22:30 22:42 23:04 WBC 22.6 H D RBC 3.73 L Hgb 11.5 L Hct 34.3 L MCV 92.0 D MCH 30.9 MCHC 33.6 RDW 14.6 H Plt Count 312 D MPV 8.2 Neut % (Auto) 97.6 H Lymph % (Auto) 0.8 L [place] % (Auto) 1.5 Eos % (Auto) 0.0 Baso % (Auto) 0.1 Neut # (Auto) 22.1 H Lymph # (Auto) 0.2 L [place] # (Auto) 0.3 Eos # (Auto) 0.0 Baso # (Auto) 0.0 Neutrophils % (Manual) 86 H Band Neutrophils % 12 H* Lymphocytes % (Manual) TEST NOT PERFORMED Monocytes % (Manual) 2 Metamyelocytes % Myelocytes % Toxic Granulation Present Platelet Estimate Normal Large Platelets Present Giant Platelets Present RBC Morphology Polychromasia Slight Hypochromasia (manual) Slight Poikilocytosis (manual Slight Anisocytosis (manual) Slight Microcytosis (manual) Slight Macrocytosis (manual) Slight [place]aan Cells Slight PT INR APTT Puncture Site Lra pCO2 31 L pO2 20 L* HCO3 15.3 L ABG pH 7.30 L ABG Total CO2 16.3 L ABG O2 Saturation 40.2 L ABG Base Excess -9.9 L [place] Test Na ABG Potassium 3.3 L VBG pH VBG pCO2 VBG HCO3 VBG Total CO2 VBG O2 Sat (Calc) VBG Base Excess VBG Potassium A-a O2 Difference 298.0 Respiratory Index 14.9 Sodium 140.0 Chloride 107.0 Glucose 158 H Lactate 5.8 H* Liter Flow FiO2 50.0 Inspiratory BiPAP 20 Expiratory BiPAP 10 Crit Value Called To Francisco Javier lee Crit Value Called By Ghazala Crit Value Read Back Y Blood Gas Notified Time 2243 Potassium Carbon Dioxide Anion Gap BUN Creatinine Est GFR ( Amer) Est GFR (Non-Af Amer) POC Glucose (mg/dL) Random Glucose Hemoglobin A1c Lactic Acid Calcium Phosphorus Magnesium Total Bilirubin AST ALT Alkaline Phosphatase Total Creatine Kinase CK-MB (Mass) Troponin I NT-Pro-B Natriuret Pep Total Protein Albumin Globulin Albumin/Globulin Ratio Triglycerides Cholesterol LDL Cholesterol Direct HDL Cholesterol Procalcitonin TSH 3rd Generation Arterial Blood Potassium 3.3 L Venous Blood Potassium Urine Color Urine Clarity Urine pH Ur Specific [place] Urine Protein Urine Glucose (UA) Urine Ketones Urine Blood Urine Nitrate Urine Bilirubin Urine Urobilinogen Ur Leukocyte Esterase Urine WBC (Auto) Urine RBC (Auto) Ur Squamous Epith Cells Urine Bacteria Random Vancomycin Digoxin Urine Opiates Screen Urine Methadone Screen Ur Barbiturates Screen Ur Phencyclidine Scrn Ur Amphetamines Screen U Benzodiazepines Scrn U Oth Cocaine Metabols U Cannabinoids Screen C. difficile Ag & Toxin Hep Bs Antigen Hep Bs Antibody Hep B Core IgM Ab Hepatitis C Antibody Blood Type A POSITIVE Antibody Screen Negative 04/03/18 04/03/18 04/03/18 00:01 00:55 00:55 WBC RBC Hgb Hct MCV MCH MCHC RDW Plt Count MPV Neut % (Auto) Lymph % (Auto) [place] % (Auto) Eos % (Auto) Baso % (Auto) Neut # (Auto) Lymph # (Auto) [place] # (Auto) Eos # (Auto) Baso # (Auto) Neutrophils % (Manual) Band Neutrophils % Lymphocytes % (Manual) Monocytes % (Manual) Metamyelocytes % Myelocytes % Toxic Granulation Platelet Estimate Large Platelets Giant Platelets RBC Morphology Polychromasia Hypochromasia (manual) Poikilocytosis (manual Anisocytosis (manual) Microcytosis (manual) Macrocytosis (manual) [place] Cells PT INR APTT Puncture Site pCO2 pO2 HCO3 ABG pH ABG Total CO2 ABG O2 Saturation ABG Base Excess [place] Test ABG Potassium VBG pH VBG pCO2 VBG HCO3 VBG Total CO2 VBG O2 Sat (Calc) VBG Base Excess VBG Potassium A-a O2 Difference Respiratory Index Sodium 140 Chloride 109 H Glucose Lactate Liter Flow FiO2 Inspiratory BiPAP Expiratory BiPAP Crit Value Called To Crit Value Called By Crit Value Read Back Blood Gas Notified Time Potassium 3.7 Carbon Dioxide 10 L* Anion Gap 24 H BUN 81 H Creatinine 3.1 H Est GFR ( Amer) 24 Est GFR (Non-Af Amer) 20 POC Glucose (mg/dL) 204 H Random Glucose 206 H Hemoglobin A1c Lactic Acid Calcium 7.4 L Phosphorus 5.0 H Magnesium 2.2 Total Bilirubin 1.4 H AST 33 ALT 24 Alkaline Phosphatase 86 Total Creatine Kinase CK-MB (Mass) Troponin I 0.0520 NT-Pro-B Natriuret Pep Total Protein 4.7 L Albumin 2.2 L D Globulin 2.4 Albumin/Globulin Ratio 0.9 L Triglycerides Cholesterol LDL Cholesterol Direct HDL Cholesterol Procalcitonin TSH 3rd Generation Arterial Blood Potassium Venous Blood Potassium Urine Color Urine Clarity Urine pH Ur Specific [place] Urine Protein Urine Glucose (UA) Urine Ketones Urine Blood Urine Nitrate Urine Bilirubin Urine Urobilinogen Ur Leukocyte Esterase Urine WBC (Auto) Urine RBC (Auto) Ur Squamous Epith Cells Urine Bacteria Random Vancomycin Digoxin Urine Opiates Screen Urine Methadone Screen Ur Barbiturates Screen Ur Phencyclidine Scrn Ur Amphetamines Screen U Benzodiazepines Scrn U Oth Cocaine Metabols U Cannabinoids Screen C. difficile Ag & Toxin Hep Bs Antigen Hep Bs Antibody Hep B Core IgM Ab Hepatitis C Antibody Blood Type Antibody Screen 04/03/18 04/03/18 04/03/18 00:57 02:34 05:44 WBC RBC Hgb Hct MCV MCH MCHC RDW Plt Count MPV Neut % (Auto) Lymph % (Auto) [place] % (Auto) Eos % (Auto) Baso % (Auto) Neut # (Auto) Lymph # (Auto) [place] # (Auto) Eos # (Auto) Baso # (Auto) Neutrophils % (Manual) Band Neutrophils % Lymphocytes % (Manual) Monocytes % (Manual) Metamyelocytes % Myelocytes % Toxic Granulation Platelet Estimate Large Platelets Giant Platelets RBC Morphology Polychromasia Hypochromasia (manual) Poikilocytosis (manual Anisocytosis (manual) Microcytosis (manual) Macrocytosis (manual) [place] Cells PT INR APTT Puncture Site pCO2 pO2 HCO3 ABG pH ABG Total CO2 ABG O2 Saturation ABG Base Excess [place] Test ABG Potassium VBG pH VBG pCO2 VBG HCO3 VBG Total CO2 VBG O2 Sat (Calc) VBG Base Excess VBG Potassium A-a O2 Difference Respiratory Index Sodium Chloride Glucose Lactate Liter Flow FiO2 Inspiratory BiPAP Expiratory BiPAP Crit Value Called To Crit Value Called By Crit Value Read Back Blood Gas Notified Time Potassium Carbon Dioxide Anion Gap BUN Creatinine Est GFR ( Amer) Est GFR (Non-Af Amer) POC Glucose (mg/dL) 275 H Random Glucose Hemoglobin A1c Lactic Acid 5.6 H* Calcium Phosphorus Magnesium Total Bilirubin AST ALT Alkaline Phosphatase Total Creatine Kinase CK-MB (Mass) Troponin I NT-Pro-B Natriuret Pep Total Protein Albumin Globulin Albumin/Globulin Ratio Triglycerides Cholesterol LDL Cholesterol Direct HDL Cholesterol Procalcitonin TSH 3rd Generation Arterial Blood Potassium Venous Blood Potassium Urine Color Urine Clarity Urine pH Ur Specific [place] Urine Protein Urine Glucose (UA) Urine Ketones Urine Blood Urine Nitrate Urine Bilirubin Urine Urobilinogen Ur Leukocyte Esterase Urine WBC (Auto) Urine RBC (Auto) Ur Squamous Epith Cells Urine Bacteria Random Vancomycin Digoxin Urine Opiates Screen Negative Urine Methadone Screen Negative Ur Barbiturates Screen Negative Ur Phencyclidine Scrn Negative Ur Amphetamines Screen Negative U Benzodiazepines Scrn Negative U Oth Cocaine Metabols Negative U Cannabinoids Screen Negative C. difficile Ag & Toxin Hep Bs Antigen Hep Bs Antibody Hep B Core IgM Ab Hepatitis C Antibody Blood Type Antibody Screen 04/03/18 04/03/18 04/03/18 06:23 06:23 06:23 WBC RBC Hgb Hct MCV MCH MCHC RDW Plt Count MPV Neut % (Auto) Lymph % (Auto) [place] % (Auto) Eos % (Auto) Baso % (Auto) Neut # (Auto) Lymph # (Auto) [place] # (Auto) Eos # (Auto) Baso # (Auto) Neutrophils % (Manual) Band Neutrophils % Lymphocytes % (Manual) Monocytes % (Manual) Metamyelocytes % Myelocytes % Toxic Granulation Platelet Estimate Large Platelets Giant Platelets RBC Morphology Polychromasia Hypochromasia (manual) Poikilocytosis (manual Anisocytosis (manual) Microcytosis (manual) Macrocytosis (manual) [place] Cells PT INR APTT Puncture Site pCO2 pO2 HCO3 ABG pH ABG Total CO2 ABG O2 Saturation ABG Base Excess [place] Test ABG Potassium VBG pH VBG pCO2 VBG HCO3 VBG Total CO2 VBG O2 Sat (Calc) VBG Base Excess VBG Potassium A-a O2 Difference Respiratory Index Sodium 139 Chloride 107 Glucose Lactate Liter Flow FiO2 Inspiratory BiPAP Expiratory BiPAP Crit Value Called To Crit Value Called By Crit Value Read Back Blood Gas Notified Time Potassium 4.3 Carbon Dioxide 15 L Anion Gap 21 H BUN 87 H Creatinine 3.2 H Est GFR ( Amer) 23 Est GFR (Non-Af Amer) 19 POC Glucose (mg/dL) Random Glucose 237 H Hemoglobin A1c Lactic Acid 4.6 H* Calcium 7.4 L Phosphorus Magnesium Total Bilirubin 1.6 H AST 39 ALT 30 Alkaline Phosphatase 64 Total Creatine Kinase CK-MB (Mass) Troponin I NT-Pro-B Natriuret Pep Total Protein 4.8 L Albumin 2.4 L Globulin 2.5 Albumin/Globulin Ratio 1.0 Triglycerides 163 H Cholesterol 83 LDL Cholesterol Direct 33 HDL Cholesterol 14 L Procalcitonin TSH 3rd Generation Arterial Blood Potassium Venous Blood Potassium Urine Color Urine Clarity Urine pH Ur Specific [place] Urine Protein Urine Glucose (UA) Urine Ketones Urine Blood Urine Nitrate Urine Bilirubin Urine Urobilinogen Ur Leukocyte Esterase Urine WBC (Auto) Urine RBC (Auto) Ur Squamous Epith Cells Urine Bacteria Random Vancomycin 6.6 Digoxin Urine Opiates Screen Urine Methadone Screen Ur Barbiturates Screen Ur Phencyclidine Scrn Ur Amphetamines Screen U Benzodiazepines Scrn U Oth Cocaine Metabols U Cannabinoids Screen C. difficile Ag & Toxin Hep Bs Antigen Hep Bs Antibody Hep B Core IgM Ab Hepatitis C Antibody Blood Type Antibody Screen 04/03/18 04/03/18 04/03/18 06:28 06:28 10:24 WBC 19.6 H RBC 3.58 L Hgb 11.3 L Hct 33.2 L MCV 92.7 MCH 31.5 H MCHC 34.0 RDW 14.7 H Plt Count 276 MPV 8.6 Neut % (Auto) 97.0 H Lymph % (Auto) 2.0 L [place] % (Auto) 1.0 Eos % (Auto) 0.0 Baso % (Auto) 0.0 Neut # (Auto) 19.4 H Lymph # (Auto) 0.3 L [place] # (Auto) 0.2 Eos # (Auto) 0.0 Baso # (Auto) 0.0 Neutrophils % (Manual) 86 H Band Neutrophils % 7 H Lymphocytes % (Manual) 2 L Monocytes % (Manual) 3 Metamyelocytes % Myelocytes % 2 H Toxic Granulation Platelet Estimate Normal Large Platelets Giant Platelets RBC Morphology Normal Polychromasia Hypochromasia (manual) Poikilocytosis (manual Anisocytosis (manual) Microcytosis (manual) Macrocytosis (manual) [place] Cells PT INR APTT Puncture Site Lr pCO2 24 L pO2 101 H HCO3 20.3 L ABG pH 7.44 ABG Total CO2 17.0 L ABG O2 Saturation 97.5 ABG Base Excess -6.0 L [place] Test Pos ABG Potassium 3.4 L VBG pH VBG pCO2 VBG HCO3 VBG Total CO2 VBG O2 Sat (Calc) VBG Base Excess VBG Potassium A-a O2 Difference 83.0 Respiratory Index 0.8 Sodium 137.0 Chloride 107.0 Glucose 282 H Lactate 2.8 H Liter Flow FiO2 30.0 Inspiratory BiPAP 15 Expiratory BiPAP 5 Crit Value Called To Crit Value Called By Crit Value Read Back Blood Gas Notified Time Potassium Carbon Dioxide Anion Gap BUN Creatinine Est GFR ( Amer) Est GFR (Non-Af Amer) POC Glucose (mg/dL) Random Glucose Hemoglobin A1c 7.2 H Lactic Acid Calcium Phosphorus Magnesium Total Bilirubin AST ALT Alkaline Phosphatase Total Creatine Kinase CK-MB (Mass) Troponin I NT-Pro-B Natriuret Pep Total Protein Albumin Globulin Albumin/Globulin Ratio Triglycerides Cholesterol LDL Cholesterol Direct HDL Cholesterol Procalcitonin TSH 3rd Generation Arterial Blood Potassium 3.4 L Venous Blood Potassium Urine Color Urine Clarity Urine pH Ur Specific [place] Urine Protein Urine Glucose (UA) Urine Ketones Urine Blood Urine Nitrate Urine Bilirubin Urine Urobilinogen Ur Leukocyte Esterase Urine WBC (Auto) Urine RBC (Auto) Ur Squamous Epith Cells Urine Bacteria Random Vancomycin Digoxin Urine Opiates Screen Urine Methadone Screen Ur Barbiturates Screen Ur Phencyclidine Scrn Ur Amphetamines Screen U Benzodiazepines Scrn U Oth Cocaine Metabols U Cannabinoids Screen C. difficile Ag & Toxin Hep Bs Antigen Hep Bs Antibody Hep B Core IgM Ab Hepatitis C Antibody Blood Type Antibody Screen Assessment & Plan - Assessment and Plan (Free Text) Assessment: Palliative consult There is no Advance directive on chart, PPS 10% I reviewed medical records, all diagnostic studies, examined patient in the bed. Patient looks very sick, lethargic, with eyes closed, easily [id number], responds to painful stimuli. Patient moves upper and lower extremities.Son Troy at bed side. Diminished breath sounds with prolonged expiratory phase. On BiPap. Hypotensive 75/36 on two vasopressors. HR 94 A Fib on Monitor, off Verapamil this morning. Abdomen soft, distended, active bowel sounds. LEs anterior aspect, from knees down are inflamed, raw, red, open ulcers and with faul smell. Maggets noted in the wounds. vanco and Flagyl on bard. Goals of care discussed with clementine Simmons . Troy was very upset with care his brother Rohan provided to the patient. Apparently Rohan agreed to take care of patient in exchange for free housing and food. Per Troy, Rohan did not do a good job , what is obvious and does not want patient to return home. Troy said he discussed his father's current condition with his sister Jessa and they agreed that patient should never return home, but to be discharged to [facility]. Jorge Luis is so angry that his brother rohan, allowed his father to become this sick. Code status discussed. Troy showed good understanding of DNR/DNI as he had experience with his mother in the past. Per Troy, his father would never wanted to be kept alive on life support if meaningful recover was not expected. He discussed this, over the phone, with his sister Jessa who supported decsion on DNR/DNI. JASON completed and signed b patient's son Troy. THis was shared with ICU team and Doctor Elvia Pollack. Impression * Chronically ill male with severe infection of LEs * Sepsis * Difficulties ambulating * Lethargy * SOB * Patient unable to advocate for him self due to condition; son Troy and daughter Afsaneh are advocating for patient * Family under impression that patient was not given needed care at home by their sibling Rohan, and s insisting on Residential placement * Family choose DNR/DNI Suggestion * Patient will need aggressive treatment of infected wounds of LEs, possible surgical debriedement * BiPap for respiratory distress * Promote skin integrity of lower back and sacrum * Discharge planing to [place] for Residential placement * DNR/DNI * Call Elsi [phone], the daughter, when needed Advance planing 45 min
[2018-04-03] MEDS: Sodium Bicarbonate 8.4% 150 MEQ in Dextrose 5% In Water 850 ML IV SCH (13:00)
[2018-04-03] MEDS: (Novolin R) Insulin Human Regular 100 units/ml vial SC SCH ×2 (14:26→18:15)
--- NOTE | 2018-04-03 16:01 | CARD ---
APPROVED REPORT EXAM: Two-dimensional and M-mode echocardiogram with Doppler and color Doppler. Other Information Quality : Technically LimitedRhythm : NSR INDICATION Dizziness and Vertigo Atrial Fibrillation RISK FACTORS Hypertension M-Mode DIMENSIONS RVDd1.95 (2.1-3.2cm)Left Atrium (MM)4.57 (2.5-4.0cm) IVSd1.13 (0.7-1.1cm)Aortic Root3.12 (2.2-3.7cm) LVDd3.63 (4.0-5.6cm)Aortic Cusp Exc.1.95 (1.5-2.0cm) PWd1.17 (0.7-1.1cm)FS (%) 37 % LVDs2.30 (2.0-3.8cm)LVEF (%)67 (>50%) Aortic Valve AoV Peak Fihlvcms921.8cm/Edy Peak GR.10mmHg Mitral Valve MV E Ksdeyihy979.7cm/sMV A Fhggstjs54.4cm/sE/A ratio1.9 TDI E/Lateral E'0.0E/Medial E'0.0 Tricuspid Valve TR Peak Rzdgwzsn404my/sTR Peak Gr.24jcTsAGTK52cxBf <Conclusion> tds. poor window. m mode can not be verified. la is moderately dilated. normal size lv,ra & rv. mild concnetric lvh with lvef of 60-65%. normal diastolic fiilling. sclerotic trileafelt aortic valve. mitral,tv & pv are probably normal. mild tr with normal pulmonary systolic pressures of 23 mm of hg. normal size aortic root. no pericardial effusion.
--- NOTE | 2018-04-03 16:18 | US ---
Right upper quadrant abdominal ultrasound History: Right upper quadrant abdominal pain. Comparison: CT scan dated 04/02/2018 Technique: Real-time sonography was performed through the right upper quadrant of the abdomen. Findings: Limited study secondary to a technically difficult exam. Liver: 17.7 centimeters in length. Increased echogenicity of the hepatic parenchymal cortex suggestive for fatty infiltration versus hepatic parenchymal disease. Clinical correlation. Gallbladder: Cholelithiasis with prominent gallbladder calculus measuring up to 2.3 centimeters at the neck of the gallbladder. Additional gallbladder calculus at the neck of the gallbladder measuring 1.3 centimeters. Normal wall thickness of 2 millimeters. Negative sonographic Keys's sign. Common bile duct measures 4.8 millimeters, within normal limits. Limited visualization of the pancreas. Limited visualization of the aorta and IVC. Right kidney: 12.4 x 5.8 x 5.5 centimeters. No calculi or hydronephrosis. Impression: Limited study secondary to a technically difficult exam. Cholelithiasis. Increased echogenicity of the hepatic parenchymal cortex suggestive for fatty infiltration versus hepatic parenchymal disease. Clinical correlation. Limited visualization of the pancreas, aorta, and IVC.
[2018-04-03] MEDS ORDERED: Dakin's Topical 0.5%-Full Strength (480 ml) TOP ONE (18:00)
--- NOTE | 2018-04-03 20:22 | CP.PCM.PN ---
Subjective - Date & Time of Evaluation Date of Evaluation: 04/03/18 Time of Evaluation: 08:30 - Subjective Subjective: Patient was seen and examined at 8:30 AM 04/03/18 ICU Bed 9 Patient is currently on BiPAP, is arousable but falls back to sleep Answers "NO" to everything. ROS not reliable at this time Exam: General: Asleep but arousable but then falls back to sleep. NOT following commands HEENT: NCA, Pupils are reactive to light, NO lymphadenopathy, NO thyromegaly Cardio: NS1 and NS2, NO M/R/G Resp: CTA B/L, NO R/R/W: exam is limited due to lack of patient participation GI: RUQ/RLQ Pain illicited upon palpation, Central obesity therefore liver and spleen could not be adequately palpated, Soft Ext: Bilateral UE pulses are strong and equal, Bilateral LE pulses could not be palpated, 2+ pitting edema of bilateral LE with erythema/warmth involving the ankles to the mid tibia bilaterally, multiple eschars present bilateral LE, open wound Right Anterior lower leg through which maggots are coming out, maggots also present on the Left Anterior lower leg Neuro: NOT possible at this time Assessment/Plan 1) Severe Sepsis Septic Shock Assessment/Plan * Etiologies: b/l cellulitis over the legs (noted since 2017 available in the EMR) * Admitted to the ICU; further management per ICU * Code sepsis: 04/02/18 in the ED * On admission: hypotensive, temp 94 deg, wbc 52, lactate 3.3 * Consult Infectious Disease, Dr Valdez on board * CT chest/abd/pelvis w/o contrast: dependent atelectasis, mild cariomegaly, small hiatal hernia, subtle hypodensities in gallbladder (mass vs stone), 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, 1.5 cm left renal cyst, postoperative changes from bowel surgery, moderate stool in rectosigmoid colon, few mildly dilated small bowel loops * CT head w/o contrast: chronic microvascular changes, no focal deficit * F/U C.Diff toxin * F/U Blood Cx, urine Cx, wound Cx * F/U Hep panel Medications: * Flagyl 500mg IVP Q8H * Meropenem 500mg IVP Q8H * Vancomycin 500mg PO QID * Vancomycin 1g IV QD * Norepinehprine drip * Vasopressin drip 2) Bilateral Lower Cellulitis Assessment/Plan * patient's legs are edematous, erythematous, and weeping and with maggots ( Dakin's solution ordered and Wound Care Nurse to make further recommendations) * Wound culture ordered of the right leg * Prior hx of cellulitis since 2017 noted in the EMR * F/U xray of LE b/l for consideration of osteomyelitis * Infectious Disease on board * If podiatry consult warranted, please consult Dr. Johnnie Minor/Dr. To who has seen this patient in prior admission 3) Metabolic Encephalopathy Assessment/Plan * Etiology: sepsis, uremia, severe metabolic acidosis * emergent dialysis catheter placed by ICU on 04/02/18 * Nephrology (Dr. Luna) on board-->help appreciated * F/U CT head 4) Acute on Chronic Renal Insufficiency Severe Metabolic Acidosis Hyperkalemia Assessment/Plan * Nephrology (Dr. Luna) on board-->help appreciated * Note: history of nephrolithasis, prior hx of cystoscopy and stent insertion per EMR * In ED, Calcium gluconate 4.65 meq given once, Insulin Regular 10u IV given once, and 2 Liters of IV fluids * Emergent HD through femoral catheter placed by ICU (right groin) on 04/02/18 * Patient is receiving Bicarbonate drip: D5 W with 150 mEQ NaHCO3 at 75 ml/hr 5) Atrial Fibrillation w RVR Assessment/Plan * Cardiology (Dr. Henriquez) on board-->help appreciated * Patient was diagnosed with new onset atrial fibrillation last admission * It is unclear what medications he is taking at home. patient unable to tell us and family does not know * Unknown if he takes anticoagulation or not * Digoxin is < 0.4 04/03/18 * Patient seen and evaluated by Dr. Henriquez last admission and he has been re- consulted * F/U Echo * ASA 81 mg PO 1x/day as CT Head is negative for bleed * Verapamil drip 6) History of colonic polyps History of partial colectecomy Assessment/Plan 7) Prior history of incarcerated hernia and small bowel obstruction Assessment/Plan * Noted in the EMR from patient's last hospitalization with Dr. Ceja who performed the surgery 8) Anemia Secondary to CKD Stage 4 * Monitor HgB/Hct 9) Prophylactic care * Contraindications to SCDS given cellulitis noted on bilateral legs * Heparin 5,000 Units SC Q8H * Wall * F/U Swallow Evaluation * Florastor 250 mg PO 2x/day Spoke with Palliative Care Nurse Alba who spoke with Son Troy (who was not present at time of my exam): made DNR/DNI, POLST completed and in chart, would like patient to be placed in [facility] care and not return home (where is lives with other son). Will speak with Cardiopulmonary Technologist Chief 04/04/18 to get [facility] placement process started. F/U Official Read U/S Abdomen Rocco Pollack D.O. Objective - Vital Signs/Intake and Output Vital Signs (last 24 hours): Temp Pulse Resp BP Pulse Ox 98.2 F 87 14 103/47 L 98 04/03/18 16:00 04/03/18 20:00 04/03/18 20:00 04/03/18 19:48 04/03/18 20:00 Intake and Output: 04/03/18 04/04/18 18:59 06:59 Intake Total 2587.6 97.6 Output Total 965 50 Balance 1622.6 47.6 - Medications Medications: Current Medications Aspirin (Ecotrin) 81 mg PO DAILY [facility] Last Admin: 04/03/18 11:18 Dose: Not Given Dextrose (Dextrose 50% Inj) 0 ml IV STAT PRN; Protocol PRN Reason: Hypoglycemia Protocol Dextrose (Glutose 15) 0 gm PO ONCE PRN; Protocol PRN Reason: Hypoglycemia Protocol Famotidine (Pepcid) 20 mg IVP DAILY [facility] Last Admin: 04/03/18 11:17 Dose: 20 mg Glucagon (Glucagen Diagnostic Kit) 0 mg IM STAT PRN; Protocol PRN Reason: Hypoglycemia Protocol Heparin Sodium (Porcine) (Heparin) 5,000 units SC Q8 [facility] Last Admin: 04/03/18 15:50 Dose: 5,000 units Hydrocortisone Sodium Succinate (Solu-Cortef) 100 mg IV Q8H [facility] Last Admin: 04/03/18 14:00 Dose: 100 mg Meropenem 500 mg/ Sodium (Chloride) 100 mls @ 100 mls/hr IVPB Q8 KARAN PRN Reason: Protocol Last Admin: 04/03/18 14:15 Dose: 100 mls/hr Metronidazole (Flagyl) 500 mg in 100 mls @ 100 mls/hr IVPB Q8 KARAN PRN Reason: Protocol Last Admin: 04/03/18 16:00 Dose: 100 mls/hr Norepinephrine Bitartrate 8 mg (/ Dextrose) 258 mls @ 7.74 mls/hr IV .Q24H PRN ; Protocol; 4 MCG/MIN PRN Reason: TITRATE PER MD ORDER Last Titration: 04/03/18 18:00 Dose: 2 mcg/min, 3.87 mls/hr Amiodarone HCl 900 mg/ (Dextrose) 500 mls @ 16.66 mls/hr IV .Q24H KARAN; 0.5 MG/ MIN PRN Reason: Protocol Stop: 04/03/18 21:30 Last Admin: 04/03/18 03:30 Dose: 16.66 mls/hr Vasopressin 40 units/ Dextrose 40 mls @ 2.4 mls/hr IV .[id number] KARAN PRN Reason: 0.04 UNITS/MIN Last Admin: 04/03/18 15:10 Dose: Not Given Sodium Bicarbonate 150 meq/ (Dextrose) 1,000 mls @ 75 mls/hr IV .[id number] KARAN Last Admin: 04/03/18 13:00 Dose: 75 mls/hr Phenylephrine HCl 30 mg/ (Dextrose) 253 mls @ 10.12 mls/hr IV .Q24H PRN; Protocol; 20 MCG/MIN PRN Reason: TITRATE PER MD ORDER Last Admin: 04/02/18 23:28 Dose: 20 mcg/min, 10.12 mls/hr Verapamil HCl 40 mg/ Sodium (Chloride) 100 mls @ 18.75 mls/hr IV .Q5H20M PRN; Protocol; 7.5 MG/HR PRN Reason: FOR HR Last Admin: 04/03/18 05:24 Dose: 18.75 mls/hr Vancomycin/Sodium Chloride (Vancomycin 1 Gm/Ns 200 Ml) 1 gm in 200 mls @ 133.333 mls/hr IVPB Q48H KARAN PRN Reason: Protocol Dextrose (Dextrose 5% In Water 1000 Ml) 1,000 mls @ 0 mls/hr IV .Q0M PRN; Protocol; Per Protocol PRN Reason: Hypoglycemia Protocol Insulin Human Regular (Novolin R) 0 unit SC ACHS KARAN PRN Reason: Protocol Last Admin: 04/03/18 18:15 Dose: 3 units Saccharomyces Boulardii (Florastor) 250 mg PO Q12 [facility] Last Admin: 04/03/18 10:00 Dose: Not Given Vancomycin HCl (Vancocin (Oral Or Rectal Use)) 500 mg PO QID [facility] PRN Reason: Protocol Last Admin: 04/03/18 18:19 Dose: Not Given - Labs Labs: 04/03/18 06:28 04/03/18 06:23 PT 13.3 SECONDS (9.7-12.2) H 04/02/18 15:25 INR 1.2 04/02/18 15:25 APTT 21 SECONDS (21-34) 04/02/18 15:25
[2018-04-04] MEDS: (Novolin R) Insulin Human Regular 100 units/ml vial SC SCH ×5 (00:19→21:18)
[2018-04-04] MEDS: Sodium Bicarbonate 8.4% 150 MEQ in Dextrose 5% In Water 850 ML IV SCH (01:50)
[2018-04-04] MEDS: Vasopressin 40 UNITS in Dextrose 5% In Water 38 ML IV SCH ×3 (02:05→18:32)
[2018-04-04] MEDS: metroNIDAZOLE IV 500 mg/100 ml 500 MG/100 ML BAG IVPB SCH ×3 (05:03→21:11)
[2018-04-04 05:45] LABS: ABG ALLEN TEST POS; ARTERIAL BLOOD GAS HCO3 25.7 mmol/L (21-28); ARTERIAL BLOOD GAS O2 SAT 97.1 % (95-98); ARTERIAL BLOOD GAS PCO2 32 mm/Hg (35-45); ARTERIAL BLOOD GAS PH 7.48 (7.35-7.45); ARTERIAL BLOOD GAS PO2 98 mm/Hg (80-100); ARTERIAL BLOOD GAS TCO2 24.8 mmol/L (22-28)
[2018-04-04] MEDS: Meropenem 500 MG in Sodium Chloride 0.9% 100 ML IVPB SCH ×3 (06:04→21:10)
[2018-04-04 06:49] LABS: EOS % 0.1 % (0.0-4.0); HEMOGLOBIN 9.6 g/dL (12.0-18.0)
[2018-04-04 07:03] LABS: BASO % 0.1 % (0.0-2.0); LYMPH # 0.3 K/uL (1.0-4.3); LYMPH % 2.1 % (20.0-40.0); MEAN CELL VOLUME 93.1 fL (80.0-94.0); MEAN CORPUSCULAR HEMOGLOBIN 31.1 pg (27.0-31.0); MEAN CORPUSCULAR HGB CONC 33.4 g/dL (33.0-37.0); MEAN PLATELET VOLUME 8.6 fL (7.2-11.7); MONO # 0.4 K/uL (0.0-0.8); MONO % 2.5 % (0.0-10.0); NEUT # 15.5 K/uL (1.8-7.0); NEUT % 95.2 % (50.0-75.0); NRBC % 0.1 % (0.0-2.0); PLATELET COUNT 223 K/uL (130-400); RBC 3.09 Mil/uL (4.40-5.90); RED CELL DISTRIBUTION WIDTH 14.8 % (11.5-14.5); WHITE BLOOD COUNT 16.3 K/uL (4.8-10.8)
[2018-04-04 07:07] LABS: ALB/GLOB RATIO 0.9 (1.0-2.1); ALBUMIN 2.2 g/dL (3.5-5.0); CALCIUM 7.2 mg/dl (8.6-10.4)
[2018-04-04 09:26] LABS: BANDS 7 % (0-2); LYMPHOCYTE 3 % (20-40); MONOCYTE 4 % (0-10); NEUTROPHIL 86 % (50-75); TOTAL CELLS COUNTED 100
[2018-04-04 09:27] LABS: PLATELET ESTIMATE NORMAL (NORMAL)
[2018-04-04 09:28] LABS: HYPOCHROMIC SLIGHT; POLYCHROMIC SLIGHT
[2018-04-04] MEDS ORDERED: Heparin25000 units/250ml 1/2NS 25,000 UNITS/250 ML BAG IV PRN ×2 (09:31→20:45)
[2018-04-04] MEDS: Saccharomyces Boulardi 250 mg Cap PO SCH ×2 (09:56→21:10)
--- NOTE | 2018-04-04 10:44 | VASCLAB ---
PROCEDURE: Lower Extremity Venous Duplex Exam. HISTORY: Lower extremity swelling/ cellulitis PRIORS: Last exam 10/02/2017, normal. TECHNIQUE: Bilateral common femoral, femoral, popliteal and posterior tibial, peroneal and great saphenous veins were evaluated. Flow was assessed with color Doppler, compressibility, assessment of phasic flow and augmentation response. Report prepared by AGGIE Pratt FINDINGS: RIGHT: 1. Common Femoral Vein: 1.1. Compressibility - Unable to examine due to lines in the groin. 2. Femoral Vein: (proximal view only) catheter at mid to distal thigh areas. 2.1. Compressibility - Fully compressible: Thrombus - None : Flow - Phasic: Augmentation -Normal: Reflux - None. 3. Popliteal Vein: 3.1. Compressibility - Fully compressible: Thrombus - None : Flow - Phasic: Augmentation -Normal: Reflux - None. 4. Posterior Tibial Vein: 4.1. Not well visualized due to swelling. 5. Peroneal Vein: 5.1. Not well visualized due to swelling. LEFT: 1. Common Femoral Vein: 1.1. Compressibility - Fully compressible: Thrombus - None: Flow - Phasic: Augmentation -Normal: Reflux - None. 2. Femoral Vein: (proximal to mid views only) due to swelling. 2.1. Compressibility - Fully compressible: Thrombus - None: Flow - Phasic: Augmentation -Normal: Reflux - None. 3. Popliteal Vein: 3.1. Compressibility - Fully compressible: Thrombus - None : Flow - Phasic: Augmentation -Normal: Reflux - None. 4. Posterior Tibial Vein: 4.1. Not well visualized due to swelling. 5. Peroneal Vein: 5.1. Not well visualized due to swelling. OTHER FINDINGS: Limited study due to edema and patient limited positioning. IMPRESSION: Right: Compressible right proximal femoral and popliteal veins. Left: Compressible left common femoral, proximal and mid femoral, and popliteal veins.
--- NOTE | 2018-04-04 11:19 | CP.CCUPN ---
<Terri Mc - Last Filed: 04/04/18 11:14> CCU Subjective - Physician Review Subjective (Free Text): Patient is seen and examined at bedside. Patient is more awake, alert, and oriented than yesterday. Today is saturating fine on nasal cannula. Patient is pending swallow eval to start diet. CCU Objective - Vital Signs / Intake & Output Vital Signs (Last 4 hours): Vital Signs Temp Pulse Pulse Resp BP BP Pulse Ox 04/04/18 10:55 102/45 L 04/04/18 10:40 93/46 L 04/04/18 10:25 106/54 L 04/04/18 10:10 111/55 L 04/04/18 09:55 119/52 L 04/04/18 09:40 108/50 L 04/04/18 09:25 98 F 86 17 126/48 L 99 04/04/18 09:20 98 F 86 17 139/106 H 04/04/18 07:18 97 H 14 114/55 L 99 Intake and Output (Last 8hrs): Intake & Output 04/03/18 04/04/18 04/04/18 22:59 06:59 14:59 Intake Total 1094.7 712.1 94.0 Output Total 545 490 50 Balance 549.7 222.1 44.0 Weight 239 lb Intake: IV 109.7 12.3 Intake, IV Amount 985.0 699.8 94.0 LEFT FA Y 200 Left Forearm 132.8 116.2 Left Hand 16.6 16.6 RIGHT FEM. Y 19.2 16.8 2.4 Right Femoral 33.0 25.2 Right Forearm 600 525 75 Oral 0 0 0 Output: Urine 545 490 50 Urethral (Wall) 545 490 50 Other: # Bowel Movements 1 1 - Physical Exam Head: Positive for: Atraumatic, Normocephalic Pupils: Positive for: PERRL Extroacular Muscles: Positive for: EOMI Conjunctiva: Positive for: Normal Mouth: Positive for: Dry Neck: Positive for: Normal Range of Motion Respiratory/Chest: Positive for: Clear to Auscultation. Negative for: Decreased Breath Sounds Cardiovascular: Positive for: Tachycardic Abdomen: Positive for: Distention, Normal Bowel Sounds Upper Extremity: Positive for: Normal Inspection, NORMAL PULSES, Neurovascularly Intact Lower Extremity: Positive for: CALF TENDERNESS, Tenderness, Swelling, Erythema, Other (severe cellulitis noted bilateral lower extremities with eschar noted on heels, fungus. Open wounds on superior and lateral aspects of shins. Currently wrapped by wound care. ) Neurological: Positive for: GCS=15, CN II-XII Intact Skin: Positive for: Warm, Dry Psychiatric: Positive for: Alert - Medications Active Medications: Active Medications Generic Name Dose Route Start Last Admin Trade Name Freq PRN Reason Stop Dose Admin Amiodarone HCl 200 mg 04/04/18 11:00 Cordarone PO Q12 KARAN Aspirin 81 mg 04/03/18 10:00 04/04/18 10:06 Ecotrin PO 81 mg DAILY KARAN Administration Dextrose 0 ml 04/03/18 12:00 Dextrose 50% Inj IV STAT PRN Hypoglycemia Protocol Protocol Dextrose 0 gm 04/03/18 12:00 Glutose 15 PO ONCE PRN Hypoglycemia Protocol Protocol Famotidine 20 mg 04/03/18 10:00 04/04/18 10:10 Pepcid IVP 20 mg DAILY KARAN Administration Glucagon 0 mg 04/03/18 12:00 Glucagen Diagnostic Kit IM STAT PRN Hypoglycemia Protocol Protocol Hydrocortisone Sodium Succinate 100 mg 04/02/18 22:00 04/04/18 06:03 Solu-Cortef IV 100 mg Q8H KARAN Administration Meropenem 500 mg/ Sodium 100 mls @ 100 mls/hr 04/03/18 06:00 04/04/18 06:04 Chloride IVPB 100 mls/hr Q8 KARAN Administration Protocol Metronidazole 500 mg in 100 mls @ 100 mls/hr 04/02/18 22:00 04/04/18 05:03 Flagyl IVPB 100 mls/hr Q8 KARAN Administration Protocol Vasopressin 40 units/ Dextrose 40 mls @ 2.4 mls/hr 04/02/18 22:30 04/04/18 02 :05 IV 2.4 mls/hr .[id number] KARAN Administration 0.04 UNITS/MIN Sodium Bicarbonate 150 meq/ 1,000 mls @ 75 mls/hr 04/02/18 22:45 04/04/18 01: 50 Dextrose IV 75 mls/hr .[id number] KARAN Administration Vancomycin/Sodium Chloride 1 gm in 200 mls @ 133.333 mls/hr 04/05/18 08:30 Vancomycin 1 Gm/Ns 200 Ml IVPB Q48H KARAN Protocol Dextrose 1,000 mls @ 0 mls/hr 04/03/18 12:00 Dextrose 5% In Water 1000 Ml IV .Q0M PRN Hypoglycemia Protocol Protocol Per Protocol Potassium Chloride 20 meq in 100 mls @ 50 mls/hr 04/04/18 11:00 Potassium Chloride 20 Meq/100 Ml IVPB 04/04/18 12:59 ONCE ONE Heparin Sodium/Sodium Chloride 25,000 units in 250 mls @ 13.009 mls/hr 09:31 Heparin 44962 Units/250ml 1/2 Normal Saline IV .[id number] PRN PROTOCOL Protocol 12 UNITS/KG/HR Insulin Human Regular 0 unit 04/03/18 14:15 04/04/18 00:19 Novolin R SC Not Given ACHS [facility] Protocol Saccharomyces Boulardii 250 mg 04/03/18 10:00 04/04/18 09:56 Florastor PO 250 mg Q12 [facility] Administration - Patient Studies Lab Studies: Microbiology Studies 04/02/18 18:51 MRSA Culture (Admit) - Final Naris MRSA NOT DETECTED 04/02/18 15:50 Gram Stain - Final Blood 04/02/18 15:00 Gram Stain - Final Blood 04/02/18 18:51 Gram Stain - Final Leg - Right Wound Culture - Preliminary Gram Negative Rafa Lab Studies 04/04/18 04/04/18 04/04/18 Range/Units 06:32 06:20 06:20 WBC 16.3 H (4.8-10.8) K/uL RBC 3.09 L (4.40-5.90) Mil/uL Hgb 9.6 L (12.0-18.0) g/dL Hct 28.8 L (35.0-51.0) % MCV 93.1 (80.0-94.0) fL MCH 31.1 H (27.0-31.0) pg MCHC 33.4 (33.0-37.0) g/dL RDW 14.8 H (11.5-14.5) % Plt Count 223 (130-400) K/uL MPV 8.6 (7.2-11.7) fL Neut % (Auto) 95.2 H (50.0-75.0) % Lymph % (Auto) 2.1 L (20.0-40.0) % [place] % (Auto) 2.5 (0.0-10.0) % Eos % (Auto) 0.1 (0.0-4.0) % Baso % (Auto) 0.1 (0.0-2.0) % Neut # (Auto) 15.5 H (1.8-7.0) K/uL Lymph # (Auto) 0.3 L (1.0-4.3) K/uL [place] # (Auto) 0.4 (0.0-0.8) K/uL Eos # (Auto) 0.0 (0.0-0.7) K/uL Baso # (Auto) 0.0 (0.0-0.2) K/uL Neutrophils % (Manual) 86 H (50-75) % Band Neutrophils % 7 H (0-2) % Lymphocytes % (Manual) 3 L (20-40) % Monocytes % (Manual) 4 (0-10) % Platelet Estimate Normal (NORMAL) Polychromasia Slight Hypochromasia (manual) Slight Smear Path Review Puncture Site pCO2 (35-45) mm/Hg pO2 (80-100) mm/Hg HCO3 (21-28) mmol/L ABG pH (7.35-7.45) ABG Total CO2 (22-28) mmol/L ABG O2 Saturation (95-98) % ABG Base Excess (-2.0-3.0) mmol/L [place] Test ABG Potassium (3.6-5.2) mmol/L A-a O2 Difference mm/Hg Respiratory Index Sodium 138 (132-148) mmol/l Chloride 104 (98-107) mmol/L Glucose (75-110) mg/dl Lactate (0.7-2.1) mmol/L Vent Mode FiO2 % Inspiratory BiPAP Expiratory BiPAP Potassium 3.0 L (3.6-5.2) mmol/L Carbon Dioxide 23 (22-30) mmol/L Anion Gap 14 (10-20) BUN 94 H (9-20) mg/dL Creatinine 2.9 H (0.8-1.5) mg/dL Est GFR ( Amer) 26 Est GFR (Non-Af Amer) 21 POC Glucose (mg/dL) (65-110) mg/dL Random Glucose 239 H (75-110) mg/dL Lactic Acid (0.7-2.1) mmol/L Calcium 7.2 L (8.6-10.4) mg/dl Phosphorus 4.9 H (2.5-4.5) mg/dL Magnesium 2.3 (1.6-2.3) mg/dL Total Bilirubin 0.8 (0.2-1.3) mg/dL AST 28 (17-59) U/L ALT 27 (21-72) U/L Alkaline Phosphatase 55 (38-126) U/L Total Protein 4.5 L (6.3-8.3) g/dL Albumin 2.2 L (3.5-5.0) g/dL Globulin 2.3 (2.2-3.9) gm/dL Albumin/Globulin Ratio 0.9 L (1.0-2.1) Free T4 (0.78-2.19) ng/dL TSH 3rd Generation (0.46-4.68) mIU/L Arterial Blood Potassium (3.6-5.2) mmol/L Vancomycin Trough (5.0-10.0) ug/mL Random Vancomycin 12.0 ug/mL C. difficile Ag & Toxin (NEGATIVE) 04/04/18 04/04/18 04/03/18 Range/Units 05:17 00:02 19:27 WBC (4.8-10.8) K/uL RBC (4.40-5.90) Mil/uL Hgb (12.0-18.0) g/dL Hct (35.0-51.0) % MCV (80.0-94.0) fL MCH (27.0-31.0) pg MCHC (33.0-37.0) g/dL RDW (11.5-14.5) % Plt Count (130-400) K/uL MPV (7.2-11.7) fL Neut % (Auto) (50.0-75.0) % Lymph % (Auto) (20.0-40.0) % [place] % (Auto) (0.0-10.0) % Eos % (Auto) (0.0-4.0) % Baso % (Auto) (0.0-2.0) % Neut # (Auto) (1.8-7.0) K/uL Lymph # (Auto) (1.0-4.3) K/uL [place] # (Auto) (0.0-0.8) K/uL Eos # (Auto) (0.0-0.7) K/uL Baso # (Auto) (0.0-0.2) K/uL Neutrophils % (Manual) (50-75) % Band Neutrophils % (0-2) % Lymphocytes % (Manual) (20-40) % Monocytes % (Manual) (0-10) % Platelet Estimate (NORMAL) Polychromasia Hypochromasia (manual) Smear Path Review Puncture Site Rr pCO2 32 L (35-45) mm/Hg pO2 98 (80-100) mm/Hg HCO3 25.7 (21-28) mmol/L ABG pH 7.48 H (7.35-7.45) ABG Total CO2 24.8 (22-28) mmol/L ABG O2 Saturation 97.1 (95-98) % ABG Base Excess 0.9 (-2.0-3.0) mmol/L [place] Test Pos ABG Potassium 2.7 L (3.6-5.2) mmol/L A-a O2 Difference 76.0 mm/Hg Respiratory Index 0.8 Sodium 136.0 (132-148) mmol/l Chloride 106.0 (98-107) mmol/L Glucose 259 H (75-110) mg/dl Lactate 1.5 (0.7-2.1) mmol/L Vent Mode Bipap FiO2 30.0 % Inspiratory BiPAP 10 Expiratory BiPAP 5 Potassium (3.6-5.2) mmol/L Carbon Dioxide (22-30) mmol/L Anion Gap (10-20) BUN (9-20) mg/dL Creatinine (0.8-1.5) mg/dL Est GFR ( Amer) Est GFR (Non-Af Amer) POC Glucose (mg/dL) 267 H (65-110) mg/dL Random Glucose (75-110) mg/dL Lactic Acid 3.3 H (0.7-2.1) mmol/L Calcium (8.6-10.4) mg/dl Phosphorus (2.5-4.5) mg/dL Magnesium (1.6-2.3) mg/dL Total Bilirubin (0.2-1.3) mg/dL AST (17-59) U/L ALT (21-72) U/L Alkaline Phosphatase (38-126) U/L Total Protein (6.3-8.3) g/dL Albumin (3.5-5.0) g/dL Globulin (2.2-3.9) gm/dL Albumin/Globulin Ratio (1.0-2.1) Free T4 (0.78-2.19) ng/dL TSH 3rd Generation (0.46-4.68) mIU/L Arterial Blood Potassium 2.7 L (3.6-5.2) mmol/L Vancomycin Trough (5.0-10.0) ug/mL Random Vancomycin ug/mL C. difficile Ag & Toxin (NEGATIVE) 04/03/18 04/03/18 04/03/18 Range/Units 19:27 17:42 17:31 WBC (4.8-10.8) K/uL RBC (4.40-5.90) Mil/uL Hgb (12.0-18.0) g/dL Hct (35.0-51.0) % MCV (80.0-94.0) fL MCH (27.0-31.0) pg MCHC (33.0-37.0) g/dL RDW (11.5-14.5) % Plt Count (130-400) K/uL MPV (7.2-11.7) fL Neut % (Auto) (50.0-75.0) % Lymph % (Auto) (20.0-40.0) % [place] % (Auto) (0.0-10.0) % Eos % (Auto) (0.0-4.0) % Baso % (Auto) (0.0-2.0) % Neut # (Auto) (1.8-7.0) K/uL Lymph # (Auto) (1.0-4.3) K/uL [place] # (Auto) (0.0-0.8) K/uL Eos # (Auto) (0.0-0.7) K/uL Baso # (Auto) (0.0-0.2) K/uL Neutrophils % (Manual) (50-75) % Band Neutrophils % (0-2) % Lymphocytes % (Manual) (20-40) % Monocytes % (Manual) (0-10) % Platelet Estimate (NORMAL) Polychromasia Hypochromasia (manual) Smear Path Review Puncture Site pCO2 (35-45) mm/Hg pO2 (80-100) mm/Hg HCO3 (21-28) mmol/L ABG pH (7.35-7.45) ABG Total CO2 (22-28) mmol/L ABG O2 Saturation (95-98) % ABG Base Excess (-2.0-3.0) mmol/L [place] Test ABG Potassium (3.6-5.2) mmol/L A-a O2 Difference mm/Hg Respiratory Index Sodium (132-148) mmol/l Chloride (98-107) mmol/L Glucose (75-110) mg/dl Lactate (0.7-2.1) mmol/L Vent Mode FiO2 % Inspiratory BiPAP Expiratory BiPAP Potassium (3.6-5.2) mmol/L Carbon Dioxide (22-30) mmol/L Anion Gap (10-20) BUN (9-20) mg/dL Creatinine (0.8-1.5) mg/dL Est GFR ( Amer) Est GFR (Non-Af Amer) POC Glucose (mg/dL) 260 H (65-110) mg/dL Random Glucose (75-110) mg/dL Lactic Acid (0.7-2.1) mmol/L Calcium (8.6-10.4) mg/dl Phosphorus (2.5-4.5) mg/dL Magnesium (1.6-2.3) mg/dL Total Bilirubin (0.2-1.3) mg/dL AST (17-59) U/L ALT (21-72) U/L Alkaline Phosphatase (38-126) U/L Total Protein (6.3-8.3) g/dL Albumin (3.5-5.0) g/dL Globulin (2.2-3.9) gm/dL Albumin/Globulin Ratio (1.0-2.1) Free T4 (0.78-2.19) ng/dL TSH 3rd Generation 1.57 (0.46-4.68) mIU/L Arterial Blood Potassium (3.6-5.2) mmol/L Vancomycin Trough 14.0 H (5.0-10.0) ug/mL Random Vancomycin ug/mL C. difficile Ag & Toxin (NEGATIVE) 04/03/18 04/03/18 04/02/18 Range/Units 17:30 12:37 19:46 WBC (4.8-10.8) K/uL RBC (4.40-5.90) Mil/uL Hgb (12.0-18.0) g/dL Hct (35.0-51.0) % MCV (80.0-94.0) fL MCH (27.0-31.0) pg MCHC (33.0-37.0) g/dL RDW (11.5-14.5) % Plt Count (130-400) K/uL MPV (7.2-11.7) fL Neut % (Auto) (50.0-75.0) % Lymph % (Auto) (20.0-40.0) % [place] % (Auto) (0.0-10.0) % Eos % (Auto) (0.0-4.0) % Baso % (Auto) (0.0-2.0) % Neut # (Auto) (1.8-7.0) K/uL Lymph # (Auto) (1.0-4.3) K/uL [place] # (Auto) (0.0-0.8) K/uL Eos # (Auto) (0.0-0.7) K/uL Baso # (Auto) (0.0-0.2) K/uL Neutrophils % (Manual) (50-75) % Band Neutrophils % (0-2) % Lymphocytes % (Manual) (20-40) % Monocytes % (Manual) (0-10) % Platelet Estimate (NORMAL) Polychromasia Hypochromasia (manual) Smear Path Review Puncture Site pCO2 (35-45) mm/Hg pO2 (80-100) mm/Hg HCO3 (21-28) mmol/L ABG pH (7.35-7.45) ABG Total CO2 (22-28) mmol/L ABG O2 Saturation (95-98) % ABG Base Excess (-2.0-3.0) mmol/L [place] Test ABG Potassium (3.6-5.2) mmol/L A-a O2 Difference mm/Hg Respiratory Index Sodium (132-148) mmol/l Chloride (98-107) mmol/L Glucose (75-110) mg/dl Lactate (0.7-2.1) mmol/L Vent Mode FiO2 % Inspiratory BiPAP Expiratory BiPAP Potassium (3.6-5.2) mmol/L Carbon Dioxide (22-30) mmol/L Anion Gap (10-20) BUN (9-20) mg/dL Creatinine (0.8-1.5) mg/dL Est GFR ( Amer) Est GFR (Non-Af Amer) POC Glucose (mg/dL) 286 H (65-110) mg/dL Random Glucose (75-110) mg/dL Lactic Acid (0.7-2.1) mmol/L Calcium (8.6-10.4) mg/dl Phosphorus (2.5-4.5) mg/dL Magnesium (1.6-2.3) mg/dL Total Bilirubin (0.2-1.3) mg/dL AST (17-59) U/L ALT (21-72) U/L Alkaline Phosphatase (38-126) U/L Total Protein (6.3-8.3) g/dL Albumin (3.5-5.0) g/dL Globulin (2.2-3.9) gm/dL Albumin/Globulin Ratio (1.0-2.1) Free T4 1.35 (0.78-2.19) ng/dL TSH 3rd Generation (0.46-4.68) mIU/L Arterial Blood Potassium (3.6-5.2) mmol/L Vancomycin Trough (5.0-10.0) ug/mL Random Vancomycin ug/mL C. difficile Ag & Toxin Negative (NEGATIVE) 04/02/18 04/02/18 Range/Units 15:25 15:03 WBC (4.8-10.8) K/uL RBC (4.40-5.90) Mil/uL Hgb (12.0-18.0) g/dL Hct (35.0-51.0) % MCV (80.0-94.0) fL MCH (27.0-31.0) pg MCHC (33.0-37.0) g/dL RDW (11.5-14.5) % Plt Count (130-400) K/uL MPV (7.2-11.7) fL Neut % (Auto) (50.0-75.0) % Lymph % (Auto) (20.0-40.0) % [place] % (Auto) (0.0-10.0) % Eos % (Auto) (0.0-4.0) % Baso % (Auto) (0.0-2.0) % Neut # (Auto) (1.8-7.0) K/uL Lymph # (Auto) (1.0-4.3) K/uL [place] # (Auto) (0.0-0.8) K/uL Eos # (Auto) (0.0-0.7) K/uL Baso # (Auto) (0.0-0.2) K/uL Neutrophils % (Manual) (50-75) % Band Neutrophils % (0-2) % Lymphocytes % (Manual) (20-40) % Monocytes % (Manual) (0-10) % Platelet Estimate (NORMAL) Polychromasia Hypochromasia (manual) Smear Path Review Puncture Site pCO2 (35-45) mm/Hg pO2 (80-100) mm/Hg HCO3 (21-28) mmol/L ABG pH (7.35-7.45) ABG Total CO2 (22-28) mmol/L ABG O2 Saturation (95-98) % ABG Base Excess (-2.0-3.0) mmol/L [place] Test ABG Potassium (3.6-5.2) mmol/L A-a O2 Difference mm/Hg Respiratory Index Sodium (132-148) mmol/l Chloride (98-107) mmol/L Glucose (75-110) mg/dl Lactate (0.7-2.1) mmol/L Vent Mode FiO2 % Inspiratory BiPAP Expiratory BiPAP Potassium (3.6-5.2) mmol/L Carbon Dioxide (22-30) mmol/L Anion Gap (10-20) BUN (9-20) mg/dL Creatinine (0.8-1.5) mg/dL Est GFR ( Amer) Est GFR (Non-Af Amer) POC Glucose (mg/dL) 244 H (65-110) mg/dL Random Glucose (75-110) mg/dL Lactic Acid (0.7-2.1) mmol/L Calcium (8.6-10.4) mg/dl Phosphorus (2.5-4.5) mg/dL Magnesium (1.6-2.3) mg/dL Total Bilirubin (0.2-1.3) mg/dL AST (17-59) U/L ALT (21-72) U/L Alkaline Phosphatase (38-126) U/L Total Protein (6.3-8.3) g/dL Albumin (3.5-5.0) g/dL Globulin (2.2-3.9) gm/dL Albumin/Globulin Ratio (1.0-2.1) Free T4 (0.78-2.19) ng/dL TSH 3rd Generation (0.46-4.68) mIU/L Arterial Blood Potassium (3.6-5.2) mmol/L Vancomycin Trough (5.0-10.0) ug/mL Random Vancomycin ug/mL C. difficile Ag & Toxin (NEGATIVE) Laboratory Results - last 24 hr 04/02/18 04/02/18 04/02/18 15:03 15:25 19:46 WBC RBC Hgb Hct MCV MCH MCHC RDW Plt Count MPV Neut % (Auto) Lymph % (Auto) [place] % (Auto) Eos % (Auto) Baso % (Auto) Neut # (Auto) Lymph # (Auto) [place] # (Auto) Eos # (Auto) Baso # (Auto) Neutrophils % (Manual) Band Neutrophils % Lymphocytes % (Manual) Monocytes % (Manual) Platelet Estimate Polychromasia Hypochromasia (manual) Smear Path Review Puncture Site pCO2 pO2 HCO3 ABG pH ABG Total CO2 ABG O2 Saturation ABG Base Excess [place] Test ABG Potassium A-a O2 Difference Respiratory Index Sodium Chloride Glucose Lactate Vent Mode FiO2 Inspiratory BiPAP Expiratory BiPAP Potassium Carbon Dioxide Anion Gap BUN Creatinine Est GFR ( Amer) Est GFR (Non-Af Amer) POC Glucose (mg/dL) 244 H Random Glucose Lactic Acid Calcium Phosphorus Magnesium Total Bilirubin AST ALT Alkaline Phosphatase Total Protein Albumin Globulin Albumin/Globulin Ratio Free T4 TSH 3rd Generation Arterial Blood Potassium Vancomycin Trough Random Vancomycin C. difficile Ag & Toxin Negative 04/03/18 04/03/18 04/03/18 12:37 17:30 17:31 WBC RBC Hgb Hct MCV MCH MCHC RDW Plt Count MPV Neut % (Auto) Lymph % (Auto) [place] % (Auto) Eos % (Auto) Baso % (Auto) Neut # (Auto) Lymph # (Auto) [place] # (Auto) Eos # (Auto) Baso # (Auto) Neutrophils % (Manual) Band Neutrophils % Lymphocytes % (Manual) Monocytes % (Manual) Platelet Estimate Polychromasia Hypochromasia (manual) Smear Path Review Puncture Site pCO2 pO2 HCO3 ABG pH ABG Total CO2 ABG O2 Saturation ABG Base Excess [place] Test ABG Potassium A-a O2 Difference Respiratory Index Sodium Chloride Glucose Lactate Vent Mode FiO2 Inspiratory BiPAP Expiratory BiPAP Potassium Carbon Dioxide Anion Gap BUN Creatinine Est GFR ( Amer) Est GFR (Non-Af Amer) POC Glucose (mg/dL) 286 H Random Glucose Lactic Acid Calcium Phosphorus Magnesium Total Bilirubin AST ALT Alkaline Phosphatase Total Protein Albumin Globulin Albumin/Globulin Ratio Free T4 1.35 TSH 3rd Generation 1.57 Arterial Blood Potassium Vancomycin Trough Random Vancomycin C. difficile Ag & Toxin 04/03/18 04/03/18 04/03/18 17:42 19:27 19:27 WBC RBC Hgb Hct MCV MCH MCHC RDW Plt Count MPV Neut % (Auto) Lymph % (Auto) [place] % (Auto) Eos % (Auto) Baso % (Auto) Neut # (Auto) Lymph # (Auto) [place] # (Auto) Eos # (Auto) Baso # (Auto) Neutrophils % (Manual) Band Neutrophils % Lymphocytes % (Manual) Monocytes % (Manual) Platelet Estimate Polychromasia Hypochromasia (manual) Smear Path Review Puncture Site pCO2 pO2 HCO3 ABG pH ABG Total CO2 ABG O2 Saturation ABG Base Excess [place] Test ABG Potassium A-a O2 Difference Respiratory Index Sodium Chloride Glucose Lactate Vent Mode FiO2 Inspiratory BiPAP Expiratory BiPAP Potassium Carbon Dioxide Anion Gap BUN Creatinine Est GFR ( Amer) Est GFR (Non-Af Amer) POC Glucose (mg/dL) 260 H Random Glucose Lactic Acid 3.3 H Calcium Phosphorus Magnesium Total Bilirubin AST ALT Alkaline Phosphatase Total Protein Albumin Globulin Albumin/Globulin Ratio Free T4 TSH 3rd Generation Arterial Blood Potassium Vancomycin Trough 14.0 H Random Vancomycin C. difficile Ag & Toxin 04/04/18 04/04/18 04/04/18 00:02 05:17 06:20 WBC RBC Hgb Hct MCV MCH MCHC RDW Plt Count MPV Neut % (Auto) Lymph % (Auto) [place] % (Auto) Eos % (Auto) Baso % (Auto) Neut # (Auto) Lymph # (Auto) [place] # (Auto) Eos # (Auto) Baso # (Auto) Neutrophils % (Manual) Band Neutrophils % Lymphocytes % (Manual) Monocytes % (Manual) Platelet Estimate Polychromasia Hypochromasia (manual) Smear Path Review Puncture Site Rr pCO2 32 L pO2 98 HCO3 25.7 ABG pH 7.48 H ABG Total CO2 24.8 ABG O2 Saturation 97.1 ABG Base Excess 0.9 [place] Test Pos ABG Potassium 2.7 L A-a O2 Difference 76.0 Respiratory Index 0.8 Sodium 136.0 138 Chloride 106.0 104 Glucose 259 H Lactate 1.5 Vent Mode Bipap FiO2 30.0 Inspiratory BiPAP 10 Expiratory BiPAP 5 Potassium 3.0 L Carbon Dioxide 23 Anion Gap 14 BUN 94 H Creatinine 2.9 H Est GFR ( Amer) 26 Est GFR (Non-Af Amer) 21 POC Glucose (mg/dL) 267 H Random Glucose 239 H Lactic Acid Calcium 7.2 L Phosphorus 4.9 H Magnesium 2.3 Total Bilirubin 0.8 AST 28 ALT 27 Alkaline Phosphatase 55 Total Protein 4.5 L Albumin 2.2 L Globulin 2.3 Albumin/Globulin Ratio 0.9 L Free T4 TSH 3rd Generation Arterial Blood Potassium 2.7 L Vancomycin Trough Random Vancomycin C. difficile Ag & Toxin 04/04/18 04/04/18 06:20 06:32 WBC 16.3 H RBC 3.09 L Hgb 9.6 L Hct 28.8 L MCV 93.1 MCH 31.1 H MCHC 33.4 RDW 14.8 H Plt Count 223 MPV 8.6 Neut % (Auto) 95.2 H Lymph % (Auto) 2.1 L [place] % (Auto) 2.5 Eos % (Auto) 0.1 Baso % (Auto) 0.1 Neut # (Auto) 15.5 H Lymph # (Auto) 0.3 L [place] # (Auto) 0.4 Eos # (Auto) 0.0 Baso # (Auto) 0.0 Neutrophils % (Manual) 86 H Band Neutrophils % 7 H Lymphocytes % (Manual) 3 L Monocytes % (Manual) 4 Platelet Estimate Normal Polychromasia Slight Hypochromasia (manual) Slight Smear Path Review Puncture Site pCO2 pO2 HCO3 ABG pH ABG Total CO2 ABG O2 Saturation ABG Base Excess [place] Test ABG Potassium A-a O2 Difference Respiratory Index Sodium Chloride Glucose Lactate Vent Mode FiO2 Inspiratory BiPAP Expiratory BiPAP Potassium Carbon Dioxide Anion Gap BUN Creatinine Est GFR ( Amer) Est GFR (Non-Af Amer) POC Glucose (mg/dL) Random Glucose Lactic Acid Calcium Phosphorus Magnesium Total Bilirubin AST ALT Alkaline Phosphatase Total Protein Albumin Globulin Albumin/Globulin Ratio Free T4 TSH 3rd Generation Arterial Blood Potassium Vancomycin Trough Random Vancomycin 12.0 C. difficile Ag & Toxin Fingerstick Blood Sugar Results: 267 Critical Care Progress Note - Nutrition Nutrition: Nutrition Category Date Time Status NPO Diet [DIET] Diets 04/03/18 Breakfast Active Assessment/Plan - Assessment and Plan (Free Text) Assessment: This is a 72 year old male with PMHx of arthritis, history of colon polyps, kidney stones, renal insufficiency, glaucoma s/p partial colectomy brought by EMS as aptient fell out of his chair. Admitted for severe sepsis, septic shock 2 /2 bilateral lower extremity cellulitis, metabolic encephalopathy 2/2 ARF ( severe metabolic acidosis and uremia), and atrial fibrillation with RVR. Plan: Neuro: GCS: 12 (E3, V4, M5) A: AMS - Head CT - negative A: Metabolic Encephalopathy - Likely 2/2 uremia and severe metabolic acidosis from ARF Cardio: A: New Onset Atrial Fibrillation with RVR - Was given digoxin, verapamil - Currently on off amio and verapamil drip - now Amio 200mg PO Q12 - TSH, Free T4 - WNL - ECHO: LVEF 60-65%, LVH, sclerotic trileaflet aortic valve. A: Hypotension - Currently on Vaso GI: A: Diarrhea - Started on vanco, flagyl - Cdiff negative, stool studies pending A: Cholelithiasis - CT chest/ab/pel: No evidence of pneumonia or empyema. Possible cholelithiasis. Correlate with ultrasound examination. Status post subtotal colectomy. Mural thickening of small bowel loops in the right lower quadrant. Nonspecific finding. Small hiatal hernia. Bilateral gynecomastia. Stable left adrenal adenoma. Small left renal cortical cyst. - Abdominal US: Cholelithiasis with prominent gallbladder calculus up to 2.3 cm at the neck of the gallbladde, additional calculus at the neck of the gallbladder measuring 1.3 cm. CBD 4.8mm. - T. bili now 0.8 A: Hx of Colon CA s/p subtotal colectomy? Endo: A: T2DM - Accuchecks, ISS - A1C 7.2 Renal: A: Acute Renal Failure with severe metabolic acidosis, hyperkalemia -- Dr. Luna consulted - Right Shiley placed 04/02 - Received dialysis 04/02 - Started on Bicarb drip @ 75cc/hr - Now HD TTS ID: A: Septic Shock -- ID consulted, Dr. Valdez -- Wound Care - 2/2 bilateral lower extremity cellulitis and ?? CDiff - Started on Meropenem, Flagyl, and Vanco Q48H 04/02/18, vanco trough 14 - Concern for Toxic shock syndrome - Louis cultured, stool studies A: Bilateral Lower Extremity Cellulitis - Venous dopplers ordered - NEGATIVE FOR DVT - Xray to rule out osteo Prophylaxis: - Pepcid - SCDs c/i, Heparin Q8H - Florastor started - PT/ OT- once patient is more stable - POLST form filled out: Patient is DNR/DNI - Consent: Son Troy Bowden, , [place] "[place]ls[place]" [phone] Mike, Terri Mc DO, PGY-1 <Ryan Mike - Last Filed: 04/04/18 18:09> CCU Objective - Vital Signs / Intake & Output Vital Signs (Last 4 hours): Vital Signs Temp Pulse Resp BP Pulse Ox 04/04/18 16:33 92 H 17 100/50 L 100 04/04/18 16:19 88 18 85/26 L 98 04/04/18 16:04 81 16 97/42 L 99 04/04/18 16:00 97.9 F 95 H 15 98 04/04/18 15:48 81 14 106/54 L 100 04/04/18 15:33 86 16 109/61 91 L 04/04/18 15:18 90 16 100/62 04/04/18 15:03 86 16 99/53 L 04/04/18 15:00 101 H 18 04/04/18 14:49 95 H 20 92/50 L 04/04/18 14:33 84 15 102/50 L 99 04/04/18 14:18 98 H 20 98/48 L 97 Intake and Output (Last 8hrs): Intake & Output 04/04/18 04/04/18 04/04/18 06:59 14:59 22:59 Intake Total 712.1 1546.0 266.2 Output Total 490 355 110 Balance 222.1 1191.0 156.2 Weight 239 lb Intake: IV 12.3 Intake, IV Amount 699.8 926.0 146.2 Left Forearm 116.2 Left Hand 16.6 79.4 39 RIGHT FEM. Y 16.8 21.6 7.2 Right Fem. PB 300 100 Right Femoral 25.2 Right Forearm 525 525 0 Oral 0 620 120 Output: Urine 490 355 110 Urethral (Wall) 490 355 110 Emesis 0 0 Other: # Bowel Movements 1 0 0 - Medications Active Medications: Active Medications Generic Name Dose Route Start Last Admin Trade Name Freq PRN Reason Stop Dose Admin Amiodarone HCl 200 mg 04/04/18 11:00 04/04/18 12:43 Cordarone PO 200 mg Q12 KARAN Administration Aspirin 81 mg 04/03/18 10:00 04/04/18 10:06 Ecotrin PO 81 mg DAILY KARAN Administration Dextrose 0 ml 04/03/18 12:00 Dextrose 50% Inj IV STAT PRN Hypoglycemia Protocol Protocol Dextrose 0 gm 04/03/18 12:00 Glutose 15 PO ONCE PRN Hypoglycemia Protocol Protocol Famotidine 20 mg 04/03/18 10:00 04/04/18 10:10 Pepcid IVP 20 mg DAILY KARAN Administration Glucagon 0 mg 04/03/18 12:00 Glucagen Diagnostic Kit IM STAT PRN Hypoglycemia Protocol Protocol Meropenem 500 mg/ Sodium 100 mls @ 100 mls/hr 04/03/18 06:00 04/04/18 13:58 Chloride IVPB 100 mls/hr Q8 KARAN Administration Protocol Metronidazole 500 mg in 100 mls @ 100 mls/hr 04/02/18 22:00 04/04/18 13:57 Flagyl IVPB 100 mls/hr Q8 KARAN Administration Protocol Vasopressin 40 units/ Dextrose 40 mls @ 2.4 mls/hr 04/02/18 22:30 04/04/18 02 :05 IV 2.4 mls/hr .[id number] KARAN Administration 0.04 UNITS/MIN Vancomycin/Sodium Chloride 1 gm in 200 mls @ 133.333 mls/hr 04/05/18 08:30 Vancomycin 1 Gm/Ns 200 Ml IVPB Q48H KARAN Protocol Dextrose 1,000 mls @ 0 mls/hr 04/03/18 12:00 Dextrose 5% In Water 1000 Ml IV .Q0M PRN Hypoglycemia Protocol Protocol Per Protocol Heparin Sodium/Sodium Chloride 25,000 units in 250 mls @ 13.009 mls/hr 09:31 04/04/18 14:02 Heparin 18592 Units/250ml 1/2 Normal Saline IV 12 units/kg/hr .[id number] PRN 13.009 mls/hr PROTOCOL Administration Protocol 12 UNITS/KG/HR Insulin Human Regular 0 unit 04/03/18 14:15 04/04/18 17:56 Novolin R SC 1 units ACHS KARAN Administration Protocol Saccharomyces Boulardii 250 mg 04/03/18 10:00 04/04/18 09:56 Florastor PO 250 mg Q12 KARAN Administration - Patient Studies Lab Studies: Microbiology Studies 04/02/18 18:51 Gram Stain - Final Leg - Right Wound Culture - Preliminary Gram Negative Rafa 04/02/18 16:54 Urine Culture - Final Urine,Catheterized No Growth (<1,000 CFU/ML) 04/02/18 18:51 MRSA Culture (Admit) - Final Naris MRSA NOT DETECTED Lab Studies 04/04/18 04/04/18 04/04/18 Range/Units 16:27 12:21 11:17 WBC (4.8-10.8) K/uL RBC (4.40-5.90) Mil/uL Hgb (12.0-18.0) g/dL Hct (35.0-51.0) % MCV (80.0-94.0) fL MCH (27.0-31.0) pg MCHC (33.0-37.0) g/dL RDW (11.5-14.5) % Plt Count (130-400) K/uL MPV (7.2-11.7) fL Neut % (Auto) (50.0-75.0) % Lymph % (Auto) (20.0-40.0) % [place] % (Auto) (0.0-10.0) % Eos % (Auto) (0.0-4.0) % Baso % (Auto) (0.0-2.0) % Neut # (Auto) (1.8-7.0) K/uL Lymph # (Auto) (1.0-4.3) K/uL [place] # (Auto) (0.0-0.8) K/uL Eos # (Auto) (0.0-0.7) K/uL Baso # (Auto) (0.0-0.2) K/uL Neutrophils % (Manual) (50-75) % Band Neutrophils % (0-2) % Lymphocytes % (Manual) (20-40) % Monocytes % (Manual) (0-10) % Platelet Estimate (NORMAL) Polychromasia Hypochromasia (manual) Puncture Site pCO2 (35-45) mm/Hg pO2 (80-100) mm/Hg HCO3 (21-28) mmol/L ABG pH (7.35-7.45) ABG Total CO2 (22-28) mmol/L ABG O2 Saturation (95-98) % ABG Base Excess (-2.0-3.0) mmol/L [place] Test ABG Potassium (3.6-5.2) mmol/L A-a O2 Difference mm/Hg Respiratory Index Sodium (132-148) mmol/l Chloride (98-107) mmol/L Glucose (75-110) mg/dl Lactate (0.7-2.1) mmol/L Vent Mode FiO2 % Inspiratory BiPAP Expiratory BiPAP Potassium (3.6-5.2) mmol/L Carbon Dioxide (22-30) mmol/L Anion Gap (10-20) BUN (9-20) mg/dL Creatinine (0.8-1.5) mg/dL Est GFR ( Amer) Est GFR (Non-Af Amer) POC Glucose (mg/dL) 189 H 191 H 193 H (65-110) mg/dL Random Glucose (75-110) mg/dL Lactic Acid (0.7-2.1) mmol/L Calcium (8.6-10.4) mg/dl Phosphorus (2.5-4.5) mg/dL Magnesium (1.6-2.3) mg/dL Total Bilirubin (0.2-1.3) mg/dL AST (17-59) U/L ALT (21-72) U/L Alkaline Phosphatase (38-126) U/L Total Protein (6.3-8.3) g/dL Albumin (3.5-5.0) g/dL Globulin (2.2-3.9) gm/dL Albumin/Globulin Ratio (1.0-2.1) Free T4 (0.78-2.19) ng/dL TSH 3rd Generation (0.46-4.68) mIU/L Arterial Blood Potassium (3.6-5.2) mmol/L Vancomycin Trough (5.0-10.0) ug/mL Random Vancomycin ug/mL 04/04/18 04/04/18 04/04/18 Range/Units 06:32 06:20 06:20 WBC 16.3 H (4.8-10.8) K/uL RBC 3.09 L (4.40-5.90) Mil/uL Hgb 9.6 L (12.0-18.0) g/dL Hct 28.8 L (35.0-51.0) % MCV 93.1 (80.0-94.0) fL MCH 31.1 H (27.0-31.0) pg MCHC 33.4 (33.0-37.0) g/dL RDW 14.8 H (11.5-14.5) % Plt Count 223 (130-400) K/uL MPV 8.6 (7.2-11.7) fL Neut % (Auto) 95.2 H (50.0-75.0) % Lymph % (Auto) 2.1 L (20.0-40.0) % [place] % (Auto) 2.5 (0.0-10.0) % Eos % (Auto) 0.1 (0.0-4.0) % Baso % (Auto) 0.1 (0.0-2.0) % Neut # (Auto) 15.5 H (1.8-7.0) K/uL Lymph # (Auto) 0.3 L (1.0-4.3) K/uL [place] # (Auto) 0.4 (0.0-0.8) K/uL Eos # (Auto) 0.0 (0.0-0.7) K/uL Baso # (Auto) 0.0 (0.0-0.2) K/uL Neutrophils % (Manual) 86 H (50-75) % Band Neutrophils % 7 H (0-2) % Lymphocytes % (Manual) 3 L (20-40) % Monocytes % (Manual) 4 (0-10) % Platelet Estimate Normal (NORMAL) Polychromasia Slight Hypochromasia (manual) Slight Puncture Site pCO2 (35-45) mm/Hg pO2 (80-100) mm/Hg HCO3 (21-28) mmol/L ABG pH (7.35-7.45) ABG Total CO2 (22-28) mmol/L ABG O2 Saturation (95-98) % ABG Base Excess (-2.0-3.0) mmol/L [place] Test ABG Potassium (3.6-5.2) mmol/L A-a O2 Difference mm/Hg Respiratory Index Sodium 138 (132-148) mmol/l Chloride 104 (98-107) mmol/L Glucose (75-110) mg/dl Lactate (0.7-2.1) mmol/L Vent Mode FiO2 % Inspiratory BiPAP Expiratory BiPAP Potassium 3.0 L (3.6-5.2) mmol/L Carbon Dioxide 23 (22-30) mmol/L Anion Gap 14 (10-20) BUN 94 H (9-20) mg/dL Creatinine 2.9 H (0.8-1.5) mg/dL Est GFR ( Amer) 26 Est GFR (Non-Af Amer) 21 POC Glucose (mg/dL) (65-110) mg/dL Random Glucose 239 H (75-110) mg/dL Lactic Acid (0.7-2.1) mmol/L Calcium 7.2 L (8.6-10.4) mg/dl Phosphorus 4.9 H (2.5-4.5) mg/dL Magnesium 2.3 (1.6-2.3) mg/dL Total Bilirubin 0.8 (0.2-1.3) mg/dL AST 28 (17-59) U/L ALT 27 (21-72) U/L Alkaline Phosphatase 55 (38-126) U/L Total Protein 4.5 L (6.3-8.3) g/dL Albumin 2.2 L (3.5-5.0) g/dL Globulin 2.3 (2.2-3.9) gm/dL Albumin/Globulin Ratio 0.9 L (1.0-2.1) Free T4 (0.78-2.19) ng/dL TSH 3rd Generation (0.46-4.68) mIU/L Arterial Blood Potassium (3.6-5.2) mmol/L Vancomycin Trough (5.0-10.0) ug/mL Random Vancomycin 12.0 ug/mL 04/04/18 04/04/18 04/03/18 Range/Units 05:17 00:02 19:27 WBC (4.8-10.8) K/uL RBC (4.40-5.90) Mil/uL Hgb (12.0-18.0) g/dL Hct (35.0-51.0) % MCV (80.0-94.0) fL MCH (27.0-31.0) pg MCHC (33.0-37.0) g/dL RDW (11.5-14.5) % Plt Count (130-400) K/uL MPV (7.2-11.7) fL Neut % (Auto) (50.0-75.0) % Lymph % (Auto) (20.0-40.0) % [place] % (Auto) (0.0-10.0) % Eos % (Auto) (0.0-4.0) % Baso % (Auto) (0.0-2.0) % Neut # (Auto) (1.8-7.0) K/uL Lymph # (Auto) (1.0-4.3) K/uL [place] # (Auto) (0.0-0.8) K/uL Eos # (Auto) (0.0-0.7) K/uL Baso # (Auto) (0.0-0.2) K/uL Neutrophils % (Manual) (50-75) % Band Neutrophils % (0-2) % Lymphocytes % (Manual) (20-40) % Monocytes % (Manual) (0-10) % Platelet Estimate (NORMAL) Polychromasia Hypochromasia (manual) Puncture Site Rr pCO2 32 L (35-45) mm/Hg pO2 98 (80-100) mm/Hg HCO3 25.7 (21-28) mmol/L ABG pH 7.48 H (7.35-7.45) ABG Total CO2 24.8 (22-28) mmol/L ABG O2 Saturation 97.1 (95-98) % ABG Base Excess 0.9 (-2.0-3.0) mmol/L [place] Test Pos ABG Potassium 2.7 L (3.6-5.2) mmol/L A-a O2 Difference 76.0 mm/Hg Respiratory Index 0.8 Sodium 136.0 (132-148) mmol/l Chloride 106.0 (98-107) mmol/L Glucose 259 H (75-110) mg/dl Lactate 1.5 (0.7-2.1) mmol/L Vent Mode Bipap FiO2 30.0 % Inspiratory BiPAP 10 Expiratory BiPAP 5 Potassium (3.6-5.2) mmol/L Carbon Dioxide (22-30) mmol/L Anion Gap (10-20) BUN (9-20) mg/dL Creatinine (0.8-1.5) mg/dL Est GFR ( Amer) Est GFR (Non-Af Amer) POC Glucose (mg/dL) 267 H (65-110) mg/dL Random Glucose (75-110) mg/dL Lactic Acid 3.3 H (0.7-2.1) mmol/L Calcium (8.6-10.4) mg/dl Phosphorus (2.5-4.5) mg/dL Magnesium (1.6-2.3) mg/dL Total Bilirubin (0.2-1.3) mg/dL AST (17-59) U/L ALT (21-72) U/L Alkaline Phosphatase (38-126) U/L Total Protein (6.3-8.3) g/dL Albumin (3.5-5.0) g/dL Globulin (2.2-3.9) gm/dL Albumin/Globulin Ratio (1.0-2.1) Free T4 (0.78-2.19) ng/dL TSH 3rd Generation (0.46-4.68) mIU/L Arterial Blood Potassium 2.7 L (3.6-5.2) mmol/L Vancomycin Trough (5.0-10.0) ug/mL Random Vancomycin ug/mL 04/03/18 04/03/18 04/03/18 Range/Units 19:27 17:42 17:31 WBC (4.8-10.8) K/uL RBC (4.40-5.90) Mil/uL Hgb (12.0-18.0) g/dL Hct (35.0-51.0) % MCV (80.0-94.0) fL MCH (27.0-31.0) pg MCHC (33.0-37.0) g/dL RDW (11.5-14.5) % Plt Count (130-400) K/uL MPV (7.2-11.7) fL Neut % (Auto) (50.0-75.0) % Lymph % (Auto) (20.0-40.0) % [place] % (Auto) (0.0-10.0) % Eos % (Auto) (0.0-4.0) % Baso % (Auto) (0.0-2.0) % Neut # (Auto) (1.8-7.0) K/uL Lymph # (Auto) (1.0-4.3) K/uL [place] # (Auto) (0.0-0.8) K/uL Eos # (Auto) (0.0-0.7) K/uL Baso # (Auto) (0.0-0.2) K/uL Neutrophils % (Manual) (50-75) % Band Neutrophils % (0-2) % Lymphocytes % (Manual) (20-40) % Monocytes % (Manual) (0-10) % Platelet Estimate (NORMAL) Polychromasia Hypochromasia (manual) Puncture Site pCO2 (35-45) mm/Hg pO2 (80-100) mm/Hg HCO3 (21-28) mmol/L ABG pH (7.35-7.45) ABG Total CO2 (22-28) mmol/L ABG O2 Saturation (95-98) % ABG Base Excess (-2.0-3.0) mmol/L [place] Test ABG Potassium (3.6-5.2) mmol/L A-a O2 Difference mm/Hg Respiratory Index Sodium (132-148) mmol/l Chloride (98-107) mmol/L Glucose (75-110) mg/dl Lactate (0.7-2.1) mmol/L Vent Mode FiO2 % Inspiratory BiPAP Expiratory BiPAP Potassium (3.6-5.2) mmol/L Carbon Dioxide (22-30) mmol/L Anion Gap (10-20) BUN (9-20) mg/dL Creatinine (0.8-1.5) mg/dL Est GFR ( Amer) Est GFR (Non-Af Amer) POC Glucose (mg/dL) 260 H (65-110) mg/dL Random Glucose (75-110) mg/dL Lactic Acid (0.7-2.1) mmol/L Calcium (8.6-10.4) mg/dl Phosphorus (2.5-4.5) mg/dL Magnesium (1.6-2.3) mg/dL Total Bilirubin (0.2-1.3) mg/dL AST (17-59) U/L ALT (21-72) U/L Alkaline Phosphatase (38-126) U/L Total Protein (6.3-8.3) g/dL Albumin (3.5-5.0) g/dL Globulin (2.2-3.9) gm/dL Albumin/Globulin Ratio (1.0-2.1) Free T4 (0.78-2.19) ng/dL TSH 3rd Generation 1.57 (0.46-4.68) mIU/L Arterial Blood Potassium (3.6-5.2) mmol/L Vancomycin Trough 14.0 H (5.0-10.0) ug/mL Random Vancomycin ug/mL 04/03/18 Range/Units 17:30 WBC (4.8-10.8) K/uL RBC (4.40-5.90) Mil/uL Hgb (12.0-18.0) g/dL Hct (35.0-51.0) % MCV (80.0-94.0) fL MCH (27.0-31.0) pg MCHC (33.0-37.0) g/dL RDW (11.5-14.5) % Plt Count (130-400) K/uL MPV (7.2-11.7) fL Neut % (Auto) (50.0-75.0) % Lymph % (Auto) (20.0-40.0) % [place] % (Auto) (0.0-10.0) % Eos % (Auto) (0.0-4.0) % Baso % (Auto) (0.0-2.0) % Neut # (Auto) (1.8-7.0) K/uL Lymph # (Auto) (1.0-4.3) K/uL [place] # (Auto) (0.0-0.8) K/uL Eos # (Auto) (0.0-0.7) K/uL Baso # (Auto) (0.0-0.2) K/uL Neutrophils % (Manual) (50-75) % Band Neutrophils % (0-2) % Lymphocytes % (Manual) (20-40) % Monocytes % (Manual) (0-10) % Platelet Estimate (NORMAL) Polychromasia Hypochromasia (manual) Puncture Site pCO2 (35-45) mm/Hg pO2 (80-100) mm/Hg HCO3 (21-28) mmol/L ABG pH (7.35-7.45) ABG Total CO2 (22-28) mmol/L ABG O2 Saturation (95-98) % ABG Base Excess (-2.0-3.0) mmol/L [place] Test ABG Potassium (3.6-5.2) mmol/L A-a O2 Difference mm/Hg Respiratory Index Sodium (132-148) mmol/l Chloride (98-107) mmol/L Glucose (75-110) mg/dl Lactate (0.7-2.1) mmol/L Vent Mode FiO2 % Inspiratory BiPAP Expiratory BiPAP Potassium (3.6-5.2) mmol/L Carbon Dioxide (22-30) mmol/L Anion Gap (10-20) BUN (9-20) mg/dL Creatinine (0.8-1.5) mg/dL Est GFR ( Amer) Est GFR (Non-Af Amer) POC Glucose (mg/dL) (65-110) mg/dL Random Glucose (75-110) mg/dL Lactic Acid (0.7-2.1) mmol/L Calcium (8.6-10.4) mg/dl Phosphorus (2.5-4.5) mg/dL Magnesium (1.6-2.3) mg/dL Total Bilirubin (0.2-1.3) mg/dL AST (17-59) U/L ALT (21-72) U/L Alkaline Phosphatase (38-126) U/L Total Protein (6.3-8.3) g/dL Albumin (3.5-5.0) g/dL Globulin (2.2-3.9) gm/dL Albumin/Globulin Ratio (1.0-2.1) Free T4 1.35 (0.78-2.19) ng/dL TSH 3rd Generation (0.46-4.68) mIU/L Arterial Blood Potassium (3.6-5.2) mmol/L Vancomycin Trough (5.0-10.0) ug/mL Random Vancomycin ug/mL Laboratory Results - last 24 hr 04/03/18 04/03/18 04/03/18 17:30 17:31 17:42 WBC RBC Hgb Hct MCV MCH MCHC RDW Plt Count MPV Neut % (Auto) Lymph % (Auto) [place] % (Auto) Eos % (Auto) Baso % (Auto) Neut # (Auto) Lymph # (Auto) [place] # (Auto) Eos # (Auto) Baso # (Auto) Neutrophils % (Manual) Band Neutrophils % Lymphocytes % (Manual) Monocytes % (Manual) Platelet Estimate Polychromasia Hypochromasia (manual) Puncture Site pCO2 pO2 HCO3 ABG pH ABG Total CO2 ABG O2 Saturation ABG Base Excess [place] Test ABG Potassium A-a O2 Difference Respiratory Index Sodium Chloride Glucose Lactate Vent Mode FiO2 Inspiratory BiPAP Expiratory BiPAP Potassium Carbon Dioxide Anion Gap BUN Creatinine Est GFR ( Amer) Est GFR (Non-Af Amer) POC Glucose (mg/dL) 260 H Random Glucose Lactic Acid Calcium Phosphorus Magnesium Total Bilirubin AST ALT Alkaline Phosphatase Total Protein Albumin Globulin Albumin/Globulin Ratio Free T4 1.35 TSH 3rd Generation 1.57 Arterial Blood Potassium Vancomycin Trough Random Vancomycin 04/03/18 04/03/18 04/04/18 19:27 19:27 00:02 WBC RBC Hgb Hct MCV MCH MCHC RDW Plt Count MPV Neut % (Auto) Lymph % (Auto) [place] % (Auto) Eos % (Auto) Baso % (Auto) Neut # (Auto) Lymph # (Auto) [place] # (Auto) Eos # (Auto) Baso # (Auto) Neutrophils % (Manual) Band Neutrophils % Lymphocytes % (Manual) Monocytes % (Manual) Platelet Estimate Polychromasia Hypochromasia (manual) Puncture Site pCO2 pO2 HCO3 ABG pH ABG Total CO2 ABG O2 Saturation ABG Base Excess [place] Test ABG Potassium A-a O2 Difference Respiratory Index Sodium Chloride Glucose Lactate Vent Mode FiO2 Inspiratory BiPAP Expiratory BiPAP Potassium Carbon Dioxide Anion Gap BUN Creatinine Est GFR ( Amer) Est GFR (Non-Af Amer) POC Glucose (mg/dL) 267 H Random Glucose Lactic Acid 3.3 H Calcium Phosphorus Magnesium Total Bilirubin AST ALT Alkaline Phosphatase Total Protein Albumin Globulin Albumin/Globulin Ratio Free T4 TSH 3rd Generation Arterial Blood Potassium Vancomycin Trough 14.0 H Random Vancomycin 04/04/18 04/04/18 04/04/18 05:17 06:20 06:20 WBC RBC Hgb Hct MCV MCH MCHC RDW Plt Count MPV Neut % (Auto) Lymph % (Auto) [place] % (Auto) Eos % (Auto) Baso % (Auto) Neut # (Auto) Lymph # (Auto) [place] # (Auto) Eos # (Auto) Baso # (Auto) Neutrophils % (Manual) Band Neutrophils % Lymphocytes % (Manual) Monocytes % (Manual) Platelet Estimate Polychromasia Hypochromasia (manual) Puncture Site Rr pCO2 32 L pO2 98 HCO3 25.7 ABG pH 7.48 H ABG Total CO2 24.8 ABG O2 Saturation 97.1 ABG Base Excess 0.9 [place] Test Pos ABG Potassium 2.7 L A-a O2 Difference 76.0 Respiratory Index 0.8 Sodium 136.0 138 Chloride 106.0 104 Glucose 259 H Lactate 1.5 Vent Mode Bipap FiO2 30.0 Inspiratory BiPAP 10 Expiratory BiPAP 5 Potassium 3.0 L Carbon Dioxide 23 Anion Gap 14 BUN 94 H Creatinine 2.9 H Est GFR ( Amer) 26 Est GFR (Non-Af Amer) 21 POC Glucose (mg/dL) Random Glucose 239 H Lactic Acid Calcium 7.2 L Phosphorus 4.9 H Magnesium 2.3 Total Bilirubin 0.8 AST 28 ALT 27 Alkaline Phosphatase 55 Total Protein 4.5 L Albumin 2.2 L Globulin 2.3 Albumin/Globulin Ratio 0.9 L Free T4 TSH 3rd Generation Arterial Blood Potassium 2.7 L Vancomycin Trough Random Vancomycin 12.0 04/04/18 04/04/18 04/04/18 06:32 11:17 12:21 WBC 16.3 H RBC 3.09 L Hgb 9.6 L Hct 28.8 L MCV 93.1 MCH 31.1 H MCHC 33.4 RDW 14.8 H Plt Count 223 MPV 8.6 Neut % (Auto) 95.2 H Lymph % (Auto) 2.1 L [place] % (Auto) 2.5 Eos % (Auto) 0.1 Baso % (Auto) 0.1 Neut # (Auto) 15.5 H Lymph # (Auto) 0.3 L [place] # (Auto) 0.4 Eos # (Auto) 0.0 Baso # (Auto) 0.0 Neutrophils % (Manual) 86 H Band Neutrophils % 7 H Lymphocytes % (Manual) 3 L Monocytes % (Manual) 4 Platelet Estimate Normal Polychromasia Slight Hypochromasia (manual) Slight Puncture Site pCO2 pO2 HCO3 ABG pH ABG Total CO2 ABG O2 Saturation ABG Base Excess [place] Test ABG Potassium A-a O2 Difference Respiratory Index Sodium Chloride Glucose Lactate Vent Mode FiO2 Inspiratory BiPAP Expiratory BiPAP Potassium Carbon Dioxide Anion Gap BUN Creatinine Est GFR ( Amer) Est GFR (Non-Af Amer) POC Glucose (mg/dL) 193 H 191 H Random Glucose Lactic Acid Calcium Phosphorus Magnesium Total Bilirubin AST ALT Alkaline Phosphatase Total Protein Albumin Globulin Albumin/Globulin Ratio Free T4 TSH 3rd Generation Arterial Blood Potassium Vancomycin Trough Random Vancomycin 04/04/18 16:27 WBC RBC Hgb Hct MCV MCH MCHC RDW Plt Count MPV Neut % (Auto) Lymph % (Auto) [place] % (Auto) Eos % (Auto) Baso % (Auto) Neut # (Auto) Lymph # (Auto) [place] # (Auto) Eos # (Auto) Baso # (Auto) Neutrophils % (Manual) Band Neutrophils % Lymphocytes % (Manual) Monocytes % (Manual) Platelet Estimate Polychromasia Hypochromasia (manual) Puncture Site pCO2 pO2 HCO3 ABG pH ABG Total CO2 ABG O2 Saturation ABG Base Excess [place] Test ABG Potassium A-a O2 Difference Respiratory Index Sodium Chloride Glucose Lactate Vent Mode FiO2 Inspiratory BiPAP Expiratory BiPAP Potassium Carbon Dioxide Anion Gap BUN Creatinine Est GFR ( Amer) Est GFR (Non-Af Amer) POC Glucose (mg/dL) 189 H Random Glucose Lactic Acid Calcium Phosphorus Magnesium Total Bilirubin AST ALT Alkaline Phosphatase Total Protein Albumin Globulin Albumin/Globulin Ratio Free T4 TSH 3rd Generation Arterial Blood Potassium Vancomycin Trough Random Vancomycin Critical Care Progress Note - Nutrition Nutrition: Nutrition Category Date Time Status Soft [Dysphagia/Modified Consistency Diet] [DIET] Diets 04/04/18 Dinner Active Attending/Attestation - Attestation I have personally seen and examined this patient.: Yes I have fully participated in the care of the patient.: Yes I have reviewed all pertinent clinical information: Yes Notes (Text): 04/04/18 18:05 patient seen and examined in the intensive care unit. 72 year old male admitted for severe sepsis, septic shock 2/2 bilateral lower extremity cellulitis, metabolic encephalopathy 2/2 ARF (severe metabolic acidosis and uremia), and atrial fibrillation with RVR. patient much more awake and responsive status post hemodialysis improving renal function Continue IV antibiotics follow-up culture and sensitivity Swallowing evaluation Started on IV heparin for A. fib with rapid rate Continue amiodarone off VERAPAMIL and amiodarone drip
--- NOTE | 2018-04-04 11:52 | CP.PCM.PN ---
Subjective - Date & Time of Evaluation Date of Evaluation: 04/04/18 Time of Evaluation: 07:00 - Subjective Subjective: more responsive blood c/s neg thus far iv rx to cont Dr Henriquez on consult Objective - Vital Signs/Intake and Output Vital Signs (last 24 hours): Temp Pulse Resp BP Pulse Ox 98.5 F 77 16 114/47 L 96 04/04/18 11:25 04/04/18 11:30 04/04/18 11:30 04/04/18 11:25 04/04/18 11:30 Intake and Output: 04/04/18 04/04/18 06:59 18:59 Intake Total 1208.6 773.4 Output Total 700 160 Balance 508.6 613.4 - Medications Medications: Current Medications Amiodarone HCl (Cordarone) 200 mg PO Q12 COUNTS INCLUDE 234 BEDS AT THE [facility] Aspirin (Ecotrin) 81 mg PO DAILY COUNTS INCLUDE 234 BEDS AT THE [facility] Last Admin: 04/04/18 10:06 Dose: 81 mg Dextrose (Dextrose 50% Inj) 0 ml IV STAT PRN; Protocol PRN Reason: Hypoglycemia Protocol Dextrose (Glutose 15) 0 gm PO ONCE PRN; Protocol PRN Reason: Hypoglycemia Protocol Famotidine (Pepcid) 20 mg IVP DAILY COUNTS INCLUDE 234 BEDS AT THE [facility] Last Admin: 04/04/18 10:10 Dose: 20 mg Glucagon (Glucagen Diagnostic Kit) 0 mg IM STAT PRN; Protocol PRN Reason: Hypoglycemia Protocol Meropenem 500 mg/ Sodium (Chloride) 100 mls @ 100 mls/hr IVPB Q8 KARAN PRN Reason: Protocol Last Admin: 04/04/18 06:04 Dose: 100 mls/hr Metronidazole (Flagyl) 500 mg in 100 mls @ 100 mls/hr IVPB Q8 KARAN PRN Reason: Protocol Last Admin: 04/04/18 05:03 Dose: 100 mls/hr Vasopressin 40 units/ Dextrose 40 mls @ 2.4 mls/hr IV .[id number] KARAN PRN Reason: 0.04 UNITS/MIN Last Admin: 04/04/18 02:05 Dose: 2.4 mls/hr Sodium Bicarbonate 150 meq/ (Dextrose) 1,000 mls @ 75 mls/hr IV .[id number] COUNTS INCLUDE 234 BEDS AT THE [facility] Last Admin: 04/04/18 01:50 Dose: 75 mls/hr Vancomycin/Sodium Chloride (Vancomycin 1 Gm/Ns 200 Ml) 1 gm in 200 mls @ 133.333 mls/hr IVPB Q48H COUNTS INCLUDE 234 BEDS AT THE [facility] PRN Reason: Protocol Dextrose (Dextrose 5% In Water 1000 Ml) 1,000 mls @ 0 mls/hr IV .Q0M PRN; Protocol; Per Protocol PRN Reason: Hypoglycemia Protocol Potassium Chloride (Potassium Chloride 20 Meq/100 Ml) 20 meq in 100 mls @ 50 mls/hr IVPB ONCE ONE Stop: 04/04/18 12:59 Heparin Sodium/Sodium Chloride (Heparin 68674 Units/250ml 1/2 Normal Saline) 25 ,000 units in 250 mls @ 13.009 mls/hr IV .[id number] PRN; Protocol; 12 UNITS/KG/HR PRN Reason: PROTOCOL Insulin Human Regular (Novolin R) 0 unit SC ACHS COUNTS INCLUDE 234 BEDS AT THE [facility] PRN Reason: Protocol Last Admin: 04/04/18 00:19 Dose: Not Given Saccharomyces Boulardii (Florastor) 250 mg PO Q12 COUNTS INCLUDE 234 BEDS AT THE [facility] Last Admin: 04/04/18 09:56 Dose: 250 mg - Labs Labs: 04/04/18 06:32 04/04/18 06:20 PT 13.3 SECONDS (9.7-12.2) H 04/02/18 15:25 INR 1.2 04/02/18 15:25 APTT 21 SECONDS (21-34) 04/02/18 15:25 - Constitutional Appears: Non-toxic, Chronically Ill - Head Exam Head Exam: NORMOCEPHALIC - Eye Exam Eye Exam: PERRL - ENT Exam ENT Exam: Mucous Membranes Dry - Neck Exam Neck Exam: absent: Lymphadenopathy - Respiratory Exam Respiratory Exam: Decreased Breath Sounds - Cardiovascular Exam Cardiovascular Exam: REGULAR RHYTHM - GI/Abdominal Exam GI & Abdominal Exam: Distended - Rectal Exam Rectal Exam: Deferred - Exam Exam: NORMAL INSPECTION - Extremities Exam Extremities Exam: Pedal Edema - Back Exam Back Exam: absent: CVA tenderness (L), CVA tenderness (R) - Neurological Exam Neurological Exam: Alert, Awake, CN II-XII Intact Assessment and Plan (1) TERRENCE (acute kidney injury) Status: Acute (2) Sepsis associated hypotension Status: Acute (3) Atrial fibrillation Status: Acute (4) Cellulitis of right leg Status: Acute (5) Chronic kidney disease, stage III (moderate) Status: Acute
--- NOTE | 2018-04-04 12:05 | RAD ---
PROCEDURE: Right tibia and fibula HISTORY: rule-out osteomyelitis COMPARISON: None available. TECHNIQUE: Standard protocol for this study/examination. FINDINGS: All diffuse edematous changes visualize right lower extremity. There either foci air within subcutaneous tissues or ulcerations distally and anteriorly. The finding is marked on the study. IMPRESSION: Soft tissue swelling and superficial ulceration without radiographic evidence of acute osteomyelitis.
--- NOTE | 2018-04-04 12:08 | CP.PCM.PN ---
Subjective - Date & Time of Evaluation Date of Evaluation: 04/04/18 Time of Evaluation: 12:07 - Subjective Subjective: seen and examined on one pressor on amiodarone for new a fib poorly functioning trialysis cath pt is awake alert, c/o b/l leg pain deneis any cp/sob/n/v/d/dizziness/headache hd completed, poor bfr Objective - Vital Signs/Intake and Output Vital Signs (last 24 hours): Temp Pulse Resp BP Pulse Ox 98.5 F 77 16 114/47 L 96 04/04/18 11:25 04/04/18 11:30 04/04/18 11:30 04/04/18 11:25 04/04/18 11:30 Intake and Output: 04/04/18 04/04/18 06:59 18:59 Intake Total 1208.6 773.4 Output Total 700 160 Balance 508.6 613.4 - Medications Medications: Current Medications Amiodarone HCl (Cordarone) 200 mg PO Q12 [facility] Aspirin (Ecotrin) 81 mg PO DAILY [facility] Last Admin: 04/04/18 10:06 Dose: 81 mg Dextrose (Dextrose 50% Inj) 0 ml IV STAT PRN; Protocol PRN Reason: Hypoglycemia Protocol Dextrose (Glutose 15) 0 gm PO ONCE PRN; Protocol PRN Reason: Hypoglycemia Protocol Famotidine (Pepcid) 20 mg IVP DAILY [facility] Last Admin: 04/04/18 10:10 Dose: 20 mg Glucagon (Glucagen Diagnostic Kit) 0 mg IM STAT PRN; Protocol PRN Reason: Hypoglycemia Protocol Meropenem 500 mg/ Sodium (Chloride) 100 mls @ 100 mls/hr IVPB Q8 [facility] PRN Reason: Protocol Last Admin: 04/04/18 06:04 Dose: 100 mls/hr Metronidazole (Flagyl) 500 mg in 100 mls @ 100 mls/hr IVPB Q8 [facility] PRN Reason: Protocol Last Admin: 04/04/18 05:03 Dose: 100 mls/hr Vasopressin 40 units/ Dextrose 40 mls @ 2.4 mls/hr IV .[id number] [facility] PRN Reason: 0.04 UNITS/MIN Last Admin: 04/04/18 02:05 Dose: 2.4 mls/hr Vancomycin/Sodium Chloride (Vancomycin 1 Gm/Ns 200 Ml) 1 gm in 200 mls @ 133.333 mls/hr IVPB Q48H [facility] PRN Reason: Protocol Dextrose (Dextrose 5% In Water 1000 Ml) 1,000 mls @ 0 mls/hr IV .Q0M PRN; Protocol; Per Protocol PRN Reason: Hypoglycemia Protocol Potassium Chloride (Potassium Chloride 20 Meq/100 Ml) 20 meq in 100 mls @ 50 mls/hr IVPB ONCE ONE Stop: 04/04/18 12:59 Heparin Sodium/Sodium Chloride (Heparin 23018 Units/250ml 1/2 Normal Saline) 25 ,000 units in 250 mls @ 13.009 mls/hr IV .[id number] PRN; Protocol; 12 UNITS/KG/HR PRN Reason: PROTOCOL Insulin Human Regular (Novolin R) 0 unit SC ACHS [facility] PRN Reason: Protocol Last Admin: 04/04/18 00:19 Dose: Not Given Saccharomyces Boulardii (Florastor) 250 mg PO Q12 [facility] Last Admin: 04/04/18 09:56 Dose: 250 mg - Labs Labs: 04/04/18 06:32 04/04/18 06:20 PT 13.3 SECONDS (9.7-12.2) H 04/02/18 15:25 INR 1.2 04/02/18 15:25 APTT 21 SECONDS (21-34) 04/02/18 15:25 - Constitutional Appears: Non-toxic, No Acute Distress, Chronically Ill - Head Exam Head Exam: NORMAL INSPECTION, NORMOCEPHALIC - Eye Exam Eye Exam: Normal appearance - ENT Exam ENT Exam: Mucous Membranes Dry - Neck Exam Neck Exam: Full ROM, Normal Inspection - Respiratory Exam Respiratory Exam: Decreased Breath Sounds, NORMAL BREATHING PATTERN - Cardiovascular Exam Cardiovascular Exam: REGULAR RHYTHM - GI/Abdominal Exam GI & Abdominal Exam: Distended, Soft - Extremities Exam Extremities Exam: Tenderness - Neurological Exam Neurological Exam: Alert, Awake - Psychiatric Exam Psychiatric exam: Normal Affect, Normal Mood - Skin Skin Exam: Dry, Warm Assessment and Plan (1) TERRENCE (acute kidney injury) Status: Acute (2) Sepsis associated hypotension Status: Acute (3) Septic shock due to Clostridium difficile Status: Acute (4) Atrial fibrillation Status: Acute (5) Cellulitis Status: Acute (6) Chronic kidney disease, stage III (moderate) Status: Acute - Assessment and Plan (Free Text) Assessment: good urine output, watch for renal recovery pressor support as needed dc bicarb gtt potassium supplementation as needed
--- NOTE | 2018-04-04 12:21 | CARD ---
APPROVED REPORT EKG Measurement Heart [id number] <Conclusion> Atrial fibrillation with rapid ventricular response Abnormal QRS-T angle, consider primary T wave abnormality Abnormal ECG
--- NOTE | 2018-04-04 19:16 | CP.PCM.PN ---
Subjective - Date & Time of Evaluation Date of Evaluation: 04/04/18 Time of Evaluation: 18:00 - Subjective Subjective: Patient was seen and examined at 6:00 PM 04/04/18 ICU Bed 9 72 year old male who was admitted to the ICU on 04/02/18 for treatment of Severe Sepsis. Please see assessment and plans below for further details. Patient is awake today, answering questions, and following commands. Upon ROS gives the following complaints: "My legs are in bad shape doc" Would like some soup NO other complaints upon FULL ROS Spoke with ICU Nurse Becka and patient had two large watery nonbloody bowel movements today Exam: General: Awake, Alert, and Oriented person, place but NOT to time (believes it is November and could not provide year) HEENT: NCA, EOMI, PERRLA, NO lymphadenopathy, NO thyromegaly, NO pharyngeal erythema/exudate, Nasal Turbinates are nonerythematous/nonedematous Cardio: NS1 and NS2, NO M/R/G Resp: CTA B/L, NO R/R/W with decreased breath sounds mid to lower lung rhodes GI: NT with NO guarding/rebound tenderness, Central obesity therefore liver and spleen could not be adequately palpated, Soft Ext: Bilateral UE pulses are strong and equal, Bilateral LE pulses could not be palpated, 2+ pitting edema of bilateral LE with erythema/warmth involving the ankles to the mid tibia bilaterally, multiple eschars present bilateral LE, open wound Right Anterior lower leg, NO more Maggots Neuro: CN II through XII are grossly intact Assessment/Plan 1) Severe Sepsis Septic Shock Assessment/Plan * Etiologies: b/l cellulitis over the legs (noted since 2017 available in the EMR) * Admitted to the ICU; further management per ICU * Code sepsis: 04/02/18 in the ED * On admission: hypotensive, temp 94 deg, wbc 52, lactate 3.3 * Consult Infectious Disease, Dr Valdez on board * CT chest/abd/pelvis w/o contrast: dependent atelectasis, mild cariomegaly, small hiatal hernia, subtle hypodensities in gallbladder (mass vs stone), 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, 1.5 cm left renal cyst, postoperative changes from bowel surgery, moderate stool in rectosigmoid colon, few mildly dilated small bowel loops * Abdomen U/S: hepatic parenchymal disease, gallstones * CT head w/o contrast: chronic microvascular changes, no focal deficit * C.Diff toxin negative * Urine Culture negative * Hepatitis Panel is negative * Wound Culture Right Leg shows Gram Negative Rods * F/U Blood Cx Medications: * Flagyl 500mg IVP Q8H * Meropenem 500mg IVP Q8H * Vancomycin 1g IV Q48H * Vasopressin drip 2) Bilateral Lower Cellulitis Assessment/Plan * patient's legs are edematous, erythematous, and weeping and with maggots upon presentation (Dakin's solution x 2 were given and the maggots are gone) * Wound culture of the right leg shows Gram Negative Rods: f/u sensitivities * Prior hx of cellulitis since 2017 noted in the EMR * Tib/Fib X Ray bilateral showed NO radiographic evidence of osteomyelitis * Infectious Disease Dr. Valdez * If podiatry consult warranted, please consult Dr. Johnnie Minor/Dr. To who has seen this patient in prior admission 3) Metabolic Encephalopathy Assessment/Plan * Etiology: sepsis, uremia, severe metabolic acidosis * emergent dialysis catheter placed by ICU on 04/02/18 * Nephrology (Dr. Luna) on board-->help appreciated * CT head w/o contrast: chronic microvascular changes, no focal deficit 4) Acute on Chronic Renal Insufficiency Severe Metabolic Acidosis Hyperkalemia Assessment/Plan * Nephrology (Dr. Luna) on board-->help appreciated * Note: history of nephrolithasis, prior hx of cystoscopy and stent insertion per EMR * Emergent HD through femoral catheter placed by ICU (right groin) on 04/02/18 * Bicarbonate drip: D5 W with 150 mEQ NaHCO3 at 75 ml/hr was discontinued on 5) Atrial Fibrillation w RVR Assessment/Plan * Cardiology (Dr. Henriquez) on board-->help appreciated * Patient was diagnosed with new onset atrial fibrillation last admission * Digoxin is < 0.4 04/03/18 * Echocardiogram 04/02/18: LA moderate dilation, mild concentric hypertrophy, EF 60-65%, normal diastolic filling * ASA 81 mg PO 1x/day * Amiodorone 200 mg PO Q12H * Heparin Drip for now for anticoagulation 6) History of colonic polyps History of partial colectecomy Assessment/Plan 7) Prior history of incarcerated hernia and small bowel obstruction Assessment/Plan * Noted in the EMR from patient's last hospitalization with Dr. Ceja who performed the surgery 8) Anemia Secondary to CKD Stage 4 * Monitor HgB/Hct 9) Prophylactic care * Contraindications to SCDS given cellulitis noted on bilateral legs * Heparin Drip * Wall * F/U Swallow Evaluation * Florastor 250 mg PO 2x/day Palliative Care Nurse Alba spoke with Son Troy (who was not present at time of my exam) 04/03/18: made DNR/DNI, POLST completed and in chart (FULL TREATMENT), would like patient to be placed in snf care and not return home (where is lives with other son). Certified Fraud Examiner to arrange for snf care facility placement. Rocco Pollack D.O. Objective - Vital Signs/Intake and Output Vital Signs (last 24 hours): Temp Pulse Resp BP Pulse Ox 97.9 F 88 15 85/42 L 99 04/04/18 16:00 04/04/18 18:47 04/04/18 18:47 04/04/18 18:48 04/04/18 18:47 Intake and Output: 04/04/18 04/04/18 06:59 18:59 Intake Total 1208.6 1967.6 Output Total 700 475 Balance 508.6 1492.6 - Medications Medications: Current Medications Amiodarone HCl (Cordarone) 200 mg PO Q12 [facility] Last Admin: 04/04/18 12:43 Dose: 200 mg Aspirin (Ecotrin) 81 mg PO DAILY [facility] Last Admin: 04/04/18 10:06 Dose: 81 mg Dextrose (Dextrose 50% Inj) 0 ml IV STAT PRN; Protocol PRN Reason: Hypoglycemia Protocol Dextrose (Glutose 15) 0 gm PO ONCE PRN; Protocol PRN Reason: Hypoglycemia Protocol Famotidine (Pepcid) 20 mg IVP DAILY [facility] Last Admin: 04/04/18 10:10 Dose: 20 mg Glucagon (Glucagen Diagnostic Kit) 0 mg IM STAT PRN; Protocol PRN Reason: Hypoglycemia Protocol Meropenem 500 mg/ Sodium (Chloride) 100 mls @ 100 mls/hr IVPB Q8 [facility] PRN Reason: Protocol Last Admin: 04/04/18 13:58 Dose: 100 mls/hr Metronidazole (Flagyl) 500 mg in 100 mls @ 100 mls/hr IVPB Q8 [facility] PRN Reason: Protocol Last Admin: 04/04/18 13:57 Dose: 100 mls/hr Vasopressin 40 units/ Dextrose 40 mls @ 2.4 mls/hr IV .[id number] [facility] PRN Reason: 0.04 UNITS/MIN Last Admin: 04/04/18 18:32 Dose: Not Given Vancomycin/Sodium Chloride (Vancomycin 1 Gm/Ns 200 Ml) 1 gm in 200 mls @ 133.333 mls/hr IVPB Q48H [facility] PRN Reason: Protocol Dextrose (Dextrose 5% In Water 1000 Ml) 1,000 mls @ 0 mls/hr IV .Q0M PRN; Protocol; Per Protocol PRN Reason: Hypoglycemia Protocol Heparin Sodium/Sodium Chloride (Heparin 57695 Units/250ml 1/2 Normal Saline) 25 ,000 units in 250 mls @ 13.009 mls/hr IV .[id number] PRN; Protocol; 12 UNITS/KG/HR PRN Reason: PROTOCOL Last Admin: 04/04/18 14:02 Dose: 12 units/kg/hr, 13.009 mls/hr Insulin Human Regular (Novolin R) 0 unit SC ACHS [facility] PRN Reason: Protocol Last Admin: 04/04/18 17:56 Dose: 1 units Saccharomyces Boulardii (Florastor) 250 mg PO Q12 [facility] Last Admin: 04/04/18 09:56 Dose: 250 mg - Labs Labs: 04/04/18 06:32 04/04/18 06:20 PT 13.3 SECONDS (9.7-12.2) H 04/02/18 15:25 INR 1.2 04/02/18 15:25 APTT 21 SECONDS (21-34) 04/02/18 15:25
[2018-04-04] MEDS: Heparin25000 units/250ml 1/2NS 25,000 UNITS/250 ML BAG IV PRN (21:02)
[2018-04-04] MEDS ORDERED: Sodium Chloride 0.9% 500 ML IV ONE (23:38)
--- NOTE | 2018-04-04 23:57 | CP.PCM.PN ---
Subjective - Date & Time of Evaluation Date of Evaluation: 04/04/18 Time of Evaluation: 16:10 - Subjective Subjective: Patient seen and evaluated On BiPAP Review of Systems - Review of Systems Systems not reviewed;Unavailable: Altered Mental Status Review of Systems: Per son: - Constitutional Constitutional: Chills, Fever, Lethargy, Malaise - Cardiovascular Cardiovascular: absent: Chest Pain - Respiratory Respiratory: Dyspnea - Gastrointestinal Gastrointestinal: absent: Abdominal Pain - Genitourinary Genitourinary: absent: Dysuria Physical Exam - Constitutional Appears: In Acute Distress - Head Exam Head Exam: ATRAUMATIC, NORMAL INSPECTION - Eye Exam Eye Exam: EOMI Pupil Exam: PERRL - ENT Exam ENT Exam: Mucous Membranes Dry - Neck Exam Neck exam: Positive for: Normal Inspection - Respiratory Exam Respiratory Exam: Clear to Auscultation Bilateral, NORMAL BREATHING PATTERN. absent: Rales, Rhonchi, Wheezes - Cardiovascular Exam Cardiovascular Exam: Tachycardia, +S1, +S2. absent: JVD - GI/Abdominal Exam GI & Abdominal Exam: Diminished Bowel Sounds, Soft - Extremities Exam Extremities exam: Negative for: normal capillary refill - Neurological Exam Neurological exam: Altered Objective - Vital Signs/Intake and Output Vital Signs (last 24 hours): Temp Pulse Resp BP Pulse Ox 97.8 F 90 12 90/35 L 99 04/04/18 20:00 04/04/18 23:42 04/04/18 23:18 04/04/18 23:18 04/04/18 23:18 Intake and Output: 04/04/18 04/05/18 18:59 06:59 Intake Total 2019.6 605.6 Output Total 475 110 Balance 1544.6 495.6 - Medications Medications: Current Medications Amiodarone HCl (Cordarone) 200 mg PO Q12 [facility] Last Admin: 04/04/18 12:43 Dose: 200 mg Aspirin (Ecotrin) 81 mg PO DAILY [facility] Last Admin: 04/04/18 10:06 Dose: 81 mg Dextrose (Dextrose 50% Inj) 0 ml IV STAT PRN; Protocol PRN Reason: Hypoglycemia Protocol Dextrose (Glutose 15) 0 gm PO ONCE PRN; Protocol PRN Reason: Hypoglycemia Protocol Famotidine (Pepcid) 20 mg IVP DAILY [facility] Last Admin: 04/04/18 10:10 Dose: 20 mg Glucagon (Glucagen Diagnostic Kit) 0 mg IM STAT PRN; Protocol PRN Reason: Hypoglycemia Protocol Meropenem 500 mg/ Sodium (Chloride) 100 mls @ 100 mls/hr IVPB Q8 [facility] PRN Reason: Protocol Last Admin: 04/04/18 21:10 Dose: 100 mls/hr Metronidazole (Flagyl) 500 mg in 100 mls @ 100 mls/hr IVPB Q8 [facility] PRN Reason: Protocol Last Admin: 04/04/18 21:11 Dose: 100 mls/hr Vasopressin 40 units/ Dextrose 40 mls @ 2.4 mls/hr IV .[id number] [facility] PRN Reason: 0.04 UNITS/MIN Last Admin: 04/04/18 18:32 Dose: Not Given Vancomycin/Sodium Chloride (Vancomycin 1 Gm/Ns 200 Ml) 1 gm in 200 mls @ 133.333 mls/hr IVPB Q48H [facility] PRN Reason: Protocol Dextrose (Dextrose 5% In Water 1000 Ml) 1,000 mls @ 0 mls/hr IV .Q0M PRN; Protocol; Per Protocol PRN Reason: Hypoglycemia Protocol Heparin Sodium/Sodium Chloride (Heparin 57835 Units/250ml 1/2 Normal Saline) 25 ,000 units in 250 mls @ 15.177 mls/hr IV .[id number] PRN; Protocol; 14 UNITS/KG/HR PRN Reason: PROTOCOL Last Admin: 04/04/18 21:02 Dose: 14 units/kg/hr, 15.177 mls/hr Sodium Chloride (Sodium Chloride 0.9%) 500 mls @ 1,000 mls/hr IV .Q30M ONE Stop: 04/05/18 00:07 Insulin Human Regular (Novolin R) 0 unit SC ACHS [facility] PRN Reason: Protocol Last Admin: 04/04/18 21:18 Dose: Not Given Saccharomyces Boulardii (Florastor) 250 mg PO Q12 [facility] Last Admin: 04/04/18 21:10 Dose: 250 mg - Labs Labs: 04/04/18 06:32 04/04/18 06:20 PT 13.3 SECONDS (9.7-12.2) H 04/02/18 15:25 INR 1.2 04/02/18 15:25 APTT 34 SECONDS (21-34) D 04/04/18 20:16 Assessment and Plan - Assessment and Plan (Free Text) Assessment: 72 year old male with a PMHx of arthritis, history of colon polyps, kidney stones, renal insufficiency, glaucoma s/p partial colectomy in 2015 with weakness, fevers for 1 week prior to presentation: SEVERE SEPSIS On admission: hypotensive, temp 94 deg, wbc 52, lactate 3.3 Consult Infectious Disease, Dr Courtney Buchanan serial serum lactate F/U CT chest/abd/pelvis w/o contrast F/U CT head w/o contrast F/U C.Diff toxin F/U Blood Cx, urine Cx, would Cx F/U Hep panel F/U procalcitonin Medications: Flagyl 500mg IVP Q8H Meropenem 500mg IVP Q8H Vancomycin 500mg PO QID Vancomycin 1g IV QD NS 500ml/hr LOWER EXTREMITY CELLULITS BILATERALLY F/U wound Cx of right leg Prior hx of cellulitis since 2016 Wound care center/Hyperbaric consult F/U xray of LE b/l METABOLIC ENCEPHALOPATHY Etiology: sepsis, uremia, severe metabolic acidosis emergent dialysis catheter placed by ICU Nephrology on board F/U CT head ACUTE RENAL FAILURE 2/2 to end organ damage from severe sepsis On admission BUN 150, Cr 6.2 Consult nephrology, Dr Luna Emergent HD through femoral catheter AFIB W/ RVR Consult Cardio, Dr Henriquez F/U Echo F/U Digoxin level Hold asa until CT head rules out bleed F/U hgbA1c, Lipid panel, TSH/Free T4 HYPERKALEMIC 2/2 to cell necrosis from poor tissue perfusion in setting of severe sepsis On admission: potassium 7.1 F/U serial troponins Calcium gluconate 4.65 meq given once Insulin Regular 10u IV given once ACIDOTIC Ph on admission: 6.87 Likely metabolic given elevated lactate Bicarb 1 amp given once Dextrose 5% with Bicarb 50 meq @ 100ml/hr ABNORMAL URINANALYSIS UA on admission: 1+ leuk esterase, wbc, 1+ blood LOWER EXTREMITY CELLULITS BILATERALLY F/U wound Cx of right leg Prior hx of cellulitis since 2016 Wound care center/Hyperbaric consult F/U xray of LE b/l ELEVATED PROBNP On admission: Pro-bnp 5000 ARF possibly a contributing factor F/U Echo Echo 08/2017: * Difficult study. EF 65%. Diastolic filling pressures normal. Aortic valve cannot comment. Poor study. PROPHYLAXIS SCDs contraindicated due to LE cellultis Original Note:
--- NOTE | 2018-04-04 23:57 | CP.PCM.PN ---
Subjective - Date & Time of Evaluation Date of Evaluation: 04/03/18 Time of Evaluation: 07:30 - Subjective Subjective: Patient seen and evaluated On BiPAP Review of Systems - Review of Systems Systems not reviewed;Unavailable: Altered Mental Status Review of Systems: Per son: - Constitutional Constitutional: Chills, Fever, Lethargy, Malaise - Cardiovascular Cardiovascular: absent: Chest Pain - Respiratory Respiratory: Dyspnea - Gastrointestinal Gastrointestinal: absent: Abdominal Pain - Genitourinary Genitourinary: absent: Dysuria Physical Exam - Constitutional Appears: In Acute Distress - Head Exam Head Exam: ATRAUMATIC, NORMAL INSPECTION - Eye Exam Eye Exam: EOMI Pupil Exam: PERRL - ENT Exam ENT Exam: Mucous Membranes Dry - Neck Exam Neck exam: Positive for: Normal Inspection - Respiratory Exam Respiratory Exam: Clear to Auscultation Bilateral, NORMAL BREATHING PATTERN. absent: Rales, Rhonchi, Wheezes - Cardiovascular Exam Cardiovascular Exam: Tachycardia, +S1, +S2. absent: JVD - GI/Abdominal Exam GI & Abdominal Exam: Diminished Bowel Sounds, Soft - Extremities Exam Extremities exam: Negative for: normal capillary refill - Neurological Exam Neurological exam: Altered Objective - Vital Signs/Intake and Output Vital Signs (last 24 hours): Temp Pulse Resp BP Pulse Ox 97.8 F 90 12 90/35 L 99 04/04/18 20:00 04/04/18 23:42 04/04/18 23:18 04/04/18 23:18 04/04/18 23:18 Intake and Output: 04/04/18 04/05/18 18:59 06:59 Intake Total 2019.6 605.6 Output Total 475 110 Balance 1544.6 495.6 - Medications Medications: Current Medications Amiodarone HCl (Cordarone) 200 mg PO Q12 [facility] Last Admin: 04/04/18 12:43 Dose: 200 mg Aspirin (Ecotrin) 81 mg PO DAILY [facility] Last Admin: 04/04/18 10:06 Dose: 81 mg Dextrose (Dextrose 50% Inj) 0 ml IV STAT PRN; Protocol PRN Reason: Hypoglycemia Protocol Dextrose (Glutose 15) 0 gm PO ONCE PRN; Protocol PRN Reason: Hypoglycemia Protocol Famotidine (Pepcid) 20 mg IVP DAILY [facility] Last Admin: 04/04/18 10:10 Dose: 20 mg Glucagon (Glucagen Diagnostic Kit) 0 mg IM STAT PRN; Protocol PRN Reason: Hypoglycemia Protocol Meropenem 500 mg/ Sodium (Chloride) 100 mls @ 100 mls/hr IVPB Q8 [facility] PRN Reason: Protocol Last Admin: 04/04/18 21:10 Dose: 100 mls/hr Metronidazole (Flagyl) 500 mg in 100 mls @ 100 mls/hr IVPB Q8 [facility] PRN Reason: Protocol Last Admin: 04/04/18 21:11 Dose: 100 mls/hr Vasopressin 40 units/ Dextrose 40 mls @ 2.4 mls/hr IV .[id number] [facility] PRN Reason: 0.04 UNITS/MIN Last Admin: 04/04/18 18:32 Dose: Not Given Vancomycin/Sodium Chloride (Vancomycin 1 Gm/Ns 200 Ml) 1 gm in 200 mls @ 133.333 mls/hr IVPB Q48H [facility] PRN Reason: Protocol Dextrose (Dextrose 5% In Water 1000 Ml) 1,000 mls @ 0 mls/hr IV .Q0M PRN; Protocol; Per Protocol PRN Reason: Hypoglycemia Protocol Heparin Sodium/Sodium Chloride (Heparin 13420 Units/250ml 1/2 Normal Saline) 25 ,000 units in 250 mls @ 15.177 mls/hr IV .[id number] PRN; Protocol; 14 UNITS/KG/HR PRN Reason: PROTOCOL Last Admin: 04/04/18 21:02 Dose: 14 units/kg/hr, 15.177 mls/hr Sodium Chloride (Sodium Chloride 0.9%) 500 mls @ 1,000 mls/hr IV .Q30M ONE Stop: 04/05/18 00:07 Insulin Human Regular (Novolin R) 0 unit SC ACHS [facility] PRN Reason: Protocol Last Admin: 04/04/18 21:18 Dose: Not Given Saccharomyces Boulardii (Florastor) 250 mg PO Q12 [facility] Last Admin: 04/04/18 21:10 Dose: 250 mg - Labs Labs: 04/04/18 06:32 04/04/18 06:20 PT 13.3 SECONDS (9.7-12.2) H 04/02/18 15:25 INR 1.2 04/02/18 15:25 APTT 34 SECONDS (21-34) D 04/04/18 20:16 Assessment and Plan - Assessment and Plan (Free Text) Assessment: 72 year old male with a PMHx of arthritis, history of colon polyps, kidney stones, renal insufficiency, glaucoma s/p partial colectomy in 2015 with weakness, fevers for 1 week prior to presentation: SEVERE SEPSIS On admission: hypotensive, temp 94 deg, wbc 52, lactate 3.3 Consult Infectious Disease, Dr Courtney Buchanan serial serum lactate F/U CT chest/abd/pelvis w/o contrast F/U CT head w/o contrast F/U C.Diff toxin F/U Blood Cx, urine Cx, would Cx F/U Hep panel F/U procalcitonin Medications: Flagyl 500mg IVP Q8H Meropenem 500mg IVP Q8H Vancomycin 500mg PO QID Vancomycin 1g IV QD NS 500ml/hr LOWER EXTREMITY CELLULITS BILATERALLY F/U wound Cx of right leg Prior hx of cellulitis since 2016 Wound care center/Hyperbaric consult F/U xray of LE b/l METABOLIC ENCEPHALOPATHY Etiology: sepsis, uremia, severe metabolic acidosis emergent dialysis catheter placed by ICU Nephrology on board F/U CT head ACUTE RENAL FAILURE 2/2 to end organ damage from severe sepsis On admission BUN 150, Cr 6.2 Consult nephrology, Dr Luna Emergent HD through femoral catheter AFIB W/ RVR Consult Cardio, Dr Henriquez F/U Echo F/U Digoxin level Hold asa until CT head rules out bleed F/U hgbA1c, Lipid panel, TSH/Free T4 HYPERKALEMIC 2/2 to cell necrosis from poor tissue perfusion in setting of severe sepsis On admission: potassium 7.1 F/U serial troponins Calcium gluconate 4.65 meq given once Insulin Regular 10u IV given once ACIDOTIC Ph on admission: 6.87 Likely metabolic given elevated lactate Bicarb 1 amp given once Dextrose 5% with Bicarb 50 meq @ 100ml/hr ABNORMAL URINANALYSIS UA on admission: 1+ leuk esterase, wbc, 1+ blood LOWER EXTREMITY CELLULITS BILATERALLY F/U wound Cx of right leg Prior hx of cellulitis since 2016 Wound care center/Hyperbaric consult F/U xray of LE b/l ELEVATED PROBNP On admission: Pro-bnp 5000 ARF possibly a contributing factor F/U Echo Echo 08/2017: * Difficult study. EF 65%. Diastolic filling pressures normal. Aortic valve cannot comment. Poor study. PROPHYLAXIS SCDs contraindicated due to LE cellultis Original Note:
[2018-04-05] MEDS: Vasopressin 40 UNITS in Dextrose 5% In Water 38 ML IV SCH (00:30)
[2018-04-05 05:12] LABS: BASO % 0.2 % (0.0-2.0); EOS # 0.1 K/uL (0.0-0.7); EOS % 0.4 % (0.0-4.0); HEMOGLOBIN 9.2 g/dL (12.0-18.0); LYMPH # 0.9 K/uL (1.0-4.3); LYMPH % 5.6 % (20.0-40.0); MEAN CELL VOLUME 92.9 fL (80.0-94.0); MEAN CORPUSCULAR HEMOGLOBIN 30.7 pg (27.0-31.0); MEAN CORPUSCULAR HGB CONC 33.1 g/dL (33.0-37.0); MEAN PLATELET VOLUME 8.3 fL (7.2-11.7); MONO # 0.4 K/uL (0.0-0.8); MONO % 2.7 % (0.0-10.0); NEUT # 14.1 K/uL (1.8-7.0); NEUT % 91.1 % (50.0-75.0); NRBC % 0.1 % (0.0-2.0); PLATELET COUNT 158 K/uL (130-400); RBC 2.99 Mil/uL (4.40-5.90); RED CELL DISTRIBUTION WIDTH 14.7 % (11.5-14.5); WHITE BLOOD COUNT 15.5 K/uL (4.8-10.8)
[2018-04-05] MEDS: metroNIDAZOLE IV 500 mg/100 ml 500 MG/100 ML BAG IVPB SCH ×2 (05:14→13:05)
[2018-04-05 05:30] LABS: ALB/GLOB RATIO 0.9 (1.0-2.1); ALBUMIN 2.2 g/dL (3.5-5.0); CALCIUM 7.2 mg/dl (8.6-10.4)
[2018-04-05] MEDS: Meropenem 500 MG in Sodium Chloride 0.9% 100 ML IVPB SCH ×3 (05:48→22:29)
[2018-04-05] MEDS: Heparin25000 units/250ml 1/2NS 25,000 UNITS/250 ML BAG IV PRN ×2 (06:30→22:31)
[2018-04-05 08:30] LABS: HYPOCHROMIC SLIGHT; LYMPHOCYTE 9 % (20-40); MONOCYTE 3 % (0-10); NEUTROPHIL 88 % (50-75); PLATELET ESTIMATE NORMAL (NORMAL); POLYCHROMIC SLIGHT; TOTAL CELLS COUNTED 100
[2018-04-05] MEDS ORDERED: Vancomycin 1 gm/NS 200 ml 1 GM/200 ML BAG IVPB SCH (08:30)
[2018-04-05] MEDS: (Novolin R) Insulin Human Regular 100 units/ml vial SC SCH ×4 (08:40→22:33)
[2018-04-05] MEDS: Vasopressin 40 UNITS in Dextrose 5% In Water 38 ML IV PRN ×2 (08:48→13:05)
[2018-04-05] MEDS: Saccharomyces Boulardi 250 mg Cap PO SCH ×2 (10:30→22:28)
--- NOTE | 2018-04-05 10:51 | CP.CCUPN ---
<Terri Mc - Last Filed: 04/05/18 10:46> CCU Subjective - Physician Review Subjective (Free Text): Patient is seen and examined at bedside. Patient is back to baseline, denied any chest pain, SOB, admitted to lower extremity pain. CCU Objective - Vital Signs / Intake & Output Vital Signs (Last 4 hours): Vital Signs Pulse Resp BP Pulse Ox 04/05/18 09:03 104 H 16 119/52 L 100 04/05/18 09:00 98 H 16 04/05/18 08:48 95 H 21 105/55 L 04/05/18 08:33 86 15 118/54 L 94 L 04/05/18 08:17 83 16 105/55 L 100 04/05/18 08:02 81 14 98/50 L 100 04/05/18 08:00 83 16 100 04/05/18 07:50 83 15 92/49 L 98 04/05/18 07:33 85 12 95/65 L 98 04/05/18 07:18 82 14 96/45 L 100 04/05/18 07:02 76 12 101/47 L 100 04/05/18 07:00 87 13 100 04/05/18 06:47 85 12 98/45 L 88 L Intake and Output (Last 8hrs): Intake & Output 04/04/18 04/05/18 04/05/18 22:59 06:59 14:59 Intake Total 1266.2 1529.2 71.8 Output Total 240 295 55 Balance 1026.2 1234.2 16.8 Weight 239 lb 237 lb Intake: IV 250 35 Intake, IV Amount 466.2 839.2 36.8 Left Hand 239 700 RIGHT FEM. Y 19.2 19.2 6.6 Right Fem. PB 100 Right Forearm 108 120 30.2 Oral 800 440 Output: Urine 240 295 55 Urethral (Wall) 240 295 55 Emesis 0 Other: # Bowel Movements 0 1 - Physical Exam Head: Positive for: Atraumatic, Normocephalic Pupils: Positive for: PERRL Extroacular Muscles: Positive for: EOMI Conjunctiva: Positive for: Normal Mouth: Positive for: Dry Neck: Positive for: Normal Range of Motion Respiratory/Chest: Positive for: Clear to Auscultation. Negative for: Decreased Breath Sounds Cardiovascular: Positive for: Tachycardic Abdomen: Positive for: Distention, Normal Bowel Sounds Upper Extremity: Positive for: Normal Inspection, NORMAL PULSES, Neurovascularly Intact Lower Extremity: Positive for: CALF TENDERNESS, Tenderness, Swelling, Erythema, Other (severe cellulitis noted bilateral lower extremities with eschar noted on heels, fungus. Open wounds on superior and lateral aspects of shins. Currently wrapped by wound care. ) Neurological: Positive for: GCS=15, CN II-XII Intact Skin: Positive for: Warm, Dry Psychiatric: Positive for: Alert - Medications Active Medications: Active Medications Generic Name Dose Route Start Last Admin Trade Name Freq PRN Reason Stop Dose Admin Amiodarone HCl 200 mg 04/04/18 11:00 04/05/18 10:30 Cordarone PO 200 mg Q12 KARAN Administration Aspirin 81 mg 04/05/18 10:15 04/05/18 10:29 Aspirin Chewable PO 81 mg DAILY KARAN Administration Dextrose 0 ml 04/03/18 12:00 Dextrose 50% Inj IV STAT PRN Hypoglycemia Protocol Protocol Dextrose 0 gm 04/03/18 12:00 Glutose 15 PO ONCE PRN Hypoglycemia Protocol Protocol Famotidine 20 mg 04/03/18 10:00 04/05/18 10:34 Pepcid IVP 20 mg DAILY KARAN Administration Glucagon 0 mg 04/03/18 12:00 Glucagen Diagnostic Kit IM STAT PRN Hypoglycemia Protocol Protocol Meropenem 500 mg/ Sodium 100 mls @ 100 mls/hr 04/03/18 06:00 04/05/18 05:48 Chloride IVPB 100 mls/hr Q8 KARAN Administration Protocol Metronidazole 500 mg in 100 mls @ 100 mls/hr 04/02/18 22:00 04/05/18 05:14 Flagyl IVPB 100 mls/hr Q8 KARAN Administration Protocol Vancomycin/Sodium Chloride 1 gm in 200 mls @ 133.333 mls/hr 04/05/18 08:30 07:43 Vancomycin 1 Gm/Ns 200 Ml IVPB 133.333 mls/hr Q48H KARAN Administration Protocol Dextrose 1,000 mls @ 0 mls/hr 04/03/18 12:00 Dextrose 5% In Water 1000 Ml IV .Q0M PRN Hypoglycemia Protocol Protocol Per Protocol Heparin Sodium/Sodium Chloride 25,000 units in 250 mls @ 15.177 mls/hr 21:00 04/05/18 06:30 Heparin 82421 Units/250ml 1/2 Normal Saline IV 14 units/kg/hr .[id number] PRN 15.177 mls/hr PROTOCOL Administration Protocol 14 UNITS/KG/HR Vasopressin 40 units/ Dextrose 40 mls @ 2.4 mls/hr 04/05/18 08:43 04/05/18 09 :30 IV 0.02 units/min .[id number] PRN 1.2 mls/hr PER TITRATION PROTOCOL Titration Protocol 0.04 UNITS/MIN Insulin Human Regular 0 unit 04/03/18 14:15 04/05/18 08:40 Novolin R SC 1 units ACHS KARAN Administration Protocol Saccharomyces Boulardii 250 mg 04/03/18 10:00 04/05/18 10:30 Florastor PO 250 mg Q12 KARAN Administration - Patient Studies Lab Studies: Microbiology Studies 04/03/18 14:00 Stool Culture - Final Stool NO SALMONELLA, SHIGELLA OR CAMPYLOBACTER ISOLATED. 04/02/18 18:51 Gram Stain - Final Leg - Right Wound Culture - Preliminary Serratia Marcescens 04/02/18 16:54 Urine Culture - Final Urine,Catheterized No Growth (<1,000 CFU/ML) Lab Studies 04/05/18 04/05/18 04/05/18 Range/Units 10:29 07:40 06:19 WBC (4.8-10.8) K/uL RBC (4.40-5.90) Mil/uL Hgb (12.0-18.0) g/dL Hct (35.0-51.0) % MCV (80.0-94.0) fL MCH (27.0-31.0) pg MCHC (33.0-37.0) g/dL RDW (11.5-14.5) % Plt Count (130-400) K/uL MPV (7.2-11.7) fL Neut % (Auto) (50.0-75.0) % Lymph % (Auto) (20.0-40.0) % [place] % (Auto) (0.0-10.0) % Eos % (Auto) (0.0-4.0) % Baso % (Auto) (0.0-2.0) % Neut # (Auto) (1.8-7.0) K/uL Lymph # (Auto) (1.0-4.3) K/uL [place] # (Auto) (0.0-0.8) K/uL Eos # (Auto) (0.0-0.7) K/uL Baso # (Auto) (0.0-0.2) K/uL Neutrophils % (Manual) (50-75) % Lymphocytes % (Manual) (20-40) % Monocytes % (Manual) (0-10) % Platelet Estimate (NORMAL) Polychromasia Hypochromasia (manual) APTT 90 H D (21-34) SECONDS Sodium (132-148) mmol/L Potassium (3.6-5.2) mmol/L Chloride (98-107) mmol/L Carbon Dioxide (22-30) mmol/L Anion Gap (10-20) BUN (9-20) mg/dL Creatinine (0.8-1.5) mg/dL Est GFR ( Amer) Est GFR (Non-Af Amer) POC Glucose (mg/dL) 179 H 174 H (65-110) mg/dL Random Glucose (75-110) mg/dL Calcium (8.6-10.4) mg/dl Phosphorus (2.5-4.5) mg/dL Magnesium (1.6-2.3) mg/dL Total Bilirubin (0.2-1.3) mg/dL AST (17-59) U/L ALT (21-72) U/L Alkaline Phosphatase (38-126) U/L Total Protein (6.3-8.3) g/dL Albumin (3.5-5.0) g/dL Globulin (2.2-3.9) gm/dL Albumin/Globulin Ratio (1.0-2.1) 04/05/18 04/05/18 04/05/18 Range/Units 05:09 05:09 05:09 WBC 15.5 H (4.8-10.8) K/uL RBC 2.99 L (4.40-5.90) Mil/uL Hgb 9.2 L (12.0-18.0) g/dL Hct 27.8 L (35.0-51.0) % MCV 92.9 (80.0-94.0) fL MCH 30.7 (27.0-31.0) pg MCHC 33.1 (33.0-37.0) g/dL RDW 14.7 H (11.5-14.5) % Plt Count 158 (130-400) K/uL MPV 8.3 (7.2-11.7) fL Neut % (Auto) 91.1 H (50.0-75.0) % Lymph % (Auto) 5.6 L (20.0-40.0) % [place] % (Auto) 2.7 (0.0-10.0) % Eos % (Auto) 0.4 (0.0-4.0) % Baso % (Auto) 0.2 (0.0-2.0) % Neut # (Auto) 14.1 H (1.8-7.0) K/uL Lymph # (Auto) 0.9 L (1.0-4.3) K/uL [place] # (Auto) 0.4 (0.0-0.8) K/uL Eos # (Auto) 0.1 (0.0-0.7) K/uL Baso # (Auto) 0.0 (0.0-0.2) K/uL Neutrophils % (Manual) 88 H (50-75) % Lymphocytes % (Manual) 9 L (20-40) % Monocytes % (Manual) 3 (0-10) % Platelet Estimate Normal (NORMAL) Polychromasia Slight Hypochromasia (manual) Slight APTT 67 H D (21-34) SECONDS Sodium 136 (132-148) mmol/L Potassium 3.6 (3.6-5.2) mmol/L Chloride 103 (98-107) mmol/L Carbon Dioxide 26 (22-30) mmol/L Anion Gap 10 (10-20) BUN 81 H (9-20) mg/dL Creatinine 2.2 H (0.8-1.5) mg/dL Est GFR ( Amer) 36 Est GFR (Non-Af Amer) 29 POC Glucose (mg/dL) (65-110) mg/dL Random Glucose 158 H (75-110) mg/dL Calcium 7.2 L (8.6-10.4) mg/dl Phosphorus 3.3 (2.5-4.5) mg/dL Magnesium 2.3 (1.6-2.3) mg/dL Total Bilirubin 0.6 (0.2-1.3) mg/dL AST 27 (17-59) U/L ALT 29 (21-72) U/L Alkaline Phosphatase 59 (38-126) U/L Total Protein 4.6 L (6.3-8.3) g/dL Albumin 2.2 L (3.5-5.0) g/dL Globulin 2.4 (2.2-3.9) gm/dL Albumin/Globulin Ratio 0.9 L (1.0-2.1) 04/04/18 04/04/18 04/04/18 Range/Units 23:23 21:12 20:16 WBC (4.8-10.8) K/uL RBC (4.40-5.90) Mil/uL Hgb (12.0-18.0) g/dL Hct (35.0-51.0) % MCV (80.0-94.0) fL MCH (27.0-31.0) pg MCHC (33.0-37.0) g/dL RDW (11.5-14.5) % Plt Count (130-400) K/uL MPV (7.2-11.7) fL Neut % (Auto) (50.0-75.0) % Lymph % (Auto) (20.0-40.0) % [place] % (Auto) (0.0-10.0) % Eos % (Auto) (0.0-4.0) % Baso % (Auto) (0.0-2.0) % Neut # (Auto) (1.8-7.0) K/uL Lymph # (Auto) (1.0-4.3) K/uL [place] # (Auto) (0.0-0.8) K/uL Eos # (Auto) (0.0-0.7) K/uL Baso # (Auto) (0.0-0.2) K/uL Neutrophils % (Manual) (50-75) % Lymphocytes % (Manual) (20-40) % Monocytes % (Manual) (0-10) % Platelet Estimate (NORMAL) Polychromasia Hypochromasia (manual) APTT 34 D (21-34) SECONDS Sodium (132-148) mmol/L Potassium (3.6-5.2) mmol/L Chloride (98-107) mmol/L Carbon Dioxide (22-30) mmol/L Anion Gap (10-20) BUN (9-20) mg/dL Creatinine (0.8-1.5) mg/dL Est GFR ( Amer) Est GFR (Non-Af Amer) POC Glucose (mg/dL) 201 H 186 H (65-110) mg/dL Random Glucose (75-110) mg/dL Calcium (8.6-10.4) mg/dl Phosphorus (2.5-4.5) mg/dL Magnesium (1.6-2.3) mg/dL Total Bilirubin (0.2-1.3) mg/dL AST (17-59) U/L ALT (21-72) U/L Alkaline Phosphatase (38-126) U/L Total Protein (6.3-8.3) g/dL Albumin (3.5-5.0) g/dL Globulin (2.2-3.9) gm/dL Albumin/Globulin Ratio (1.0-2.1) 04/04/18 04/04/18 04/04/18 Range/Units 16:27 12:21 11:17 WBC (4.8-10.8) K/uL RBC (4.40-5.90) Mil/uL Hgb (12.0-18.0) g/dL Hct (35.0-51.0) % MCV (80.0-94.0) fL MCH (27.0-31.0) pg MCHC (33.0-37.0) g/dL RDW (11.5-14.5) % Plt Count (130-400) K/uL MPV (7.2-11.7) fL Neut % (Auto) (50.0-75.0) % Lymph % (Auto) (20.0-40.0) % [place] % (Auto) (0.0-10.0) % Eos % (Auto) (0.0-4.0) % Baso % (Auto) (0.0-2.0) % Neut # (Auto) (1.8-7.0) K/uL Lymph # (Auto) (1.0-4.3) K/uL [place] # (Auto) (0.0-0.8) K/uL Eos # (Auto) (0.0-0.7) K/uL Baso # (Auto) (0.0-0.2) K/uL Neutrophils % (Manual) (50-75) % Lymphocytes % (Manual) (20-40) % Monocytes % (Manual) (0-10) % Platelet Estimate (NORMAL) Polychromasia Hypochromasia (manual) APTT (21-34) SECONDS Sodium (132-148) mmol/L Potassium (3.6-5.2) mmol/L Chloride (98-107) mmol/L Carbon Dioxide (22-30) mmol/L Anion Gap (10-20) BUN (9-20) mg/dL Creatinine (0.8-1.5) mg/dL Est GFR ( Amer) Est GFR (Non-Af Amer) POC Glucose (mg/dL) 189 H 191 H 193 H (65-110) mg/dL Random Glucose (75-110) mg/dL Calcium (8.6-10.4) mg/dl Phosphorus (2.5-4.5) mg/dL Magnesium (1.6-2.3) mg/dL Total Bilirubin (0.2-1.3) mg/dL AST (17-59) U/L ALT (21-72) U/L Alkaline Phosphatase (38-126) U/L Total Protein (6.3-8.3) g/dL Albumin (3.5-5.0) g/dL Globulin (2.2-3.9) gm/dL Albumin/Globulin Ratio (1.0-2.1) Laboratory Results - last 24 hr 04/04/18 04/04/18 04/04/18 11:17 12:21 16:27 WBC RBC Hgb Hct MCV MCH MCHC RDW Plt Count MPV Neut % (Auto) Lymph % (Auto) [place] % (Auto) Eos % (Auto) Baso % (Auto) Neut # (Auto) Lymph # (Auto) [place] # (Auto) Eos # (Auto) Baso # (Auto) Neutrophils % (Manual) Lymphocytes % (Manual) Monocytes % (Manual) Platelet Estimate Polychromasia Hypochromasia (manual) APTT Sodium Potassium Chloride Carbon Dioxide Anion Gap BUN Creatinine Est GFR ( Amer) Est GFR (Non-Af Amer) POC Glucose (mg/dL) 193 H 191 H 189 H Random Glucose Calcium Phosphorus Magnesium Total Bilirubin AST ALT Alkaline Phosphatase Total Protein Albumin Globulin Albumin/Globulin Ratio 04/04/18 04/04/18 04/04/18 20:16 21:12 23:23 WBC RBC Hgb Hct MCV MCH MCHC RDW Plt Count MPV Neut % (Auto) Lymph % (Auto) [place] % (Auto) Eos % (Auto) Baso % (Auto) Neut # (Auto) Lymph # (Auto) [place] # (Auto) Eos # (Auto) Baso # (Auto) Neutrophils % (Manual) Lymphocytes % (Manual) Monocytes % (Manual) Platelet Estimate Polychromasia Hypochromasia (manual) APTT 34 D Sodium Potassium Chloride Carbon Dioxide Anion Gap BUN Creatinine Est GFR ( Amer) Est GFR (Non-Af Amer) POC Glucose (mg/dL) 186 H 201 H Random Glucose Calcium Phosphorus Magnesium Total Bilirubin AST ALT Alkaline Phosphatase Total Protein Albumin Globulin Albumin/Globulin Ratio 04/05/18 04/05/18 04/05/18 05:09 05:09 05:09 WBC 15.5 H RBC 2.99 L Hgb 9.2 L Hct 27.8 L MCV 92.9 MCH 30.7 MCHC 33.1 RDW 14.7 H Plt Count 158 MPV 8.3 Neut % (Auto) 91.1 H Lymph % (Auto) 5.6 L [place] % (Auto) 2.7 Eos % (Auto) 0.4 Baso % (Auto) 0.2 Neut # (Auto) 14.1 H Lymph # (Auto) 0.9 L [place] # (Auto) 0.4 Eos # (Auto) 0.1 Baso # (Auto) 0.0 Neutrophils % (Manual) 88 H Lymphocytes % (Manual) 9 L Monocytes % (Manual) 3 Platelet Estimate Normal Polychromasia Slight Hypochromasia (manual) Slight APTT 67 H D Sodium 136 Potassium 3.6 Chloride 103 Carbon Dioxide 26 Anion Gap 10 BUN 81 H Creatinine 2.2 H Est GFR ( Amer) 36 Est GFR (Non-Af Amer) 29 POC Glucose (mg/dL) Random Glucose 158 H Calcium 7.2 L Phosphorus 3.3 Magnesium 2.3 Total Bilirubin 0.6 AST 27 ALT 29 Alkaline Phosphatase 59 Total Protein 4.6 L Albumin 2.2 L Globulin 2.4 Albumin/Globulin Ratio 0.9 L 04/05/18 04/05/18 04/05/18 06:19 07:40 10:29 WBC RBC Hgb Hct MCV MCH MCHC RDW Plt Count MPV Neut % (Auto) Lymph % (Auto) [place] % (Auto) Eos % (Auto) Baso % (Auto) Neut # (Auto) Lymph # (Auto) [place] # (Auto) Eos # (Auto) Baso # (Auto) Neutrophils % (Manual) Lymphocytes % (Manual) Monocytes % (Manual) Platelet Estimate Polychromasia Hypochromasia (manual) APTT 90 H D Sodium Potassium Chloride Carbon Dioxide Anion Gap BUN Creatinine Est GFR ( Amer) Est GFR (Non-Af Amer) POC Glucose (mg/dL) 174 H 179 H Random Glucose Calcium Phosphorus Magnesium Total Bilirubin AST ALT Alkaline Phosphatase Total Protein Albumin Globulin Albumin/Globulin Ratio Fingerstick Blood Sugar Results: 172 Critical Care Progress Note - Nutrition Nutrition: Nutrition Category Date Time Status Soft [Dysphagia/Modified Consistency Diet] [DIET] Diets 04/04/18 Dinner Active Assessment/Plan - Assessment and Plan (Free Text) Assessment: This is a 72 year old male with PMHx of arthritis, history of colon polyps, kidney stones, renal insufficiency, glaucoma s/p partial colectomy brought by EMS as aptient fell out of his chair. Admitted for severe sepsis, septic shock 2 /2 bilateral lower extremity cellulitis, metabolic encephalopathy 2/2 ARF ( severe metabolic acidosis and uremia), and atrial fibrillation with RVR. Plan: Neuro: GCS: 12 (E3, V4, M5) A: AMS - Head CT - negative A: Metabolic Encephalopathy - Likely 2/2 uremia and severe metabolic acidosis from ARF Cardio: A: New Onset Atrial Fibrillation with RVR - Was given digoxin, verapamil - Currently on off amio and verapamil drip - now Amio 200mg PO Q12 - TSH, Free T4 - WNL - ECHO: LVEF 60-65%, LVH, sclerotic trileaflet aortic valve. A: Hypotension - Currently on Vaso - titrating GI: A: Diarrhea - Started on vanco, flagyl - Cdiff negative, stool studies pending A: Cholelithiasis - CT chest/ab/pel: No evidence of pneumonia or empyema. Possible cholelithiasis. Correlate with ultrasound examination. Status post subtotal colectomy. Mural thickening of small bowel loops in the right lower quadrant. Nonspecific finding. Small hiatal hernia. Bilateral gynecomastia. Stable left adrenal adenoma. Small left renal cortical cyst. - Abdominal US: Cholelithiasis with prominent gallbladder calculus up to 2.3 cm at the neck of the gallbladde, additional calculus at the neck of the gallbladder measuring 1.3 cm. CBD 4.8mm. - T. bili now 0.8 A: Hx of Colon CA s/p subtotal colectomy? Endo: A: T2DM - Accuchecks, ISS - A1C 7.2 Renal: A: Acute Renal Failure with severe metabolic acidosis, hyperkalemia -- Dr. Luna consulted - Right Shiley placed 04/02 - Received dialysis 04/02 - Started on Bicarb drip @ 75cc/hr - Now HD TTS ID: A: Septic Shock -- ID consulted, Dr. Valdez -- Wound Care - 2/2 bilateral lower extremity cellulitis and ?? CDiff - Louis cultured- negative to date, other than wound culture - Wound Culture: Serratia Marcescens - Started on Meropenem, Flagyl, and Vanco Q48H 04/02/18, vanco trough 14 A: Bilateral Lower Extremity Cellulitis - Venous dopplers ordered - NEGATIVE FOR DVT - Xray - negative for osteo Prophylaxis: - Pepcid - SCDs c/i, Heparin Q8H - Florastor started - PT/ OT - POLST form filled out: Patient is DNR/DNI - Consent: Fredo Bowden, , [place] "[place]ls[place]" [phone] - Case management for assisted placement DW Terri Garcia DO, PGY-1 <Ryan Mike - Last Filed: 04/05/18 14:36> CCU Objective - Vital Signs / Intake & Output Vital Signs (Last 4 hours): Vital Signs Temp Pulse Resp BP Pulse Ox 04/05/18 14:00 97 H 15 100 04/05/18 13:58 90 18 100/53 L 100 04/05/18 13:43 85 14 04/05/18 13:28 83 13 98/51 L 100 04/05/18 13:13 102/58 L 04/05/18 13:07 95 H 19 98/51 L 98 04/05/18 13:05 98/51 L 04/05/18 12:58 95/49 L 04/05/18 12:43 92 H 18 99/51 L 04/05/18 12:28 79 15 96/53 L 04/05/18 12:13 99 H 18 88/50 L 97 04/05/18 12:00 98.9 F 91 H 15 04/05/18 11:58 85 18 83/46 L 94 L 04/05/18 11:45 98 H 20 95/51 L 100 04/05/18 11:28 101 H 16 98 04/05/18 11:13 104 H 18 84 L 04/05/18 11:00 98 H 21 81 L 04/05/18 10:58 96 H 22 99 04/05/18 10:43 106 H 20 83/40 L 100 04/05/18 10:42 96 H 18 86 L 04/05/18 10:40 99 H 22 96 04/05/18 10:29 95 H 18 92/41 L 71 L Intake and Output (Last 8hrs): Intake & Output 04/04/18 04/05/18 04/05/18 22:59 06:59 14:59 Intake Total 1266.2 1529.2 361.6 Output Total 240 295 195 Balance 1026.2 1234.2 166.6 Weight 239 lb 237 lb Intake: IV 250 41.4 Intake, IV Amount 466.2 839.2 320.2 Left Hand 239 700 200 RIGHT FEM. Y 19.2 19.2 14.0 Right Fem. PB 100 Right Forearm 108 120 106.2 Oral 800 440 Output: Urine 240 295 195 Urethral (Wall) 240 295 195 Emesis 0 Other: # Bowel Movements 0 1 - Medications Active Medications: Active Medications Generic Name Dose Route Start Last Admin Trade Name Freq PRN Reason Stop Dose Admin Amiodarone HCl 200 mg 04/04/18 11:00 04/05/18 10:30 Cordarone PO 200 mg Q12 KARAN Administration Aspirin 81 mg 04/05/18 10:15 04/05/18 10:29 Aspirin Chewable PO 81 mg DAILY KARAN Administration Dextrose 0 ml 04/03/18 12:00 Dextrose 50% Inj IV STAT PRN Hypoglycemia Protocol Protocol Dextrose 0 gm 04/03/18 12:00 Glutose 15 PO ONCE PRN Hypoglycemia Protocol Protocol Glucagon 0 mg 04/03/18 12:00 Glucagen Diagnostic Kit IM STAT PRN Hypoglycemia Protocol Protocol Meropenem 500 mg/ Sodium 100 mls @ 100 mls/hr 04/03/18 06:00 04/05/18 14:23 Chloride IVPB 100 mls/hr Q8 KARAN Administration Protocol Metronidazole 500 mg in 100 mls @ 100 mls/hr 04/02/18 22:00 04/05/18 13:05 Flagyl IVPB 100 mls/hr Q8 KARAN Administration Protocol Vancomycin/Sodium Chloride 1 gm in 200 mls @ 133.333 mls/hr 04/05/18 08:30 07:43 Vancomycin 1 Gm/Ns 200 Ml IVPB 133.333 mls/hr Q48H KARAN Administration Protocol Dextrose 1,000 mls @ 0 mls/hr 04/03/18 12:00 Dextrose 5% In Water 1000 Ml IV .Q0M PRN Hypoglycemia Protocol Protocol Per Protocol Heparin Sodium/Sodium Chloride 25,000 units in 250 mls @ 15.177 mls/hr 21:00 04/05/18 06:30 Heparin 46441 Units/250ml 1/2 Normal Saline IV 14 units/kg/hr .[id number] PRN 15.177 mls/hr PROTOCOL Administration Protocol 14 UNITS/KG/HR Vasopressin 40 units/ Dextrose 40 mls @ 2.4 mls/hr 04/05/18 08:43 04/05/18 13 :54 IV 0.04 units/min .[id number] PRN 2.4 mls/hr PER TITRATION PROTOCOL Titration Protocol 0.04 UNITS/MIN Sodium Chloride 1,000 mls @ 100 mls/hr 04/05/18 14:15 Sodium Chloride 0.9% IV 04/06/18 00:14 .Q10H KARAN Sodium Chloride 1,000 mls @ 1,000 mls/hr 04/05/18 14:05 Sodium Chloride 0.9% IV 04/05/18 15:04 .Q1H ONE Insulin Human Regular 0 unit 04/03/18 14:15 04/05/18 12:46 Novolin R SC 2 units ACHS KARAN Administration Protocol Pantoprazole Sodium 40 mg 04/06/18 10:00 Protonix Ec Tab PO DAILY KARAN Saccharomyces Boulardii 250 mg 04/03/18 10:00 04/05/18 10:30 Florastor PO 250 mg Q12 KARAN Administration - Patient Studies Lab Studies: Microbiology Studies 04/02/18 15:50 Blood Culture - Preliminary Blood Pasteurella Multocida Gram Stain - Final 04/02/18 18:51 Gram Stain - Final Leg - Right Wound Culture - Final Serratia Marcescens Sphingomonas Paucimobilis 04/02/18 15:00 Blood Culture - Preliminary Blood Pasteurella Multocida Gram Stain - Final 04/03/18 14:00 Stool Culture - Final Stool NO SALMONELLA, SHIGELLA OR CAMPYLOBACTER ISOLATED. 04/02/18 16:54 Urine Culture - Final Urine,Catheterized No Growth (<1,000 CFU/ML) Lab Studies 04/05/18 04/05/18 04/05/18 Range/Units 11:45 10:29 07:40 WBC (4.8-10.8) K/uL RBC (4.40-5.90) Mil/uL Hgb (12.0-18.0) g/dL Hct (35.0-51.0) % MCV (80.0-94.0) fL MCH (27.0-31.0) pg MCHC (33.0-37.0) g/dL RDW (11.5-14.5) % Plt Count (130-400) K/uL MPV (7.2-11.7) fL Neut % (Auto) (50.0-75.0) % Lymph % (Auto) (20.0-40.0) % [place] % (Auto) (0.0-10.0) % Eos % (Auto) (0.0-4.0) % Baso % (Auto) (0.0-2.0) % Neut # (Auto) (1.8-7.0) K/uL Lymph # (Auto) (1.0-4.3) K/uL [place] # (Auto) (0.0-0.8) K/uL Eos # (Auto) (0.0-0.7) K/uL Baso # (Auto) (0.0-0.2) K/uL Neutrophils % (Manual) (50-75) % Lymphocytes % (Manual) (20-40) % Monocytes % (Manual) (0-10) % Platelet Estimate (NORMAL) Polychromasia Hypochromasia (manual) APTT 90 H D (21-34) SECONDS Sodium (132-148) mmol/L Potassium (3.6-5.2) mmol/L Chloride (98-107) mmol/L Carbon Dioxide (22-30) mmol/L Anion Gap (10-20) BUN (9-20) mg/dL Creatinine (0.8-1.5) mg/dL Est GFR ( Amer) Est GFR (Non-Af Amer) POC Glucose (mg/dL) 231 H 179 H (65-110) mg/dL Random Glucose (75-110) mg/dL Calcium (8.6-10.4) mg/dl Phosphorus (2.5-4.5) mg/dL Magnesium (1.6-2.3) mg/dL Total Bilirubin (0.2-1.3) mg/dL AST (17-59) U/L ALT (21-72) U/L Alkaline Phosphatase (38-126) U/L Total Protein (6.3-8.3) g/dL Albumin (3.5-5.0) g/dL Globulin (2.2-3.9) gm/dL Albumin/Globulin Ratio (1.0-2.1) 04/05/18 04/05/18 04/05/18 Range/Units 06:19 05:09 05:09 WBC (4.8-10.8) K/uL RBC (4.40-5.90) Mil/uL Hgb (12.0-18.0) g/dL Hct (35.0-51.0) % MCV (80.0-94.0) fL MCH (27.0-31.0) pg MCHC (33.0-37.0) g/dL RDW (11.5-14.5) % Plt Count (130-400) K/uL MPV (7.2-11.7) fL Neut % (Auto) (50.0-75.0) % Lymph % (Auto) (20.0-40.0) % [place] % (Auto) (0.0-10.0) % Eos % (Auto) (0.0-4.0) % Baso % (Auto) (0.0-2.0) % Neut # (Auto) (1.8-7.0) K/uL Lymph # (Auto) (1.0-4.3) K/uL [place] # (Auto) (0.0-0.8) K/uL Eos # (Auto) (0.0-0.7) K/uL Baso # (Auto) (0.0-0.2) K/uL Neutrophils % (Manual) (50-75) % Lymphocytes % (Manual) (20-40) % Monocytes % (Manual) (0-10) % Platelet Estimate (NORMAL) Polychromasia Hypochromasia (manual) APTT 67 H D (21-34) SECONDS Sodium 136 (132-148) mmol/L Potassium 3.6 (3.6-5.2) mmol/L Chloride 103 (98-107) mmol/L Carbon Dioxide 26 (22-30) mmol/L Anion Gap 10 (10-20) BUN 81 H (9-20) mg/dL Creatinine 2.2 H (0.8-1.5) mg/dL Est GFR ( Amer) 36 Est GFR (Non-Af Amer) 29 POC Glucose (mg/dL) 174 H (65-110) mg/dL Random Glucose 158 H (75-110) mg/dL Calcium 7.2 L (8.6-10.4) mg/dl Phosphorus 3.3 (2.5-4.5) mg/dL Magnesium 2.3 (1.6-2.3) mg/dL Total Bilirubin 0.6 (0.2-1.3) mg/dL AST 27 (17-59) U/L ALT 29 (21-72) U/L Alkaline Phosphatase 59 (38-126) U/L Total Protein 4.6 L (6.3-8.3) g/dL Albumin 2.2 L (3.5-5.0) g/dL Globulin 2.4 (2.2-3.9) gm/dL Albumin/Globulin Ratio 0.9 L (1.0-2.1) 04/05/18 04/04/18 04/04/18 Range/Units 05:09 23:23 21:12 WBC 15.5 H (4.8-10.8) K/uL RBC 2.99 L (4.40-5.90) Mil/uL Hgb 9.2 L (12.0-18.0) g/dL Hct 27.8 L (35.0-51.0) % MCV 92.9 (80.0-94.0) fL MCH 30.7 (27.0-31.0) pg MCHC 33.1 (33.0-37.0) g/dL RDW 14.7 H (11.5-14.5) % Plt Count 158 (130-400) K/uL MPV 8.3 (7.2-11.7) fL Neut % (Auto) 91.1 H (50.0-75.0) % Lymph % (Auto) 5.6 L (20.0-40.0) % [place] % (Auto) 2.7 (0.0-10.0) % Eos % (Auto) 0.4 (0.0-4.0) % Baso % (Auto) 0.2 (0.0-2.0) % Neut # (Auto) 14.1 H (1.8-7.0) K/uL Lymph # (Auto) 0.9 L (1.0-4.3) K/uL [place] # (Auto) 0.4 (0.0-0.8) K/uL Eos # (Auto) 0.1 (0.0-0.7) K/uL Baso # (Auto) 0.0 (0.0-0.2) K/uL Neutrophils % (Manual) 88 H (50-75) % Lymphocytes % (Manual) 9 L (20-40) % Monocytes % (Manual) 3 (0-10) % Platelet Estimate Normal (NORMAL) Polychromasia Slight Hypochromasia (manual) Slight APTT (21-34) SECONDS Sodium (132-148) mmol/L Potassium (3.6-5.2) mmol/L Chloride (98-107) mmol/L Carbon Dioxide (22-30) mmol/L Anion Gap (10-20) BUN (9-20) mg/dL Creatinine (0.8-1.5) mg/dL Est GFR ( Amer) Est GFR (Non-Af Amer) POC Glucose (mg/dL) 201 H 186 H (65-110) mg/dL Random Glucose (75-110) mg/dL Calcium (8.6-10.4) mg/dl Phosphorus (2.5-4.5) mg/dL Magnesium (1.6-2.3) mg/dL Total Bilirubin (0.2-1.3) mg/dL AST (17-59) U/L ALT (21-72) U/L Alkaline Phosphatase (38-126) U/L Total Protein (6.3-8.3) g/dL Albumin (3.5-5.0) g/dL Globulin (2.2-3.9) gm/dL Albumin/Globulin Ratio (1.0-2.1) 04/04/18 04/04/18 Range/Units 20:16 16:27 WBC (4.8-10.8) K/uL RBC (4.40-5.90) Mil/uL Hgb (12.0-18.0) g/dL Hct (35.0-51.0) % MCV (80.0-94.0) fL MCH (27.0-31.0) pg MCHC (33.0-37.0) g/dL RDW (11.5-14.5) % Plt Count (130-400) K/uL MPV (7.2-11.7) fL Neut % (Auto) (50.0-75.0) % Lymph % (Auto) (20.0-40.0) % [place] % (Auto) (0.0-10.0) % Eos % (Auto) (0.0-4.0) % Baso % (Auto) (0.0-2.0) % Neut # (Auto) (1.8-7.0) K/uL Lymph # (Auto) (1.0-4.3) K/uL [place] # (Auto) (0.0-0.8) K/uL Eos # (Auto) (0.0-0.7) K/uL Baso # (Auto) (0.0-0.2) K/uL Neutrophils % (Manual) (50-75) % Lymphocytes % (Manual) (20-40) % Monocytes % (Manual) (0-10) % Platelet Estimate (NORMAL) Polychromasia Hypochromasia (manual) APTT 34 D (21-34) SECONDS Sodium (132-148) mmol/L Potassium (3.6-5.2) mmol/L Chloride (98-107) mmol/L Carbon Dioxide (22-30) mmol/L Anion Gap (10-20) BUN (9-20) mg/dL Creatinine (0.8-1.5) mg/dL Est GFR ( Amer) Est GFR (Non-Af Amer) POC Glucose (mg/dL) 189 H (65-110) mg/dL Random Glucose (75-110) mg/dL Calcium (8.6-10.4) mg/dl Phosphorus (2.5-4.5) mg/dL Magnesium (1.6-2.3) mg/dL Total Bilirubin (0.2-1.3) mg/dL AST (17-59) U/L ALT (21-72) U/L Alkaline Phosphatase (38-126) U/L Total Protein (6.3-8.3) g/dL Albumin (3.5-5.0) g/dL Globulin (2.2-3.9) gm/dL Albumin/Globulin Ratio (1.0-2.1) Laboratory Results - last 24 hr 04/04/18 04/04/18 04/04/18 16:27 20:16 21:12 WBC RBC Hgb Hct MCV MCH MCHC RDW Plt Count MPV Neut % (Auto) Lymph % (Auto) [place] % (Auto) Eos % (Auto) Baso % (Auto) Neut # (Auto) Lymph # (Auto) [place] # (Auto) Eos # (Auto) Baso # (Auto) Neutrophils % (Manual) Lymphocytes % (Manual) Monocytes % (Manual) Platelet Estimate Polychromasia Hypochromasia (manual) APTT 34 D Sodium Potassium Chloride Carbon Dioxide Anion Gap BUN Creatinine Est GFR ( Amer) Est GFR (Non-Af Amer) POC Glucose (mg/dL) 189 H 186 H Random Glucose Calcium Phosphorus Magnesium Total Bilirubin AST ALT Alkaline Phosphatase Total Protein Albumin Globulin Albumin/Globulin Ratio 04/04/18 04/05/18 04/05/18 23:23 05:09 05:09 WBC 15.5 H RBC 2.99 L Hgb 9.2 L Hct 27.8 L MCV 92.9 MCH 30.7 MCHC 33.1 RDW 14.7 H Plt Count 158 MPV 8.3 Neut % (Auto) 91.1 H Lymph % (Auto) 5.6 L [place] % (Auto) 2.7 Eos % (Auto) 0.4 Baso % (Auto) 0.2 Neut # (Auto) 14.1 H Lymph # (Auto) 0.9 L [place] # (Auto) 0.4 Eos # (Auto) 0.1 Baso # (Auto) 0.0 Neutrophils % (Manual) 88 H Lymphocytes % (Manual) 9 L Monocytes % (Manual) 3 Platelet Estimate Normal Polychromasia Slight Hypochromasia (manual) Slight APTT Sodium 136 Potassium 3.6 Chloride 103 Carbon Dioxide 26 Anion Gap 10 BUN 81 H Creatinine 2.2 H Est GFR ( Amer) 36 Est GFR (Non-Af Amer) 29 POC Glucose (mg/dL) 201 H Random Glucose 158 H Calcium 7.2 L Phosphorus 3.3 Magnesium 2.3 Total Bilirubin 0.6 AST 27 ALT 29 Alkaline Phosphatase 59 Total Protein 4.6 L Albumin 2.2 L Globulin 2.4 Albumin/Globulin Ratio 0.9 L 04/05/18 04/05/18 04/05/18 05:09 06:19 07:40 WBC RBC Hgb Hct MCV MCH MCHC RDW Plt Count MPV Neut % (Auto) Lymph % (Auto) [place] % (Auto) Eos % (Auto) Baso % (Auto) Neut # (Auto) Lymph # (Auto) [place] # (Auto) Eos # (Auto) Baso # (Auto) Neutrophils % (Manual) Lymphocytes % (Manual) Monocytes % (Manual) Platelet Estimate Polychromasia Hypochromasia (manual) APTT 67 H D Sodium Potassium Chloride Carbon Dioxide Anion Gap BUN Creatinine Est GFR ( Amer) Est GFR (Non-Af Amer) POC Glucose (mg/dL) 174 H 179 H Random Glucose Calcium Phosphorus Magnesium Total Bilirubin AST ALT Alkaline Phosphatase Total Protein Albumin Globulin Albumin/Globulin Ratio 04/05/18 04/05/18 10:29 11:45 WBC RBC Hgb Hct MCV MCH MCHC RDW Plt Count MPV Neut % (Auto) Lymph % (Auto) [place] % (Auto) Eos % (Auto) Baso % (Auto) Neut # (Auto) Lymph # (Auto) [place] # (Auto) Eos # (Auto) Baso # (Auto) Neutrophils % (Manual) Lymphocytes % (Manual) Monocytes % (Manual) Platelet Estimate Polychromasia Hypochromasia (manual) APTT 90 H D Sodium Potassium Chloride Carbon Dioxide Anion Gap BUN Creatinine Est GFR ( Amer) Est GFR (Non-Af Amer) POC Glucose (mg/dL) 231 H Random Glucose Calcium Phosphorus Magnesium Total Bilirubin AST ALT Alkaline Phosphatase Total Protein Albumin Globulin Albumin/Globulin Ratio Critical Care Progress Note - Nutrition Nutrition: Nutrition Category Date Time Status Soft [Dysphagia/Modified Consistency Diet] [DIET] Diets 04/04/18 Dinner Active Soft [Dysphagia/Modified Consistency Diet] [DIET] Diets 04/05/18 Dinner Active Attending/Attestation - Attestation I have personally seen and examined this patient.: Yes I have fully participated in the care of the patient.: Yes I have reviewed all pertinent clinical information: Yes Notes (Text): 04/05/18 14:25 patient seen and examined in the intensive care unit. Patient condition improving HEMODIALYSIS and making good urine Continue IV antibiotics taper off pressors Continue present medication for heart rate control Patient is alert and oriented Fair appetite
--- NOTE | 2018-04-05 12:15 | RAD ---
HISTORY: S/P PICC LINE INSERTION COMPARISON: 04/03/2018 FINDINGS: LUNGS: Questionable opacity at right base. Followup advised to rule out pneumonia. PLEURA: Minimal blunting both costophrenic angles. Chronic pleural thickening versus pleural effusion. No pneumothorax. CARDIOVASCULAR: New right PICC catheter terminates in the region of the superior vena cava. OSSEOUS STRUCTURES: No significant abnormalities. VISUALIZED UPPER ABDOMEN: Normal. OTHER FINDINGS: None. IMPRESSION: New right PICC catheter terminates in the region of the superior vena cava. Opacity at right base. Rule out pneumonia. Followup advised. Possible small bilateral pleural effusions.
--- NOTE | 2018-04-05 13:11 | CP.PCM.PN ---
Subjective - Date & Time of Evaluation Date of Evaluation: 04/05/18 Time of Evaluation: 13:08 - Subjective Subjective: more alert s/p dialysis 04/04 UO> 1000ml now on small dose IV vaso on treatment for sepsis with IV ABs Objective - Vital Signs/Intake and Output Vital Signs (last 24 hours): Temp Pulse Resp BP Pulse Ox 98.9 F 79 15 96/53 L 97 04/05/18 12:00 04/05/18 12:28 04/05/18 12:28 04/05/18 12:28 04/05/18 12:13 Intake and Output: 04/05/18 04/05/18 06:59 18:59 Intake Total 2334.8 108.4 Output Total 405 85 Balance 1929.8 23.4 - Medications Medications: Current Medications Amiodarone HCl (Cordarone) 200 mg PO Q12 [facility] Last Admin: 04/05/18 10:30 Dose: 200 mg Aspirin (Aspirin Chewable) 81 mg PO DAILY [facility] Last Admin: 04/05/18 10:29 Dose: 81 mg Dextrose (Dextrose 50% Inj) 0 ml IV STAT PRN; Protocol PRN Reason: Hypoglycemia Protocol Dextrose (Glutose 15) 0 gm PO ONCE PRN; Protocol PRN Reason: Hypoglycemia Protocol Famotidine (Pepcid) 20 mg IVP DAILY [facility] Last Admin: 04/05/18 10:34 Dose: 20 mg Glucagon (Glucagen Diagnostic Kit) 0 mg IM STAT PRN; Protocol PRN Reason: Hypoglycemia Protocol Meropenem 500 mg/ Sodium (Chloride) 100 mls @ 100 mls/hr IVPB Q8 [facility] PRN Reason: Protocol Last Admin: 04/05/18 05:48 Dose: 100 mls/hr Metronidazole (Flagyl) 500 mg in 100 mls @ 100 mls/hr IVPB Q8 [facility] PRN Reason: Protocol Last Admin: 04/05/18 05:14 Dose: 100 mls/hr Vancomycin/Sodium Chloride (Vancomycin 1 Gm/Ns 200 Ml) 1 gm in 200 mls @ 133.333 mls/hr IVPB Q48H [facility] PRN Reason: Protocol Last Admin: 04/05/18 07:43 Dose: 133.333 mls/hr Dextrose (Dextrose 5% In Water 1000 Ml) 1,000 mls @ 0 mls/hr IV .Q0M PRN; Protocol; Per Protocol PRN Reason: Hypoglycemia Protocol Heparin Sodium/Sodium Chloride (Heparin 35792 Units/250ml 1/2 Normal Saline) 25 ,000 units in 250 mls @ 15.177 mls/hr IV .[id number] PRN; Protocol; 14 UNITS/KG/HR PRN Reason: PROTOCOL Last Admin: 04/05/18 06:30 Dose: 14 units/kg/hr, 15.177 mls/hr Vasopressin 40 units/ Dextrose 40 mls @ 2.4 mls/hr IV .[id number] PRN; Protocol; 0.04 UNITS/MIN PRN Reason: PER TITRATION PROTOCOL Last Titration: 04/05/18 12:04 Dose: 0.03 units/min, 1.8 mls/hr Insulin Human Regular (Novolin R) 0 unit SC ACHS [facility] PRN Reason: Protocol Last Admin: 04/05/18 12:46 Dose: 2 units Saccharomyces Boulardii (Florastor) 250 mg PO Q12 [facility] Last Admin: 04/05/18 10:30 Dose: 250 mg - Labs Labs: 04/05/18 05:09 04/05/18 05:09 PT 13.3 SECONDS (9.7-12.2) H 04/02/18 15:25 INR 1.2 04/02/18 15:25 APTT 90 SECONDS (21-34) H D 04/05/18 10:29 - Constitutional Appears: No Acute Distress, Chronically Ill - Head Exam Head Exam: ATRAUMATIC, NORMAL INSPECTION - Eye Exam Eye Exam: EOMI, Normal appearance - Neck Exam Neck Exam: Normal Inspection. absent: Tenderness - Respiratory Exam Respiratory Exam: Rhonchi, NORMAL BREATHING PATTERN - Cardiovascular Exam Cardiovascular Exam: Tachycardia, Irregular Rhythm - GI/Abdominal Exam GI & Abdominal Exam: Soft. absent: Tenderness - Extremities Exam Extremities Exam: Normal Inspection. absent: Tenderness - Neurological Exam Neurological Exam: Alert, CN II-XII Intact - Skin Skin Exam: Dry, Warm Assessment and Plan (1) TERRENCE (acute kidney injury) Status: Acute (2) Sepsis associated hypotension Status: Acute (3) Cellulitis of right leg Status: Acute (4) Chronic kidney disease, stage III (moderate) Status: Acute (5) Metabolic acidemia Status: Acute - Assessment and Plan (Free Text) Plan: hold dialysis for now IV ABs on amiodarone monitor lytes dialysis if needed
[2018-04-05] MEDS ORDERED: Sodium Chloride 0.9% 1,000 ML IV ONE (14:05)
[2018-04-05] MEDS ORDERED: Sodium Chloride 0.9% 1,000 ML IV SCH (14:15)
--- NOTE | 2018-04-05 15:41 | CP.PCM.PN ---
Subjective - Date & Time of Evaluation Date of Evaluation: 04/05/18 Time of Evaluation: 07:00 - Subjective Subjective: improving afebrile alert no diarrhea no fever less sob still on Pressors Objective - Vital Signs/Intake and Output Vital Signs (last 24 hours): Temp Pulse Resp BP Pulse Ox 98.9 F 97 H 15 100/53 L 100 04/05/18 12:00 04/05/18 14:00 04/05/18 14:00 04/05/18 13:58 04/05/18 14:00 Intake and Output: 04/05/18 04/05/18 06:59 18:59 Intake Total 2334.8 956.2 Output Total 405 250 Balance 1929.8 706.2 - Medications Medications: Current Medications Amiodarone HCl (Cordarone) 200 mg PO Q12 [facility] Last Admin: 04/05/18 10:30 Dose: 200 mg Aspirin (Aspirin Chewable) 81 mg PO DAILY [facility] Last Admin: 04/05/18 10:29 Dose: 81 mg Dextrose (Dextrose 50% Inj) 0 ml IV STAT PRN; Protocol PRN Reason: Hypoglycemia Protocol Dextrose (Glutose 15) 0 gm PO ONCE PRN; Protocol PRN Reason: Hypoglycemia Protocol Glucagon (Glucagen Diagnostic Kit) 0 mg IM STAT PRN; Protocol PRN Reason: Hypoglycemia Protocol Meropenem 500 mg/ Sodium (Chloride) 100 mls @ 100 mls/hr IVPB Q8 [facility] PRN Reason: Protocol Last Admin: 04/05/18 14:23 Dose: 100 mls/hr Metronidazole (Flagyl) 500 mg in 100 mls @ 100 mls/hr IVPB Q8 [facility] PRN Reason: Protocol Last Admin: 04/05/18 13:05 Dose: 100 mls/hr Vancomycin/Sodium Chloride (Vancomycin 1 Gm/Ns 200 Ml) 1 gm in 200 mls @ 133.333 mls/hr IVPB Q48H [facility] PRN Reason: Protocol Last Admin: 04/05/18 07:43 Dose: 133.333 mls/hr Dextrose (Dextrose 5% In Water 1000 Ml) 1,000 mls @ 0 mls/hr IV .Q0M PRN; Protocol; Per Protocol PRN Reason: Hypoglycemia Protocol Heparin Sodium/Sodium Chloride (Heparin 70026 Units/250ml 1/2 Normal Saline) 25 ,000 units in 250 mls @ 15.177 mls/hr IV .[id number] PRN; Protocol; 14 UNITS/KG/HR PRN Reason: PROTOCOL Last Admin: 04/05/18 06:30 Dose: 14 units/kg/hr, 15.177 mls/hr Vasopressin 40 units/ Dextrose 40 mls @ 2.4 mls/hr IV .[id number] PRN; Protocol; 0.04 UNITS/MIN PRN Reason: PER TITRATION PROTOCOL Last Titration: 04/05/18 13:54 Dose: 0.04 units/min, 2.4 mls/hr Sodium Chloride (Sodium Chloride 0.9%) 1,000 mls @ 100 mls/hr IV .Q10H [facility] Stop: 04/06/18 00:14 Insulin Human Regular (Novolin R) 0 unit SC ACHS [facility] PRN Reason: Protocol Last Admin: 04/05/18 12:46 Dose: 2 units Pantoprazole Sodium (Protonix Ec Tab) 40 mg PO DAILY [facility] Saccharomyces Boulardii (Florastor) 250 mg PO Q12 [facility] Last Admin: 04/05/18 10:30 Dose: 250 mg - Labs Labs: 04/05/18 05:09 04/05/18 05:09 PT 13.3 SECONDS (9.7-12.2) H 04/02/18 15:25 INR 1.2 04/02/18 15:25 APTT 90 SECONDS (21-34) H D 04/05/18 10:29 - Constitutional Appears: Non-toxic, Chronically Ill - Head Exam Head Exam: NORMOCEPHALIC - Eye Exam Eye Exam: PERRL. absent: Scleral icterus - ENT Exam ENT Exam: Mucous Membranes Dry - Neck Exam Neck Exam: absent: Lymphadenopathy - Respiratory Exam Respiratory Exam: Decreased Breath Sounds, Rhonchi - Cardiovascular Exam Cardiovascular Exam: REGULAR RHYTHM - GI/Abdominal Exam GI & Abdominal Exam: Distended, Soft. absent: Tenderness - Rectal Exam Rectal Exam: Deferred - Exam Exam: NORMAL INSPECTION - Extremities Exam Extremities Exam: Pedal Edema, Tenderness. absent: Calf Tenderness - Back Exam Back Exam: absent: CVA tenderness (L), CVA tenderness (R) - Neurological Exam Neurological Exam: Alert, Awake, CN II-XII Intact, Oriented x3. absent: Normal Gait - Psychiatric Exam Psychiatric exam: Depressed - Skin Skin Exam: Dry Assessment and Plan (1) TERRENCE (acute kidney injury) Status: Acute (2) Sepsis associated hypotension Status: Acute (3) Atrial fibrillation Status: Acute (4) Cellulitis of right leg Status: Acute (5) Chronic kidney disease, stage III (moderate) Status: Acute - Assessment and Plan (Free Text) Assessment: shock state possible TSS from infected leg wounds/ ulcers with maggots gram neg from wound cont iv antibiotics for min 14 days ( blood cultures not 100% sensitive )
--- NOTE | 2018-04-05 20:15 | CP.PCM.PN ---
Subjective - Date & Time of Evaluation Date of Evaluation: 04/05/18 Time of Evaluation: 18:40 - Subjective Subjective: Patient was seen and examined at 6:40 PM 04/05/18 ICU Bed 9 72 year old male who was admitted to the ICU on 04/02/18 for treatment of Severe Sepsis. Please see assessment and plans below for further details. Patient is awake today, answering questions, and following commands. Upon ROS gives the following complaints: My legs hurt NO other complaints upon FULL ROS Exam: General: Awake, Alert, and Oriented person, place but NOT to time (believes it is November and could not provide year) HEENT: NCA, EOMI, PERRLA, NO lymphadenopathy, NO thyromegaly, NO pharyngeal erythema/exudate, Nasal Turbinates are nonerythematous/nonedematous Cardio: NS1 and NS2, NO M/R/G Resp: CTA B/L, NO R/R/W with decreased breath sounds mid to lower lung rhodes GI: NT with NO guarding/rebound tenderness, Central obesity therefore liver and spleen could not be adequately palpated, Soft Ext: Bilateral UE pulses are strong and equal, Bilateral LE pulses could not be palpated, 2+ pitting edema of bilateral LE with erythema/warmth involving the ankles to the mid tibia bilaterally, multiple eschars present bilateral LE, open wound Right Anterior lower leg, NO more Maggots Neuro: CN II through XII are grossly intact Assessment/Plan 1) Severe Sepsis Septic Shock Assessment/Plan * Etiologies: b/l cellulitis over the legs (noted since 2017 available in the EMR) * Admitted to the ICU; further management per ICU * Code sepsis: 04/02/18 in the ED * On admission: hypotensive, temp 94 deg, wbc 52, lactate 3.3 * Consult Infectious Disease, Dr Valdez on board * CT chest/abd/pelvis w/o contrast: dependent atelectasis, mild cariomegaly, small hiatal hernia, subtle hypodensities in gallbladder (mass vs stone), 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, 1.5 cm left renal cyst, postoperative changes from bowel surgery, moderate stool in rectosigmoid colon, few mildly dilated small bowel loops * Abdomen U/S: hepatic parenchymal disease, gallstones * CT head w/o contrast: chronic microvascular changes, no focal deficit * C.Diff toxin negative * Urine Culture negative * Hepatitis Panel is negative * Wound Culture Right Leg shows Serratia marcescens and Sphingomonas paucimobilis * Blood Cx shows Pasteurella multocida Medications: * Meropenem 500mg IVP Q8H * Vancomycin 1g IV Q48H * Vasopressin drip * Will speak with ID about starting Cipro to cover the Sphingomonas * Will speak with Cardiology about getting AMANDA considering positive blood culture 2) Bilateral Lower Cellulitis Assessment/Plan * patient's legs are edematous, erythematous, and weeping and with maggots upon presentation (Dakin's solution x 2 were given and the maggots are gone) * Wound Culture Right Leg shows Serratia marcescens and Sphingomonas paucimobilis: he is on Meropenem to cover the Serratia and will speak with ID to see if we need to start Cipro to cover the Sphingomonas * Prior hx of cellulitis since 2017 noted in the EMR * Tib/Fib X Ray bilateral showed NO radiographic evidence of osteomyelitis * Infectious Disease Dr. Valdez * If podiatry consult warranted, please consult Dr. Johnnie Minor/Dr. To who has seen this patient in prior admission 3) Metabolic Encephalopathy Assessment/Plan * Etiology: sepsis, uremia, severe metabolic acidosis * emergent dialysis catheter placed by ICU on 04/02/18 * Nephrology (Dr. Luna) on board-->help appreciated * CT head w/o contrast: chronic microvascular changes, no focal deficit 4) Acute on Chronic Renal Insufficiency Severe Metabolic Acidosis Hyperkalemia Assessment/Plan * Nephrology (Dr. Luna) on board-->help appreciated * Note: history of nephrolithasis, prior hx of cystoscopy and stent insertion per EMR * Emergent HD through femoral catheter placed by ICU (right groin) on 04/02/18 * Bicarbonate drip: D5 W with 150 mEQ NaHCO3 at 75 ml/hr was discontinued on 5) Atrial Fibrillation w RVR Assessment/Plan * Cardiology (Dr. Henriquez) on board-->help appreciated * Patient was diagnosed with new onset atrial fibrillation last admission * Digoxin is < 0.4 04/03/18 * Echocardiogram 04/02/18: LA moderate dilation, mild concentric hypertrophy, EF 60-65%, normal diastolic filling * ASA 81 mg PO 1x/day * Amiodorone 200 mg PO Q12H * Heparin Drip for now for anticoagulation 6) History of colonic polyps History of partial colectecomy Assessment/Plan 7) Prior history of incarcerated hernia and small bowel obstruction Assessment/Plan * Noted in the EMR from patient's last hospitalization with Dr. Ceja who performed the surgery 8) Anemia Secondary to CKD Stage 4 * Monitor HgB/Hct 9) Prophylactic care * Contraindications to SCDS given cellulitis noted on bilateral legs * Heparin Drip * Wall * F/U Swallow Evaluation * Florastor 250 mg PO 2x/day Palliative Care Nurse Alba spoke with Son Troy (who was not present at time of my exam) 04/03/18: made DNR/DNI, POLST completed and in chart (FULL TREATMENT), would like patient to be placed in long term care phlebotomist care and not return home (where is lives with other son). [employer] to arrange for long term care phlebotomist care facility placement. Rocco Pollack D.O. Objective - Vital Signs/Intake and Output Vital Signs (last 24 hours): Temp Pulse Resp BP Pulse Ox 97.0 F L 86 17 112/57 L 100 04/05/18 16:00 04/05/18 19:28 04/05/18 19:28 04/05/18 19:28 04/05/18 19:28 Intake and Output: 04/05/18 04/06/18 18:59 06:59 Intake Total 2406.3 117.6 Output Total 335 30 Balance 2071.3 87.6 - Medications Medications: Current Medications Amiodarone HCl (Cordarone) 200 mg PO Q12 [facility] Last Admin: 04/05/18 10:30 Dose: 200 mg Aspirin (Aspirin Chewable) 81 mg PO DAILY [facility] Last Admin: 04/05/18 10:29 Dose: 81 mg Dextrose (Dextrose 50% Inj) 0 ml IV STAT PRN; Protocol PRN Reason: Hypoglycemia Protocol Dextrose (Glutose 15) 0 gm PO ONCE PRN; Protocol PRN Reason: Hypoglycemia Protocol Glucagon (Glucagen Diagnostic Kit) 0 mg IM STAT PRN; Protocol PRN Reason: Hypoglycemia Protocol Meropenem 500 mg/ Sodium (Chloride) 100 mls @ 100 mls/hr IVPB Q8 [facility] PRN Reason: Protocol Last Admin: 04/05/18 14:23 Dose: 100 mls/hr Vancomycin/Sodium Chloride (Vancomycin 1 Gm/Ns 200 Ml) 1 gm in 200 mls @ 133.333 mls/hr IVPB Q48H [facility] PRN Reason: Protocol Last Admin: 04/05/18 07:43 Dose: 133.333 mls/hr Dextrose (Dextrose 5% In Water 1000 Ml) 1,000 mls @ 0 mls/hr IV .Q0M PRN; Protocol; Per Protocol PRN Reason: Hypoglycemia Protocol Heparin Sodium/Sodium Chloride (Heparin 00824 Units/250ml 1/2 Normal Saline) 25 ,000 units in 250 mls @ 15.177 mls/hr IV .[id number] PRN; Protocol; 14 UNITS/KG/HR PRN Reason: PROTOCOL Last Admin: 04/05/18 06:30 Dose: 14 units/kg/hr, 15.177 mls/hr Vasopressin 40 units/ Dextrose 40 mls @ 2.4 mls/hr IV .[id number] PRN; Protocol; 0.04 UNITS/MIN PRN Reason: PER TITRATION PROTOCOL Last Titration: 04/05/18 17:07 Dose: 0.02 units/min, 1.2 mls/hr Sodium Chloride (Sodium Chloride 0.9%) 1,000 mls @ 100 mls/hr IV .Q10H [facility] Stop: 04/06/18 00:14 Last Admin: 04/05/18 16:30 Dose: 100 mls/hr Insulin Human Regular (Novolin R) 0 unit SC ACHS [facility] PRN Reason: Protocol Last Admin: 04/05/18 17:05 Dose: 2 units Pantoprazole Sodium (Protonix Ec Tab) 40 mg PO DAILY [facility] Saccharomyces Boulardii (Florastor) 250 mg PO Q12 [facility] Last Admin: 04/05/18 10:30 Dose: 250 mg - Labs Labs: 04/05/18 05:09 04/05/18 05:09 PT 13.3 SECONDS (9.7-12.2) H 04/02/18 15:25 INR 1.2 04/02/18 15:25 APTT 90 SECONDS (21-34) H D 04/05/18 10:29
--- NOTE | 2018-04-05 22:37 | CARD ---
APPROVED REPORT EKG Measurement Heart [id number] <Conclusion> Atrial fibrillation ST & T wave abnormality, consider inferolateral ischemia Abnormal ECG
--- NOTE | 2018-04-05 22:55 | CP.PCM.PN ---
Subjective - Date & Time of Evaluation Date of Evaluation: 04/05/18 Time of Evaluation: 10:10 - Subjective Subjective: Patient seen and evaluated Denies chest pain and dyspnea Review of Systems - Review of Systems Systems not reviewed;Unavailable: Altered Mental Status Review of Systems: Per son: - Constitutional Constitutional: Chills, Fever, Lethargy, Malaise - Cardiovascular Cardiovascular: absent: Chest Pain - Respiratory Respiratory: Dyspnea - Gastrointestinal Gastrointestinal: absent: Abdominal Pain - Genitourinary Genitourinary: absent: Dysuria Physical Exam - Constitutional Appears: In Acute Distress - Head Exam Head Exam: ATRAUMATIC, NORMAL INSPECTION - Eye Exam Eye Exam: EOMI Pupil Exam: PERRL - ENT Exam ENT Exam: Mucous Membranes Dry - Neck Exam Neck exam: Positive for: Normal Inspection - Respiratory Exam Respiratory Exam: Clear to Auscultation Bilateral, NORMAL BREATHING PATTERN. absent: Rales, Rhonchi, Wheezes - Cardiovascular Exam Cardiovascular Exam: Tachycardia, +S1, +S2. absent: JVD - GI/Abdominal Exam GI & Abdominal Exam: Diminished Bowel Sounds, Soft - Extremities Exam Extremities exam: Negative for: normal capillary refill - Neurological Exam Neurological exam: Altered Objective - Vital Signs/Intake and Output Vital Signs (last 24 hours): Temp Pulse Resp BP Pulse Ox 97.0 F L 86 17 112/57 L 100 04/05/18 16:00 04/05/18 19:28 04/05/18 19:28 04/05/18 19:28 04/05/18 19:28 Intake and Output: 04/05/18 04/06/18 18:59 06:59 Intake Total 2406.3 367.6 Output Total 335 30 Balance 2071.3 337.6 - Medications Medications: Current Medications Amiodarone HCl (Cordarone) 200 mg PO Q12 [facility] Last Admin: 04/05/18 22:29 Dose: 200 mg Aspirin (Aspirin Chewable) 81 mg PO DAILY [facility] Last Admin: 04/05/18 10:29 Dose: 81 mg Dextrose (Dextrose 50% Inj) 0 ml IV STAT PRN; Protocol PRN Reason: Hypoglycemia Protocol Dextrose (Glutose 15) 0 gm PO ONCE PRN; Protocol PRN Reason: Hypoglycemia Protocol Glucagon (Glucagen Diagnostic Kit) 0 mg IM STAT PRN; Protocol PRN Reason: Hypoglycemia Protocol Meropenem 500 mg/ Sodium (Chloride) 100 mls @ 100 mls/hr IVPB Q8 [facility] PRN Reason: Protocol Last Admin: 04/05/18 22:29 Dose: 100 mls/hr Vancomycin/Sodium Chloride (Vancomycin 1 Gm/Ns 200 Ml) 1 gm in 200 mls @ 133.333 mls/hr IVPB Q48H [facility] PRN Reason: Protocol Last Admin: 04/05/18 07:43 Dose: 133.333 mls/hr Dextrose (Dextrose 5% In Water 1000 Ml) 1,000 mls @ 0 mls/hr IV .Q0M PRN; Protocol; Per Protocol PRN Reason: Hypoglycemia Protocol Heparin Sodium/Sodium Chloride (Heparin 45508 Units/250ml 1/2 Normal Saline) 25 ,000 units in 250 mls @ 15.177 mls/hr IV .[id number] PRN; Protocol; 14 UNITS/KG/HR PRN Reason: PROTOCOL Last Admin: 04/05/18 22:31 Dose: 14 units/kg/hr, 15.177 mls/hr Vasopressin 40 units/ Dextrose 40 mls @ 2.4 mls/hr IV .[id number] PRN; Protocol; 0.04 UNITS/MIN PRN Reason: PER TITRATION PROTOCOL Last Titration: 04/05/18 17:07 Dose: 0.02 units/min, 1.2 mls/hr Sodium Chloride (Sodium Chloride 0.9%) 1,000 mls @ 100 mls/hr IV .Q10H [facility] Stop: 04/06/18 00:14 Last Admin: 04/05/18 16:30 Dose: 100 mls/hr Insulin Human Regular (Novolin R) 0 unit SC ACHS [facility] PRN Reason: Protocol Last Admin: 04/05/18 22:33 Dose: Not Given Pantoprazole Sodium (Protonix Ec Tab) 40 mg PO DAILY [facility] Saccharomyces Boulardii (Florastor) 250 mg PO Q12 [facility] Last Admin: 04/05/18 22:28 Dose: 250 mg - Labs Labs: 04/05/18 05:09 04/05/18 05:09 PT 13.3 SECONDS (9.7-12.2) H 04/02/18 15:25 INR 1.2 04/02/18 15:25 APTT 90 SECONDS (21-34) H D 04/05/18 10:29 Assessment and Plan - Assessment and Plan (Free Text) Assessment: 72 year old male with a PMHx of arthritis, history of colon polyps, kidney stones, renal insufficiency, glaucoma s/p partial colectomy in 2014 with weakness, fevers for 1 week prior to presentation: SEVERE SEPSIS On admission: hypotensive, temp 94 deg, wbc 52, lactate 3.3 Consult Infectious Disease, Dr Courtney Buchanan serial serum lactate F/U CT chest/abd/pelvis w/o contrast F/U CT head w/o contrast F/U C.Diff toxin F/U Blood Cx, urine Cx, would Cx F/U Hep panel F/U procalcitonin Medications: Flagyl 500mg IVP Q8H Meropenem 500mg IVP Q8H Vancomycin 500mg PO QID Vancomycin 1g IV QD NS 500ml/hr LOWER EXTREMITY CELLULITS BILATERALLY F/U wound Cx of right leg Prior hx of cellulitis since 2016 Wound care center/Hyperbaric consult F/U xray of LE b/l METABOLIC ENCEPHALOPATHY Etiology: sepsis, uremia, severe metabolic acidosis emergent dialysis catheter placed by ICU Nephrology on board F/U CT head ACUTE RENAL FAILURE 2/2 to end organ damage from severe sepsis On admission BUN 150, Cr 6.2 Consult nephrology, Dr Luna Emergent HD through femoral catheter AFIB W/ RVR Consult Cardio, Dr Henriquez F/U Echo F/U Digoxin level Hold asa until CT head rules out bleed F/U hgbA1c, Lipid panel, TSH/Free T4 HYPERKALEMIC 2/2 to cell necrosis from poor tissue perfusion in setting of severe sepsis On admission: potassium 7.1 F/U serial troponins Calcium gluconate 4.65 meq given once Insulin Regular 10u IV given once ACIDOTIC Ph on admission: 6.87 Likely metabolic given elevated lactate Bicarb 1 amp given once Dextrose 5% with Bicarb 50 meq @ 100ml/hr ABNORMAL URINANALYSIS UA on admission: 1+ leuk esterase, wbc, 1+ blood LOWER EXTREMITY CELLULITS BILATERALLY F/U wound Cx of right leg Prior hx of cellulitis since 2017 Wound care center/Hyperbaric consult F/U xray of LE b/l ELEVATED PROBNP On admission: Pro-bnp 5000 ARF possibly a contributing factor F/U Echo Echo 08/2017: * Difficult study. EF 65%. Diastolic filling pressures normal. Aortic valve cannot comment. Poor study. PROPHYLAXIS SCDs contraindicated due to LE cellultis Original Note:
[2018-04-06] MEDS: Meropenem 500 MG in Sodium Chloride 0.9% 100 ML IVPB SCH ×3 (05:53→21:45)
[2018-04-06 06:34] LABS: BASO % 0.1 % (0.0-2.0); EOS # 0.1 K/uL (0.0-0.7); EOS % 0.6 % (0.0-4.0); HEMOGLOBIN 8.6 g/dL (12.0-18.0); LYMPH # 0.7 K/uL (1.0-4.3); LYMPH % 4.6 % (20.0-40.0); MEAN CELL VOLUME 93.2 fL (80.0-94.0); MEAN CORPUSCULAR HGB CONC 32.2 g/dL (33.0-37.0); MEAN PLATELET VOLUME 8.7 fL (7.2-11.7); MONO # 0.7 K/uL (0.0-0.8); MONO % 4.7 % (0.0-10.0); NEUT # 13.7 K/uL (1.8-7.0); NRBC % 0.1 % (0.0-2.0); PLATELET COUNT 148 K/uL (130-400); RBC 2.88 Mil/uL (4.40-5.90); RED CELL DISTRIBUTION WIDTH 14.7 % (11.5-14.5); WHITE BLOOD COUNT 15.2 K/uL (4.8-10.8)
[2018-04-06 06:38] LABS: ALB/GLOB RATIO 0.9 (1.0-2.1); ALBUMIN 2.1 g/dL (3.5-5.0); CALCIUM 7.2 mg/dl (8.6-10.4)
[2018-04-06 08:08] LABS: BANDS 5 % (0-2); EOSINOPHIL 1 % (0-4); LYMPHOCYTE 7 % (20-40); MONOCYTE 6 % (0-10); MYELOCYTE 2 % (0-0); NEUTROPHIL 79 % (50-75); PLATELET ESTIMATE NORMAL (NORMAL); TOTAL CELLS COUNTED 100
[2018-04-06 08:09] LABS: POIKILOCYTOSIS SLIGHT
[2018-04-06 08:10] LABS: OVALOCYTES SLIGHT
[2018-04-06] MEDS: (Novolin R) Insulin Human Regular 100 units/ml vial SC SCH ×4 (08:30→22:11)
[2018-04-06] MEDS: Magnesium Sulfate 1 gm in D5W 1 GM/100 ML BAG IVPB SCH ×2 (08:31→09:08)
--- NOTE | 2018-04-06 08:59 | CP.PCM.PN ---
Subjective - Date & Time of Evaluation Date of Evaluation: 04/06/18 Time of Evaluation: 08:57 - Subjective Subjective: Feels better; c/o LE weakness VP=[id number] creat decreasing- TERRENCE resolving K. mag being repleted Still on low dose pressors- BP improving though dialysis to be held Objective - Vital Signs/Intake and Output Vital Signs (last 24 hours): Temp Pulse Resp BP Pulse Ox 98.2 F 78 16 94/52 L 99 04/06/18 04:00 04/06/18 07:00 04/06/18 07:00 04/06/18 06:55 04/06/18 07:00 Intake and Output: 04/06/18 04/06/18 06:59 18:59 Intake Total 1919.2 17.6 Output Total 660 35 Balance 1259.2 -17.4 - Medications Medications: Current Medications Amiodarone HCl (Cordarone) 200 mg PO Q12 [facility] Last Admin: 04/05/18 22:29 Dose: 200 mg Aspirin (Aspirin Chewable) 81 mg PO DAILY [facility] Last Admin: 04/05/18 10:29 Dose: 81 mg Dextrose (Dextrose 50% Inj) 0 ml IV STAT PRN; Protocol PRN Reason: Hypoglycemia Protocol Dextrose (Glutose 15) 0 gm PO ONCE PRN; Protocol PRN Reason: Hypoglycemia Protocol Glucagon (Glucagen Diagnostic Kit) 0 mg IM STAT PRN; Protocol PRN Reason: Hypoglycemia Protocol Meropenem 500 mg/ Sodium (Chloride) 100 mls @ 100 mls/hr IVPB Q8 [facility] PRN Reason: Protocol Last Admin: 04/06/18 05:53 Dose: 100 mls/hr Vancomycin/Sodium Chloride (Vancomycin 1 Gm/Ns 200 Ml) 1 gm in 200 mls @ 133.333 mls/hr IVPB Q48H [facility] PRN Reason: Protocol Last Admin: 04/05/18 07:43 Dose: 133.333 mls/hr Dextrose (Dextrose 5% In Water 1000 Ml) 1,000 mls @ 0 mls/hr IV .Q0M PRN; Protocol; Per Protocol PRN Reason: Hypoglycemia Protocol Heparin Sodium/Sodium Chloride (Heparin 13913 Units/250ml 1/2 Normal Saline) 25 ,000 units in 250 mls @ 15.177 mls/hr IV .[id number] PRN; Protocol; 14 UNITS/KG/HR PRN Reason: PROTOCOL Last Admin: 04/05/18 22:31 Dose: 14 units/kg/hr, 15.177 mls/hr Vasopressin 40 units/ Dextrose 40 mls @ 2.4 mls/hr IV .[id number] PRN; Protocol; 0.04 UNITS/MIN PRN Reason: PER TITRATION PROTOCOL Last Titration: 04/06/18 06:02 Dose: 0.04 units/min, 2.4 mls/hr Potassium Chloride (Potassium Chloride 20 Meq/100 Ml) 20 meq in 100 mls @ 50 mls/hr IVPB ONCE ONE Stop: 04/06/18 09:34 Insulin Human Regular (Novolin R) 0 unit SC ACHS [facility] PRN Reason: Protocol Last Admin: 04/06/18 08:30 Dose: 1 units Pantoprazole Sodium (Protonix Ec Tab) 40 mg PO DAILY [facility] Potassium Chloride (K-Dur 20 Meq Er Tab) 40 meq PO ONCE ONE Stop: 04/06/18 10:01 Saccharomyces Boulardii (Florastor) 250 mg PO Q12 [facility] Last Admin: 04/05/18 22:28 Dose: 250 mg - Labs Labs: 04/06/18 06:18 04/06/18 06:19 PT 13.3 SECONDS (9.7-12.2) H 04/02/18 15:25 INR 1.2 04/02/18 15:25 APTT 75 SECONDS (21-34) H D 04/06/18 06:19 - Constitutional Appears: No Acute Distress, Chronically Ill - Head Exam Head Exam: ATRAUMATIC, NORMAL INSPECTION - Eye Exam Eye Exam: EOMI, Normal appearance - Neck Exam Neck Exam: Normal Inspection. absent: Tenderness - Respiratory Exam Respiratory Exam: Clear to Ausculation Bilateral, NORMAL BREATHING PATTERN - Cardiovascular Exam Cardiovascular Exam: Tachycardia, +S1 - GI/Abdominal Exam GI & Abdominal Exam: Soft. absent: Tenderness - Extremities Exam Extremities Exam: Pedal Edema, Tenderness - Neurological Exam Neurological Exam: Awake, CN II-XII Intact - Skin Skin Exam: Dry, Rash, Warm Assessment and Plan (1) TERRENCE (acute kidney injury) Status: Acute (2) Sepsis associated hypotension Status: Acute (3) Cellulitis of right leg Status: Acute (4) Chronic kidney disease, stage III (moderate) Status: Acute (5) Metabolic acidemia Status: Acute - Assessment and Plan (Free Text) Plan: Hold dialysis Replete K. mag Monitor lytes, renal function pressors as needed IV ABs AMANDA to be considered
[2018-04-06] MEDS ORDERED: Pantoprazole 40 mg EC Tab PO SCH (10:00)
[2018-04-06] MEDS ORDERED: Potassium Chloride 20 mEq ER Tab PO ONE (10:00)
[2018-04-06] MEDS ORDERED: Albumin Human 25% (12.5 gm/50 ml) IV ONE (10:17)
[2018-04-06] MEDS: Saccharomyces Boulardi 250 mg Cap PO SCH ×2 (10:37→22:21)
[2018-04-06 12:41] LABS: MEAN CELL VOLUME 94.5 fL (80.0-94.0); MEAN CORPUSCULAR HEMOGLOBIN 31.1 pg (27.0-31.0); MEAN CORPUSCULAR HGB CONC 32.9 g/dL (33.0-37.0); MEAN PLATELET VOLUME 8.6 fL (7.2-11.7); RBC 2.58 Mil/uL (4.40-5.90); RED CELL DISTRIBUTION WIDTH 14.9 % (11.5-14.5); WHITE BLOOD COUNT 15.5 K/uL (4.8-10.8)
--- NOTE | 2018-04-06 12:41 | CP.PCM.CON ---
History of Present Illness - History of Present Illness History of Present Illness: Podiatry consult note for Dr. Aldridge, 72 yo male with PMHx of arthritis, history of colon polyps, kidney stones, renal insufficiency, glaucoma s/p partial colectomy was seen at bedside after podiatry consult was placed. Patient complains of painful b/l leg wounds. Patient denies seeing a traveling inventory associate regularly. Patient does not recall how long he has had the leg wounds. Patient states his son helps him change the dressing , not daily however. Patient admits to moderate pain in the legs, and states "they are always painful" Patient denies any other pedal complains at this time. Patient denies f/n/v/sob. Past Patient History - Infectious Disease Hx of Infectious Diseases: None - Past Medical History & Family History Past Medical History?: Yes - Past Social History Smoking Status: Former Smoker - CARDIAC Hx Peripheral Edema: Yes - PULMONARY Hx Respiratory Disorders: No - NEUROLOGICAL Hx Neurological Disorder: No - HEENT Hx HEENT Problems: Yes Hx Glaucoma: Yes - RENAL Hx Chronic Kidney Disease: Yes Hx Kidney Stones: Yes - ENDOCRINE/METABOLIC Hx Endocrine Disorders: No - HEMATOLOGICAL/ONCOLOGICAL Hx Blood Disorders: Yes Hx Cancer: Yes (Colon) - INTEGUMENTARY Hx Dermatological Problems: No - MUSCULOSKELETAL/RHEUMATOLOGICAL Hx Arthritis: Yes - GASTROINTESTINAL Hx Gastrointestinal Disorders: Yes Other/Comment: Colon Ca - GENITOURINARY/GYNECOLOGICAL Hx Genitourinary Disorders: Yes Hx Prostate Problems: Yes - PSYCHIATRIC Hx Substance Use: No - SURGICAL HISTORY Hx Surgeries: Yes Other/Comment: Cysto, stent insertion 09/29/15, Colon resction 2010. [facility]/LITHOTRIPSY - ANESTHESIA Hx Anesthesia: Yes Hx Anesthesia Reactions: No Hx Malignant Hyperthermia: No Meds Allergies/Adverse Reactions: Allergies Allergy/AdvReac Type Severity Reaction Status Date / Time cefdinir [From Omnicef] Allergy Verified 10/02/17 11:52 - Medications Medications: Current Medications Amiodarone HCl (Cordarone) 200 mg PO Q12 [facility] Last Admin: 04/06/18 10:37 Dose: 200 mg Aspirin (Aspirin Chewable) 81 mg PO DAILY [facility] Last Admin: 04/05/18 10:29 Dose: 81 mg Dextrose (Dextrose 50% Inj) 0 ml IV STAT PRN; Protocol PRN Reason: Hypoglycemia Protocol Dextrose (Glutose 15) 0 gm PO ONCE PRN; Protocol PRN Reason: Hypoglycemia Protocol Glucagon (Glucagen Diagnostic Kit) 0 mg IM STAT PRN; Protocol PRN Reason: Hypoglycemia Protocol Meropenem 500 mg/ Sodium (Chloride) 100 mls @ 100 mls/hr IVPB Q8 [facility] PRN Reason: Protocol Last Admin: 04/06/18 05:53 Dose: 100 mls/hr Vancomycin/Sodium Chloride (Vancomycin 1 Gm/Ns 200 Ml) 1 gm in 200 mls @ 133.333 mls/hr IVPB Q48H [facility] PRN Reason: Protocol Last Admin: 04/05/18 07:43 Dose: 133.333 mls/hr Dextrose (Dextrose 5% In Water 1000 Ml) 1,000 mls @ 0 mls/hr IV .Q0M PRN; Protocol; Per Protocol PRN Reason: Hypoglycemia Protocol Heparin Sodium/Sodium Chloride (Heparin 23329 Units/250ml 1/2 Normal Saline) 25 ,000 units in 250 mls @ 15.177 mls/hr IV .[id number] PRN; Protocol; 14 UNITS/KG/HR PRN Reason: PROTOCOL Last Titration: 04/06/18 09:40 Dose: 0 units/kg/hr, 0 mls/hr Insulin Human Regular (Novolin R) 0 unit SC ACHS [facility] PRN Reason: Protocol Last Admin: 04/06/18 12:20 Dose: 2 units Midodrine (Proamatine) 5 mg PO TID [facility] Last Admin: 04/06/18 10:37 Dose: 5 mg Pantoprazole Sodium (Protonix Ec Tab) 40 mg PO DAILY [facility] Last Admin: 04/06/18 10:37 Dose: 40 mg Saccharomyces Boulardii (Florastor) 250 mg PO Q12 [facility] Last Admin: 04/06/18 10:37 Dose: 250 mg Physical Exam - Constitutional Appears: Well, Non-toxic, No Acute Distress - Head Exam Head Exam: ATRAUMATIC, NORMOCEPHALIC - Extremities Exam Additional comments: B/L lower extremity exam: Derm: multiple ulcerations noted circumferentially around the leg b/l, erythema noted from the ankle joint to the tibial tuberosity b/l. Left: ulceration noted dorsal distal aspect of the leg, irregular border, measuring approximately 5 cm x4cm x.3 cm, no probe to bone, 100% granular base, no malodor, no purulence, active serosanguneous drainage noted, no tunneling or tracking noted, perwound erythema, no clinical signs of infection, Multiple small ulcerations on lateral aspect of the distal leg, and posterior aspect of distal leg, regular border, 100% fibrotic base, no probe to bone, serous drainage noted, no purulence, no tunneling or tracking noted, periwound erythema no clinical signs of infection. Right: Ulceration noted at the distal aspect of dorsal leg, irregular border measuring approximately 6 cm x 5 cm x .3, no probe to bone, fibrogranular base, no malodor noted, active sanguneous drainage noted, no tunneling or tracking noted, dion wound erythema, no clinical signs of infection noted. Vascular: Dp/PT non palpable pulses secondary to pitting edema, +3 pitting edema noted, CFT <3 secs x10, Tg warm to warm, no pedal hair noted Neuro: protective sensation grossly diminished - Neurological Exam Neurological exam: Alert, Oriented x3 - Psychiatric Exam Psychiatric exam: Normal Affect, Normal Mood - Skin Skin Exam: Normal Color Results - Vital Signs Recent Vital Signs: Last Vital Signs Temp 98.6 F 04/06/18 08:00 Pulse 105 H 04/06/18 11:25 Resp 15 04/06/18 11:25 BP 121/68 04/06/18 11:25 Pulse Ox 94 L 04/06/18 11:25 - Labs Result Diagrams: 04/06/18 12:32 04/06/18 06:19 Labs: Laboratory Results - last 24 hr 04/05/18 04/05/18 04/06/18 16:12 21:14 06: WBC 15.2 H RBC 2.88 L Hgb 8.6 L Hct 26.9 L MCV 93.2 MCH 30.0 MCHC 32.2 L RDW 14.7 H Plt Count 148 MPV 8.7 Neut % (Auto) 90.0 H Lymph % (Auto) 4.6 L [place] % (Auto) 4.7 Eos % (Auto) 0.6 Baso % (Auto) 0.1 Neut # (Auto) 13.7 H Lymph # (Auto) 0.7 L [place] # (Auto) 0.7 Eos # (Auto) 0.1 Baso # (Auto) 0.0 Neutrophils % (Manual) 79 H Band Neutrophils % 5 H Lymphocytes % (Manual) 7 L Monocytes % (Manual) 6 Eosinophils % (Manual) 1 Myelocytes % 2 H Platelet Estimate Normal Poikilocytosis (manual Slight Ovalocytes Slight APTT Sodium Potassium Chloride Carbon Dioxide Anion Gap BUN Creatinine Est GFR ( Amer) Est GFR (Non-Af Amer) POC Glucose (mg/dL) 226 H 150 H Random Glucose Calcium Phosphorus Magnesium Total Bilirubin AST ALT Alkaline Phosphatase Total Protein Albumin Globulin Albumin/Globulin Ratio 04/06/18 04/06/18 04/06/18 06:19 06:19 07:24 WBC RBC Hgb Hct MCV MCH MCHC RDW Plt Count MPV Neut % (Auto) Lymph % (Auto) [place] % (Auto) Eos % (Auto) Baso % (Auto) Neut # (Auto) Lymph # (Auto) [place] # (Auto) Eos # (Auto) Baso # (Auto) Neutrophils % (Manual) Band Neutrophils % Lymphocytes % (Manual) Monocytes % (Manual) Eosinophils % (Manual) Myelocytes % Platelet Estimate Poikilocytosis (manual Ovalocytes APTT 75 H D Sodium 137 Potassium 3.0 L Chloride 104 Carbon Dioxide 24 Anion Gap 12 BUN 65 H Creatinine 1.9 H Est GFR ( Amer) 42 Est GFR (Non-Af Amer) 35 POC Glucose (mg/dL) 174 H Random Glucose 148 H Calcium 7.2 L Phosphorus 2.9 Magnesium 1.8 Total Bilirubin 0.4 AST 18 ALT 32 Alkaline Phosphatase 70 Total Protein 4.4 L Albumin 2.1 L Globulin 2.3 Albumin/Globulin Ratio 0.9 L 04/06/18 12:06 WBC RBC Hgb Hct MCV MCH MCHC RDW Plt Count MPV Neut % (Auto) Lymph % (Auto) [place] % (Auto) Eos % (Auto) Baso % (Auto) Neut # (Auto) Lymph # (Auto) [place] # (Auto) Eos # (Auto) Baso # (Auto) Neutrophils % (Manual) Band Neutrophils % Lymphocytes % (Manual) Monocytes % (Manual) Eosinophils % (Manual) Myelocytes % Platelet Estimate Poikilocytosis (manual Ovalocytes APTT Sodium Potassium Chloride Carbon Dioxide Anion Gap BUN Creatinine Est GFR ( Amer) Est GFR (Non-Af Amer) POC Glucose (mg/dL) 224 H Random Glucose Calcium Phosphorus Magnesium Total Bilirubin AST ALT Alkaline Phosphatase Total Protein Albumin Globulin Albumin/Globulin Ratio Assessment & Plan - Assessment and Plan (Free Text) Assessment: 72 yo male seen by bedside for multiple, chronic ulcerations on the distal aspect of bilateral legs. Plan: Patient was seen and evaluated Patients history and plan discussed in detail with the attending, Dr. Aldridge Chart, labs, and vitals reviewed; afebrile, WBC: 15.2 Leg dressed with xeroform, gauze, ABD, and kerlix Continue local woundcare Keep prelvon boots b/l All of patients questions and concerns answered Podiatry will follow patient while in house
--- NOTE | 2018-04-06 13:29 | CP.CCUPN ---
<Terri Mc - Last Filed: 04/06/18 13:16> CCU Subjective - Physician Review Subjective (Free Text): Patient is seen and examined at bedside. Patient is back to baseline (mentation) , denied any chest pain, SOB, admitted to lower extremity pain. CCU Objective - Vital Signs / Intake & Output Vital Signs (Last 4 hours): Vital Signs Temp Pulse Resp BP Pulse Ox 04/06/18 12:55 92 H 15 92/52 L 96 04/06/18 12:01 101 H 19 97/43 L 97 04/06/18 12:00 98.4 F 97 H 19 97 04/06/18 11:25 105 H 15 121/68 94 L 04/06/18 11:18 91 H 20 103/51 L 98 04/06/18 11:00 91 H 19 96 04/06/18 10:55 96 H 17 97/38 L 98 04/06/18 10:00 86 15 98/35 L 94 L 04/06/18 09:55 92 H 15 98/35 L 95 Intake and Output (Last 8hrs): Intake & Output 04/05/18 04/06/18 04/06/18 22:59 06:59 14:59 Intake Total 2554.5 932.4 542.8 Output Total 310 460 210 Balance 2244.5 472.4 332.8 Weight 242 lb 15.19 oz Intake: IV 257.3 0 50 Intake, IV Amount 1787.2 832.4 52.8 RIGHT FEM. Y 15.6 10.8 7.2 Right PICC 1650 700 right picc 2nd port 121.6 121.6 45.6 Oral 510 100 440 Output: Urine 310 460 210 Urethral (Wall) 310 460 210 Other: # Bowel Movements 0 0 0 - Physical Exam Head: Positive for: Atraumatic, Normocephalic Pupils: Positive for: PERRL Extroacular Muscles: Positive for: EOMI Conjunctiva: Positive for: Normal Mouth: Positive for: Dry Neck: Positive for: Normal Range of Motion Respiratory/Chest: Positive for: Clear to Auscultation. Negative for: Decreased Breath Sounds Cardiovascular: Positive for: Tachycardic Abdomen: Positive for: Distention, Normal Bowel Sounds Upper Extremity: Positive for: Normal Inspection, NORMAL PULSES, Neurovascularly Intact Lower Extremity: Positive for: CALF TENDERNESS, Tenderness, Swelling, Erythema, Other (severe cellulitis noted bilateral lower extremities with eschar noted on heels, fungus. Open wounds on superior and lateral aspects of shins. Currently wrapped by wound care. ) Neurological: Positive for: GCS=15, CN II-XII Intact Skin: Positive for: Warm, Dry Psychiatric: Positive for: Alert - Medications Active Medications: Active Medications Generic Name Dose Route Start Last Admin Trade Name Freq PRN Reason Stop Dose Admin Amiodarone HCl 200 mg 04/04/18 11:00 04/06/18 10:37 Cordarone PO 200 mg Q12 KARAN Administration Aspirin 81 mg 04/05/18 10:15 04/05/18 10:29 Aspirin Chewable PO 81 mg DAILY KARAN Administration Dextrose 0 ml 04/03/18 12:00 Dextrose 50% Inj IV STAT PRN Hypoglycemia Protocol Protocol Dextrose 0 gm 04/03/18 12:00 Glutose 15 PO ONCE PRN Hypoglycemia Protocol Protocol Glucagon 0 mg 04/03/18 12:00 Glucagen Diagnostic Kit IM STAT PRN Hypoglycemia Protocol Protocol Meropenem 500 mg/ Sodium 100 mls @ 100 mls/hr 04/03/18 06:00 04/06/18 13:01 Chloride IVPB 100 mls/hr Q8 KARAN Administration Protocol Vancomycin/Sodium Chloride 1 gm in 200 mls @ 133.333 mls/hr 04/05/18 08:30 07:43 Vancomycin 1 Gm/Ns 200 Ml IVPB 133.333 mls/hr Q48H KARAN Administration Protocol Dextrose 1,000 mls @ 0 mls/hr 04/03/18 12:00 Dextrose 5% In Water 1000 Ml IV .Q0M PRN Hypoglycemia Protocol Protocol Per Protocol Heparin Sodium/Sodium Chloride 25,000 units in 250 mls @ 15.177 mls/hr 21:00 04/06/18 09:40 Heparin 15279 Units/250ml 1/2 Normal Saline IV 0 units/kg/hr .[id number] PRN 0 mls/hr PROTOCOL Titration Protocol 14 UNITS/KG/HR Insulin Human Regular 0 unit 04/03/18 14:15 04/06/18 12:20 Novolin R SC 2 units ACHS KARAN Administration Protocol Midodrine 5 mg 04/06/18 10:00 04/06/18 13:00 Proamatine PO 5 mg TID KARAN Administration Pantoprazole Sodium 40 mg 04/06/18 10:00 04/06/18 10:37 Protonix Ec Tab PO 40 mg DAILY KARAN Administration Saccharomyces Boulardii 250 mg 04/03/18 10:00 04/06/18 10:37 Florastor PO 250 mg Q12 KARAN Administration - Patient Studies Lab Studies: Microbiology Studies 04/02/18 15:50 Blood Culture - Final Blood Pasteurella Multocida Gram Stain - Final 04/02/18 15:00 Blood Culture - Final Blood Pasteurella Multocida Gram Stain - Final 04/03/18 14:00 Stool Culture - Final Stool NO SALMONELLA, SHIGELLA OR CAMPYLOBACTER ISOLATED. Ova and Parasite Concentrate Exam - Final 04/02/18 18:51 Gram Stain - Final Leg - Right Wound Culture - Final Serratia Marcescens Sphingomonas Paucimobilis Lab Studies 04/06/18 04/06/18 04/06/18 Range/Units 12:32 12:06 07:24 WBC 15.5 H (4.8-10.8) K/uL RBC 2.58 L (4.40-5.90) Mil/uL Hgb 8.0 L (12.0-18.0) g/dL Hct 24.4 L (35.0-51.0) % MCV 94.5 H (80.0-94.0) fL MCH 31.1 H (27.0-31.0) pg MCHC 32.9 L (33.0-37.0) g/dL RDW 14.9 H (11.5-14.5) % Plt Count 126 L D (130-400) K/uL MPV 8.6 (7.2-11.7) fL Neut % (Auto) (50.0-75.0) % Lymph % (Auto) (20.0-40.0) % [place] % (Auto) (0.0-10.0) % Eos % (Auto) (0.0-4.0) % Baso % (Auto) (0.0-2.0) % Neut # (Auto) (1.8-7.0) K/uL Lymph # (Auto) (1.0-4.3) K/uL [place] # (Auto) (0.0-0.8) K/uL Eos # (Auto) (0.0-0.7) K/uL Baso # (Auto) (0.0-0.2) K/uL Neutrophils % (Manual) (50-75) % Band Neutrophils % (0-2) % Lymphocytes % (Manual) (20-40) % Monocytes % (Manual) (0-10) % Eosinophils % (Manual) (0-4) % Myelocytes % (0-0) % Platelet Estimate (NORMAL) Poikilocytosis (manual Ovalocytes APTT (21-34) SECONDS Sodium (132-148) mmol/L Potassium (3.6-5.2) mmol/L Chloride (98-107) mmol/L Carbon Dioxide (22-30) mmol/L Anion Gap (10-20) BUN (9-20) mg/dL Creatinine (0.8-1.5) mg/dL Est GFR ( Amer) Est GFR (Non-Af Amer) POC Glucose (mg/dL) 224 H 174 H (65-110) mg/dL Random Glucose (75-110) mg/dL Calcium (8.6-10.4) mg/dl Phosphorus (2.5-4.5) mg/dL Magnesium (1.6-2.3) mg/dL Total Bilirubin (0.2-1.3) mg/dL AST (17-59) U/L ALT (21-72) U/L Alkaline Phosphatase (38-126) U/L Total Protein (6.3-8.3) g/dL Albumin (3.5-5.0) g/dL Globulin (2.2-3.9) gm/dL Albumin/Globulin Ratio (1.0-2.1) 04/06/18 04/06/18 04/06/18 Range/Units 06:19 06:19 06:18 WBC 15.2 H (4.8-10.8) K/uL RBC 2.88 L (4.40-5.90) Mil/uL Hgb 8.6 L (12.0-18.0) g/dL Hct 26.9 L (35.0-51.0) % MCV 93.2 (80.0-94.0) fL MCH 30.0 (27.0-31.0) pg MCHC 32.2 L (33.0-37.0) g/dL RDW 14.7 H (11.5-14.5) % Plt Count 148 (130-400) K/uL MPV 8.7 (7.2-11.7) fL Neut % (Auto) 90.0 H (50.0-75.0) % Lymph % (Auto) 4.6 L (20.0-40.0) % [place] % (Auto) 4.7 (0.0-10.0) % Eos % (Auto) 0.6 (0.0-4.0) % Baso % (Auto) 0.1 (0.0-2.0) % Neut # (Auto) 13.7 H (1.8-7.0) K/uL Lymph # (Auto) 0.7 L (1.0-4.3) K/uL [place] # (Auto) 0.7 (0.0-0.8) K/uL Eos # (Auto) 0.1 (0.0-0.7) K/uL Baso # (Auto) 0.0 (0.0-0.2) K/uL Neutrophils % (Manual) 79 H (50-75) % Band Neutrophils % 5 H (0-2) % Lymphocytes % (Manual) 7 L (20-40) % Monocytes % (Manual) 6 (0-10) % Eosinophils % (Manual) 1 (0-4) % Myelocytes % 2 H (0-0) % Platelet Estimate Normal (NORMAL) Poikilocytosis (manual Slight Ovalocytes Slight APTT 75 H D (21-34) SECONDS Sodium 137 (132-148) mmol/L Potassium 3.0 L (3.6-5.2) mmol/L Chloride 104 (98-107) mmol/L Carbon Dioxide 24 (22-30) mmol/L Anion Gap 12 (10-20) BUN 65 H (9-20) mg/dL Creatinine 1.9 H (0.8-1.5) mg/dL Est GFR ( Amer) 42 Est GFR (Non-Af Amer) 35 POC Glucose (mg/dL) (65-110) mg/dL Random Glucose 148 H (75-110) mg/dL Calcium 7.2 L (8.6-10.4) mg/dl Phosphorus 2.9 (2.5-4.5) mg/dL Magnesium 1.8 (1.6-2.3) mg/dL Total Bilirubin 0.4 (0.2-1.3) mg/dL AST 18 (17-59) U/L ALT 32 (21-72) U/L Alkaline Phosphatase 70 (38-126) U/L Total Protein 4.4 L (6.3-8.3) g/dL Albumin 2.1 L (3.5-5.0) g/dL Globulin 2.3 (2.2-3.9) gm/dL Albumin/Globulin Ratio 0.9 L (1.0-2.1) 04/05/18 04/05/18 Range/Units 21:14 16:12 WBC (4.8-10.8) K/uL RBC (4.40-5.90) Mil/uL Hgb (12.0-18.0) g/dL Hct (35.0-51.0) % MCV (80.0-94.0) fL MCH (27.0-31.0) pg MCHC (33.0-37.0) g/dL RDW (11.5-14.5) % Plt Count (130-400) K/uL MPV (7.2-11.7) fL Neut % (Auto) (50.0-75.0) % Lymph % (Auto) (20.0-40.0) % [place] % (Auto) (0.0-10.0) % Eos % (Auto) (0.0-4.0) % Baso % (Auto) (0.0-2.0) % Neut # (Auto) (1.8-7.0) K/uL Lymph # (Auto) (1.0-4.3) K/uL [place] # (Auto) (0.0-0.8) K/uL Eos # (Auto) (0.0-0.7) K/uL Baso # (Auto) (0.0-0.2) K/uL Neutrophils % (Manual) (50-75) % Band Neutrophils % (0-2) % Lymphocytes % (Manual) (20-40) % Monocytes % (Manual) (0-10) % Eosinophils % (Manual) (0-4) % Myelocytes % (0-0) % Platelet Estimate (NORMAL) Poikilocytosis (manual Ovalocytes APTT (21-34) SECONDS Sodium (132-148) mmol/L Potassium (3.6-5.2) mmol/L Chloride (98-107) mmol/L Carbon Dioxide (22-30) mmol/L Anion Gap (10-20) BUN (9-20) mg/dL Creatinine (0.8-1.5) mg/dL Est GFR ( Amer) Est GFR (Non-Af Amer) POC Glucose (mg/dL) 150 H 226 H (65-110) mg/dL Random Glucose (75-110) mg/dL Calcium (8.6-10.4) mg/dl Phosphorus (2.5-4.5) mg/dL Magnesium (1.6-2.3) mg/dL Total Bilirubin (0.2-1.3) mg/dL AST (17-59) U/L ALT (21-72) U/L Alkaline Phosphatase (38-126) U/L Total Protein (6.3-8.3) g/dL Albumin (3.5-5.0) g/dL Globulin (2.2-3.9) gm/dL Albumin/Globulin Ratio (1.0-2.1) Laboratory Results - last 24 hr 04/05/18 04/05/18 04/06/18 16:12 21:14 06:18 WBC 15.2 H RBC 2.88 L Hgb 8.6 L Hct 26.9 L MCV 93.2 MCH 30.0 MCHC 32.2 L RDW 14.7 H Plt Count 148 MPV 8.7 Neut % (Auto) 90.0 H Lymph % (Auto) 4.6 L [place] % (Auto) 4.7 Eos % (Auto) 0.6 Baso % (Auto) 0.1 Neut # (Auto) 13.7 H Lymph # (Auto) 0.7 L [place] # (Auto) 0.7 Eos # (Auto) 0.1 Baso # (Auto) 0.0 Neutrophils % (Manual) 79 H Band Neutrophils % 5 H Lymphocytes % (Manual) 7 L Monocytes % (Manual) 6 Eosinophils % (Manual) 1 Myelocytes % 2 H Platelet Estimate Normal Poikilocytosis (manual Slight Ovalocytes Slight APTT Sodium Potassium Chloride Carbon Dioxide Anion Gap BUN Creatinine Est GFR ( Amer) Est GFR (Non-Af Amer) POC Glucose (mg/dL) 226 H 150 H Random Glucose Calcium Phosphorus Magnesium Total Bilirubin AST ALT Alkaline Phosphatase Total Protein Albumin Globulin Albumin/Globulin Ratio 04/06/18 04/06/18 04/06/18 06:19 06:19 07:24 WBC RBC Hgb Hct MCV MCH MCHC RDW Plt Count MPV Neut % (Auto) Lymph % (Auto) [place] % (Auto) Eos % (Auto) Baso % (Auto) Neut # (Auto) Lymph # (Auto) [place] # (Auto) Eos # (Auto) Baso # (Auto) Neutrophils % (Manual) Band Neutrophils % Lymphocytes % (Manual) Monocytes % (Manual) Eosinophils % (Manual) Myelocytes % Platelet Estimate Poikilocytosis (manual Ovalocytes APTT 75 H D Sodium 137 Potassium 3.0 L Chloride 104 Carbon Dioxide 24 Anion Gap 12 BUN 65 H Creatinine 1.9 H Est GFR ( Amer) 42 Est GFR (Non-Af Amer) 35 POC Glucose (mg/dL) 174 H Random Glucose 148 H Calcium 7.2 L Phosphorus 2.9 Magnesium 1.8 Total Bilirubin 0.4 AST 18 ALT 32 Alkaline Phosphatase 70 Total Protein 4.4 L Albumin 2.1 L Globulin 2.3 Albumin/Globulin Ratio 0.9 L 04/06/18 04/06/18 12:06 12:32 WBC 15.5 H RBC 2.58 L Hgb 8.0 L Hct 24.4 L MCV 94.5 H MCH 31.1 H MCHC 32.9 L RDW 14.9 H Plt Count 126 L D MPV 8.6 Neut % (Auto) Lymph % (Auto) [place] % (Auto) Eos % (Auto) Baso % (Auto) Neut # (Auto) Lymph # (Auto) [place] # (Auto) Eos # (Auto) Baso # (Auto) Neutrophils % (Manual) Band Neutrophils % Lymphocytes % (Manual) Monocytes % (Manual) Eosinophils % (Manual) Myelocytes % Platelet Estimate Poikilocytosis (manual Ovalocytes APTT Sodium Potassium Chloride Carbon Dioxide Anion Gap BUN Creatinine Est GFR ( Amer) Est GFR (Non-Af Amer) POC Glucose (mg/dL) 224 H Random Glucose Calcium Phosphorus Magnesium Total Bilirubin AST ALT Alkaline Phosphatase Total Protein Albumin Globulin Albumin/Globulin Ratio Fingerstick Blood Sugar Results: 224 Critical Care Progress Note - Nutrition Nutrition: Nutrition Category Date Time Status Soft [Dysphagia/Modified Consistency Diet] [DIET] Diets 04/05/18 Dinner Active Assessment/Plan - Assessment and Plan (Free Text) Assessment: This is a 72 year old male with PMHx of arthritis, history of colon polyps, kidney stones, renal insufficiency, glaucoma s/p partial colectomy brought by EMS as aptient fell out of his chair. Admitted for severe sepsis, septic shock 2 /2 bilateral lower extremity cellulitis, metabolic encephalopathy 2/2 ARF ( severe metabolic acidosis and uremia), and atrial fibrillation with RVR. Right PICC line placed Plan: Neuro: GCS: 12 (E3, V4, M5) A: AMS - Head CT - negative A: Metabolic Encephalopathy - Likely 2/2 uremia and severe metabolic acidosis from ARF Cardio: A: New Onset Atrial Fibrillation with RVR - ECHO: LVEF 60-65%, LVH, sclerotic trileaflet aortic valve - TSH, Free T4 - WNL - Was given digoxin, verapamil - Currently on off amio and verapamil drip - now Amio 200mg PO Q12 - Heparin drip started - held 2/2 anemia A: Hypotension - Stopped vaso - Currently on Midodrine GI: A: Diarrhea - RESOLVED - Started on vanco, flagyl - Cdiff negative, stool studies negative A: Cholelithiasis - CT chest/ab/pel: No evidence of pneumonia or empyema. Possible cholelithiasis. Correlate with ultrasound examination. Status post subtotal colectomy. Mural thickening of small bowel loops in the right lower quadrant. Nonspecific finding. Small hiatal hernia. Bilateral gynecomastia. Stable left adrenal adenoma. Small left renal cortical cyst. - Abdominal US: Cholelithiasis with prominent gallbladder calculus up to 2.3 cm at the neck of the gallbladde, additional calculus at the neck of the gallbladder measuring 1.3 cm. CBD 4.8mm. - T. bili now 0.8 A: Hx of Colon CA s/p subtotal colectomy? Endo: A: T2DM - Accuchecks, ISS - A1C 7.2 Renal: A: Acute Renal Failure with severe metabolic acidosis, hyperkalemia -- Dr. Luna consulted - Right Shiley placed 04/02 - Received dialysis 04/02 - Started on Bicarb drip @ 75cc/hr - Now HD TTS ID: A: Septic Shock -- ID consulted, Dr. Valdez -- Wound Care - 11/11 bilateral lower extremity cellulitis - BC grew Pasteurella, f/u repeat BC 04/07 - Wound Culture: Serratia Marcescens - Started on Meropenem Vanco Q48H 04/02/18, vanco trough 14 A: Bilateral Lower Extremity Cellulitis -- Podiatry was consulted -- Wound care on board - Venous dopplers ordered - NEGATIVE FOR DVT - Xray - negative for osteo Heme/Onc: A: Anemia, thrombocytopenia - Baseline 11, now 8.0 - DDAVP given, albumin 25grms given, ASA, heparin held - Stool occult ordered Prophylaxis: - Pepcid - SCDs c/i, Heparin Q8H - Florastor started - PT/ OT - POLST form filled out: Patient is DNR/DNI - Consent: Son Troy Bowden, , [place] [phone] - Case management for residential placement - Right PICC Line - 04/[address] Edwin Pollack, Terri Mc DO, PGY-1 <Edwin Pollack M - Last Filed: 04/06/18 17:02> CCU Objective - Vital Signs / Intake & Output Vital Signs (Last 4 hours): Vital Signs Temp Pulse Resp BP Pulse Ox 04/06/18 16:02 94 H 20 96/53 L 04/06/18 16:00 98.1 F 87 19 96 04/06/18 15:02 84 20 90/46 L 04/06/18 15:00 89 21 04/06/18 14:57 88 22 04/06/18 14:00 96 H 19 04/06/18 13:56 98 H 23 123/59 L Intake and Output (Last 8hrs): Intake & Output 04/06/18 04/06/18 04/06/18 06:59 14:59 22:59 Intake Total 932.4 542.8 Output Total 460 290 80 Balance 472.4 252.8 -80 Weight 242 lb 15.19 oz Intake: IV 0 50 Intake, IV Amount 832.4 52.8 RIGHT FEM. Y 10.8 7.2 Right PICC 700 right picc 2nd port 121.6 45.6 Oral 100 440 Output: Urine 460 290 80 Urethral (Wall) 460 290 80 Other: # Bowel Movements 0 0 - Medications Active Medications: Active Medications Generic Name Dose Route Start Last Admin Trade Name Freq PRN Reason Stop Dose Admin Al Hydrox/Mg Hydrox/Simethicone 30 ml 04/06/18 14:07 04/06/18 14:50 Maalox Plus 30 Ml PO 30 ml Q4H PRN Administration Indigestion / Heartburn Amiodarone HCl 200 mg 04/04/18 11:00 04/06/18 10:37 Cordarone PO 200 mg Q12 KARAN Administration Aspirin 81 mg 04/05/18 10:15 04/05/18 10:29 Aspirin Chewable PO 81 mg DAILY KARAN Administration Dextrose 0 ml 04/03/18 12:00 Dextrose 50% Inj IV STAT PRN Hypoglycemia Protocol Protocol Dextrose 0 gm 04/03/18 12:00 Glutose 15 PO ONCE PRN Hypoglycemia Protocol Protocol Glucagon 0 mg 04/03/18 12:00 Glucagen Diagnostic Kit IM STAT PRN Hypoglycemia Protocol Protocol Meropenem 500 mg/ Sodium 100 mls @ 100 mls/hr 04/03/18 06:00 04/06/18 13:01 Chloride IVPB 100 mls/hr Q8 KARAN Administration Protocol Vancomycin/Sodium Chloride 1 gm in 200 mls @ 133.333 mls/hr 04/05/18 08:30 07:43 Vancomycin 1 Gm/Ns 200 Ml IVPB 133.333 mls/hr Q48H KARAN Administration Protocol Dextrose 1,000 mls @ 0 mls/hr 04/03/18 12:00 Dextrose 5% In Water 1000 Ml IV .Q0M PRN Hypoglycemia Protocol Protocol Per Protocol Heparin Sodium/Sodium Chloride 25,000 units in 250 mls @ 15.177 mls/hr 21:00 04/06/18 09:40 Heparin 39600 Units/250ml 1/2 Normal Saline IV 0 units/kg/hr .[id number] PRN 0 mls/hr PROTOCOL Titration Protocol 14 UNITS/KG/HR Insulin Human Regular 0 unit 04/03/18 14:15 04/06/18 16:54 Novolin R SC 1 units ACHS KARAN Administration Protocol Midodrine 5 mg 04/06/18 10:00 04/06/18 13:00 Proamatine PO 5 mg TID KARAN Administration Pantoprazole Sodium 40 mg 04/06/18 18:00 Protonix Inj IVP Q12H KARAN Saccharomyces Boulardii 250 mg 04/03/18 10:00 04/06/18 10:37 Florastor PO 250 mg Q12 KARAN Administration - Patient Studies Lab Studies: Microbiology Studies 04/02/18 15:50 Blood Culture - Final Blood Pasteurella Multocida Gram Stain - Final 04/02/18 15:00 Blood Culture - Final Blood Pasteurella Multocida Gram Stain - Final 04/03/18 14:00 Stool Culture - Final Stool NO SALMONELLA, SHIGELLA OR CAMPYLOBACTER ISOLATED. Ova and Parasite Concentrate Exam - Final Lab Studies 04/06/18 04/06/18 04/06/18 Range/Units 16:22 15:57 15:40 WBC (4.8-10.8) K/uL RBC (4.40-5.90) Mil/uL Hgb (12.0-18.0) g/dL Hct (35.0-51.0) % MCV (80.0-94.0) fL MCH (27.0-31.0) pg MCHC (33.0-37.0) g/dL RDW (11.5-14.5) % Plt Count (130-400) K/uL MPV (7.2-11.7) fL Neut % (Auto) (50.0-75.0) % Lymph % (Auto) (20.0-40.0) % [place] % (Auto) (0.0-10.0) % Eos % (Auto) (0.0-4.0) % Baso % (Auto) (0.0-2.0) % Neut # (Auto) (1.8-7.0) K/uL Lymph # (Auto) (1.0-4.3) K/uL [place] # (Auto) (0.0-0.8) K/uL Eos # (Auto) (0.0-0.7) K/uL Baso # (Auto) (0.0-0.2) K/uL Neutrophils % (Manual) (50-75) % Band Neutrophils % (0-2) % Lymphocytes % (Manual) (20-40) % Monocytes % (Manual) (0-10) % Eosinophils % (Manual) (0-4) % Myelocytes % (0-0) % Differential Comment Platelet Estimate (NORMAL) Poikilocytosis (manual Ovalocytes APTT 32 D (21-34) SECONDS Sodium (132-148) mmol/L Potassium (3.6-5.2) mmol/L Chloride (98-107) mmol/L Carbon Dioxide (22-30) mmol/L Anion Gap (10-20) BUN (9-20) mg/dL Creatinine (0.8-1.5) mg/dL Est GFR ( Amer) Est GFR (Non-Af Amer) POC Glucose (mg/dL) 192 H (65-110) mg/dL Random Glucose (75-110) mg/dL Calcium (8.6-10.4) mg/dl Phosphorus (2.5-4.5) mg/dL Magnesium (1.6-2.3) mg/dL Total Bilirubin (0.2-1.3) mg/dL AST (17-59) U/L ALT (21-72) U/L Alkaline Phosphatase (38-126) U/L Total Protein (6.3-8.3) g/dL Albumin (3.5-5.0) g/dL Globulin (2.2-3.9) gm/dL Albumin/Globulin Ratio (1.0-2.1) Stool Occult Blood Positive H (NEGATIVE) 04/06/18 04/06/18 04/06/18 Range/Units 12:32 12:06 07:24 WBC 15.5 H (4.8-10.8) K/uL RBC 2.58 L (4.40-5.90) Mil/uL Hgb 8.0 L (12.0-18.0) g/dL Hct 24.4 L (35.0-51.0) % MCV 94.5 H (80.0-94.0) fL MCH 31.1 H (27.0-31.0) pg MCHC 32.9 L (33.0-37.0) g/dL RDW 14.9 H (11.5-14.5) % Plt Count 126 L D (130-400) K/uL MPV 8.6 (7.2-11.7) fL Neut % (Auto) (50.0-75.0) % Lymph % (Auto) (20.0-40.0) % [place] % (Auto) (0.0-10.0) % Eos % (Auto) (0.0-4.0) % Baso % (Auto) (0.0-2.0) % Neut # (Auto) (1.8-7.0) K/uL Lymph # (Auto) (1.0-4.3) K/uL [place] # (Auto) (0.0-0.8) K/uL Eos # (Auto) (0.0-0.7) K/uL Baso # (Auto) (0.0-0.2) K/uL Neutrophils % (Manual) (50-75) % Band Neutrophils % (0-2) % Lymphocytes % (Manual) (20-40) % Monocytes % (Manual) (0-10) % Eosinophils % (Manual) (0-4) % Myelocytes % (0-0) % Differential Comment Platelet Estimate (NORMAL) Poikilocytosis (manual Ovalocytes APTT (21-34) SECONDS Sodium (132-148) mmol/L Potassium (3.6-5.2) mmol/L Chloride (98-107) mmol/L Carbon Dioxide (22-30) mmol/L Anion Gap (10-20) BUN (9-20) mg/dL Creatinine (0.8-1.5) mg/dL Est GFR ( Amer) Est GFR (Non-Af Amer) POC Glucose (mg/dL) 224 H 174 H (65-110) mg/dL Random Glucose (75-110) mg/dL Calcium (8.6-10.4) mg/dl Phosphorus (2.5-4.5) mg/dL Magnesium (1.6-2.3) mg/dL Total Bilirubin (0.2-1.3) mg/dL AST (17-59) U/L ALT (21-72) U/L Alkaline Phosphatase (38-126) U/L Total Protein (6.3-8.3) g/dL Albumin (3.5-5.0) g/dL Globulin (2.2-3.9) gm/dL Albumin/Globulin Ratio (1.0-2.1) Stool Occult Blood (NEGATIVE) 04/06/18 04/06/18 04/06/18 Range/Units 06:19 06:19 06:18 WBC 15.2 H (4.8-10.8) K/uL RBC 2.88 L (4.40-5.90) Mil/uL Hgb 8.6 L (12.0-18.0) g/dL Hct 26.9 L (35.0-51.0) % MCV 93.2 (80.0-94.0) fL MCH 30.0 (27.0-31.0) pg MCHC 32.2 L (33.0-37.0) g/dL RDW 14.7 H (11.5-14.5) % Plt Count 148 (130-400) K/uL MPV 8.7 (7.2-11.7) fL Neut % (Auto) 90.0 H (50.0-75.0) % Lymph % (Auto) 4.6 L (20.0-40.0) % [place] % (Auto) 4.7 (0.0-10.0) % Eos % (Auto) 0.6 (0.0-4.0) % Baso % (Auto) 0.1 (0.0-2.0) % Neut # (Auto) 13.7 H (1.8-7.0) K/uL Lymph # (Auto) 0.7 L (1.0-4.3) K/uL [place] # (Auto) 0.7 (0.0-0.8) K/uL Eos # (Auto) 0.1 (0.0-0.7) K/uL Baso # (Auto) 0.0 (0.0-0.2) K/uL Neutrophils % (Manual) 79 H (50-75) % Band Neutrophils % 5 H (0-2) % Lymphocytes % (Manual) 7 L (20-40) % Monocytes % (Manual) 6 (0-10) % Eosinophils % (Manual) 1 (0-4) % Myelocytes % 2 H (0-0) % Differential Comment Platelet Estimate Normal (NORMAL) Poikilocytosis (manual Slight Ovalocytes Slight APTT 75 H D (21-34) SECONDS Sodium 137 (132-148) mmol/L Potassium 3.0 L (3.6-5.2) mmol/L Chloride 104 (98-107) mmol/L Carbon Dioxide 24 (22-30) mmol/L Anion Gap 12 (10-20) BUN 65 H (9-20) mg/dL Creatinine 1.9 H (0.8-1.5) mg/dL Est GFR ( Amer) 42 Est GFR (Non-Af Amer) 35 POC Glucose (mg/dL) (65-110) mg/dL Random Glucose 148 H (75-110) mg/dL Calcium 7.2 L (8.6-10.4) mg/dl Phosphorus 2.9 (2.5-4.5) mg/dL Magnesium 1.8 (1.6-2.3) mg/dL Total Bilirubin 0.4 (0.2-1.3) mg/dL AST 18 (17-59) U/L ALT 32 (21-72) U/L Alkaline Phosphatase 70 (38-126) U/L Total Protein 4.4 L (6.3-8.3) g/dL Albumin 2.1 L (3.5-5.0) g/dL Globulin 2.3 (2.2-3.9) gm/dL Albumin/Globulin Ratio 0.9 L (1.0-2.1) Stool Occult Blood (NEGATIVE) 04/05/18 04/05/18 Range/Units 21:14 16:12 WBC (4.8-10.8) K/uL RBC (4.40-5.90) Mil/uL Hgb (12.0-18.0) g/dL Hct (35.0-51.0) % MCV (80.0-94.0) fL MCH (27.0-31.0) pg MCHC (33.0-37.0) g/dL RDW (11.5-14.5) % Plt Count (130-400) K/uL MPV (7.2-11.7) fL Neut % (Auto) (50.0-75.0) % Lymph % (Auto) (20.0-40.0) % [place] % (Auto) (0.0-10.0) % Eos % (Auto) (0.0-4.0) % Baso % (Auto) (0.0-2.0) % Neut # (Auto) (1.8-7.0) K/uL Lymph # (Auto) (1.0-4.3) K/uL [place] # (Auto) (0.0-0.8) K/uL Eos # (Auto) (0.0-0.7) K/uL Baso # (Auto) (0.0-0.2) K/uL Neutrophils % (Manual) (50-75) % Band Neutrophils % (0-2) % Lymphocytes % (Manual) (20-40) % Monocytes % (Manual) (0-10) % Eosinophils % (Manual) (0-4) % Myelocytes % (0-0) % Differential Comment Platelet Estimate (NORMAL) Poikilocytosis (manual Ovalocytes APTT (21-34) SECONDS Sodium (132-148) mmol/L Potassium (3.6-5.2) mmol/L Chloride (98-107) mmol/L Carbon Dioxide (22-30) mmol/L Anion Gap (10-20) BUN (9-20) mg/dL Creatinine (0.8-1.5) mg/dL Est GFR ( Amer) Est GFR (Non-Af Amer) POC Glucose (mg/dL) 150 H 226 H (65-110) mg/dL Random Glucose (75-110) mg/dL Calcium (8.6-10.4) mg/dl Phosphorus (2.5-4.5) mg/dL Magnesium (1.6-2.3) mg/dL Total Bilirubin (0.2-1.3) mg/dL AST (17-59) U/L ALT (21-72) U/L Alkaline Phosphatase (38-126) U/L Total Protein (6.3-8.3) g/dL Albumin (3.5-5.0) g/dL Globulin (2.2-3.9) gm/dL Albumin/Globulin Ratio (1.0-2.1) Stool Occult Blood (NEGATIVE) Laboratory Results - last 24 hr 04/05/18 04/05/18 04/06/18 16:12 21:14 06:18 WBC 15.2 H RBC 2.88 L Hgb 8.6 L Hct 26.9 L MCV 93.2 MCH 30.0 MCHC 32.2 L RDW 14.7 H Plt Count 148 MPV 8.7 Neut % (Auto) 90.0 H Lymph % (Auto) 4.6 L [place] % (Auto) 4.7 Eos % (Auto) 0.6 Baso % (Auto) 0.1 Neut # (Auto) 13.7 H Lymph # (Auto) 0.7 L [place] # (Auto) 0.7 Eos # (Auto) 0.1 Baso # (Auto) 0.0 Neutrophils % (Manual) 79 H Band Neutrophils % 5 H Lymphocytes % (Manual) 7 L Monocytes % (Manual) 6 Eosinophils % (Manual) 1 Myelocytes % 2 H Differential Comment Platelet Estimate Normal Poikilocytosis (manual Slight Ovalocytes Slight APTT Sodium Potassium Chloride Carbon Dioxide Anion Gap BUN Creatinine Est GFR ( Amer) Est GFR (Non-Af Amer) POC Glucose (mg/dL) 226 H 150 H Random Glucose Calcium Phosphorus Magnesium Total Bilirubin AST ALT Alkaline Phosphatase Total Protein Albumin Globulin Albumin/Globulin Ratio Stool Occult Blood 04/06/18 04/06/18 04/06/18 06:19 06:19 07:24 WBC RBC Hgb Hct MCV MCH MCHC RDW Plt Count MPV Neut % (Auto) Lymph % (Auto) [place] % (Auto) Eos % (Auto) Baso % (Auto) Neut # (Auto) Lymph # (Auto) [place] # (Auto) Eos # (Auto) Baso # (Auto) Neutrophils % (Manual) Band Neutrophils % Lymphocytes % (Manual) Monocytes % (Manual) Eosinophils % (Manual) Myelocytes % Differential Comment Platelet Estimate Poikilocytosis (manual Ovalocytes APTT 75 H D Sodium 137 Potassium 3.0 L Chloride 104 Carbon Dioxide 24 Anion Gap 12 BUN 65 H Creatinine 1.9 H Est GFR ( Amer) 42 Est GFR (Non-Af Amer) 35 POC Glucose (mg/dL) 174 H Random Glucose 148 H Calcium 7.2 L Phosphorus 2.9 Magnesium 1.8 Total Bilirubin 0.4 AST 18 ALT 32 Alkaline Phosphatase 70 Total Protein 4.4 L Albumin 2.1 L Globulin 2.3 Albumin/Globulin Ratio 0.9 L Stool Occult Blood 04/06/18 04/06/18 04/06/18 12:06 12:32 15:40 WBC 15.5 H RBC 2.58 L Hgb 8.0 L Hct 24.4 L MCV 94.5 H MCH 31.1 H MCHC 32.9 L RDW 14.9 H Plt Count 126 L D MPV 8.6 Neut % (Auto) Lymph % (Auto) [place] % (Auto) Eos % (Auto) Baso % (Auto) Neut # (Auto) Lymph # (Auto) [place] # (Auto) Eos # (Auto) Baso # (Auto) Neutrophils % (Manual) Band Neutrophils % Lymphocytes % (Manual) Monocytes % (Manual) Eosinophils % (Manual) Myelocytes % Differential Comment Platelet Estimate Poikilocytosis (manual Ovalocytes APTT Sodium Potassium Chloride Carbon Dioxide Anion Gap BUN Creatinine Est GFR ( Amer) Est GFR (Non-Af Amer) POC Glucose (mg/dL) 224 H Random Glucose Calcium Phosphorus Magnesium Total Bilirubin AST ALT Alkaline Phosphatase Total Protein Albumin Globulin Albumin/Globulin Ratio Stool Occult Blood Positive H 04/06/18 04/06/18 15:57 16:22 WBC RBC Hgb Hct MCV MCH MCHC RDW Plt Count MPV Neut % (Auto) Lymph % (Auto) [place] % (Auto) Eos % (Auto) Baso % (Auto) Neut # (Auto) Lymph # (Auto) [place] # (Auto) Eos # (Auto) Baso # (Auto) Neutrophils % (Manual) Band Neutrophils % Lymphocytes % (Manual) Monocytes % (Manual) Eosinophils % (Manual) Myelocytes % Differential Comment Platelet Estimate Poikilocytosis (manual Ovalocytes APTT 32 D Sodium Potassium Chloride Carbon Dioxide Anion Gap BUN Creatinine Est GFR ( Amer) Est GFR (Non-Af Amer) POC Glucose (mg/dL) 192 H Random Glucose Calcium Phosphorus Magnesium Total Bilirubin AST ALT Alkaline Phosphatase Total Protein Albumin Globulin Albumin/Globulin Ratio Stool Occult Blood Critical Care Progress Note - Nutrition Nutrition: Nutrition Category Date Time Status Soft [Dysphagia/Modified Consistency Diet] [DIET] Diets 04/05/18 Dinner Active Assessment/Plan - Assessment and Plan (Free Text) Plan: Acute Septic shock: resolving, off pressors, continue abx as per ID -A-fib:currently rate controlled on amiodarone continue IV heparin for AC -Severe Metabolic acidosis: resolving TERRENCE improving off HD (HD line REMOVED) -TERRENCE:improving -Chronic systolic and diastolic heart failure: monitor MAP keep > 65 -Hypoxic respiratoru failure: off bi-pap, on room air -Hyperpotassemia: resolving -WOund care -started on oral diet -DVT PX heparin -d/w patient's son (from [place]) - Date & Time Date: 04/06/18 Time: 17:02
[2018-04-06] MEDS ORDERED: Alum-Mag Hydrox-Simethicone Susp (30 mL) PO PRN (14:07)
[2018-04-06] MEDS: Heparin25000 units/250ml 1/2NS 25,000 UNITS/250 ML BAG IV PRN (17:30)
--- NOTE | 2018-04-06 18:05 | CP.PCM.PN ---
Subjective - Date & Time of Evaluation Date of Evaluation: 04/06/18 Time of Evaluation: 09:00 - Subjective Subjective: overall improved seen by podiatry rx in progress Objective - Vital Signs/Intake and Output Vital Signs (last 24 hours): Temp Pulse Resp BP Pulse Ox 98.1 F 94 H 20 96/53 L 96 04/06/18 16:00 04/06/18 16:02 04/06/18 16:02 04/06/18 16:02 04/06/18 16:00 Intake and Output: 04/06/18 04/06/18 06:59 18:59 Intake Total 1919.2 754.1 Output Total 660 370 Balance 1259.2 384.1 - Medications Medications: Current Medications Al Hydrox/Mg Hydrox/Simethicone (Maalox Plus 30 Ml) 30 ml PO Q4H PRN PRN Reason: Indigestion / Heartburn Last Admin: 04/06/18 14:50 Dose: 30 ml Amiodarone HCl (Cordarone) 200 mg PO Q12 [facility] Last Admin: 04/06/18 10:37 Dose: 200 mg Aspirin (Aspirin Chewable) 81 mg PO DAILY [facility] Last Admin: 04/05/18 10:29 Dose: 81 mg Dextrose (Dextrose 50% Inj) 0 ml IV STAT PRN; Protocol PRN Reason: Hypoglycemia Protocol Dextrose (Glutose 15) 0 gm PO ONCE PRN; Protocol PRN Reason: Hypoglycemia Protocol Glucagon (Glucagen Diagnostic Kit) 0 mg IM STAT PRN; Protocol PRN Reason: Hypoglycemia Protocol Meropenem 500 mg/ Sodium (Chloride) 100 mls @ 100 mls/hr IVPB Q8 KARAN PRN Reason: Protocol Last Admin: 04/06/18 13:01 Dose: 100 mls/hr Vancomycin/Sodium Chloride (Vancomycin 1 Gm/Ns 200 Ml) 1 gm in 200 mls @ 133.333 mls/hr IVPB Q48H KARAN PRN Reason: Protocol Last Admin: 04/05/18 07:43 Dose: 133.333 mls/hr Dextrose (Dextrose 5% In Water 1000 Ml) 1,000 mls @ 0 mls/hr IV .Q0M PRN; Protocol; Per Protocol PRN Reason: Hypoglycemia Protocol Heparin Sodium/Sodium Chloride (Heparin 56135 Units/250ml 1/2 Normal Saline) 25 ,000 units in 250 mls @ 15.177 mls/hr IV .[id number] PRN; Protocol; 14 UNITS/KG/HR PRN Reason: PROTOCOL Last Admin: 04/06/18 17:30 Dose: 14 units/kg/hr, 15.177 mls/hr Insulin Human Regular (Novolin R) 0 unit SC ACHS KARAN PRN Reason: Protocol Last Admin: 04/06/18 16:54 Dose: 1 units Midodrine (Proamatine) 5 mg PO TID [facility] Last Admin: 04/06/18 17:19 Dose: 5 mg Pantoprazole Sodium (Protonix Inj) 40 mg IVP Q12H [facility] Last Admin: 04/06/18 17:19 Dose: 40 mg Saccharomyces Boulardii (Florastor) 250 mg PO Q12 [facility] Last Admin: 04/06/18 10:37 Dose: 250 mg - Labs Labs: 04/06/18 12:32 04/06/18 06:19 PT 13.3 SECONDS (9.7-12.2) H 04/02/18 15:25 INR 1.2 04/02/18 15:25 APTT 32 SECONDS (21-34) D 04/06/18 16:22 - Constitutional Appears: Confused, Chronically Ill - Head Exam Head Exam: NORMOCEPHALIC - Eye Exam Eye Exam: PERRL - ENT Exam ENT Exam: Mucous Membranes Dry - Neck Exam Neck Exam: absent: Thyromegaly - Respiratory Exam Respiratory Exam: Decreased Breath Sounds - Cardiovascular Exam Cardiovascular Exam: REGULAR RHYTHM - GI/Abdominal Exam GI & Abdominal Exam: Distended - Rectal Exam Rectal Exam: Deferred - Exam Exam: NORMAL INSPECTION - Extremities Exam Extremities Exam: Pedal Edema Additional comments: Derm: multiple ulcerations noted circumferentially around the leg b/l, erythema noted from the ankle joint to the tibial tuberosity b/l. Left: ulceration noted dorsal distal aspect of the leg, irregular border, measuring approximately 5 cm x4cm x.3 cm, no probe to bone, 100% granular base, no malodor, no purulence, active serosanguneous drainage noted, no tunneling or tracking noted, perwound erythema, no clinical signs of infection, Multiple small ulcerations on lateral aspect of the distal leg, and posterior aspect of distal leg, regular border, 100% fibrotic base, no probe to bone, serous drainage noted, no purulence, no tunneling or tracking noted, periwound erythema no clinical signs of infection. Right: Ulceration noted at the distal aspect of dorsal leg, irregular border measuring approximately 6 cm x 5 cm x .3, no probe to bone, fibrogranular base, no malodor noted, active sanguneous drainage noted, no tunneling or tracking noted, dion wound erythema, no clinical signs of infection noted. 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
--- NOTE | 2018-04-06 19:33 | CP.PCM.PN ---
Subjective - Date & Time of Evaluation Date of Evaluation: 04/06/18 Time of Evaluation: 19:15 - Subjective Subjective: Patient was seen and examined at 7:25 PM 04/06/18 ICU Bed 9 72 year old male who was admitted to the ICU on 04/02/18 for treatment of Severe Sepsis. Please see assessment and plans below for further details. Patient is awake today, answering questions, and following commands. Upon ROS gives the following complaints: States that he tried to eat regular food today and afterwards was experiencing some nausea with pain along midline abdomen. He can't recall if he has had bowel movement today: Nurse Allen stated that he had two small ones NO other complaints upon FULL ROS Obstruction Series ordered to rule out obstruction considering the abdominal distention on exam as noted below Stool Occult is positive and HgB down to 8. F/U repeat HgB/Hct at 9 PM and if declining then Heparin Drip should be placed on hold Exam: General: Awake, Alert, and Oriented person, place but NOT to time (believes it is November and could not provide year) HEENT: NCA, EOMI, PERRLA, NO lymphadenopathy, NO thyromegaly, NO pharyngeal erythema/exudate, Nasal Turbinates are nonerythematous/nonedematous Cardio: NS1 and NS2, NO M/R/G Resp: CTA B/L, NO R/R/W with decreased breath sounds mid to lower lung rhodes GI: Tenderness to palpation along midline, Decreased bowel sounds and few high pitched, Abdomen appears more distended today Ext: Bilateral UE pulses are strong and equal, Bilateral LE pulses could not be palpated, 2+ pitting edema of bilateral LE with erythema/warmth involving the ankles to the mid tibia bilaterally, multiple eschars present bilateral LE, open wound Right Anterior lower leg, NO more Maggots Neuro: CN II through XII are grossly intact Assessment/Plan 1) Severe Sepsis Septic Shock Assessment/Plan * Etiologies: b/l cellulitis over the legs (noted since 2017 available in the EMR) * Admitted to the ICU; further management per ICU * Code sepsis: 04/02/18 in the ED * On admission: hypotensive, temp 94 deg, wbc 52, lactate 3.3 * Consult Infectious Disease, Dr Valdez on board * CT chest/abd/pelvis w/o contrast: dependent atelectasis, mild cariomegaly, small hiatal hernia, subtle hypodensities in gallbladder (mass vs stone), 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, 1.5 cm left renal cyst, postoperative changes from bowel surgery, moderate stool in rectosigmoid colon, few mildly dilated small bowel loops * Abdomen U/S: hepatic parenchymal disease, gallstones * CT head w/o contrast: chronic microvascular changes, no focal deficit * Chest X Ray 04/05/18 showed bilateral pleural effusion * C.Diff toxin negative * Urine Culture negative * Hepatitis Panel is negative * Wound Culture Right Leg shows Serratia marcescens and Sphingomonas paucimobilis * Blood Cx shows Pasteurella multocida * PICC Line Right placed 04/05/18 Medications: * Meropenem 500mg IVP Q8H: spoke with Microbiology and Meropenem ALONZO is great for Serratia, Sphingomonas, and Pasteurella therefore this is the only antibiotic he is currently on. * Awaiting to hear back from Cardiology about getting AMANDA (once patient is more stable) considering positive blood culture for Pasteurella * No longer on Vasopressin * Currently on Midodrine 5 mg PO TID 2) Bilateral Lower Cellulitis Assessment/Plan * patient's legs are edematous, erythematous, and weeping and with maggots upon presentation (Dakin's solution x 2 were given and the maggots are gone) * Wound Culture Right Leg shows Serratia marcescens and Sphingomonas paucimobilis: Meropenem 500 mg IV Q8H * Prior hx of cellulitis since 2017 noted in the EMR * Tib/Fib X Ray bilateral showed NO radiographic evidence of osteomyelitis * Infectious Disease Dr. Valdez * If podiatry consult warranted, please consult Dr. Johnnie Minor/Dr. To who has seen this patient in prior admission 3) Metabolic Encephalopathy Assessment/Plan * Etiology: sepsis, uremia, severe metabolic acidosis * emergent dialysis catheter placed by ICU on 04/02/18 * Nephrology (Dr. Luna) on board-->help appreciated * CT head w/o contrast: chronic microvascular changes, no focal deficit 4) Acute on Chronic Renal Insufficiency Severe Metabolic Acidosis Hyperkalemia Assessment/Plan * Nephrology (Dr. Luna) on board-->help appreciated * Note: history of nephrolithasis, prior hx of cystoscopy and stent insertion per EMR * Emergent HD through femoral catheter placed by ICU (right groin) on 04/02/18 * Bicarbonate drip: D5 W with 150 mEQ NaHCO3 at 75 ml/hr was discontinued on 5) Atrial Fibrillation w RVR Assessment/Plan * Cardiology (Dr. Henriquez) on board-->help appreciated * Patient was diagnosed with new onset atrial fibrillation last admission * Digoxin is < 0.4 04/03/18 * Echocardiogram 04/02/18: LA moderate dilation, mild concentric hypertrophy, EF 60-65%, normal diastolic filling * ASA 81 mg PO 1x/day * Amiodorone 200 mg PO Q12H * Heparin Drip for now for anticoagulation 6) History of colonic polyps History of partial colectecomy Assessment/Plan 7) Prior history of incarcerated hernia and small bowel obstruction Assessment/Plan * Noted in the EMR from patient's last hospitalization with Dr. Ceja who performed the surgery 8) Anemia Secondary to CKD Stage 4 * Monitor HgB/Hct 9) Prophylactic care * Contraindications to SCDS given cellulitis noted on bilateral legs * Heparin Drip * Wall * Swallow Evaluation: finely chopped thin liquids * Florastor 250 mg PO 2x/day Palliative Care Nurse Alba spoke with Son Troy (who was not present at time of my exam) 04/03/18: made DNR/DNI, POLST completed and in chart (FULL TREATMENT), would like patient to be placed in [facility] care and not return home (where is lives with other son). Employee Benefits Manager to arrange for stone cleaner care facility placement. Rocco Pollack D.O. Objective - Vital Signs/Intake and Output Vital Signs (last 24 hours): Temp Pulse Resp BP Pulse Ox 98.1 F 85 17 112/59 L 96 04/06/18 16:00 04/06/18 19:02 04/06/18 19:02 04/06/18 19:02 04/06/18 16:00 Intake and Output: 04/06/18 04/07/18 18:59 06:59 Intake Total 854.1 Output Total 370 Balance 484.1 - Medications Medications: Current Medications Al Hydrox/Mg Hydrox/Simethicone (Maalox Plus 30 Ml) 30 ml PO Q4H PRN PRN Reason: Indigestion / Heartburn Last Admin: 04/06/18 14:50 Dose: 30 ml Amiodarone HCl (Cordarone) 200 mg PO Q12 [facility] Last Admin: 04/06/18 10:37 Dose: 200 mg Aspirin (Aspirin Chewable) 81 mg PO DAILY [facility] Last Admin: 04/05/18 10:29 Dose: 81 mg Dextrose (Dextrose 50% Inj) 0 ml IV STAT PRN; Protocol PRN Reason: Hypoglycemia Protocol Dextrose (Glutose 15) 0 gm PO ONCE PRN; Protocol PRN Reason: Hypoglycemia Protocol Glucagon (Glucagen Diagnostic Kit) 0 mg IM STAT PRN; Protocol PRN Reason: Hypoglycemia Protocol Meropenem 500 mg/ Sodium (Chloride) 100 mls @ 100 mls/hr IVPB Q8 KARAN PRN Reason: Protocol Last Admin: 04/06/18 13:01 Dose: 100 mls/hr Vancomycin/Sodium Chloride (Vancomycin 1 Gm/Ns 200 Ml) 1 gm in 200 mls @ 133.333 mls/hr IVPB Q48H KARAN PRN Reason: Protocol Last Admin: 04/05/18 07:43 Dose: 133.333 mls/hr Dextrose (Dextrose 5% In Water 1000 Ml) 1,000 mls @ 0 mls/hr IV .Q0M PRN; Protocol; Per Protocol PRN Reason: Hypoglycemia Protocol Heparin Sodium/Sodium Chloride (Heparin 50945 Units/250ml 1/2 Normal Saline) 25 ,000 units in 250 mls @ 15.177 mls/hr IV .[id number] PRN; Protocol; 14 UNITS/KG/HR PRN Reason: PROTOCOL Last Admin: 04/06/18 17:30 Dose: 14 units/kg/hr, 15.177 mls/hr Insulin Human Regular (Novolin R) 0 unit SC ACHS KARAN PRN Reason: Protocol Last Admin: 04/06/18 16:54 Dose: 1 units Midodrine (Proamatine) 5 mg PO TID [facility] Last Admin: 04/06/18 17:19 Dose: 5 mg Pantoprazole Sodium (Protonix Inj) 40 mg IVP Q12H [facility] Last Admin: 04/06/18 17:19 Dose: 40 mg Saccharomyces Boulardii (Florastor) 250 mg PO Q12 [facility] Last Admin: 04/06/18 10:37 Dose: 250 mg - Labs Labs: 04/06/18 12:32 04/06/18 06:19 PT 13.3 SECONDS (9.7-12.2) H 04/02/18 15:25 INR 1.2 04/02/18 15:25 APTT 32 SECONDS (21-34) D 04/06/18 16:22
[2018-04-06 21:51] LABS: MEAN CORPUSCULAR HEMOGLOBIN 30.4 pg (27.0-31.0)
[2018-04-06 21:52] LABS: BASO # 0.1 K/uL (0.0-0.2); BASO % 0.5 % (0.0-2.0); EOS # 0.2 K/uL (0.0-0.7); EOS % 0.9 % (0.0-4.0); HEMOGLOBIN 8.5 g/dL (12.0-18.0); LYMPH # 0.6 K/uL (1.0-4.3); LYMPH % 3.1 % (20.0-40.0); MEAN CELL VOLUME 93.8 fL (80.0-94.0); MEAN CORPUSCULAR HGB CONC 32.4 g/dL (33.0-37.0); MEAN PLATELET VOLUME 8.7 fL (7.2-11.7); MONO # 0.9 K/uL (0.0-0.8); MONO % 5.1 % (0.0-10.0); NEUT # 16.5 K/uL (1.8-7.0); NEUT % 90.4 % (50.0-75.0); NRBC % 0.1 % (0.0-2.0); PLATELET COUNT 138 K/uL (130-400); RED CELL DISTRIBUTION WIDTH 14.6 % (11.5-14.5); WHITE BLOOD COUNT 18.3 K/uL (4.8-10.8)
[2018-04-06 23:32] LABS: BANDS 3 % (0-2); GIANT PLATELETS PRESENT; LYMPHOCYTE 4 % (20-40); METAMYELOCYTE 3 % (0-0); MONOCYTE 1 % (0-10); MYELOCYTE 4 % (0-0); NEUTROPHIL 82 % (50-75); PLATELET CLUMPS PRESENT; PLATELET ESTIMATE NORMAL (NORMAL); PROMYELOCYTE 1 % (0-0); REACTIVE LYMPHOCYTES 2 % (0-0); TOTAL CELLS COUNTED 100; TOXIC GRANULATION PRESENT
--- NOTE | 2018-04-07 00:05 | CP.PCM.PN ---
Subjective - Date & Time of Evaluation Date of Evaluation: 04/06/18 Time of Evaluation: 16:15 - Subjective Subjective: Patient seen and evaluated comfortable Denies chest pain and dyspnea Positive blood cultures For AMANDA tomorrow around 10.30am Review of Systems - Review of Systems Systems not reviewed;Unavailable: Altered Mental Status Review of Systems: Per son: - Constitutional Constitutional: Chills, Fever, Lethargy, Malaise - Cardiovascular Cardiovascular: absent: Chest Pain - Respiratory Respiratory: Dyspnea - Gastrointestinal Gastrointestinal: absent: Abdominal Pain - Genitourinary Genitourinary: absent: Dysuria Physical Exam - Constitutional Appears: In Acute Distress - Head Exam Head Exam: ATRAUMATIC, NORMAL INSPECTION - Eye Exam Eye Exam: EOMI Pupil Exam: PERRL - ENT Exam ENT Exam: Mucous Membranes Dry - Neck Exam Neck exam: Positive for: Normal Inspection - Respiratory Exam Respiratory Exam: Clear to Auscultation Bilateral, NORMAL BREATHING PATTERN. absent: Rales, Rhonchi, Wheezes - Cardiovascular Exam Cardiovascular Exam: Tachycardia, +S1, +S2. absent: JVD - GI/Abdominal Exam GI & Abdominal Exam: Diminished Bowel Sounds, Soft - Extremities Exam Extremities exam: Negative for: normal capillary refill - Neurological Exam Neurological exam: Altered Objective - Vital Signs/Intake and Output Vital Signs (last 24 hours): Temp Pulse Resp BP Pulse Ox 98 F 87 16 109/51 L 94 L 04/06/18 20:00 04/06/18 22:14 04/06/18 22:14 04/06/18 22:14 04/06/18 20:00 Intake and Output: 04/06/18 04/07/18 18:59 06:59 Intake Total 854.1 60.8 Output Total 370 Balance 484.1 60.8 - Medications Medications: Current Medications Al Hydrox/Mg Hydrox/Simethicone (Maalox Plus 30 Ml) 30 ml PO Q4H PRN PRN Reason: Indigestion / Heartburn Last Admin: 04/06/18 14:50 Dose: 30 ml Amiodarone HCl (Cordarone) 200 mg PO Q12 [facility] Last Admin: 04/06/18 22:20 Dose: 200 mg Aspirin (Aspirin Chewable) 81 mg PO DAILY [facility] Last Admin: 04/05/18 10:29 Dose: 81 mg Dextrose (Dextrose 50% Inj) 0 ml IV STAT PRN; Protocol PRN Reason: Hypoglycemia Protocol Dextrose (Glutose 15) 0 gm PO ONCE PRN; Protocol PRN Reason: Hypoglycemia Protocol Glucagon (Glucagen Diagnostic Kit) 0 mg IM STAT PRN; Protocol PRN Reason: Hypoglycemia Protocol Meropenem 500 mg/ Sodium (Chloride) 100 mls @ 100 mls/hr IVPB Q8 KARAN PRN Reason: Protocol Last Admin: 04/06/18 13:01 Dose: 100 mls/hr Dextrose (Dextrose 5% In Water 1000 Ml) 1,000 mls @ 0 mls/hr IV .Q0M PRN; Protocol; Per Protocol PRN Reason: Hypoglycemia Protocol Heparin Sodium/Sodium Chloride (Heparin 11045 Units/250ml 1/2 Normal Saline) 25 ,000 units in 250 mls @ 15.177 mls/hr IV .[id number] PRN; Protocol; 14 UNITS/KG/HR PRN Reason: PROTOCOL Last Admin: 04/06/18 17:30 Dose: 14 units/kg/hr, 15.177 mls/hr Insulin Human Regular (Novolin R) 0 unit SC ACHS KARAN PRN Reason: Protocol Last Admin: 04/06/18 22:11 Dose: Not Given Midodrine (Proamatine) 5 mg PO TID [facility] Last Admin: 04/06/18 17:19 Dose: 5 mg Pantoprazole Sodium (Protonix Inj) 40 mg IVP Q12H [facility] Last Admin: 04/06/18 17:19 Dose: 40 mg Saccharomyces Boulardii (Florastor) 250 mg PO Q12 [facility] Last Admin: 04/06/18 22:21 Dose: 250 mg - Labs Labs: 04/06/18 21:47 04/06/18 06:19 PT 13.3 SECONDS (9.7-12.2) H 04/02/18 15:25 INR 1.2 04/02/18 15:25 APTT 32 SECONDS (21-34) D 04/06/18 16:22 Assessment and Plan - Assessment and Plan (Free Text) Assessment: This is a 72 year old male with PMHx of arthritis, history of colon polyps, kidney stones, renal insufficiency, glaucoma s/p partial colectomy brought by EMS as aptient fell out of his chair. Admitted for severe sepsis, septic shock 2 /2 bilateral lower extremity cellulitis, metabolic encephalopathy 2/2 ARF ( severe metabolic acidosis and uremia), and atrial fibrillation with RVR. Right PICC line placed 04/05 AMANDA 04/07- Plan: Neuro: [id number] A: AMS - RESOLVED - Head CT - negative A: Metabolic Encephalopathy - RESOLVED - Likely 2/2 uremia and severe metabolic acidosis from ARF Cardio: A: New Onset Atrial Fibrillation with RVR - rate controlled - ECHO: LVEF 60-65%, LVH, sclerotic trileaflet aortic valve - TSH, Free T4 - WNL - Was given digoxin, verapamil - Currently on OFF amio and verapamil drip - Now on Amio 200mg PO Q12 - Heparin drip started - will be discontinued 04/08--> Eliquis 5mg PO BID A: Hypotension - resolving - Stopped vaso; Currently on Midodrine ; tolerating well - Started LR @75cc GI: A: Diarrhea - RESOLVING - Started on vanco, flagyl - Cdiff negative, stool studies negative A: Cholelithiasis - CT chest/ab/pel: No evidence of pneumonia or empyema. Possible cholelithiasis. Correlate with ultrasound examination. Status post subtotal colectomy. Mural thickening of small bowel loops in the right lower quadrant. Nonspecific finding. Small hiatal hernia. Bilateral gynecomastia. Stable left adrenal adenoma. Small left renal cortical cyst. - Abdominal US: Cholelithiasis with prominent gallbladder calculus up to 2.3 cm at the neck of the gallbladde, additional calculus at the neck of the gallbladder measuring 1.3 cm. CBD 4.8mm. - T. bili now 0.8 A: Hx of Colon CA s/p subtotal colectomy? Endo: A: T2DM - Accuchecks, ISS - A1C 7.2 Renal: A: Acute Renal Failure with severe metabolic acidosis, hyperkalemia - RESOLVED -- Dr. Luna consulted - Right Shiley placed 04/02 - Received dialysis 04/02 - Started on Bicarb drip @ 75cc/hr - DC - HD TTS - SHILEY REMOVED 04/06 - no more dialysis at this time, renal function improving ID: A: Septic Shock -- ID consulted, Dr. Valdez -- Wound Care - 11/11 bilateral lower extremity cellulitis - BC grew Pasteurella, f/u repeat BC 04/07 - Wound Culture: Serratia Marcescens - Started on Meropenem 04/02/18 (VANCO was DC) A: + Blood Cultures - AMANDA 04/07 - r/o endocarditis A: Bilateral Lower Extremity Cellulitis -- Podiatry was consulted -- Wound care on board - Venous dopplers ordered - NEGATIVE FOR DVT - Xray - negative for osteo Heme/Onc: A: Anemia, thrombocytopenia - Baseline 11 - DDAVP given, albumin 25grms given, ASA, heparin held - Stool occult + - Hemoglobin is stabilizing 04/07 - stopped PPI Q12, now daily, resumed ASA, hep (will transition to Eliquis) - Continue to monitor Prophylaxis: - PPI - SCDs c/i, Heparin drip --> Eliquis - Florastor started - PT/ OT - POLST form filled out: Patient is DNR/DNI - Consent: Fredo Bowden, , [place] [phone] - Case management for detention placement - Right PICC Line - 04/05
[2018-04-07] MEDS: Heparin25000 units/250ml 1/2NS 25,000 UNITS/250 ML BAG IV PRN ×2 (01:40→16:54)
[2018-04-07] MEDS: Meropenem 500 MG in Sodium Chloride 0.9% 100 ML IVPB SCH ×3 (05:11→22:09)
[2018-04-07 06:24] LABS: BASO % 0.1 % (0.0-2.0); EOS # 0.1 K/uL (0.0-0.7); EOS % 0.8 % (0.0-4.0); HEMOGLOBIN 8.7 g/dL (12.0-18.0); LYMPH # 0.8 K/uL (1.0-4.3); LYMPH % 4.5 % (20.0-40.0); MEAN CORPUSCULAR HEMOGLOBIN 31.4 pg (27.0-31.0); MEAN CORPUSCULAR HGB CONC 33.4 g/dL (33.0-37.0); MEAN PLATELET VOLUME 9.2 fL (7.2-11.7); MONO % 5.5 % (0.0-10.0); NEUT # 15.8 K/uL (1.8-7.0); NEUT % 89.1 % (50.0-75.0); NRBC % 0.2 % (0.0-2.0); PLATELET COUNT 131 K/uL (130-400); RBC 2.77 Mil/uL (4.40-5.90); RED CELL DISTRIBUTION WIDTH 14.8 % (11.5-14.5); WHITE BLOOD COUNT 17.7 K/uL (4.8-10.8)
[2018-04-07 06:41] LABS: ALBUMIN 2.4 g/dL (3.5-5.0); CALCIUM 7.6 mg/dl (8.6-10.4)
[2018-04-07] MEDS ORDERED: Potassium Phosphate 15 MMOLE in Sodium Chloride 0.9% 250 ML IVPB ONE (07:20)
--- NOTE | 2018-04-07 08:04 | CP.CCUPN ---
Addendum entered and electronically signed by Terri Mc DO 04/07/18 11:38 : AMANDA PERFORMED NEGATIVE FOR ENDOCARDITIS Addendum entered and electronically signed by Terri Mc DO 04/07/18 09:46 : Abdominal xray ordered: Possible mechanical small-bowel obstruction. Small right pleural effusion. Will order CT scan with PO contrast to evaluate. Patient is eating, no nausea, vomiting, had diarrhea initially, now small formed bowel movements. Original Note: <Terri Mc - Last Filed: 04/07/18 09:30> CCU Subjective - Physician Review Subjective (Free Text): Patient is seen and examined at bedside. Patient reports generalized abdominal pain, diarrhea. Admits to pain all over, worst in the legs. Patient is upset he cannot eat until after scheduled 10:30am AMANDA. Explained the importance of the exam and patient stated he understood. CCU Objective - Vital Signs / Intake & Output Vital Signs (Last 4 hours): Vital Signs Temp Pulse Resp BP Pulse Ox 04/07/18 07:01 90 16 107/59 L 95 04/07/18 07:00 83 16 93 L 04/07/18 06:01 83 16 107/48 L 95 04/07/18 06:00 92 H 20 97 04/07/18 05:22 96 H 17 101/44 L 94 L 04/07/18 05:00 91 H 96 04/07/18 04:01 83 16 103/54 L 94 L 04/07/18 04:00 98.2 F 88 16 96 Intake and Output (Last 8hrs): Intake & Output 04/06/18 04/07/18 04/07/18 22:59 06:59 14:59 Intake Total 360.8 671.6 15.2 Output Total 80 Balance 280.8 671.6 15.2 Weight 239 lb Intake: IV 200 250 Intake, IV Amount 60.8 121.6 15.2 Right PICC 60.8 121.6 15.2 Oral 100 300 Output: Urine 80 Urethral (Borges) 80 Other: # Voids Urine, Voided 0 0 0 # Bowel Movements 1 1 - Physical Exam Head: Positive for: Atraumatic, Normocephalic Pupils: Positive for: PERRL Extroacular Muscles: Positive for: EOMI Conjunctiva: Positive for: Normal Mouth: Positive for: Dry Neck: Positive for: Normal Range of Motion Respiratory/Chest: Positive for: Clear to Auscultation. Negative for: Decreased Breath Sounds Cardiovascular: Positive for: Tachycardic Abdomen: Positive for: Distention (As per patient this is his baseline ), Normal Bowel Sounds. Negative for: Tenderness Upper Extremity: Positive for: Normal Inspection, NORMAL PULSES, Neurovascularly Intact Lower Extremity: Positive for: CALF TENDERNESS, Tenderness, Swelling, Erythema, Other (severe cellulitis noted bilateral lower extremities with eschar noted on heels, fungus. Open wounds on superior and lateral aspects of shins. Currently wrapped by wound care. ) Neurological: Positive for: GCS=15, CN II-XII Intact Skin: Positive for: Warm, Dry Psychiatric: Positive for: Alert - Medications Active Medications: Active Medications Generic Name Dose Route Start Last Admin Trade Name Freq PRN Reason Stop Dose Admin Al Hydrox/Mg Hydrox/Simethicone 30 ml 04/06/18 14:07 04/06/18 14:50 Maalox Plus 30 Ml PO 30 ml Q4H PRN Administration Indigestion / Heartburn Amiodarone HCl 200 mg 04/04/18 11:00 04/06/18 22:20 Cordarone PO 200 mg Q12 KARAN Administration Aspirin 81 mg 04/05/18 10:15 04/05/18 10:29 Aspirin Chewable PO 81 mg DAILY KARAN Administration Dextrose 0 ml 04/03/18 12:00 Dextrose 50% Inj IV STAT PRN Hypoglycemia Protocol Protocol Dextrose 0 gm 04/03/18 12:00 Glutose 15 PO ONCE PRN Hypoglycemia Protocol Protocol Glucagon 0 mg 04/03/18 12:00 Glucagen Diagnostic Kit IM STAT PRN Hypoglycemia Protocol Protocol Meropenem 500 mg/ Sodium 100 mls @ 100 mls/hr 04/03/18 06:00 04/07/18 05:11 Chloride IVPB 100 mls/hr Q8 KARAN Administration Protocol Dextrose 1,000 mls @ 0 mls/hr 04/03/18 12:00 Dextrose 5% In Water 1000 Ml IV .Q0M PRN Hypoglycemia Protocol Protocol Per Protocol Heparin Sodium/Sodium Chloride 25,000 units in 250 mls @ 15.177 mls/hr 21:00 04/07/18 01:40 Heparin 78984 Units/250ml 1/2 Normal Saline IV 14 units/kg/hr .[id number] PRN 15.177 mls/hr PROTOCOL Administration Protocol 14 UNITS/KG/HR Potassium Phosphate 15 mmole/ 255 mls @ 42.5 mls/hr 04/07/18 07:20 Sodium Chloride IVPB 04/07/18 13:19 ONCE ONE Insulin Human Regular 0 unit 04/03/18 14:15 04/06/18 22:11 Novolin R SC Not Given ACHS KARAN Protocol Midodrine 5 mg 04/06/18 10:00 04/06/18 17:19 Proamatine PO 5 mg TID KARAN Administration Pantoprazole Sodium 40 mg 04/06/18 18:00 04/07/18 06:11 Protonix Inj IVP 40 mg Q12H KARAN Administration Saccharomyces Boulardii 250 mg 04/03/18 10:00 04/06/18 22:21 Florastor PO 250 mg Q12 KARAN Administration - Patient Studies Lab Studies: Microbiology Studies 04/02/18 15:50 Blood Culture - Final Blood Pasteurella Multocida Gram Stain - Final 04/02/18 15:00 Blood Culture - Final Blood Pasteurella Multocida Gram Stain - Final Lab Studies 04/07/18 04/07/18 04/07/18 Range/Units 07:36 06:14 06:14 WBC (4.8-10.8) K/uL RBC (4.40-5.90) Mil/uL Hgb (12.0-18.0) g/dL Hct (35.0-51.0) % MCV (80.0-94.0) fL MCH (27.0-31.0) pg MCHC (33.0-37.0) g/dL RDW (11.5-14.5) % Plt Count (130-400) K/uL MPV (7.2-11.7) fL Neut % (Auto) (50.0-75.0) % Lymph % (Auto) (20.0-40.0) % [place] % (Auto) (0.0-10.0) % Eos % (Auto) (0.0-4.0) % Baso % (Auto) (0.0-2.0) % Neut # (Auto) (1.8-7.0) K/uL Lymph # (Auto) (1.0-4.3) K/uL [place] # (Auto) (0.0-0.8) K/uL Eos # (Auto) (0.0-0.7) K/uL Baso # (Auto) (0.0-0.2) K/uL Neutrophils % (Manual) (50-75) % Band Neutrophils % (0-2) % Lymphocytes % (Manual) (20-40) % Reactive Lymphs % (0-0) % Monocytes % (Manual) (0-10) % Eosinophils % (Manual) (0-4) % Metamyelocytes % (0-0) % Myelocytes % (0-0) % Promyelocytes % (0-0) % Differential Comment Toxic Granulation Platelet Estimate (NORMAL) Plt Clumps, EDTA Giant Platelets Poikilocytosis (manual Ovalocytes APTT 61 H D (21-34) SECONDS Sodium 136 (132-148) mmol/L Potassium 3.5 L (3.6-5.2) mmol/L Chloride 105 (98-107) mmol/L Carbon Dioxide 24 (22-30) mmol/L Anion Gap 11 (10-20) BUN 61 H (9-20) mg/dL Creatinine 1.7 H (0.8-1.5) mg/dL Est GFR ( Amer) 48 Est GFR (Non-Af Amer) 40 POC Glucose (mg/dL) 147 H (65-110) mg/dL Random Glucose 146 H (75-110) mg/dL Calcium 7.6 L (8.6-10.4) mg/dl Phosphorus 2.4 L (2.5-4.5) mg/dL Magnesium 2.3 (1.6-2.3) mg/dL Total Bilirubin 0.5 (0.2-1.3) mg/dL AST 17 (17-59) U/L ALT 28 (21-72) U/L Alkaline Phosphatase 86 (38-126) U/L Total Protein 4.7 L (6.3-8.3) g/dL Albumin 2.4 L (3.5-5.0) g/dL Globulin 2.4 (2.2-3.9) gm/dL Albumin/Globulin Ratio 1.0 (1.0-2.1) Stool Occult Blood (NEGATIVE) Blood Type Antibody Screen 04/07/18 04/06/1804/06/18 Range/Units 06:14 23:56 21:47 WBC 17.7 H 18.3 H (4.8-10.8) K/uL RBC 2.77 L 2.80 L (4.40-5.90) Mil/uL Hgb 8.7 L 8.5 L (12.0-18.0) g/dL Hct 26.0 L 26.3 L (35.0-51.0) % MCV 94.0 93.8 (80.0-94.0) fL MCH 31.4 H 30.4 (27.0-31.0) pg MCHC 33.4 32.4 L (33.0-37.0) g/dL RDW 14.8 H 14.6 H (11.5-14.5) % Plt Count 131 138 (130-400) K/uL MPV 9.2 8.7 (7.2-11.7) fL Neut % (Auto) 89.1 H 90.4 H (50.0-75.0) % Lymph % (Auto) 4.5 L 3.1 L (20.0-40.0) % [place] % (Auto) 5.5 5.1 (0.0-10.0) % Eos % (Auto) 0.8 0.9 (0.0-4.0) % Baso % (Auto) 0.1 0.5 (0.0-2.0) % Neut # (Auto) 15.8 H 16.5 H (1.8-7.0) K/uL Lymph # (Auto) 0.8 L 0.6 L (1.0-4.3) K/uL [place] # (Auto) 1.0 H 0.9 H (0.0-0.8) K/uL Eos # (Auto) 0.1 0.2 (0.0-0.7) K/uL Baso # (Auto) 0.0 0.1 (0.0-0.2) K/uL Neutrophils % (Manual) 82 H (50-75) % Band Neutrophils % 3 H (0-2) % Lymphocytes % (Manual) 4 L (20-40) % Reactive Lymphs % 2 H (0-0) % Monocytes % (Manual) 1 (0-10) % Eosinophils % (Manual) (0-4) % Metamyelocytes % 3 H (0-0) % Myelocytes % 4 H (0-0) % Promyelocytes % 1 H (0-0) % Differential Comment Toxic Granulation Present Platelet Estimate Normal (NORMAL) Plt Clumps, EDTA Present Giant Platelets Present Poikilocytosis (manual Ovalocytes APTT 55 H D (21-34) SECONDS Sodium (132-148) mmol/L Potassium (3.6-5.2) mmol/L Chloride (98-107) mmol/L Carbon Dioxide (22-30) mmol/L Anion Gap (10-20) BUN (9-20) mg/dL Creatinine (0.8-1.5) mg/dL Est GFR ( Amer) Est GFR (Non-Af Amer) POC Glucose (mg/dL) (65-110) mg/dL Random Glucose (75-110) mg/dL Calcium (8.6-10.4) mg/dl Phosphorus (2.5-4.5) mg/dL Magnesium (1.6-2.3) mg/dL Total Bilirubin (0.2-1.3) mg/dL AST (17-59) U/L ALT (21-72) U/L Alkaline Phosphatase (38-126) U/L Total Protein (6.3-8.3) g/dL Albumin (3.5-5.0) g/dL Globulin (2.2-3.9) gm/dL Albumin/Globulin Ratio (1.0-2.1) Stool Occult Blood (NEGATIVE) Blood Type Antibody Screen 04/06/18 04/06/18 04/06/18 Range/Units 21:19 18:04 16:22 WBC (4.8-10.8) K/uL RBC (4.40-5.90) Mil/uL Hgb (12.0-18.0) g/dL Hct (35.0-51.0) % MCV (80.0-94.0) fL MCH (27.0-31.0) pg MCHC (33.0-37.0) g/dL RDW (11.5-14.5) % Plt Count (130-400) K/uL MPV (7.2-11.7) fL Neut % (Auto) (50.0-75.0) % Lymph % (Auto) (20.0-40.0) % [place] % (Auto) (0.0-10.0) % Eos % (Auto) (0.0-4.0) % Baso % (Auto) (0.0-2.0) % Neut # (Auto) (1.8-7.0) K/uL Lymph # (Auto) (1.0-4.3) K/uL [place] # (Auto) (0.0-0.8) K/uL Eos # (Auto) (0.0-0.7) K/uL Baso # (Auto) (0.0-0.2) K/uL Neutrophils % (Manual) (50-75) % Band Neutrophils % (0-2) % Lymphocytes % (Manual) (20-40) % Reactive Lymphs % (0-0) % Monocytes % (Manual) (0-10) % Eosinophils % (Manual) (0-4) % Metamyelocytes % (0-0) % Myelocytes % (0-0) % Promyelocytes % (0-0) % Differential Comment Toxic Granulation Platelet Estimate (NORMAL) Plt Clumps, EDTA Giant Platelets Poikilocytosis (manual Ovalocytes APTT 32 D (21-34) SECONDS Sodium (132-148) mmol/L Potassium (3.6-5.2) mmol/L Chloride (98-107) mmol/L Carbon Dioxide (22-30) mmol/L Anion Gap (10-20) BUN (9-20) mg/dL Creatinine (0.8-1.5) mg/dL Est GFR ( Amer) Est GFR (Non-Af Amer) POC Glucose (mg/dL) 141 H (65-110) mg/dL Random Glucose (75-110) mg/dL Calcium (8.6-10.4) mg/dl Phosphorus (2.5-4.5) mg/dL Magnesium (1.6-2.3) mg/dL Total Bilirubin (0.2-1.3) mg/dL AST (17-59) U/L ALT (21-72) U/L Alkaline Phosphatase (38-126) U/L Total Protein (6.3-8.3) g/dL Albumin (3.5-5.0) g/dL Globulin (2.2-3.9) gm/dL Albumin/Globulin Ratio (1.0-2.1) Stool Occult Blood (NEGATIVE) Blood Type A POSITIVE Antibody Screen Negative 04/06/18 04/06/18 04/06/18 Range/Units 15:57 15:40 12:32 WBC 15.5 H (4.8-10.8) K/uL RBC 2.58 L (4.40-5.90) Mil/uL Hgb 8.0 L (12.0-18.0) g/dL Hct 24.4 L (35.0-51.0) % MCV 94.5 H (80.0-94.0) fL MCH 31.1 H (27.0-31.0) pg MCHC 32.9 L (33.0-37.0) g/dL RDW 14.9 H (11.5-14.5) % Plt Count 126 L D (130-400) K/uL MPV 8.6 (7.2-11.7) fL Neut % (Auto) (50.0-75.0) % Lymph % (Auto) (20.0-40.0) % [place] % (Auto) (0.0-10.0) % Eos % (Auto) (0.0-4.0) % Baso % (Auto) (0.0-2.0) % Neut # (Auto) (1.8-7.0) K/uL Lymph # (Auto) (1.0-4.3) K/uL [place] # (Auto) (0.0-0.8) K/uL Eos # (Auto) (0.0-0.7) K/uL Baso # (Auto) (0.0-0.2) K/uL Neutrophils % (Manual) (50-75) % Band Neutrophils % (0-2) % Lymphocytes % (Manual) (20-40) % Reactive Lymphs % (0-0) % Monocytes % (Manual) (0-10) % Eosinophils % (Manual) (0-4) % Metamyelocytes % (0-0) % Myelocytes % (0-0) % Promyelocytes % (0-0) % Differential Comment Toxic Granulation Platelet Estimate (NORMAL) Plt Clumps, EDTA Giant Platelets Poikilocytosis (manual Ovalocytes APTT (21-34) SECONDS Sodium (132-148) mmol/L Potassium (3.6-5.2) mmol/L Chloride (98-107) mmol/L Carbon Dioxide (22-30) mmol/L Anion Gap (10-20) BUN (9-20) mg/dL Creatinine (0.8-1.5) mg/dL Est GFR ( Amer) Est GFR (Non-Af Amer) POC Glucose (mg/dL) 192 H (65-110) mg/dL Random Glucose (75-110) mg/dL Calcium (8.6-10.4) mg/dl Phosphorus (2.5-4.5) mg/dL Magnesium (1.6-2.3) mg/dL Total Bilirubin (0.2-1.3) mg/dL AST (17-59) U/L ALT (21-72) U/L Alkaline Phosphatase (38-126) U/L Total Protein (6.3-8.3) g/dL Albumin (3.5-5.0) g/dL Globulin (2.2-3.9) gm/dL Albumin/Globulin Ratio (1.0-2.1) Stool Occult Blood Positive H (NEGATIVE) Blood Type Antibody Screen 04/06/18 04/06/18 Range/Units 12:06 06:18 WBC (4.8-10.8) K/uL RBC (4.40-5.90) Mil/uL Hgb (12.0-18.0) g/dL Hct (35.0-51.0) % MCV (80.0-94.0) fL MCH (27.0-31.0) pg MCHC (33.0-37.0) g/dL RDW (11.5-14.5) % Plt Count (130-400) K/uL MPV (7.2-11.7) fL Neut % (Auto) (50.0-75.0) % Lymph % (Auto) (20.0-40.0) % [place] % (Auto) (0.0-10.0) % Eos % (Auto) (0.0-4.0) % Baso % (Auto) (0.0-2.0) % Neut # (Auto) (1.8-7.0) K/uL Lymph # (Auto) (1.0-4.3) K/uL [place] # (Auto) (0.0-0.8) K/uL Eos # (Auto) (0.0-0.7) K/uL Baso # (Auto) (0.0-0.2) K/uL Neutrophils % (Manual) 79 H (50-75) % Band Neutrophils % 5 H (0-2) % Lymphocytes % (Manual) 7 L (20-40) % Reactive Lymphs % (0-0) % Monocytes % (Manual) 6 (0-10) % Eosinophils % (Manual) 1 (0-4) % Metamyelocytes % (0-0) % Myelocytes % 2 H (0-0) % Promyelocytes % (0-0) % Differential Comment Toxic Granulation Platelet Estimate Normal (NORMAL) Plt Clumps, EDTA Giant Platelets Poikilocytosis (manual Slight Ovalocytes Slight APTT (21-34) SECONDS Sodium (132-148) mmol/L Potassium (3.6-5.2) mmol/L Chloride (98-107) mmol/L Carbon Dioxide (22-30) mmol/L Anion Gap (10-20) BUN (9-20) mg/dL Creatinine (0.8-1.5) mg/dL Est GFR ( Amer) Est GFR (Non-Af Amer) POC Glucose (mg/dL) 224 H (65-110) mg/dL Random Glucose (75-110) mg/dL Calcium (8.6-10.4) mg/dl Phosphorus (2.5-4.5) mg/dL Magnesium (1.6-2.3) mg/dL Total Bilirubin (0.2-1.3) mg/dL AST (17-59) U/L ALT (21-72) U/L Alkaline Phosphatase (38-126) U/L Total Protein (6.3-8.3) g/dL Albumin (3.5-5.0) g/dL Globulin (2.2-3.9) gm/dL Albumin/Globulin Ratio (1.0-2.1) Stool Occult Blood (NEGATIVE) Blood Type Antibody Screen Laboratory Results - last 24 hr 04/06/18 04/06/18 04/06/18 06:18 12:06 12:32 WBC 15.5 H RBC 2.58 L Hgb 8.0 L Hct 24.4 L MCV 94.5 H MCH 31.1 H MCHC 32.9 L RDW 14.9 H Plt Count 126 L D MPV 8.6 Neut % (Auto) Lymph % (Auto) [place] % (Auto) Eos % (Auto) Baso % (Auto) Neut # (Auto) Lymph # (Auto) [place] # (Auto) Eos # (Auto) Baso # (Auto) Neutrophils % (Manual) 79 H Band Neutrophils % 5 H Lymphocytes % (Manual) 7 L Reactive Lymphs % Monocytes % (Manual) 6 Eosinophils % (Manual) 1 Metamyelocytes % Myelocytes % 2 H Promyelocytes % Differential Comment Toxic Granulation Platelet Estimate Normal Plt Clumps, EDTA Giant Platelets Poikilocytosis (manual Slight Ovalocytes Slight APTT Sodium Potassium Chloride Carbon Dioxide Anion Gap BUN Creatinine Est GFR ( Amer) Est GFR (Non-Af Amer) POC Glucose (mg/dL) 224 H Random Glucose Calcium Phosphorus Magnesium Total Bilirubin AST ALT Alkaline Phosphatase Total Protein Albumin Globulin Albumin/Globulin Ratio Stool Occult Blood Blood Type Antibody Screen 04/06/18 04/06/18 04/06/18 15:40 15:57 16:22 WBC RBC Hgb Hct MCV MCH MCHC RDW Plt Count MPV Neut % (Auto) Lymph % (Auto) [place] % (Auto) Eos % (Auto) Baso % (Auto) Neut # (Auto) Lymph # (Auto) [place] # (Auto) Eos # (Auto) Baso # (Auto) Neutrophils % (Manual) Band Neutrophils % Lymphocytes % (Manual) Reactive Lymphs % Monocytes % (Manual) Eosinophils % (Manual) Metamyelocytes % Myelocytes % Promyelocytes % Differential Comment Toxic Granulation Platelet Estimate Plt Clumps, EDTA Giant Platelets Poikilocytosis (manual Ovalocytes APTT 32 D Sodium Potassium Chloride Carbon Dioxide Anion Gap BUN Creatinine Est GFR ( Amer) Est GFR (Non-Af Amer) POC Glucose (mg/dL) 192 H Random Glucose Calcium Phosphorus Magnesium Total Bilirubin AST ALT Alkaline Phosphatase Total Protein Albumin Globulin Albumin/Globulin Ratio Stool Occult Blood Positive H Blood Type Antibody Screen 04/06/18 04/06/18 04/06/18 18:04 21:19 21:47 WBC 18.3 H RBC 2.80 L Hgb 8.5 L Hct 26.3 L MCV 93.8 MCH 30.4 MCHC 32.4 L RDW 14.6 H Plt Count 138 MPV 8.7 Neut % (Auto) 90.4 H Lymph % (Auto) 3.1 L [place] % (Auto) 5.1 Eos % (Auto) 0.9 Baso % (Auto) 0.5 Neut # (Auto) 16.5 H Lymph # (Auto) 0.6 L [place] # (Auto) 0.9 H Eos # (Auto) 0.2 Baso # (Auto) 0.1 Neutrophils % (Manual) 82 H Band Neutrophils % 3 H Lymphocytes % (Manual) 4 L Reactive Lymphs % 2 H Monocytes % (Manual) 1 Eosinophils % (Manual) Metamyelocytes % 3 H Myelocytes % 4 H Promyelocytes % 1 H Differential Comment Toxic Granulation Present Platelet Estimate Normal Plt Clumps, EDTA Present Giant Platelets Present Poikilocytosis (manual Ovalocytes APTT Sodium Potassium Chloride Carbon Dioxide Anion Gap BUN Creatinine Est GFR ( Amer) Est GFR (Non-Af Amer) POC Glucose (mg/dL) 141 H Random Glucose Calcium Phosphorus Magnesium Total Bilirubin AST ALT Alkaline Phosphatase Total Protein Albumin Globulin Albumin/Globulin Ratio Stool Occult Blood Blood Type A POSITIVE Antibody Screen Negative 04/06/18 04/07/18 04/07/18 23:56 06:14 06:14 WBC 17.7 H RBC 2.77 L Hgb 8.7 L Hct 26.0 L MCV 94.0 MCH 31.4 H MCHC 33.4 RDW 14.8 H Plt Count 131 MPV 9.2 Neut % (Auto) 89.1 H Lymph % (Auto) 4.5 L [place] % (Auto) 5.5 Eos % (Auto) 0.8 Baso % (Auto) 0.1 Neut # (Auto) 15.8 H Lymph # (Auto) 0.8 L [place] # (Auto) 1.0 H Eos # (Auto) 0.1 Baso # (Auto) 0.0 Neutrophils % (Manual) Band Neutrophils % Lymphocytes % (Manual) Reactive Lymphs % Monocytes % (Manual) Eosinophils % (Manual) Metamyelocytes % Myelocytes % Promyelocytes % Differential Comment Toxic Granulation Platelet Estimate Plt Clumps, EDTA Giant Platelets Poikilocytosis (manual Ovalocytes APTT 55 H D Sodium 136 Potassium 3.5 L Chloride 105 Carbon Dioxide 24 Anion Gap 11 BUN 61 H Creatinine 1.7 H Est GFR ( Amer) 48 Est GFR (Non-Af Amer) 40 POC Glucose (mg/dL) Random Glucose 146 H Calcium 7.6 L Phosphorus 2.4 L Magnesium 2.3 Total Bilirubin 0.5 AST 17 ALT 28 Alkaline Phosphatase 86 Total Protein 4.7 L Albumin 2.4 L Globulin 2.4 Albumin/Globulin Ratio 1.0 Stool Occult Blood Blood Type Antibody Screen 04/07/18 04/07/18 06:14 07:36 WBC RBC Hgb Hct MCV MCH MCHC RDW Plt Count MPV Neut % (Auto) Lymph % (Auto) [place] % (Auto) Eos % (Auto) Baso % (Auto) Neut # (Auto) Lymph # (Auto) [place] # (Auto) Eos # (Auto) Baso # (Auto) Neutrophils % (Manual) Band Neutrophils % Lymphocytes % (Manual) Reactive Lymphs % Monocytes % (Manual) Eosinophils % (Manual) Metamyelocytes % Myelocytes % Promyelocytes % Differential Comment Toxic Granulation Platelet Estimate Plt Clumps, EDTA Giant Platelets Poikilocytosis (manual Ovalocytes APTT 61 H D Sodium Potassium Chloride Carbon Dioxide Anion Gap BUN Creatinine Est GFR ( Amer) Est GFR (Non-Af Amer) POC Glucose (mg/dL) 147 H Random Glucose Calcium Phosphorus Magnesium Total Bilirubin AST ALT Alkaline Phosphatase Total Protein Albumin Globulin Albumin/Globulin Ratio Stool Occult Blood Blood Type Antibody Screen Fingerstick Blood Sugar Results: 141 Critical Care Progress Note - Nutrition Nutrition: Nutrition Category Date Time Status NPO Diet [DIET] Diets 04/07/18 Breakfast Active Assessment/Plan - Assessment and Plan (Free Text) Assessment: This is a 72 year old male with PMHx of arthritis, history of colon polyps, kidney stones, renal insufficiency, glaucoma s/p partial colectomy brought by EMS as aptient fell out of his chair. Admitted for severe sepsis, septic shock 2 /2 bilateral lower extremity cellulitis, metabolic encephalopathy 2/2 ARF ( severe metabolic acidosis and uremia), and atrial fibrillation with RVR. Right PICC line placed 04/05 AMANDA 04/07- Plan: Neuro: [id number] A: AMS - RESOLVED - Head CT - negative A: Metabolic Encephalopathy - RESOLVED - Likely 2/2 uremia and severe metabolic acidosis from ARF Cardio: A: New Onset Atrial Fibrillation with RVR - rate controlled - ECHO: LVEF 60-65%, LVH, sclerotic trileaflet aortic valve - TSH, Free T4 - WNL - Was given digoxin, verapamil - Currently on OFF amio and verapamil drip - Now on Amio 200mg PO Q12 - Heparin drip started - will be discontinued 04/08--> Eliquis 5mg PO BID A: Hypotension - resolving - Stopped vaso; Currently on Midodrine ; tolerating well - Started LR @75cc GI: A: Diarrhea - RESOLVING - Started on vanco, flagyl - Cdiff negative, stool studies negative A: Cholelithiasis - CT chest/ab/pel: No evidence of pneumonia or empyema. Possible cholelithiasis. Correlate with ultrasound examination. Status post subtotal colectomy. Mural thickening of small bowel loops in the right lower quadrant. Nonspecific finding. Small hiatal hernia. Bilateral gynecomastia. Stable left adrenal adenoma. Small left renal cortical cyst. - Abdominal US: Cholelithiasis with prominent gallbladder calculus up to 2.3 cm at the neck of the gallbladde, additional calculus at the neck of the gallbladder measuring 1.3 cm. CBD 4.8mm. - T. bili now 0.8 A: Hx of Colon CA s/p subtotal colectomy? Endo: A: T2DM - Accuchecks, ISS - A1C 7.2 Renal: A: Acute Renal Failure with severe metabolic acidosis, hyperkalemia - RESOLVED -- Dr. Luna consulted - Right Shiley placed 04/02 - Received dialysis 04/02 - Started on Bicarb drip @ 75cc/hr - DC - HD TTS - SHILEY REMOVED 04/06 - no more dialysis at this time, renal function improving ID: A: Septic Shock -- ID consulted, Dr. Valdez -- Wound Care - 11/11 bilateral lower extremity cellulitis - BC grew Pasteurella, f/u repeat BC 04/07 - Wound Culture: Serratia Marcescens - Started on Meropenem 04/02/18 (VANCO was DC) A: + Blood Cultures - AMANDA 04/07 - r/o endocarditis A: Bilateral Lower Extremity Cellulitis -- Podiatry was consulted -- Wound care on board - Venous dopplers ordered - NEGATIVE FOR DVT - Xray - negative for osteo Heme/Onc: A: Anemia, thrombocytopenia - Baseline 11 - DDAVP given, albumin 25grms given, ASA, heparin held - Stool occult + - Hemoglobin is stabilizing 04/07 - stopped PPI Q12, now daily, resumed ASA, hep (will transition to Eliquis) - Continue to monitor Prophylaxis: - PPI - SCDs c/i, Heparin drip --> Eliquis - Florastor started - PT/ OT - POLST form filled out: Patient is DNR/DNI - Consent: Son Troy Bowden, , [place] [phone] - Case management for fdc placement - Right PICC Line - 04/[address] Edwin Pollack, Terri Mc DO, PGY-1 <Edwin Pollack - Last Filed: 04/07/18 16:19> CCU Objective - Vital Signs / Intake & Output Vital Signs (Last 4 hours): Vital Signs Temp Pulse Resp BP Pulse Ox 04/07/18 16:00 97.6 F 04/07/18 15:30 87 14 99 04/07/18 15:00 81 12 86/47 L 99 04/07/18 14:31 94 H 15 92/43 L 100 04/07/18 14:00 89 19 91/55 L 98 04/07/18 13:28 92 H 16 99 04/07/18 13:13 89 17 103/48 L 99 04/07/18 13:00 86 17 100 04/07/18 12:58 85 16 99/48 L 100 04/07/18 12:43 85 14 99/44 L 100 04/07/18 12:28 87 14 92/47 L 100 Intake and Output (Last 8hrs): Intake & Output 04/07/18 04/07/18 04/07/18 06:59 14:59 22:59 Intake Total 671.6 469.6 1180.4 Balance 671.6 469.6 1180.4 Weight 239 lb Intake: IV 250 Intake, IV Amount 121.6 469.6 180.4 Right PICC 121.6 121.6 30.4 right picc 2nd port 348 150 Oral 300 0 1000 Other: # Voids Urine, Voided 0 1 # Bowel Movements 1 1 1 - Medications Active Medications: Active Medications Generic Name Dose Route Start Last Admin Trade Name Freq PRN Reason Stop Dose Admin Al Hydrox/Mg Hydrox/Simethicone 30 ml 04/06/18 14:07 04/06/18 14:50 Maalox Plus 30 Ml PO 30 ml Q4H PRN Administration Indigestion / Heartburn Amiodarone HCl 200 mg 04/04/18 11:00 04/07/18 13:13 Cordarone PO 200 mg Q12 KARAN Administration Apixaban 5 mg 04/08/18 10:00 Eliquis PO BID KARAN Aspirin 81 mg 04/05/18 10:15 04/05/18 10:29 Aspirin Chewable PO 81 mg DAILY KARAN Administration Dextrose 0 ml 04/03/18 12:00 Dextrose 50% Inj IV STAT PRN Hypoglycemia Protocol Protocol Dextrose 0 gm 04/03/18 12:00 Glutose 15 PO ONCE PRN Hypoglycemia Protocol Protocol Glucagon 0 mg 04/03/18 12:00 Glucagen Diagnostic Kit IM STAT PRN Hypoglycemia Protocol Protocol Meropenem 500 mg/ Sodium 100 mls @ 100 mls/hr 04/03/18 06:00 04/07/18 13:19 Chloride IVPB 100 mls/hr Q8 KAARN Administration Protocol Dextrose 1,000 mls @ 0 mls/hr 04/03/18 12:00 Dextrose 5% In Water 1000 Ml IV .Q0M PRN Hypoglycemia Protocol Protocol Per Protocol Heparin Sodium/Sodium Chloride 25,000 units in 250 mls @ 15.177 mls/hr 21:00 04/07/18 01:40 Heparin 52765 Units/250ml 1/2 Normal Saline IV 14 units/kg/hr .[id number] PRN 15.177 mls/hr PROTOCOL Administration Protocol 14 UNITS/KG/HR Lactated Ringer's 1,000 mls @ 75 mls/hr 04/07/18 09:15 04/07/18 09:27 Lactated Ringer's IV 04/07/18 22:34 75 mls/hr .[id number] KARAN Administration Insulin Human Regular 0 unit 04/03/18 14:15 04/07/18 13:16 Novolin R SC Not Given ACHS KARAN Protocol Midodrine 5 mg 04/06/18 10:00 04/07/18 13:17 Proamatine PO 5 mg TID KARAN Administration Pantoprazole Sodium 40 mg 04/07/18 10:00 04/07/18 13:18 Protonix Ec Tab PO 40 mg DAILY KARAN Administration Saccharomyces Boulardii 250 mg 04/03/18 10:00 04/07/18 13:16 Florastor PO 250 mg Q12 KARAN Administration - Patient Studies Lab Studies: Lab Studies 04/07/18 04/07/18 04/07/18 Range/Units 11:33 09:35 07:36 WBC (4.8-10.8) K/uL RBC (4.40-5.90) Mil/uL Hgb (12.0-18.0) g/dL Hct (35.0-51.0) % MCV (80.0-94.0) fL MCH (27.0-31.0) pg MCHC (33.0-37.0) g/dL RDW (11.5-14.5) % Plt Count (130-400) K/uL MPV (7.2-11.7) fL Neut % (Auto) (50.0-75.0) % Lymph % (Auto) (20.0-40.0) % [place] % (Auto) (0.0-10.0) % Eos % (Auto) (0.0-4.0) % Baso % (Auto) (0.0-2.0) % Neut # (Auto) (1.8-7.0) K/uL Lymph # (Auto) (1.0-4.3) K/uL [place] # (Auto) (0.0-0.8) K/uL Eos # (Auto) (0.0-0.7) K/uL Baso # (Auto) (0.0-0.2) K/uL Neutrophils % (Manual) (50-75) % Band Neutrophils % (0-2) % Lymphocytes % (Manual) (20-40) % Reactive Lymphs % (0-0) % Monocytes % (Manual) (0-10) % Metamyelocytes % (0-0) % Myelocytes % (0-0) % Promyelocytes % (0-0) % Toxic Granulation Platelet Estimate (NORMAL) Plt Clumps, EDTA Giant Platelets RBC Morphology APTT (21-34) SECONDS Sodium (132-148) mmol/L Potassium (3.6-5.2) mmol/L Chloride (98-107) mmol/L Carbon Dioxide (22-30) mmol/L Anion Gap (10-20) BUN (9-20) mg/dL Creatinine (0.8-1.5) mg/dL Est GFR ( Amer) Est GFR (Non-Af Amer) POC Glucose (mg/dL) 152 H 147 H (65-110) mg/dL Random Glucose (75-110) mg/dL Calcium (8.6-10.4) mg/dl Phosphorus (2.5-4.5) mg/dL Magnesium (1.6-2.3) mg/dL Total Bilirubin (0.2-1.3) mg/dL AST (17-59) U/L ALT (21-72) U/L Alkaline Phosphatase (38-126) U/L Total Protein (6.3-8.3) g/dL Albumin (3.5-5.0) g/dL Globulin (2.2-3.9) gm/dL Albumin/Globulin Ratio (1.0-2.1) C. difficile Ag & Toxin Negative (NEGATIVE) Blood Type Antibody Screen 04/07/18 04/07/18 04/07/18 Range/Units 06:14 06:14 06:14 WBC 17.7 H (4.8-10.8) K/uL RBC 2.77 L (4.40-5.90) Mil/uL Hgb 8.7 L (12.0-18.0) g/dL Hct 26.0 L (35.0-51.0) % MCV 94.0 (80.0-94.0) fL MCH 31.4 H (27.0-31.0) pg MCHC 33.4 (33.0-37.0) g/dL RDW 14.8 H (11.5-14.5) % Plt Count 131 (130-400) K/uL MPV 9.2 (7.2-11.7) fL Neut % (Auto) 89.1 H (50.0-75.0) % Lymph % (Auto) 4.5 L (20.0-40.0) % [place] % (Auto) 5.5 (0.0-10.0) % Eos % (Auto) 0.8 (0.0-4.0) % Baso % (Auto) 0.1 (0.0-2.0) % Neut # (Auto) 15.8 H (1.8-7.0) K/uL Lymph # (Auto) 0.8 L (1.0-4.3) K/uL [place] # (Auto) 1.0 H (0.0-0.8) K/uL Eos # (Auto) 0.1 (0.0-0.7) K/uL Baso # (Auto) 0.0 (0.0-0.2) K/uL Neutrophils % (Manual) 82 H (50-75) % Band Neutrophils % (0-2) % Lymphocytes % (Manual) 4 L (20-40) % Reactive Lymphs % (0-0) % Monocytes % (Manual) 10 (0-10) % Metamyelocytes % 1 H (0-0) % Myelocytes % 3 H (0-0) % Promyelocytes % (0-0) % Toxic Granulation Platelet Estimate Normal (NORMAL) Plt Clumps, EDTA Giant Platelets RBC Morphology Normal APTT 61 H D (21-34) SECONDS Sodium 136 (132-148) mmol/L Potassium 3.5 L (3.6-5.2) mmol/L Chloride 105 (98-107) mmol/L Carbon Dioxide 24 (22-30) mmol/L Anion Gap 11 (10-20) BUN 61 H (9-20) mg/dL Creatinine 1.7 H (0.8-1.5) mg/dL Est GFR ( Amer) 48 Est GFR (Non-Af Amer) 40 POC Glucose (mg/dL) (65-110) mg/dL Random Glucose 146 H (75-110) mg/dL Calcium 7.6 L (8.6-10.4) mg/dl Phosphorus 2.4 L (2.5-4.5) mg/dL Magnesium 2.3 (1.6-2.3) mg/dL Total Bilirubin 0.5 (0.2-1.3) mg/dL AST 17 (17-59) U/L ALT 28 (21-72) U/L Alkaline Phosphatase 86 (38-126) U/L Total Protein 4.7 L (6.3-8.3) g/dL Albumin 2.4 L (3.5-5.0) g/dL Globulin 2.4 (2.2-3.9) gm/dL Albumin/Globulin Ratio 1.0 (1.0-2.1) C. difficile Ag & Toxin (NEGATIVE) Blood Type Antibody Screen 04/06/18 04/06/18 04/06/18 Range/Units 23:56 21:47 21:19 WBC 18.3 H (4.8-10.8) K/uL RBC 2.80 L (4.40-5.90) Mil/uL Hgb 8.5 L (12.0-18.0) g/dL Hct 26.3 L (35.0-51.0) % MCV 93.8 (80.0-94.0) fL MCH 30.4 (27.0-31.0) pg MCHC 32.4 L (33.0-37.0) g/dL RDW 14.6 H (11.5-14.5) % Plt Count 138 (130-400) K/uL MPV 8.7 (7.2-11.7) fL Neut % (Auto) 90.4 H (50.0-75.0) % Lymph % (Auto) 3.1 L (20.0-40.0) % [place] % (Auto) 5.1 (0.0-10.0) % Eos % (Auto) 0.9 (0.0-4.0) % Baso % (Auto) 0.5 (0.0-2.0) % Neut # (Auto) 16.5 H (1.8-7.0) K/uL Lymph # (Auto) 0.6 L (1.0-4.3) K/uL [place] # (Auto) 0.9 H (0.0-0.8) K/uL Eos # (Auto) 0.2 (0.0-0.7) K/uL Baso # (Auto) 0.1 (0.0-0.2) K/uL Neutrophils % (Manual) 82 H (50-75) % Band Neutrophils % 3 H (0-2) % Lymphocytes % (Manual) 4 L (20-40) % Reactive Lymphs % 2 H (0-0) % Monocytes % (Manual) 1 (0-10) % Metamyelocytes % 3 H (0-0) % Myelocytes % 4 H (0-0) % Promyelocytes % 1 H (0-0) % Toxic Granulation Present Platelet Estimate Normal (NORMAL) Plt Clumps, EDTA Present Giant Platelets Present RBC Morphology APTT 55 H D (21-34) SECONDS Sodium (132-148) mmol/L Potassium (3.6-5.2) mmol/L Chloride (98-107) mmol/L Carbon Dioxide (22-30) mmol/L Anion Gap (10-20) BUN (9-20) mg/dL Creatinine (0.8-1.5) mg/dL Est GFR ( Amer) Est GFR (Non-Af Amer) POC Glucose (mg/dL) 141 H (65-110) mg/dL Random Glucose (75-110) mg/dL Calcium (8.6-10.4) mg/dl Phosphorus (2.5-4.5) mg/dL Magnesium (1.6-2.3) mg/dL Total Bilirubin (0.2-1.3) mg/dL AST (17-59) U/L ALT (21-72) U/L Alkaline Phosphatase (38-126) U/L Total Protein (6.3-8.3) g/dL Albumin (3.5-5.0) g/dL Globulin (2.2-3.9) gm/dL Albumin/Globulin Ratio (1.0-2.1) C. difficile Ag & Toxin (NEGATIVE) Blood Type Antibody Screen 04/06/18 04/06/18 Range/Units 18:04 16:22 WBC (4.8-10.8) K/uL RBC (4.40-5.90) Mil/uL Hgb (12.0-18.0) g/dL Hct (35.0-51.0) % MCV (80.0-94.0) fL MCH (27.0-31.0) pg MCHC (33.0-37.0) g/dL RDW (11.5-14.5) % Plt Count (130-400) K/uL MPV (7.2-11.7) fL Neut % (Auto) (50.0-75.0) % Lymph % (Auto) (20.0-40.0) % [place] % (Auto) (0.0-10.0) % Eos % (Auto) (0.0-4.0) % Baso % (Auto) (0.0-2.0) % Neut # (Auto) (1.8-7.0) K/uL Lymph # (Auto) (1.0-4.3) K/uL [place] # (Auto) (0.0-0.8) K/uL Eos # (Auto) (0.0-0.7) K/uL Baso # (Auto) (0.0-0.2) K/uL Neutrophils % (Manual) (50-75) % Band Neutrophils % (0-2) % Lymphocytes % (Manual) (20-40) % Reactive Lymphs % (0-0) % Monocytes % (Manual) (0-10) % Metamyelocytes % (0-0) % Myelocytes % (0-0) % Promyelocytes % (0-0) % Toxic Granulation Platelet Estimate (NORMAL) Plt Clumps, EDTA Giant Platelets RBC Morphology APTT 32 D (21-34) SECONDS Sodium (132-148) mmol/L Potassium (3.6-5.2) mmol/L Chloride (98-107) mmol/L Carbon Dioxide (22-30) mmol/L Anion Gap (10-20) BUN (9-20) mg/dL Creatinine (0.8-1.5) mg/dL Est GFR ( Amer) Est GFR (Non-Af Amer) POC Glucose (mg/dL) (65-110) mg/dL Random Glucose (75-110) mg/dL Calcium (8.6-10.4) mg/dl Phosphorus (2.5-4.5) mg/dL Magnesium (1.6-2.3) mg/dL Total Bilirubin (0.2-1.3) mg/dL AST (17-59) U/L ALT (21-72) U/L Alkaline Phosphatase (38-126) U/L Total Protein (6.3-8.3) g/dL Albumin (3.5-5.0) g/dL Globulin (2.2-3.9) gm/dL Albumin/Globulin Ratio (1.0-2.1) C. difficile Ag & Toxin (NEGATIVE) Blood Type A POSITIVE Antibody Screen Negative Laboratory Results - last 24 hr 04/06/18 04/06/18 04/06/18 16:22 18:04 21:19 WBC RBC Hgb Hct MCV MCH MCHC RDW Plt Count MPV Neut % (Auto) Lymph % (Auto) [place] % (Auto) Eos % (Auto) Baso % (Auto) Neut # (Auto) Lymph # (Auto) [place] # (Auto) Eos # (Auto) Baso # (Auto) Neutrophils % (Manual) Band Neutrophils % Lymphocytes % (Manual) Reactive Lymphs % Monocytes % (Manual) Metamyelocytes % Myelocytes % Promyelocytes % Toxic Granulation Platelet Estimate Plt Clumps, EDTA Giant Platelets RBC Morphology APTT 32 D Sodium Potassium Chloride Carbon Dioxide Anion Gap BUN Creatinine Est GFR ( Amer) Est GFR (Non-Af Amer) POC Glucose (mg/dL) 141 H Random Glucose Calcium Phosphorus Magnesium Total Bilirubin AST ALT Alkaline Phosphatase Total Protein Albumin Globulin Albumin/Globulin Ratio C. difficile Ag & Toxin Blood Type A POSITIVE Antibody Screen Negative 04/06/18 04/06/18 04/07/18 21:47 23:56 06:14 WBC 18.3 H 17.7 H RBC 2.80 L 2.77 L Hgb 8.5 L 8.7 L Hct 26.3 L 26.0 L MCV 93.8 94.0 MCH 30.4 31.4 H MCHC 32.4 L 33.4 RDW 14.6 H 14.8 H Plt Count 138 131 MPV 8.7 9.2 Neut % (Auto) 90.4 H 89.1 H Lymph % (Auto) 3.1 L 4.5 L [place] % (Auto) 5.1 5.5 Eos % (Auto) 0.9 0.8 Baso % (Auto) 0.5 0.1 Neut # (Auto) 16.5 H 15.8 H Lymph # (Auto) 0.6 L 0.8 L [place] # (Auto) 0.9 H 1.0 H Eos # (Auto) 0.2 0.1 Baso # (Auto) 0.1 0.0 Neutrophils % (Manual) 82 H 82 H Band Neutrophils % 3 H Lymphocytes % (Manual) 4 L 4 L Reactive Lymphs % 2 H Monocytes % (Manual) 1 10 Metamyelocytes % 3 H 1 H Myelocytes % 4 H 3 H Promyelocytes % 1 H Toxic Granulation Present Platelet Estimate Normal Normal Plt Clumps, EDTA Present Giant Platelets Present RBC Morphology Normal APTT 55 H D Sodium Potassium Chloride Carbon Dioxide Anion Gap BUN Creatinine Est GFR ( Amer) Est GFR (Non-Af Amer) POC Glucose (mg/dL) Random Glucose Calcium Phosphorus Magnesium Total Bilirubin AST ALT Alkaline Phosphatase Total Protein Albumin Globulin Albumin/Globulin Ratio C. difficile Ag & Toxin Blood Type Antibody Screen 04/07/18 04/07/18 04/07/18 06:14 06:14 07:36 WBC RBC Hgb Hct MCV MCH MCHC RDW Plt Count MPV Neut % (Auto) Lymph % (Auto) [place] % (Auto) Eos % (Auto) Baso % (Auto) Neut # (Auto) Lymph # (Auto) [place] # (Auto) Eos # (Auto) Baso # (Auto) Neutrophils % (Manual) Band Neutrophils % Lymphocytes % (Manual) Reactive Lymphs % Monocytes % (Manual) Metamyelocytes % Myelocytes % Promyelocytes % Toxic Granulation Platelet Estimate Plt Clumps, EDTA Giant Platelets RBC Morphology APTT 61 H D Sodium 136 Potassium 3.5 L Chloride 105 Carbon Dioxide 24 Anion Gap 11 BUN 61 H Creatinine 1.7 H Est GFR ( Amer) 48 Est GFR (Non-Af Amer) 40 POC Glucose (mg/dL) 147 H Random Glucose 146 H Calcium 7.6 L Phosphorus 2.4 L Magnesium 2.3 Total Bilirubin 0.5 AST 17 ALT 28 Alkaline Phosphatase 86 Total Protein 4.7 L Albumin 2.4 L Globulin 2.4 Albumin/Globulin Ratio 1.0 C. difficile Ag & Toxin Blood Type Antibody Screen 04/07/18 04/07/18 09:35 11:33 WBC RBC Hgb Hct MCV MCH MCHC RDW Plt Count MPV Neut % (Auto) Lymph % (Auto) [place] % (Auto) Eos % (Auto) Baso % (Auto) Neut # (Auto) Lymph # (Auto) [place] # (Auto) Eos # (Auto) Baso # (Auto) Neutrophils % (Manual) Band Neutrophils % Lymphocytes % (Manual) Reactive Lymphs % Monocytes % (Manual) Metamyelocytes % Myelocytes % Promyelocytes % Toxic Granulation Platelet Estimate Plt Clumps, EDTA Giant Platelets RBC Morphology APTT Sodium Potassium Chloride Carbon Dioxide Anion Gap BUN Creatinine Est GFR ( Amer) Est GFR (Non-Af Amer) POC Glucose (mg/dL) 152 H Random Glucose Calcium Phosphorus Magnesium Total Bilirubin AST ALT Alkaline Phosphatase Total Protein Albumin Globulin Albumin/Globulin Ratio C. difficile Ag & Toxin Negative Blood Type Antibody Screen Critical Care Progress Note - Nutrition Nutrition: Nutrition Category Date Time Status NPO Diet [DIET] Diets 04/07/18 Breakfast Active Assessment/Plan - Assessment and Plan (Free Text) Plan: Patient seen and examined at bedside. Patient is off pressors, HD line removed. -will d/c borges -Patient's renal function improving -continue abx -repeat blood culture NGSF -PT/OT -tolerating oral diet -PAtient remains hemodynamically stable. - Date & Time Date: 04/07/18 Time: 16:19
[2018-04-07 08:27] LABS: LYMPHOCYTE 4 % (20-40); METAMYELOCYTE 1 % (0-0); MONOCYTE 10 % (0-10); MYELOCYTE 3 % (0-0); NEUTROPHIL 82 % (50-75); TOTAL CELLS COUNTED 100
[2018-04-07 08:28] LABS: PLATELET ESTIMATE NORMAL (NORMAL)
--- NOTE | 2018-04-07 08:41 | RAD ---
PROCEDURE: Radiographs of the chest and abdomen (obstructive series) HISTORY: Abdominal Distention COMPARISON: No prior. TECHNIQUE: AP radiograph of the chest, with upright and supine radiographs of the abdomen. FINDINGS: CHEST: Lungs: Clear. Cardiovascular: Normal heart size. No congestive change. Right PICC catheter noted. Pleura: Small right pleural effusion. Other findings: None. ABDOMEN AND PELVIS: Bowel: Multiple dilated small bowel loops suspicious for mechanical small bowel obstruction. Cannot evaluate for free air in the absence of upright film. No film labeled upright. Free air: See above Bones: Unremarkable. Other findings: None. IMPRESSION: Possible mechanical small-bowel obstruction. Small right pleural effusion.
--- NOTE | 2018-04-07 09:09 | CP.PCM.PN ---
Subjective - Date & Time of Evaluation Date of Evaluation: 04/07/18 Time of Evaluation: 09:09 - Subjective Subjective: Patient is alert oriented,lying comfortable. He is hungry and cannot await to eat after procedure. Not feeling good , he state that he is feeling sick after started on dialysis 04/02 .Denies pain ,denies sob. Has distended abdomen. State that his belly is big always,but has mild pain now. Having frequent little loose BM. Denies vomiting.denies nausea Objective - Vital Signs/Intake and Output Vital Signs (last 24 hours): Temp Pulse Resp BP Pulse Ox 98.6 F 88 14 106/55 L 97 04/07/18 08:00 04/07/18 08:01 04/07/18 08:01 04/07/18 08:01 04/07/18 08:01 Intake and Output: 04/07/18 04/07/18 06:59 18:59 Intake Total 732.4 45.6 Balance 732.4 45.6 - Medications Medications: Current Medications Al Hydrox/Mg Hydrox/Simethicone (Maalox Plus 30 Ml) 30 ml PO Q4H PRN PRN Reason: Indigestion / Heartburn Last Admin: 04/06/18 14:50 Dose: 30 ml Amiodarone HCl (Cordarone) 200 mg PO Q12 [facility] Last Admin: 04/06/18 22:20 Dose: 200 mg Aspirin (Aspirin Chewable) 81 mg PO DAILY [facility] Last Admin: 04/05/18 10:29 Dose: 81 mg Dextrose (Dextrose 50% Inj) 0 ml IV STAT PRN; Protocol PRN Reason: Hypoglycemia Protocol Dextrose (Glutose 15) 0 gm PO ONCE PRN; Protocol PRN Reason: Hypoglycemia Protocol Glucagon (Glucagen Diagnostic Kit) 0 mg IM STAT PRN; Protocol PRN Reason: Hypoglycemia Protocol Meropenem 500 mg/ Sodium (Chloride) 100 mls @ 100 mls/hr IVPB Q8 [facility]ARAN PRN Reason: Protocol Last Admin: 04/07/18 05:11 Dose: 100 mls/hr Dextrose (Dextrose 5% In Water 1000 Ml) 1,000 mls @ 0 mls/hr IV .Q0M PRN; Protocol; Per Protocol PRN Reason: Hypoglycemia Protocol Heparin Sodium/Sodium Chloride (Heparin 66409 Units/250ml 1/2 Normal Saline) 25 ,000 units in 250 mls @ 15.177 mls/hr IV .[id number] PRN; Protocol; 14 UNITS/KG/HR PRN Reason: PROTOCOL Last Admin: 04/07/18 01:40 Dose: 14 units/kg/hr, 15.177 mls/hr Potassium Phosphate 15 mmole/ (Sodium Chloride) 255 mls @ 42.5 mls/hr IVPB ONCE ONE Stop: 04/07/18 13:19 Insulin Human Regular (Novolin R) 0 unit SC ACHS KARAN PRN Reason: Protocol Last Admin: 04/06/18 22:11 Dose: Not Given Midodrine (Proamatine) 5 mg PO TID [facility] Last Admin: 04/06/18 17:19 Dose: 5 mg Pantoprazole Sodium (Protonix Inj) 40 mg IVP Q12H [facility] Last Admin: 04/07/18 06:11 Dose: 40 mg Saccharomyces Boulardii (Florastor) 250 mg PO Q12 [facility] Last Admin: 04/06/18 22:21 Dose: 250 mg - Labs Labs: 04/07/18 06:14 04/07/18 06:14 PT 13.3 SECONDS (9.7-12.2) H 04/02/18 15:25 INR 1.2 04/02/18 15:25 APTT 61 SECONDS (21-34) H D 04/07/18 06:14 - Constitutional Appears: Non-toxic, No Acute Distress - Head Exam Head Exam: NORMAL INSPECTION - Eye Exam Eye Exam: Normal appearance - ENT Exam ENT Exam: Mucous Membranes Moist - Neck Exam Neck Exam: Full ROM - Respiratory Exam Respiratory Exam: Clear to Ausculation Bilateral - Cardiovascular Exam Cardiovascular Exam: Irregular Rhythm - GI/Abdominal Exam GI & Abdominal Exam: Distended, Soft, Tenderness (mild left side), Normal Bowel Sounds. absent: Guarding, Rigid, Rebound - Extremities Exam Extremities Exam: Pedal Edema. absent: Normal Inspection (Edema) - Neurological Exam Neurological Exam: Awake, Oriented x3 - Psychiatric Exam Psychiatric exam: Normal Mood - Skin Skin Exam: Dry Assessment and Plan - Assessment and Plan (Free Text) Assessment: This is a 72 year old male with PMHx of arthritis, history of colon polyps, kidney stones, renal insufficiency, glaucoma s/p partial colectomy brought by EMS because he fell out of his chair. Admitted for severe sepsis, septic shock 2/2 bilateral lower extremity cellulitis, metabolic encephalopathy 2/2 ARF ( severe metabolic acidosis and uremia), and atrial fibrillation with RVR. Right PICC line placed 04/05 Plan: 1) Severe Sepsis/Septic shock/Bacteremia Patient has chronic cellulitis over the legs /poor hygiene s/p code sepsis Dr corrales on board Blood culture shows Pasteurella multocida(Patient feeds stray cats) Wound Culture Right Leg shows Serratia marcescens and Sphingomonas paucimobilis Stool cd negative,urine culture negative chest x ray Pleral effusion Obstructive series suspicious for SBO. continue Meropenem 500mg IVP Q8H Dr Corrales 's follow up appreciated follow AMANDA to r/o vegetations Follow repeat blood culture(drawn 04/07) (CT chest/abd/pelvis w/o contrast: dependent atelectasis, mild cardiomegaly, small hiatal hernia, subtle hypodensities in gallbladder (mass vs stone), 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, 1.5 cm left renal cyst, postoperative changes from bowel surgery, moderate stool in rectosigmoid colon, few mildly dilated small bowel loops Abdomen U/S: hepatic parenchyma disease, gallstones CT head w/o contrast: chronic microvascular changes, no focal deficit Chest X Ray 04/05/18 showed bilateral pleural effusion ) 2) Bilateral Lower Cellulitis Dressing on. wound not examined. d/w ICU resident (His legs are edematous, erythematous, and weeping and with maggots upon presentation (Dakin's solution x 2 were given and the maggots are gone) No x ray evidence of osteomylitis. continue wound care and antibiotics ,seen by automotive metalsmith 3) Distended bowel loops/Abdomen Denies nausea vomiting. He was eating ok,Has distended abdomen.Had multiple small BM, Obstructive series done yesterday shows multiple dilated small bowel loops suspicious for SBO On palpation has smild tenderness. D/W Dr Myesha mendenhall. recommending CT with oral contrast after AMANDA 4) Metabolic Encephalopathy Imroving.He is alert and oriented Likely due to sepsis, uremia, severe metabolic acidosis CT head w/o contrast: chronic microvascular changes, no focal deficit 6) Acute on Chronic Renal Insufficiency Improving,he is off bicarbonate drip Emergent HD through femoral catheter placed by ICU (right groin) on 04/02/18 7) Atrial Fibrillation Cardiology (Dr. Henriquez) on board Echocardiogram 04/02/18: LA moderate dilation, mild concentric hypertrophy, EF 60 -65%, normal diastolic filling continue asprin 81mg,Amiodorone 200 mg PO Q12H and Heparin Drip for anticoagulation 8) Prior history of incarcerated hernia and small bowel obstruction Past history of colonic polyps, History of partial colectecomy 9) Anemia Secondary to CKD Stage 4 montior 10) Prophylactic care DVT prophy is on heparin Discussed with Palliative Care Nurse Gabriela . She spoke with Son Troy (who was not present at time of my exam) 04/03/18: made DNR/DNI, POLST completed and in chart (FULL TREATMENT), would like patient to be placed in [facility]termaker care and not return home (where is lives with other son). Executive Communications Manager to arrange for buttermaker care facility placement. Gabriela is going to talk to the patient today
[2018-04-07] MEDS ORDERED: Lactated Ringer's 1,000 ML IV SCH (09:15)
[2018-04-07] MEDS: (Novolin R) Insulin Human Regular 100 units/ml vial SC SCH ×4 (09:21→22:30)
--- NOTE | 2018-04-07 10:02 | CP.PCM.PN ---
Subjective - Date & Time of Evaluation Date of Evaluation: 04/07/18 Time of Evaluation: 10:00 - Subjective Subjective: Podiatry progress note for Dr. Aldridge, 72 yo male was seen at bedside for b/l leg wounds. Patient was seen resting comfortably and in no acute distress. AAO x3. Patient admits to moderate pain. Dressing is seen to be dry/clean and intact. Patient denies any overnight acute events. Patient denies any other pedal complains at this time. Patient denies f/ n/v/sob. Objective - Vital Signs/Intake and Output Vital Signs (last 24 hours): Temp Pulse Resp BP Pulse Ox 98.6 F 88 13 105/54 L 96 04/07/18 08:00 04/07/18 09:01 04/07/18 09:01 04/07/18 09:01 04/07/18 09:01 Intake and Output: 04/07/18 04/07/18 06:59 18:59 Intake Total 732.4 45.6 Balance 732.4 45.6 - Medications Medications: Current Medications Al Hydrox/Mg Hydrox/Simethicone (Maalox Plus 30 Ml) 30 ml PO Q4H PRN PRN Reason: Indigestion / Heartburn Last Admin: 04/06/18 14:50 Dose: 30 ml Amiodarone HCl (Cordarone) 200 mg PO Q12 [facility] Last Admin: 04/06/18 22:20 Dose: 200 mg Apixaban (Eliquis) 5 mg PO BID [facility] Aspirin (Aspirin Chewable) 81 mg PO DAILY [facility] Last Admin: 04/05/18 10:29 Dose: 81 mg Dextrose (Dextrose 50% Inj) 0 ml IV STAT PRN; Protocol PRN Reason: Hypoglycemia Protocol Dextrose (Glutose 15) 0 gm PO ONCE PRN; Protocol PRN Reason: Hypoglycemia Protocol Glucagon (Glucagen Diagnostic Kit) 0 mg IM STAT PRN; Protocol PRN Reason: Hypoglycemia Protocol Meropenem 500 mg/ Sodium (Chloride) 100 mls @ 100 mls/hr IVPB Q8 [facility]AN PRN Reason: Protocol Last Admin: 04/07/18 05:11 Dose: 100 mls/hr Dextrose (Dextrose 5% In Water 1000 Ml) 1,000 mls @ 0 mls/hr IV .Q0M PRN; Protocol; Per Protocol PRN Reason: Hypoglycemia Protocol Heparin Sodium/Sodium Chloride (Heparin 28628 Units/250ml 1/2 Normal Saline) 25 ,000 units in 250 mls @ 15.177 mls/hr IV .[id number] PRN; Protocol; 14 UNITS/KG/HR PRN Reason: PROTOCOL Last Admin: 04/07/18 01:40 Dose: 14 units/kg/hr, 15.177 mls/hr Potassium Phosphate 15 mmole/ (Sodium Chloride) 255 mls @ 42.5 mls/hr IVPB ONCE ONE Stop: 04/07/18 13:19 Last Admin: 04/07/18 09:42 Dose: 42.5 mls/hr Lactated Ringer's (Lactated Ringer's) 1,000 mls @ 75 mls/hr IV .[id number] [facility] Stop: 04/07/18 22:34 Last Admin: 04/07/18 09:27 Dose: 75 mls/hr Insulin Human Regular (Novolin R) 0 unit SC ACHS [facility]ARAN PRN Reason: Protocol Last Admin: 04/07/18 09:21 Dose: Not Given Midodrine (Proamatine) 5 mg PO TID [facility] Last Admin: 04/06/18 17:19 Dose: 5 mg Pantoprazole Sodium (Protonix Ec Tab) 40 mg PO DAILY [facility] Saccharomyces Boulardii (Florastor) 250 mg PO Q12 [facility] Last Admin: 04/06/18 22:21 Dose: 250 mg - Labs Labs: 04/07/18 06:14 04/07/18 06:14 PT 13.3 SECONDS (9.7-12.2) H 04/02/18 15:25 INR 1.2 04/02/18 15:25 APTT 61 SECONDS (21-34) H D 04/07/18 06:14 - Constitutional Appears: Well, Non-toxic, No Acute Distress - Head Exam Head Exam: ATRAUMATIC, NORMOCEPHALIC - Extremities Exam Additional comments: B/L lower extremity exam: Derm: multiple ulcerations noted circumferentially around the leg b/l, erythema noted from the ankle joint to the tibial tuberosity b/l. Left: ulceration noted dorsal distal aspect of the leg, irregular border, measuring approximately 5 cm x4cm x.3 cm, no probe to bone, 100% granular base, no malodor, no purulence, active sero-sanguineous drainage noted, no tunneling or tracking noted, periwound erythema, no clinical signs of infection, Multiple small ulcerations on lateral aspect of the distal leg, and posterior aspect of distal leg, regular border, 100% fibrotic base, no probe to bone, serous drainage noted, no purulence, no tunneling or tracking noted, periwound erythema no clinical signs of infection. Right: Ulceration noted at the distal aspect of dorsal leg, irregular border measuring approximately 6 cm x 5 cm x .3, no probe to bone, fibrogranular base, no malodor noted, active sanguineous drainage noted, no tunneling or tracking noted, dion wound erythema, no clinical signs of infection noted. Vascular: Non-palpable DP and PT noted secondary to pitting edema, +3 pitting edema noted, CFT <3 secs noted to all digits, no pedal hair noted Neuro: protective sensation grossly diminished - Psychiatric Exam Psychiatric exam: Normal Affect, Normal Mood - Skin Skin Exam: Normal Color Assessment and Plan - Assessment and Plan (Free Text) Assessment: 72 yo male seen by bedside for multiple, chronic ulcerations to bilateral legs. Plan: Patient was seen and evaluated Patients plan discussed in detail with the attending, Dr. Aldridge. Charts, labs and vitals reviewed. Afebrile WBC 17.7 Bilateral legs dressed with xeroform, gauze, ABD and kerlix Continue local woundcare Keep prevlone boots on at all times Podiatry will follow patient while in house.
[2018-04-07] MEDS ORDERED: Iohexol 240 (50 ml) PO ONE ×2 (10:30→13:00)
[2018-04-07] MEDS ORDERED: Lidocaine 4% (Laryng-O-Jet) Kit MM ONE (10:39)
[2018-04-07] MEDS ORDERED: Midazolam 2 MG/2 ML VIAL ONE (11:12)
[2018-04-07] MEDS ORDERED: Propofol 10 mg/ml Inj (20 ML) ONE (11:12)
[2018-04-07] MEDS ORDERED: Etomidate 20 mg/10ml Inj IV ONE (11:14)
[2018-04-07] MEDS ORDERED: Esmolol 100 mg/10ml Inj IV ONE (11:14)
[2018-04-07] MEDS ORDERED: ePHEDrine 50 mg/ml Inj ONE (11:14)
[2018-04-07] MEDS ORDERED: Phenylephrine 10 mg/ml Inj ONE (11:14)
--- NOTE | 2018-04-07 12:27 | CP.PCM.PN ---
Subjective - Date & Time of Evaluation Date of Evaluation: 04/07/18 Time of Evaluation: 12:24 - Subjective Subjective: s/p AMANDA- negative RB=[id number] feels better off pressors now TERRENCE resolving- creat decreased to 1.7 remains on IV ABs for bacteremia Objective - Vital Signs/Intake and Output Vital Signs (last 24 hours): Temp Pulse Resp BP Pulse Ox 97.7 F 79 15 108/55 L 100 04/07/18 12:00 04/07/18 12:00 04/07/18 12:00 04/07/18 11:58 04/07/18 12:00 Intake and Output: 04/07/18 04/07/18 06:59 18:59 Intake Total 732.4 277.2 Balance 732.4 277.2 - Medications Medications: Current Medications Al Hydrox/Mg Hydrox/Simethicone (Maalox Plus 30 Ml) 30 ml PO Q4H PRN PRN Reason: Indigestion / Heartburn Last Admin: 04/06/18 14:50 Dose: 30 ml Amiodarone HCl (Cordarone) 200 mg PO Q12 [facility] Last Admin: 04/06/18 22:20 Dose: 200 mg Apixaban (Eliquis) 5 mg PO BID [facility] Aspirin (Aspirin Chewable) 81 mg PO DAILY [facility] Last Admin: 04/05/18 10:29 Dose: 81 mg Dextrose (Dextrose 50% Inj) 0 ml IV STAT PRN; Protocol PRN Reason: Hypoglycemia Protocol Dextrose (Glutose 15) 0 gm PO ONCE PRN; Protocol PRN Reason: Hypoglycemia Protocol Glucagon (Glucagen Diagnostic Kit) 0 mg IM STAT PRN; Protocol PRN Reason: Hypoglycemia Protocol Meropenem 500 mg/ Sodium (Chloride) 100 mls @ 100 mls/hr IVPB Q8 [facility] PRN Reason: Protocol Last Admin: 04/07/18 05:11 Dose: 100 mls/hr Dextrose (Dextrose 5% In Water 1000 Ml) 1,000 mls @ 0 mls/hr IV .Q0M PRN; Protocol; Per Protocol PRN Reason: Hypoglycemia Protocol Heparin Sodium/Sodium Chloride (Heparin 74513 Units/250ml 1/2 Normal Saline) 25 ,000 units in 250 mls @ 15.177 mls/hr IV .[id number] PRN; Protocol; 14 UNITS/KG/HR PRN Reason: PROTOCOL Last Admin: 04/07/18 01:40 Dose: 14 units/kg/hr, 15.177 mls/hr Potassium Phosphate 15 mmole/ (Sodium Chloride) 255 mls @ 42.5 mls/hr IVPB ONCE ONE Stop: 04/07/18 13:19 Last Admin: 04/07/18 09:42 Dose: 42.5 mls/hr Lactated Ringer's (Lactated Ringer's) 1,000 mls @ 75 mls/hr IV .[id number] [facility] Stop: 04/07/18 22:34 Last Admin: 04/07/18 09:27 Dose: 75 mls/hr Insulin Human Regular (Novolin R) 0 unit SC ACHS [facility] PRN Reason: Protocol Last Admin: 04/07/18 09:21 Dose: Not Given Midodrine (Proamatine) 5 mg PO TID [facility] Last Admin: 04/06/18 17:19 Dose: 5 mg Pantoprazole Sodium (Protonix Ec Tab) 40 mg PO DAILY [facility] Saccharomyces Boulardii (Florastor) 250 mg PO Q12 [facility] Last Admin: 04/06/18 22:21 Dose: 250 mg - Labs Labs: 04/07/18 06:14 04/07/18 06:14 PT 13.3 SECONDS (9.7-12.2) H 04/02/18 15:25 INR 1.2 04/02/18 15:25 APTT 61 SECONDS (21-34) H D 04/07/18 06:14 - Constitutional Appears: No Acute Distress, Chronically Ill - Head Exam Head Exam: ATRAUMATIC, NORMAL INSPECTION - Eye Exam Eye Exam: EOMI, Normal appearance - Neck Exam Neck Exam: Normal Inspection. absent: Tenderness - Respiratory Exam Respiratory Exam: Clear to Ausculation Bilateral, NORMAL BREATHING PATTERN - Cardiovascular Exam Cardiovascular Exam: REGULAR RHYTHM, +S1 - GI/Abdominal Exam GI & Abdominal Exam: Soft. absent: Tenderness - Extremities Exam Extremities Exam: Normal Inspection. absent: Tenderness - Neurological Exam Neurological Exam: Alert, CN II-XII Intact - Skin Skin Exam: Rash, Warm Assessment and Plan (1) TERRENCE (acute kidney injury) Status: Acute (2) Sepsis associated hypotension Status: Acute (3) Cellulitis of right leg Status: Acute (4) Chronic kidney disease, stage III (moderate) Status: Acute (5) Metabolic acidemia Status: Acute - Assessment and Plan (Free Text) Plan: K phos repletion monitor lytes and renal function same IV ABs
[2018-04-07] MEDS: Saccharomyces Boulardi 250 mg Cap PO SCH ×2 (13:16→22:10)
[2018-04-07] MEDS: Pantoprazole 40 mg EC Tab PO SCH (13:18)
--- NOTE | 2018-04-07 13:41 | CP.PCM.PN ---
Subjective - Date & Time of Evaluation Date of Evaluation: 04/07/18 Time of Evaluation: 13:37 - Subjective Subjective: Patient is alert, denies pain, states is hungry. Patient is NPO for pending CT. Objective - Vital Signs/Intake and Output Vital Signs (last 24 hours): Temp Pulse Resp BP Pulse Ox 97.7 F 86 17 99/48 L 100 04/07/18 12:00 04/07/18 13:00 04/07/18 13:00 04/07/18 12:58 04/07/18 13:00 Intake and Output: 04/07/18 04/07/18 06:59 18:59 Intake Total 732.4 354.4 Balance 732.4 354.4 - Medications Medications: Current Medications Al Hydrox/Mg Hydrox/Simethicone (Maalox Plus 30 Ml) 30 ml PO Q4H PRN PRN Reason: Indigestion / Heartburn Last Admin: 04/06/18 14:50 Dose: 30 ml Amiodarone HCl (Cordarone) 200 mg PO Q12 [facility] Last Admin: 04/07/18 13:13 Dose: 200 mg Apixaban (Eliquis) 5 mg PO BID [facility] Aspirin (Aspirin Chewable) 81 mg PO DAILY [facility] Last Admin: 04/05/18 10:29 Dose: 81 mg Dextrose (Dextrose 50% Inj) 0 ml IV STAT PRN; Protocol PRN Reason: Hypoglycemia Protocol Dextrose (Glutose 15) 0 gm PO ONCE PRN; Protocol PRN Reason: Hypoglycemia Protocol Glucagon (Glucagen Diagnostic Kit) 0 mg IM STAT PRN; Protocol PRN Reason: Hypoglycemia Protocol Meropenem 500 mg/ Sodium (Chloride) 100 mls @ 100 mls/hr IVPB Q8 [facility] PRN Reason: Protocol Last Admin: 04/07/18 13:19 Dose: 100 mls/hr Dextrose (Dextrose 5% In Water 1000 Ml) 1,000 mls @ 0 mls/hr IV .Q0M PRN; Protocol; Per Protocol PRN Reason: Hypoglycemia Protocol Heparin Sodium/Sodium Chloride (Heparin 18288 Units/250ml 1/2 Normal Saline) 25 ,000 units in 250 mls @ 15.177 mls/hr IV .[id number] PRN; Protocol; 14 UNITS/KG/HR PRN Reason: PROTOCOL Last Admin: 04/07/18 01:40 Dose: 14 units/kg/hr, 15.177 mls/hr Lactated Ringer's (Lactated Ringer's) 1,000 mls @ 75 mls/hr IV .[id number] [facility] Stop: 04/07/18 22:34 Last Admin: 04/07/18 09:27 Dose: 75 mls/hr Insulin Human Regular (Novolin R) 0 unit SC ACHS [facility] PRN Reason: Protocol Last Admin: 04/07/18 13:16 Dose: Not Given Midodrine (Proamatine) 5 mg PO TID [facility] Last Admin: 04/07/18 13:17 Dose: 5 mg Pantoprazole Sodium (Protonix Ec Tab) 40 mg PO DAILY [facility] Last Admin: 04/07/18 13:18 Dose: 40 mg Saccharomyces Boulardii (Florastor) 250 mg PO Q12 [facility] Last Admin: 04/07/18 13:16 Dose: 250 mg - Labs Labs: 04/07/18 06:14 04/07/18 06:14 PT 13.3 SECONDS (9.7-12.2) H 04/02/18 15:25 INR 1.2 04/02/18 15:25 APTT 61 SECONDS (21-34) H D 04/07/18 06:14 - Constitutional Appears: Chronically Ill - Head Exam Head Exam: ATRAUMATIC, NORMAL INSPECTION, NORMOCEPHALIC - Eye Exam Eye Exam: EOMI, Normal appearance, PERRL Pupil Exam: NORMAL ACCOMODATION, PERRL - ENT Exam ENT Exam: Mucous Membranes Moist, Normal Exam - Neck Exam Neck Exam: Full ROM, Normal Inspection - Respiratory Exam Respiratory Exam: Decreased Breath Sounds - Cardiovascular Exam Cardiovascular Exam: Tachycardia - GI/Abdominal Exam GI & Abdominal Exam: Soft, Diminished Bowel Sounds - Rectal Exam Rectal Exam: Deferred - Exam Additional comments: Incontinent, Wall at bed side - Extremities Exam Additional comments: severe wounds to both LEs - Neurological Exam Neurological Exam: Alert, Oriented x3 Neuro motor strength exam: Left Upper Extremity: 2/1, Right Upper Extremity: 2/1 , Left Lower Extremity: 2/1, Right Lower Extremity: 2/1 - Psychiatric Exam Psychiatric exam: Normal Affect, Normal Mood - Skin Skin Exam: Normal Color, Warm Assessment and Plan - Assessment and Plan (Free Text) Assessment: Patient examined in bed ,alert, oriented in no acute distress. Patient states having no recollection for about 5 days, of where he was and how he came to the hospital. There is edema to upper extremities with echymosis. LEs wounds are covered with dressings. Patient states, had no understanding of how severly infected his legs were while at home. Abdomen is softly distended. Patient reports mild rueda. Abd. X Ray suggestive of mechanical SBO. Patient is being prepared for CT abdomen with PO contrast. Patient reports frequent , loose BMs. Stool for occult blood, positive. Breathing is normal, good air entry. Tachycardia. BP 99/48, on Midodrine PO. IV antibiotics on board for legs infection. I reviewed my goals of care discussion I had with his son Troy. I made patient aware of his son Troy and daughter afsaneh having concern about his lack of care at home and are suggesting NH for retirement placement. I also reviewed POLST signed by Troy calling for DNR/DNI. Patient agreed with it all. he said, he gave full permission to his son Rubin and daughter Afsaneh to advocate for him. Impression * Chronically ill male recovering post septic shock and severe metabolic encephalopathy * Infected wounds to LEs * Limited mobility * SBO * Patient agrees with goals of care proposed by his son Troy and daughter Afsaneh Suggestions * Continue IV antibiotics fr wounds of LEs * Assist with ADLs * DNR/DNI, POLST on chart * Contact Troy, the older son ,when needed, phone number on POLST
--- NOTE | 2018-04-07 17:29 | CP.PCM.PN ---
Subjective - Date & Time of Evaluation Date of Evaluation: 04/07/18 Time of Evaluation: 10:00 - Subjective Subjective: AMANDA negative off pressors repeat blood cultures so far negative will need imaging of feet cont iv antibiotics min 14 days for bacteremia/ sepsis Objective - Vital Signs/Intake and Output Vital Signs (last 24 hours): Temp Pulse Resp BP Pulse Ox 97.6 F 87 14 86/47 L 99 04/07/18 16:00 04/07/18 15:30 04/07/18 15:30 04/07/18 15:00 04/07/18 15:30 Intake and Output: 04/07/18 04/07/18 06:59 18:59 Intake Total 732.4 1900.0 Balance 732.4 1900.0 - Medications Medications: Current Medications Al Hydrox/Mg Hydrox/Simethicone (Maalox Plus 30 Ml) 30 ml PO Q4H PRN PRN Reason: Indigestion / Heartburn Last Admin: 04/06/18 14:50 Dose: 30 ml Amiodarone HCl (Cordarone) 200 mg PO Q12 [facility] Last Admin: 04/07/18 13:13 Dose: 200 mg Apixaban (Eliquis) 5 mg PO BID [facility] Aspirin (Aspirin Chewable) 81 mg PO DAILY [facility] Last Admin: 04/07/18 16:52 Dose: 81 mg Dextrose (Dextrose 50% Inj) 0 ml IV STAT PRN; Protocol PRN Reason: Hypoglycemia Protocol Dextrose (Glutose 15) 0 gm PO ONCE PRN; Protocol PRN Reason: Hypoglycemia Protocol Glucagon (Glucagen Diagnostic Kit) 0 mg IM STAT PRN; Protocol PRN Reason: Hypoglycemia Protocol Meropenem 500 mg/ Sodium (Chloride) 100 mls @ 100 mls/hr IVPB Q8 [facility] PRN Reason: Protocol Last Admin: 04/07/18 13:19 Dose: 100 mls/hr Dextrose (Dextrose 5% In Water 1000 Ml) 1,000 mls @ 0 mls/hr IV .Q0M PRN; Protocol; Per Protocol PRN Reason: Hypoglycemia Protocol Heparin Sodium/Sodium Chloride (Heparin 88018 Units/250ml 1/2 Normal Saline) 25 ,000 units in 250 mls @ 15.177 mls/hr IV .[id number] PRN; Protocol; 14 UNITS/KG/HR PRN Reason: PROTOCOL Last Admin: 04/07/18 16:54 Dose: 14 units/kg/hr, 15.177 mls/hr Lactated Ringer's (Lactated Ringer's) 1,000 mls @ 75 mls/hr IV .[id number] [facility] Stop: 04/07/18 22:34 Last Admin: 04/07/18 09:27 Dose: 75 mls/hr Insulin Human Regular (Novolin R) 0 unit SC ACHS [facility] PRN Reason: Protocol Last Admin: 04/07/18 16:19 Dose: Not Given Midodrine (Proamatine) 5 mg PO TID [facility] Last Admin: 04/07/18 17:00 Dose: 5 mg Pantoprazole Sodium (Protonix Ec Tab) 40 mg PO DAILY [facility] Last Admin: 04/07/18 13:18 Dose: 40 mg Saccharomyces Boulardii (Florastor) 250 mg PO Q12 [facility] Last Admin: 04/07/18 13:16 Dose: 250 mg - Labs Labs: 04/07/18 06:14 04/07/18 06:14 PT 13.3 SECONDS (9.7-12.2) H 04/02/18 15:25 INR 1.2 04/02/18 15:25 APTT 61 SECONDS (21-34) H D 04/07/18 06:14 - Constitutional Appears: Non-toxic, Chronically Ill - Head Exam Head Exam: NORMOCEPHALIC - Eye Exam Eye Exam: absent: Scleral icterus - ENT Exam ENT Exam: Mucous Membranes Dry - Neck Exam Neck Exam: absent: Lymphadenopathy - Respiratory Exam Respiratory Exam: Decreased Breath Sounds - Cardiovascular Exam Cardiovascular Exam: REGULAR RHYTHM, +S1, +S2 - GI/Abdominal Exam GI & Abdominal Exam: Soft, Diminished Bowel Sounds. 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
--- NOTE | 2018-04-07 22:07 | CP.PCM.PN ---
Subjective - Date & Time of Evaluation Date of Evaluation: 04/07/18 Time of Evaluation: 13:05 - Subjective Subjective: patient s/p AMANDA Normal EF No endocarditis Full report to follow Objective - Vital Signs/Intake and Output Vital Signs (last 24 hours): Temp Pulse Resp BP Pulse Ox 97.6 F 92 H 18 114/57 L 97 04/07/18 16:00 04/07/18 20:00 04/07/18 20:00 04/07/18 20:00 04/07/18 20:00 Intake and Output: 04/07/18 04/08/18 18:59 06:59 Intake Total 2440.4 180.4 Balance 2440.4 180.4 - Medications Medications: Current Medications Al Hydrox/Mg Hydrox/Simethicone (Maalox Plus 30 Ml) 30 ml PO Q4H PRN PRN Reason: Indigestion / Heartburn Last Admin: 04/06/18 14:50 Dose: 30 ml Amiodarone HCl (Cordarone) 200 mg PO Q12 [facility] Last Admin: 04/07/18 13:13 Dose: 200 mg Apixaban (Eliquis) 5 mg PO BID [facility] Aspirin (Aspirin Chewable) 81 mg PO DAILY [facility] Last Admin: 04/07/18 16:52 Dose: 81 mg Dextrose (Dextrose 50% Inj) 0 ml IV STAT PRN; Protocol PRN Reason: Hypoglycemia Protocol Dextrose (Glutose 15) 0 gm PO ONCE PRN; Protocol PRN Reason: Hypoglycemia Protocol Glucagon (Glucagen Diagnostic Kit) 0 mg IM STAT PRN; Protocol PRN Reason: Hypoglycemia Protocol Meropenem 500 mg/ Sodium (Chloride) 100 mls @ 100 mls/hr IVPB Q8 [facility] PRN Reason: Protocol Last Admin: 04/07/18 13:19 Dose: 100 mls/hr Dextrose (Dextrose 5% In Water 1000 Ml) 1,000 mls @ 0 mls/hr IV .Q0M PRN; Protocol; Per Protocol PRN Reason: Hypoglycemia Protocol Heparin Sodium/Sodium Chloride (Heparin 32491 Units/250ml 1/2 Normal Saline) 25 ,000 units in 250 mls @ 15.177 mls/hr IV .[id number] PRN; Protocol; 14 UNITS/KG/HR PRN Reason: PROTOCOL Last Admin: 04/07/18 16:54 Dose: 14 units/kg/hr, 15.177 mls/hr Lactated Ringer's (Lactated Ringer's) 1,000 mls @ 75 mls/hr IV .[id number] [facility] Stop: 04/07/18 22:34 Last Admin: 04/07/18 09:27 Dose: 75 mls/hr Insulin Human Regular (Novolin R) 0 unit SC ACHS [facility] PRN Reason: Protocol Last Admin: 04/07/18 16:19 Dose: Not Given Midodrine (Proamatine) 5 mg PO TID [facility] Last Admin: 04/07/18 17:00 Dose: 5 mg Pantoprazole Sodium (Protonix Ec Tab) 40 mg PO DAILY [facility] Last Admin: 04/07/18 13:18 Dose: 40 mg Saccharomyces Boulardii (Florastor) 250 mg PO Q12 [facility] Last Admin: 04/07/18 13:16 Dose: 250 mg - Labs Labs: 04/07/18 06:14 04/07/18 06:14 PT 13.3 SECONDS (9.7-12.2) H 04/02/18 15:25 INR 1.2 04/02/18 15:25 APTT 61 SECONDS (21-34) H D 04/07/18 06:14
[2018-04-08] MEDS: Meropenem 500 MG in Sodium Chloride 0.9% 100 ML IVPB SCH ×3 (05:39→21:41)
[2018-04-08 06:49] LABS: BASO % 0.1 % (0.0-2.0); EOS # 0.2 K/uL (0.0-0.7); EOS % 1.6 % (0.0-4.0); HEMOGLOBIN 8.6 g/dL (12.0-18.0); LYMPH # 0.7 K/uL (1.0-4.3); LYMPH % 5.4 % (20.0-40.0); MEAN CELL VOLUME 95.1 fL (80.0-94.0); MEAN CORPUSCULAR HEMOGLOBIN 31.2 pg (27.0-31.0); MEAN CORPUSCULAR HGB CONC 32.7 g/dL (33.0-37.0); MEAN PLATELET VOLUME 9.3 fL (7.2-11.7); MONO # 0.9 K/uL (0.0-0.8); MONO % 6.9 % (0.0-10.0); NEUT # 11.3 K/uL (1.8-7.0); PLATELET COUNT 114 K/uL (130-400); RBC 2.78 Mil/uL (4.40-5.90); RED CELL DISTRIBUTION WIDTH 14.6 % (11.5-14.5); WHITE BLOOD COUNT 13.1 K/uL (4.8-10.8)
[2018-04-08 07:21] LABS: ALBUMIN 2.3 g/dL (3.5-5.0); CALCIUM 7.5 mg/dl (8.6-10.4)
[2018-04-08] MEDS: (Novolin R) Insulin Human Regular 100 units/ml vial SC SCH ×4 (07:43→21:36)
[2018-04-08 08:47] LABS: BANDS 3 % (0-2); EOSINOPHIL 1 % (0-4); LYMPHOCYTE 3 % (20-40); METAMYELOCYTE 2 % (0-0); MONOCYTE 11 % (0-10); MYELOCYTE 2 % (0-0); NEUTROPHIL 77 % (50-75); PLATELET ESTIMATE SLIGHTLY DECREASED (NORMAL); REACTIVE LYMPHOCYTES 1 % (0-0); TOTAL CELLS COUNTED 100
[2018-04-08 08:48] LABS: ANISOCYTOSIS SLIGHT
[2018-04-08 08:50] LABS: TOXIC GRANULATION PRESENT
[2018-04-08 08:55] LABS: HYPOCHROMIC SLIGHT; LARGE PLATELETS PRESENT; POLYCHROMIC SLIGHT
--- NOTE | 2018-04-08 09:43 | CP.PCM.PN ---
Subjective - Date & Time of Evaluation Date of Evaluation: 04/08/18 Time of Evaluation: 09:41 - Subjective Subjective: chronically ill downgraded appetite fair no respiratory complaints no sob notes frequent diarrhea borges in no rash no pruritis Objective - Vital Signs/Intake and Output Vital Signs (last 24 hours): Temp Pulse Resp BP Pulse Ox 98.1 F 85 20 104/65 94 L 04/08/18 08:27 04/08/18 08:27 04/08/18 08:27 04/08/18 08:27 04/08/18 08:27 Intake and Output: 04/08/18 04/08/18 06:59 18:59 Intake Total 1076.6 Output Total 2 Balance 1074.6 - Medications Medications: Current Medications Al Hydrox/Mg Hydrox/Simethicone (Maalox Plus 30 Ml) 30 ml PO Q4H PRN PRN Reason: Indigestion / Heartburn Last Admin: 04/06/18 14:50 Dose: 30 ml Amiodarone HCl (Cordarone) 200 mg PO Q12 [facility] Last Admin: 04/07/18 22:10 Dose: 200 mg Apixaban (Eliquis) 5 mg PO BID [facility] Aspirin (Aspirin Chewable) 81 mg PO DAILY [facility] Last Admin: 04/07/18 16:52 Dose: 81 mg Dextrose (Dextrose 50% Inj) 0 ml IV STAT PRN; Protocol PRN Reason: Hypoglycemia Protocol Dextrose (Glutose 15) 0 gm PO ONCE PRN; Protocol PRN Reason: Hypoglycemia Protocol Glucagon (Glucagen Diagnostic Kit) 0 mg IM STAT PRN; Protocol PRN Reason: Hypoglycemia Protocol Meropenem 500 mg/ Sodium (Chloride) 100 mls @ 100 mls/hr IVPB Q8 [facility] PRN Reason: Protocol Last Admin: 04/08/18 05:39 Dose: 100 mls/hr Dextrose (Dextrose 5% In Water 1000 Ml) 1,000 mls @ 0 mls/hr IV .Q0M PRN; Protocol; Per Protocol PRN Reason: Hypoglycemia Protocol Heparin Sodium/Sodium Chloride (Heparin 15995 Units/250ml 1/2 Normal Saline) 25 ,000 units in 250 mls @ 15.177 mls/hr IV .[id number] PRN; Protocol; 14 UNITS/KG/HR PRN Reason: PROTOCOL Last Admin: 04/07/18 16:54 Dose: 14 units/kg/hr, 15.177 mls/hr Insulin Human Regular (Novolin R) 0 unit SC ACHS [facility] PRN Reason: Protocol Last Admin: 04/08/18 07:43 Dose: 1 units Midodrine (Proamatine) 5 mg PO TID [facility] Last Admin: 04/07/18 17:00 Dose: 5 mg Pantoprazole Sodium (Protonix Ec Tab) 40 mg PO DAILY [facility] Last Admin: 04/07/18 13:18 Dose: 40 mg Saccharomyces Boulardii (Florastor) 250 mg PO Q12 [facility] Last Admin: 04/07/18 22:10 Dose: 250 mg - Labs Labs: 04/08/18 06:36 04/08/18 06:36 PT 13.3 SECONDS (9.7-12.2) H 04/02/18 15:25 INR 1.2 04/02/18 15:25 APTT 61 SECONDS (21-34) H D 04/07/18 06:14 - Constitutional Appears: Chronically Ill - Head Exam Head Exam: ATRAUMATIC, NORMAL INSPECTION - Eye Exam Eye Exam: EOMI - ENT Exam ENT Exam: Mucous Membranes Moist - Neck Exam Neck Exam: Full ROM, Normal Inspection - Respiratory Exam Respiratory Exam: Clear to Ausculation Bilateral. absent: Accessory Muscle Use - GI/Abdominal Exam GI & Abdominal Exam: Soft. absent: Tenderness - Extremities Exam Additional comments: legs bandaged, right leg with erythema Assessment and Plan - Assessment and Plan (Free Text) Assessment: jah, resolving bacteremia cellulitis diarrhea replete electrolytes stool for c diff
[2018-04-08] MEDS: Saccharomyces Boulardi 250 mg Cap PO SCH ×2 (10:09→21:43)
[2018-04-08] MEDS: Pantoprazole 40 mg EC Tab PO SCH (10:09)
--- NOTE | 2018-04-08 10:43 | CP.PCM.PN ---
Subjective - Date & Time of Evaluation Date of Evaluation: 04/08/18 Time of Evaluation: 10:38 - Subjective Subjective: Podiatry Progress Note - Dr. Sheldon 72 y/o male was seen at bedside this morning for bilateral leg wounds. Pt AAOx3 in NAD, resting comfortably in bed at time of visit. Patient admits to mild-moderate pain, worsened with dressing changes by touching the leg ulcers. Dressing is seen to be dry/clean and intact. Patient denies any overnight acute events. Patient denies F/C/N/V/CP/SOB Objective - Vital Signs/Intake and Output Vital Signs (last 24 hours): Temp Pulse Resp BP Pulse Ox 98.1 F 85 20 104/65 94 L 04/08/18 08:27 04/08/18 08:27 04/08/18 08:27 04/08/18 08:27 04/08/18 08:27 Intake and Output: 04/08/18 04/08/18 06:59 18:59 Intake Total 1076.6 Output Total 2 Balance 1074.6 - Medications Medications: Current Medications Al Hydrox/Mg Hydrox/Simethicone (Maalox Plus 30 Ml) 30 ml PO Q4H PRN PRN Reason: Indigestion / Heartburn Last Admin: 04/06/18 14:50 Dose: 30 ml Amiodarone HCl (Cordarone) 200 mg PO Q12 [facility] Last Admin: 04/08/18 10:09 Dose: 200 mg Apixaban (Eliquis) 5 mg PO BID [facility] Last Admin: 04/08/18 10:13 Dose: 5 mg Aspirin (Aspirin Chewable) 81 mg PO DAILY [facility] Last Admin: 04/08/18 10:09 Dose: 81 mg Dextrose (Dextrose 50% Inj) 0 ml IV STAT PRN; Protocol PRN Reason: Hypoglycemia Protocol Dextrose (Glutose 15) 0 gm PO ONCE PRN; Protocol PRN Reason: Hypoglycemia Protocol Glucagon (Glucagen Diagnostic Kit) 0 mg IM STAT PRN; Protocol PRN Reason: Hypoglycemia Protocol Meropenem 500 mg/ Sodium (Chloride) 100 mls @ 100 mls/hr IVPB Q8 [facility] PRN Reason: Protocol Last Admin: 04/08/18 05:39 Dose: 100 mls/hr Dextrose (Dextrose 5% In Water 1000 Ml) 1,000 mls @ 0 mls/hr IV .Q0M PRN; Protocol; Per Protocol PRN Reason: Hypoglycemia Protocol Heparin Sodium/Sodium Chloride (Heparin 56560 Units/250ml 1/2 Normal Saline) 25 ,000 units in 250 mls @ 15.177 mls/hr IV .[id number] PRN; Protocol; 14 UNITS/KG/HR PRN Reason: PROTOCOL Last Admin: 04/07/18 16:54 Dose: 14 units/kg/hr, 15.177 mls/hr Insulin Human Regular (Novolin R) 0 unit SC ACHS [facility] PRN Reason: Protocol Last Admin: 04/08/18 07:43 Dose: 1 units Midodrine (Proamatine) 5 mg PO TID [facility] Last Admin: 04/08/18 10:09 Dose: 5 mg Pantoprazole Sodium (Protonix Ec Tab) 40 mg PO DAILY [facility] Last Admin: 04/08/18 10:09 Dose: 40 mg Saccharomyces Boulardii (Florastor) 250 mg PO Q12 [facility] Last Admin: 04/08/18 10:09 Dose: 250 mg - Labs Labs: 04/08/18 06:36 04/08/18 06:36 PT 13.3 SECONDS (9.7-12.2) H 04/02/18 15:25 INR 1.2 04/02/18 15:25 APTT 61 SECONDS (21-34) H D 04/07/18 06:14 - Constitutional Appears: Well, Non-toxic, No Acute Distress - Extremities Exam Additional comments: Lower extremity focused exam: Derm: Multiple ulcerations noted circumferentially around the leg B/L. Erythema noted from the ankle joint to the tibial tuberosity B/L Left: Ulceration noted to the dorsal distal aspect of the anterior leg with irregular wound border, measuring approximately 5 cm x 4 cm x 0.3 cm, no probe to bone, 100% granular base, no malodor, no purulence, active sero-sanguineous drainage noted, no tunneling or tracking noted, periwound erythema, no clinical signs of infection. Multiple small ulcerations on lateral and posterior aspects of distal leg with regular borders, 100% fibrotic base, no probe to bone, serous drainage noted, no purulence, no tunneling or tracking noted, periwound erythema no clinical signs of infection. Right: Ulceration noted at the distal aspect of dorsal leg, irregular border measuring approximately 6 cm x 5 cm x .3, no probe to bone, fibrogranular base, no malodor noted, active sanguineous drainage noted, no tunneling or tracking noted, dion wound erythema, no clinical signs of infection noted. Vascular: Non-palpable DP and PT pulses secondary to pitting edema. +3 pitting edema to bilateral LE noted. 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 Plan: Patient was seen and evaluated at bedside Discussed plan in detail with Dr. Aldridge Bilateral leg ulcers cleaned with saline and dressed with xeroform, gauze, ABD pads and kerlix Podiatry to continue local wound care to leg ulcerations No surgical intervention planned at this time Multipodus boots to be kept on at all times in bed Podiatry will follow patient while in house
--- NOTE | 2018-04-08 14:48 | CP.PCM.PN ---
<UnaRachel L. - Last Filed: 04/08/18 14:49> Subjective - Date & Time of Evaluation Date of Evaluation: 04/08/18 Time of Evaluation: 07:00 - Subjective Subjective: PGY2- Progress Note Patient seen and examined at bedside and in no acute distress. Patient says his legs are hurting, but no more than usual. Patient admits to multiple episodes of diarrhea. Patient denies any chest pain, shortness of breath, abdominal pain , nausea, or vomiting. Objective - Vital Signs/Intake and Output Vital Signs (last 24 hours): Temp Pulse Resp BP Pulse Ox 98.1 F 85 20 104/65 94 L 04/08/18 08:27 04/08/18 08:27 04/08/18 08:27 04/08/18 08:27 04/08/18 08:27 Intake and Output: 04/08/18 04/08/18 06:59 18:59 Intake Total 1076.6 Output Total 2 Balance 1074.6 - Medications Medications: Current Medications Al Hydrox/Mg Hydrox/Simethicone (Maalox Plus 30 Ml) 30 ml PO Q4H PRN PRN Reason: Indigestion / Heartburn Last Admin: 04/06/18 14:50 Dose: 30 ml Amiodarone HCl (Cordarone) 200 mg PO Q12 [facility] Last Admin: 04/08/18 10:09 Dose: 200 mg Apixaban (Eliquis) 5 mg PO BID [facility] Last Admin: 04/08/18 10:13 Dose: 5 mg Aspirin (Aspirin Chewable) 81 mg PO DAILY [facility] Last Admin: 04/08/18 10:09 Dose: 81 mg Dextrose (Dextrose 50% Inj) 0 ml IV STAT PRN; Protocol PRN Reason: Hypoglycemia Protocol Dextrose (Glutose 15) 0 gm PO ONCE PRN; Protocol PRN Reason: Hypoglycemia Protocol Glucagon (Glucagen Diagnostic Kit) 0 mg IM STAT PRN; Protocol PRN Reason: Hypoglycemia Protocol Meropenem 500 mg/ Sodium (Chloride) 100 mls @ 100 mls/hr IVPB Q8 [facility] PRN Reason: Protocol Last Admin: 04/08/18 13:35 Dose: 100 mls/hr Dextrose (Dextrose 5% In Water 1000 Ml) 1,000 mls @ 0 mls/hr IV .Q0M PRN; Protocol; Per Protocol PRN Reason: Hypoglycemia Protocol Heparin Sodium/Sodium Chloride (Heparin 79165 Units/250ml 1/2 Normal Saline) 25 ,000 units in 250 mls @ 15.177 mls/hr IV .[id number] PRN; Protocol; 14 UNITS/KG/HR PRN Reason: PROTOCOL Last Admin: 04/07/18 16:54 Dose: 14 units/kg/hr, 15.177 mls/hr Insulin Human Regular (Novolin R) 0 unit SC ACHS [facility] PRN Reason: Protocol Last Admin: 04/08/18 12:23 Dose: 1 units Midodrine (Proamatine) 5 mg PO TID [facility] Last Admin: 04/08/18 13:38 Dose: 5 mg Pantoprazole Sodium (Protonix Ec Tab) 40 mg PO DAILY [facility] Last Admin: 04/08/18 10:09 Dose: 40 mg Saccharomyces Boulardii (Florastor) 250 mg PO Q12 [facility] Last Admin: 04/08/18 10:09 Dose: 250 mg - Labs Labs: 04/08/18 06:36 04/08/18 06:36 PT 13.3 SECONDS (9.7-12.2) H 04/02/18 15:25 INR 1.2 04/02/18 15:25 APTT 61 SECONDS (21-34) H D 04/07/18 06:14 Assessment and Plan - Assessment and Plan (Free Text) Assessment: 1) Severe Sepsis/Septic shock/Bacteremia Patient has chronic cellulitis over the legs /poor hygiene s/p code sepsis Dr valdez on board Blood culture shows Pasteurella multocida(Patient feeds stray cats) Wound Culture Right Leg shows Serratia marcescens and Sphingomonas paucimobilis Stool cd negative,urine culture negative chest x ray Pleral effusion Obstructive series suspicious for SBO. continue Meropenem 500mg IVP Q8H Dr Valdez 's follow up appreciated follow AMANDA to r/o vegetations Follow repeat blood culture(drawn 04/07) CT chest/abd/pelvis w/o contrast: dependent atelectasis, mild cardiomegaly, small hiatal hernia, subtle hypodensities in gallbladder (mass vs stone), 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, 1.5 cm left renal cyst, postoperative changes from bowel surgery, moderate stool in rectosigmoid colon, few mildly dilated small bowel loops Abdomen U/S: hepatic parenchyma disease, gallstones CT head w/o contrast: chronic microvascular changes, no focal deficit Chest X Ray 04/05/18 showed bilateral pleural effusion ) 2) Bilateral Lower Cellulitis Dressing on. wound not examined. d/w podiatry resident His legs are edematous, erythematous, and weeping and with maggots upon presentation (Dakin's solution x 2 were given and the maggots are gone) No x ray evidence of osteomylitis. continue wound care and antibiotics ,seen by cotton expert Meropenem 500mg q8h Florastor 250mg po q12h 3) Distended bowel loops/Abdomen Denies nausea or vomiting. Obstructive series: multiple dilated small bowel loops suspicious for SBO f/u abd CT 4) Metabolic Encephalopathy Imroving.He is alert and oriented Likely due to sepsis, uremia, severe metabolic acidosis CT head w/o contrast: chronic microvascular changes, no focal deficit 6) Acute on Chronic Renal Insufficiency Improving,he is off bicarbonate drip Emergent HD through femoral catheter placed by ICU (right groin) on 04/02/18 7) Atrial Fibrillation Cardiology (Dr. Henriquez) on board Echocardiogram 04/02/18: LA moderate dilation, mild concentric hypertrophy, EF 60 -65%, normal diastolic filling Amiodarone 200mg po q12h Eliquis 5mg po BID ASA 81mg po daily heparin drip 8) Anemia Secondary to CKD Stage 4 monitor 10) Prophylactic care Heparin drip Protonix 40mg po daily Florastor 250mg po q12h <Anna Strange - Last Filed: 04/08/18 17:17> Objective - Vital Signs/Intake and Output Vital Signs (last 24 hours): Temp Pulse Resp BP Pulse Ox 98 F 67 20 107/67 96 04/08/18 15:00 04/08/18 15:00 04/08/18 15:00 04/08/18 15:00 04/08/18 15:00 Intake and Output: 04/08/18 04/08/18 06:59 18:59 Intake Total 1076.6 Output Total 2 Balance 1074.6 - Medications Medications: Current Medications Al Hydrox/Mg Hydrox/Simethicone (Maalox Plus 30 Ml) 30 ml PO Q4H PRN PRN Reason: Indigestion / Heartburn Last Admin: 04/06/18 14:50 Dose: 30 ml Amiodarone HCl (Cordarone) 200 mg PO Q12 [facility] Last Admin: 04/08/18 10:09 Dose: 200 mg Apixaban (Eliquis) 5 mg PO BID [facility] Last Admin: 04/08/18 10:13 Dose: 5 mg Aspirin (Aspirin Chewable) 81 mg PO DAILY [facility] Last Admin: 04/08/18 10:09 Dose: 81 mg Dextrose (Dextrose 50% Inj) 0 ml IV STAT PRN; Protocol PRN Reason: Hypoglycemia Protocol Dextrose (Glutose 15) 0 gm PO ONCE PRN; Protocol PRN Reason: Hypoglycemia Protocol Glucagon (Glucagen Diagnostic Kit) 0 mg IM STAT PRN; Protocol PRN Reason: Hypoglycemia Protocol Meropenem 500 mg/ Sodium (Chloride) 100 mls @ 100 mls/hr IVPB Q8 [facility] PRN Reason: Protocol Last Admin: 04/08/18 13:35 Dose: 100 mls/hr Heparin Sodium/Sodium Chloride (Heparin 13432 Units/250ml 1/2 Normal Saline) 25 ,000 units in 250 mls @ 15.177 mls/hr IV .[id number] PRN; Protocol; 14 UNITS/KG/HR PRN Reason: PROTOCOL Last Admin: 04/07/18 16:54 Dose: 14 units/kg/hr, 15.177 mls/hr Insulin Human Regular (Novolin R) 0 unit SC ACHS [facility] PRN Reason: Protocol Last Admin: 04/08/18 12:23 Dose: 1 units Midodrine (Proamatine) 5 mg PO TID [facility] Last Admin: 04/08/18 13:38 Dose: 5 mg Pantoprazole Sodium (Protonix Ec Tab) 40 mg PO DAILY [facility] Last Admin: 04/08/18 10:09 Dose: 40 mg Saccharomyces Boulardii (Florastor) 250 mg PO Q12 [facility] Last Admin: 04/08/18 10:09 Dose: 250 mg - Labs Labs: 04/08/18 06:36 04/08/18 06:36 PT 13.3 SECONDS (9.7-12.2) H 04/02/18 15:25 INR 1.2 04/02/18 15:25 APTT 61 SECONDS (21-34) H D 04/07/18 06:14 Attending/Attestation - Attestation I have personally seen and examined this patient.: Yes I have fully participated in the care of the patient.: Yes I have reviewed all pertinent clinical information, including history, physical exam and plan: Yes Notes (Text): Covering for DR Gagnon seen and examined with the resident. discussed with the patient's son at bedside Discussed with cotton expert just after finished dressing. Patient states its painful to go through dressing change. Pics of wound shows some superficial necrotic areas and chronic stasis ulcer. continue antibiotics as per Dr Valdez. his repeat blood c/s from 04/07 is negative c/o diarrhea. we will do stool for Cd toxin Patient has a picc line. Need about 14 days of IV antibiotics a Dr Valdez I agree with the residents documentation of the assessment and the plan 04/08/18 17:16
--- NOTE | 2018-04-08 18:21 | CT ---
PROCEDURE: CT chest abdomen pelvis dated 04/07/2018. HISTORY: abdominal distention concern for SBO COMPARISON: Comparison made with CT scan chest abdomen pelvis dated 04/02/2018. TECHNIQUE: Contiguous helical/transaxial sections of the chest abdomen pelvis performed without oral or intravenous contrast material. Additional 2D sagittal and coronal reformats generated. . Radiation dose: Total exam DLP = 2001.95 mGy-cm. This CT exam was performed using one or more of the following dose reduction techniques: Automated exposure control, adjustment of the mA and/or kV according to patient size, and/or use of iterative reconstruction technique. FINDINGS: CT CHEST WITH CONTRAST: LUNGS: Medium size right-sided effusion with consolidation changes in the right lower lobe. Smaller left-sided effusion with minor left basilar atelectasis/ consolidation. MEDIASTINUM: . The intravascular compartment exhibits slight low-attenuation suggesting mild anemia. Clinical correlation recommended. LYMPH NODES: Unremarkable. PLEURA: As above. No evidence of pneumothorax BONES: Unremarkable. OTHER FINDINGS: Bilateral changes of gynecomastia. CT ABDOMEN AND PELVIS: LIVER: Unremarkable. No gross lesion or ductal dilatation. GALLBLADDER AND BILE DUCTS: Cholelithiasis. PANCREAS: Pancreas is atrophic and fatty replaced. No pancreatic masses collections or calcifications. SPLEEN: Spleen is mildly enlarged measuring over 14 cm in AP dimension. ADRENALS: 2.3 cm left adrenal nodule of uncertain etiology. Followup MRI of the adrenal glands without contrast could be performed for further evaluation. KIDNEYS AND URETERS: Kidneys demonstrate relatively symmetric size. No evidence of nephrolithiasis or hydronephrosis. VASCULATURE: Unremarkable. No aortic aneurysm. BOWEL: Evaluation of the bowel is limited due to incomplete opacification. The stomach is distended with air and fluid. There are multiple of fairly significantly air and fluid-filled loops of small bowel possibly representing diarrheal illness as no obvious transition point is identified. . Status post subtotal colectomy. . There is a large amount of stool within the residual colon suggesting diarrheal illness. APPENDIX: Status post subtotal colectomy PERITONEUM: No gross free intraperitoneal air. LYMPH NODES: Unremarkable. No enlarged lymph nodes. BLADDER: Few small bubbles of air within the urinary bladder likely due to prior instrumentation however infection with gas-forming organism not excluded. REPRODUCTIVE: Multilevel degenerative spondylosis of the thoracic and lumbar spine. BONES: No acute fracture. OTHER FINDINGS: None. IMPRESSION: Bilateral effusions and consolidation changes right greater than left as described. Cholelithiasis. Status post subtotal colectomy with distended air and fluid-filled loops of residual small bowel possibly representing a diarrheal illness with large amount of fluid in the residual colon. No definitive transition point seen to suggest small bowel obstruction however continued follow-up recommended to assess for oral contrast material passes into the large bowel. Stable appearing left adrenal nodule. Followup studies could performed as above.
--- NOTE | 2018-04-08 23:49 | CP.PCM.PN ---
Subjective - Date & Time of Evaluation Date of Evaluation: 04/08/18 Time of Evaluation: 16:15 - Subjective Subjective: Patient seen and evaluated Denies chest pain and dypnea Review of Systems - Review of Systems Systems not reviewed;Unavailable: Altered Mental Status Review of Systems: Per son: - Constitutional Constitutional: Chills, Fever, Lethargy, Malaise - Cardiovascular Cardiovascular: absent: Chest Pain - Respiratory Respiratory: Dyspnea - Gastrointestinal Gastrointestinal: absent: Abdominal Pain - Genitourinary Genitourinary: absent: Dysuria Physical Exam - Constitutional Appears: In Acute Distress - Head Exam Head Exam: ATRAUMATIC, NORMAL INSPECTION - Eye Exam Eye Exam: EOMI Pupil Exam: PERRL - ENT Exam ENT Exam: Mucous Membranes Dry - Neck Exam Neck exam: Positive for: Normal Inspection - Respiratory Exam Respiratory Exam: Clear to Auscultation Bilateral, NORMAL BREATHING PATTERN. absent: Rales, Rhonchi, Wheezes - Cardiovascular Exam Cardiovascular Exam: Tachycardia, +S1, +S2. absent: JVD - GI/Abdominal Exam GI & Abdominal Exam: Diminished Bowel Sounds, Soft - Extremities Exam Extremities exam: Negative for: normal capillary refill - Neurological Exam Neurological exam: Altered Objective - Vital Signs/Intake and Output Vital Signs (last 24 hours): Temp Pulse Resp BP Pulse Ox 98 F 67 20 107/67 96 04/08/18 15:00 04/08/18 15:00 04/08/18 15:00 04/08/18 15:00 04/08/18 15:00 Intake and Output: 04/08/18 04/09/18 18:59 06:59 Intake Total 350 Balance 350 - Medications Medications: Current Medications Al Hydrox/Mg Hydrox/Simethicone (Maalox Plus 30 Ml) 30 ml PO Q4H PRN PRN Reason: Indigestion / Heartburn Last Admin: 04/06/18 14:50 Dose: 30 ml Amiodarone HCl (Cordarone) 200 mg PO Q12 [facility] Last Admin: 04/08/18 21:42 Dose: 200 mg Apixaban (Eliquis) 5 mg PO BID [facility] Last Admin: 04/08/18 17:31 Dose: 5 mg Aspirin (Aspirin Chewable) 81 mg PO DAILY [facility] Last Admin: 04/08/18 10:09 Dose: 81 mg Dextrose (Dextrose 50% Inj) 0 ml IV STAT PRN; Protocol PRN Reason: Hypoglycemia Protocol Dextrose (Glutose 15) 0 gm PO ONCE PRN; Protocol PRN Reason: Hypoglycemia Protocol Glucagon (Glucagen Diagnostic Kit) 0 mg IM STAT PRN; Protocol PRN Reason: Hypoglycemia Protocol Meropenem 500 mg/ Sodium (Chloride) 100 mls @ 100 mls/hr IVPB Q8 [facility] PRN Reason: Protocol Last Admin: 04/08/18 21:41 Dose: 100 mls/hr Heparin Sodium/Sodium Chloride (Heparin 78998 Units/250ml 1/2 Normal Saline) 25 ,000 units in 250 mls @ 15.177 mls/hr IV .[id number] PRN; Protocol; 14 UNITS/KG/HR PRN Reason: PROTOCOL Last Admin: 04/07/18 16:54 Dose: 14 units/kg/hr, 15.177 mls/hr Insulin Human Regular (Novolin R) 0 unit SC ACHS [facility] PRN Reason: Protocol Last Admin: 04/08/18 21:36 Dose: Not Given Midodrine (Proamatine) 5 mg PO TID [facility] Last Admin: 04/08/18 19:00 Dose: 5 mg Pantoprazole Sodium (Protonix Ec Tab) 40 mg PO DAILY [facility] Last Admin: 04/08/18 10:09 Dose: 40 mg Saccharomyces Boulardii (Florastor) 250 mg PO Q12 [facility] Last Admin: 04/08/18 21:43 Dose: 250 mg - Labs Labs: 04/08/18 06:36 04/08/18 06:36 PT 13.3 SECONDS (9.7-12.2) H 04/02/18 15:25 INR 1.2 04/02/18 15:25 APTT 61 SECONDS (21-34) H D 04/07/18 06:14 Assessment and Plan - Assessment and Plan (Free Text) Assessment: This is a 72 year old male with PMHx of arthritis, history of colon polyps, kidney stones, renal insufficiency, glaucoma s/p partial colectomy brought by EMS as aptient fell out of his chair. Admitted for severe sepsis, septic shock 2 /2 bilateral lower extremity cellulitis, metabolic encephalopathy 2/2 ARF ( severe metabolic acidosis and uremia), and atrial fibrillation with RVR. Right PICC line placed 04/05 AMANDA 04/07- Plan: Neuro: GCS15 A: AMS - RESOLVED - Head CT - negative A: Metabolic Encephalopathy - RESOLVED - Likely 2/2 uremia and severe metabolic acidosis from ARF Cardio: A: New Onset Atrial Fibrillation with RVR - rate controlled - ECHO: LVEF 60-65%, LVH, sclerotic trileaflet aortic valve - TSH, Free T4 - WNL - Was given digoxin, verapamil - Currently on OFF amio and verapamil drip - Now on Amio 200mg PO Q12 - Heparin drip started - will be discontinued 04/08--> Eliquis 5mg PO BID A: Hypotension - resolving - Stopped vaso; Currently on Midodrine ; tolerating well - Started LR @75cc GI: A: Diarrhea - RESOLVING - Started on vanco, flagyl - Cdiff negative, stool studies negative A: Cholelithiasis - CT chest/ab/pel: No evidence of pneumonia or empyema. Possible cholelithiasis. Correlate with ultrasound examination. Status post subtotal colectomy. Mural thickening of small bowel loops in the right lower quadrant. Nonspecific finding. Small hiatal hernia. Bilateral gynecomastia. Stable left adrenal adenoma. Small left renal cortical cyst. - Abdominal US: Cholelithiasis with prominent gallbladder calculus up to 2.3 cm at the neck of the gallbladde, additional calculus at the neck of the gallbladder measuring 1.3 cm. CBD 4.8mm. - T. bili now 0.8 A: Hx of Colon CA s/p subtotal colectomy? Endo: A: T2DM - Accuchecks, ISS - A1C 7.2 Renal: A: Acute Renal Failure with severe metabolic acidosis, hyperkalemia - RESOLVED -- Dr. Luna consulted - Right Shiley placed 04/02 - Received dialysis 04/02 - Started on Bicarb drip @ 75cc/hr - DC - HD TTS - SHILEY REMOVED 04/06 - no more dialysis at this time, renal function improving ID: A: Septic Shock -- ID consulted, Dr. Valdez -- Wound Care - / bilateral lower extremity cellulitis - BC grew Pasteurella, f/u repeat BC 04/07 - Wound Culture: Serratia Marcescens - Started on Meropenem 04/02/18 (VANCO was DC) A: + Blood Cultures - AMANDA 04/07 - r/o endocarditis A: Bilateral Lower Extremity Cellulitis -- Podiatry was consulted -- Wound care on board - Venous dopplers ordered - NEGATIVE FOR DVT - Xray - negative for osteo Heme/Onc: A: Anemia, thrombocytopenia - Baseline 11 - DDAVP given, albumin 25grms given, ASA, heparin held - Stool occult + - Hemoglobin is stabilizing 04/07 - stopped PPI Q12, now daily, resumed ASA, hep (will transition to Eliquis) - Continue to monitor Prophylaxis: - PPI - SCDs c/i, Heparin drip --> Eliquis - Florastor started - PT/ OT - POLST form filled out: Patient is DNR/DNI - Consent: Son Troy Bowden, , [place] [phone] - Case management for residential placement - Right PICC Line - 04/05
[2018-04-09] MEDS: Meropenem 500 MG in Sodium Chloride 0.9% 100 ML IVPB SCH ×3 (05:52→22:25)
[2018-04-09 07:03] LABS: BASO % 0.2 % (0.0-2.0); EOS # 0.2 K/uL (0.0-0.7); EOS % 1.8 % (0.0-4.0); HEMOGLOBIN 8.9 g/dL (12.0-18.0); LYMPH # 0.7 K/uL (1.0-4.3); LYMPH % 6.7 % (20.0-40.0); MEAN CELL VOLUME 95.1 fL (80.0-94.0); MEAN CORPUSCULAR HEMOGLOBIN 31.6 pg (27.0-31.0); MEAN CORPUSCULAR HGB CONC 33.2 g/dL (33.0-37.0); MEAN PLATELET VOLUME 9.5 fL (7.2-11.7); MONO # 0.9 K/uL (0.0-0.8); MONO % 8.8 % (0.0-10.0); NEUT # 8.2 K/uL (1.8-7.0); NEUT % 82.5 % (50.0-75.0); PLATELET COUNT 123 K/uL (130-400); RBC 2.81 Mil/uL (4.40-5.90); RED CELL DISTRIBUTION WIDTH 14.8 % (11.5-14.5); WHITE BLOOD COUNT 9.9 K/uL (4.8-10.8)
[2018-04-09] MEDS: (Novolin R) Insulin Human Regular 100 units/ml vial SC SCH ×4 (07:38→21:52)
[2018-04-09 07:55] LABS: ALB/GLOB RATIO 0.9 (1.0-2.1); ALBUMIN 2.3 g/dL (3.5-5.0); CALCIUM 7.6 mg/dl (8.6-10.4)
[2018-04-09] MEDS ORDERED: Potassium Chloride 20 mEq ER Tab PO ONE (08:31)
--- NOTE | 2018-04-09 08:57 | CP.PCM.PN ---
Subjective - Date & Time of Evaluation Date of Evaluation: 04/09/18 Time of Evaluation: 08:55 - Subjective Subjective: Podiatry Progress Note - Dr. Aldridge 72 y/o male was seen at bedside this morning with attending Dr. Aldridge for bilateral leg wounds. Pt is AAOx3 in NAD, resting comfortably in bed at time of visit. Patient admits to mild-moderate pain which is intermittent but controlled by meds. Dressings are dry/clean and intact. Patient denies any overnight acute events. Patient denies F/C/N/V/CP/SOB Objective - Vital Signs/Intake and Output Vital Signs (last 24 hours): Temp Pulse Resp BP Pulse Ox 98.4 F 89 20 104/64 96 04/09/18 07:00 04/09/18 07:10 04/09/18 07:00 04/09/18 07:00 04/09/18 07:00 Intake and Output: 04/09/18 04/09/18 06:59 18:59 Intake Total 820 Balance 820 - Medications Medications: Current Medications Al Hydrox/Mg Hydrox/Simethicone (Maalox Plus 30 Ml) 30 ml PO Q4H PRN PRN Reason: Indigestion / Heartburn Last Admin: 04/06/18 14:50 Dose: 30 ml Amiodarone HCl (Cordarone) 200 mg PO Q12 [facility] Last Admin: 04/08/18 21:42 Dose: 200 mg Apixaban (Eliquis) 5 mg PO BID [facility] Last Admin: 04/08/18 17:31 Dose: 5 mg Aspirin (Aspirin Chewable) 81 mg PO DAILY [facility] Last Admin: 04/08/18 10:09 Dose: 81 mg Dextrose (Dextrose 50% Inj) 0 ml IV STAT PRN; Protocol PRN Reason: Hypoglycemia Protocol Dextrose (Glutose 15) 0 gm PO ONCE PRN; Protocol PRN Reason: Hypoglycemia Protocol Glucagon (Glucagen Diagnostic Kit) 0 mg IM STAT PRN; Protocol PRN Reason: Hypoglycemia Protocol Meropenem 500 mg/ Sodium (Chloride) 100 mls @ 100 mls/hr IVPB Q8 [facility] PRN Reason: Protocol Last Admin: 04/09/18 05:52 Dose: 100 mls/hr Heparin Sodium/Sodium Chloride (Heparin 84777 Units/250ml 1/2 Normal Saline) 25 ,000 units in 250 mls @ 15.177 mls/hr IV .[id number] PRN; Protocol; 14 UNITS/KG/HR PRN Reason: PROTOCOL Last Admin: 04/07/18 16:54 Dose: 14 units/kg/hr, 15.177 mls/hr Insulin Human Regular (Novolin R) 0 unit SC ACHS [facility] PRN Reason: Protocol Last Admin: 04/09/18 07:38 Dose: 1 units Midodrine (Proamatine) 5 mg PO TID [facility] Last Admin: 04/08/18 19:00 Dose: 5 mg Pantoprazole Sodium (Protonix Ec Tab) 40 mg PO DAILY [facility] Last Admin: 04/08/18 10:09 Dose: 40 mg Saccharomyces Boulardii (Florastor) 250 mg PO Q12 [facility] Last Admin: 04/08/18 21:43 Dose: 250 mg - Labs Labs: 04/09/18 06:53 04/09/18 06:53 PT 13.3 SECONDS (9.7-12.2) H 04/02/18 15:25 INR 1.2 04/02/18 15:25 APTT 61 SECONDS (21-34) H D 04/07/18 06:14 - Constitutional Appears: Well, Non-toxic, No Acute Distress - Extremities Exam Additional comments: Lower extremity focused exam: Derm: Multiple ulcerations noted circumferentially around the leg B/L. Erythema noted from the ankle joint to the tibial tuberosity B/L Left: Ulceration noted to the dorsal distal aspect of the anterior leg with irregular wound border, measuring approximately 5 cm x 4 cm x 0.3 cm, no probe to bone, 100% granular base, no malodor, no purulence, active sero-sanguineous drainage noted, no tunneling or tracking noted, periwound erythema, no clinical signs of infection. Multiple small ulcerations on lateral and posterior aspects of distal leg with regular borders, 100% fibrotic base, no probe to bone, serous drainage noted, no purulence, no tunneling or tracking noted, periwound erythema no clinical signs of infection. Right: Ulceration noted at the distal aspect of dorsal leg, irregular border measuring approximately 6 cm x 5 cm x .3, no probe to bone, fibrogranular base, no malodor noted, active sanguineous drainage noted, no tunneling or tracking noted, dion wound erythema, no clinical signs of infection noted. Vascular: Non-palpable DP and PT pulses secondary to pitting edema. +3 pitting edema to bilateral LE noted. CFT <3 secs noted to all digits, no pedal hair noted Neuro: protective sensation grossly diminished Ortho: Mild tenderness to palpation of leg ulceration sites - Neurological Exam Neurological Exam: Alert, Awake, Oriented x3 - Psychiatric Exam Psychiatric exam: Normal Affect, Normal Mood Assessment and Plan - Assessment and Plan (Free Text) Assessment: 72 y/o male seen by bedside for multiple, chronic ulcerations to bilateral legs Plan: Patient was seen and evaluated at bedside with Dr. Aldridge Bilateral leg ulcers cleaned with saline and dressed with xeroform, gauze, ABD pads and kerlix Podiatry to continue local wound care to legs- no surgical intervention planned at this time Multipodus boots to be kept on at all times in bed Podiatry will continue to follow patient while in house
[2018-04-09] MEDS: Pantoprazole 40 mg EC Tab PO SCH (09:37)
[2018-04-09] MEDS: Saccharomyces Boulardi 250 mg Cap PO SCH ×2 (09:37→22:26)
--- NOTE | 2018-04-09 10:54 | CP.PCM.PN ---
Subjective - Date & Time of Evaluation Date of Evaluation: 04/09/18 Time of Evaluation: 10:20 - Subjective Subjective: Hospitalist Service Patient seen and examined this morning. Patient does not have family at bedside. Patient was changed and cleaned by the nurse and clinical partner. Objective - Vital Signs/Intake and Output Vital Signs (last 24 hours): Temp Pulse Resp BP Pulse Ox 98.4 F 89 20 104/64 96 04/09/18 07:00 04/09/18 07:10 04/09/18 07:00 04/09/18 07:00 04/09/18 07:00 Intake and Output: 04/09/18 04/09/18 06:59 18:59 Intake Total 820 Balance 820 - Medications Medications: Current Medications Al Hydrox/Mg Hydrox/Simethicone (Maalox Plus 30 Ml) 30 ml PO Q4H PRN PRN Reason: Indigestion / Heartburn Last Admin: 04/06/18 14:50 Dose: 30 ml Amiodarone HCl (Cordarone) 200 mg PO Q12 [facility] Last Admin: 04/09/18 09:37 Dose: 200 mg Apixaban (Eliquis) 5 mg PO BID [facility] Last Admin: 04/09/18 09:37 Dose: 5 mg Aspirin (Aspirin Chewable) 81 mg PO DAILY [facility] Last Admin: 04/09/18 09:37 Dose: 81 mg Dextrose (Dextrose 50% Inj) 0 ml IV STAT PRN; Protocol PRN Reason: Hypoglycemia Protocol Dextrose (Glutose 15) 0 gm PO ONCE PRN; Protocol PRN Reason: Hypoglycemia Protocol Glucagon (Glucagen Diagnostic Kit) 0 mg IM STAT PRN; Protocol PRN Reason: Hypoglycemia Protocol Meropenem 500 mg/ Sodium (Chloride) 100 mls @ 100 mls/hr IVPB Q8 [facility] PRN Reason: Protocol Last Admin: 04/09/18 05:52 Dose: 100 mls/hr Heparin Sodium/Sodium Chloride (Heparin 24756 Units/250ml 1/2 Normal Saline) 25 ,000 units in 250 mls @ 15.177 mls/hr IV .[id number] PRN; Protocol; 14 UNITS/KG/HR PRN Reason: PROTOCOL Last Admin: 04/07/18 16:54 Dose: 14 units/kg/hr, 15.177 mls/hr Insulin Human Regular (Novolin R) 0 unit SC ACHS [facility] PRN Reason: Protocol Last Admin: 04/09/18 07:38 Dose: 1 units Midodrine (Proamatine) 5 mg PO TID [facility] Last Admin: 04/09/18 09:36 Dose: 5 mg Mupirocin (Bactroban Ointment) 0 gm TOP DAILY [facility] Pantoprazole Sodium (Protonix Ec Tab) 40 mg PO DAILY [facility] Last Admin: 04/09/18 09:37 Dose: 40 mg Saccharomyces Boulardii (Florastor) 250 mg PO Q12 [facility] Last Admin: 04/09/18 09:37 Dose: 250 mg - Labs Labs: 04/09/18 06:53 04/09/18 06:53 PT 13.3 SECONDS (9.7-12.2) H 04/02/18 15:25 INR 1.2 04/02/18 15:25 APTT 61 SECONDS (21-34) H D 04/07/18 06:14 Assessment and Plan - Assessment and Plan (Free Text) Assessment: Assessment/Plan 1) Severe Sepsis Septic Shock Assessment/Plan * Etiologies: b/l cellulitis over the legs (noted since 2017 available in the EMR) * Admitted to the ICU; transferred out 04/07/18 * Code sepsis: 04/02/18 in the ED * On admission: hypotensive, temp 94 deg, wbc 52, lactate 3.3 * Elevated procalcitonin-->will repeat * Consult Infectious Disease, Dr Valdez on board * CT chest/abd/pelvis w/o contrast: dependent atelectasis, mild cardiomegaly, small hiatal hernia, subtle hypodensities in gallbladder (mass vs stone), 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, 1.5 cm left renal cyst, postoperative changes from bowel surgery, moderate stool in rectosigmoid colon, few mildly dilated small bowel loops * Abdomen U/S: hepatic parenchymal disease, gallstones * CT head w/o contrast: chronic microvascular changes, no focal deficit * Chest X Ray 04/05/18 showed bilateral pleural effusion * C.Diff toxin negative * Urine Culture negative * Hepatitis Panel is negative * Wound Culture Right Leg shows Serratia marcescens and Sphingomonas paucimobilis * PICC Line Right placed 04/05/18 * Blood culture (04/02/18): Pasteurella multocida X2 * Blood culture (04/07/18): no growth after 48hours X2 * Blood culture (04/08/18): no growth after 24hours X2 Medications: * Meropenem 500mg IVP Q8H (active since 04/03/18) * AMANDA is negative for endocarditis * Currently on Midodrine 5 mg PO TID 2) Bilateral Lower Cellulitis Assessment/Plan * Podiatry (Dr. Aldridge) on board-->help appreciated * patient's legs are edematous, erythematous, and weeping and with maggots upon presentation (Dakin's solution x 2 were given and the maggots are gone) * Wound Culture Right Leg shows Serratia marcescens and Sphingomonas paucimobilis: Meropenem 500 mg IV Q8H * Prior hx of cellulitis since 2017 noted in the EMR * Tib/Fib X Ray bilateral showed NO radiographic evidence of osteomyelitis * Infectious Disease Dr. Valdez * If podiatry consult warranted, please consult Dr. Johnnie Minor/Dr. To who has seen this patient in prior admission 3) Metabolic Encephalopathy Assessment/Plan * Etiology: sepsis, uremia, severe metabolic acidosis * emergent dialysis catheter placed by ICU on 04/02/18 * Nephrology (Dr. Luna) on board-->help appreciated * CT head w/o contrast: chronic microvascular changes, no focal deficit 4) Acute on Chronic Renal Insufficiency-->normalized Severe Metabolic Acidosis-->resolved Hyperkalemia-->resolved Assessment/Plan * Nephrology (Dr. Luna) on board-->help appreciated * Note: history of nephrolithasis, prior hx of cystoscopy and stent insertion per EMR * Emergent HD through femoral catheter placed by ICU (right groin) on 04/02/18 * Bicarbonate drip: D5 W with 150 mEQ NaHCO3 at 75 ml/hr was discontinued on * Shiley removed 04/06/18 * Renal function recovering 5) Atrial Fibrillation w RVR Assessment/Plan * Cardiology (Dr. Henriquez) on board-->help appreciated * Patient was diagnosed with new onset atrial fibrillation last admission * Digoxin is < 0.4 04/03/18 * Echocardiogram 04/02/18: LA moderate dilation, mild concentric hypertrophy, EF 60-65%, normal diastolic filling * ASA 81 mg PO 1x/day * Amiodorone 200 mg PO Q12H * Eliquis 5mg PO BID 6) History of colonic polyps History of partial colectecomy Assessment/Plan 7) Prior history of incarcerated hernia and small bowel obstruction Assessment/Plan * Noted in the EMR from patient's last hospitalization with Dr. Ceja who performed the surgery * CT chest/abdomen/pelvis (04/08/18): bilateral effusions and consolidation changes right greater than left as described. Cholelithiasis. Status post subtoal colectomy with distended air and fluid filled loops of residual small bowel representing diarrheal illness with large amount of fluid in residual colon. No definitive transition poinnt seen to suggest small bowel obstruction. Stable left adrenal nodule * C. Dif X3 negative * 04/03/18: no salmonella, no shigella, no campylobacteria * Pending stool culture and leukocytes 8) Anemia Secondary to CKD Stage 4 * Monitor HgB/Hct 9) Diabetes, newly diagnosed * hgba1c: 7.2 * Accuchecks QAC and HS * Hypoglycemic protocol * Restaurant [employer] referral 10) Thrombocytopenia * borderline low * on Eliquis and Aspirin 11) Prophylactic care * Contraindications to SCDS given cellulitis noted on bilateral legs * Eliquis 5mg PO BID * protonix 40mg PO daily * Swallow Evaluation: finely chopped thin liquids * Florastor 250 mg PO 2x/day * Wound culture * Turn [id number] * Prevalon boots * DNR/DNI Disposition: Palliative Care Nurse Gustavo with Son Troy (who was not present at time of my exam) 04/03/18: made DNR/DNI, POLST completed and in chart (FULL TREATMENT), would like patient to be placed in longterm care and not return home (where is lives with other son). [employer] Fin[employer] to arrange for longterm care facility placement. Dr. Morales to resume care tomorrow.
[2018-04-09 11:27] LABS: ANISOCYTOSIS SLIGHT; BANDS 1 % (0-2); EOSINOPHIL 1 % (0-4); LYMPHOCYTE 5 % (20-40); METAMYELOCYTE 1 % (0-0); MONOCYTE 13 % (0-10); NEUTROPHIL 79 % (50-75); PLATELET ESTIMATE SLIGHTLY DECREASED (NORMAL); TOTAL CELLS COUNTED 100
[2018-04-09 11:28] LABS: HYPOCHROMIC SLIGHT; POLYCHROMIC SLIGHT; TOXIC GRANULATION PRESENT
[2018-04-09 11:35] LABS: LARGE PLATELETS PRESENT
--- NOTE | 2018-04-09 14:18 | CP.PCM.PN ---
Subjective - Date & Time of Evaluation Date of Evaluation: 04/09/18 Time of Evaluation: 08:00 - Subjective Subjective: SEEN ON ROUNDS SEVERELY DEPRESSED AWAKE ALERT NAD Objective - Vital Signs/Intake and Output Vital Signs (last 24 hours): Temp Pulse Resp BP Pulse Ox 98.4 F 89 20 104/64 96 04/09/18 07:00 04/09/18 07:10 04/09/18 07:00 04/09/18 07:00 04/09/18 07:00 Intake and Output: 04/09/18 04/09/18 06:59 18:59 Intake Total 820 550 Balance 820 550 - Medications Medications: Current Medications Al Hydrox/Mg Hydrox/Simethicone (Maalox Plus 30 Ml) 30 ml PO Q4H PRN PRN Reason: Indigestion / Heartburn Last Admin: 04/06/18 14:50 Dose: 30 ml Amiodarone HCl (Cordarone) 200 mg PO Q12 [facility] Last Admin: 04/09/18 09:37 Dose: 200 mg Apixaban (Eliquis) 5 mg PO BID [facility] Last Admin: 04/09/18 09:37 Dose: 5 mg Aspirin (Aspirin Chewable) 81 mg PO DAILY [facility] Last Admin: 04/09/18 09:37 Dose: 81 mg Dextrose (Dextrose 50% Inj) 0 ml IV STAT PRN; Protocol PRN Reason: Hypoglycemia Protocol Dextrose (Glutose 15) 0 gm PO ONCE PRN; Protocol PRN Reason: Hypoglycemia Protocol Glucagon (Glucagen Diagnostic Kit) 0 mg IM STAT PRN; Protocol PRN Reason: Hypoglycemia Protocol Meropenem 500 mg/ Sodium (Chloride) 100 mls @ 100 mls/hr IVPB Q8 [facility] PRN Reason: Protocol Last Admin: 04/09/18 13:25 Dose: 100 mls/hr Insulin Human Regular (Novolin R) 0 unit SC ACHS [facility] PRN Reason: Protocol Last Admin: 04/09/18 12:10 Dose: Not Given Midodrine (Proamatine) 5 mg PO TID [facility] Last Admin: 04/09/18 13:25 Dose: 5 mg Mupirocin (Bactroban Ointment) 0 gm TOP DAILY [facility] Last Admin: 04/09/18 09:00 Dose: 1 applic Pantoprazole Sodium (Protonix Ec Tab) 40 mg PO DAILY [facility] Last Admin: 04/09/18 09:37 Dose: 40 mg Saccharomyces Boulardii (Florastor) 250 mg PO Q12 [facility] Last Admin: 04/09/18 09:37 Dose: 250 mg - Labs Labs: 04/09/18 06:53 04/09/18 06:53 PT 13.3 SECONDS (9.7-12.2) H 04/02/18 15:25 INR 1.2 04/02/18 15:25 APTT 61 SECONDS (21-34) H D 04/07/18 06:14 - Constitutional Appears: Non-toxic, Chronically Ill - Head Exam Head Exam: ATRAUMATIC. absent: NORMOCEPHALIC - Eye Exam Eye Exam: PERRL. absent: Scleral icterus - ENT Exam ENT Exam: Mucous Membranes Dry, Normal External Ear Exam - Respiratory Exam Respiratory Exam: Decreased Breath Sounds, Clear to Ausculation Bilateral - Cardiovascular Exam Cardiovascular Exam: REGULAR RHYTHM - GI/Abdominal Exam GI & Abdominal Exam: Distended, Soft - Rectal Exam Rectal Exam: Deferred - Exam Exam: NORMAL INSPECTION - Extremities Exam Extremities Exam: Pedal Edema, Tenderness. 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
--- NOTE | 2018-04-09 14:52 | CP.PCM.PCO ---
Physician Communication Note - Physician Communication Note Physician Communication Note: Dr. Morales to resume care 04/10/18
--- NOTE | 2018-04-09 15:08 | CP.PCM.PN ---
Subjective - Date & Time of Evaluation Date of Evaluation: 04/09/18 Time of Evaluation: 15:07 - Subjective Subjective: Patient with multiple medical history including renal insufficiency, nephrolithiasis, bilateral chronic leg edema, recurrent cellulitis, recent hospitalization with acute multiorgan failure, intestinal obstruction admitted now with cellulitis of the bilateral legs, associated with the severe septic shock and renal insufficiency. Briefly patient received hemodialysis. The catheter is removed After the resuscitation and currently an antibiotic patient now having increasing anasarca he. Gen. is edema noted now. But he is comfortable. Complaining of increasing diarrheal episodes. He is feeling better, eating well. I discussed with the covering attending. Patient is currently an antibiotic for the cellulitis of the legs. Renal insufficiency improving. Glucose is controlling well. Patient will probably need long-term IV antibiotic and also one management in the legs. I suggested for LTAC possibly if the patient agrees. Will follow-up the patient Objective - Vital Signs/Intake and Output Vital Signs (last 24 hours): Temp Pulse Resp BP Pulse Ox 98.4 F 89 20 104/64 96 04/09/18 07:00 04/09/18 07:10 04/09/18 07:00 04/09/18 07:00 04/09/18 07:00 Intake and Output: 04/09/18 04/09/18 06:59 18:59 Intake Total 820 550 Balance 820 550 - Medications Medications: Current Medications Al Hydrox/Mg Hydrox/Simethicone (Maalox Plus 30 Ml) 30 ml PO Q4H PRN PRN Reason: Indigestion / Heartburn Last Admin: 04/06/18 14:50 Dose: 30 ml Amiodarone HCl (Cordarone) 200 mg PO Q12 [facility] Last Admin: 04/09/18 09:37 Dose: 200 mg Apixaban (Eliquis) 5 mg PO BID [facility] Last Admin: 04/09/18 09:37 Dose: 5 mg Aspirin (Aspirin Chewable) 81 mg PO DAILY [facility] Last Admin: 04/09/18 09:37 Dose: 81 mg Dextrose (Dextrose 50% Inj) 0 ml IV STAT PRN; Protocol PRN Reason: Hypoglycemia Protocol Dextrose (Glutose 15) 0 gm PO ONCE PRN; Protocol PRN Reason: Hypoglycemia Protocol Glucagon (Glucagen Diagnostic Kit) 0 mg IM STAT PRN; Protocol PRN Reason: Hypoglycemia Protocol Meropenem 500 mg/ Sodium (Chloride) 100 mls @ 100 mls/hr IVPB Q8 [facility] PRN Reason: Protocol Last Admin: 04/09/18 13:25 Dose: 100 mls/hr Insulin Human Regular (Novolin R) 0 unit SC ACHS [facility] PRN Reason: Protocol Last Admin: 04/09/18 12:10 Dose: Not Given Midodrine (Proamatine) 5 mg PO TID [facility] Last Admin: 04/09/18 13:25 Dose: 5 mg Mupirocin (Bactroban Ointment) 0 gm TOP DAILY [facility] Last Admin: 04/09/18 09:00 Dose: 1 applic Pantoprazole Sodium (Protonix Ec Tab) 40 mg PO DAILY [facility] Last Admin: 04/09/18 09:37 Dose: 40 mg Saccharomyces Boulardii (Florastor) 250 mg PO Q12 [facility] Last Admin: 04/09/18 09:37 Dose: 250 mg - Labs Labs: 04/09/18 06:53 04/09/18 06:53 PT 13.3 SECONDS (9.7-12.2) H 04/02/18 15:25 INR 1.2 04/02/18 15:25 APTT 61 SECONDS (21-34) H D 04/07/18 06:14
--- NOTE | 2018-04-09 23:42 | CP.PCM.PN ---
Subjective - Date & Time of Evaluation Date of Evaluation: 04/09/18 Time of Evaluation: 17:30 - Subjective Subjective: Patient seen and evaluated Denies chest pain and dypnea Review of Systems - Review of Systems Systems not reviewed;Unavailable: Altered Mental Status Review of Systems: Per son: - Constitutional Constitutional: Chills, Fever, Lethargy, Malaise - Cardiovascular Cardiovascular: absent: Chest Pain - Respiratory Respiratory: Dyspnea - Gastrointestinal Gastrointestinal: absent: Abdominal Pain - Genitourinary Genitourinary: absent: Dysuria Physical Exam - Constitutional Appears: In Acute Distress - Head Exam Head Exam: ATRAUMATIC, NORMAL INSPECTION - Eye Exam Eye Exam: EOMI Pupil Exam: PERRL - ENT Exam ENT Exam: Mucous Membranes Dry - Neck Exam Neck exam: Positive for: Normal Inspection - Respiratory Exam Respiratory Exam: Clear to Auscultation Bilateral, NORMAL BREATHING PATTERN. absent: Rales, Rhonchi, Wheezes - Cardiovascular Exam Cardiovascular Exam: Tachycardia, +S1, +S2. absent: JVD - GI/Abdominal Exam GI & Abdominal Exam: Diminished Bowel Sounds, Soft - Extremities Exam Extremities exam: Negative for: normal capillary refill - Neurological Exam Neurological exam: Altered Objective - Vital Signs/Intake and Output Vital Signs (last 24 hours): Temp Pulse Resp BP Pulse Ox 98.6 F 94 H 20 105/65 95 04/09/18 15:00 04/09/18 15:00 04/09/18 15:00 04/09/18 15:00 04/09/18 15:00 Intake and Output: 04/09/18 04/10/18 18:59 06:59 Intake Total 550 Balance 550 - Medications Medications: Current Medications Al Hydrox/Mg Hydrox/Simethicone (Maalox Plus 30 Ml) 30 ml PO Q4H PRN PRN Reason: Indigestion / Heartburn Last Admin: 04/06/18 14:50 Dose: 30 ml Amiodarone HCl (Cordarone) 200 mg PO Q12 [facility] Last Admin: 04/09/18 22:26 Dose: 200 mg Apixaban (Eliquis) 5 mg PO BID [facility] Last Admin: 04/09/18 18:01 Dose: 5 mg Aspirin (Aspirin Chewable) 81 mg PO DAILY [facility] Last Admin: 04/09/18 09:37 Dose: 81 mg Dextrose (Dextrose 50% Inj) 0 ml IV STAT PRN; Protocol PRN Reason: Hypoglycemia Protocol Dextrose (Glutose 15) 0 gm PO ONCE PRN; Protocol PRN Reason: Hypoglycemia Protocol Glucagon (Glucagen Diagnostic Kit) 0 mg IM STAT PRN; Protocol PRN Reason: Hypoglycemia Protocol Meropenem 500 mg/ Sodium (Chloride) 100 mls @ 100 mls/hr IVPB Q8 [facility] PRN Reason: Protocol Last Admin: 04/09/18 22:25 Dose: 100 mls/hr Insulin Human Regular (Novolin R) 0 unit SC ACHS [facility] PRN Reason: Protocol Last Admin: 04/09/18 21:52 Dose: Not Given Midodrine (Proamatine) 5 mg PO TID [facility] Last Admin: 04/09/18 18:01 Dose: 5 mg Mupirocin (Bactroban Ointment) 0 gm TOP DAILY [facility] Last Admin: 04/09/18 09:00 Dose: 1 applic Pantoprazole Sodium (Protonix Ec Tab) 40 mg PO DAILY [facility] Last Admin: 04/09/18 09:37 Dose: 40 mg Saccharomyces Boulardii (Florastor) 250 mg PO Q12 [facility] Last Admin: 04/09/18 22:26 Dose: 250 mg - Labs Labs: 04/09/18 06:53 04/09/18 06:53 PT 13.3 SECONDS (9.7-12.2) H 04/02/18 15:25 INR 1.2 04/02/18 15:25 APTT 61 SECONDS (21-34) H D 04/07/18 06:14 Assessment and Plan - Assessment and Plan (Free Text) Assessment: This is a 72 year old male with PMHx of arthritis, history of colon polyps, kidney stones, renal insufficiency, glaucoma s/p partial colectomy brought by EMS as aptient fell out of his chair. Admitted for severe sepsis, septic shock 2 /2 bilateral lower extremity cellulitis, metabolic encephalopathy 2/2 ARF ( severe metabolic acidosis and uremia), and atrial fibrillation with RVR. Right PICC line placed 04/05 AMANDA 04/07- Plan: Neuro: [id number] A: AMS - RESOLVED - Head CT - negative A: Metabolic Encephalopathy - RESOLVED - Likely 2/2 uremia and severe metabolic acidosis from ARF Cardio: A: New Onset Atrial Fibrillation with RVR - rate controlled - ECHO: LVEF 60-65%, LVH, sclerotic trileaflet aortic valve - TSH, Free T4 - WNL - Was given digoxin, verapamil - Currently on OFF amio and verapamil drip - Now on Amio 200mg PO Q12 - Heparin drip started - will be discontinued 04/08--> Eliquis 5mg PO BID A: Hypotension - resolving - Stopped vaso; Currently on Midodrine ; tolerating well - Started LR @75cc GI: A: Diarrhea - RESOLVING - Started on vanco, flagyl - Cdiff negative, stool studies negative A: Cholelithiasis - CT chest/ab/pel: No evidence of pneumonia or empyema. Possible cholelithiasis. Correlate with ultrasound examination. Status post subtotal colectomy. Mural thickening of small bowel loops in the right lower quadrant. Nonspecific finding. Small hiatal hernia. Bilateral gynecomastia. Stable left adrenal adenoma. Small left renal cortical cyst. - Abdominal US: Cholelithiasis with prominent gallbladder calculus up to 2.3 cm at the neck of the gallbladde, additional calculus at the neck of the gallbladder measuring 1.3 cm. CBD 4.8mm. - T. bili now 0.8 A: Hx of Colon CA s/p subtotal colectomy? Endo: A: T2DM - Accuchecks, ISS - A1C 7.2 Renal: A: Acute Renal Failure with severe metabolic acidosis, hyperkalemia - RESOLVED -- Dr. Luna consulted - Right Shiley placed 04/02 - Received dialysis 04/02 - Started on Bicarb drip @ 75cc/hr - DC - HD TTS - SHILEY REMOVED 04/06 - no more dialysis at this time, renal function improving ID: A: Septic Shock -- ID consulted, Dr. Valdez -- Wound Care - 11/11 bilateral lower extremity cellulitis - BC grew Pasteurella, f/u repeat BC 04/07 - Wound Culture: Serratia Marcescens - Started on Meropenem 04/02/18 (VANCO was DC) A: + Blood Cultures - AMANDA 04/07 - r/o endocarditis A: Bilateral Lower Extremity Cellulitis -- Podiatry was consulted -- Wound care on board - Venous dopplers ordered - NEGATIVE FOR DVT - Xray - negative for osteo Heme/Onc: A: Anemia, thrombocytopenia - Baseline 11 - DDAVP given, albumin 25grms given, ASA, heparin held - Stool occult + - Hemoglobin is stabilizing 04/07 - stopped PPI Q12, now daily, resumed ASA, hep (will transition to Eliquis) - Continue to monitor Prophylaxis: - PPI - SCDs c/i, Heparin drip --> Eliquis - Florastor started - PT/ OT - POLST form filled out: Patient is DNR/DNI - Consent: Son Troy Bowden, , [place] [phone] - Case management for senior care placement - Right PICC Line - 04/05
[2018-04-10] MEDS: Meropenem 500 MG in Sodium Chloride 0.9% 100 ML IVPB SCH ×3 (05:48→21:35)
[2018-04-10 06:36] LABS: BASO % 0.3 % (0.0-2.0); EOS # 0.2 K/uL (0.0-0.7); EOS % 1.8 % (0.0-4.0); HEMOGLOBIN 8.8 g/dL (12.0-18.0); LYMPH # 0.6 K/uL (1.0-4.3); LYMPH % 6.9 % (20.0-40.0); MEAN CELL VOLUME 95.6 fL (80.0-94.0); MEAN CORPUSCULAR HEMOGLOBIN 32.1 pg (27.0-31.0); MEAN CORPUSCULAR HGB CONC 33.6 g/dL (33.0-37.0); MEAN PLATELET VOLUME 9.1 fL (7.2-11.7); MONO # 0.9 K/uL (0.0-0.8); MONO % 9.7 % (0.0-10.0); NEUT # 7.2 K/uL (1.8-7.0); NEUT % 81.3 % (50.0-75.0); PLATELET COUNT 125 K/uL (130-400); RBC 2.75 Mil/uL (4.40-5.90); RED CELL DISTRIBUTION WIDTH 14.8 % (11.5-14.5); WHITE BLOOD COUNT 8.8 K/uL (4.8-10.8)
[2018-04-10 06:53] LABS: ALB/GLOB RATIO 0.8 (1.0-2.1); ALBUMIN 2.2 g/dL (3.5-5.0); ALT/SGPT 24 U/L (21-72); AST/SGOT 13 U/L (17-59); BLOOD UREA NITROGEN 31 mg/dL (9-20); CALCIUM 7.5 mg/dl (8.6-10.4); GFR AFRICAN-AMERICAN > 60; GFR NON-AFRICAN AMERICAN 54
[2018-04-10] MEDS: (Novolin R) Insulin Human Regular 100 units/ml vial SC SCH ×4 (07:31→22:30)
[2018-04-10 08:46] LABS: BANDS 1 % (0-2); EOSINOPHIL 2 % (0-4); LYMPHOCYTE 5 % (20-40); MONOCYTE 1 % (0-10); NEUTROPHIL 91 % (50-75); TOTAL CELLS COUNTED 100
[2018-04-10 08:50] LABS: ANISOCYTOSIS SLIGHT; HYPOCHROMIC SLIGHT; PLATELET ESTIMATE SLIGHTLY DECREASED (NORMAL); POLYCHROMIC SLIGHT
[2018-04-10] MEDS: Saccharomyces Boulardi 250 mg Cap PO SCH ×2 (09:56→21:35)
[2018-04-10] MEDS: Pantoprazole 40 mg EC Tab PO SCH (09:56)
--- NOTE | 2018-04-10 12:09 | CP.PCM.PN ---
Subjective - Date & Time of Evaluation Date of Evaluation: 04/10/18 Time of Evaluation: 09:00 - Subjective Subjective: discussed on rounds appears depressed cont iv rx Objective - Vital Signs/Intake and Output Vital Signs (last 24 hours): Temp Pulse Resp BP Pulse Ox 97.8 F 99 H 20 114/66 96 04/10/18 07:00 04/10/18 07:00 04/10/18 07:00 04/10/18 07:00 04/10/18 07:00 Intake and Output: 04/10/18 04/10/18 06:59 18:59 Intake Total 510 Output Total 1 Balance 509 - Medications Medications: Current Medications Al Hydrox/Mg Hydrox/Simethicone (Maalox Plus 30 Ml) 30 ml PO Q4H PRN PRN Reason: Indigestion / Heartburn Last Admin: 04/06/18 14:50 Dose: 30 ml Amiodarone HCl (Cordarone) 200 mg PO Q12 [facility] Last Admin: 04/10/18 09:56 Dose: 200 mg Apixaban (Eliquis) 5 mg PO BID [facility] Last Admin: 04/10/18 09:56 Dose: 5 mg Aspirin (Aspirin Chewable) 81 mg PO DAILY [facility] Last Admin: 04/10/18 09:55 Dose: 81 mg Dextrose (Dextrose 50% Inj) 0 ml IV STAT PRN; Protocol PRN Reason: Hypoglycemia Protocol Dextrose (Glutose 15) 0 gm PO ONCE PRN; Protocol PRN Reason: Hypoglycemia Protocol Glucagon (Glucagen Diagnostic Kit) 0 mg IM STAT PRN; Protocol PRN Reason: Hypoglycemia Protocol Meropenem 500 mg/ Sodium (Chloride) 100 mls @ 100 mls/hr IVPB Q8 [facility] PRN Reason: Protocol Last Admin: 04/10/18 05:48 Dose: 100 mls/hr Insulin Human Regular (Novolin R) 0 unit SC ACHS [facility] PRN Reason: Protocol Last Admin: 04/10/18 07:31 Dose: Not Given Midodrine (Proamatine) 5 mg PO TID [facility] Last Admin: 04/10/18 09:55 Dose: 5 mg Mupirocin (Bactroban Ointment) 0 gm TOP DAILY [facility] Last Admin: 04/10/18 11:20 Dose: 1 applic Pantoprazole Sodium (Protonix Ec Tab) 40 mg PO DAILY [facility] Last Admin: 04/10/18 09:56 Dose: 40 mg Saccharomyces Boulardii (Florastor) 250 mg PO Q12 [facility] Last Admin: 04/10/18 09:56 Dose: 250 mg - Labs Labs: 04/10/18 06:25 04/10/18 06:25 PT 13.3 SECONDS (9.7-12.2) H 04/02/18 15:25 INR 1.2 04/02/18 15:25 APTT 61 SECONDS (21-34) H D 04/07/18 06:14 - Constitutional Appears: Non-toxic, Chronically Ill - Head Exam Head Exam: NORMOCEPHALIC - Eye Exam Eye Exam: PERRL - ENT Exam ENT Exam: Mucous Membranes Dry - Neck Exam Neck Exam: absent: Lymphadenopathy - Respiratory Exam Respiratory Exam: Decreased Breath Sounds - Cardiovascular Exam Cardiovascular Exam: REGULAR RHYTHM - GI/Abdominal Exam GI & Abdominal Exam: Soft - Rectal Exam Rectal Exam: Deferred - Exam Exam: NORMAL INSPECTION - Extremities Exam Extremities Exam: Pedal Edema - Back Exam Back Exam: absent: CVA tenderness (L), CVA tenderness (R) - Neurological Exam Neurological Exam: Alert Assessment and Plan (1) TERRENCE (acute kidney injury) Status: Acute (2) Sepsis associated hypotension Status: Acute (3) Atrial fibrillation Status: Acute (4) Cellulitis of right leg Status: Acute (5) Chronic kidney disease, stage III (moderate) Status: Acute (6) 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
--- NOTE | 2018-04-10 12:26 | CP.PCM.PN ---
Subjective - Date & Time of Evaluation Date of Evaluation: 04/10/18 Time of Evaluation: 12:24 - Subjective Subjective: appears depressed, anxious TERRENCE resolved HTN controlled remains on IV ABs, wound care Objective - Vital Signs/Intake and Output Vital Signs (last 24 hours): Temp Pulse Resp BP Pulse Ox 97.8 F 99 H 20 114/66 96 04/10/18 07:00 04/10/18 07:00 04/10/18 07:00 04/10/18 07:00 04/10/18 07:00 Intake and Output: 04/10/18 04/10/18 06:59 18:59 Intake Total 510 Output Total 1 Balance 509 - Medications Medications: Current Medications Al Hydrox/Mg Hydrox/Simethicone (Maalox Plus 30 Ml) 30 ml PO Q4H PRN PRN Reason: Indigestion / Heartburn Last Admin: 04/06/18 14:50 Dose: 30 ml Amiodarone HCl (Cordarone) 200 mg PO Q12 [facility] Last Admin: 04/10/18 09:56 Dose: 200 mg Apixaban (Eliquis) 5 mg PO BID [facility] Last Admin: 04/10/18 09:56 Dose: 5 mg Aspirin (Aspirin Chewable) 81 mg PO DAILY [facility] Last Admin: 04/10/18 09:55 Dose: 81 mg Dextrose (Dextrose 50% Inj) 0 ml IV STAT PRN; Protocol PRN Reason: Hypoglycemia Protocol Dextrose (Glutose 15) 0 gm PO ONCE PRN; Protocol PRN Reason: Hypoglycemia Protocol Glucagon (Glucagen Diagnostic Kit) 0 mg IM STAT PRN; Protocol PRN Reason: Hypoglycemia Protocol Meropenem 500 mg/ Sodium (Chloride) 100 mls @ 100 mls/hr IVPB Q8 [facility] PRN Reason: Protocol Last Admin: 04/10/18 05:48 Dose: 100 mls/hr Insulin Human Regular (Novolin R) 0 unit SC ACHS [facility] PRN Reason: Protocol Last Admin: 04/10/18 07:31 Dose: Not Given Midodrine (Proamatine) 5 mg PO TID [facility] Last Admin: 04/10/18 09:55 Dose: 5 mg Mupirocin (Bactroban Ointment) 0 gm TOP DAILY [facility] Last Admin: 04/10/18 11:20 Dose: 1 applic Pantoprazole Sodium (Protonix Ec Tab) 40 mg PO DAILY [facility] Last Admin: 04/10/18 09:56 Dose: 40 mg Saccharomyces Janicedii (Florastor) 250 mg PO Q12 [facility] Last Admin: 04/10/18 09:56 Dose: 250 mg - Labs Labs: 04/10/18 06:25 04/10/18 06:25 PT 13.3 SECONDS (9.7-12.2) H 04/02/18 15:25 INR 1.2 04/02/18 15:25 APTT 61 SECONDS (21-34) H D 04/07/18 06:14 - Constitutional Appears: No Acute Distress, Chronically Ill - Head Exam Head Exam: ATRAUMATIC, NORMAL INSPECTION - Eye Exam Eye Exam: EOMI, Normal appearance - Neck Exam Neck Exam: Normal Inspection. absent: Tenderness - Respiratory Exam Respiratory Exam: Clear to Ausculation Bilateral, NORMAL BREATHING PATTERN - Cardiovascular Exam Cardiovascular Exam: REGULAR RHYTHM, +S1 - GI/Abdominal Exam GI & Abdominal Exam: Soft. absent: Tenderness - Extremities Exam Extremities Exam: Normal Inspection. absent: Tenderness - Neurological Exam Neurological Exam: Awake, CN II-XII Intact - Skin Skin Exam: Dry, Warm Assessment and Plan (1) TERRENCE (acute kidney injury) Status: Acute (2) Sepsis associated hypotension Status: Acute (3) Cellulitis of right leg Status: Acute (4) Chronic kidney disease, stage III (moderate) Status: Acute (5) Metabolic acidemia Status: Acute - Assessment and Plan (Free Text) Plan: monitor renal function IV ABs wound care
--- NOTE | 2018-04-10 14:27 | CP.PCM.PN ---
Subjective - Date & Time of Evaluation Date of Evaluation: 04/10/18 Time of Evaluation: 10:00 - Subjective Subjective: Podiatry Progress Note - Dr. Aldridge 72 year old male was seen at bedside this morning with attending Dr. Aldridge for bilateral leg wounds. Pt is AAOx3 in NAD, resting comfortably in bed at time of visit. Dressings are dry/clean and intact. Patient denies any overnight acute events. Patient denies F/C/N/V/CP/SOB Objective - Vital Signs/Intake and Output Vital Signs (last 24 hours): Temp Pulse Resp BP Pulse Ox 97.8 F 99 H 20 114/66 96 04/10/18 07:00 04/10/18 07:00 04/10/18 07:00 04/10/18 07:00 04/10/18 07:00 Intake and Output: 04/10/18 04/10/18 06:59 18:59 Intake Total 510 Output Total 1 Balance 509 - Medications Medications: Current Medications Al Hydrox/Mg Hydrox/Simethicone (Maalox Plus 30 Ml) 30 ml PO Q4H PRN PRN Reason: Indigestion / Heartburn Last Admin: 04/06/18 14:50 Dose: 30 ml Amiodarone HCl (Cordarone) 200 mg PO Q12 [facility] Last Admin: 04/10/18 09:56 Dose: 200 mg Apixaban (Eliquis) 5 mg PO BID [facility] Last Admin: 04/10/18 09:56 Dose: 5 mg Aspirin (Aspirin Chewable) 81 mg PO DAILY [facility] Last Admin: 04/10/18 09:55 Dose: 81 mg Dextrose (Dextrose 50% Inj) 0 ml IV STAT PRN; Protocol PRN Reason: Hypoglycemia Protocol Dextrose (Glutose 15) 0 gm PO ONCE PRN; Protocol PRN Reason: Hypoglycemia Protocol Glucagon (Glucagen Diagnostic Kit) 0 mg IM STAT PRN; Protocol PRN Reason: Hypoglycemia Protocol Meropenem 500 mg/ Sodium (Chloride) 100 mls @ 100 mls/hr IVPB Q8 [facility] PRN Reason: Protocol Last Admin: 04/10/18 13:46 Dose: 100 mls/hr Insulin Human Regular (Novolin R) 0 unit SC ACHS [facility] PRN Reason: Protocol Last Admin: 04/10/18 12:25 Dose: 1 units Midodrine (Proamatine) 5 mg PO TID [facility] Last Admin: 04/10/18 13:05 Dose: 5 mg Mupirocin (Bactroban Ointment) 0 gm TOP DAILY [facility] Last Admin: 04/10/18 11:20 Dose: 1 applic Pantoprazole Sodium (Protonix Ec Tab) 40 mg PO DAILY [facility] Last Admin: 04/10/18 09:56 Dose: 40 mg Saccharomyces Boulardii (Florastor) 250 mg PO Q12 [facility] Last Admin: 04/10/18 09:56 Dose: 250 mg - Labs Labs: 04/10/18 06:25 04/10/18 06:25 PT 13.3 SECONDS (9.7-12.2) H 04/02/18 15:25 INR 1.2 04/02/18 15:25 APTT 61 SECONDS (21-34) H D 04/07/18 06:14 - Constitutional Appears: Well, Non-toxic, No Acute Distress - Extremities Exam Additional comments: Lower extremity focused exam: Derm: Multiple ulcerations noted circumferentially around the leg B/L. Erythema noted from the ankle joint to the tibial tuberosity B/L Left: Ulceration noted to the dorsal distal aspect of the anterior leg with irregular wound border, measuring approximately 5 cm x 4 cm x 0.3 cm, no probe to bone, 100% granular base, no malodor, no purulence, active sero-sanguineous drainage noted, no tunneling or tracking noted, periwound erythema, no clinical signs of infection. Multiple small ulcerations on lateral and posterior aspects of distal leg with regular borders, 100% fibrotic base, no probe to bone, serous drainage noted, no purulence, no tunneling or tracking noted, periwound erythema no clinical signs of infection. Right: Ulceration noted at the distal aspect of dorsal leg, irregular border measuring approximately 6 cm x 5 cm x .3, no probe to bone, fibrogranular base, no malodor noted, active sanguineous drainage noted, no tunneling or tracking noted, dion wound erythema, no clinical signs of infection noted. Vascular: Non-palpable DP and PT pulses secondary to pitting edema. +3 pitting edema to bilateral LE noted. CFT <3 secs noted to all digits, no pedal hair noted Neuro: protective sensation grossly diminished Ortho: Mild tenderness to palpation of leg ulceration sites - Neurological Exam Neurological Exam: Alert, Awake, Oriented x3 - Psychiatric Exam Psychiatric exam: Normal Affect, Normal Mood Assessment and Plan - Assessment and Plan (Free Text) Assessment: 72 y/o male seen by bedside for multiple, chronic ulcerations to bilateral legs Plan: Patient was seen and evaluated at bedside with Dr. Aldridge Bilateral leg ulcers cleaned with saline and dressed with xeroform, gauze, ABD pads and kerlix Podiatry to continue local wound care to legs- no surgical intervention planned at this time Multipodus boots to be kept on at all times in bed Stable from podiatry standpoint Podiatry will continue to follow patient while in house
--- NOTE | 2018-04-10 16:43 | CP.PCM.PN ---
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 Complaining of increasing pain this morning. He was not able to participate in physical therapy because of the pain. He is feeling well. Feeling tired weak. Patient in the past and received a hemodialysis. He is making urine. Diarrhea noted. Generalized edema noted Also having minimal diarrheal episodes. On examination: Vital signs reviewed Mild blood pressure noted. Chest good air entry bilaterally Regular heart sound Patient's labs reviewed abdomen soft nontender. Patient's labs reviewed in Low magnesium level noted supplemented Renal functions is improving I discussed with the patient's daughter about his condition. Family is currently agreeing for LTAC, possibly in the morning. Patient's family will discuss with the patient able that Assessment and recommendation: 72-year-old male with a history of renal insufficiency, renal stone disease, bilateral chronic leg edema, recurrent cellulitis, intestinal objection, status post adhesion lysis in the past, renal insufficiency, admitted now with the septic shock acute renal failure improving. Currently on hemodialysis. Receiving antibiotic. Patient had a septicemia due to gram-negative bacteremia. Currently on antibiotic. Will continue the current treatment. Podiatry, ID follow-up. Will follow-up the patient Objective - Vital Signs/Intake and Output Vital Signs (last 24 hours): Temp Pulse Resp BP Pulse Ox 97.7 F 104 H 20 90/46 L 96 04/10/18 15:30 04/10/18 15:30 04/10/18 15:30 04/10/18 15:30 04/10/18 15:30 Intake and Output: 04/10/18 04/10/18 06:59 18:59 Intake Total 510 250 Output Total 1 3 Balance 509 247 - Medications Medications: Current Medications Al Hydrox/Mg Hydrox/Simethicone (Maalox Plus 30 Ml) 30 ml PO Q4H PRN PRN Reason: Indigestion / Heartburn Last Admin: 04/06/18 14:50 Dose: 30 ml Amiodarone HCl (Cordarone) 200 mg PO Q12 [facility] Last Admin: 04/10/18 09:56 Dose: 200 mg Apixaban (Eliquis) 5 mg PO BID [facility] Last Admin: 04/10/18 09:56 Dose: 5 mg Aspirin (Aspirin Chewable) 81 mg PO DAILY [facility] Last Admin: 04/10/18 09:55 Dose: 81 mg Dextrose (Dextrose 50% Inj) 0 ml IV STAT PRN; Protocol PRN Reason: Hypoglycemia Protocol Dextrose (Glutose 15) 0 gm PO ONCE PRN; Protocol PRN Reason: Hypoglycemia Protocol Glucagon (Glucagen Diagnostic Kit) 0 mg IM STAT PRN; Protocol PRN Reason: Hypoglycemia Protocol Meropenem 500 mg/ Sodium (Chloride) 100 mls @ 100 mls/hr IVPB Q8 [facility] PRN Reason: Protocol Last Admin: 04/10/18 13:46 Dose: 100 mls/hr Magnesium Sulfate/Dextrose (Magnesium Sulfate 1 Gm/100 Ml D5w) 1 gm in 100 mls @ 200 mls/hr IVPB Q30M [facility] Stop: 04/10/18 17:44 Insulin Human Regular (Novolin R) 0 unit SC ACHS [facility] PRN Reason: Protocol Last Admin: 04/10/18 12:25 Dose: 1 units Mupirocin (Bactroban Ointment) 0 gm TOP DAILY [facility] Last Admin: 04/10/18 11:20 Dose: 1 applic Pantoprazole Sodium (Protonix Ec Tab) 40 mg PO DAILY [facility] Last Admin: 04/10/18 09:56 Dose: 40 mg Saccharomyces Boulardii (Florastor) 250 mg PO Q12 [facility] Last Admin: 04/10/18 09:56 Dose: 250 mg - Labs Labs: 04/10/18 06:25 04/10/18 06:25 PT 13.3 SECONDS (9.7-12.2) H 04/02/18 15:25 INR 1.2 04/02/18 15:25 APTT 61 SECONDS (21-34) H D 04/07/18 06:14
[2018-04-10] MEDS: Magnesium Sulfate 1 gm in D5W 1 GM/100 ML BAG IVPB SCH ×2 (17:18→18:02)
--- NOTE | 2018-04-10 23:38 | CP.PCM.PN ---
Subjective - Date & Time of Evaluation Date of Evaluation: 04/10/18 Time of Evaluation: 18:20 - Subjective Subjective: Patient seen and evaluated Denies chest pain and dypnea Review of Systems - Review of Systems Systems not reviewed;Unavailable: Altered Mental Status Review of Systems: Per son: - Constitutional Constitutional: Chills, Fever, Lethargy, Malaise - Cardiovascular Cardiovascular: absent: Chest Pain - Respiratory Respiratory: Dyspnea - Gastrointestinal Gastrointestinal: absent: Abdominal Pain - Genitourinary Genitourinary: absent: Dysuria Physical Exam - Constitutional Appears: In Acute Distress - Head Exam Head Exam: ATRAUMATIC, NORMAL INSPECTION - Eye Exam Eye Exam: EOMI Pupil Exam: PERRL - ENT Exam ENT Exam: Mucous Membranes Dry - Neck Exam Neck exam: Positive for: Normal Inspection - Respiratory Exam Respiratory Exam: Clear to Auscultation Bilateral, NORMAL BREATHING PATTERN. absent: Rales, Rhonchi, Wheezes - Cardiovascular Exam Cardiovascular Exam: Tachycardia, +S1, +S2. absent: JVD - GI/Abdominal Exam GI & Abdominal Exam: Diminished Bowel Sounds, Soft - Extremities Exam Extremities exam: Negative for: normal capillary refill - Neurological Exam Neurological exam: Alert Objective - Vital Signs/Intake and Output Vital Signs (last 24 hours): Temp Pulse Resp BP Pulse Ox 97.7 F 104 H 20 90/46 L 96 04/10/18 15:30 04/10/18 15:30 04/10/18 15:30 04/10/18 15:30 04/10/18 15:30 Intake and Output: 04/10/18 04/11/18 18:59 06:59 Intake Total 250 Output Total 3 Balance 247 - Medications Medications: Current Medications Al Hydrox/Mg Hydrox/Simethicone (Maalox Plus 30 Ml) 30 ml PO Q4H PRN PRN Reason: Indigestion / Heartburn Last Admin: 04/06/18 14:50 Dose: 30 ml Amiodarone HCl (Cordarone) 200 mg PO Q12 [facility] Last Admin: 04/10/18 21:35 Dose: 200 mg Apixaban (Eliquis) 5 mg PO BID [facility] Last Admin: 04/10/18 17:19 Dose: 5 mg Aspirin (Aspirin Chewable) 81 mg PO DAILY [facility] Last Admin: 04/10/18 09:55 Dose: 81 mg Dextrose (Dextrose 50% Inj) 0 ml IV STAT PRN; Protocol PRN Reason: Hypoglycemia Protocol Dextrose (Glutose 15) 0 gm PO ONCE PRN; Protocol PRN Reason: Hypoglycemia Protocol Glucagon (Glucagen Diagnostic Kit) 0 mg IM STAT PRN; Protocol PRN Reason: Hypoglycemia Protocol Meropenem 500 mg/ Sodium (Chloride) 100 mls @ 100 mls/hr IVPB Q8 [facility] PRN Reason: Protocol Last Admin: 04/10/18 21:35 Dose: 100 mls/hr Insulin Human Regular (Novolin R) 0 unit SC ACHS [facility] PRN Reason: Protocol Last Admin: 04/10/18 22:30 Dose: Not Given Mupirocin (Bactroban Ointment) 0 gm TOP DAILY [facility] Last Admin: 04/10/18 11:20 Dose: 1 applic Pantoprazole Sodium (Protonix Ec Tab) 40 mg PO DAILY [facility] Last Admin: 04/10/18 09:56 Dose: 40 mg Saccharomyces Boulardii (Florastor) 250 mg PO Q12 [facility] Last Admin: 04/10/18 21:35 Dose: 250 mg - Labs Labs: 04/10/18 06:25 04/10/18 06:25 PT 13.3 SECONDS (9.7-12.2) H 04/02/18 15:25 INR 1.2 04/02/18 15:25 APTT 61 SECONDS (21-34) H D 04/07/18 06:14 Assessment and Plan - Assessment and Plan (Free Text) Assessment: This is a 72 year old male with PMHx of arthritis, history of colon polyps, kidney stones, renal insufficiency, glaucoma s/p partial colectomy brought by EMS as aptient fell out of his chair. Admitted for severe sepsis, septic shock 2 /2 bilateral lower extremity cellulitis, metabolic encephalopathy 2/2 ARF ( severe metabolic acidosis and uremia), and atrial fibrillation with RVR. Right PICC line placed 04/05 AMANDA 04/07- Plan: Neuro: [id number] A: AMS - RESOLVED - Head CT - negative A: Metabolic Encephalopathy - RESOLVED - Likely 2/2 uremia and severe metabolic acidosis from ARF Cardio: A: New Onset Atrial Fibrillation with RVR - rate controlled - ECHO: LVEF 60-65%, LVH, sclerotic trileaflet aortic valve - TSH, Free T4 - WNL - Was given digoxin, verapamil - Currently on OFF amio and verapamil drip - Now on Amio 200mg PO Q12 - Heparin drip started - will be discontinued 04/08--> Eliquis 5mg PO BID A: Hypotension - resolving - Stopped vaso; Currently on Midodrine ; tolerating well - Started LR @75cc GI: A: Diarrhea - RESOLVING - Started on vanco, flagyl - Cdiff negative, stool studies negative A: Cholelithiasis - CT chest/ab/pel: No evidence of pneumonia or empyema. Possible cholelithiasis. Correlate with ultrasound examination. Status post subtotal colectomy. Mural thickening of small bowel loops in the right lower quadrant. Nonspecific finding. Small hiatal hernia. Bilateral gynecomastia. Stable left adrenal adenoma. Small left renal cortical cyst. - Abdominal US: Cholelithiasis with prominent gallbladder calculus up to 2.3 cm at the neck of the gallbladde, additional calculus at the neck of the gallbladder measuring 1.3 cm. CBD 4.8mm. - T. bili now 0.8 A: Hx of Colon CA s/p subtotal colectomy? Endo: A: T2DM - Accuchecks, ISS - A1C 7.2 Renal: A: Acute Renal Failure with severe metabolic acidosis, hyperkalemia - RESOLVED -- Dr. Luna consulted - Right Shiley placed 04/02 - Received dialysis 04/02 - Started on Bicarb drip @ 75cc/hr - DC - HD TTS - SHILEY REMOVED 04/06 - no more dialysis at this time, renal function improving ID: A: Septic Shock -- ID consulted, Dr. Valdez -- Wound Care - 2/2 bilateral lower extremity cellulitis - BC grew Pasteurella, f/u repeat BC 04/07 - Wound Culture: Serratia Marcescens - Started on Meropenem 04/02/18 (VANCO was DC) A: + Blood Cultures - AMANDA 04/07 - r/o endocarditis A: Bilateral Lower Extremity Cellulitis -- Podiatry was consulted -- Wound care on board - Venous dopplers ordered - NEGATIVE FOR DVT - Xray - negative for osteo Heme/Onc: A: Anemia, thrombocytopenia - Baseline 11 - DDAVP given, albumin 25grms given, ASA, heparin held - Stool occult + - Hemoglobin is stabilizing 04/07 - stopped PPI Q12, now daily, resumed ASA, hep (will transition to Eliquis) - Continue to monitor Prophylaxis: - PPI - SCDs c/i, Heparin drip --> Eliquis - Florastor started - PT/ OT - POLST form filled out: Patient is DNR/DNI - Consent: Fredo Bowden, , [place] [phone] - Case management for [facility]cf placement - Right PICC Line - 04/05
[2018-04-11] MEDS: Meropenem 500 MG in Sodium Chloride 0.9% 100 ML IVPB SCH ×3 (05:50→21:41)
[2018-04-11 07:50] LABS: BASO % 0.3 % (0.0-2.0); EOS # 0.2 K/uL (0.0-0.7); EOS % 1.6 % (0.0-4.0); HEMOGLOBIN 8.7 g/dL (12.0-18.0); LYMPH # 0.7 K/uL (1.0-4.3); LYMPH % 7.4 % (20.0-40.0); MEAN CELL VOLUME 96.4 fL (80.0-94.0); MEAN CORPUSCULAR HGB CONC 33.2 g/dL (33.0-37.0); MEAN PLATELET VOLUME 9.3 fL (7.2-11.7); MONO # 0.8 K/uL (0.0-0.8); MONO % 7.6 % (0.0-10.0); NEUT # 8.3 K/uL (1.8-7.0); NEUT % 83.1 % (50.0-75.0); NRBC % 0.1 % (0.0-2.0); PLATELET COUNT 142 K/uL (130-400); RBC 2.73 Mil/uL (4.40-5.90)
[2018-04-11 08:03] LABS: ALB/GLOB RATIO 0.9 (1.0-2.1); ALBUMIN 2.4 g/dL (3.5-5.0); CALCIUM 7.6 mg/dl (8.6-10.4)
[2018-04-11] MEDS: (Novolin R) Insulin Human Regular 100 units/ml vial SC SCH ×4 (08:48→22:00)
[2018-04-11 10:16] LABS: BANDS 1 % (0-2); BASOPHIL 1 % (0-2); EOSINOPHIL 3 % (0-4); LYMPHOCYTE 6 % (20-40); MONOCYTE 8 % (0-10); MYELOCYTE 1 % (0-0); NEUTROPHIL 80 % (50-75); TOTAL CELLS COUNTED 100
[2018-04-11 10:18] LABS: ANISOCYTOSIS SLIGHT; PLATELET ESTIMATE NORMAL (NORMAL)
[2018-04-11] MEDS: Pantoprazole 40 mg EC Tab PO SCH (10:22)
[2018-04-11] MEDS: Saccharomyces Boulardi 250 mg Cap PO SCH ×2 (10:22→21:42)
[2018-04-11] MEDS ORDERED: Potassium Chloride 20 mEq ER Tab PO ONE (10:30)
--- NOTE | 2018-04-11 10:51 | CP.PCM.PN ---
Subjective - Date & Time of Evaluation Date of Evaluation: 04/11/18 Time of Evaluation: 10:49 - Subjective Subjective: alert; appears same wound care being done now renal function, HTN stable phos low Objective - Vital Signs/Intake and Output Vital Signs (last 24 hours): Temp Pulse Resp BP Pulse Ox 97.6 F 89 20 99/59 L 96 04/11/18 07:00 04/11/18 07:36 04/11/18 07:00 04/11/18 07:00 04/11/18 07:00 Intake and Output: 04/11/18 04/11/18 06:59 18:59 Intake Total 250 Balance 250 - Medications Medications: Current Medications Al Hydrox/Mg Hydrox/Simethicone (Maalox Plus 30 Ml) 30 ml PO Q4H PRN PRN Reason: Indigestion / Heartburn Last Admin: 04/06/18 14:50 Dose: 30 ml Amiodarone HCl (Cordarone) 200 mg PO Q12 [facility] Last Admin: 04/11/18 10:22 Dose: 200 mg Apixaban (Eliquis) 5 mg PO BID [facility] Last Admin: 04/11/18 10:22 Dose: 5 mg Aspirin (Aspirin Chewable) 81 mg PO DAILY [facility] Last Admin: 04/11/18 10:22 Dose: 81 mg Dextrose (Dextrose 50% Inj) 0 ml IV STAT PRN; Protocol PRN Reason: Hypoglycemia Protocol Dextrose (Glutose 15) 0 gm PO ONCE PRN; Protocol PRN Reason: Hypoglycemia Protocol Glucagon (Glucagen Diagnostic Kit) 0 mg IM STAT PRN; Protocol PRN Reason: Hypoglycemia Protocol Meropenem 500 mg/ Sodium (Chloride) 100 mls @ 100 mls/hr IVPB Q8 [facility] PRN Reason: Protocol Last Admin: 04/11/18 05:50 Dose: 100 mls/hr Insulin Human Regular (Novolin R) 0 unit SC ACHS [facility] PRN Reason: Protocol Last Admin: 04/11/18 08:48 Dose: 3 units Mupirocin (Bactroban Ointment) 0 gm TOP DAILY [facility] Last Admin: 04/11/18 10:22 Dose: 1 applic Pantoprazole Sodium (Protonix Ec Tab) 40 mg PO DAILY [facility] Last Admin: 04/11/18 10:22 Dose: 40 mg Saccharomyces Boulardii (Florastor) 250 mg PO Q12 [facility] Last Admin: 04/11/18 10:22 Dose: 250 mg - Labs Labs: 04/11/18 07:41 04/11/18 07:41 PT 13.3 SECONDS (9.7-12.2) H 04/02/18 15:25 INR 1.2 04/02/18 15:25 APTT 61 SECONDS (21-34) H D 04/07/18 06:14 - Constitutional Appears: No Acute Distress, Chronically Ill - Head Exam Head Exam: ATRAUMATIC, NORMAL INSPECTION - Eye Exam Eye Exam: EOMI, Normal appearance - Neck Exam Neck Exam: Normal Inspection. absent: Tenderness - Respiratory Exam Respiratory Exam: Clear to Ausculation Bilateral, NORMAL BREATHING PATTERN - Cardiovascular Exam Cardiovascular Exam: REGULAR RHYTHM, +S1 - GI/Abdominal Exam GI & Abdominal Exam: Soft. absent: Tenderness - Extremities Exam Extremities Exam: Normal Inspection. absent: Tenderness - Neurological Exam Neurological Exam: Awake, CN II-XII Intact - Skin Skin Exam: Dry, Warm Assessment and Plan (1) TERRENCE (acute kidney injury) Status: Acute (2) Sepsis associated hypotension Status: Acute (3) Cellulitis of right leg Status: Acute (4) Chronic kidney disease, stage III (moderate) Status: Acute (5) Metabolic acidemia Status: Acute - Assessment and Plan (Free Text) Plan: replete k , phos monitor renal function
[2018-04-11] MEDS: Potassium & Sodium Phosphate PO SCH ×2 (11:11→17:36)
--- NOTE | 2018-04-11 12:02 | CP.PCM.PN ---
Subjective - Date & Time of Evaluation Date of Evaluation: 04/11/18 Time of Evaluation: 11:59 - Subjective Subjective: Podiatry Progress Note - Dr. Aldridge 72 year old male was seen at bedside this morning for bilateral leg wounds. Pt is AAOx3 in NAD, resting comfortably in bed at time of visit. Dressings are dry/ clean and intact. Patient denies any overnight acute events. Patient denies F/C/ N/V/CP/SOB Objective - Vital Signs/Intake and Output Vital Signs (last 24 hours): Temp Pulse Resp BP Pulse Ox 97.6 F 89 20 99/59 L 96 04/11/18 07:00 04/11/18 07:36 04/11/18 07:00 04/11/18 07:00 04/11/18 07:00 Intake and Output: 04/11/18 04/11/18 06:59 18:59 Intake Total 250 Balance 250 - Medications Medications: Current Medications Al Hydrox/Mg Hydrox/Simethicone (Maalox Plus 30 Ml) 30 ml PO Q4H PRN PRN Reason: Indigestion / Heartburn Last Admin: 04/06/18 14:50 Dose: 30 ml Amiodarone HCl (Cordarone) 200 mg PO Q12 [facility] Last Admin: 04/11/18 10:22 Dose: 200 mg Apixaban (Eliquis) 5 mg PO BID [facility] Last Admin: 04/11/18 10:22 Dose: 5 mg Aspirin (Aspirin Chewable) 81 mg PO DAILY [facility] Last Admin: 04/11/18 10:22 Dose: 81 mg Dextrose (Dextrose 50% Inj) 0 ml IV STAT PRN; Protocol PRN Reason: Hypoglycemia Protocol Dextrose (Glutose 15) 0 gm PO ONCE PRN; Protocol PRN Reason: Hypoglycemia Protocol Glucagon (Glucagen Diagnostic Kit) 0 mg IM STAT PRN; Protocol PRN Reason: Hypoglycemia Protocol Meropenem 500 mg/ Sodium (Chloride) 100 mls @ 100 mls/hr IVPB Q8 [facility] PRN Reason: Protocol Last Admin: 04/11/18 05:50 Dose: 100 mls/hr Insulin Human Regular (Novolin R) 0 unit SC ACHS [facility] PRN Reason: Protocol Last Admin: 04/11/18 08:48 Dose: 3 units Mupirocin (Bactroban Ointment) 0 gm TOP DAILY [facility] Last Admin: 04/11/18 10:22 Dose: 1 applic Pantoprazole Sodium (Protonix Ec Tab) 40 mg PO DAILY [facility] Last Admin: 04/11/18 10:22 Dose: 40 mg Potassium Phos/Sodium Phos (Neutra-Phos) 1 pkt PO BID [facility] Stop: 04/15/18 12:00 Saccharomyces Boestrellitadii (Florastor) 250 mg PO Q12 [facility] Last Admin: 04/11/18 10:22 Dose: 250 mg - Labs Labs: 04/11/18 07:41 04/11/18 07:41 PT 13.3 SECONDS (9.7-12.2) H 04/02/18 15:25 INR 1.2 04/02/18 15:25 APTT 61 SECONDS (21-34) H D 04/07/18 06:14 - Constitutional Appears: Well, Non-toxic, No Acute Distress - Extremities Exam Additional comments: Lower extremity focused exam: Derm: Multiple ulcerations noted circumferentially around the leg B/L. Erythema noted from the ankle joint to the tibial tuberosity B/L Left: Ulceration noted to the dorsal distal aspect of the anterior leg with irregular wound border, measuring approximately 5 cm x 4 cm x 0.3 cm, no probe to bone, 100% granular base, no malodor, no purulence, active sero-sanguineous drainage noted, no tunneling or tracking noted, periwound erythema, no clinical signs of infection. Multiple small ulcerations on lateral and posterior aspects of distal leg with regular borders, 100% fibrotic base, no probe to bone, serous drainage noted, no purulence, no tunneling or tracking noted, periwound erythema no clinical signs of infection. Right: Ulceration noted at the distal aspect of dorsal leg, irregular border measuring approximately 6 cm x 5 cm x .3, no probe to bone, fibrogranular base, no malodor noted, active sanguineous drainage noted, no tunneling or tracking noted, dion wound erythema, no clinical signs of infection noted. Vascular: Non-palpable DP and PT pulses secondary to pitting edema. +3 pitting edema to bilateral LE noted. CFT <3 secs noted to all digits, no pedal hair noted Neuro: protective sensation grossly diminished Ortho: Mild tenderness to palpation of leg ulceration sites - Neurological Exam Neurological Exam: Alert, Awake, Oriented x3 - Psychiatric Exam Psychiatric exam: Normal Affect, Normal Mood Assessment and Plan - Assessment and Plan (Free Text) Assessment: 72 year old male patient was evaluated for multiple, chronic ulcerations to bilateral legs Plan: Patient was seen and evaluated Discussed plan with attending Dr. Aldridge Bilateral leg ulcers cleaned with saline and dressed with xeroform, gauze, ABD pads and kerlix Podiatry to continue local wound care to legs- no surgical intervention planned at this time Multipodus boots to be kept on at all times in bed Stable from podiatry standpoint Podiatry will continue to follow patient while in house
--- NOTE | 2018-04-11 20:44 | CP.PCM.PN ---
Subjective - Date & Time of Evaluation Date of Evaluation: 04/11/18 Time of Evaluation: 13:10 - Subjective Subjective: Patient seen and evaluated Denies chest pain and dypnea Review of Systems - Review of Systems Systems not reviewed;Unavailable: Altered Mental Status Review of Systems: Per son: - Constitutional Constitutional: Chills, Fever, Lethargy, Malaise - Cardiovascular Cardiovascular: absent: Chest Pain - Respiratory Respiratory: Dyspnea - Gastrointestinal Gastrointestinal: absent: Abdominal Pain - Genitourinary Genitourinary: absent: Dysuria Physical Exam - Constitutional Appears: In Acute Distress - Head Exam Head Exam: ATRAUMATIC, NORMAL INSPECTION - Eye Exam Eye Exam: EOMI Pupil Exam: PERRL - ENT Exam ENT Exam: Mucous Membranes Dry - Neck Exam Neck exam: Positive for: Normal Inspection - Respiratory Exam Respiratory Exam: Clear to Auscultation Bilateral, NORMAL BREATHING PATTERN. absent: Rales, Rhonchi, Wheezes - Cardiovascular Exam Cardiovascular Exam: Tachycardia, +S1, +S2. absent: JVD - GI/Abdominal Exam GI & Abdominal Exam: Diminished Bowel Sounds, Soft - Extremities Exam Extremities exam: Negative for: normal capillary refill - Neurological Exam Neurological exam: Alert Objective - Vital Signs/Intake and Output Vital Signs (last 24 hours): Temp Pulse Resp BP Pulse Ox 98.3 F 92 H 19 104/63 98 04/11/18 16:00 04/11/18 16:00 04/11/18 16:00 04/11/18 16:00 04/11/18 16:00 - Medications Medications: Current Medications Amiodarone HCl (Cordarone) 200 mg PO Q12 [facility] Last Admin: 04/11/18 10:22 Dose: 200 mg Apixaban (Eliquis) 5 mg PO BID [facility] Last Admin: 04/11/18 17:36 Dose: 5 mg Aspirin (Aspirin Chewable) 81 mg PO DAILY [facility] Last Admin: 04/11/18 10:22 Dose: 81 mg Dextrose (Dextrose 50% Inj) 0 ml IV STAT PRN; Protocol PRN Reason: Hypoglycemia Protocol Dextrose (Glutose 15) 0 gm PO ONCE PRN; Protocol PRN Reason: Hypoglycemia Protocol Glucagon (Glucagen Diagnostic Kit) 0 mg IM STAT PRN; Protocol PRN Reason: Hypoglycemia Protocol Meropenem 500 mg/ Sodium (Chloride) 100 mls @ 100 mls/hr IVPB Q8 [facility] PRN Reason: Protocol Last Admin: 04/11/18 14:12 Dose: 100 mls/hr Insulin Human Regular (Novolin R) 0 unit SC ACHS [facility] PRN Reason: Protocol Last Admin: 04/11/18 17:38 Dose: Not Given Mupirocin (Bactroban Ointment) 0 gm TOP DAILY [facility] Last Admin: 04/11/18 10:22 Dose: 1 applic Pantoprazole Sodium (Protonix Ec Tab) 40 mg PO DAILY [facility] Last Admin: 04/11/18 10:22 Dose: 40 mg Potassium Phos/Sodium Phos (Neutra-Phos) 1 pkt PO BID [facility] Stop: 04/15/18 12:00 Last Admin: 04/11/18 17:36 Dose: 1 pkt Saccharomyces Boulardii (Florastor) 250 mg PO Q12 [facility] Last Admin: 04/11/18 10:22 Dose: 250 mg - Labs Labs: 04/11/18 07:41 04/11/18 07:41 PT 13.3 SECONDS (9.7-12.2) H 04/02/18 15:25 INR 1.2 04/02/18 15:25 APTT 61 SECONDS (21-34) H D 04/07/18 06:14 Assessment and Plan - Assessment and Plan (Free Text) Assessment: This is a 72 year old male with PMHx of arthritis, history of colon polyps, kidney stones, renal insufficiency, glaucoma s/p partial colectomy brought by EMS as aptient fell out of his chair. Admitted for severe sepsis, septic shock 2 /2 bilateral lower extremity cellulitis, metabolic encephalopathy 2/2 ARF ( severe metabolic acidosis and uremia), and atrial fibrillation with RVR. Right PICC line placed 04/05 AMANDA 04/07- Plan: Neuro: GCS15 A: AMS - RESOLVED - Head CT - negative A: Metabolic Encephalopathy - RESOLVED - Likely 2/2 uremia and severe metabolic acidosis from ARF Cardio: A: New Onset Atrial Fibrillation with RVR - rate controlled - ECHO: LVEF 60-65%, LVH, sclerotic trileaflet aortic valve - TSH, Free T4 - WNL - Was given digoxin, verapamil - Currently on OFF amio and verapamil drip - Now on Amio 200mg PO Q12 - Heparin drip started - will be discontinued 04/08--> Eliquis 5mg PO BID A: Hypotension - resolving - Stopped vaso; Currently on Midodrine ; tolerating well - Started LR @75cc GI: A: Diarrhea - RESOLVING - Started on vanco, flagyl - Cdiff negative, stool studies negative A: Cholelithiasis - CT chest/ab/pel: No evidence of pneumonia or empyema. Possible cholelithiasis. Correlate with ultrasound examination. Status post subtotal colectomy. Mural thickening of small bowel loops in the right lower quadrant. Nonspecific finding. Small hiatal hernia. Bilateral gynecomastia. Stable left adrenal adenoma. Small left renal cortical cyst. - Abdominal US: Cholelithiasis with prominent gallbladder calculus up to 2.3 cm at the neck of the gallbladde, additional calculus at the neck of the gallbladder measuring 1.3 cm. CBD 4.8mm. - T. bili now 0.8 A: Hx of Colon CA s/p subtotal colectomy? Endo: A: T2DM - Accuchecks, ISS - A1C 7.2 Renal: A: Acute Renal Failure with severe metabolic acidosis, hyperkalemia - RESOLVED -- Dr. Luna consulted - Right Shiley placed 04/02 - Received dialysis 04/02 - Started on Bicarb drip @ 75cc/hr - DC - HD TTS - SHILEY REMOVED 04/06 - no more dialysis at this time, renal function improving ID: A: Septic Shock -- ID consulted, Dr. Valdez -- Wound Care - 11/11 bilateral lower extremity cellulitis - BC grew Pasteurella, f/u repeat BC 04/07 - Wound Culture: Serratia Marcescens - Started on Meropenem 04/02/18 (VANCO was DC) A: + Blood Cultures - AMANDA 04/07 - r/o endocarditis A: Bilateral Lower Extremity Cellulitis -- Podiatry was consulted -- Wound care on board - Venous dopplers ordered - NEGATIVE FOR DVT - Xray - negative for osteo Heme/Onc: A: Anemia, thrombocytopenia - Baseline 11 - DDAVP given, albumin 25grms given, ASA, heparin held - Stool occult + - Hemoglobin is stabilizing 04/07 - stopped PPI Q12, now daily, resumed ASA, hep (will transition to Eliquis) - Continue to monitor Prophylaxis: - PPI - SCDs c/i, Heparin drip --> Eliquis - Florastor started - PT/ OT - POLST form filled out: Patient is DNR/DNI - Consent: Son Troy Bowden, , [place] [phone] - Case management for half-way placement - Right PICC Line - 04/05
--- NOTE | 2018-04-11 20:52 | CP.PCM.PN ---
Subjective - Date & Time of Evaluation Date of Evaluation: 04/11/18 Time of Evaluation: 20:52 - Subjective Subjective: Patient is today feeling better. Eating better. The swelling in the arm slightly less than before. Diarrhea still persistently noted. He is very concerned about that. Weakness noted. Patient is making good urine On examination: Vital signs stable. Chest bilateral good air entry. Regular heart sound noted. Abdominal tenderness negative. Edema less Labs reviewed Potassium, magnesium supplemented. Assessment and recommendation: 72-year-old male with history of renal insufficiency, kidney stone disease, bilateral pedal edema, cellulitis recurrent, history of intestinal obstruction, status post additional lysis in the past. Admitted with acute sepsis, acute renal failure, improving now. On antibiotic. Continue the current treatment. Podiatry, infectious disease evaluation and management. I discussed with the patient's family yesterday. For possible LTAC evaluation and management. Currently awaiting for the patient to agree. Will follow the patient Objective - Vital Signs/Intake and Output Vital Signs (last 24 hours): Temp Pulse Resp BP Pulse Ox 98.3 F 92 H 19 104/63 98 04/11/18 16:00 04/11/18 16:00 04/11/18 16:00 04/11/18 16:00 04/11/18 16:00 - Medications Medications: Current Medications Amiodarone HCl (Cordarone) 200 mg PO Q12 [facility] Last Admin: 04/11/18 10:22 Dose: 200 mg Apixaban (Eliquis) 5 mg PO BID [facility] Last Admin: 04/11/18 17:36 Dose: 5 mg Aspirin (Aspirin Chewable) 81 mg PO DAILY [facility] Last Admin: 04/11/18 10:22 Dose: 81 mg Dextrose (Dextrose 50% Inj) 0 ml IV STAT PRN; Protocol PRN Reason: Hypoglycemia Protocol Dextrose (Glutose 15) 0 gm PO ONCE PRN; Protocol PRN Reason: Hypoglycemia Protocol Glucagon (Glucagen Diagnostic Kit) 0 mg IM STAT PRN; Protocol PRN Reason: Hypoglycemia Protocol Meropenem 500 mg/ Sodium (Chloride) 100 mls @ 100 mls/hr IVPB Q8 [facility] PRN Reason: Protocol Last Admin: 04/11/18 14:12 Dose: 100 mls/hr Insulin Human Regular (Novolin R) 0 unit SC ACHS [facility] PRN Reason: Protocol Last Admin: 04/11/18 17:38 Dose: Not Given Mupirocin (Bactroban Ointment) 0 gm TOP DAILY [facility] Last Admin: 04/11/18 10:22 Dose: 1 applic Pantoprazole Sodium (Protonix Ec Tab) 40 mg PO DAILY [facility] Last Admin: 04/11/18 10:22 Dose: 40 mg Potassium Phos/Sodium Phos (Neutra-Phos) 1 pkt PO BID [facility] Stop: 04/15/18 12:00 Last Admin: 04/11/18 17:36 Dose: 1 pkt Saccharomyces Boulardii (Florastor) 250 mg PO Q12 [facility] Last Admin: 04/11/18 10:22 Dose: 250 mg - Labs Labs: 04/11/18 07:41 04/11/18 07:41 PT 13.3 SECONDS (9.7-12.2) H 04/02/18 15:25 INR 1.2 04/02/18 15:25 APTT 61 SECONDS (21-34) H D 04/07/18 06:14
[2018-04-12] MEDS: Meropenem 500 MG in Sodium Chloride 0.9% 100 ML IVPB SCH ×4 (06:14→21:27)
[2018-04-12 06:30] LABS: BASO % 0.4 % (0.0-2.0); EOS # 0.2 K/uL (0.0-0.7); EOS % 1.6 % (0.0-4.0); HEMOGLOBIN 8.6 g/dL (12.0-18.0); LYMPH # 0.8 K/uL (1.0-4.3); MEAN CELL VOLUME 95.8 fL (80.0-94.0); MEAN CORPUSCULAR HEMOGLOBIN 31.7 pg (27.0-31.0); MEAN CORPUSCULAR HGB CONC 33.1 g/dL (33.0-37.0); MEAN PLATELET VOLUME 8.9 fL (7.2-11.7); MONO # 0.7 K/uL (0.0-0.8); MONO % 7.2 % (0.0-10.0); NEUT # 8.4 K/uL (1.8-7.0); NEUT % 82.8 % (50.0-75.0); NRBC % 0.1 % (0.0-2.0); PLATELET COUNT 181 K/uL (130-400); RBC 2.72 Mil/uL (4.40-5.90); RED CELL DISTRIBUTION WIDTH 15.1 % (11.5-14.5); WHITE BLOOD COUNT 10.1 K/uL (4.8-10.8)
[2018-04-12 06:45] LABS: ALB/GLOB RATIO 0.9 (1.0-2.1); ALBUMIN 2.4 g/dL (3.5-5.0); ALT/SGPT 30 U/L (21-72); AST/SGOT 14 U/L (17-59); BLOOD UREA NITROGEN 20 mg/dL (9-20); CALCIUM 7.8 mg/dl (8.6-10.4); GFR AFRICAN-AMERICAN > 60; GFR NON-AFRICAN AMERICAN 54
[2018-04-12] MEDS: (Novolin R) Insulin Human Regular 100 units/ml vial SC SCH ×4 (08:10→21:22)
[2018-04-12 08:44] LABS: BANDS 2 % (0-2); EOSINOPHIL 2 % (0-4); LYMPHOCYTE 5 % (20-40); METAMYELOCYTE 1 % (0-0); MONOCYTE 3 % (0-10); NEUTROPHIL 87 % (50-75); PLATELET ESTIMATE NORMAL (NORMAL); TOTAL CELLS COUNTED 100
[2018-04-12 08:45] LABS: ANISOCYTOSIS SLIGHT
[2018-04-12 08:49] LABS: HYPOCHROMIC SLIGHT; LARGE PLATELETS PRESENT; POLYCHROMIC SLIGHT; TOXIC GRANULATION PRESENT
[2018-04-12] MEDS: Pantoprazole 40 mg EC Tab PO SCH (09:47)
[2018-04-12] MEDS: Saccharomyces Boulardi 250 mg Cap PO SCH ×2 (09:47→21:24)
[2018-04-12] MEDS: Potassium & Sodium Phosphate PO SCH ×2 (09:48→17:48)
--- NOTE | 2018-04-12 16:35 | CP.PCM.PN ---
Subjective - Date & Time of Evaluation Date of Evaluation: 04/12/18 Time of Evaluation: 16:33 - Subjective Subjective: Podiatry Progress Note - Dr. Aldridge 72 year old male was seen at bedside this morning for bilateral leg wounds. Pt is AAOx3 in NAD, resting comfortably in bed at time of visit. Dressings are dry/ clean and intact. Patient states he still continues to have uncontrolled diarrhea. Patient denies any overnight acute events. Patient denies F/C/N/V/CP/ SOB Objective - Vital Signs/Intake and Output Vital Signs (last 24 hours): Temp Pulse Resp BP Pulse Ox 98.1 F 96 H 20 98/62 L 98 04/12/18 15:00 04/12/18 15:00 04/12/18 15:00 04/12/18 15:00 04/12/18 15:00 Intake and Output: 04/12/18 04/12/18 06:59 18:59 Intake Total 300 Balance 300 - Medications Medications: Current Medications Amiodarone HCl (Cordarone) 200 mg PO Q12 [facility] Last Admin: 04/12/18 09:48 Dose: 200 mg Apixaban (Eliquis) 5 mg PO BID [facility] Last Admin: 04/12/18 09:48 Dose: 5 mg Aspirin (Aspirin Chewable) 81 mg PO DAILY [facility] Last Admin: 04/12/18 09:47 Dose: 81 mg Dextrose (Dextrose 50% Inj) 0 ml IV STAT PRN; Protocol PRN Reason: Hypoglycemia Protocol Dextrose (Glutose 15) 0 gm PO ONCE PRN; Protocol PRN Reason: Hypoglycemia Protocol Glucagon (Glucagen Diagnostic Kit) 0 mg IM STAT PRN; Protocol PRN Reason: Hypoglycemia Protocol Meropenem 500 mg/ Sodium (Chloride) 100 mls @ 100 mls/hr IVPB Q8 [facility] PRN Reason: Protocol Last Admin: 04/12/18 13:55 Dose: 100 mls/hr Insulin Human Regular (Novolin R) 0 unit SC ACHS [facility] PRN Reason: Protocol Last Admin: 04/12/18 12:30 Dose: 1 units Mupirocin (Bactroban Ointment) 0 gm TOP DAILY [facility] Last Admin: 04/12/18 09:49 Dose: 1 applic Pantoprazole Sodium (Protonix Ec Tab) 40 mg PO DAILY [facility] Last Admin: 04/12/18 09:47 Dose: 40 mg Potassium Phos/Sodium Phos (Neutra-Phos) 1 pkt PO BID [facility] Stop: 04/15/18 12:00 Last Admin: 04/12/18 09:48 Dose: 1 pkt Saccharomyces Boulardii (Florastor) 250 mg PO Q12 [facility] Last Admin: 04/12/18 09:47 Dose: 250 mg - Labs Labs: 04/12/18 06:25 04/12/18 06:25 PT 13.3 SECONDS (9.7-12.2) H 04/02/18 15:25 INR 1.2 04/02/18 15:25 APTT 61 SECONDS (21-34) H D 04/07/18 06:14 - Constitutional Appears: Well, Non-toxic, No Acute Distress - Head Exam Head Exam: ATRAUMATIC, NORMOCEPHALIC - Extremities Exam Additional comments: Lower extremity focused exam: Derm: Multiple ulcerations noted circumferentially around the leg B/L. Erythema noted from the ankle joint to the tibial tuberosity B/L Left: Ulceration noted to the dorsal distal aspect of the anterior leg with irregular wound border, measuring approximately 5 cm x 4 cm x 0.3 cm, no probe to bone, 100% granular base, no malodor, no purulence, active sero-sanguineous drainage noted, no tunneling or tracking noted, periwound erythema, no clinical signs of infection. Multiple small ulcerations on lateral and posterior aspects of distal leg with regular borders, 100% fibrotic base, no probe to bone, serous drainage noted, no purulence, no tunneling or tracking noted, periwound erythema no clinical signs of infection. Right: Ulceration noted at the distal aspect of dorsal leg, irregular border measuring approximately 6 cm x 5 cm x .3, no probe to bone, fibrogranular base, no malodor noted, active sanguineous drainage noted, no tunneling or tracking noted, dion wound erythema, no clinical signs of infection noted. Vascular: Non-palpable DP and PT pulses secondary to pitting edema. +3 pitting edema to bilateral LE noted. CFT <3 secs noted to all digits, no pedal hair noted Neuro: protective sensation grossly diminished Ortho: Mild tenderness to palpation of leg ulceration sites - Neurological Exam Neurological Exam: Alert, Awake, Oriented x3 - Psychiatric Exam Psychiatric exam: Normal Affect, Normal Mood Assessment and Plan - Assessment and Plan (Free Text) Assessment: 72 year old male patient was evaluated for multiple, chronic ulcerations to bilateral legs Plan: Patient was seen and evaluated Discussed plan with attending Dr. Aldridge Bilateral leg ulcers cleaned with saline and dressed with xeroform, gauze, ABD pads and kerlix Podiatry to continue local wound care to legs- no surgical intervention planned at this time Multipodus boots to be kept on at all times in bed Stable from podiatry standpoint Podiatry will continue to follow patient while in house
--- NOTE | 2018-04-12 23:51 | CP.PCM.PN ---
Subjective - Date & Time of Evaluation Date of Evaluation: 04/12/18 Time of Evaluation: 23:51 - Subjective Subjective: Patient is now still having episodes of diarrhea. But comfortable otherwise. Eating well. He is concerned about the persistent diarrhea. On examination: Vital signs stable. Chest bilateral good air entry no wheezing or rales noted irregular heart sound nontender abdomen extent is edema bilaterally noted Patient's labs reviewed Nonspecific. Mild elevation of the BUN/creatinine, but better than in the past. Patient has a multiple gram-negative bacteremia. On antibiotic. We will continue Augmentin. Patient has up pasteurellosis septicemia. For which we'll continue Augmentin. Will follow-up the patient Objective - Vital Signs/Intake and Output Vital Signs (last 24 hours): Temp Pulse Resp BP Pulse Ox 98.1 F 92 H 20 98/62 L 98 04/12/18 15:00 04/12/18 18:00 04/12/18 15:00 04/12/18 15:00 04/12/18 15:00 Intake and Output: 04/12/18 04/13/18 18:59 06:59 Intake Total 300 Balance 300 - Medications Medications: Current Medications Amiodarone HCl (Cordarone) 200 mg PO Q12 [facility] Last Admin: 04/12/18 21:24 Dose: 200 mg Apixaban (Eliquis) 5 mg PO BID [facility] Last Admin: 04/12/18 18:00 Dose: 5 mg Aspirin (Aspirin Chewable) 81 mg PO DAILY [facility] Last Admin: 04/12/18 09:47 Dose: 81 mg Dextrose (Dextrose 50% Inj) 0 ml IV STAT PRN; Protocol PRN Reason: Hypoglycemia Protocol Dextrose (Glutose 15) 0 gm PO ONCE PRN; Protocol PRN Reason: Hypoglycemia Protocol Glucagon (Glucagen Diagnostic Kit) 0 mg IM STAT PRN; Protocol PRN Reason: Hypoglycemia Protocol Meropenem 500 mg/ Sodium (Chloride) 100 mls @ 100 mls/hr IVPB Q8 [facility] PRN Reason: Protocol Last Admin: 04/12/18 21:27 Dose: Not Given Insulin Human Regular (Novolin R) 0 unit SC ACHS [facility] PRN Reason: Protocol Last Admin: 04/12/18 21:22 Dose: Not Given Mupirocin (Bactroban Ointment) 0 gm TOP DAILY [facility] Last Admin: 04/12/18 09:49 Dose: 1 applic Pantoprazole Sodium (Protonix Ec Tab) 40 mg PO DAILY [facility] Last Admin: 04/12/18 09:47 Dose: 40 mg Potassium Phos/Sodium Phos (Neutra-Phos) 1 pkt PO BID [facility] Stop: 04/15/18 12:00 Last Admin: 04/12/18 17:48 Dose: 1 pkt Saccharomyces Boulardii (Florastor) 250 mg PO Q12 [facility] Last Admin: 04/12/18 21:24 Dose: 250 mg - Labs Labs: 04/12/18 06:25 04/12/18 06:25 PT 13.3 SECONDS (9.7-12.2) H 04/02/18 15:25 INR 1.2 04/02/18 15:25 APTT 61 SECONDS (21-34) H D 04/07/18 06:14
[2018-04-13] MEDS: Meropenem 500 MG in Sodium Chloride 0.9% 100 ML IVPB SCH ×3 (05:46→21:25)
[2018-04-13] MEDS: (Novolin R) Insulin Human Regular 100 units/ml vial SC SCH ×4 (08:30→21:50)
[2018-04-13] MEDS ORDERED: Amoxicillin-Clav 875-125 mg Tab PO SCH (10:00)
--- NOTE | 2018-04-13 10:05 | CP.PCM.PN ---
Subjective - Date & Time of Evaluation Date of Evaluation: 04/13/18 Time of Evaluation: 10:03 - Subjective Subjective: alert, wounds reportedly improving has increased diarrhea renal function has stabilized lytes acceptable Objective - Vital Signs/Intake and Output Vital Signs (last 24 hours): Temp Pulse Resp BP Pulse Ox 97.3 F L 91 H 20 97/61 L 98 04/13/18 07:00 04/13/18 07:25 04/13/18 07:00 04/13/18 07:00 04/13/18 07:00 - Medications Medications: Current Medications Amiodarone HCl (Cordarone) 200 mg PO Q12 [facility] Last Admin: 04/12/18 21:24 Dose: 200 mg Amoxicillin/Clavulanate Potassium (Augmentin 875 Mg-125 Mg Tab) 1 tab PO Q12H [facility] PRN Reason: Protocol Apixaban (Eliquis) 5 mg PO BID [facility] Last Admin: 04/12/18 18:00 Dose: 5 mg Aspirin (Aspirin Chewable) 81 mg PO DAILY [facility] Last Admin: 04/12/18 09:47 Dose: 81 mg Dextrose (Dextrose 50% Inj) 0 ml IV STAT PRN; Protocol PRN Reason: Hypoglycemia Protocol Dextrose (Glutose 15) 0 gm PO ONCE PRN; Protocol PRN Reason: Hypoglycemia Protocol Glucagon (Glucagen Diagnostic Kit) 0 mg IM STAT PRN; Protocol PRN Reason: Hypoglycemia Protocol Meropenem 500 mg/ Sodium (Chloride) 100 mls @ 100 mls/hr IVPB Q8 [facility] PRN Reason: Protocol Last Admin: 04/13/18 05:46 Dose: 100 mls/hr Insulin Human Regular (Novolin R) 0 unit SC ACHS [facility] PRN Reason: Protocol Last Admin: 04/12/18 21:22 Dose: Not Given Mupirocin (Bactroban Ointment) 0 gm TOP DAILY [facility] Last Admin: 04/12/18 09:49 Dose: 1 applic Pantoprazole Sodium (Protonix Ec Tab) 40 mg PO DAILY [facility] Last Admin: 04/12/18 09:47 Dose: 40 mg Saccharomyces Boulardii (Florastor) 250 mg PO Q12 [facility] Last Admin: 04/12/18 21:24 Dose: 250 mg - Labs Labs: 04/12/18 06:25 04/12/18 06:25 PT 13.3 SECONDS (9.7-12.2) H 06/24/18 15:25 INR 1.2 04/02/18 15:25 APTT 61 SECONDS (21-34) H D 04/07/18 06:14 - Constitutional Appears: No Acute Distress, Chronically Ill - Head Exam Head Exam: ATRAUMATIC, NORMAL INSPECTION - Eye Exam Eye Exam: EOMI, Normal appearance - Neck Exam Neck Exam: Normal Inspection. absent: Tenderness - Respiratory Exam Respiratory Exam: Clear to Ausculation Bilateral, NORMAL BREATHING PATTERN - Cardiovascular Exam Cardiovascular Exam: REGULAR RHYTHM, +S1 - GI/Abdominal Exam GI & Abdominal Exam: Soft. absent: Tenderness - Extremities Exam Extremities Exam: Pedal Edema, Tenderness - Neurological Exam Neurological Exam: Alert, CN II-XII Intact - Skin Skin Exam: Dry, Warm Assessment and Plan (1) TERRENCE (acute kidney injury) Status: Acute (2) Sepsis associated hypotension Status: Acute (3) Cellulitis of right leg Status: Acute (4) Chronic kidney disease, stage III (moderate) Status: Acute (5) Metabolic acidemia Status: Acute - Assessment and Plan (Free Text) Plan: renal function stable, lytes acceptable Will see again as needed
[2018-04-13] MEDS: Pantoprazole 40 mg EC Tab PO SCH (10:23)
[2018-04-13] MEDS: Saccharomyces Boulardi 250 mg Cap PO SCH ×2 (10:24→21:25)
--- NOTE | 2018-04-13 11:43 | CP.PCM.PN ---
Subjective - Date & Time of Evaluation Date of Evaluation: 04/13/18 Time of Evaluation: 11:42 - Subjective Subjective: Podiatry Progress Note - Dr. Aldridge 72 year old male was seen at bedside this morning for bilateral leg wounds. Pt is AAOx3 in NAD, resting comfortably in bed at time of visit. Dressings are dry/ clean and intact. Patient states he still continues to have uncontrolled diarrhea. Patient denies any overnight acute events. Patient denies F/C/N/V/CP/ SOB. No other pedal complains. Objective - Vital Signs/Intake and Output Vital Signs (last 24 hours): Temp Pulse Resp BP Pulse Ox 97.3 F L 98 H 20 110/69 98 04/13/18 07:00 04/13/18 10:22 04/13/18 07:00 04/13/18 10:22 04/13/18 07:00 - Medications Medications: Current Medications Amiodarone HCl (Cordarone) 200 mg PO Q12 [facility] Last Admin: 04/13/18 10:23 Dose: 200 mg Amoxicillin/Clavulanate Potassium (Augmentin 875 Mg-125 Mg Tab) 1 tab PO Q12H [facility] PRN Reason: Protocol Last Admin: 04/13/18 10:23 Dose: 1 tab Apixaban (Eliquis) 5 mg PO BID [facility] Last Admin: 04/13/18 10:24 Dose: 5 mg Aspirin (Aspirin Chewable) 81 mg PO DAILY [facility] Last Admin: 04/13/18 10:23 Dose: 81 mg Dextrose (Dextrose 50% Inj) 0 ml IV STAT PRN; Protocol PRN Reason: Hypoglycemia Protocol Dextrose (Glutose 15) 0 gm PO ONCE PRN; Protocol PRN Reason: Hypoglycemia Protocol Glucagon (Glucagen Diagnostic Kit) 0 mg IM STAT PRN; Protocol PRN Reason: Hypoglycemia Protocol Meropenem 500 mg/ Sodium (Chloride) 100 mls @ 100 mls/hr IVPB Q8 [facility] PRN Reason: Protocol Last Admin: 04/13/18 05:46 Dose: 100 mls/hr Insulin Human Regular (Novolin R) 0 unit SC ACHS [facility] PRN Reason: Protocol Last Admin: 04/13/18 08:30 Dose: 1 units Mupirocin (Bactroban Ointment) 0 gm TOP DAILY [facility] Last Admin: 04/13/18 10:29 Dose: 1 applic Pantoprazole Sodium (Protonix Ec Tab) 40 mg PO DAILY [facility] Last Admin: 04/13/18 10:23 Dose: 40 mg Saccharomyces Boulardii (Florastor) 250 mg PO Q12 [facility] Last Admin: 04/13/18 10:24 Dose: 250 mg - Labs Labs: 04/12/18 06:25 04/12/18 06:25 PT 13.3 SECONDS (9.7-12.2) H 04/02/18 15:25 INR 1.2 04/02/18 15:25 APTT 61 SECONDS (21-34) H D 04/07/18 06:14 - Constitutional Appears: Well, Non-toxic, No Acute Distress - Extremities Exam Additional comments: Lower extremity focused exam: Derm: Multiple ulcerations noted circumferentially around the leg B/L. Erythema noted from the ankle joint to the tibial tuberosity B/L Left: Ulceration noted to the dorsal distal aspect of the anterior leg with irregular wound border, measuring approximately 5 cm x 4 cm x 0.3 cm, no probe to bone, 100% granular base, no malodor, no purulence, active sero-sanguineous drainage noted, no tunneling or tracking noted, periwound erythema, no clinical signs of infection. Multiple small ulcerations on lateral and posterior aspects of distal leg with regular borders, 100% fibrotic base, no probe to bone, serous drainage noted, no purulence, no tunneling or tracking noted, periwound erythema no clinical signs of infection. Right: Ulceration noted at the distal aspect of dorsal leg, irregular border measuring approximately 6 cm x 5 cm x .3, no probe to bone, fibrogranular base, no malodor noted, active sanguineous drainage noted, no tunneling or tracking noted, dion wound erythema, no clinical signs of infection noted. Vascular: Non-palpable DP and PT pulses secondary to pitting edema. +3 pitting edema to bilateral LE noted. CFT <3 secs noted to all digits, no pedal hair noted Neuro: protective sensation grossly diminished Ortho: Mild tenderness to palpation of leg ulceration sites - Neurological Exam Neurological Exam: Alert, Awake, Oriented x3 - Psychiatric Exam Psychiatric exam: Normal Affect, Normal Mood Assessment and Plan - Assessment and Plan (Free Text) Assessment: 72 year old male patient was evaluated for multiple, chronic ulcerations to bilateral legs Plan: Patient was seen and evaluated Discussed plan with attending Dr. Aldridge Bilateral leg ulcers cleaned with saline and dressed with xeroform, gauze, ABD pads and kerlix Podiatry to continue local wound care to legs- no surgical intervention planned at this time Multipodus boots to be kept on at all times in bed Stable from podiatry standpoint Podiatry will continue to follow patient while in house
[2018-04-13] MEDS ORDERED: Sodium Chloride 0.9% 500 ML IV ONE (15:57)
[2018-04-13] MEDS ORDERED: Sodium Chloride 0.9% 1,000 ML IV ONE (15:58)
[2018-04-13] MEDS ORDERED: Albumin Human 25% (12.5 gm/50 ml) IV ONE (15:58)
[2018-04-13 16:28] LABS: BASO # 0.1 K/uL (0.0-0.2); BASO % 1.1 % (0.0-2.0); EOS # 0.2 K/uL (0.0-0.7); EOS % 1.4 % (0.0-4.0); HEMOGLOBIN 8.8 g/dL (12.0-18.0); LYMPH % 8.6 % (20.0-40.0); MEAN CELL VOLUME 94.9 fL (80.0-94.0); MEAN CORPUSCULAR HEMOGLOBIN 32.1 pg (27.0-31.0); MEAN CORPUSCULAR HGB CONC 33.8 g/dL (33.0-37.0); MEAN PLATELET VOLUME 8.1 fL (7.2-11.7); MONO # 0.8 K/uL (0.0-0.8); NEUT # 9.2 K/uL (1.8-7.0); NEUT % 81.9 % (50.0-75.0); PLATELET COUNT 223 K/uL (130-400); RBC 2.74 Mil/uL (4.40-5.90); RED CELL DISTRIBUTION WIDTH 14.9 % (11.5-14.5); WHITE BLOOD COUNT 11.2 K/uL (4.8-10.8)
[2018-04-13 16:44] LABS: ALB/GLOB RATIO 0.9 (1.0-2.1); ALBUMIN 2.5 g/dL (3.5-5.0); ALT/SGPT 25 U/L (21-72); AST/SGOT 18 U/L (17-59); BLOOD UREA NITROGEN 17 mg/dL (9-20); CALCIUM 7.8 mg/dl (8.6-10.4); GFR AFRICAN-AMERICAN > 60; GFR NON-AFRICAN AMERICAN 54
[2018-04-13 17:05] LABS: LYMPHOCYTE 5 % (20-40); MONOCYTE 9 % (0-10); NEUTROPHIL 86 % (50-75); PLATELET ESTIMATE NORMAL (NORMAL); TOTAL CELLS COUNTED 100
[2018-04-13 17:06] LABS: HYPOCHROMIC SLIGHT; POLYCHROMIC SLIGHT
--- NOTE | 2018-04-13 18:34 | CP.PCM.PN ---
Subjective - Date & Time of Evaluation Date of Evaluation: 04/13/18 Time of Evaluation: 10:00 - Subjective Subjective: c diff neg x4 iv rx to cont for total 14 days Objective - Vital Signs/Intake and Output Vital Signs (last 24 hours): Temp Pulse Resp BP Pulse Ox 98.1 F 88 18 99/65 L 97 04/13/18 16:29 04/13/18 17:03 04/13/18 17:03 04/13/18 17:03 04/13/18 17:03 Intake and Output: 04/13/18 04/13/18 06:59 18:59 Intake Total 300 Output Total 2 Balance 298 - Medications Medications: Current Medications Amiodarone HCl (Cordarone) 200 mg PO Q12 [facility] Last Admin: 04/13/18 10:23 Dose: 200 mg Amoxicillin/Clavulanate Potassium (Augmentin 875 Mg-125 Mg Tab) 1 tab PO Q12H [facility] PRN Reason: Protocol Last Admin: 04/13/18 10:23 Dose: 1 tab Apixaban (Eliquis) 5 mg PO BID [facility] Last Admin: 04/13/18 17:20 Dose: 5 mg Aspirin (Aspirin Chewable) 81 mg PO DAILY [facility] Last Admin: 04/13/18 10:23 Dose: 81 mg Dextrose (Dextrose 50% Inj) 0 ml IV STAT PRN; Protocol PRN Reason: Hypoglycemia Protocol Dextrose (Glutose 15) 0 gm PO ONCE PRN; Protocol PRN Reason: Hypoglycemia Protocol Glucagon (Glucagen Diagnostic Kit) 0 mg IM STAT PRN; Protocol PRN Reason: Hypoglycemia Protocol Meropenem 500 mg/ Sodium (Chloride) 100 mls @ 100 mls/hr IVPB Q8 [facility] PRN Reason: Protocol Last Admin: 04/13/18 13:25 Dose: 100 mls/hr Insulin Human Regular (Novolin R) 0 unit SC ACHS [facility] PRN Reason: Protocol Last Admin: 04/13/18 16:29 Dose: Not Given Mupirocin (Bactroban Ointment) 0 gm TOP DAILY [facility] Last Admin: 04/13/18 10:29 Dose: 1 applic Pantoprazole Sodium (Protonix Ec Tab) 40 mg PO DAILY [facility] Last Admin: 04/13/18 10:23 Dose: 40 mg Saccharomyces Boulardii (Florastor) 250 mg PO Q12 [facility] Last Admin: 04/13/18 10:24 Dose: 250 mg - Labs Labs: 04/13/18 16:21 04/13/18 16:21 PT 13.3 SECONDS (9.7-12.2) H 04/02/18 15:25 INR 1.2 04/02/18 15:25 APTT 61 SECONDS (21-34) H D 04/07/18 06:14 - Constitutional Appears: Well - Head Exam Head Exam: ATRAUMATIC, NORMAL INSPECTION, NORMOCEPHALIC - Eye Exam Eye Exam: EOMI, Normal appearance, PERRL Pupil Exam: NORMAL ACCOMODATION, PERRL - ENT Exam ENT Exam: Mucous Membranes Moist, Normal Exam - Neck Exam Neck Exam: Full ROM, Normal Inspection. absent: Lymphadenopathy - Respiratory Exam Respiratory Exam: Clear to Ausculation Bilateral, NORMAL BREATHING PATTERN - Cardiovascular Exam Cardiovascular Exam: REGULAR RHYTHM, +S1, +S2. absent: Murmur - GI/Abdominal Exam GI & Abdominal Exam: Soft, Normal Bowel Sounds. absent: Tenderness - Rectal Exam Rectal Exam: NORMAL INSPECTION - Exam Exam: Circumcision, NORMAL INSPECTION - Extremities Exam Extremities Exam: Calf Tenderness, Full ROM, Tenderness. 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
--- NOTE | 2018-04-13 19:15 | CP.PCM.PN ---
Subjective - Date & Time of Evaluation Date of Evaluation: 04/13/18 Time of Evaluation: 19:15 - Subjective Subjective: Patient still persistently having diarrhea. Watery stools noted. No nausea vomiting. He is eating okay. No abdominal pain. Today his blood pressure was on the low side. Fluid challenges was given this afternoon, lactic acid level is normal. Patient responded to intravenous IV fluids. On examination: Recent blood pressure 99/70. Heart rate is 82. Atrial fibrillation changes noted. Regular heart sound. Abdomen soft. Nontender. Extremities bilateral pedal edema noted Assessment and recognition: 72-year-old male with a history of intestinal obstruction in the past acute renal failure, history of recent hemodialysis. Septic shock, multiorgan failure, renal failure. Patient slowly improving. Atrial fibrillation. On anticoagulation. Will hold off the amiodarone for now because of the low blood pressure. IV fluid. We will follow the patient. Discussed with the patient about the discharge plan this morning, but will also speak to the patient's family. Objective - Vital Signs/Intake and Output Vital Signs (last 24 hours): Temp Pulse Resp BP Pulse Ox 98.1 F 88 18 99/65 L 97 04/13/18 16:29 04/13/18 17:03 04/13/18 17:03 04/13/18 17:03 04/13/18 17:03 Intake and Output: 04/13/18 04/14/18 18:59 06:59 Intake Total 300 Output Total 2 Balance 298 - Medications Medications: Current Medications Apixaban (Eliquis) 5 mg PO BID [facility] Last Admin: 04/13/18 17:20 Dose: 5 mg Aspirin (Aspirin Chewable) 81 mg PO DAILY [facility] Last Admin: 04/13/18 10:23 Dose: 81 mg Dextrose (Dextrose 50% Inj) 0 ml IV STAT PRN; Protocol PRN Reason: Hypoglycemia Protocol Dextrose (Glutose 15) 0 gm PO ONCE PRN; Protocol PRN Reason: Hypoglycemia Protocol Glucagon (Glucagen Diagnostic Kit) 0 mg IM STAT PRN; Protocol PRN Reason: Hypoglycemia Protocol Meropenem 500 mg/ Sodium (Chloride) 100 mls @ 100 mls/hr IVPB Q8 [facility] PRN Reason: Protocol Last Admin: 04/13/18 13:25 Dose: 100 mls/hr Sodium Chloride (Sodium Chloride 0.9%) 1,000 mls @ 100 mls/hr IV .Q10H [facility] Insulin Human Regular (Novolin R) 0 unit SC ACHS [facility] PRN Reason: Protocol Last Admin: 04/13/18 16:29 Dose: Not Given Mupirocin (Bactroban Ointment) 0 gm TOP DAILY [facility] Last Admin: 04/13/18 10:29 Dose: 1 applic Pantoprazole Sodium (Protonix Ec Tab) 40 mg PO DAILY [facility] Last Admin: 04/13/18 10:23 Dose: 40 mg Saccharomyces Boulardii (Florastor) 250 mg PO Q12 [facility] Last Admin: 04/13/18 10:24 Dose: 250 mg - Labs Labs: 04/13/18 16:21 04/13/18 16:21 PT 13.3 SECONDS (9.7-12.2) H 04/02/18 15:25 INR 1.2 04/02/18 15:25 APTT 61 SECONDS (21-34) H D 04/07/18 06:14
[2018-04-13] MEDS: Sodium Chloride 0.9% 1,000 ML IV SCH (20:28)
--- NOTE | 2018-04-14 00:36 | CP.PCM.PN ---
Subjective - Date & Time of Evaluation Date of Evaluation: 04/12/18 Time of Evaluation: 11:05 - Subjective Subjective: Patient seen and evaluated Denies chest pain and dypnea Review of Systems - Review of Systems Systems not reviewed;Unavailable: Altered Mental Status Review of Systems: Per son: - Constitutional Constitutional: Chills, Fever, Lethargy, Malaise - Cardiovascular Cardiovascular: absent: Chest Pain - Respiratory Respiratory: Dyspnea - Gastrointestinal Gastrointestinal: absent: Abdominal Pain - Genitourinary Genitourinary: absent: Dysuria Physical Exam - Constitutional Appears: In Acute Distress - Head Exam Head Exam: ATRAUMATIC, NORMAL INSPECTION - Eye Exam Eye Exam: EOMI Pupil Exam: PERRL - ENT Exam ENT Exam: Mucous Membranes Dry - Neck Exam Neck exam: Positive for: Normal Inspection - Respiratory Exam Respiratory Exam: Clear to Auscultation Bilateral, NORMAL BREATHING PATTERN. absent: Rales, Rhonchi, Wheezes - Cardiovascular Exam Cardiovascular Exam: Tachycardia, +S1, +S2. absent: JVD - GI/Abdominal Exam GI & Abdominal Exam: Diminished Bowel Sounds, Soft - Extremities Exam Extremities exam: Negative for: normal capillary refill - Neurological Exam Neurological exam: Alert Objective - Vital Signs/Intake and Output Vital Signs (last 24 hours): Temp Pulse Resp BP Pulse Ox 98.1 F 88 18 99/65 L 97 04/13/18 16:29 04/13/18 17:03 04/13/18 17:03 04/13/18 17:03 04/13/18 17:03 Intake and Output: 04/13/18 04/14/18 18:59 06:59 Intake Total 300 Output Total 2 Balance 298 - Medications Medications: Current Medications Apixaban (Eliquis) 5 mg PO BID [facility] Last Admin: 04/13/18 17:20 Dose: 5 mg Aspirin (Aspirin Chewable) 81 mg PO DAILY [facility] Last Admin: 04/13/18 10:23 Dose: 81 mg Dextrose (Dextrose 50% Inj) 0 ml IV STAT PRN; Protocol PRN Reason: Hypoglycemia Protocol Dextrose (Glutose 15) 0 gm PO ONCE PRN; Protocol PRN Reason: Hypoglycemia Protocol Glucagon (Glucagen Diagnostic Kit) 0 mg IM STAT PRN; Protocol PRN Reason: Hypoglycemia Protocol Meropenem 500 mg/ Sodium (Chloride) 100 mls @ 100 mls/hr IVPB Q8 [facility] PRN Reason: Protocol Last Admin: 04/13/18 21:25 Dose: 100 mls/hr Sodium Chloride (Sodium Chloride 0.9%) 1,000 mls @ 100 mls/hr IV .Q10H [facility] Last Admin: 04/13/18 20:28 Dose: 100 mls/hr Insulin Human Regular (Novolin R) 0 unit SC ACHS [facility] PRN Reason: Protocol Last Admin: 04/13/18 21:50 Dose: Not Given Mupirocin (Bactroban Ointment) 0 gm TOP DAILY [facility] Last Admin: 04/13/18 10:29 Dose: 1 applic Pantoprazole Sodium (Protonix Ec Tab) 40 mg PO DAILY [facility] Last Admin: 04/13/18 10:23 Dose: 40 mg Saccharomyces Boulardii (Florastor) 250 mg PO Q12 [facility] Last Admin: 04/13/18 21:25 Dose: 250 mg - Labs Labs: 04/13/18 16:21 04/13/18 16:21 PT 13.3 SECONDS (9.7-12.2) H 04/02/18 15:25 INR 1.2 04/02/18 15:25 APTT 61 SECONDS (21-34) H D 04/07/18 06:14 Assessment and Plan - Assessment and Plan (Free Text) Assessment: This is a 72 year old male with PMHx of arthritis, history of colon polyps, kidney stones, renal insufficiency, glaucoma s/p partial colectomy brought by EMS as aptient fell out of his chair. Admitted for severe sepsis, septic shock 2 /2 bilateral lower extremity cellulitis, metabolic encephalopathy 2/2 ARF ( severe metabolic acidosis and uremia), and atrial fibrillation with RVR. Right PICC line placed 04/05 AMANDA 04/07- Plan: Neuro: [id number] A: AMS - RESOLVED - Head CT - negative A: Metabolic Encephalopathy - RESOLVED - Likely 2/2 uremia and severe metabolic acidosis from ARF Cardio: A: New Onset Atrial Fibrillation with RVR - rate controlled - ECHO: LVEF 60-65%, LVH, sclerotic trileaflet aortic valve - TSH, Free T4 - WNL - Was given digoxin, verapamil - Currently on OFF amio and verapamil drip - Now on Amio 200mg PO Q12 - Heparin drip started - will be discontinued 04/08--> Eliquis 5mg PO BID A: Hypotension - resolving - Stopped vaso; Currently on Midodrine ; tolerating well - Started LR @75cc GI: A: Diarrhea - RESOLVING - Started on vanco, flagyl - Cdiff negative, stool studies negative A: Cholelithiasis - CT chest/ab/pel: No evidence of pneumonia or empyema. Possible cholelithiasis. Correlate with ultrasound examination. Status post subtotal colectomy. Mural thickening of small bowel loops in the right lower quadrant. Nonspecific finding. Small hiatal hernia. Bilateral gynecomastia. Stable left adrenal adenoma. Small left renal cortical cyst. - Abdominal US: Cholelithiasis with prominent gallbladder calculus up to 2.3 cm at the neck of the gallbladde, additional calculus at the neck of the gallbladder measuring 1.3 cm. CBD 4.8mm. - T. bili now 0.8 A: Hx of Colon CA s/p subtotal colectomy? Endo: A: T2DM - Accuchecks, ISS - A1C 7.2 Renal: A: Acute Renal Failure with severe metabolic acidosis, hyperkalemia - RESOLVED -- Dr. Luna consulted - Right Shiley placed 04/02 - Received dialysis 04/02 - Started on Bicarb drip @ 75cc/hr - DC - HD TTS - SHILEY REMOVED 04/06 - no more dialysis at this time, renal function improving ID: A: Septic Shock -- ID consulted, Dr. Valdez -- Wound Care - 11/11 bilateral lower extremity cellulitis - BC grew Pasteurella, f/u repeat BC 04/07 - Wound Culture: Serratia Marcescens - Started on Meropenem 04/02/18 (VANCO was DC) A: + Blood Cultures - AMANDA 04/07 - r/o endocarditis A: Bilateral Lower Extremity Cellulitis -- Podiatry was consulted -- Wound care on board - Venous dopplers ordered - NEGATIVE FOR DVT - Xray - negative for osteo Heme/Onc: A: Anemia, thrombocytopenia - Baseline 11 - DDAVP given, albumin 25grms given, ASA, heparin held - Stool occult + - Hemoglobin is stabilizing 04/07 - stopped PPI Q12, now daily, resumed ASA, hep (will transition to Eliquis) - Continue to monitor Prophylaxis: - PPI - SCDs c/i, Heparin drip --> Eliquis - Florastor started - PT/ OT - POLST form filled out: Patient is DNR/DNI - Consent: Son Troy Bowden, , [place] [phone] - Case management for intermediate placement - Right PICC Line - 04/05
--- NOTE | 2018-04-14 00:37 | CP.PCM.PN ---
Subjective - Date & Time of Evaluation Date of Evaluation: 04/13/18 Time of Evaluation: 15:00 - Subjective Subjective: Patient seen and evaluated Denies chest pain and dypnea Review of Systems - Review of Systems Systems not reviewed;Unavailable: Altered Mental Status Review of Systems: Per son: - Constitutional Constitutional: Chills, Fever, Lethargy, Malaise - Cardiovascular Cardiovascular: absent: Chest Pain - Respiratory Respiratory: Dyspnea - Gastrointestinal Gastrointestinal: absent: Abdominal Pain - Genitourinary Genitourinary: absent: Dysuria Physical Exam - Constitutional Appears: In Acute Distress - Head Exam Head Exam: ATRAUMATIC, NORMAL INSPECTION - Eye Exam Eye Exam: EOMI Pupil Exam: PERRL - ENT Exam ENT Exam: Mucous Membranes Dry - Neck Exam Neck exam: Positive for: Normal Inspection - Respiratory Exam Respiratory Exam: Clear to Auscultation Bilateral, NORMAL BREATHING PATTERN. absent: Rales, Rhonchi, Wheezes - Cardiovascular Exam Cardiovascular Exam: Tachycardia, +S1, +S2. absent: JVD - GI/Abdominal Exam GI & Abdominal Exam: Diminished Bowel Sounds, Soft - Extremities Exam Extremities exam: Negative for: normal capillary refill - Neurological Exam Neurological exam: Alert Objective - Vital Signs/Intake and Output Vital Signs (last 24 hours): Temp Pulse Resp BP Pulse Ox 98.1 F 88 18 99/65 L 97 04/13/18 16:29 04/13/18 17:03 04/13/18 17:03 04/13/18 17:03 04/13/18 17:03 Intake and Output: 04/13/18 04/14/18 18:59 06:59 Intake Total 300 Output Total 2 Balance 298 - Medications Medications: Current Medications Apixaban (Eliquis) 5 mg PO BID [facility] Last Admin: 04/13/18 17:20 Dose: 5 mg Aspirin (Aspirin Chewable) 81 mg PO DAILY [facility] Last Admin: 04/13/18 10:23 Dose: 81 mg Dextrose (Dextrose 50% Inj) 0 ml IV STAT PRN; Protocol PRN Reason: Hypoglycemia Protocol Dextrose (Glutose 15) 0 gm PO ONCE PRN; Protocol PRN Reason: Hypoglycemia Protocol Glucagon (Glucagen Diagnostic Kit) 0 mg IM STAT PRN; Protocol PRN Reason: Hypoglycemia Protocol Meropenem 500 mg/ Sodium (Chloride) 100 mls @ 100 mls/hr IVPB Q8 [facility] PRN Reason: Protocol Last Admin: 04/13/18 21:25 Dose: 100 mls/hr Sodium Chloride (Sodium Chloride 0.9%) 1,000 mls @ 100 mls/hr IV .Q10H [facility] Last Admin: 04/13/18 20:28 Dose: 100 mls/hr Insulin Human Regular (Novolin R) 0 unit SC ACHS [facility] PRN Reason: Protocol Last Admin: 04/13/18 21:50 Dose: Not Given Mupirocin (Bactroban Ointment) 0 gm TOP DAILY [facility] Last Admin: 04/13/18 10:29 Dose: 1 applic Pantoprazole Sodium (Protonix Ec Tab) 40 mg PO DAILY [facility] Last Admin: 04/13/18 10:23 Dose: 40 mg Saccharomyces Boulardii (Florastor) 250 mg PO Q12 [facility] Last Admin: 04/13/18 21:25 Dose: 250 mg - Labs Labs: 04/13/18 16:21 04/13/18 16:21 PT 13.3 SECONDS (9.7-12.2) H 04/02/18 15:25 INR 1.2 04/02/18 15:25 APTT 61 SECONDS (21-34) H D 04/07/18 06:14 Assessment and Plan - Assessment and Plan (Free Text) Assessment: This is a 72 year old male with PMHx of arthritis, history of colon polyps, kidney stones, renal insufficiency, glaucoma s/p partial colectomy brought by EMS as aptient fell out of his chair. Admitted for severe sepsis, septic shock 2 /2 bilateral lower extremity cellulitis, metabolic encephalopathy 2/2 ARF ( severe metabolic acidosis and uremia), and atrial fibrillation with RVR. Right PICC line placed 04/05 AMANDA 04/07- Plan: Neuro: [id number] A: AMS - RESOLVED - Head CT - negative A: Metabolic Encephalopathy - RESOLVED - Likely 2/2 uremia and severe metabolic acidosis from ARF Cardio: A: New Onset Atrial Fibrillation with RVR - rate controlled - ECHO: LVEF 60-65%, LVH, sclerotic trileaflet aortic valve - TSH, Free T4 - WNL - Was given digoxin, verapamil - Currently on OFF amio and verapamil drip - Now on Amio 200mg PO Q12 - Heparin drip started - will be discontinued 04/08--> Eliquis 5mg PO BID A: Hypotension - resolving - Stopped vaso; Currently on Midodrine ; tolerating well - Started LR @75cc GI: A: Diarrhea - RESOLVING - Started on vanco, flagyl - Cdiff negative, stool studies negative A: Cholelithiasis - CT chest/ab/pel: No evidence of pneumonia or empyema. Possible cholelithiasis. Correlate with ultrasound examination. Status post subtotal colectomy. Mural thickening of small bowel loops in the right lower quadrant. Nonspecific finding. Small hiatal hernia. Bilateral gynecomastia. Stable left adrenal adenoma. Small left renal cortical cyst. - Abdominal US: Cholelithiasis with prominent gallbladder calculus up to 2.3 cm at the neck of the gallbladde, additional calculus at the neck of the gallbladder measuring 1.3 cm. CBD 4.8mm. - T. bili now 0.8 A: Hx of Colon CA s/p subtotal colectomy? Endo: A: T2DM - Accuchecks, ISS - A1C 7.2 Renal: A: Acute Renal Failure with severe metabolic acidosis, hyperkalemia - RESOLVED -- Dr. Luna consulted - Right Shiley placed 04/02 - Received dialysis 04/02 - Started on Bicarb drip @ 75cc/hr - DC - HD TTS - SHILEY REMOVED 04/06 - no more dialysis at this time, renal function improving ID: A: Septic Shock -- ID consulted, Dr. Valdez -- Wound Care - 11/11 bilateral lower extremity cellulitis - BC grew Pasteurella, f/u repeat BC 04/07 - Wound Culture: Serratia Marcescens - Started on Meropenem 04/02/18 (VANCO was DC) A: + Blood Cultures - AMANDA 04/07 - r/o endocarditis A: Bilateral Lower Extremity Cellulitis -- Podiatry was consulted -- Wound care on board - Venous dopplers ordered - NEGATIVE FOR DVT - Xray - negative for osteo Heme/Onc: A: Anemia, thrombocytopenia - Baseline 11 - DDAVP given, albumin 25grms given, ASA, heparin held - Stool occult + - Hemoglobin is stabilizing 04/07 - stopped PPI Q12, now daily, resumed ASA, hep (will transition to Eliquis) - Continue to monitor Prophylaxis: - PPI - SCDs c/i, Heparin drip --> Eliquis - Florastor started - PT/ OT - POLST form filled out: Patient is DNR/DNI - Consent: Son Troy Bowden, , [place] [phone] - Case management for [facility]entiary placement - Right PICC Line - 04/05
[2018-04-14] MEDS: Meropenem 500 MG in Sodium Chloride 0.9% 100 ML IVPB SCH ×3 (05:11→22:03)
[2018-04-14] MEDS: Sodium Chloride 0.9% 1,000 ML IV SCH ×3 (05:21→17:58)
[2018-04-14] MEDS ORDERED: Benzocaine/Menthol (Cepacol) Lozenge MT ONE (06:00)
[2018-04-14 08:30] LABS: BASO # 0.1 K/uL (0.0-0.2); BASO % 1.2 % (0.0-2.0); EOS # 0.1 K/uL (0.0-0.7); EOS % 1.6 % (0.0-4.0); HEMOGLOBIN 8.2 g/dL (12.0-18.0); LYMPH # 0.8 K/uL (1.0-4.3); LYMPH % 9.2 % (20.0-40.0); MEAN CELL VOLUME 96.1 fL (80.0-94.0); MEAN CORPUSCULAR HEMOGLOBIN 31.6 pg (27.0-31.0); MEAN CORPUSCULAR HGB CONC 32.9 g/dL (33.0-37.0); MEAN PLATELET VOLUME 9.2 fL (7.2-11.7); MONO # 0.6 K/uL (0.0-0.8); MONO % 6.8 % (0.0-10.0); NEUT # 6.9 K/uL (1.8-7.0); NEUT % 81.2 % (50.0-75.0); PLATELET COUNT 177 K/uL (130-400); RED CELL DISTRIBUTION WIDTH 14.8 % (11.5-14.5); WHITE BLOOD COUNT 8.5 K/uL (4.8-10.8)
[2018-04-14] MEDS: (Novolin R) Insulin Human Regular 100 units/ml vial SC SCH ×4 (08:34→21:54)
[2018-04-14 08:40] LABS: ALB/GLOB RATIO 0.9 (1.0-2.1); ALBUMIN 2.2 g/dL (3.5-5.0); ALT/SGPT 23 U/L (21-72); AST/SGOT 15 U/L (17-59); BLOOD UREA NITROGEN 14 mg/dL (9-20); CALCIUM 7.4 mg/dl (8.6-10.4); GFR AFRICAN-AMERICAN > 60; GFR NON-AFRICAN AMERICAN 54
[2018-04-14 09:18] LABS: LYMPHOCYTE 8 % (20-40); MONOCYTE 5 % (0-10); NEUTROPHIL 87 % (50-75); PLATELET ESTIMATE NORMAL (NORMAL); TOTAL CELLS COUNTED 100
[2018-04-14] MEDS: Pantoprazole 40 mg EC Tab PO SCH (09:40)
[2018-04-14] MEDS: Saccharomyces Boulardi 250 mg Cap PO SCH ×2 (09:40→22:01)
[2018-04-14] MEDS: Magnesium Sulfate 1 gm in D5W 1 GM/100 ML BAG IVPB SCH ×2 (11:45→12:34)
--- NOTE | 2018-04-14 12:12 | RAD ---
HISTORY: Evaluate for pneumonia COMPARISON: 04/05/2018. FINDINGS: The right PICC line terminates in the SVC. LUNGS: The lungs are well inflated and clear. PLEURA: No significant pleural effusion identified, no pneumothorax apparent. CARDIOVASCULAR: There is mild cardiomegaly. OSSEOUS STRUCTURES: No significant abnormalities. VISUALIZED UPPER ABDOMEN: Normal. OTHER FINDINGS: None. IMPRESSION: The right PICC line terminates in the SVC. No active pulmonary disease.
--- NOTE | 2018-04-14 15:43 | CP.PCM.PN ---
Subjective - Date & Time of Evaluation Date of Evaluation: 04/14/18 Time of Evaluation: 15:41 - Subjective Subjective: Podiatry Progress Note - Dr. Aldridge 72 year old male was seen at bedside this morning for bilateral leg wounds. Family members at bedside. Pt is AAOx3 in NAD, resting comfortably in bed at time of visit. Reports that his diarrhea has improved. Patient denies any overnight acute events. Patient denies F/C/N/V/CP/SOB. No other pedal complains. Objective - Vital Signs/Intake and Output Vital Signs (last 24 hours): Temp Pulse Resp BP Pulse Ox 97.5 F L 85 20 104/67 99 04/14/18 08:20 04/14/18 08:20 04/14/18 08:20 04/14/18 08:20 04/14/18 08:20 Intake and Output: 04/14/18 04/14/18 06:59 18:59 Intake Total 800 Balance 800 - Medications Medications: Current Medications Apixaban (Eliquis) 5 mg PO BID [facility] Last Admin: 04/14/18 09:40 Dose: 5 mg Aspirin (Aspirin Chewable) 81 mg PO DAILY [facility] Last Admin: 04/14/18 09:39 Dose: 81 mg Dextrose (Dextrose 50% Inj) 0 ml IV STAT PRN; Protocol PRN Reason: Hypoglycemia Protocol Dextrose (Glutose 15) 0 gm PO ONCE PRN; Protocol PRN Reason: Hypoglycemia Protocol Glucagon (Glucagen Diagnostic Kit) 0 mg IM STAT PRN; Protocol PRN Reason: Hypoglycemia Protocol Sodium Chloride (Sodium Chloride 0.9%) 1,000 mls @ 100 mls/hr IV .Q10H [facility] Last Admin: 04/14/18 07:33 Dose: 100 mls/hr Meropenem 500 mg/ Sodium (Chloride) 100 mls @ 100 mls/hr IVPB Q8 [facility] PRN Reason: Protocol Insulin Human Regular (Novolin R) 0 unit SC ACHS [facility] PRN Reason: Protocol Last Admin: 04/14/18 12:34 Dose: 1 units Mupirocin (Bactroban Ointment) 0 gm TOP DAILY [facility] Last Admin: 04/14/18 09:40 Dose: Not Given Pantoprazole Sodium (Protonix Ec Tab) 40 mg PO DAILY [facility] Last Admin: 04/14/18 09:40 Dose: 40 mg Saccharomyces Boulardii (Florastor) 250 mg PO Q12 [facility] Last Admin: 04/14/18 09:40 Dose: 250 mg - Labs Labs: 04/14/18 08:07 04/14/18 08:07 PT 13.3 SECONDS (9.7-12.2) H 04/02/18 15:25 INR 1.2 04/02/18 15:25 APTT 61 SECONDS (21-34) H D 04/07/18 06:14 - Constitutional Appears: Well, Non-toxic, No Acute Distress - Extremities Exam Additional comments: Lower extremity focused exam: Derm: Multiple ulcerations noted circumferentially around the leg B/L. Erythema noted from the ankle joint to the tibial tuberosity B/L Left: Ulceration noted to the dorsal distal aspect of the anterior leg with irregular wound border, measuring approximately 5 cm x 4 cm x 0.3 cm, no probe to bone, 100% granular base, no malodor, no purulence, active sero-sanguineous drainage noted, no tunneling or tracking noted, periwound erythema, no clinical signs of infection. Multiple small ulcerations on lateral and posterior aspects of distal leg with regular borders, 100% fibrotic base, no probe to bone, serous drainage noted, no purulence, no tunneling or tracking noted, periwound erythema no clinical signs of infection. Right: Ulceration noted at the distal aspect of dorsal leg, irregular border measuring approximately 6 cm x 5 cm x .3, no probe to bone, fibrogranular base, no malodor noted, active sanguineous drainage noted, no tunneling or tracking noted, dion wound erythema, no clinical signs of infection noted. Vascular: Non-palpable DP and PT pulses secondary to pitting edema. +3 pitting edema to bilateral LE noted. CFT <3 secs noted to all digits, no pedal hair noted Neuro: protective sensation grossly diminished Ortho: Mild tenderness to palpation of leg ulceration sites - Neurological Exam Neurological Exam: Alert, Awake, Oriented x3 - Psychiatric Exam Psychiatric exam: Normal Affect, Normal Mood Assessment and Plan - Assessment and Plan (Free Text) Assessment: 72 year old male patient was evaluated for multiple, chronic ulcerations to bilateral legs Plan: Patient was seen and evaluated Discussed plan with attending Dr. Aldridge Bilateral leg ulcers cleaned with saline and dressed with xeroform, gauze, ABD pads and kerlix and EVON bandage Podiatry to continue local wound care to legs- no surgical intervention planned at this time Multipodus boots to be kept on at all times in bed Stable from podiatry standpoint Podiatry will continue to follow patient while in house
--- NOTE | 2018-04-14 18:18 | CP.PCM.PN ---
Subjective - Date & Time of Evaluation Date of Evaluation: 04/14/18 Time of Evaluation: 09:00 - Subjective Subjective: AWAKE ALERT AFEBRILE NAD Objective - Vital Signs/Intake and Output Vital Signs (last 24 hours): Temp Pulse Resp BP Pulse Ox 97.4 F L 92 H 18 95/61 L 96 04/14/18 16:07 04/14/18 16:07 04/14/18 16:07 04/14/18 16:07 04/14/18 16:07 Intake and Output: 04/14/18 04/14/18 06:59 18:59 Intake Total 800 1210 Output Total 3 Balance 800 1207 - Medications Medications: Current Medications Apixaban (Eliquis) 5 mg PO BID [facility] Last Admin: 04/14/18 17:55 Dose: 5 mg Aspirin (Aspirin Chewable) 81 mg PO DAILY [facility] Last Admin: 04/14/18 09:39 Dose: 81 mg Dextrose (Dextrose 50% Inj) 0 ml IV STAT PRN; Protocol PRN Reason: Hypoglycemia Protocol Dextrose (Glutose 15) 0 gm PO ONCE PRN; Protocol PRN Reason: Hypoglycemia Protocol Glucagon (Glucagen Diagnostic Kit) 0 mg IM STAT PRN; Protocol PRN Reason: Hypoglycemia Protocol Sodium Chloride (Sodium Chloride 0.9%) 1,000 mls @ 100 mls/hr IV .Q10H [facility] Last Admin: 04/14/18 17:58 Dose: 100 mls/hr Meropenem 500 mg/ Sodium (Chloride) 100 mls @ 100 mls/hr IVPB Q8 [facility] PRN Reason: Protocol Insulin Human Regular (Novolin R) 0 unit SC ACHS [facility] PRN Reason: Protocol Last Admin: 04/14/18 17:56 Dose: Not Given Mupirocin (Bactroban Ointment) 0 gm TOP DAILY [facility] Last Admin: 04/14/18 09:40 Dose: Not Given Pantoprazole Sodium (Protonix Ec Tab) 40 mg PO DAILY [facility] Last Admin: 04/14/18 09:40 Dose: 40 mg Saccharomyces Boulardii (Florastor) 250 mg PO Q12 [facility] Last Admin: 04/14/18 09:40 Dose: 250 mg - Labs Labs: 04/14/18 08:07 04/14/18 08:07 PT 13.3 SECONDS (9.7-12.2) H 04/02/18 15:25 INR 1.2 04/02/18 15:25 APTT 61 SECONDS (21-34) H D 04/07/18 06:14 - Constitutional Appears: Non-toxic, Chronically Ill - Head Exam Head Exam: NORMOCEPHALIC - Eye Exam Eye Exam: PERRL - ENT Exam ENT Exam: Mucous Membranes Dry - Neck Exam Neck Exam: absent: Lymphadenopathy - Respiratory Exam Respiratory Exam: Decreased Breath Sounds - Cardiovascular Exam Cardiovascular Exam: REGULAR RHYTHM - GI/Abdominal Exam GI & Abdominal Exam: Distended, Soft - Rectal Exam Rectal Exam: Deferred - Exam Exam: NORMAL INSPECTION - Extremities Exam Extremities Exam: absent: Pedal Edema - Back Exam Back Exam: absent: CVA tenderness (L), CVA tenderness (R) - Neurological Exam Neurological Exam: Alert, Awake, Oriented x3 - Psychiatric Exam Psychiatric exam: Depressed - Skin Skin Exam: Dry Assessment and Plan (1) TERRENCE (acute kidney injury) Status: Acute (2) Sepsis associated hypotension Status: Acute (3) Atrial fibrillation Status: Acute (4) Cellulitis of right leg Status: Acute (5) Chronic kidney disease, stage III (moderate) Status: Acute (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
--- NOTE | 2018-04-14 22:06 | CP.PCM.PN ---
Subjective - Date & Time of Evaluation Date of Evaluation: 04/14/18 Time of Evaluation: 22:06 - Subjective Subjective: Patient is claims that his diarrhea is less now. And he is eating better today. No abdominal pain. No nausea vomiting On examination: Vital signs now the blood pressure is 95/61. Pulse is 62. Chest bilateral good air entry regular heart sounds nontender abdomen extremities pedal edema bilaterally noted Labs reviewed Hemoglobin 8.2 Hematocrit is 25. Platelet is 177. Renal functions is normal otherwise, low magnesium and potassium level noted Chest x-ray which was done today showing evidence of no acute pathology. No new changes Assessment and recommendation: 72-year-old male with a history of intestinal obstruction in the past status post adhesion lysis. Recently admitted with acute renal failure multiorgan failure septic shock was on on hemodialysis. Episode of low blood pressure noted. Patient is currently making urine. Renal function is better. We will monitor the H&H. May need a blood transfusion. On intravenous antibiotic also receiving IV fluid. We will repeat the labs tomorrow. He is also on anticoagulation for atrial fibrillation. We will follow the patient Objective - Vital Signs/Intake and Output Vital Signs (last 24 hours): Temp Pulse Resp BP Pulse Ox 97.4 F L 92 H 18 95/61 L 96 04/14/18 16:07 04/14/18 18:00 04/14/18 16:07 04/14/18 16:07 04/14/18 16:07 Intake and Output: 04/14/18 04/15/18 18:59 06:59 Intake Total 1210 Output Total 3 Balance 1207 - Medications Medications: Current Medications Apixaban (Eliquis) 5 mg PO BID [facility] Last Admin: 04/14/18 17:55 Dose: 5 mg Aspirin (Aspirin Chewable) 81 mg PO DAILY [facility] Last Admin: 04/14/18 09:39 Dose: 81 mg Dextrose (Dextrose 50% Inj) 0 ml IV STAT PRN; Protocol PRN Reason: Hypoglycemia Protocol Dextrose (Glutose 15) 0 gm PO ONCE PRN; Protocol PRN Reason: Hypoglycemia Protocol Glucagon (Glucagen Diagnostic Kit) 0 mg IM STAT PRN; Protocol PRN Reason: Hypoglycemia Protocol Sodium Chloride (Sodium Chloride 0.9%) 1,000 mls @ 100 mls/hr IV .Q10H [facility] Last Admin: 04/14/18 17:58 Dose: 100 mls/hr Meropenem 500 mg/ Sodium (Chloride) 100 mls @ 100 mls/hr IVPB Q8 [facility] PRN Reason: Protocol Last Admin: 04/14/18 22:03 Dose: 100 mls/hr Insulin Human Regular (Novolin R) 0 unit SC ACHS [facility] PRN Reason: Protocol Last Admin: 04/14/18 21:54 Dose: Not Given Mupirocin (Bactroban Ointment) 0 gm TOP DAILY [facility] Last Admin: 04/14/18 09:40 Dose: Not Given Pantoprazole Sodium (Protonix Ec Tab) 40 mg PO DAILY [facility] Last Admin: 04/14/18 09:40 Dose: 40 mg Saccharomyces Boulardii (Florastor) 250 mg PO Q12 [facility] Last Admin: 04/14/18 22:01 Dose: 250 mg - Labs Labs: 04/14/18 08:07 04/14/18 08:07 PT 13.3 SECONDS (9.7-12.2) H 04/02/18 15:25 INR 1.2 04/02/18 15:25 APTT 61 SECONDS (21-34) H D 04/07/18 06:14
--- NOTE | 2018-04-14 23:21 | CP.PCM.PN ---
Subjective - Date & Time of Evaluation Date of Evaluation: 04/14/18 Time of Evaluation: 13:10 - Subjective Subjective: Patient seen and evaluated Denies chest pain and dypnea Review of Systems - Review of Systems Systems not reviewed;Unavailable: Altered Mental Status Review of Systems: Per son: - Constitutional Constitutional: Chills, Fever, Lethargy, Malaise - Cardiovascular Cardiovascular: absent: Chest Pain - Respiratory Respiratory: Dyspnea - Gastrointestinal Gastrointestinal: absent: Abdominal Pain - Genitourinary Genitourinary: absent: Dysuria Physical Exam - Constitutional Appears: In Acute Distress - Head Exam Head Exam: ATRAUMATIC, NORMAL INSPECTION - Eye Exam Eye Exam: EOMI Pupil Exam: PERRL - ENT Exam ENT Exam: Mucous Membranes Dry - Neck Exam Neck exam: Positive for: Normal Inspection - Respiratory Exam Respiratory Exam: Clear to Auscultation Bilateral, NORMAL BREATHING PATTERN. absent: Rales, Rhonchi, Wheezes - Cardiovascular Exam Cardiovascular Exam: Tachycardia, +S1, +S2. absent: JVD - GI/Abdominal Exam GI & Abdominal Exam: Diminished Bowel Sounds, Soft - Extremities Exam Extremities exam: Negative for: normal capillary refill - Neurological Exam Neurological exam: Alert Objective - Vital Signs/Intake and Output Vital Signs (last 24 hours): Temp Pulse Resp BP Pulse Ox 97.4 F L 92 H 18 95/61 L 96 04/14/18 16:07 04/14/18 18:00 04/14/18 16:07 04/14/18 16:07 04/14/18 16:07 Intake and Output: 04/14/18 04/15/18 18:59 06:59 Intake Total 1210 900 Output Total 3 Balance 1207 900 - Medications Medications: Current Medications Apixaban (Eliquis) 5 mg PO BID [facility] Last Admin: 04/14/18 17:55 Dose: 5 mg Aspirin (Aspirin Chewable) 81 mg PO DAILY [facility] Last Admin: 04/14/18 09:39 Dose: 81 mg Dextrose (Dextrose 50% Inj) 0 ml IV STAT PRN; Protocol PRN Reason: Hypoglycemia Protocol Dextrose (Glutose 15) 0 gm PO ONCE PRN; Protocol PRN Reason: Hypoglycemia Protocol Glucagon (Glucagen Diagnostic Kit) 0 mg IM STAT PRN; Protocol PRN Reason: Hypoglycemia Protocol Sodium Chloride (Sodium Chloride 0.9%) 1,000 mls @ 100 mls/hr IV .Q10H [facility] Last Admin: 04/14/18 17:58 Dose: 100 mls/hr Meropenem 500 mg/ Sodium (Chloride) 100 mls @ 100 mls/hr IVPB Q8 [facility] PRN Reason: Protocol Last Admin: 04/14/18 22:03 Dose: 100 mls/hr Insulin Human Regular (Novolin R) 0 unit SC ACHS [facility] PRN Reason: Protocol Last Admin: 04/14/18 21:54 Dose: Not Given Mupirocin (Bactroban Ointment) 0 gm TOP DAILY [facility] Last Admin: 04/14/18 09:40 Dose: Not Given Pantoprazole Sodium (Protonix Ec Tab) 40 mg PO DAILY [facility] Last Admin: 04/14/18 09:40 Dose: 40 mg Saccharomyces Boulardii (Florastor) 250 mg PO Q12 [facility] Last Admin: 04/14/18 22:01 Dose: 250 mg - Labs Labs: 04/14/18 08:07 04/14/18 08:07 PT 13.3 SECONDS (9.7-12.2) H 04/02/18 15:25 INR 1.2 04/02/18 15:25 APTT 61 SECONDS (21-34) H D 04/07/18 06:14
[2018-04-15] MEDS: Sodium Chloride 0.9% 1,000 ML IV SCH ×3 (02:33→11:24)
[2018-04-15] MEDS: Meropenem 500 MG in Sodium Chloride 0.9% 100 ML IVPB SCH ×4 (06:20→21:55)
[2018-04-15] MEDS: (Novolin R) Insulin Human Regular 100 units/ml vial SC SCH ×4 (07:42→21:56)
--- NOTE | 2018-04-15 07:43 | CARD ---
APPROVED REPORT EXAM: Transesophageal echocardiogram with color flow Doppler. INDICATION Infection : Rule out subacute bacterial endocarditis Echo Enhancing Agent Indication: Rule Out Septal Defect Agent/Amount Used: Agitated Saline Reason For Test : Rule out endocarditis. PROCEDURE After obtaining informed consent, patient underwent transesophageal echo in the [facility]. Type of Sedation : Conscious Sedation Sedation was provided by anesthesiologist. Sedation was achieved with intravenously. The AMANDA was performed complications. Throughout the procedure, the blood pressure, pulse oximetry, cardiac rhythm, and rate were monitored. The patient tolerated the procedure without adverse effects. Recovery from conscious sedation was uneventful and vital signs were stable. LEFT VENTRICLE The left ventricle is normal size. The left ventricular function is normal. The left ventricular ejection fraction is within the normal range. There is normal LV segmental wall motion. No left ventricle thrombus noted on this study. There is no ventricular septal defect visualized. RIGHT VENTRICLE The right ventricle is normal size. The right ventricular systolic function is normal. ATRIA The left atrium is moderately dilated. The right atrium is moderately dilated. Small PFO noted. No right to left shunt AORTIC VALVE Aortic valve fibrosclerotic and trileaflet No aortic regurgitation is present. There is no aortic valvular stenosis. There is no aortic valvular vegetation. MITRAL VALVE The mitral valve is normal in structure. There is no mitral valve stenosis. Mitral regurgitation is mild to moderate. TRICUSPID VALVE The tricuspid valve is normal in structure. There is mild tricuspid regurgitation. There is no tricuspid valve prolapse or vegetation. There is no tricuspid valve stenosis. PULMONIC VALVE The pulmonary valve is normal in structure. GREAT VESSELS The aortic root is normal in size. <Conclusion> The left ventricular function is normal. The left ventricular ejection fraction is within the normal range. The left atrium is moderately dilated. The right atrium is moderately dilated. Small PFO noted. No right to left shunt Aortic valve fibrosclerotic and trileaflet There is no aortic valvular vegetation. Mitral regurgitation is mild to moderate. There is mild tricuspid regurgitation. No Endocarditis detected
[2018-04-15 08:06] LABS: BASO # 0.1 K/uL (0.0-0.2); BASO % 1.1 % (0.0-2.0); EOS # 0.2 K/uL (0.0-0.7); EOS % 2.7 % (0.0-4.0); HEMOGLOBIN 7.2 g/dL (12.0-18.0); LYMPH # 0.7 K/uL (1.0-4.3); LYMPH % 12.2 % (20.0-40.0); MEAN CELL VOLUME 96.4 fL (80.0-94.0); MEAN CORPUSCULAR HGB CONC 33.2 g/dL (33.0-37.0); MEAN PLATELET VOLUME 8.7 fL (7.2-11.7); MONO # 0.5 K/uL (0.0-0.8); MONO % 9.2 % (0.0-10.0); NEUT # 4.1 K/uL (1.8-7.0); NEUT % 74.8 % (50.0-75.0); RBC 2.25 Mil/uL (4.40-5.90); RED CELL DISTRIBUTION WIDTH 14.8 % (11.5-14.5); WHITE BLOOD COUNT 5.5 K/uL (4.8-10.8)
[2018-04-15 08:12] LABS: ALB/GLOB RATIO 0.8 (1.0-2.1); ALBUMIN 1.9 g/dL (3.5-5.0); ALT/SGPT 28 U/L (21-72); AST/SGOT 12 U/L (17-59); BLOOD UREA NITROGEN 11 mg/dL (9-20); CALCIUM 6.4 mg/dl (8.6-10.4); GFR AFRICAN-AMERICAN > 60; GFR NON-AFRICAN AMERICAN > 60
[2018-04-15] MEDS: Saccharomyces Boulardi 250 mg Cap PO SCH ×2 (10:35→21:57)
[2018-04-15] MEDS: Magnesium Sulfate 1 gm in D5W 1 GM/100 ML BAG IVPB SCH ×2 (10:35→11:22)
[2018-04-15] MEDS: Pantoprazole 40 mg EC Tab PO SCH (10:35)
--- NOTE | 2018-04-15 11:48 | CP.PCM.PN ---
Subjective - Date & Time of Evaluation Date of Evaluation: 04/15/18 Time of Evaluation: 11:42 - Subjective Subjective: Podiatry Progress Note for attending Dr. Aldridge 72 year old male was seen and evaluated at bedside for bilateral leg wounds. patient is not in acute distress. Patient is AAOx3, resting comfortably in bed at time of visit. Patient denies any overnight acute events. Patient denies F/C /N/V/CP/SOB. Patient denies any other pedal complains. Objective - Vital Signs/Intake and Output Vital Signs (last 24 hours): Temp Pulse Resp BP Pulse Ox 97.8 F 82 20 94/60 L 100 04/15/18 07:34 04/15/18 07:34 04/15/18 07:34 04/15/18 07:34 04/15/18 07:34 Intake and Output: 04/15/18 04/15/18 06:59 18:59 Intake Total 900 Balance 900 - Medications Medications: Current Medications Aspirin (Aspirin Chewable) 81 mg PO DAILY [facility] Last Admin: 04/15/18 10:35 Dose: 81 mg Dextrose (Dextrose 50% Inj) 0 ml IV STAT PRN; Protocol PRN Reason: Hypoglycemia Protocol Dextrose (Glutose 15) 0 gm PO ONCE PRN; Protocol PRN Reason: Hypoglycemia Protocol Glucagon (Glucagen Diagnostic Kit) 0 mg IM STAT PRN; Protocol PRN Reason: Hypoglycemia Protocol Sodium Chloride (Sodium Chloride 0.9%) 1,000 mls @ 100 mls/hr IV .Q10H [facility] Last Admin: 04/15/18 11:24 Dose: Not Given Meropenem 500 mg/ Sodium (Chloride) 100 mls @ 100 mls/hr IVPB Q8 [facility] PRN Reason: Protocol Last Admin: 04/15/18 06:20 Dose: 100 mls/hr Magnesium Sulfate/Dextrose (Magnesium Sulfate 1 Gm/100 Ml D5w) 1 gm in 100 mls @ 100 mls/hr IVPB Q1H [facility] Stop: 04/15/18 11:59 Last Admin: 04/15/18 11:22 Dose: 100 mls/hr Potassium Chloride (Potassium Chloride 20 Meq/100 Ml) 20 meq in 100 mls @ 50 mls/hr IVPB ONCE ONE Stop: 04/15/18 11:57 Insulin Human Regular (Novolin R) 0 unit SC ACHS [facility] PRN Reason: Protocol Last Admin: 04/15/18 07:42 Dose: Not Given Mupirocin (Bactroban Ointment) 0 gm TOP DAILY [facility] Last Admin: 04/15/18 10:36 Dose: Not Given Pantoprazole Sodium (Protonix Ec Tab) 40 mg PO DAILY [facility] Last Admin: 04/15/18 10:35 Dose: 40 mg Saccharomyces Boulardii (Florastor) 250 mg PO Q12 [facility] Last Admin: 04/15/18 10:35 Dose: 250 mg - Labs Labs: 04/15/18 07:51 04/15/18 07:51 PT 13.3 SECONDS (9.7-12.2) H 04/02/18 15:25 INR 1.2 04/02/18 15:25 APTT 61 SECONDS (21-34) H D 04/07/18 06:14 - Constitutional Appears: Well, Non-toxic, No Acute Distress - Head Exam Head Exam: ATRAUMATIC, NORMOCEPHALIC - Extremities Exam Additional comments: Lower extremity focused exam: Vascular: DP/PT are Non-palpable, due to pitting edema. +2pitting edema to bilateral LE noted. CFT <3 secs noted to all digits, no pedal hair noted Neuro: protective sensation grossly diminished, Gross sensation intact Derm: Multiple ulcerations noted circumferentially around the leg B/L. Erythema noted from the ankle joint to the tibial tuberosity B/L Left: Ulceration noted to the dorsal distal aspect of the anterior leg with irregular wound border, measuring approximately 5 cm x 4 cm x 0.3 cm, no probe to bone, 100% granular base, no malodor, no purulence, active sero-sanguineous drainage noted, no tunneling or tracking noted, periwound erythema, no clinical signs of infection. Multiple small ulcerations on lateral and posterior aspects of distal leg with regular borders, 100% fibrotic base, no probe to bone, serous drainage noted, no purulence, no tunneling or tracking noted, periwound erythema no clinical signs of infection. Right: Ulceration noted at the distal aspect of dorsal leg, irregular border measuring approximately 6 cm x 5 cm x 0.3, no probe to bone, fibrogranular base , no malodor noted, active sanguineous drainage noted, no tunneling or tracking noted, dion wound erythema, no clinical signs of infection noted. MSK: Mild pain on palpation of leg ulceration sites - Neurological Exam Neurological Exam: Alert, Awake, Oriented x3 - Psychiatric Exam Psychiatric exam: Normal Affect, Normal Mood Assessment and Plan - Assessment and Plan (Free Text) Assessment: 72 year old male patient was evaluated for multiple, chronic venous stasis ulcerations of the leg bilaterally. Plan: Patient was seen and evaluated at the bedside Discussed plan with attending Dr. Aldridge Bilateral leg ulcers cleaned with saline and dressed with xeroform, gauze, ABD pads and kerlix and EVON bandage Podiatry to continue local wound care to legs. Multipodus boots to be kept on at all times in bed Patient is stable from podiatry standpoint Podiatry will continue to follow patient while in house
--- NOTE | 2018-04-15 16:08 | CP.PCM.PN ---
Subjective - Date & Time of Evaluation Date of Evaluation: 04/15/18 Time of Evaluation: 16:06 - Subjective Subjective: Patient is more awake and responding. He is comfortable. Not in any distress. No chest pain. Bilateral leg edema noted, but less than before. On examination: Vital signs stable. But blood pressure slightly on the low side. Chest good air entry bilaterally Regular heart sound. Labs reviewed Hemoglobin level is 7.7. But no active bleeding noted. Currently he is on anticoagulation Assessment/recognition: 72-year-old male with history of intestinal obstruction, status post radiation lysis in the past, renal insufficiency, admitted with septic shock and sepsis. Patient today had a low hemoglobin, needing transfusion. Will monitor the H&H. Stool guaiac. We will hold anticoagulation for now. I will follow the patient Objective - Vital Signs/Intake and Output Vital Signs (last 24 hours): Temp Pulse Resp BP Pulse Ox 97.7 F 84 18 97/62 L 100 04/15/18 15:23 04/15/18 15:23 04/15/18 15:23 04/15/18 15:23 04/15/18 07:34 Intake and Output: 04/15/18 04/15/18 06:59 18:59 Intake Total 900 1100 Balance 900 1100 - Medications Medications: Current Medications Aspirin (Aspirin Chewable) 81 mg PO DAILY [facility] Last Admin: 04/15/18 10:35 Dose: 81 mg Dextrose (Dextrose 50% Inj) 0 ml IV STAT PRN; Protocol PRN Reason: Hypoglycemia Protocol Dextrose (Glutose 15) 0 gm PO ONCE PRN; Protocol PRN Reason: Hypoglycemia Protocol Glucagon (Glucagen Diagnostic Kit) 0 mg IM STAT PRN; Protocol PRN Reason: Hypoglycemia Protocol Sodium Chloride (Sodium Chloride 0.9%) 1,000 mls @ 100 mls/hr IV .Q10H [facility] Last Admin: 04/15/18 11:24 Dose: Not Given Meropenem 500 mg/ Sodium (Chloride) 100 mls @ 100 mls/hr IVPB Q8 [facility] PRN Reason: Protocol Last Admin: 04/15/18 14:35 Dose: Not Given Insulin Human Regular (Novolin R) 0 unit SC ACHS [facility] PRN Reason: Protocol Last Admin: 04/15/18 12:58 Dose: 2 units Mupirocin (Bactroban Ointment) 0 gm TOP DAILY [facility] Last Admin: 04/15/18 10:36 Dose: Not Given Pantoprazole Sodium (Protonix Ec Tab) 40 mg PO DAILY [facility] Last Admin: 04/15/18 10:35 Dose: 40 mg Saccharomyces Boulardii (Florastor) 250 mg PO Q12 [facility] Last Admin: 04/15/18 10:35 Dose: 250 mg - Labs Labs: 04/15/18 07:51 04/15/18 07:51 PT 13.3 SECONDS (9.7-12.2) H 04/02/18 15:25 INR 1.2 04/02/18 15:25 APTT 61 SECONDS (21-34) H D 04/07/18 06:14
--- NOTE | 2018-04-15 23:25 | CP.PCM.PN ---
Subjective - Date & Time of Evaluation Date of Evaluation: 04/15/18 Time of Evaluation: 18:30 - Subjective Subjective: Patient seen and evaluated Comfortable Denies chest pain and dyspnea Objective - Vital Signs/Intake and Output Vital Signs (last 24 hours): Temp Pulse Resp BP Pulse Ox 97.7 F 73 16 108/69 96 04/15/18 17:26 04/15/18 17:26 04/15/18 17:26 04/15/18 17:26 04/15/18 16:00 Intake and Output: 04/15/18 04/16/18 18:59 06:59 Intake Total 1425 Balance 1425 - Medications Medications: Current Medications Aspirin (Aspirin Chewable) 81 mg PO DAILY [facility] Last Admin: 04/15/18 10:35 Dose: 81 mg Dextrose (Dextrose 50% Inj) 0 ml IV STAT PRN; Protocol PRN Reason: Hypoglycemia Protocol Dextrose (Glutose 15) 0 gm PO ONCE PRN; Protocol PRN Reason: Hypoglycemia Protocol Glucagon (Glucagen Diagnostic Kit) 0 mg IM STAT PRN; Protocol PRN Reason: Hypoglycemia Protocol Meropenem 500 mg/ Sodium (Chloride) 100 mls @ 100 mls/hr IVPB Q8 [facility] PRN Reason: Protocol Last Admin: 04/15/18 21:55 Dose: 100 mls/hr Insulin Human Regular (Novolin R) 0 unit SC ACHS [facility] PRN Reason: Protocol Last Admin: 04/15/18 21:56 Dose: Not Given Mupirocin (Bactroban Ointment) 0 gm TOP DAILY [facility] Last Admin: 04/15/18 10:36 Dose: Not Given Pantoprazole Sodium (Protonix Ec Tab) 40 mg PO DAILY [facility] Last Admin: 04/15/18 10:35 Dose: 40 mg Saccharomyces Boulardii (Florastor) 250 mg PO Q12 [facility] Last Admin: 04/15/18 21:57 Dose: 250 mg - Labs Labs: 04/15/18 07:51 04/15/18 07:51 PT 13.3 SECONDS (9.7-12.2) H 04/02/18 15:25 INR 1.2 04/02/18 15:25 APTT 61 SECONDS (21-34) H D 04/07/18 06:14
[2018-04-16 00:12] VITALS: RESP 20
[2018-04-16] MEDS: Meropenem 500 MG in Sodium Chloride 0.9% 100 ML IVPB SCH ×3 (05:57→21:28)
[2018-04-16] MEDS: (Novolin R) Insulin Human Regular 100 units/ml vial SC SCH ×4 (07:57→21:32)
[2018-04-16] MEDS: Pantoprazole 40 mg EC Tab PO SCH (09:10)
[2018-04-16] MEDS: Saccharomyces Boulardi 250 mg Cap PO SCH ×2 (09:10→21:27)
[2018-04-16 11:20] LABS: BASO # 0.1 K/uL (0.0-0.2); BASO % 1.6 % (0.0-2.0); EOS # 0.1 K/uL (0.0-0.7); EOS % 1.7 % (0.0-4.0); LYMPH # 0.7 K/uL (1.0-4.3); LYMPH % 11.9 % (20.0-40.0); MEAN CELL VOLUME 95.3 fL (80.0-94.0); MEAN CORPUSCULAR HEMOGLOBIN 31.6 pg (27.0-31.0); MEAN CORPUSCULAR HGB CONC 33.2 g/dL (33.0-37.0); MEAN PLATELET VOLUME 8.6 fL (7.2-11.7); MONO # 0.5 K/uL (0.0-0.8); MONO % 7.5 % (0.0-10.0); NEUT # 4.9 K/uL (1.8-7.0); NEUT % 77.3 % (50.0-75.0); RBC 3.03 Mil/uL (4.40-5.90); RED CELL DISTRIBUTION WIDTH 14.7 % (11.5-14.5); WHITE BLOOD COUNT 6.3 K/uL (4.8-10.8)
[2018-04-16 11:36] LABS: HEMOGLOBIN 9.6 g/dL (12.0-18.0)
[2018-04-16 11:39] LABS: ALB/GLOB RATIO 0.9 (1.0-2.1); ALBUMIN 2.5 g/dL (3.5-5.0); ALT/SGPT 16 U/L (21-72); AST/SGOT 15 U/L (17-59); BLOOD UREA NITROGEN 11 mg/dL (9-20); GFR AFRICAN-AMERICAN > 60; GFR NON-AFRICAN AMERICAN > 60
--- NOTE | 2018-04-16 13:54 | CP.PCM.PN ---
Subjective - Date & Time of Evaluation Date of Evaluation: 04/16/18 Time of Evaluation: 10:00 - Subjective Subjective: afebrile wounds inspected iv rx in progress Objective - Vital Signs/Intake and Output Vital Signs (last 24 hours): Temp Pulse Resp BP Pulse Ox 97.5 F L 80 20 99/62 L 98 04/16/18 08:46 04/16/18 08:46 04/16/18 08:46 04/16/18 08:46 04/16/18 08:46 - Medications Medications: Current Medications Aspirin (Aspirin Chewable) 81 mg PO DAILY [facility] Last Admin: 04/16/18 09:09 Dose: 81 mg Dextrose (Dextrose 50% Inj) 0 ml IV STAT PRN; Protocol PRN Reason: Hypoglycemia Protocol Dextrose (Glutose 15) 0 gm PO ONCE PRN; Protocol PRN Reason: Hypoglycemia Protocol Glucagon (Glucagen Diagnostic Kit) 0 mg IM STAT PRN; Protocol PRN Reason: Hypoglycemia Protocol Meropenem 500 mg/ Sodium (Chloride) 100 mls @ 100 mls/hr IVPB Q8 [facility] PRN Reason: Protocol Last Admin: 04/16/18 13:01 Dose: 100 mls/hr Insulin Human Regular (Novolin R) 0 unit SC ACHS [facility] PRN Reason: Protocol Last Admin: 04/16/18 11:45 Dose: 2 units Mupirocin (Bactroban Ointment) 0 gm TOP DAILY [facility] Last Admin: 04/16/18 09:11 Dose: 1 applic Pantoprazole Sodium (Protonix Ec Tab) 40 mg PO DAILY [facility] Last Admin: 04/16/18 09:10 Dose: 40 mg Saccharomyces Boulardii (Florastor) 250 mg PO Q12 [facility] Last Admin: 04/16/18 09:10 Dose: 250 mg - Labs Labs: 04/16/18 11:12 04/16/18 11:12 PT 13.3 SECONDS (9.7-12.2) H 04/02/18 15:25 INR 1.2 04/02/18 15:25 APTT 61 SECONDS (21-34) H D 04/07/18 06:14 - Constitutional Appears: Non-toxic, Chronically Ill - Head Exam Head Exam: NORMOCEPHALIC - Eye Exam Eye Exam: PERRL - ENT Exam ENT Exam: Normal External Ear Exam - Neck Exam Neck Exam: absent: Lymphadenopathy - Respiratory Exam Respiratory Exam: Decreased Breath Sounds - Cardiovascular Exam Cardiovascular Exam: REGULAR RHYTHM - GI/Abdominal Exam GI & Abdominal Exam: Distended, Soft - Rectal Exam Rectal Exam: Deferred - Exam Exam: NORMAL INSPECTION - Extremities Exam Extremities Exam: Pedal Edema. 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
--- NOTE | 2018-04-16 15:54 | CP.PCM.PN ---
Subjective - Date & Time of Evaluation Date of Evaluation: 04/16/18 Time of Evaluation: 15:50 - Subjective Subjective: Podiatry Progress Note for attending Dr. Aldridge 72 year old male was seen and evaluated at bedside for bilateral leg wounds. Patient is AAOx3, resting comfortably in bed at time of visit. His sons were with him at that time. patient is not in acute distress. Patient denies any overnight acute events. Patient denies F/C/N/V/CP/SOB. Patient denies any other pedal complains. Objective - Vital Signs/Intake and Output Vital Signs (last 24 hours): Temp Pulse Resp BP Pulse Ox 97.5 F L 80 20 99/62 L 98 04/16/18 08:46 04/16/18 08:46 04/16/18 08:46 04/16/18 08:46 04/16/18 08:46 Intake and Output: 04/16/18 04/16/18 06:59 18:59 Intake Total 500 Balance 500 - Medications Medications: Current Medications Aspirin (Aspirin Chewable) 81 mg PO DAILY [facility] Last Admin: 04/16/18 09:09 Dose: 81 mg Dextrose (Dextrose 50% Inj) 0 ml IV STAT PRN; Protocol PRN Reason: Hypoglycemia Protocol Dextrose (Glutose 15) 0 gm PO ONCE PRN; Protocol PRN Reason: Hypoglycemia Protocol Glucagon (Glucagen Diagnostic Kit) 0 mg IM STAT PRN; Protocol PRN Reason: Hypoglycemia Protocol Meropenem 500 mg/ Sodium (Chloride) 100 mls @ 100 mls/hr IVPB Q8 [facility] PRN Reason: Protocol Last Admin: 04/16/18 13:01 Dose: 100 mls/hr Insulin Human Regular (Novolin R) 0 unit SC ACHS [facility] PRN Reason: Protocol Last Admin: 04/16/18 11:45 Dose: 2 units Mupirocin (Bactroban Ointment) 0 gm TOP DAILY [facility] Last Admin: 04/16/18 09:11 Dose: 1 applic Pantoprazole Sodium (Protonix Ec Tab) 40 mg PO DAILY [facility] Last Admin: 04/16/18 09:10 Dose: 40 mg Saccharomyces Boulardii (Florastor) 250 mg PO Q12 [facility] Last Admin: 04/16/18 09:10 Dose: 250 mg - Labs Labs: 04/16/18 11:12 04/16/18 11:12 PT 13.3 SECONDS (9.7-12.2) H 04/02/18 15:25 INR 1.2 04/02/18 15:25 APTT 61 SECONDS (21-34) H D 04/07/18 06:14 - Constitutional Appears: Well, Non-toxic, No Acute Distress - Head Exam Head Exam: ATRAUMATIC, NORMOCEPHALIC - Extremities Exam Additional comments: Lower extremity focused exam: Vascular: DP/PT 1/4 B/L. +1 pitting edema to bilateral LE noted. Cap refill <3 secs to all digits, no pedal hair noted Neuro: protective sensation grossly diminished, Gross sensation intact Derm: Multiple ulcerations noted circumferentially around the leg B/L. Erythema noted from the ankle joint to below the tibial tuberosity B/L Left: Ulceration noted to the dorsal distal aspect of the anterior leg with irregular wound border, measuring approximately 5 cm x 4 cm x 0.3 cm, no probe to bone, 100% granular base, no malodor, no purulence, active sero-sanguineous drainage noted, no tunneling or tracking noted, periwound erythema, no clinical signs of infection. Multiple small ulcerations on lateral and posterior aspects of distal leg with regular borders, 100% fibrotic base, no probe to bone, serous drainage noted, no purulence, no tunneling or tracking noted, periwound erythema no clinical signs of infection. Right: Ulceration noted at the distal aspect of dorsal leg, irregular border measuring approximately 5.5 cm x 5 cm x 0.3, no probe to bone, fibrogranular base, no malodor noted, active sanguineous drainage noted, no tunneling or tracking noted, periwound erythema, no clinical signs of infection noted. MSK: Mild pain on palpation of leg ulceration sites bilaterally. - Neurological Exam Neurological Exam: Alert, Awake, Oriented x3 - Psychiatric Exam Psychiatric exam: Normal Affect, Normal Mood Assessment and Plan - Assessment and Plan (Free Text) Assessment: 72 year old male patient seen and evaluated for multiple, chronic venous stasis ulcerations of the leg bilaterally. Plan: Patient was seen and evaluated at the bedside Discussed plan with attending Dr. Aldridge Bilateral leg ulcers dressed with xeroform, gauze, ABD pads and kerlix and EVON bandage Podiatry to continue local wound care to legs. Multipodus boots to be kept on at all times in bed Patient is stable from podiatry standpoint Podiatry will continue to follow up patient while in house
--- NOTE | 2018-04-16 20:01 | CP.PCM.PN ---
Subjective - Date & Time of Evaluation Date of Evaluation: 04/16/18 Time of Evaluation: 19:58 - Subjective Subjective: Patient is now feeling well. No cough no chest pain noted. Eating well. Still having diarrhea. Leg swelling noted. Dressing was not changed recently On examination: Vital signs stable. Chest bilateral good air entry no pedal edema noted Assessment and recognition: 72-year-old male with history of septic shock recently admitted with multiorgan failure. Patient now received blood transfusion yesterday. Hemoglobin is stable. Diarrhea persistently noted. Continue to monitor. Patient will need wound management. Also intravenous antibiotic. We will follow the patient. Tomorrow possibly discharged to long-term acute care Objective - Vital Signs/Intake and Output Vital Signs (last 24 hours): Temp Pulse Resp BP Pulse Ox 97.6 F 83 20 98/64 L 96 04/16/18 16:00 04/16/18 16:00 04/16/18 16:00 04/16/18 16:00 04/16/18 16:00 Intake and Output: 04/16/18 04/17/18 18:59 06:59 Intake Total 500 Balance 500 - Medications Medications: Current Medications Aspirin (Aspirin Chewable) 81 mg PO DAILY [facility] Last Admin: 04/16/18 09:09 Dose: 81 mg Dextrose (Dextrose 50% Inj) 0 ml IV STAT PRN; Protocol PRN Reason: Hypoglycemia Protocol Dextrose (Glutose 15) 0 gm PO ONCE PRN; Protocol PRN Reason: Hypoglycemia Protocol Glucagon (Glucagen Diagnostic Kit) 0 mg IM STAT PRN; Protocol PRN Reason: Hypoglycemia Protocol Meropenem 500 mg/ Sodium (Chloride) 100 mls @ 100 mls/hr IVPB Q8 [facility] PRN Reason: Protocol Last Admin: 04/16/18 13:01 Dose: 100 mls/hr Insulin Human Regular (Novolin R) 0 unit SC ACHS [facility] PRN Reason: Protocol Last Admin: 04/16/18 16:41 Dose: Not Given Mupirocin (Bactroban Ointment) 0 gm TOP DAILY [facility] Last Admin: 04/16/18 09:11 Dose: 1 applic Pantoprazole Sodium (Protonix Ec Tab) 40 mg PO DAILY [facility] Last Admin: 04/16/18 09:10 Dose: 40 mg Saccharomyces Boulardii (Florastor) 250 mg PO Q12 [facility] Last Admin: 04/16/18 09:10 Dose: 250 mg - Labs Labs: 04/16/18 11:12 04/16/18 11:12 PT 13.3 SECONDS (9.7-12.2) H 04/02/18 15:25 INR 1.2 04/02/18 15:25 APTT 61 SECONDS (21-34) H D 04/07/18 06:14
[2018-04-16] MEDS ORDERED: Acetaminophen-Codeine 300/30 mg Tab PO ONE (21:00)
--- NOTE | 2018-04-16 22:47 | CP.PCM.PN ---
Subjective - Date & Time of Evaluation Date of Evaluation: 04/16/18 Time of Evaluation: 13:05 - Subjective Subjective: Patient seen and evaluated Denies chest pain and dyspnea Comfortable No cardiac events noted Objective - Vital Signs/Intake and Output Vital Signs (last 24 hours): Temp Pulse Resp BP Pulse Ox 97.6 F 83 20 98/64 L 96 04/16/18 16:00 04/16/18 16:00 04/16/18 16:00 04/16/18 16:00 04/16/18 16:00 Intake and Output: 04/16/18 04/17/18 18:59 06:59 Intake Total 500 Balance 500 - Medications Medications: Current Medications Aspirin (Aspirin Chewable) 81 mg PO DAILY [facility] Last Admin: 04/16/18 09:09 Dose: 81 mg Dextrose (Dextrose 50% Inj) 0 ml IV STAT PRN; Protocol PRN Reason: Hypoglycemia Protocol Dextrose (Glutose 15) 0 gm PO ONCE PRN; Protocol PRN Reason: Hypoglycemia Protocol Glucagon (Glucagen Diagnostic Kit) 0 mg IM STAT PRN; Protocol PRN Reason: Hypoglycemia Protocol Meropenem 500 mg/ Sodium (Chloride) 100 mls @ 100 mls/hr IVPB Q8 [facility] PRN Reason: Protocol Last Admin: 04/16/18 21:28 Dose: 100 mls/hr Insulin Human Regular (Novolin R) 0 unit SC ACHS [facility] PRN Reason: Protocol Last Admin: 04/16/18 21:32 Dose: Not Given Mupirocin (Bactroban Ointment) 0 gm TOP DAILY [facility] Last Admin: 04/16/18 09:11 Dose: 1 applic Pantoprazole Sodium (Protonix Ec Tab) 40 mg PO DAILY [facility] Last Admin: 04/16/18 09:10 Dose: 40 mg Saccharomyces Boulardii (Florastor) 250 mg PO Q12 [facility] Last Admin: 04/16/18 21:27 Dose: 250 mg - Labs Labs: 04/16/18 11:12 04/16/18 11:12 PT 13.3 SECONDS (9.7-12.2) H 04/02/18 15:25 INR 1.2 04/02/18 15:25 APTT 61 SECONDS (21-34) H D 04/07/18 06:14
[2018-04-17] MEDS: Meropenem 500 MG in Sodium Chloride 0.9% 100 ML IVPB SCH ×2 (06:01→14:10)
[2018-04-17] MEDS: (Novolin R) Insulin Human Regular 100 units/ml vial SC SCH ×3 (07:06→17:15)
[2018-04-17 07:54] VITALS: TEMP 97.7
[2018-04-17] MEDS: Saccharomyces Boulardi 250 mg Cap PO SCH (09:11)
[2018-04-17] MEDS: Pantoprazole 40 mg EC Tab PO SCH (09:11)
--- NOTE | 2018-04-17 12:32 | CP.PCM.PN ---
Subjective - Date & Time of Evaluation Date of Evaluation: 04/17/18 Time of Evaluation: 12:32 Objective - Vital Signs/Intake and Output Vital Signs (last 24 hours): Temp Pulse Resp BP Pulse Ox 97.7 F 74 20 97/64 L 98 04/17/18 07:53 04/17/18 07:53 04/17/18 07:53 04/17/18 07:53 04/17/18 07:53 - Medications Medications: Current Medications Aspirin (Aspirin Chewable) 81 mg PO DAILY [facility] Last Admin: 04/17/18 09:11 Dose: 81 mg Dextrose (Dextrose 50% Inj) 0 ml IV STAT PRN; Protocol PRN Reason: Hypoglycemia Protocol Dextrose (Glutose 15) 0 gm PO ONCE PRN; Protocol PRN Reason: Hypoglycemia Protocol Glucagon (Glucagen Diagnostic Kit) 0 mg IM STAT PRN; Protocol PRN Reason: Hypoglycemia Protocol Meropenem 500 mg/ Sodium (Chloride) 100 mls @ 100 mls/hr IVPB Q8 [facility] PRN Reason: Protocol Last Admin: 04/17/18 06:01 Dose: 100 mls/hr Insulin Human Regular (Novolin R) 0 unit SC ACHS [facility] PRN Reason: Protocol Last Admin: 04/17/18 11:29 Dose: Not Given Mupirocin (Bactroban Ointment) 0 gm TOP DAILY [facility] Last Admin: 04/17/18 09:12 Dose: 1 applic Pantoprazole Sodium (Protonix Ec Tab) 40 mg PO DAILY [facility] Last Admin: 04/17/18 09:11 Dose: 40 mg Saccharomyces Boulardii (Florastor) 250 mg PO Q12 [facility] Last Admin: 04/17/18 09:11 Dose: 250 mg - Labs Labs: 04/16/18 11:12 04/16/18 11:12 PT 13.3 SECONDS (9.7-12.2) H 04/02/18 15:25 INR 1.2 04/02/18 15:25 APTT 61 SECONDS (21-34) H D 04/07/18 06:14 Assessment and Plan - Assessment and Plan (Free Text) Assessment: DISCHARGE TO [facility] CONTINUE ALL YOUR HOME MEDICATION NEW PRESCRIPTION GIVEN MERREM IV Q8 500MG FOR 10 DAYS STOP THE ELIQUIS DUE TO HIGH RISK OF BLEEDING ACTIVITY TOLERATED WOUND CARE ORDER AND FACILITY PROTOCOL PICC LINE CARE PER FACILITY PROTOCOL CALL DR LR FOR FURTHER ORDER
--- NOTE | 2018-04-17 12:49 | CP.PCM.PN ---
Subjective - Date & Time of Evaluation Date of Evaluation: 04/17/18 Time of Evaluation: 06:00 - Subjective Subjective: afebrile wounds inspected iv rx in progress Objective - Vital Signs/Intake and Output Vital Signs (last 24 hours): Temp Pulse Resp BP Pulse Ox 97.7 F 74 20 97/64 L 98 04/17/18 07:53 04/17/18 07:53 04/17/18 07:53 04/17/18 07:53 04/17/18 07:53 - Medications Medications: Current Medications Aspirin (Aspirin Chewable) 81 mg PO DAILY [facility] Last Admin: 04/17/18 09:11 Dose: 81 mg Dextrose (Dextrose 50% Inj) 0 ml IV STAT PRN; Protocol PRN Reason: Hypoglycemia Protocol Dextrose (Glutose 15) 0 gm PO ONCE PRN; Protocol PRN Reason: Hypoglycemia Protocol Glucagon (Glucagen Diagnostic Kit) 0 mg IM STAT PRN; Protocol PRN Reason: Hypoglycemia Protocol Meropenem 500 mg/ Sodium (Chloride) 100 mls @ 100 mls/hr IVPB Q8 [facility] PRN Reason: Protocol Last Admin: 04/17/18 06:01 Dose: 100 mls/hr Insulin Human Regular (Novolin R) 0 unit SC ACHS [facility] PRN Reason: Protocol Last Admin: 04/17/18 11:29 Dose: Not Given Mupirocin (Bactroban Ointment) 0 gm TOP DAILY [facility] Last Admin: 04/17/18 09:12 Dose: 1 applic Pantoprazole Sodium (Protonix Ec Tab) 40 mg PO DAILY [facility] Last Admin: 04/17/18 09:11 Dose: 40 mg Saccharomyces Boulardii (Florastor) 250 mg PO Q12 [facility] Last Admin: 04/17/18 09:11 Dose: 250 mg - Labs Labs: 04/16/18 11:12 04/16/18 11:12 PT 13.3 SECONDS (9.7-12.2) H 04/02/18 15:25 INR 1.2 04/02/18 15:25 APTT 61 SECONDS (21-34) H D 04/07/18 06:14 - Constitutional Appears: Well - Head Exam Head Exam: ATRAUMATIC, NORMAL INSPECTION, NORMOCEPHALIC - Eye Exam Eye Exam: EOMI, Normal appearance, PERRL Pupil Exam: NORMAL ACCOMODATION, PERRL - ENT Exam ENT Exam: Mucous Membranes Moist, Normal Exam - Neck Exam Neck Exam: Full ROM, Normal Inspection. absent: Lymphadenopathy - Respiratory Exam Respiratory Exam: Clear to Ausculation Bilateral, NORMAL BREATHING PATTERN - Cardiovascular Exam Cardiovascular Exam: REGULAR RHYTHM, +S1, +S2. absent: Murmur - GI/Abdominal Exam GI & Abdominal Exam: Soft, Normal Bowel Sounds. absent: Tenderness - Rectal Exam Rectal Exam: NORMAL INSPECTION - Exam Exam: Circumcision, NORMAL INSPECTION - Extremities Exam Extremities Exam: Full ROM, Normal Capillary Refill, Normal Inspection. absent : Joint Swelling, Pedal Edema - Back Exam Back Exam: NORMAL INSPECTION - Neurological Exam Neurological Exam: Alert, Awake, CN II-XII Intact, Motor Sensory Deficit, Oriented x3 - Psychiatric Exam Psychiatric exam: Depressed - Skin Skin Exam: Dry, Erythema. 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
[2018-04-17 19:27] VITALS: BP 107/59; PULSE 78; O2SAT 97
--- NOTE | 2018-04-17 22:34 | CP.PCM.PN ---
Subjective - Date & Time of Evaluation Date of Evaluation: 04/17/18 Time of Evaluation: 07:30 - Subjective Subjective: Patient seen and evaluated denies chest pain and dyspnea Possible discharge today Objective - Vital Signs/Intake and Output Vital Signs (last 24 hours): Temp Pulse Resp BP Pulse Ox 97.7 F 78 20 107/59 L 97 04/17/18 16:00 04/17/18 16:00 04/17/18 16:00 04/17/18 16:00 04/17/18 16:00 - Labs Labs: 04/16/18 11:12 04/16/18 11:12 PT 13.3 SECONDS (9.7-12.2) H 04/02/18 15:25 INR 1.2 04/02/18 15:25 APTT 61 SECONDS (21-34) H D 04/07/18 06:14
--- NOTE | 2018-04-18 20:17 | CP.PCM.DIS ---
Provider - Provider Date of Admission: 04/02/18 16:36 Attending physician: Bishop Lr MD Time Spent in preparation of Discharge (in minutes): 45 Hospital Course - Lab Results Lab Results: Micro Results 04/08/18 05:45 Blood-Venous Blood Culture - Final NO GROWTH AFTER 5 DAYS 04/08/18 05:45 Blood-Venous Gram Stain - Final TEST NOT PERFORMED 04/08/18 06:15 Blood-Venous Blood Culture - Final NO GROWTH AFTER 5 DAYS 04/08/18 06:15 Blood-Venous Gram Stain - Final TEST NOT PERFORMED 04/10/18 09:15 Stool Stool Culture - Final NO SALMONELLA, SHIGELLA OR CAMPYLOBACTER ISOLATED. 04/07/18 05:36 Blood-Venous Blood Culture - Final NO GROWTH AFTER 5 DAYS 04/07/18 05:36 Blood-Venous Gram Stain - Final TEST NOT PERFORMED 04/07/18 05:00 Blood-Venous Blood Culture - Final NO GROWTH AFTER 5 DAYS 04/07/18 05:00 Blood-Venous Gram Stain - Final TEST NOT PERFORMED 04/07/18 22:46 Nose MRSA Culture - Final MRSA NOT DETECTED 04/02/18 15:50 Blood Blood Culture - Final Pasteurella Multocida 04/02/18 15:50 Blood Gram Stain - Final 04/02/18 15:00 Blood Blood Culture - Final Pasteurella Multocida 04/02/18 15:00 Blood Gram Stain - Final 04/03/18 14:00 Stool Stool Culture - Final NO SALMONELLA, SHIGELLA OR CAMPYLOBACTER ISOLATED. 04/03/18 14:00 Stool Ova and Parasite Concentrate Exam - Final 04/02/18 18:51 Leg - Right Gram Stain - Final 04/02/18 18:51 Leg - Right Wound Culture - Final Serratia Marcescens Sphingomonas Paucimobilis 04/02/18 16:54 Urine,Catheterized Urine Culture - Final No Growth (<1,000 CFU/ML) 04/02/18 18:51 Naris MRSA Culture (Admit) - Final MRSA NOT DETECTED Most Recent Lab Values WBC 6.3 K/uL (4.8-10.8) 04/16/18 11:12 RBC 3.03 Mil/uL (4.40-5.90) L 04/16/18 11:12 Hgb 9.6 g/dL (12.0-18.0) L D 04/16/18 11:12 Hct 28.9 % (35.0-51.0) L 04/16/18 11:12 MCV 95.3 fL (80.0-94.0) H 04/16/18 11:12 MCH 31.6 pg (27.0-31.0) H 04/16/18 11:12 MCHC 33.2 g/dL (33.0-37.0) 04/16/18 11:12 RDW 14.7 % (11.5-14.5) H 04/16/18 11:12 Plt Count 226 K/uL (130-400) 04/16/18 11:12 MPV 8.6 fL (7.2-11.7) 04/16/18 11:12 Neut % (Auto) 77.3 % (50.0-75.0) H 04/16/18 11:12 Lymph % (Auto) 11.9 % (20.0-40.0) L 04/16/18 11:12 [place] % (Auto) 7.5 % (0.0-10.0) 04/16/18 11:12 Eos % (Auto) 1.7 % (0.0-4.0) 04/16/18 11:12 Baso % (Auto) 1.6 % (0.0-2.0) 04/16/18 11:12 Neut # (Auto) 4.9 K/uL (1.8-7.0) 04/16/18 11:12 Lymph # (Auto) 0.7 K/uL (1.0-4.3) L 04/16/18 11:12 [place] # (Auto) 0.5 K/uL (0.0-0.8) 04/16/18 11:12 Eos # (Auto) 0.1 K/uL (0.0-0.7) 04/16/18 11:12 Baso # (Auto) 0.1 K/uL (0.0-0.2) 04/16/18 11:12 Neutrophils % (Manual) 87 % (50-75) H 04/14/18 08:07 Band Neutrophils % 2 % (0-2) 04/12/18 06:25 Lymphocytes % (Manual) 8 % (20-40) L 04/14/18 08:07 Reactive Lymphs % 1 % (0-0) H 04/08/18 06:36 Monocytes % (Manual) 5 % (0-10) 04/14/18 08:07 Eosinophils % (Manual) 2 % (0-4) 04/12/18 06:25 Basophils % (Manual) 1 % (0-2) 04/11/18 07:41 Metamyelocytes % 1 % (0-0) H 04/12/18 06:25 Myelocytes % 1 % (0-0) H 04/11/18 07:41 Promyelocytes % 1 % (0-0) H 04/06/18 21:47 Differential Comment 04/06/18 12:32 Toxic Granulation Present 04/12/18 06:25 Platelet Estimate Normal (NORMAL) 04/14/18 08:07 Plt Clumps, EDTA Present 04/06/18 21:47 Large Platelets Present 04/12/18 06:25 Giant Platelets Present 04/06/18 21:47 RBC Morphology Normal 04/14/18 08:07 Polychromasia Slight 04/13/18 16:21 Hypochromasia (manual) Slight 04/13/18 16:21 Poikilocytosis (manual Slight 04/06/18 06:18 Anisocytosis (manual) Slight 04/12/18 06:25 Microcytosis (manual) Slight 04/02/18 22:30 Macrocytosis (manual) Slight 04/02/18 22:30 Ovalocytes Slight 04/06/18 06:18 [place] Cells Slight 04/02/18 22:30 Smear Path Review 04/02/18 15:25 PT 13.3 SECONDS (9.7-12.2) H 04/02/18 15:25 INR 1.2 04/02/18 15:25 APTT 61 SECONDS (21-34) H D 04/07/18 06:14 Puncture Site Rr 04/04/18 05:17 pCO2 32 mm/Hg (35-45) L 04/04/18 05:17 pO2 98 mm/Hg (80-100) 04/04/18 05:17 HCO3 25.7 mmol/L (21-28) 04/04/18 05:17 ABG pH 7.48 (7.35-7.45) H 04/04/18 05:17 ABG Total CO2 24.8 mmol/L (22-28) 04/04/18 05:17 ABG O2 Saturation 97.1 % (95-98) 04/04/18 05:17 ABG Base Excess 0.9 mmol/L (-2.0-3.0) 04/04/18 05:17 [place] Test Pos 04/04/18 05:17 ABG Potassium 2.7 mmol/L (3.6-5.2) L 04/04/18 05:17 VBG pH 7.24 (7.32-7.43) L 04/02/18 20:49 VBG pCO2 27 mmHg (40-60) L 04/02/18 20:49 VBG HCO3 12.9 mmol/L 04/02/18 20:49 VBG Total CO2 12.4 mmol/L (22-28) L 04/02/18 20:49 VBG O2 Sat (Calc) 76.8 % (40-65) H 04/02/18 20:49 VBG Base Excess -14.2 mmol/L (0.0-2.0) L 04/02/18 20:49 VBG Potassium 4.0 mmol/L (3.6-5.2) 04/02/18 20:49 A-a O2 Difference 76.0 mm/Hg 04/04/18 05:17 Respiratory Index 0.8 04/04/18 05:17 Sodium 136.0 mmol/l (132-148) 04/04/18 05:17 Chloride 106.0 mmol/L (98-107) 04/04/18 05:17 Glucose 259 mg/dl (75-110) H 04/04/18 05:17 Lactate 1.5 mmol/L (0.7-2.1) 04/04/18 05:17 Liter Flow 3.0 04/02/18 20:40 Vent Mode Bipap 04/04/18 05:17 FiO2 30.0 % 04/04/18 05:17 Inspiratory BiPAP 10 04/04/18 05:17 Expiratory BiPAP 5 04/04/18 05:17 Crit Value Called To Francisco Javier lee 04/02/18 22:42 Crit Value Called By Ghazala 04/02/18 22:42 Crit Value Read Back Y 04/02/18 22:42 Blood Gas Notified Time 04804/02/18 22:42 Sodium 139 mmol/L (132-148) 04/16/18 11:12 Potassium 4.5 mmol/L (3.6-5.2) 04/16/18 11:12 Chloride 111 mmol/L (98-107) H 04/16/18 11:12 Carbon Dioxide 19 mmol/L (22-30) L 04/16/18 11:12 Anion Gap 14 (10-20) 04/16/18 11:12 BUN 11 mg/dL (9-20) 04/16/18 11:12 Creatinine 1.1 mg/dL (0.8-1.5) 04/16/18 11:12 Est GFR ( Amer) > 60 04/16/18 11:12 Est GFR (Non-Af Amer) > 60 04/16/18 11:12 POC Glucose (mg/dL) 116 mg/dL (65-110) H 04/17/18 16:53 Random Glucose 158 mg/dL (75-110) H 04/16/18 11:12 Hemoglobin A1c 7.2 % (4.2-6.5) H 04/03/18 06:28 Lactic Acid 0.7 mmol/L (0.7-2.1) 04/13/18 16:21 Calcium 8.0 mg/dl (8.6-10.4) L 04/16/18 11:12 Phosphorus 2.6 mg/dL (2.5-4.5) 04/15/18 07:51 Magnesium 1.5 mg/dL (1.6-2.3) L 04/15/18 07:51 Total Bilirubin 0.3 mg/dL (0.2-1.3) 04/16/18 11:12 AST 15 U/L (17-59) L D 04/16/18 11:12 ALT 16 U/L (21-72) L D 04/16/18 11:12 Alkaline Phosphatase 93 U/L (38-126) 04/16/18 11:12 Total Creatine Kinase 476 U/L (55-170) H 04/02/18 16:10 CK-MB (Mass) 12.1 ng/mL (0.0-3.38) H 04/02/18 16:10 Troponin I 0.0520 ng/mL (0.00-0.120) 04/03/18 00:55 NT-Pro-B Natriuret Pep 5290 pg/mL (0-900) H 04/02/18 18:08 Total Protein 5.3 g/dL (6.3-8.3) L 04/16/18 11:12 Albumin 2.5 g/dL (3.5-5.0) L D 04/16/18 11:12 Globulin 2.8 gm/dL (2.2-3.9) 04/16/18 11:12 Albumin/Globulin Ratio 0.9 (1.0-2.1) L 04/16/18 11:12 Triglycerides 163 mg/dL (0-149) H 04/03/18 06:23 Cholesterol 83 mg/dL (0-199) 04/03/18 06:23 LDL Cholesterol Direct 33 mg/dL (0-129) 04/03/18 06:23 HDL Cholesterol 14 mg/dL (30-70) L 04/03/18 06:23 Ethanolamine None detected 04/02/18 07:34 Procalcitonin 0.37 NG/ML (0.19-0.49) 04/09/18 13:46 Free T4 1.35 ng/dL (0.78-2.19) 04/03/18 17:30 TSH 3rd Generation 1.57 mIU/L (0.46-4.68) 04/03/18 17:31 Arterial Blood Potassium 2.7 mmol/L (3.6-5.2) L 04/04/18 05:17 Venous Blood Potassium 4.0 mmol/L (3.6-5.2) 04/02/18 20:49 Urine Color Yellow (YELLOW) 04/02/18 16:03 Urine Clarity Hazy (Clear) 04/02/18 16:03 Urine pH 5.0 (5.0-8.0) 04/02/18 16:03 Ur Specific [place] 1.014 (1.003-1.030) 04/02/18 16:03 Urine Protein Negative mg/dL (NEGATIVE) 04/02/18 16:03 Urine Glucose (UA) Normal mg/dL (Normal) 04/02/18 16:03 Urine Ketones Negative mg/dL (NEGATIVE) 04/02/18 16:03 Urine Blood 1+ (NEGATIVE) H 04/02/18 16:03 Urine Nitrate Negative (NEGATIVE) 04/02/18 16:03 Urine Bilirubin Negative (NEGATIVE) 04/02/18 16:03 Urine Urobilinogen Normal mg/dL (0.2-1.0) 04/02/18 16:03 Ur Leukocyte Esterase 1+ [place]/uL (Negative) H 04/02/18 16:03 Urine WBC (Auto) 7 /hpf (0-5) H 04/02/18 16:03 Urine RBC (Auto) 7 /hpf (0-3) H 04/02/18 16:03 Ur Squamous Epith Cells 1 /hpf (0-5) 04/02/18 16:03 Urine Bacteria Rare (<OCC) 04/02/18 16:03 Stool Occult Blood Positive (NEGATIVE) H 04/06/18 15:40 Vancomycin Trough 14.0 ug/mL (5.0-10.0) H 04/03/18 19:27 Random Vancomycin 12.0 ug/mL 04/04/18 06:20 Digoxin < 0.4 ng/mL (0.8-2.0) L 04/02/18 21:16 Urine Opiates Screen Negative (NEGATIVE) 04/03/18 00:57 Urine Methadone Screen Negative (NEGATIVE) 04/03/18 00:57 Ur Barbiturates Screen Negative (NEGATIVE) 04/03/18 00:57 Ur Phencyclidine Scrn Negative (NEGATIVE) 04/03/18 00:57 Ur Amphetamines Screen Negative (NEGATIVE) 04/03/18 00:57 U Benzodiazepines Scrn Negative (NEGATIVE) 04/03/18 00:57 U Oth Cocaine Metabols Negative (NEGATIVE) 04/03/18 00:57 U Cannabinoids Screen Negative (NEGATIVE) 04/03/18 00:57 Toxicology Panel see note 04/02/18 07:34 Methyl Alcohol Level None detected 04/02/18 07:34 Isopropanol None detected 04/02/18 07:34 Acetone Level None detected 04/02/18 07:34 C. difficile Ag & Toxin Negative (NEGATIVE) 04/12/18 03:13 Hep Bs Antigen Negative (NEGATIVE) 04/02/18 19:27 Hep Bs Antibody Negative (NEGATIVE) 04/02/18 19:27 Hep B Core IgM Ab Negative (NEGATIVE) 04/02/18 19:27 Hepatitis C Antibody Negative (NEGATIVE) 04/02/18 19:27 Blood Type A POSITIVE 04/15/18 11:45 Antibody Screen Negative 04/15/18 11:45 - Hospital Course Hospital Course: Hospital course: 72-year-old male with history of arthritis, history of colon polyp, kidney stones, renal insufficiency, glaucoma, history of partial colectomy in 2014, and also underwent additional lysis following acute intestinal obstruction 1 year ago. Patient initially hospitalized with acute hypotension, elevated WBC, and severe septic shock. Patient was initially admitted to the intensive care unit with the severe hypotension, acute renal insufficiency. Patient brought to the hospital because of the fall from the chair getting weak , and confusion. Past medical history: History of colon polyp, renal stones, renal insufficiency, glaucoma, history of arthritis. Surgical history: Partial colectomy in 2014. Also underwent additional lysis central ventral hernia repair in 2016. Patient also suffering from chronic bilateral leg edema, venous insufficiency, cellulitis. On on hospitalization patient had a significant infected leg ulcer, and maggots are found also. Temporary hemodialysis was done. With antibiotic, IV hydration, his condition got better. Patient initial blood culture was positive for Pasteurella multocida which was sensitive to meropenem, cefazolin. The wound culture also positive for Serratia, sphingomonos. Following that all the blood cultures were negative. Patient had echocardiogram also showing evidence of atrial fibrillation. He was placed on anticoagulation orally. But during the hospital stay, patient hemoglobin was dropped. He was also having repeated episodes of diarrhea. Stool C. difficile was negative persistently. Stool occult blood was positive. Latest blood works are stable. Discussed with infectious disease, patient will need antibiotic of meropenem for at least 10 more days. We will also need frequent dressing of the leg ulcers. Patient currently agreeing for long-term acute care. Patient is clinically stable for long-term acute care. He will be continuing the antibiotic, dressing, physical therapy. Close monitoring. Repeated blood works. Discussed with the family also. We will follow the patient Final diagnosis: Acute septic shock, secondary to cellulitis. Acute renal failure. Multiorgan failure improving. Anemia. Atrial fibrillation. Renal insufficiency. Stable at this time. We will continue to monitor Discharge Exam - Head Exam Head Exam: ATRAUMATIC, NORMAL INSPECTION, NORMOCEPHALIC Discharge Plan - Follow Up Plan Condition: GOOD Disposition: [facility] Instructions: Acute Kidney Failure (DC), Sepsis, Adult (DC) Additional Instructions: DISCHARGE TO [facility] CONTINUE ALL YOUR HOME MEDICATION NEW PRESCRIPTION GIVEN MERREM IV Q8 500MG FOR 10 DAYS STOP THE ELIQUIS DUE TO HIGH RISK OF BLEEDING ACTIVITY TOLERATED WOUND CARE ORDER AND FACILITY PROTOCOL PICC LINE CARE PER FACILITY PROTOCOL CALL DR LR FOR FURTHER ORDER Referrals: Troy Henriquez MD [Staff Provider] - Keven Luna MD [Staff Provider] - Westley Valdez MD [Staff Provider] - Bishop Lr MD [Staff Provider] -
== END 2018-04-17 19:56 | DRG 871 ==
LOC: C.ER 14:59 → C.9I 16:36 → C.6T 04-07 23:02 → C.5S 04-11 11:05
PROVIDERS: ADMIT Internal Medicine; ATTEND Internal Medicine
PROC: 5A1D70Z Performance of Urinary Filtration, Intermittent, Less than 6 Hours Per Day (ICD-10-PCS; principal; 2018-04-02)
PROC: 06HM33Z Insertion of Infusion Device into Right Femoral Vein, Percutaneous Approach (ICD-10-PCS; 2018-04-02)
PROC: 5A09457 Assistance with Respiratory Ventilation, 24-96 Consecutive Hours, Continuous Positive Airway Pressure (ICD-10-PCS; 2018-04-03)
PROC: 5A1D70Z Performance of Urinary Filtration, Intermittent, Less than 6 Hours Per Day (ICD-10-PCS; 2018-04-04)
DX: A41.4 Sepsis due to anaerobes (principal); R65.21 Severe sepsis with septic shock; G93.41 Metabolic encephalopathy; J96.91 Respiratory failure, unspecified with hypoxia; C18.9 Malignant neoplasm of colon, unspecified; A04.72 Enterocolitis due to Clostridium difficile, not specified as recurrent; N17.9 Acute kidney failure, unspecified; A28.0 Pasteurellosis; E87.2 Acidosis; I50.42 Chronic combined systolic (congestive) and diastolic (congestive) heart failure; I47.1 Supraventricular tachycardia; L03.116 Cellulitis of left lower limb; L03.115 Cellulitis of right lower limb; I13.0 Hypertensive heart and chronic kidney disease with heart failure and stage 1 through stage 4 chronic kidney disease, or unspecified chronic kidney disease; K56.609 Unspecified intestinal obstruction, unspecified as to partial versus complete obstruction; L97.919 Non-pressure chronic ulcer of unspecified part of right lower leg with unspecified severity; L97.929 Non-pressure chronic ulcer of unspecified part of left lower leg with unspecified severity; N18.4 Chronic kidney disease, stage 4 (severe); E11.22 Type 2 diabetes mellitus with diabetic chronic kidney disease; D69.6 Thrombocytopenia, unspecified; D63.1 Anemia in chronic kidney disease; D35.02 Benign neoplasm of left adrenal gland; E11.622 Type 2 diabetes mellitus with other skin ulcer; E87.5 Hyperkalemia; I48.91 Unspecified atrial fibrillation; H40.9 Unspecified glaucoma; E66.9 Obesity, unspecified; K44.9 Diaphragmatic hernia without obstruction or gangrene; K80.20 Calculus of gallbladder without cholecystitis without obstruction; M19.90 Unspecified osteoarthritis, unspecified site; N28.1 Cyst of kidney, acquired; N62 Hypertrophy of breast; W07.XXXA Fall from chair, initial encounter; Z66 Do not resuscitate; Z79.01 Long term (current) use of anticoagulants; Z79.82 Long term (current) use of aspirin; Z85.038 Personal history of other malignant neoplasm of large intestine; Z86.010 Personal history of colon polyps; Z87.442 Personal history of urinary calculi; Z87.891 Personal history of nicotine dependence; Z90.49 Acquired absence of other specified parts of digestive tract; I95.9 Hypotension, unspecified